=== PATIENT | female | born 1935 | race Caucasian/White ===

== ENCOUNTER → 2017-08-24 10:16 | Outpatient (CLI) | payer MEDICARE, SELFPAY ==
[2017-08-24 11:11] LABS: Add Manual Diff / Slide Review NO; Basophils Percent Auto 0.6 % (0-2); Eosinophils Percent Auto 1.6 % (2-4); Hematocrit 41.4 % (36-46); Hemoglobin 13.9 g/dL (12.0-16.0); Lymphocytes Percent Auto 24.3 % (25-40); Mean Corpuscular HGB Conc 33.7 % (30-36); Mean Corpuscular Hemoglobin 29.8 PG (26-34); Mean Corpuscular Volume 88.5 fL (80-100); Monocytes Percent Auto 7.4 % (3-14); Neutrophils Absolute Auto 5400 /uL (3000-5900); Neutrophils Percent Auto 66.1 % (50-75); Platelet Count 230 X10^3/uL (150-400); Red Blood Cell Count 4.68 X10^6/uL (4.0-5.2); Red Cell Distribution Width 13.9 % (11.6-14.8); White Blood Cell Count 8.2 X10^3/uL (4.5-11.0)
[2017-08-24 11:28] LABS: Alanine Aminotransferase 22 IU/L (9-52); Albumin Globulin Ratio 1.3 (1.0-2.8); Alkaline Phosphatase 71 U/L (38-126); Aspartate Aminotransferase 15 IU/L (14-36); Bilirubin Total 0.6 mg/dL (0.2-1.3); Blood Urea Nitrogen 20 mg/dL (7-17); Calcium 10.6 mg/dL (8.4-10.2); Carbon Dioxide 29 mmol/L (22-32); Chloride 99 mmol/L (98-107); Estimated Glomerular Filt Rate > 60.0 mL/min (>60); Glucose 138 mg/dL (80-110); HEMOLYSIS < 15 (0-50); Potassium 4.3 mmol/L (3.4-5.1); Sodium 138 mmol/L (137-145)
[2017-08-24 11:29] LABS: C-Reactive Protein Quant < 0.5 mg/dL (<1.0)
[2017-08-24 11:36] LABS: Hemoglobin A1C% w Est Avg Glu 7.4 % (4.0-6.0)
[2017-08-24 11:38] LABS: Erythrocyte Sedimentation Rate 2 MM/HR (0-20)
[2017-08-24 12:40] LABS: Thyroid Stimulating Hormone 1.45 uIU/mL (0.47-4.68)
== END ==
PROVIDERS: PCP Family Medicine; Visit Provider Family Medicine
DX: R41.3 Other amnesia (principal); E11.9 Type 2 diabetes mellitus without complications
CPT/HCPCS: 36415; 80053; 83036; 84443; 85025; 85651; 86140

== ENCOUNTER → 2017-08-26 06:40 | Outpatient (CLI) | payer MEDICARE, SELFPAY ==
--- NOTE | 2017-08-26 06:42 | DI.MRI.S_ITS ---
PROCEDURE: MR STROKE Pre- and post-contrast brain MRI, non-contrast brain MR angiogram, pre- and postcontrast neck MR angiogram INDICATIONS: memoruy imp TECHNIQUE: Brain: Noncontrast axial T1 spin echo, axial T2 fast spin echo, sagittal and axial FLAIR, coronal T2 fast spin echo, axial gradient echo, axial diffusion and ADC through the brain. After the administration of contrast, axial 3D VIBE of the cranial vasculature and brain. Brain MRA: Non-contrast 3-D time of flight MR angiogram, with multiple pdpfdzc-gmfrxsjub-rrsnorzflw (MIP) reformats performed. Neck MRA: Axial and sagittal TruFISP through the neck. Coronal dynamic MR angiogram during administration of contrast in the arterial and venous phases, with 3-dimenstional uubqgyc-tszyhiwzq-othcelbhta (MIP) reformats constructed from subtraction images. COMPARISON: [facility], , CAROTID ARTERY DOPPLER BILAT, 04/30/2016, 10:45. FINDINGS: Image quality: Partially degraded by motion artifact. BRAIN: CSF spaces: Ventricles are normal in size and shape. Basal cisterns are patent. No extra-axial fluid collections. Brain: No intracranial bleeds or mass effects. Moderate diffuse cerebral volume loss is present. There is a mild degree of patchy low signal intensity within the periventricular and subcortical white matter. Marie-white matter interface is normal. Diffusion weighted images show no acute ischemic insults. Brainstem appears normal. Normal intravascular flow voids are present. No abnormal intracranial enhancement. Skull and face: Calvarial marrow signal is normal. Orbits appear normal. Sinuses: Sinuses and mastoids are clear. BRAIN MR ANGIOGRAM: Anterior circulation: Intracranial internal carotid arteries are grossly normal in size and enhancement. The flow within the paired anterior cerebral arteries is grossly normal and symmetric. The flow within the middle cerebral arteries is grossly normal and symmetric. The anterior communicating artery is seen. No stenoses, occlusions, or aneurysms. Posterior circulation: The visualized portions of the vertebral arteries demonstrate grossly normal caliber, and join to form a normal appearing basilar artery. The flow within the posterior cerebral arteries is normal and symmetric. No stenoses, occlusions, or aneurysms. NECK MR ANGIOGRAM: [employer] T2 imaging through the neck is grossly unremarkable. There is a 30 mm diameter well-circumscribed high T2 intensity focus within the posterior mediastinum. Thoracic aortic arch is widely patent. There is a branching anatomy. The innominate artery is patent. The right proximal subclavian artery is not well seen. The right vertebral artery is not well-seen proximally, but is otherwise patent. The right common carotid artery is not well seen within its proximal, nor mid aspects. The distal right common carotid artery is patent. The right internal and external carotid arteries are patent. The left common carotid artery is not well-seen proximally, but is patent distally. The left internal and external carotid arteries are patent. The left subclavian artery is patent. The left vertebral artery origin is not well-seen, but otherwise is patent. IMPRESSION: Limited examination secondary to motion artifact. BRAIN MRI: 1. No acute intracranial abnormality. No recent infarct. 2. Volume loss and small vessel ischemic disease. BRAIN MR ANGIOGRAM: Grossly negative cerebral MR angiography. NECK MR ANGIOGRAM: 1. No internal carotid artery stenosis bilaterally. 2. Suboptimally visualized proximal vertebral arteries, which are otherwise patent. 3. Indeterminate high T2 intensity focus within the posterior mediastinum. This could be further assessed with IV contrast enhanced chest CT, if clinically indicated. Dictated by: Karey Elias M.D. on 08/26/2017 at 10:36 Approved by: Karey Elias M.D. on 08/26/2017 at 10:49
== END ==
PROVIDERS: PCP Family Medicine; Visit Provider Family Medicine
DX: R41.3 Other amnesia (principal)
CPT/HCPCS: 70553

== ENCOUNTER 2017-10-03 12:39 | Emergency (ER) | payer MEDICARE, SELFPAY ==
[2017-10-03 12:57] VITALS: BP 142/65; PULSE 76; RESP 17; TEMP 36.6; O2SAT 98
[2017-10-03 13:02] VITALS: BP 142/65; PULSE 76; RESP 17; TEMP 36.6; O2SAT 98
--- NOTE | 2017-10-03 13:16 | DI.CT.S_ITS ---
PROCEDURE: CT HEAD/BRAIN WO CON INDICATIONS: Ground level fall hitting forehead TECHNIQUE: Noncontrast 4.5 mm thick angled axial sections acquired from the foramen magnum to the vertex, with coronal and sagittal reformats. For radiation dose reduction, the following was used: automated exposure control, adjustment of mA and/or kV according to patient size. COMPARISON: None. FINDINGS: Image quality: Excellent. CSF spaces: Basal cisterns are patent. No extra-axial fluid collections. The ventricles are symmetric in size and shape. Brain: No intracranial bleeds or masses. There is cerebral volume loss for age, with resultant ventricular and sulcal prominence. There are periventricular and deep white matter chronic small vessel ischemic changes. There is intracranial internal carotid artery atherosclerosis. Skull and face: Calvarium and visualized facial bones appear intact, without suspicious lesions. Right frontal scalp swelling. Sinuses: Visualized sinuses and mastoids are clear. IMPRESSION: No acute intracranial process. Right frontal scalp swelling. Dictated by: Perez Trinidad M.D. on 10/03/2017 at 13:52 Approved by: Perez Trinidad M.D. on 10/03/2017 at 13:54
--- NOTE | 2017-10-03 13:16 | DI.RAD.S_ITS ---
PROCEDURE: XR KNEE RT 3V INDICATIONS: Ground level fall causing impact to anterior right knee TECHNIQUE: 3 views of the knee were acquired. COMPARISON: None. FINDINGS: Bones: No fractures or dislocations. No suspicious bony lesions. Postsurgical changes related to medial unicompartmental arthroplasty. Soft tissues: No joint effusion. No suspicious soft tissue calcifications. Presumed dystrophic calcification projecting in the pretibial soft tissues. IMPRESSION: No fracture. Dictated by: Perez Trinidad M.D. on 10/03/2017 at 14:10 Approved by: Perez Trinidad M.D. on 10/03/2017 at 14:11
--- NOTE | 2017-10-03 13:28 | ED_ITS ---
HPI - Fall <PREET Rocha - Last Filed: 10/03/17 21:49> General Chief Complaint: Fall Stated Complaint: fell and hit head Time Seen by Provider: 10/03/17 13:01 History of Present Illness HPI Narrative: 82-year-old female here for complaint of a ground level fall prior to arrival where she stumbled and fell forward causing her to hit her forehead on the ground and also her right knee. Patient denies any loss of consciousness. No nausea or vomiting. She has had gait issues over the past few months and has been seen by her primary care provider for this. She did have an MRI that was negative for any acute findings. She denies any acute weakness or neurological symptoms. She denies any neck pain. Patient has a walker at home however she was not using it at the time that she fell. No other concerns or complaints. MD complaint: fall Related Data Previous Rx's Medication Instructions Recorded estradiol 1 mg PO QDAY #90 tab 05/17/17 furosemide 20 mg PO QDAY #90 tab 05/17/17 insulin glargine [Lantus U-100 20 unit SQ QDAY #2 vial 05/17/17 Insulin] levothyroxine 0.05 mg PO QAM #90 tab 05/17/17 losartan 100 mg PO QDAY #90 tab 05/17/17 lovastatin 20 mg PO HS #90 tab 05/17/17 metformin 1,000 mg PO BIDCC #180 tab 05/17/17 glyburide 5 mg PO BID #180 tab 05/31/17 paroxetine 20 mg tablet 20 mg PO DAILY #60 tab 08/02/17 blood sugar diagnostic strips #100 each 08/20/17 blood sugar diagnostic strips #100 each 09/22/17 Allergies Allergy/AdvReac Type Severity Reaction Status Date / Time penicillin G [PENICILLIN G] Allergy Mild Unverified 08/24/17 09:31 Review of Systems <PREET Rocha - Last Filed: 10/03/17 21:49> Constitutional Denies chills, Denies fever(s), Denies lethargy and Denies weakness Eyes Denies change in vision, Denies eye discharge, Denies irritation and Denies loss of vision ENT Ears, Nose, Mouth, and Throat: Denies change in voice, Denies neck pain and Denies sore throat Cardiovascular Denies chest pain, Denies irregular heart rhythm, Denies lightheadedness, Denies palpitations, Denies dyspnea, Denies dyspnea on exertion and Denies orthopnea Respiratory Denies cough, Denies dyspnea, Denies dyspnea on exertion and Denies wheezing Gastrointestinal Gastrointestinal: Denies abdominal pain, Denies change in bowel habits, Denies diarrhea, Denies nausea and Denies vomiting Genitourinary Denies hematuria, Denies flank pain, Denies urinary incontinence and Denies urinary urgency Musculoskeletal Denies neck pain Comments: Right knee pain Integumentary/Breasts Denies pruritus, Denies erythema, Denies rash and Denies wounds Neurologic Denies confusion, Denies loss of vision and Denies weakness Comments: Minor head injury Psychiatric Denies anxiety, Denies confusion, Denies depression, Denies homicidal ideation and Denies suicidal ideation Endocrine Denies palpitations Allergic/Immunologic Denies wheezing Exam <PREET Rocha - Last Filed: 10/03/17 21:49> Initial Vital Signs Initial Vital Signs: Vital Signs Temperature 97.8 F 10/03/17 12:57 Pulse Rate 76 10/03/17 12:57 Respiratory Rate 17 10/03/17 12:57 Blood Pressure 142/65 H 10/03/17 12:57 Pulse Oximetry 98 10/03/17 12:57 Const General: cooperative and well developed Nutritional Appearance: well nourished Orientation: alert, awake, oriented x3 and not confused [facility] Head: No Arauz's sign, hematoma, No raccoon eyes and other (4 cm hematoma to the right forehead. No step-offs. Slight abrasion to the area no other open lesions. No Arauz signs. No raccoon eyes.) Mouth: oral mucosae normal and moist mucous membranes Eyes Eyelids: eyelids normal Conjunctivae: conjunctivae normal Sclera: sclerae normal Pupils: PERRL EOM: EOM intact bilaterally Neck Neck: full ROM and No tender Resp Effort & Inspection: normal respiratory effort, able to speak in complete sentences, no respiratory distress and no use of accessory muscles Auscultation: clear to auscultation bilaterally, no rales, no rhonchi and no wheezes Cardio Rate: regular rate Rhythm: regular rhythm Heart Sounds: no click, no gallops, no murmurs and no rubs Pulses: normal peripheral pulses Skin General: no rashes or lesions noted, No jaundice and No petechiae Neuro General: alert, awake, oriented x3, moves all extremities and not confused Cranial Nerves: CN's II-XI intact bilaterally and tongue midline Cognition: normal cognition Speech: speech normal Sensory Exam: no sensory deficits noted <Aminata Kebede DO - Last Filed: 10/06/17 08:21> Initial Vital Signs Initial Vital Signs: Vital Signs Temperature 97.8 F 10/03/17 12:57 Pulse Rate 76 10/03/17 12:57 Respiratory Rate 17 10/03/17 12:57 Blood Pressure 142/65 H 10/03/17 12:57 Pulse Oximetry 98 10/03/17 12:57 Course <PREET Rocha - Last Filed: 10/03/17 21:49> Orders Ordered: ED Orders 10/03/17 13:16 CT head/brain wo con Stat XR knee RT 3V Stat Vital Signs - 8 hr 10/03/17 12:57 10/03/17 13:02 Temperature 97.8 F 97.8 F Pulse Rate 76 76 Respiratory Rate 17 17 Blood Pressure 142/65 H Blood Pressure [Left Arm] 142/65 H Pulse Oximetry 98 98 <Aminata Kebede DO - Last Filed: 10/06/17 08:21> Orders Ordered: ED Orders 10/03/17 13:16 CT head/brain wo con Stat XR knee RT 3V Stat Vital Signs - 8 hr 10/03/17 12:57 10/03/17 13:02 Temperature 97.8 F 97.8 F Pulse Rate 76 76 Respiratory Rate 17 17 Blood Pressure 142/65 H Blood Pressure [Left Arm] 142/65 H Pulse Oximetry 98 98 MDM - Fall <PREET Rocha - Last Filed: 10/03/17 21:49> Imaging Data CT scan - head: Radiologist's impression: PROCEDURE: CT HEAD/BRAIN WO CON INDICATIONS: Ground level fall hitting forehead TECHNIQUE: Noncontrast 4.5 mm thick angled axial sections acquired from the foramen magnum to the vertex, with coronal and sagittal reformats. For radiation dose reduction, the following was used: automated exposure control, adjustment of mA and/or kV according to patient size. COMPARISON: None. FINDINGS: Image quality: Excellent. CSF spaces: Basal cisterns are patent. No extra-axial fluid collections. The ventricles are symmetric in size and shape. Brain: No intracranial bleeds or masses. There is cerebral volume loss for age , with resultant ventricular and sulcal prominence. There are periventricular and deep white matter chronic small vessel ischemic changes. There is intracranial internal carotid artery atherosclerosis. Skull and face: Calvarium and visualized facial bones appear intact, without suspicious lesions. Right frontal scalp swelling. Sinuses: Visualized sinuses and mastoids are clear. IMPRESSION: No acute intracranial process. Right frontal scalp swelling. Dictated by: Perez Trinidad M.D. on 10/03/2017 at 13:52 Approved by: Perez Trinidad M.D. on 10/03/2017 at 13:54 knee: Radiologist's impression: Patient: Isabella Lucero MR#: [id number] : 1935 Acct:[id number] Age/Sex: 82 / F Date of Service: 10/03/17 Loc: ED Accession Number: [id number] Procedure: XR knee RT 3V Ordering Provider: Charanjit Quinones PROCEDURE: XR KNEE RT 3V INDICATIONS: Ground level fall causing impact to anterior right knee TECHNIQUE: 3 views of the knee were acquired. COMPARISON: None. FINDINGS: Bones: No fractures or dislocations. No suspicious bony lesions. Postsurgical changes related to medial unicompartmental arthroplasty. Soft tissues: No joint effusion. No suspicious soft tissue calcifications. Presumed dystrophic calcification projecting in the pretibial soft tissues. IMPRESSION: No fracture. Dictated by: Perez Trinidad M.D. on 10/03/2017 at 14:10 Approved by: Perez Trinidad M.D. on 10/03/2017 at 14:11 [facility] Narrative Medical decision making narrative: Head CT was obtained was negative for any acute findings. X-ray of the right knee was also obtained and was negative for any acute findings. Signs and symptoms presents as contusion to the right knee in a minor head injury. [id number] Tylenol as needed for any discomfort. Follow up with primary care provider later this week for re-evaluation. Head injury instructions as provided with warning signs return to the emergency room. If any warning signs or worsening symptoms return emergency room. Discharge Plan Departure Patient Disposition: Home, Self-Care Clinical Impression: Contusion of knee, right, Minor closed head injury Discharge Date/Time: 10/03/17 14:48 Interventions: ED Discharge Assessment Last Done: 10/03/17 14:48 Instructions: DI for Closed Head Injury Activity Restrictions/Additional Instructions: Head CT was obtained was negative for any acute findings. X-ray of the right knee was also obtained and was negative for any acute findings. Signs and symptoms presents as contusion to the right knee in a minor head injury. Over- the-counter Tylenol as needed for any discomfort. Follow up with primary care provider later this week for re-evaluation. Head injury instructions as provided with warning signs return to the emergency room. If any warning signs or worsening symptoms return emergency room. Prescriptions: No Action insulin glargine [Lantus U-100 Insulin] 100 UNIT/1 ML solution 20 unit SQ QDAY Qty: 2 RF: 3 estradiol 1 MG tablet 1 mg PO QDAY Qty: 90 RF: 3 levothyroxine 50 MCG tablet 0.05 mg PO QAM Qty: 90 RF: 3 metformin 1,000 MG tablet 1,000 mg PO BIDCC Qty: 180 RF: 3 furosemide 20 MG tablet 20 mg PO QDAY Qty: 90 RF: 3 lovastatin 20 MG tablet 20 mg PO HS Qty: 90 RF: 3 losartan 100 MG tablet 100 mg PO QDAY Qty: 90 RF: 3 glyburide 5 MG tablet 5 mg PO BID Qty: 180 RF: 3 blood sugar diagnostic [Blood Glucose Test] strip .ROUTE .MEDSUPPLY Qty: 100 RF: 3 blood sugar diagnostic [Contour Next Test Strips] strip .ROUTE .MEDSUPPLY Qty: 100 RF: 3 paroxetine HCl [Paxil] 20 mg tablet 20 mg PO DAILY Qty: 60 RF: 3 Referrals: Pierre Chung MD [Primary Care Provider] - <Aminata Kebede DO - Last Filed: 10/06/17 08:21> Cosign ED Attending Stephanie Attestation: I was immediately available in the department for consultation. Documentation has been reviewed. I agree with assessment and plan.
== END 2017-10-03 14:48 | disposition home or self-care (01) ==
PROVIDERS: Emergency Provider Nurse Practitioner Family; PCP Family Medicine
DX: S80.01XA Contusion of right knee, initial encounter (principal); S09.90XA Unspecified injury of head, initial encounter; W01.0XXA Fall on same level from slipping, tripping and stumbling without subsequent striking against object, initial encounter
CPT/HCPCS: 70450; 73562; 99282; 99284

== ENCOUNTER → 2017-11-18 12:16 | Outpatient (CLI) | payer MEDICARE, SELFPAY ==
[2017-11-18 12:23] LABS: RBC Urine None Seen (0-5/HPF); WBC Urine None Seen (0-5/HPF)
[2017-11-18 13:02] LABS: Hemoglobin A1C% w Est Avg Glu 8.4 % (4.0-6.0)
[2017-11-18 13:03] LABS: BUN Creatinine Ratio 26.3 (6-22); Blood Urea Nitrogen 21 mg/dL (7-17); Calcium 10.9 mg/dL (8.4-10.2); Carbon Dioxide 29 mmol/L (22-32); Chloride 97 mmol/L (98-107); Estimated Glomerular Filt Rate > 60.0 mL/min (>60); Glucose 224 mg/dL (80-110); HEMOLYSIS < 15 (0-50); Potassium 4.6 mmol/L (3.4-5.1); Sodium 135 mmol/L (137-145)
[2017-11-18 14:44] LABS: Appearance Urine UA CLEAR; Bilirubin Urine UA NEGATIVE (NEGATIVE); Color Urine UA YELLOW; Glucose Urine UA 1+ g/dL (Normal); Ketones Urine UA NEGATIVE (NEGATIVE); Leukocyte Esterase Urine UA NEGATIVE (NEGATIVE); Nitrite Urine UA Negative (Negative); Occult Blood Urine UA NEGATIVE (Negative); Protein Urine UA NEGATIVE (Negative); Specific Gravity Urine UA 1.015 (1.000-1.035); Urobilinogen Urine UA 0.2 E.U./dL (0.2)
[2017-11-18 14:57] LABS: Bacteria Urine Many (>30); Culture Indicated Urine Cult Not Indicated; Squamous Epithelial Cell Urine 1-5 /HPF
== END ==
PROVIDERS: Family Provider Family Medicine; PCP Family Medicine; Visit Provider Family Medicine
DX: E11.9 Type 2 diabetes mellitus without complications (principal); R30.0 Dysuria
CPT/HCPCS: 36415; 80048; 81001; 83036

== ENCOUNTER 2017-12-23 14:36 | Emergency (ER) | payer MEDICARE, SELFPAY ==
[2017-12-23 14:38] VITALS: BP 185/86; PULSE 87; RESP 14; TEMP 36.9; O2SAT 96
--- NOTE | 2017-12-23 15:10 | ED.FALL ---
HPI - Fall General Chief Complaint: Fall Stated Complaint: Fall Time Seen by Provider: 12/23/17 15:10 Source: patient Mode of arrival: wheelchair Limitations: no limitations History of Present Illness HPI Narrative: Patient is an 82 year looking female who presents with a head injury. She has a history of balance problems. Today she fell and hit the top of her head. She was going out onto her porch without her walker she was trying to use the railings when she fell forward hitting the top of her head. No loss of consciousness she has no nausea vomiting no weakness she is not on any blood thinners. MD complaint: fall Related Data Home Medications Medication Instructions Recorded Confirmed glyburide 10 mg PO DAILY 12/23/17 12/23/17 Previous Rx's Medication Instructions Recorded estradiol 1 mg PO QDAY #90 tab 05/17/17 furosemide 20 mg PO QDAY #90 tab 05/17/17 levothyroxine 0.05 mg PO QAM #90 tab 05/17/17 losartan 100 mg PO QDAY #90 tab 05/17/17 lovastatin 20 mg PO HS #90 tab 05/17/17 metformin 1,000 mg PO BIDCC #180 tab 05/17/17 paroxetine 20 mg tablet 20 mg PO DAILY #60 tab 08/02/17 blood sugar diagnostic strips #100 each 08/20/17 donepezil 5 mg tablet 5 mg PO BEDTIME #60 tab 10/13/17 miscellaneous medical supply misc #1 each 12/13/17 insulin glargine (U-100) 100 30 unit SUBCUT QDAY #4 vial 12/15/17 unit/mL subcutaneous solution Allergies Allergy/AdvReac Type Severity Reaction Status Date / Time penicillin G [PENICILLIN G] Allergy Mild Verified 12/23/17 14:40 Review of Systems Review of Systems GENERAL: Denies chills, fatigue, malaise, fever, sweats, travel HEENT: Denies sinus pain, ear pain, sore throat, difficulty swallowing, neck pain RESPIRATORY: Denies dyspnea, cough, wheezing, hemoptysis, sputum. CARDIOVASCULAR: Denies chest pain, palpitations, orthopnea, edema GASTROINTESTINAL: Denies nausea, vomiting, abdominal pain, diarrhea, constipation, melena. : Denies dysuria, frequency, incontinence, hematuria, urinary retention, flank pain. MUSCULOSKELETAL: Denies weakness, joint pain, or bony pain SKIN: No rash, no erythema, no pruritus NEUROLOGIC:No LOC see HPI PSYCHIATRIC: No concerning psychosocial issues. 12 point review of systems is negative except for those stated above and HPI Exam Initial Vital Signs Initial Vital Signs: Vital Signs Temperature 98.4 F 12/23/17 14:38 Pulse Rate 87 12/23/17 14:38 Respiratory Rate 14 12/23/17 14:38 Blood Pressure 185/86 H 12/23/17 14:38 Pulse Oximetry 96 12/23/17 14:38 GENERAL: Alert well-appearing elderly female sitting in wheelchair HEENT: Contusion top of the head no depressions no crepitation,EOMI, pupils reactive, face symmetric, CARDIOVASCULAR: Regular rate and rhythm without murmurs, rubs or gallops. RESPIRATORY: Breath sounds equal bilaterally, no wheezes rales or rhonchi. ABDOMEN: Soft, nontender. Normoactive bowel sounds all 4 quadrants. No guarding or rebound. EXTREMITIES: Normal range of motion, no clubbing or edema. Neurovascularly intact NEUROLOGICAL: Alert and oriented x4.Normal gait and speech. Cranial nerves II through XII grossly intact. Gore Inserter strength equal bilaterally SKIN: Warm, dry, no laceration, no petechiae, no rashes or lesions. [facility] Medical History Cataract (Chronic ~2014) Diabetes mellitus (Chronic ~1996) Eczema (Chronic ~2013) Foot pain (Chronic ~1962) Fractures (Chronic ~1962) Hepatitis C (Chronic ~1948) Family History Brother No problems noted. Father No problems noted. Mother No problems noted. Social History Smoking Status: Never smoker Course Orders Ordered: ED Orders 12/23/17 15:17 CT head/brain wo con Stat Vital Signs - 8 hr 12/23/17 14:38 12/23/17 16:24 Temperature 98.4 F Pulse Rate 87 73 Respiratory Rate 14 18 Blood Pressure 185/86 H 160/73 H Pulse Oximetry 96 97 MDM - Fall Imaging Data CT scan - head: Radiologist's impression: PROCEDURE: CT HEAD/BRAIN WO CON INDICATIONS: 82-year-old woman fell and left parietal Hit head. TECHNIQUE: Noncontrast 4.5 mm thick angled axial sections acquired from the foramen magnum to the vertex, with coronal and sagittal reformats. For radiation dose reduction, the following was used: automated exposure control, adjustment of mA and/or kV according to patient size. COMPARISON: [facility], MR, MR STROKE, 08/26/2017, 7:23. [facility], CT, CT HEAD/BRAIN WO CON, 10/03/2017, 13:23. FINDINGS: Image quality: Excellent. CSF spaces: Basal cisterns are patent. No extra-axial fluid collections. The ventricles are symmetric in size and shape. Brain: No intracranial bleeds or masses. There is moderate cerebral volume loss for age, with resultant ventricular and sulcal prominence. There are moderate periventricular and deep white matter chronic small vessel ischemic changes. There is intracranial internal carotid artery atherosclerosis. Skull and face: Calvarium and visualized facial bones appear intact, without suspicious lesions. Left parietal scalp soft tissue contusion and subscalp hematoma. Sinuses: Visualized sinuses and mastoids are clear. IMPRESSION: 1. No acute intracranial abnormalities. 2. Cerebral volume loss and chronic microvascular ischemic changes. 3. Left parietal scalp contusion and subscalp hematoma. Dictated by: Pankaj Flower M.D. on 12/23/2017 at 15:46 Discharge Plan Departure Patient Disposition: Home Clinical Impression: Contusion of head Discharge Date/Time: 12/23/17 16:24 Interventions: ED Discharge Assessment Last Done: 12/23/17 16:24 Instructions: Contusion, Closed Head Injury Activity Restrictions/Additional Instructions: *You have been diagnosed with head contusion closed head injury *What to do: Ice, rest, fall precautions *Continue to take medications as directed Tylenol 650 mg every 6 hr if needed for pain *Follow up with your primary care provider in 2-3 days *Return to ER if you should have persistent vomiting increasing headache or any new, worsening or concerning symptoms Prescriptions: No Action estradiol 1 MG tablet 1 mg PO QDAY Qty: 90 RF: 3 levothyroxine 50 MCG tablet 0.05 mg PO QAM Qty: 90 RF: 3 metformin 1,000 MG tablet 1,000 mg PO BIDCC Qty: 180 RF: 3 furosemide 20 MG tablet 20 mg PO QDAY Qty: 90 RF: 3 lovastatin 20 MG tablet 20 mg PO HS Qty: 90 RF: 3 losartan 100 MG tablet 100 mg PO QDAY Qty: 90 RF: 3 blood sugar diagnostic [Blood Glucose Test] strip .ROUTE .MEDSUPPLY Qty: 100 RF: 3 miscellaneous medical supply misc .Route .MEDSUPPLY Qty: 1 RF: 0 insulin glargine [Lantus U-100 Insulin] 100 unit/mL solution 30 unit SUBCUT QDAY Qty: 4 RF: 3 donepezil [Aricept] 5 mg tablet 5 mg PO BEDTIME Qty: 60 RF: 5 paroxetine HCl [Paxil] 20 mg tablet 20 mg PO DAILY Qty: 60 RF: 3 glyburide 5 MG tablet 10 mg PO DAILY RF: 0 Referrals: Pierre Chung MD [Primary Care Provider] -
--- NOTE | 2017-12-23 15:17 | DI.CT.S_ITS ---
PROCEDURE: CT HEAD/BRAIN WO CON INDICATIONS: 82-year-old woman fell and left parietal Hit head. TECHNIQUE: Noncontrast 4.5 mm thick angled axial sections acquired from the foramen magnum to the vertex, with coronal and sagittal reformats. For radiation dose reduction, the following was used: automated exposure control, adjustment of mA and/or kV according to patient size. COMPARISON: [facility], MR, MR STROKE, 08/26/2017, 7:23. [facility], CT, CT HEAD/BRAIN WO CON, 10/03/2017, 13:23. FINDINGS: Image quality: Excellent. CSF spaces: Basal cisterns are patent. No extra-axial fluid collections. The ventricles are symmetric in size and shape. Brain: No intracranial bleeds or masses. There is moderate cerebral volume loss for age, with resultant ventricular and sulcal prominence. There are moderate periventricular and deep white matter chronic small vessel ischemic changes. There is intracranial internal carotid artery atherosclerosis. Skull and face: Calvarium and visualized facial bones appear intact, without suspicious lesions. Left parietal scalp soft tissue contusion and subscalp hematoma. Sinuses: Visualized sinuses and mastoids are clear. IMPRESSION: 1. No acute intracranial abnormalities. 2. Cerebral volume loss and chronic microvascular ischemic changes. 3. Left parietal scalp contusion and subscalp hematoma. Dictated by: Pankaj Flower M.D. on 12/23/2017 at 15:46 Approved by: Pankaj Flower M.D. on 12/23/2017 at 16:08
[2017-12-23 16:24] VITALS: BP 160/73; PULSE 73; RESP 18; O2SAT 97
== END 2017-12-23 16:24 | disposition home or self-care (01) ==
PROVIDERS: Emergency Provider Emergency Medicine; PCP Family Medicine
DX: S00.93XA Contusion of unspecified part of head, initial encounter (principal); W18.30XA Fall on same level, unspecified, initial encounter
CPT/HCPCS: 70450; 99282; 99284

== ENCOUNTER → 2018-02-01 11:06 | Outpatient (CLI) | payer MEDICARE, SELFPAY ==
[2018-02-01 12:18] LABS: Hemoglobin A1C% w Est Avg Glu 8.5 % (4.0-6.0)
[2018-02-01 12:43] LABS: BUN Creatinine Ratio 18.8 (6-22); Blood Urea Nitrogen 15 mg/dL (7-17); Calcium 10.6 mg/dL (8.4-10.2); Carbon Dioxide 24 mmol/L (22-32); Chloride 102 mmol/L (98-107); Estimated Glomerular Filt Rate > 60.0 mL/min (>60); Glucose 144 mg/dL (80-110); HEMOLYSIS < 15 (0-50); Potassium 4.5 mmol/L (3.4-5.1); Sodium 139 mmol/L (137-145)
== END ==
PROVIDERS: Family Provider Family Medicine; PCP Family Medicine; Visit Provider Family Medicine
DX: E11.9 Type 2 diabetes mellitus without complications (principal)
CPT/HCPCS: 36415; 80048; 83036

== ENCOUNTER → 2018-02-04 17:23 | Outpatient (CLI) | payer MEDICARE, SELFPAY ==
[2018-02-08 14:05] LABS: Parathyroid Hormone Int 78 pg/mL (14-64)
== END ==
PROVIDERS: PCP Family Medicine; Visit Provider Family Medicine
DX: E11.9 Type 2 diabetes mellitus without complications (principal)
CPT/HCPCS: 36415; 83970

== ENCOUNTER 2018-03-08 09:45 | Outpatient (RCR) | payer MEDICARE, SELFPAY ==
[2017-12-07 10:39] VITALS: BP 160/80; PULSE 68
--- NOTE | 2017-12-07 15:39 | PT.OIE ---
Current Diagnoses Other abnormalities of gait and mobility (12/07/17) Repeated falls (12/07/17) Weakness (12/07/17) Other reduced mobility (12/07/17) Past Medical History (Last Reviewed 10/03/17 @ 13:25 by PREET Rocha) Cataract (Chronic ~2014) Diabetes mellitus (Chronic ~1996) Eczema (Chronic ~2013) Foot pain (Chronic ~1962) Fractures (Chronic ~1962) Hepatitis C (Chronic ~194) Past Surgical History (Last Reviewed 10/03/17 @ 13:25 by PREET Rocha) Anesthesia (Resolved) Personal history of spine surgery (Resolved ~2003) Personal history of spine surgery (Resolved ~2005) Provider Visit Care Team Role Provider Type Sarah De Dios DO Family Provider Physician Specialty: [facility] Address: [address] [place] [address] Email: [email or web address] Pierre Chung MD Attending Provider Physician Primary Care Provider Specialty: [facility] Address: [address] [place] [address] Email: [email or web address] Physical Therapy Initial Evaluation PT-OP-A Visit Information Start: 12/07/17 09:46 Freq: Status: Active Protocol: Document 12/07/17 10:39 LRN (Rec: 12/07/17 11:55 LRN [id number]) Out-Patient Physical Therapy Visit Information Visit Information Visit Type Initial Evaluation Visit Start Time 10:39 Visit Stop Time 11:25 Total Visit Minutes 46 Visit Number 1 Number of SHEET METAL WELDER Visits 0 Evaluation Information Evaluation Date 12/07/17 PT-OP-B Current Condition Start: 12/07/17 09:46 Freq: Status: Active Protocol: Document 12/07/17 10:39 LRN (Rec: 12/07/17 11:55 LRN [id number]) Current Condition History of Current Condition Onset Date Started Falling 6 months ago, feeling weak after first fall 6 months ago. Current Complaints Weakness, falling daily. Dizzy with turning resulting in falls. History of Current Condition Pt states that after her first fall she began to feel weak and has suffered repeated falls. She reports falling 1- 2 times per day and has had 2 very big falls in the past 6 months. Last fall occured 2 months ago. First fall was due to turning to stop her dog from running out of the house . Second fall from reaching to support self when feeling a loss of balance and missed, causing a fall. She thinks she might have had a stroke because she can't remember phone numbers anymore. PT lives with daughter, adopted son and his sister. PMH: R Partial knee arthroplasty 2 yrs ago. Prior Treatments and Tests MRI, said she didn't have a concussion. Treatment Goals Patient/Caregiver Goals Pt goal is to be stronger ( ankle, toes, feet) to keep her from falling. 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 Current Functional Impairments (Reported) Functional Limitations- ADL's Difficulty with laundry and removing clothes from dryer, and is not able to fix meals as often. Can was single dishes if she has things to hang onto. Functional Limitations- Mobility/Gait Safer using a cane for gait but doesn't like to. 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 Therapy/Recovery Has a 15 yr old adopted son, daughter is taking care of him currently. Lives with daughter in one story home. Has 4 generations living together. Pt does not want to use a cane for gait. PT-OP-D Balance Start: 12/07/17 09:46 Freq: Status: Active Protocol: Document 12/07/17 10:39 LRN (Rec: 12/07/17 11:55 LRN [id number]) OP-PT Balance Assessment Sitting Balance Static Sitting Balance Ability Normal Dynamic Sitting Balance Ability Good Sitting Balance Comments Core weakness noted. Pt is slow to return to starting position and tends to lean backwards in static sitting. Standing Balance Static Standing Balance Ability Fair Dynamic Standing Balance Ability Poor Balance Tests Sheridan Balance Test Sheridan Balance Test Score 1 Single Limb Standing Single Limb- Right 0 sec's Single Limb- Left 0 sec's Sheridan Balance Assessment Evaluation Sitting to Standing Ability Independent w/out Hands Unsupported Stance Supervision- 2 minutes Sitting Unsupported, Feet on Floor Safely- 2 minutes Standing to Sitting Ability Independent, Uncontrolled Transfer Ability Supervision, Verbal Cues Unsupported Stance- Eyes Closed Supervision, 10 seconds Unsupported Stance- Eyes Open Assist to attain,<15 secs Reaching Forward Standing Safely, 5 inches Pick- Up Object From Floor Requires Assistance Look Behind Shoulder - Standing Supervision w/Turning Turning 360 Degrees Requires Assistance Unsupported Stance, Alternating Feet on Assist to Prevent Fall Stair Unsupported Tandem Stance Balance Lost- Step/Stand Unilateral Leg Stance Unable,assist to not fall Total Score Sheridan Total Score (out of 56 points) 21 Sheridan Impairment Rating 60 to 79% Impaired (Score 12- 22) Phillips Fall Scale Copyright Permission Jacqueline JM, Jacqueline RM, Yosef SJ. Development of a scale to identify the fall- prone patient. Can J Aging 1989;8;366-7. Angel Phillips (2009). Preventing patient falls. (2nd ed). [place]: Fowler. PT-OP-E Functional Tests Start: 12/07/17 09:46 Freq: Status: Active Protocol: Document 12/07/17 10:39 LRN (Rec: 12/07/17 11:55 LRN [id number]) Functional Tests Five Times Sit to Stand Test Score 27 sec's Comments Norm for 80-89 yo's is 14.8 sec's Timed Up and Go (TUG) Score 31 PT-OP-G Mobility & Gait Start: 12/07/17 09:46 Freq: Status: Active Protocol: Document 12/07/17 10:39 LRN (Rec: 12/07/17 11:55 LRN [id number]) OP Mobility Evaluation Transfers Sit to Stand INdependent OP Gait Assessment Gait Gait Assistance Required: Independent Comments Gait Comments Decreased step length on the right. Increased trunk sway with gait and excessive lean to the right. Pt takes frequent standing rest stops due to fatigue. PT-OP-M Strength Start: 12/07/17 09:46 Freq: Status: Active Protocol: Document 12/07/17 10:39 LRN (Rec: 12/07/17 14:34 LRN [id number]) Trunk Strength Trunk Manual Muscle Testing Core Stabilization Pt not able to maintain a stable core with MMT of lower extremities. Comments Formal MMT deferred due to time constraints. Hip Strength Hip Manual Muscle Testing Right Flexion (L2) 5 Normal Left Flexion (L2) 5 Normal Knee Strength Knee Manual Muscle Testing Right Flexion (S2) 5 Normal Extension (L3) 3+ Fair+ Comments Pt had difficulty maintaining core stability. Left Flexion (S2) 5 Normal Extension (L3) 5 Normal Comments Pt had difficulty maintaining core stability. Ankle/Foot Strength Ankle and Foot Manual Muscle Testing Right Dorsiflexion (L4) 5 Normal Plantarflexion (S1) 5 Normal Left Dorsiflexion (L4) 5 Normal Plantarflexion (S1) 5 Normal PT-OP-Q Treatments Start: 12/07/17 09:46 Freq: Status: Active Protocol: Document 12/07/17 10:39 LRN (Rec: 12/07/17 14:34 LRN [id number]) Therapeutic Exercises Other Exercises Sit to Stand Reps/Minutes 5x Comments Cuing to not assist with hands and to control descent. Self-Care/Home Management Treatment Education Patient Education Fall Risk Home Exercise Program Safety Other Education Discussed and educated pt to use walker when out in community and to/from therapy for safety with gait. Discussed concerns of pt increased fall risk and concerns of frequency of falls . Activities Self-Care/Home Management Activities Pt instructed in HEP of sit to stand ex's. Starting with 5 reps and progressing to 10 reps as tolerated. PT-OP-T Assessment and Plan Start: 12/07/17 09:46 Freq: Status: Active Protocol: Document 12/07/17 10:39 LRN (Rec: 12/07/17 11:55 LRN [id number]) Physical Therapy Assessment Rehab Potential Rehabilitation Potential Good Evaluation Complexity Number of Personal Factors/Comorbidities 3 or More Number of Body Systems Impaired 3 Clinical Presentation at Evaluation Evolving Impairments Impairments Activity Tolerance Balance Functional Activities Gait Strength Transfers Other Impairments Endurance Other Concerns Fall Risk Increased risk of falling. Patient reports falling 1-2 times daily. Age Related Concerns Diabetic, type II; Partial L knee replacement. 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 Barriers to Rehabilitation Age, Diabetes, pt not wanting to use assistive device for gait. Goals Three Impairment Pt lacks appropriate HEP. Short Term Goal (STG) Pt will be educated in an initial HEP of core, hip and balance ex's. STG Duration 02/14/18 It Instructor Goal (LTG) Pt will be independent in a HEP. LTG Duration 03/08/18 Two Impairment Decreased core strength. Jail Goal (LTG) Pt able to maintain core stability with use of LE's and report a decrease in frequency of falls. LTG Duration 03/08/18 1 Impairment Decreased balance per SHERIDAN score of 21/56 (>35 safe ambulation with AD). Jail Goal (LTG) Pt will improve SHERIDAN score to 35 and will demonstrate improved safety with gait ( able to turn with minimal loss of balance). LTG Duration 03/08/18 Assessment Summary Assessment Pt presents at an increased risk of falling per SHERIDAN Assessment, TUG assessment, and 5 Time Sit to Stand Test and SLS. The pt appeared to have poor endurance with noted SOB with gait ~30'. She comes to therapy without an assistive device, stating she has a cane and forgot it, but prefers not to use one. The pt did not appear to have LE weakness and did not appear to have notable neurological deficits (to present as a stroke as the pt feels she has had), but she definitely has decreased balance and is falling an excessive amount at home as reported 1-2 times per day. The pt is a little impulsive and will benefit from skilled physical therapy to improve her strength, endurance, balance, safety with gait and ability to turn without falling. Physical Therapy Plan Frequency and Duration Frequency of Treatment 2x/Week Plan of Care Start Date 12/07/17 Plan of Care End Date 03/08/18 Therapeutic Interventions Therapeutic Interventions Aquatic Therapy Balance Training Coordination Training Gait Training Home Exercise Program Neuromuscular Re-education Patient/Caregiver Education Self-Care/Home Management Therapeutic Activities Therapeutic Exercises Other Referrals/Consults Referrals/Consults Recommended If the pt continues to feel dizzy when turning a vestibular evaluation would be appropriate. Next Visit Focus/Plan Next Note Type Treatment Note Next Visit Plan Review sit to stand, start stair stepping and Shuttle Balance. Strengthening ex's & HEP for hip/core /ankles. Aerobic conditioning to improve endurance. Gait training with cane and walker.
--- NOTE | 2017-12-07 15:40 | PT.OPPOC ---
Current Diagnoses Other abnormalities of gait and mobility (12/07/17) Repeated falls (12/07/17) Weakness (12/07/17) Other reduced mobility (12/07/17) Provider Visit Care Team Role Provider Type Sarah De Dios DO Family Provider Physician Specialty: [facility] Practice Address: [address] [place] [address] Email: [email or web address] Pierre Chung MD Attending Provider Physician Primary Care Provider Specialty: [facility] Address: [address] [place] [address], [id number] Email: [email or web address] Plan Of Care PT-OP-T Assessment and Plan Start: 12/07/17 09:46 Freq: Status: Active Protocol: Document 12/07/17 10:39 LRN (Rec: 12/07/17 11:55 LRN [id number]) Physical Therapy Assessment Rehab Potential Rehabilitation Potential Good Evaluation Complexity Number of Personal Factors/Comorbidities 3 or More Number of Body Systems Impaired 3 Clinical Presentation at Evaluation Evolving Impairments Impairments Activity Tolerance Balance Functional Activities Gait Strength Transfers Other Impairments Endurance Other Concerns Fall Risk Increased risk of falling. Patient reports falling 1-2 times daily. Age Related Concerns Diabetic, type II; Partial L knee replacement. 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 Barriers to Rehabilitation Age, Diabetes, pt not wanting to use assistive device for gait. Goals Three Impairment Pt lacks appropriate HEP. Short Term Goal (STG) Pt will be educated in an initial HEP of core, hip and balance ex's. STG Duration 02/14/18 Intermediate Goal (LTG) Pt will be independent in a HEP. LTG Duration 03/08/18 Two Impairment Decreased core strength. Master Printer Goal (LTG) Pt able to maintain core stability with use of LE's and report a decrease in frequency of falls. LTG Duration 03/08/18 1 Impairment Decreased balance per SHERIDAN score of 21/56 (>35 safe ambulation with AD). Intermediate Goal (LTG) Pt will improve SHERIDAN score to 35 and will demonstrate improved safety with gait ( able to turn with minimal loss of balance). LTG Duration 03/08/18 Assessment Summary Assessment Pt presents at an increased risk of falling per SHERIDAN Assessment, TUG assessment, and 5 Time Sit to Stand Test and SLS. The pt appeared to have poor endurance with noted SOB with gait ~30'. She comes to therapy without an assistive device, stating she has a cane and forgot it, but prefers not to use one. The pt did not appear to have LE weakness and did not appear to have notable neurological deficits (to present as a stroke as the pt feels she has had), but she definitely has decreased balance and is falling an excessive amount at home as reported 1-2 times per day. The pt is a little impulsive and will benefit from skilled physical therapy to improve her strength, endurance, balance, safety with gait and ability to turn without falling. Physical Therapy Plan Frequency and Duration Frequency of Treatment 2x/Week Plan of Care Start Date 12/07/17 Plan of Care End Date 03/08/18 Therapeutic Interventions Therapeutic Interventions Aquatic Therapy Balance Training Coordination Training Gait Training Home Exercise Program Neuromuscular Re-education Patient/Caregiver Education Self-Care/Home Management Therapeutic Activities Therapeutic Exercises Other Referrals/Consults Referrals/Consults Recommended If the pt continues to feel dizzy when turning a vestibular evaluation would be appropriate. Next Visit Focus/Plan Next Note Type Treatment Note Next Visit Plan Review sit to stand, start stair stepping and Shuttle Balance. Strengthening ex's & HEP for hip/core /ankles. Aerobic conditioning to improve endurance. Gait training with cane and walker. Plan of Care Dates Plan of Care Start Date 12/07/17 Plan of Care End Date 03/08/18 Please Sign and Return: I have reviewed this Plan of Care and certify that the skilled therapy services above are required to meet the patient?s needs. Physician Signature Date Printed Name and Credentials Clinical Instructor Signature Printed Name and Credentials
--- NOTE | 2017-12-16 09:55 | PT.OTN ---
Current Diagnoses Repeated falls (12/16/17) Weakness (12/16/17) Physical Therapy Treatment Note PT-OP-A Visit Information Start: 12/07/17 09:46 Freq: Status: Active Protocol: Document 12/16/17 09:55 DLM (Rec: 12/16/17 13:45 DLM [id number]) Out-Patient Physical Therapy Visit Information Visit Information Visit Type Treatment Note Visit Start Time 09:50 Visit Stop Time 10:30 Total Visit Minutes 40 Visit Number 2 Number of FIGHT MANAGER Visits 0 Evaluation Information Evaluation Date 12/07/17 PT-OP-B Current Condition Start: 12/07/17 09:46 Freq: Status: Active Protocol: Document 12/07/17 10:39 LRN (Rec: 12/07/17 11:55 LRN [id number]) Current Condition History of Current Condition Onset Date Started Falling 6 months ago, feeling weak after first fall 6 months ago. Current Complaints Weakness, falling daily. Dizzy with turning resulting in falls. History of Current Condition Pt states that after her first fall she began to feel weak and has suffered repeated falls. She reports falling 1- 2 times per day and has had 2 very big falls in the past 6 months. Last fall occured 2 months ago. First fall was due to turning to stop her dog from running out of the house . Second fall from reaching to support self when feeling a loss of balance and missed, causing a fall. She thinks she might have had a stroke because she can't remember phone numbers anymore. PT lives with daughter, adopted son and his sister. PMH: R Partial knee arthroplasty 2 yrs ago. Prior Treatments and Tests MRI, said she didn't have a concussion. Treatment Goals Patient/Caregiver Goals Pt goal is to be stronger ( ankle, toes, feet) to keep her from falling. 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 Current Functional Impairments (Reported) Functional Limitations- ADL's Difficulty with laundry and removing clothes from dryer, and is not able to fix meals as often. Can was single dishes if she has things to hang onto. Functional Limitations- Mobility/Gait Safer using a cane for gait but doesn't like to. 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 Therapy/Recovery Has a 15 yr old adopted son, daughter is taking care of him currently. Lives with daughter in one story home. Has 4 generations living together. Pt does not want to use a cane for gait. PT-OP-C Subjective Start: 12/07/17 09:46 Freq: Status: Active Protocol: Document 12/16/17 09:55 DLM (Rec: 12/16/17 13:45 DLM [id number]) OP-PT Subjective Patient Comments Patient Comments She has not done any exercises at home. She was busy with taking her youngest Son to [place]. She is having no pain. She has been using her walker and has had no falls. PT-OP-D Balance Start: 12/07/17 09:46 Freq: Status: Active Protocol: Document 12/07/17 10:39 LRN (Rec: 12/07/17 11:55 LRN [id number]) OP-PT Balance Assessment Sitting Balance Static Sitting Balance Ability Normal Dynamic Sitting Balance Ability Good Sitting Balance Comments Core weakness noted. Pt is slow to return to starting position and tends to lean backwards in static sitting. Standing Balance Static Standing Balance Ability Fair Dynamic Standing Balance Ability Poor Balance Tests Pruett Balance Test Pruett Balance Test Score 1 Single Limb Standing Single Limb- Right 0 sec's Single Limb- Left 0 sec's Pruett Balance Assessment Evaluation Sitting to Standing Ability Independent w/out Hands Unsupported Stance Supervision- 2 minutes Sitting Unsupported, Feet on Floor Safely- 2 minutes Standing to Sitting Ability Independent, Uncontrolled Transfer Ability Supervision, Verbal Cues Unsupported Stance- Eyes Closed Supervision, 10 seconds Unsupported Stance- Eyes Open Assist to attain,<15 secs Reaching Forward Standing Safely, 5 inches Pick- Up Object From Floor Requires Assistance Look Behind Shoulder - Standing Supervision w/Turning Turning 360 Degrees Requires Assistance Unsupported Stance, Alternating Feet on Assist to Prevent Fall Stair Unsupported Tandem Stance Balance Lost- Step/Stand Unilateral Leg Stance Unable,assist to not fall Total Score Pruett Total Score (out of 56 points) 21 Pruett Impairment Rating 60 to 79% Impaired (Score 12- 22) Phillips Fall Scale Copyright Permission Jacqueline COLBY, Jacqueline RM, Yosef SJ. Development of a scale to identify the fall- prone patient. Can J Aging 1989;8;366-7. Angel Phillips (2009). Preventing patient falls. (2nd ed). [place]: Fowler. PT-OP-E Functional Tests Start: 12/07/17 09:46 Freq: Status: Active Protocol: Document 12/07/17 10:39 LRN (Rec: 12/07/17 11:55 LRN [id number]) Functional Tests Five Times Sit to Stand Test Score 27 sec's Comments Norm for 80-89 yo's is 14.8 sec's Timed Up and Go (TUG) Score 31 PT-OP-G Mobility & Gait Start: 12/07/17 09:46 Freq: Status: Active Protocol: Document 12/07/17 10:39 LRN (Rec: 12/07/17 11:55 LRN [id number]) OP Mobility Evaluation Transfers Sit to Stand INdependent OP Gait Assessment Gait Gait Assistance Required: Independent Comments Gait Comments Decreased step length on the right. Increased trunk sway with gait and excessive lean to the right. Pt takes frequent standing rest stops due to fatigue. PT-OP-M Strength Start: 12/07/17 09:46 Freq: Status: Active Protocol: Document 12/07/17 10:39 LRN (Rec: 12/07/17 14:34 LRN [id number]) Trunk Strength Trunk Manual Muscle Testing Core Stabilization Pt not able to maintain a stable core with MMT of lower extremities. Comments Formal MMT deferred due to time constraints. Hip Strength Hip Manual Muscle Testing Right Flexion (L2) 5 Normal Left Flexion (L2) 5 Normal Knee Strength Knee Manual Muscle Testing Right Flexion (S2) 5 Normal Extension (L3) 3+ Fair+ Comments Pt had difficulty maintaining core stability. Left Flexion (S2) 5 Normal Extension (L3) 5 Normal Comments Pt had difficulty maintaining core stability. Ankle/Foot Strength Ankle and Foot Manual Muscle Testing Right Dorsiflexion (L4) 5 Normal Plantarflexion (S1) 5 Normal Left Dorsiflexion (L4) 5 Normal Plantarflexion (S1) 5 Normal PT-OP-Q Treatments Start: 12/07/17 09:46 Freq: Status: Active Protocol: Document 12/16/17 09:55 DLM (Rec: 12/16/17 13:45 DLM [email or web address]) Cardio Equipment Recumbent Bicycle Duration (Minutes) 5 Resistance 6 Other assist on and off Therapeutic Exercises Sitting Exercises 4 Sitting Exercise Name ankle pumps Side bilateral Reps/Minutes x 10 reps 3 Sitting Exercise Name knee ext Side bilateral Reps/Minutes x 10 reps 2 Sitting Exercise Name marching Side bilateral Reps/Minutes x 10 reps 1 Sitting Exercise Name core isometric Reps/Minutes x 10 reps Standing Exercises 1 Standing Exercise Name marching Equipment Used in parallel bars Reps/Minutes 2 laps Other Exercises Sit to Stand Reps/Minutes 5 reps, 3 trials Comments she needs UE assist, decreased balance with attempt to fully straighten Neuro Re-Education Treatment Balance Activities 4 Details step out and back with single limb Surface firm Equipment in parallel bars Reps/Duration 4 x 5 reps each LE Comments balance improved with training , more difficulty stepping with right than left 3 Details side-stepping Surface firm Equipment in parallel bars Reps/Duration 4 laps Comments needs UE support for balance 2 Details standing balance in narrow base of support Surface firm Equipment in parallel bars Reps/Duration 3 reps of 10 sec each 1 Details standing balance without UE support- EO, EC, head motions Surface firm Equipment in parallel bars Self-Care/Home Management Treatment Education Patient Education Fall Risk Home Exercise Program Safety PT-OP-T Assessment and Plan Start: 12/07/17 09:46 Freq: Status: Active Protocol: Document 12/16/17 09:55 DLM (Rec: 12/16/17 13:45 DLM [id number]) Physical Therapy Assessment Impairments Impairments Activity Tolerance Balance Functional Activities Gait Strength Transfers Progress Towards Goals Progress Towards Goals Slow Progress due to Activity Tolerance Progress Comments she has been out of town and not doing HEP Assessment Summary Assessment Pt to therapy in wheelchair today. When ambulating in the clinic she held the back of the wheelchair like a fWW. She reports she is using her walker at home to prevent falls. She fatigues quickly with activities in standing and needs seated activities between standing activities. Over-all she tolerated treatment session well. Encouraged pt to start exercises at home (HEP). Anticipatory balance reactions are delayed and inaffective. Physical Therapy Plan Frequency and Duration Frequency of Treatment 2x/Week Plan of Care Start Date 12/07/17 Plan of Care End Date 03/08/18 Therapeutic Interventions Therapeutic Interventions Aquatic Therapy Balance Training Coordination Training Gait Training Home Exercise Program Neuromuscular Re-education Patient/Caregiver Education Self-Care/Home Management Therapeutic Activities Therapeutic Exercises Other Referrals/Consults Referrals/Consults Recommended no dizziness reported this visit, continue to monitor Next Visit Focus/Plan Next Note Type Treatment Note Next Visit Plan Focus on static standing balance with anticipatory balance reactions with progression to dynamic activities as she progresses.
--- NOTE | 2017-12-20 16:01 | PT.OTN ---
Current Diagnoses Repeated falls (12/20/17) Weakness (12/20/17) Physical Therapy Treatment Note PT-OP-A Visit Information Start: 12/07/17 09:46 Freq: Status: Active Protocol: Document 12/20/17 16:00 EA (Rec: 12/20/17 16:01 EA [id number]) Out-Patient Physical Therapy Visit Information Visit Information Visit Type Treatment Note Visit Start Time 15:15 Visit Stop Time 16:00 Total Visit Minutes 40 Visit Number 3 Number of HEALTHCARE ADMINISTRATION INTERN Visits 0 PT-OP-B Current Condition Start: 12/07/17 09:46 Freq: Status: Active Protocol: Document 12/07/17 10:39 LRN (Rec: 12/07/17 11:55 LRN [id number]) Current Condition History of Current Condition Onset Date Started Falling 6 months ago, feeling weak after first fall 6 months ago. Current Complaints Weakness, falling daily. Dizzy with turning resulting in falls. History of Current Condition Pt states that after her first fall she began to feel weak and has suffered repeated falls. She reports falling 1- 2 times per day and has had 2 very big falls in the past 6 months. Last fall occured 2 months ago. First fall was due to turning to stop her dog from running out of the house . Second fall from reaching to support self when feeling a loss of balance and missed, causing a fall. She thinks she might have had a stroke because she can't remember phone numbers anymore. PT lives with daughter, adopted son and his sister. PMH: R Partial knee arthroplasty 2 yrs ago. Prior Treatments and Tests MRI, said she didn't have a concussion. Treatment Goals Patient/Caregiver Goals Pt goal is to be stronger ( ankle, toes, feet) to keep her from falling. Prior Functional Status Baseline Function- ADL's Independent Baseline Function- Mobility Independent Baseline Function- Other Able to fill testing shaking shipping, do laundry, and remove clothes from dryer, fix meals, walk without an assistive device, and drive. Current Functional Impairments (Reported) Functional Limitations- ADL's Difficulty with laundry and removing clothes from dryer, and is not able to fix meals as often. Can was single dishes if she has things to hang onto. Functional Limitations- Mobility/Gait Safer using a cane for gait but doesn't like to. 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 Therapy/Recovery Has a 15 yr old adopted son, daughter is taking care of him currently. Lives with daughter in one story home. Has 4 generations living together. Pt does not want to use a cane for gait. PT-OP-C Subjective Start: 12/07/17 09:46 Freq: Status: Active Protocol: Document 12/20/17 13:00 EA (Rec: 12/20/17 16:00 EA [id number]) OP-PT Subjective Patient Comments Patient Comments Pt reports that she has been walking at home sometimes with no walker. PT-OP-D Balance Start: 12/07/17 09:46 Freq: Status: Active Protocol: Document 12/07/17 10:39 LRN (Rec: 12/07/17 11:55 LRN [id number]) OP-PT Balance Assessment Sitting Balance Static Sitting Balance Ability Normal Dynamic Sitting Balance Ability Good Sitting Balance Comments Core weakness noted. Pt is slow to return to starting position and tends to lean backwards in static sitting. Standing Balance Static Standing Balance Ability Fair Dynamic Standing Balance Ability Poor Balance Tests Pruett Balance Test Pruett Balance Test Score 1 Single Limb Standing Single Limb- Right 0 sec's Single Limb- Left 0 sec's Pruett Balance Assessment Evaluation Sitting to Standing Ability Independent w/out Hands Unsupported Stance Supervision- 2 minutes Sitting Unsupported, Feet on Floor Safely- 2 minutes Standing to Sitting Ability Independent, Uncontrolled Transfer Ability Supervision, Verbal Cues Unsupported Stance- Eyes Closed Supervision, 10 seconds Unsupported Stance- Eyes Open Assist to attain,<15 secs Reaching Forward Standing Safely, 5 inches Pick- Up Object From Floor Requires Assistance Look Behind Shoulder - Standing Supervision w/Turning Turning 360 Degrees Requires Assistance Unsupported Stance, Alternating Feet on Assist to Prevent Fall Stair Unsupported Tandem Stance Balance Lost- Step/Stand Unilateral Leg Stance Unable,assist to not fall Total Score Pruett Total Score (out of 56 points) 21 Pruett Impairment Rating 60 to 79% Impaired (Score 12- 22) Jacqueline Fall Scale Copyright Permission Jacqueline COLBY, Jacqueline RM, Yosef SJ. Development of a scale to identify the fall- prone patient. Can J Aging 1989;8;366-7. Angel Phillips (2009). Preventing patient falls. (2nd ed). [place]: Fowler. PT-OP-E Functional Tests Start: 12/07/17 09:46 Freq: Status: Active Protocol: Document 12/07/17 10:39 LRN (Rec: 12/07/17 11:55 LRN [id number]) Functional Tests Five Times Sit to Stand Test Score 27 sec's Comments Norm for 80-89 yo's is 14.8 sec's Timed Up and Go (TUG) Score 31 PT-OP-G Mobility & Gait Start: 12/07/17 09:46 Freq: Status: Active Protocol: Document 12/07/17 10:39 LRN (Rec: 12/07/17 11:55 LRN [id number]) OP Mobility Evaluation Transfers Sit to Stand INdependent OP Gait Assessment Gait Gait Assistance Required: Independent Comments Gait Comments Decreased step length on the right. Increased trunk sway with gait and excessive lean to the right. Pt takes frequent standing rest stops due to fatigue. PT-OP-M Strength Start: 12/07/17 09:46 Freq: Status: Active Protocol: Document 12/07/17 10:39 LRN (Rec: 12/07/17 14:34 LRN [id number]) Trunk Strength Trunk Manual Muscle Testing Core Stabilization Pt not able to maintain a stable core with MMT of lower extremities. Comments Formal MMT deferred due to time constraints. Hip Strength Hip Manual Muscle Testing Right Flexion (L2) 5 Normal Left Flexion (L2) 5 Normal Knee Strength Knee Manual Muscle Testing Right Flexion (S2) 5 Normal Extension (L3) 3+ Fair+ Comments Pt had difficulty maintaining core stability. Left Flexion (S2) 5 Normal Extension (L3) 5 Normal Comments Pt had difficulty maintaining core stability. Ankle/Foot Strength Ankle and Foot Manual Muscle Testing Right Dorsiflexion (L4) 5 Normal Plantarflexion (S1) 5 Normal Left Dorsiflexion (L4) 5 Normal Plantarflexion (S1) 5 Normal PT-OP-Q Treatments Start: 12/07/17 09:46 Freq: Status: Active Protocol: Document 12/20/17 13:00 EA (Rec: 12/20/17 16:00 EA [id number]) Cardio Equipment Recumbent Bicycle Duration (Minutes) 5 Resistance 6 Other assist on and off Therapeutic Exercises Sitting Exercises 2 Sitting Exercise Name marching Side bilateral Reps/Minutes x 10 reps 1 Sitting Exercise Name core isometric Reps/Minutes x 10 reps Standing Exercises 3 Standing Exercise Name heel/toe raises Reps/Minutes x 10 reps 2 Standing Exercise Name wobble board with no HS: FWD/ SWD Reps/Minutes x 5 SH x 5 reps 1 Standing Exercise Name marching on foam with single hand support Equipment Used in parallel bars Reps/Minutes 2 laps Neuro Re-Education Treatment Balance Activities 4 Details step out and back with single limb Surface firm Equipment in parallel bars Reps/Duration 4 x 5 reps each LE Comments balance improved with training , more difficulty stepping with right than left 3 Details side-stepping Surface firm Equipment in parallel bars Reps/Duration 4 laps Comments needs UE support for balance 2 Details standing balance in narrow base of support Surface firm Equipment in parallel bars Reps/Duration 3 reps of 10 sec each 1 Details standing balance without UE support- EO, EC, head motions Surface firm Equipment in parallel bars PT-OP-T Assessment and Plan Start: 12/07/17 09:46 Freq: Status: Active Protocol: Document 12/20/17 13:00 RUSSEL (Rec: 12/20/17 16:00 RUSSEL [id number]) Physical Therapy Assessment Assessment Summary Assessment Tolerated treatment well. Physical Therapy Plan Next Visit Focus/Plan Next Note Type Treatment Note
--- NOTE | 2017-12-23 12:29 | PT.OTN ---
Current Diagnoses Repeated falls (12/23/17) Weakness (12/23/17) Physical Therapy Treatment Note PT-OP-A Visit Information Start: 12/07/17 09:46 Freq: Status: Active Protocol: Document 12/23/17 09:49 LRN (Rec: 12/23/17 10:06 LRN [id number]) Out-Patient Physical Therapy Visit Information Visit Information Visit Type Treatment Note Visit Start Time 09:49 Visit Stop Time 10:35 Total Visit Minutes 46 Visit Number 4 Number of STATEMENT CLERKS SUPERVISOR Visits 0 Evaluation Information Evaluation Date 12/07/17 PT-OP-B Current Condition Start: 12/07/17 09:46 Freq: Status: Active Protocol: Document 12/07/17 10:39 LRN (Rec: 12/07/17 11:55 LRN [id number]) Current Condition History of Current Condition Onset Date Started Falling 6 months ago, feeling weak after first fall 6 months ago. Current Complaints Weakness, falling daily. Dizzy with turning resulting in falls. History of Current Condition Pt states that after her first fall she began to feel weak and has suffered repeated falls. She reports falling 1- 2 times per day and has had 2 very big falls in the past 6 months. Last fall occured 2 months ago. First fall was due to turning to stop her dog from running out of the house . Second fall from reaching to support self when feeling a loss of balance and missed, causing a fall. She thinks she might have had a stroke because she can't remember phone numbers anymore. PT lives with daughter, adopted son and his sister. PMH: R Partial knee arthroplasty 2 yrs ago. Prior Treatments and Tests MRI, said she didn't have a concussion. Treatment Goals Patient/Caregiver Goals Pt goal is to be stronger ( ankle, toes, feet) to keep her from falling. Prior Functional Status Baseline Function- ADL's Independent Baseline Function- Mobility Independent Baseline Function- Other Able to fill services coordinator, do laundry, and remove clothes from dryer, fix meals, walk without an assistive device, and drive. Current Functional Impairments (Reported) Functional Limitations- ADL's Difficulty with laundry and removing clothes from dryer, and is not able to fix meals as often. Can was single dishes if she has things to hang onto. Functional Limitations- Mobility/Gait Safer using a cane for gait but doesn't like to. 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 Therapy/Recovery Has a 15 yr old adopted son, daughter is taking care of him currently. Lives with daughter in one story home. Has 4 generations living together. Pt does not want to use a cane for gait. PT-OP-C Subjective Start: 12/07/17 09:46 Freq: Status: Active Protocol: Document 12/23/17 09:49 LRN (Rec: 12/23/17 10:06 LRN [id number]) OP-PT Subjective Patient Comments Patient Comments Feeling forgetful. Forgot assistive device but has caregiver with her. PT-OP-D Balance Start: 12/07/17 09:46 Freq: Status: Active Protocol: Document 12/07/17 10:39 LRN (Rec: 12/07/17 11:55 LRN [id number]) OP-PT Balance Assessment Sitting Balance Static Sitting Balance Ability Normal Dynamic Sitting Balance Ability Good Sitting Balance Comments Core weakness noted. Pt is slow to return to starting position and tends to lean backwards in static sitting. Standing Balance Static Standing Balance Ability Fair Dynamic Standing Balance Ability Poor Balance Tests Sheridan Balance Test Sheridan Balance Test Score 1 Single Limb Standing Single Limb- Right 0 sec's Single Limb- Left 0 sec's Sheridan Balance Assessment Evaluation Sitting to Standing Ability Independent w/out Hands Unsupported Stance Supervision- 2 minutes Sitting Unsupported, Feet on Floor Safely- 2 minutes Standing to Sitting Ability Independent, Uncontrolled Transfer Ability Supervision, Verbal Cues Unsupported Stance- Eyes Closed Supervision, 10 seconds Unsupported Stance- Eyes Open Assist to attain,<15 secs Reaching Forward Standing Safely, 5 inches Pick- Up Object From Floor Requires Assistance Look Behind Shoulder - Standing Supervision w/Turning Turning 360 Degrees Requires Assistance Unsupported Stance, Alternating Feet on Assist to Prevent Fall Stair Unsupported Tandem Stance Balance Lost- Step/Stand Unilateral Leg Stance Unable,assist to not fall Total Score Sheridan Total Score (out of 56 points) 21 Sheridan Impairment Rating 60 to 79% Impaired (Score 12- 22) Jacqueline Fall Scale Copyright Permission Jacqueline COLBY, Jacqueline RM, Yosef SJ. Development of a scale to identify the fall- prone patient. Can J Aging 1989;8;366-7. Angel Phillips (2009). Preventing patient falls. (2nd ed). [place]: Fowler. PT-OP-E Functional Tests Start: 12/07/17 09:46 Freq: Status: Active Protocol: Document 12/07/17 10:39 LRN (Rec: 12/07/17 11:55 LRN [id number]) Functional Tests Five Times Sit to Stand Test Score 27 sec's Comments Norm for 80-89 yo's is 14.8 sec's Timed Up and Go (TUG) Score 31 PT-OP-G Mobility & Gait Start: 12/07/17 09:46 Freq: Status: Active Protocol: Document 12/07/17 10:39 LRN (Rec: 12/07/17 11:55 LRN [id number]) OP Mobility Evaluation Transfers Sit to Stand INdependent OP Gait Assessment Gait Gait Assistance Required: Independent Comments Gait Comments Decreased step length on the right. Increased trunk sway with gait and excessive lean to the right. Pt takes frequent standing rest stops due to fatigue. PT-OP-M Strength Start: 12/07/17 09:46 Freq: Status: Active Protocol: Document 12/07/17 10:39 LRN (Rec: 12/07/17 14:34 LRN [id number]) Trunk Strength Trunk Manual Muscle Testing Core Stabilization Pt not able to maintain a stable core with MMT of lower extremities. Comments Formal MMT deferred due to time constraints. Hip Strength Hip Manual Muscle Testing Right Flexion (L2) 5 Normal Left Flexion (L2) 5 Normal Knee Strength Knee Manual Muscle Testing Right Flexion (S2) 5 Normal Extension (L3) 3+ Fair+ Comments Pt had difficulty maintaining core stability. Left Flexion (S2) 5 Normal Extension (L3) 5 Normal Comments Pt had difficulty maintaining core stability. Ankle/Foot Strength Ankle and Foot Manual Muscle Testing Right Dorsiflexion (L4) 5 Normal Plantarflexion (S1) 5 Normal Left Dorsiflexion (L4) 5 Normal Plantarflexion (S1) 5 Normal PT-OP-Q Treatments Start: 12/07/17 09:46 Freq: Status: Active Protocol: Document 12/23/17 09:49 LRN (Rec: 12/23/17 10:06 LRN [id number]) Cardio Equipment Recumbent Elliptical (Biodex) Duration (Minutes) 5 Resistance 1 Seat Position 9 Recumbent Bicycle Duration (Minutes) 6 Resistance 3 Other assist on and off Gym Equipment Shuttle Recovery Bilateral Squats Details Pillow for head rest, rest periods Resistance 62 Reps/Time 10x3 Therapeutic Exercises Sitting Exercises 2 Sitting Exercise Name Marching Side bilateral Reps/Minutes 10x3 reps 1 Sitting Exercise Name Lean backs Resistance gravity Equipment Used Chair near wall, toes on wall Reps/Minutes 10x Comments lean back and hold 5 sec's Standing Exercises 3 Standing Exercise Name Toe/Heel raises Side bilateral Reps/Minutes 10x3 2 Standing Exercise Name wobble board with no HS: FWD/ SWD Reps/Minutes x 5 SH x 5 reps 1 Standing Exercise Name marching on foam with single hand support Equipment Used in parallel bars Reps/Minutes 2 laps Other Exercises Sit to Stand Equipment Used chair Reps/Minutes 10x Comments Used hands Neuro Re-Education Treatment Balance Activities 4 Details step out and back with single limb Surface firm Equipment in parallel bars Reps/Duration 4 x 5 reps each LE Comments balance improved with training , more difficulty stepping with right than left 3 Details side-stepping Surface firm Equipment in parallel bars Reps/Duration 4 laps Comments needs UE support for balance PT-OP-T Assessment and Plan Start: 12/07/17 09:46 Freq: Status: Active Protocol: Document 12/23/17 09:49 LRN (Rec: 12/23/17 10:06 LRN [id number]) Physical Therapy Assessment Impairments Impairments Activity Tolerance Balance Functional Activities Gait Strength Transfers Other Concerns Fall Risk Increased risk of falling. Patient reports falling 1-2 times daily. Age Related Concerns Diabetic, type II; Partial L knee replacement. 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 Barriers to Rehabilitation Age, Diabetes, pt not wanting to use assistive device for gait. Goals Three Impairment Pt lacks appropriate HEP. Short Term Goal (STG) Pt will be educated in an initial HEP of core, hip and balance ex's. STG Duration 02/14/18 Languages And Literature Instructor Goal (LTG) Pt will be independent in a HEP. LTG Duration 03/08/18 Two Impairment Decreased core strength. Senior Living Goal (LTG) Pt able to maintain core stability with use of LE's and report a decrease in frequency of falls. LTG Duration 03/08/18 1 Impairment Decreased balance per SHERIDAN score of 21/56 (>35 safe ambulation with AD). Languages And Literature Instructor Goal (LTG) Pt will improve SHERIDAN score to 35 and will demonstrate improved safety with gait ( able to turn with minimal loss of balance). LTG Duration 03/08/18 Assessment Summary Assessment Pt is unstable with gait and general weakness of the core. Pt not wanting to use assistive device for gait. Physical Therapy Plan Frequency and Duration Frequency of Treatment 2x/Week Plan of Care Start Date 12/07/17 Plan of Care End Date 03/08/18 Therapeutic Interventions Therapeutic Interventions Aquatic Therapy Balance Training Coordination Training Gait Training Home Exercise Program Neuromuscular Re-education Patient/Caregiver Education Self-Care/Home Management Therapeutic Activities Therapeutic Exercises Next Visit Focus/Plan Next Note Type Treatment Note Next Visit Plan Progress safety with static standing balance, anticipatory balance reactions, and progress to dynamic standing balance ex's.
--- NOTE | 2017-12-28 14:35 | PT.OTN ---
Current Diagnoses Unspecified abnormalities of gait and mobility (12/28/17) Repeated falls (12/28/17) Weakness (12/28/17) Physical Therapy Treatment Note PT-OP-A Visit Information Start: 12/07/17 09:46 Freq: Status: Active Protocol: Document 12/28/17 14:30 GGD (Rec: 12/28/17 17:07 GGD [id number]) Out-Patient Physical Therapy Visit Information Visit Information Visit Type Treatment Note Visit Start Time 14:30 Visit Stop Time 13:10 Total Visit Minutes 40 Visit Number 5 Number of STORE STOCK ASSOCIATE Visits 1 Evaluation Information Evaluation Date 12/07/17 PT-OP-B Current Condition Start: 12/07/17 09:46 Freq: Status: Active Protocol: Document 12/07/17 10:39 LRN (Rec: 12/07/17 11:55 LRN [id number]) Current Condition History of Current Condition Onset Date Started Falling 6 months ago, feeling weak after first fall 6 months ago. Current Complaints Weakness, falling daily. Dizzy with turning resulting in falls. History of Current Condition Pt states that after her first fall she began to feel weak and has suffered repeated falls. She reports falling 1- 2 times per day and has had 2 very big falls in the past 6 months. Last fall occured 2 months ago. First fall was due to turning to stop her dog from running out of the house . Second fall from reaching to support self when feeling a loss of balance and missed, causing a fall. She thinks she might have had a stroke because she can't remember phone numbers anymore. PT lives with daughter, adopted son and his sister. PMH: R Partial knee arthroplasty 2 yrs ago. Prior Treatments and Tests MRI, said she didn't have a concussion. Treatment Goals Patient/Caregiver Goals Pt goal is to be stronger ( ankle, toes, feet) to keep her from falling. 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 Current Functional Impairments (Reported) Functional Limitations- ADL's Difficulty with laundry and removing clothes from dryer, and is not able to fix meals as often. Can was single dishes if she has things to hang onto. Functional Limitations- Mobility/Gait Safer using a cane for gait but doesn't like to. 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 Therapy/Recovery Has a 15 yr old adopted son, daughter is taking care of him currently. Lives with daughter in one story home. Has 4 generations living together. Pt does not want to use a cane for gait. PT-OP-C Subjective Start: 12/07/17 09:46 Freq: Status: Active Protocol: Document 12/28/17 14:30 GGD (Rec: 12/28/17 17:07 GGD [email or web address]) OP-PT Subjective Patient Comments Patient Comments Pt states she gets dizzy when she falls or near falls. PT-OP-D Balance Start: 12/07/17 09:46 Freq: Status: Active Protocol: Document 12/07/17 10:39 LRN (Rec: 12/07/17 11:55 LRN [id number]) OP-PT Balance Assessment Sitting Balance Static Sitting Balance Ability Normal Dynamic Sitting Balance Ability Good Sitting Balance Comments Core weakness noted. Pt is slow to return to starting position and tends to lean backwards in static sitting. Standing Balance Static Standing Balance Ability Fair Dynamic Standing Balance Ability Poor Balance Tests Pruett Balance Test Pruett Balance Test Score 1 Single Limb Standing Single Limb- Right 0 sec's Single Limb- Left 0 sec's Pruett Balance Assessment Evaluation Sitting to Standing Ability Independent w/out Hands Unsupported Stance Supervision- 2 minutes Sitting Unsupported, Feet on Floor Safely- 2 minutes Standing to Sitting Ability Independent, Uncontrolled Transfer Ability Supervision, Verbal Cues Unsupported Stance- Eyes Closed Supervision, 10 seconds Unsupported Stance- Eyes Open Assist to attain,<15 secs Reaching Forward Standing Safely, 5 inches Pick- Up Object From Floor Requires Assistance Look Behind Shoulder - Standing Supervision w/Turning Turning 360 Degrees Requires Assistance Unsupported Stance, Alternating Feet on Assist to Prevent Fall Stair Unsupported Tandem Stance Balance Lost- Step/Stand Unilateral Leg Stance Unable,assist to not fall Total Score Pruett Total Score (out of 56 points) 21 Pruett Impairment Rating 60 to 79% Impaired (Score 12- 22) Jacqueline Fall Scale Copyright Permission Jacqueline CLOBY, Jacqueline RM, Yosef SJ. Development of a scale to identify the fall- prone patient. Can J Aging 1989;8;366-7. Angel Phillips (2009). Preventing patient falls. (2nd ed). [place]: Fowler. PT-OP-E Functional Tests Start: 12/07/17 09:46 Freq: Status: Active Protocol: Document 12/07/17 10:39 LRN (Rec: 12/07/17 11:55 LRN [id number]) Functional Tests Five Times Sit to Stand Test Score 27 sec's Comments Norm for 80-89 yo's is 14.8 sec's Timed Up and Go (TUG) Score 31 PT-OP-G Mobility & Gait Start: 12/07/17 09:46 Freq: Status: Active Protocol: Document 12/07/17 10:39 LRN (Rec: 12/07/17 11:55 LRN [id number]) OP Mobility Evaluation Transfers Sit to Stand INdependent OP Gait Assessment Gait Gait Assistance Required: Independent Comments Gait Comments Decreased step length on the right. Increased trunk sway with gait and excessive lean to the right. Pt takes frequent standing rest stops due to fatigue. PT-OP-M Strength Start: 12/07/17 09:46 Freq: Status: Active Protocol: Document 12/07/17 10:39 LRN (Rec: 12/07/17 14:34 LRN [id number]) Trunk Strength Trunk Manual Muscle Testing Core Stabilization Pt not able to maintain a stable core with MMT of lower extremities. Comments Formal MMT deferred due to time constraints. Hip Strength Hip Manual Muscle Testing Right Flexion (L2) 5 Normal Left Flexion (L2) 5 Normal Knee Strength Knee Manual Muscle Testing Right Flexion (S2) 5 Normal Extension (L3) 3+ Fair+ Comments Pt had difficulty maintaining core stability. Left Flexion (S2) 5 Normal Extension (L3) 5 Normal Comments Pt had difficulty maintaining core stability. Ankle/Foot Strength Ankle and Foot Manual Muscle Testing Right Dorsiflexion (L4) 5 Normal Plantarflexion (S1) 5 Normal Left Dorsiflexion (L4) 5 Normal Plantarflexion (S1) 5 Normal PT-OP-Q Treatments Start: 12/07/17 09:46 Freq: Status: Active Protocol: Document 12/28/17 14:30 GGD (Rec: 12/28/17 17:07 GGD [email or web address]) Cardio Equipment Recumbent Elliptical (Biodex) Duration (Minutes) 6 Resistance 1 Seat Position 9 Gym Equipment Shuttle Recovery Bilateral Squats Details Pillow for head rest, rest periods Resistance 62 Reps/Time 15x2 Therapeutic Exercises Standing Exercises 3 Standing Exercise Name Toe/Heel raises Side bilateral Reps/Minutes 10x3 2 Standing Exercise Name wobble board with no HS: FWD/ SWD Reps/Minutes x 5 SH x 5 reps 1 Standing Exercise Name marching on foam with single hand support Equipment Used in parallel bars Other Exercises Sit to Stand Equipment Used chair Reps/Minutes 10x Comments Used hands Neuro Re-Education Treatment Balance Activities 5 Details Tandem stance 4 Details step out and back with single limb Surface firm Equipment in parallel bars Reps/Duration 4 x 5 reps each LE Comments balance improved with training , more difficulty stepping with right than left 3 Details side-stepping Surface firm Equipment in parallel bars Reps/Duration 4 laps Comments needs UE support for balance 1 Details standing balance without UE support- EO, EC, head motions Surface firm Equipment in parallel bars Comments feet together PT-OP-T Assessment and Plan Start: 12/07/17 09:46 Freq: Status: Active Protocol: Document 12/28/17 14:30 GGD (Rec: 12/28/17 17:07 GGD [email or web address]) Physical Therapy Assessment Assessment Summary Assessment Pt progressing with strengthening. She still uses UE for support with balance. She is able to balance with cuing and short time without UE. She does LOB with gait during turns. Physical Therapy Plan Next Visit Focus/Plan Next Note Type Treatment Note Next Visit Plan Progress balance, gait and dizziness.
--- NOTE | 2018-01-11 15:41 | PT.OTN ---
Current Diagnoses Unspecified abnormalities of gait and mobility (01/11/18) Repeated falls (01/11/18) Weakness (01/11/18) Physical Therapy Treatment Note PT-OP-A Visit Information Start: 12/07/17 09:46 Freq: Status: Active Protocol: Document 01/11/18 13:45 DCW (Rec: 01/11/18 15:41 DCW [id number]) Out-Patient Physical Therapy Visit Information Visit Information Visit Type Progress Note Visit Start Time 13:45 Visit Stop Time 14:25 Total Visit Minutes 40 Visit Number 6 Number of FEATHER WASHER Visits 0 Evaluation Information Evaluation Date 12/07/17 PT-OP-B Current Condition Start: 12/07/17 09:46 Freq: Status: Active Protocol: Document 12/07/17 10:39 LRN (Rec: 12/07/17 11:55 LRN [id number]) Current Condition History of Current Condition Onset Date Started Falling 6 months ago, feeling weak after first fall 6 months ago. Current Complaints Weakness, falling daily. Dizzy with turning resulting in falls. History of Current Condition Pt states that after her first fall she began to feel weak and has suffered repeated falls. She reports falling 1- 2 times per day and has had 2 very big falls in the past 6 months. Last fall occured 2 months ago. First fall was due to turning to stop her dog from running out of the house . Second fall from reaching to support self when feeling a loss of balance and missed, causing a fall. She thinks she might have had a stroke because she can't remember phone numbers anymore. PT lives with daughter, adopted son and his sister. PMH: R Partial knee arthroplasty 2 yrs ago. Prior Treatments and Tests MRI, said she didn't have a concussion. Treatment Goals Patient/Caregiver Goals Pt goal is to be stronger ( ankle, toes, feet) to keep her from falling. Prior Functional Status Baseline Function- ADL's Independent Baseline Function- Mobility Independent Baseline Function- Other Able to fill family mediator, do laundry, and remove clothes from dryer, fix meals, walk without an assistive device, and drive. Current Functional Impairments (Reported) Functional Limitations- ADL's Difficulty with laundry and removing clothes from dryer, and is not able to fix meals as often. Can was single dishes if she has things to hang onto. Functional Limitations- Mobility/Gait Safer using a cane for gait but doesn't like to. 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 Lives with daughter in one story home. Has 4 generations living together. Pt does not want to use a cane for gait. PT-OP-C Subjective Start: 12/07/17 09:46 Freq: Status: Active Protocol: Document 01/11/18 13:45 DCW (Rec: 01/11/18 15:41 DCW [id number]) OP-PT Subjective Patient Comments Patient Comments PT notes she has been getting dizzy since her fall in April, where she fell and hit her head on a box full of wood. Pt describes her dizziness as an imbalance when turning her head, which has led to a few falls. Pt notes symptoms last until I hit the ground. PT-OP-D Balance Start: 12/07/17 09:46 Freq: Status: Active Protocol: Document 12/07/17 10:39 LRN (Rec: 12/07/17 11:55 LRN [id number]) OP-PT Balance Assessment Sitting Balance Static Sitting Balance Ability Normal Dynamic Sitting Balance Ability Good Sitting Balance Comments Core weakness noted. Pt is slow to return to starting position and tends to lean backwards in static sitting. Standing Balance Static Standing Balance Ability Fair Dynamic Standing Balance Ability Poor Balance Tests Sheridan Balance Test Sheridan Balance Test Score 1 Single Limb Standing Single Limb- Right 0 sec's Single Limb- Left 0 sec's Sheridan Balance Assessment Evaluation Sitting to Standing Ability Independent w/out Hands Unsupported Stance Supervision- 2 minutes Sitting Unsupported, Feet on Floor Safely- 2 minutes Standing to Sitting Ability Independent, Uncontrolled Transfer Ability Supervision, Verbal Cues Unsupported Stance- Eyes Closed Supervision, 10 seconds Unsupported Stance- Eyes Open Assist to attain,<15 secs Reaching Forward Standing Safely, 5 inches Pick- Up Object From Floor Requires Assistance Look Behind Shoulder - Standing Supervision w/Turning Turning 360 Degrees Requires Assistance Unsupported Stance, Alternating Feet on Assist to Prevent Fall Stair Unsupported Tandem Stance Balance Lost- Step/Stand Unilateral Leg Stance Unable,assist to not fall Total Score [place]idan Total Score (out of 56 points) 21 [place]idan Impairment Rating 60 to 79% Impaired (Score 12- 22) Phillips Fall Scale Copyright Permission Jacqueline COLBY, Jacqueline RM, Yosef SJ. Development of a scale to identify the fall- prone patient. Can J Aging 1989;8;366-7. Angel Phillips (2009). Preventing patient falls. (2nd ed). [place]: Fowler. PT-OP-E Functional Tests Start: 12/07/17 09:46 Freq: Status: Active Protocol: Document 12/07/17 10:39 LRN (Rec: 12/07/17 11:55 LRN [id number]) Functional Tests Five Times Sit to Stand Test Score 27 sec's Comments Norm for 80-89 yo's is 14.8 sec's Timed Up and Go (TUG) Score 31 PT-OP-G Mobility & Gait Start: 12/07/17 09:46 Freq: Status: Active Protocol: Document 12/07/17 10:39 LRN (Rec: 12/07/17 11:55 LRN [id number]) OP Mobility Evaluation Transfers Sit to Stand INdependent OP Gait Assessment Gait Gait Assistance Required: Independent Comments Gait Comments Decreased step length on the right. Increased trunk sway with gait and excessive lean to the right. Pt takes frequent standing rest stops due to fatigue. PT-OP-M Strength Start: 12/07/17 09:46 Freq: Status: Active Protocol: Document 12/07/17 10:39 LRN (Rec: 12/07/17 14:34 LRN [id number]) Trunk Strength Trunk Manual Muscle Testing Core Stabilization Pt not able to maintain a stable core with MMT of lower extremities. Comments Formal MMT deferred due to time constraints. Hip Strength Hip Manual Muscle Testing Right Flexion (L2) 5 Normal Left Flexion (L2) 5 Normal Knee Strength Knee Manual Muscle Testing Right Flexion (S2) 5 Normal Extension (L3) 3+ Fair+ Comments Pt had difficulty maintaining core stability. Left Flexion (S2) 5 Normal Extension (L3) 5 Normal Comments Pt had difficulty maintaining core stability. Ankle/Foot Strength Ankle and Foot Manual Muscle Testing Right Dorsiflexion (L4) 5 Normal Plantarflexion (S1) 5 Normal Left Dorsiflexion (L4) 5 Normal Plantarflexion (S1) 5 Normal PT-OP-O Vestibular Start: 12/07/17 09:46 Freq: Status: Active Protocol: Document 01/11/18 13:45 DCW (Rec: 01/11/18 15:41 DCW [id number]) Vestibular Assessment Screening Tests Vestibular Artery Screen Negative Auditory Tests Kc Test Negative Rinne Test Negative Air Conduction Results Equal Visual Testing Smooth Pursuits Horizontal Negative Smooth Pursuits Vertical Negative Saccades Horizontal Negative Gaze Evoked Nystagmus With Fixation Negative Gaze Evoked Nystagmus Without Fixation Negative Heave Test Negative Thrust Head Negative DVA (Line Degradation) 4 Head Shake Negative Positional Testing [place]-Hallpike Negative Left Negative Right Rolling Test Negative Left Negative Right PT-OP-Q Treatments Start: 12/07/17 09:46 Freq: Status: Active Protocol: Document 01/11/18 13:45 DCW (Rec: 01/11/18 15:41 DCW [id number]) Manual Therapy Treatment Other Other Manual Treatments Vestibular assessment PT-OP-T Assessment and Plan Start: 12/07/17 09:46 Freq: Status: Active Protocol: Document 01/11/18 13:45 DCW (Rec: 01/11/18 15:41 DCW [id number]) Physical Therapy Assessment Impairments Impairments Activity Tolerance Balance Functional Activities Gait Strength Transfers Goals Three Impairment Pt lacks appropriate HEP. Short Term Goal (STG) Pt will be educated in an initial HEP of core, hip and balance ex's. STG Duration 02/14/18 Expressive Music Therapist Goal (LTG) Pt will be independent in a HEP. LTG Duration 03/08/18 Two Impairment Decreased core strength. Expressive Music Therapist Goal (LTG) Pt able to maintain core stability with use of LE's and report a decrease in frequency of falls. LTG Duration 03/08/18 1 Impairment Decreased balance per SHERIDAN score of 21/56 (>35 safe ambulation with AD). Half-Way Goal (LTG) Pt will improve SHERIDAN score to 35 and will demonstrate improved safety with gait ( able to turn with minimal loss of balance). LTG Duration 03/08/18 Assessment Summary Assessment Pt is currently being seen for balance issues, and her primary therapist requested a vestibular assessment. Pt vestibular evaluation was entirely negative, with the exception on a positive DVA, which does not say much by itself. 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 Pt was instructed to track her dizziness, and report back at a later time. Pt should continue her current physical therapy POC, and undergo another vestibular assessment as needed. Physical Therapy Plan Frequency and Duration Frequency of Treatment 2x/Week Plan of Care Start Date 12/07/17 Plan of Care End Date 03/08/18 Therapeutic Interventions Therapeutic Interventions Aquatic Therapy Balance Training Coordination Training Gait Training Home Exercise Program Neuromuscular Re-education Patient/Caregiver Education Self-Care/Home Management Therapeutic Activities Therapeutic Exercises Next Visit Focus/Plan Next Note Type Treatment Note Next Visit Plan Progress safety with static standing balance, anticipatory balance reactions, and progress to dynamic standing balance ex's.
--- NOTE | 2018-01-11 15:43 | PT.OTN ---
Current Diagnoses Unspecified abnormalities of gait and mobility (01/11/18) Repeated falls (01/11/18) Weakness (01/11/18) Physical Therapy Treatment Note PT-OP-A Visit Information Start: 12/07/17 09:46 Freq: Status: Active Protocol: Document 01/11/18 13:45 DCW (Rec: 01/11/18 15:41 DCW [id number]) Out-Patient Physical Therapy Visit Information Visit Information Visit Type Progress Note Visit Start Time 13:45 Visit Stop Time 14:25 Total Visit Minutes 40 Visit Number 6 Number of WOODEN BARREL MECHANIC Visits 0 Evaluation Information Evaluation Date 12/07/17 PT-OP-B Current Condition Start: 12/07/17 09:46 Freq: Status: Active Protocol: Document 12/07/17 10:39 LRN (Rec: 12/07/17 11:55 LRN [id number]) Current Condition History of Current Condition Onset Date Started Falling 6 months ago, feeling weak after first fall 6 months ago. Current Complaints Weakness, falling daily. Dizzy with turning resulting in falls. History of Current Condition Pt states that after her first fall she began to feel weak and has suffered repeated falls. She reports falling 1- 2 times per day and has had 2 very big falls in the past 6 months. Last fall occured 2 months ago. First fall was due to turning to stop her dog from running out of the house . Second fall from reaching to support self when feeling a loss of balance and missed, causing a fall. She thinks she might have had a stroke because she can't remember phone numbers anymore. PT lives with daughter, adopted son and his sister. PMH: R Partial knee arthroplasty 2 yrs ago. Prior Treatments and Tests MRI, said she didn't have a concussion. Treatment Goals Patient/Caregiver Goals Pt goal is to be stronger ( ankle, toes, feet) to keep her from falling. Prior Functional Status Baseline Function- ADL's Independent Baseline Function- Mobility Independent Baseline Function- Other Able to fill manager emergency, do laundry, and remove clothes from dryer, fix meals, walk without an assistive device, and drive. Current Functional Impairments (Reported) Functional Limitations- ADL's Difficulty with laundry and removing clothes from dryer, and is not able to fix meals as often. Can was single dishes if she has things to hang onto. Functional Limitations- Mobility/Gait Safer using a cane for gait but doesn't like to. 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 Lives with daughter in one story home. Has 4 generations living together. Pt does not want to use a cane for gait. PT-OP-C Subjective Start: 12/07/17 09:46 Freq: Status: Active Protocol: Document 01/11/18 13:45 DCW (Rec: 01/11/18 15:41 DCW [id number]) OP-PT Subjective Patient Comments Patient Comments PT notes she has been getting dizzy since her fall in April, where she fell and hit her head on a box full of wood. Pt describes her dizziness as an imbalance when turning her head, which has led to a few falls. Pt notes symptoms last until I hit the ground. PT-OP-D Balance Start: 12/07/17 09:46 Freq: Status: Active Protocol: Document 12/07/17 10:39 LRN (Rec: 12/07/17 11:55 LRN [id number]) OP-PT Balance Assessment Sitting Balance Static Sitting Balance Ability Normal Dynamic Sitting Balance Ability Good Sitting Balance Comments Core weakness noted. Pt is slow to return to starting position and tends to lean backwards in static sitting. Standing Balance Static Standing Balance Ability Fair Dynamic Standing Balance Ability Poor Balance Tests Sheridan Balance Test Sheridan Balance Test Score 1 Single Limb Standing Single Limb- Right 0 sec's Single Limb- Left 0 sec's Sheridan Balance Assessment Evaluation Sitting to Standing Ability Independent w/out Hands Unsupported Stance Supervision- 2 minutes Sitting Unsupported, Feet on Floor Safely- 2 minutes Standing to Sitting Ability Independent, Uncontrolled Transfer Ability Supervision, Verbal Cues Unsupported Stance- Eyes Closed Supervision, 10 seconds Unsupported Stance- Eyes Open Assist to attain,<15 secs Reaching Forward Standing Safely, 5 inches Pick- Up Object From Floor Requires Assistance Look Behind Shoulder - Standing Supervision w/Turning Turning 360 Degrees Requires Assistance Unsupported Stance, Alternating Feet on Assist to Prevent Fall Stair Unsupported Tandem Stance Balance Lost- Step/Stand Unilateral Leg Stance Unable,assist to not fall Total Score Sheridan Total Score (out of 56 points) 21 Sheridan Impairment Rating 60 to 79% Impaired (Score 12- 22) Phillips Fall Scale Copyright Permission Jacqueline COLBY, Jacqueline RM, Yosef SJ. Development of a scale to identify the fall- prone patient. Can J Aging 1989;8;366-7. Angel Phillips (2009). Preventing patient falls. (2nd ed). [place]: Fowler. PT-OP-E Functional Tests Start: 12/07/17 09:46 Freq: Status: Active Protocol: Document 12/07/17 10:39 LRN (Rec: 12/07/17 11:55 LRN [id number]) Functional Tests Five Times Sit to Stand Test Score 27 sec's Comments Norm for 80-89 yo's is 14.8 sec's Timed Up and Go (TUG) Score 31 PT-OP-G Mobility & Gait Start: 12/07/17 09:46 Freq: Status: Active Protocol: Document 12/07/17 10:39 LRN (Rec: 12/07/17 11:55 LRN [id number]) OP Mobility Evaluation Transfers Sit to Stand INdependent OP Gait Assessment Gait Gait Assistance Required: Independent Comments Gait Comments Decreased step length on the right. Increased trunk sway with gait and excessive lean to the right. Pt takes frequent standing rest stops due to fatigue. PT-OP-M Strength Start: 12/07/17 09:46 Freq: Status: Active Protocol: Document 12/07/17 10:39 LRN (Rec: 12/07/17 14:34 LRN [id number]) Trunk Strength Trunk Manual Muscle Testing Core Stabilization Pt not able to maintain a stable core with MMT of lower extremities. Comments Formal MMT deferred due to time constraints. Hip Strength Hip Manual Muscle Testing Right Flexion (L2) 5 Normal Left Flexion (L2) 5 Normal Knee Strength Knee Manual Muscle Testing Right Flexion (S2) 5 Normal Extension (L3) 3+ Fair+ Comments Pt had difficulty maintaining core stability. Left Flexion (S2) 5 Normal Extension (L3) 5 Normal Comments Pt had difficulty maintaining core stability. Ankle/Foot Strength Ankle and Foot Manual Muscle Testing Right Dorsiflexion (L4) 5 Normal Plantarflexion (S1) 5 Normal Left Dorsiflexion (L4) 5 Normal Plantarflexion (S1) 5 Normal PT-OP-O Vestibular Start: 12/07/17 09:46 Freq: Status: Active Protocol: Document 01/11/18 13:45 DCW (Rec: 01/11/18 15:41 DCW [id number]) Vestibular Assessment Screening Tests Vestibular Artery Screen Negative Auditory Tests Kc Test Negative Rinne Test Negative Air Conduction Results Equal Visual Testing Smooth Pursuits Horizontal Negative Smooth Pursuits Vertical Negative Saccades Horizontal Negative Gaze Evoked Nystagmus With Fixation Negative Gaze Evoked Nystagmus Without Fixation Negative Heave Test Negative Thrust Head Negative DVA (Line Degradation) 4 Head Shake Negative Positional Testing [place]-Hallpike Negative Left Negative Right Rolling Test Negative Left Negative Right PT-OP-Q Treatments Start: 12/07/17 09:46 Freq: Status: Active Protocol: Document 01/11/18 13:45 DCW (Rec: 01/11/18 15:41 DCW [id number]) Manual Therapy Treatment Other Other Manual Treatments Vestibular assessment PT-OP-T Assessment and Plan Start: 12/07/17 09:46 Freq: Status: Active Protocol: Document 01/11/18 13:45 DCW (Rec: 01/11/18 15:41 DCW [id number]) Physical Therapy Assessment Impairments Impairments Activity Tolerance Balance Functional Activities Gait Strength Transfers Goals Three Impairment Pt lacks appropriate HEP. Short Term Goal (STG) Pt will be educated in an initial HEP of core, hip and balance ex's. STG Duration 02/14/18 Health Care Facility Administrator Goal (LTG) Pt will be independent in a HEP. LTG Duration 03/08/18 Two Impairment Decreased core strength. Health Care Facility Administrator Goal (LTG) Pt able to maintain core stability with use of LE's and report a decrease in frequency of falls. LTG Duration 03/08/18 1 Impairment Decreased balance per SHERIDAN score of 21/56 (>35 safe ambulation with AD). Mcfp Goal (LTG) Pt will improve SHERIDAN score to 35 and will demonstrate improved safety with gait ( able to turn with minimal loss of balance). LTG Duration 03/08/18 Assessment Summary Assessment Pt is currently being seen for balance issues, and her primary therapist requested a vestibular assessment. Pt vestibular evaluation was entirely negative, with the exception on a positive DVA, which does not say much by itself. 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 Pt was instructed to track her dizziness, and report back at a later time. Pt should continue her current physical therapy POC, and undergo another vestibular assessment as needed. Physical Therapy Plan Frequency and Duration Frequency of Treatment 2x/Week Duration of Treatment two months Plan of Care Start Date 01/11/18 Plan of Care End Date 03/13/18 Therapeutic Interventions Therapeutic Interventions Aquatic Therapy Balance Training Coordination Training Gait Training Home Exercise Program Neuromuscular Re-education Patient/Caregiver Education Self-Care/Home Management Therapeutic Activities Therapeutic Exercises Next Visit Focus/Plan Next Note Type Treatment Note Next Visit Plan Progress safety with static standing balance, anticipatory balance reactions, and progress to dynamic standing balance ex's.
--- NOTE | 2018-01-11 15:43 | PT.OPPOC ---
Current Diagnoses Unspecified abnormalities of gait and mobility (01/11/18) Repeated falls (01/11/18) Weakness (01/11/18) Provider Visit Care Team Role Provider Type Sarah De Dios DO Family Provider Physician Specialty: [facility] Address: [address] [place] [address] Email: [email or web address] Pierre Chung MD Attending Provider Physician Primary Care Provider Specialty: [facility] Address: [address] [place] [address], [id number] Email: [email or web address] Plan Of Care PT-OP-T Assessment and Plan Start: 12/07/17 09:46 Freq: Status: Active Protocol: Document 01/11/18 13:45 DCW (Rec: 01/11/18 15:41 DCW [id number]) Physical Therapy Assessment Impairments Impairments Activity Tolerance Balance Functional Activities Gait Strength Transfers Goals Three Impairment Pt lacks appropriate HEP. Short Term Goal (STG) Pt will be educated in an initial HEP of core, hip and balance ex's. STG Duration 02/14/18 Alf Goal (LTG) Pt will be independent in a HEP. LTG Duration 03/08/18 Two Impairment Decreased core strength. Alf Goal (LTG) Pt able to maintain core stability with use of LE's and report a decrease in frequency of falls. LTG Duration 03/08/18 1 Impairment Decreased balance per SHERIDAN score of 21/56 (>35 safe ambulation with AD). Team Physician Goal (LTG) Pt will improve SHERIDAN score to 35 and will demonstrate improved safety with gait ( able to turn with minimal loss of balance). LTG Duration 03/08/18 Assessment Summary Assessment Pt is currently being seen for balance issues, and her primary therapist requested a vestibular assessment. Pt vestibular evaluation was entirely negative, with the exception on a positive DVA, which does not say much by itself. 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 Pt was instructed to track her dizziness, and report back at a later time. Pt should continue her current physical therapy POC, and undergo another vestibular assessment as needed. Physical Therapy Plan Frequency and Duration Frequency of Treatment 2x/Week Duration of Treatment two months Plan of Care Start Date 01/11/18 Plan of Care End Date 03/13/18 Therapeutic Interventions Therapeutic Interventions Aquatic Therapy Balance Training Coordination Training Gait Training Home Exercise Program Neuromuscular Re-education Patient/Caregiver Education Self-Care/Home Management Therapeutic Activities Therapeutic Exercises Next Visit Focus/Plan Next Note Type Treatment Note Next Visit Plan Progress safety with static standing balance, anticipatory balance reactions, and progress to dynamic standing balance ex's. Plan of Care Dates Plan of Care Start Date 01/11/18 Plan of Care End Date 03/13/18 Please Sign and Return: I have reviewed this Plan of Care and certify that the skilled therapy services above are required to meet the patient?s needs. Physician Signature Date Printed Name and Credentials Clinical Instructor Signature Printed Name and Credentials
--- NOTE | 2018-01-13 12:55 | PT.OTN ---
Current Diagnoses Unspecified abnormalities of gait and mobility (01/13/18) Repeated falls (01/13/18) Weakness (01/13/18) Physical Therapy Treatment Note PT-OP-A Visit Information Start: 12/07/17 09:46 Freq: Status: Active Protocol: Document 01/13/18 11:19 LRN (Rec: 01/13/18 12:04 LRN [id number]) Out-Patient Physical Therapy Visit Information Visit Information Visit Type Treatment Note Visit Start Time 11:19 Visit Stop Time 12:00 Total Visit Minutes 41 Visit Number 7 Number of OFFICE MACHINE SERVICER APPRENTICE Visits 0 Evaluation Information Evaluation Date 12/07/17 PT-OP-B Current Condition Start: 12/07/17 09:46 Freq: Status: Active Protocol: Document 12/07/17 10:39 LRN (Rec: 12/07/17 11:55 LRN [id number]) Current Condition History of Current Condition Onset Date Started Falling 6 months ago, feeling weak after first fall 6 months ago. Current Complaints Weakness, falling daily. Dizzy with turning resulting in falls. History of Current Condition Pt states that after her first fall she began to feel weak and has suffered repeated falls. She reports falling 1- 2 times per day and has had 2 very big falls in the past 6 months. Last fall occured 2 months ago. First fall was due to turning to stop her dog from running out of the house . Second fall from reaching to support self when feeling a loss of balance and missed, causing a fall. She thinks she might have had a stroke because she can't remember phone numbers anymore. PT lives with daughter, adopted son and his sister. PMH: R Partial knee arthroplasty 2 yrs ago. Prior Treatments and Tests MRI, said she didn't have a concussion. Treatment Goals Patient/Caregiver Goals Pt goal is to be stronger ( ankle, toes, feet) to keep her from falling. Prior Functional Status Baseline Function- ADL's Independent Baseline Function- Mobility Independent Baseline Function- Other Able to fill food porter, do laundry, and remove clothes from dryer, fix meals, walk without an assistive device, and drive. Current Functional Impairments (Reported) Functional Limitations- ADL's Difficulty with laundry and removing clothes from dryer, and is not able to fix meals as often. Can was single dishes if she has things to hang onto. Functional Limitations- Mobility/Gait Safer using a cane for gait but doesn't like to. 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 Lives with daughter in one story home. Has 4 generations living together. Pt does not want to use a cane for gait. PT-OP-C Subjective Start: 12/07/17 09:46 Freq: Status: Active Protocol: Document 01/13/18 11:19 LRN (Rec: 01/13/18 12:40 LRN [id number]) OP-PT Subjective Patient Comments Patient Comments Doesn't think she needs a cane because her balance has been better. Patient Reported Progress Improving PT-OP-D Balance Start: 12/07/17 09:46 Freq: Status: Active Protocol: Document 12/07/17 10:39 LRN (Rec: 12/07/17 11:55 LRN [id number]) OP-PT Balance Assessment Sitting Balance Static Sitting Balance Ability Normal Dynamic Sitting Balance Ability Good Sitting Balance Comments Core weakness noted. Pt is slow to return to starting position and tends to lean backwards in static sitting. Standing Balance Static Standing Balance Ability Fair Dynamic Standing Balance Ability Poor Balance Tests Pruett Balance Test P[place]ett Balance Test Score 1 Single Limb Standing Single Limb- Right 0 sec's Single Limb- Left 0 sec's [place] Balance Assessment Evaluation Sitting to Standing Ability Independent w/out Hands Unsupported Stance Supervision- 2 minutes Sitting Unsupported, Feet on Floor Safely- 2 minutes Standing to Sitting Ability Independent, Uncontrolled Transfer Ability Supervision, Verbal Cues Unsupported Stance- Eyes Closed Supervision, 10 seconds Unsupported Stance- Eyes Open Assist to attain,<15 secs Reaching Forward Standing Safely, 5 inches Pick- Up Object From Floor Requires Assistance Look Behind Shoulder - Standing Supervision w/Turning Turning 360 Degrees Requires Assistance Unsupported Stance, Alternating Feet on Assist to Prevent Fall Stair Unsupported Tandem Stance Balance Lost- Step/Stand Unilateral Leg Stance Unable,assist to not fall Total Score [place] Total Score (out of 56 points) 21 [place] Impairment Rating 60 to 79% Impaired (Score 12- 22) Jacqueline Fall Scale Copyright Permission Jacqueline COLBY, Jacqueline RM, Yosef SJ. Development of a scale to identify the fall- prone patient. Can J Aging 1989;8;366-7. Angel Phillips (2009). Preventing patient falls. (2nd ed). [place]: Fowler. PT-OP-E Functional Tests Start: 12/07/17 09:46 Freq: Status: Active Protocol: Document 12/07/17 10:39 LRN (Rec: 12/07/17 11:55 LRN [id number]) Functional Tests Five Times Sit to Stand Test Score 27 sec's Comments Norm for 80-89 yo's is 14.8 sec's Timed Up and Go (TUG) Score 31 PT-OP-G Mobility & Gait Start: 12/07/17 09:46 Freq: Status: Active Protocol: Document 12/07/17 10:39 LRN (Rec: 12/07/17 11:55 LRN [id number]) OP Mobility Evaluation Transfers Sit to Stand INdependent OP Gait Assessment Gait Gait Assistance Required: Independent Comments Gait Comments Decreased step length on the right. Increased trunk sway with gait and excessive lean to the right. Pt takes frequent standing rest stops due to fatigue. PT-OP-M Strength Start: 12/07/17 09:46 Freq: Status: Active Protocol: Document 12/07/17 10:39 LRN (Rec: 12/07/17 14:34 LRN [id number]) Trunk Strength Trunk Manual Muscle Testing Core Stabilization Pt not able to maintain a stable core with MMT of lower extremities. Comments Formal MMT deferred due to time constraints. Hip Strength Hip Manual Muscle Testing Right Flexion (L2) 5 Normal Left Flexion (L2) 5 Normal Knee Strength Knee Manual Muscle Testing Right Flexion (S2) 5 Normal Extension (L3) 3+ Fair+ Comments Pt had difficulty maintaining core stability. Left Flexion (S2) 5 Normal Extension (L3) 5 Normal Comments Pt had difficulty maintaining core stability. Ankle/Foot Strength Ankle and Foot Manual Muscle Testing Right Dorsiflexion (L4) 5 Normal Plantarflexion (S1) 5 Normal Left Dorsiflexion (L4) 5 Normal Plantarflexion (S1) 5 Normal PT-OP-O Vestibular Start: 12/07/17 09:46 Freq: Status: Active Protocol: Document 01/11/18 13:45 DCW (Rec: 01/11/18 15:41 DCW [id number]) Vestibular Assessment Screening Tests Vestibular Artery Screen Negative Auditory Tests Kc Test Negative Rinne Test Negative Air Conduction Results Equal Visual Testing Smooth Pursuits Horizontal Negative Smooth Pursuits Vertical Negative Saccades Horizontal Negative Gaze Evoked Nystagmus With Fixation Negative Gaze Evoked Nystagmus Without Fixation Negative Heave Test Negative Thrust Head Negative DVA (Line Degradation) 4 Head Shake Negative Positional Testing [place]-Hallpike Negative Left Negative Right Rolling Test Negative Left Negative Right PT-OP-Q Treatments Start: 12/07/17 09:46 Freq: Status: Active Protocol: Document 01/13/18 11:19 LRN (Rec: 01/13/18 12:04 LRN [id number]) Cardio Equipment Recumbent Stepper (Sci-Fit) Duration (Minutes) 7 Resistance 1 Seat Position 12 Gym Equipment Shuttle Recovery Bilateral Squats Details Pillow for head rest, rest periods Resistance 62 Reps/Time 15x3 Therapeutic Exercises Sitting Exercises 2 Sitting Exercise Name Marching Side bilateral Reps/Minutes 10x3 reps 1 Sitting Exercise Name Lean backs Resistance gravity Equipment Used Chair near wall, toes on wall Reps/Minutes 10x Comments lean back and hold 5 sec's Standing Exercises Trunk rotation Standing Exercise Name Trunk rotation Side bilateral Resistance L 2 T-Band Reps/Minutes 10x 3 Standing Exercise Name Toe/Heel raises Side bilateral Reps/Minutes 10x3 2 Standing Exercise Name wobble board with no HS: FWD Reps/Minutes 10' 1 Standing Exercise Name marching on foam with single hand support Equipment Used Bar Comments Holding and hovering with one hand Neuro Re-Education Treatment Balance Activities 4 Details Balance training Surface Wobble board Equipment in parallel bars Comments Teaching hip and knee strategy . PT-OP-T Assessment and Plan Start: 12/07/17 09:46 Freq: Status: Active Protocol: Document 01/13/18 11:19 LRN (Rec: 01/13/18 12:04 LRN [id number]) Physical Therapy Assessment Assessment Summary Assessment Pt showed poor balance with TUG test and and pt is at a risk of falling (vestibular assessment previously does not point to vestibular involvement); therefore she needs an assistive device for gait safety. Weak core. Physical Therapy Plan Frequency and Duration Frequency of Treatment 2x/Week Duration of Treatment two months Plan of Care Start Date 01/11/18 Plan of Care End Date 03/13/18 Next Visit Focus/Plan Next Note Type Treatment Note Next Visit Plan Progress safety with static standing balance, anticipatory balance reactions, and progress to dynamic standing balance ex's. Strengthen core .
--- NOTE | 2018-01-13 12:59 | PT.OTN ---
Current Diagnoses Unspecified abnormalities of gait and mobility (01/13/18) Repeated falls (01/13/18) Weakness (01/13/18) Physical Therapy Treatment Note PT-OP-A Visit Information Start: 12/07/17 09:46 Freq: Status: Active Protocol: Document 01/13/18 11:19 LRN (Rec: 01/13/18 12:04 LRN [id number]) Out-Patient Physical Therapy Visit Information Visit Information Visit Type Treatment Note Visit Start Time 11:19 Visit Stop Time 12:00 Total Visit Minutes 41 Visit Number 7 Number of LACE TEARING SUPERVISOR Visits 0 Evaluation Information Evaluation Date 12/07/17 PT-OP-B Current Condition Start: 12/07/17 09:46 Freq: Status: Active Protocol: Document 12/07/17 10:39 LRN (Rec: 12/07/17 11:55 LRN [id number]) Current Condition History of Current Condition Onset Date Started Falling 6 months ago, feeling weak after first fall 6 months ago. Current Complaints Weakness, falling daily. Dizzy with turning resulting in falls. History of Current Condition Pt states that after her first fall she began to feel weak and has suffered repeated falls. She reports falling 1- 2 times per day and has had 2 very big falls in the past 6 months. Last fall occured 2 months ago. First fall was due to turning to stop her dog from running out of the house . Second fall from reaching to support self when feeling a loss of balance and missed, causing a fall. She thinks she might have had a stroke because she can't remember phone numbers anymore. PT lives with daughter, adopted son and his sister. PMH: R Partial knee arthroplasty 2 yrs ago. Prior Treatments and Tests MRI, said she didn't have a concussion. Treatment Goals Patient/Caregiver Goals Pt goal is to be stronger ( ankle, toes, feet) to keep her from falling. Prior Functional Status Baseline Function- ADL's Independent Baseline Function- Mobility Independent Baseline Function- Other Able to fill radio equipment installer, do laundry, and remove clothes from dryer, fix meals, walk without an assistive device, and drive. Current Functional Impairments (Reported) Functional Limitations- ADL's Difficulty with laundry and removing clothes from dryer, and is not able to fix meals as often. Can was single dishes if she has things to hang onto. Functional Limitations- Mobility/Gait Safer using a cane for gait but doesn't like to. 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 Therapy/Recovery Has a 15 yr old adopted son, daughter is taking care of him currently. Lives with daughter in one story home. Has 4 generations living together. Pt does not want to use a cane for gait. PT-OP-C Subjective Start: 12/07/17 09:46 Freq: Status: Active Protocol: Document 01/13/18 11:19 LRN (Rec: 01/13/18 12:40 LRN [id number]) OP-PT Subjective Patient Comments Patient Comments Doesn't think she needs a cane because her balance has been better. Patient Reported Progress Improving PT-OP-D Balance Start: 12/07/17 09:46 Freq: Status: Active Protocol: Document 12/07/17 10:39 LRN (Rec: 12/07/17 11:55 LRN [id number]) OP-PT Balance Assessment Sitting Balance Static Sitting Balance Ability Normal Dynamic Sitting Balance Ability Good Sitting Balance Comments Core weakness noted. Pt is slow to return to starting position and tends to lean backwards in static sitting. Standing Balance Static Standing Balance Ability Fair Dynamic Standing Balance Ability Poor Balance Tests Pruett Balance Test Pruett Balance Test Score 1 Single Limb Standing Single Limb- Right 0 sec's Single Limb- Left 0 sec's Pruett Balance Assessment Evaluation Sitting to Standing Ability Independent w/out Hands Unsupported Stance Supervision- 2 minutes Sitting Unsupported, Feet on Floor Safely- 2 minutes Standing to Sitting Ability Independent, Uncontrolled Transfer Ability Supervision, Verbal Cues Unsupported Stance- Eyes Closed Supervision, 10 seconds Unsupported Stance- Eyes Open Assist to attain,<15 secs Reaching Forward Standing Safely, 5 inches Pick- Up Object From Floor Requires Assistance Look Behind Shoulder - Standing Supervision w/Turning Turning 360 Degrees Requires Assistance Unsupported Stance, Alternating Feet on Assist to Prevent Fall Stair Unsupported Tandem Stance Balance Lost- Step/Stand Unilateral Leg Stance Unable,assist to not fall Total Score Pruett Total Score (out of 56 points) 21 Pruett Impairment Rating 60 to 79% Impaired (Score 12- 22) Jacqueline Fall Scale Copyright Permission Jacqueline COLBY, Jacqueline RM, Yosef SJ. Development of a scale to identify the fall- prone patient. Can J Aging 1989;8;366-7. Angel Phillips (2009). Preventing patient falls. (2nd ed). [place]: Fowler. PT-OP-E Functional Tests Start: 12/07/17 09:46 Freq: Status: Active Protocol: Document 01/13/18 11:19 LRN (Rec: 01/13/18 12:59 LRN [id number]) Functional Tests Timed Up and Go (TUG) Score 21 Comments 2 attempts to stand, almost crossed legs walking a few times. TUG Impairment Rating 100% Impaired (Score 20) PT-OP-G Mobility & Gait Start: 12/07/17 09:46 Freq: Status: Active Protocol: Document 12/07/17 10:39 LRN (Rec: 12/07/17 11:55 LRN [id number]) OP Mobility Evaluation Transfers Sit to Stand INdependent OP Gait Assessment Gait Gait Assistance Required: Independent Comments Gait Comments Decreased step length on the right. Increased trunk sway with gait and excessive lean to the right. Pt takes frequent standing rest stops due to fatigue. PT-OP-M Strength Start: 12/07/17 09:46 Freq: Status: Active Protocol: Document 12/07/17 10:39 LRN (Rec: 12/07/17 14:34 LRN [id number]) Trunk Strength Trunk Manual Muscle Testing Core Stabilization Pt not able to maintain a stable core with MMT of lower extremities. Comments Formal MMT deferred due to time constraints. Hip Strength Hip Manual Muscle Testing Right Flexion (L2) 5 Normal Left Flexion (L2) 5 Normal Knee Strength Knee Manual Muscle Testing Right Flexion (S2) 5 Normal Extension (L3) 3+ Fair+ Comments Pt had difficulty maintaining core stability. Left Flexion (S2) 5 Normal Extension (L3) 5 Normal Comments Pt had difficulty maintaining core stability. Ankle/Foot Strength Ankle and Foot Manual Muscle Testing Right Dorsiflexion (L4) 5 Normal Plantarflexion (S1) 5 Normal Left Dorsiflexion (L4) 5 Normal Plantarflexion (S1) 5 Normal PT-OP-O Vestibular Start: 12/07/17 09:46 Freq: Status: Active Protocol: Document 01/11/18 13:45 DCW (Rec: 01/11/18 15:41 DCW [id number]) Vestibular Assessment Screening Tests Vestibular Artery Screen Negative Auditory Tests Kc Test Negative Rinne Test Negative Air Conduction Results Equal Visual Testing Smooth Pursuits Horizontal Negative Smooth Pursuits Vertical Negative Saccades Horizontal Negative Gaze Evoked Nystagmus With Fixation Negative Gaze Evoked Nystagmus Without Fixation Negative Heave Test Negative Thrust Head Negative DVA (Line Degradation) 4 Head Shake Negative Positional Testing Dany-Hallpike Negative Left Negative Right Rolling Test Negative Left Negative Right PT-OP-Q Treatments Start: 12/07/17 09:46 Freq: Status: Active Protocol: Document 01/13/18 11:19 LRN (Rec: 01/13/18 12:04 LRN [id number]) Cardio Equipment Recumbent Stepper (Sci-Fit) Duration (Minutes) 7 Resistance 1 Seat Position 12 Gym Equipment Shuttle Recovery Bilateral Squats Details Pillow for head rest, rest periods Resistance 62 Reps/Time 15x3 Therapeutic Exercises Sitting Exercises 2 Sitting Exercise Name Marching Side bilateral Reps/Minutes 10x3 reps 1 Sitting Exercise Name Lean backs Resistance gravity Equipment Used Chair near wall, toes on wall Reps/Minutes 10x Comments lean back and hold 5 sec's Standing Exercises Trunk rotation Standing Exercise Name Trunk rotation Side bilateral Resistance L 2 T-Band Reps/Minutes 10x 3 Standing Exercise Name Toe/Heel raises Side bilateral Reps/Minutes 10x3 2 Standing Exercise Name wobble board with no HS: FWD Reps/Minutes 10' 1 Standing Exercise Name marching on foam with single hand support Equipment Used Bar Comments Holding and hovering with one hand Neuro Re-Education Treatment Balance Activities 4 Details Balance training Surface Wobble board Equipment in parallel bars Comments Teaching hip and knee strategy . PT-OP-T Assessment and Plan Start: 12/07/17 09:46 Freq: Status: Active Protocol: Document 01/13/18 11:19 LRN (Rec: 01/13/18 12:04 LRN [id number]) Physical Therapy Assessment Assessment Summary Assessment Pt showed poor balance with TUG test and and pt is at a risk of falling (vestibular assessment previously does not point to vestibular involvement); therefore she needs an assistive device for gait safety. Weak core. Physical Therapy Plan Frequency and Duration Frequency of Treatment 2x/Week Duration of Treatment two months Plan of Care Start Date 01/11/18 Plan of Care End Date 03/13/18 Next Visit Focus/Plan Next Note Type Treatment Note Next Visit Plan Progress safety with static standing balance, anticipatory balance reactions, and progress to dynamic standing balance ex's. Strengthen core .
--- NOTE | 2018-01-18 13:00 | PT.OTN ---
Current Diagnoses Unspecified abnormalities of gait and mobility (01/18/18) Repeated falls (01/18/18) Weakness (01/18/18) Physical Therapy Treatment Note PT-OP-A Visit Information Start: 12/07/17 09:46 Freq: Status: Active Protocol: Document 01/18/18 12:15 EA (Rec: 01/18/18 12:59 EA [id number]) Out-Patient Physical Therapy Visit Information Visit Information Visit Type Treatment Note Visit Start Time 11:19 Visit Stop Time 12:00 Total Visit Minutes 40 Visit Number 8 Number of NUCLEAR CONTROL ROOM OPERATOR Visits 0 PT-OP-B Current Condition Start: 12/07/17 09:46 Freq: Status: Active Protocol: Document 12/07/17 10:39 LRN (Rec: 12/07/17 11:55 LRN [id number]) Current Condition History of Current Condition Onset Date Started Falling 6 months ago, feeling weak after first fall 6 months ago. Current Complaints Weakness, falling daily. Dizzy with turning resulting in falls. History of Current Condition Pt states that after her first fall she began to feel weak and has suffered repeated falls. She reports falling 1- 2 times per day and has had 2 very big falls in the past 6 months. Last fall occured 2 months ago. First fall was due to turning to stop her dog from running out of the house . Second fall from reaching to support self when feeling a loss of balance and missed, causing a fall. She thinks she might have had a stroke because she can't remember phone numbers anymore. PT lives with daughter, adopted son and his sister. PMH: R Partial knee arthroplasty 2 yrs ago. Prior Treatments and Tests MRI, said she didn't have a concussion. Treatment Goals Patient/Caregiver Goals Pt goal is to be stronger ( ankle, toes, feet) to keep her from falling. Prior Functional Status Baseline Function- ADL's Independent Baseline Function- Mobility Independent Baseline Function- Other Able to fill corner former, do laundry, and remove clothes from dryer, fix meals, walk without an assistive device, and drive. Current Functional Impairments (Reported) Functional Limitations- ADL's Difficulty with laundry and removing clothes from dryer, and is not able to fix meals as often. Can was single dishes if she has things to hang onto. Functional Limitations- Mobility/Gait Safer using a cane for gait but doesn't like to. 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 Therapy/Recovery Has a 15 yr old adopted son, daughter is taking care of him currently. Lives with daughter in one story home. Has 4 generations living together. Pt does not want to use a cane for gait. PT-OP-C Subjective Start: 12/07/17 09:46 Freq: Status: Active Protocol: Document 01/18/18 12:15 EA (Rec: 01/18/18 12:59 EA [id number]) OP-PT Subjective Patient Comments Patient Comments Pt reports skilled PT is helping her balance; however states that when she standing she feels that she would fall backwards; states managed to control it often. PT-OP-D Balance Start: 12/07/17 09:46 Freq: Status: Active Protocol: Document 12/07/17 10:39 LRN (Rec: 12/07/17 11:55 LRN [id number]) OP-PT Balance Assessment Sitting Balance Static Sitting Balance Ability Normal Dynamic Sitting Balance Ability Good Sitting Balance Comments Core weakness noted. Pt is slow to return to starting position and tends to lean backwards in static sitting. Standing Balance Static Standing Balance Ability Fair Dynamic Standing Balance Ability Poor Balance Tests Pruett Balance Test Pruett Balance Test Score 1 Single Limb Standing Single Limb- Right 0 sec's Single Limb- Left 0 sec's Pruett Balance Assessment Evaluation Sitting to Standing Ability Independent w/out Hands Unsupported Stance Supervision- 2 minutes Sitting Unsupported, Feet on Floor Safely- 2 minutes Standing to Sitting Ability Independent, Uncontrolled Transfer Ability Supervision, Verbal Cues Unsupported Stance- Eyes Closed Supervision, 10 seconds Unsupported Stance- Eyes Open Assist to attain,<15 secs Reaching Forward Standing Safely, 5 inches Pick- Up Object From Floor Requires Assistance Look Behind Shoulder - Standing Supervision w/Turning Turning 360 Degrees Requires Assistance Unsupported Stance, Alternating Feet on Assist to Prevent Fall Stair Unsupported Tandem Stance Balance Lost- Step/Stand Unilateral Leg Stance Unable,assist to not fall Total Score Pruett Total Score (out of 56 points) 21 Pruett Impairment Rating 60 to 79% Impaired (Score 12- 22) Jacqueline Fall Scale Copyright Permission Jacqueline COLBY, Jacqueline RM, Yosef SJ. Development of a scale to identify the fall- prone patient. Can J Aging 1989;8;366-7. Angel Phillips (2009). Preventing patient falls. (2nd ed). [place]: Fowler. PT-OP-E Functional Tests Start: 12/07/17 09:46 Freq: Status: Active Protocol: Document 01/13/18 11:19 LRN (Rec: 01/13/18 12:59 LRN [id number]) Functional Tests Timed Up and Go (TUG) Score 21 Comments 2 attempts to stand, almost crossed legs walking a few times. TUG Impairment Rating 100% Impaired (Score 20) PT-OP-G Mobility & Gait Start: 12/07/17 09:46 Freq: Status: Active Protocol: Document 12/07/17 10:39 LRN (Rec: 12/07/17 11:55 LRN [id number]) OP Mobility Evaluation Transfers Sit to Stand INdependent OP Gait Assessment Gait Gait Assistance Required: Independent Comments Gait Comments Decreased step length on the right. Increased trunk sway with gait and excessive lean to the right. Pt takes frequent standing rest stops due to fatigue. PT-OP-M Strength Start: 12/07/17 09:46 Freq: Status: Active Protocol: Document 12/07/17 10:39 LRN (Rec: 12/07/17 14:34 LRN [id number]) Trunk Strength Trunk Manual Muscle Testing Core Stabilization Pt not able to maintain a stable core with MMT of lower extremities. Comments Formal MMT deferred due to time constraints. Hip Strength Hip Manual Muscle Testing Right Flexion (L2) 5 Normal Left Flexion (L2) 5 Normal Knee Strength Knee Manual Muscle Testing Right Flexion (S2) 5 Normal Extension (L3) 3+ Fair+ Comments Pt had difficulty maintaining core stability. Left Flexion (S2) 5 Normal Extension (L3) 5 Normal Comments Pt had difficulty maintaining core stability. Ankle/Foot Strength Ankle and Foot Manual Muscle Testing Right Dorsiflexion (L4) 5 Normal Plantarflexion (S1) 5 Normal Left Dorsiflexion (L4) 5 Normal Plantarflexion (S1) 5 Normal PT-OP-O Vestibular Start: 12/07/17 09:46 Freq: Status: Active Protocol: Document 01/11/18 13:45 DCW (Rec: 01/11/18 15:41 DCW [id number]) Vestibular Assessment Screening Tests Vestibular Artery Screen Negative Auditory Tests Kc Test Negative Rinne Test Negative Air Conduction Results Equal Visual Testing Smooth Pursuits Horizontal Negative Smooth Pursuits Vertical Negative Saccades Horizontal Negative Gaze Evoked Nystagmus With Fixation Negative Gaze Evoked Nystagmus Without Fixation Negative Heave Test Negative Thrust Head Negative DVA (Line Degradation) 4 Head Shake Negative Positional Testing Dany-Hallpike Negative Left Negative Right Rolling Test Negative Left Negative Right PT-OP-Q Treatments Start: 12/07/17 09:46 Freq: Status: Active Protocol: Document 01/18/18 12:15 EA (Rec: 01/18/18 12:59 EA [id number]) Cardio Equipment Recumbent Stepper (Sci-Fit) Duration (Minutes) 7 Resistance 2 Seat Position 12 Therapeutic Exercises Standing Exercises Trunk rotation Standing Exercise Name Wobble board // bars slight trunk rot w/ slight knee bending Reps/Minutes x 5 each side Comments CGA 3 Standing Exercise Name Toe/Heel raises Side bilateral Reps/Minutes 10x3 2 Standing Exercise Name wobble board with no HS: FWD Reps/Minutes 10' 1 Standing Exercise Name marching on foam with single hand support Resistance 2# AW Equipment Used Bar Comments Holding and hovering with one hand Other Exercises Sit to Stand Equipment Used chair Reps/Minutes 10x Comments Used hands Neuro Re-Education Treatment Balance Activities 5 Details Tandem stance Comments // bars, arm raises as able 3 Details side-stepping Surface firm Equipment in parallel bars Reps/Duration 4 laps Comments needs UE support for balance PT-OP-T Assessment and Plan Start: 12/07/17 09:46 Freq: Status: Active Protocol: Document 01/18/18 12:15 EA (Rec: 01/18/18 12:59 EA [id number]) Physical Therapy Assessment Assessment Summary Assessment Pt had difficulty with head turning staggered stance. Requires frequent rest due to SOB, however tolerated treatment. Physical Therapy Plan Next Visit Focus/Plan Next Note Type Treatment Note Next Visit Plan Progress safety with static standing balance, anticipatory balance reactions, and progress to dynamic standing balance ex's. Strengthen core .
--- NOTE | 2018-01-21 10:19 | PT.OTN ---
Current Diagnoses Unspecified abnormalities of gait and mobility (01/21/18) Repeated falls (01/21/18) Weakness (01/21/18) Physical Therapy Treatment Note PT-OP-A Visit Information Start: 12/07/17 09:46 Freq: Status: Active Protocol: Document 01/18/18 12:15 EA (Rec: 01/18/18 12:59 EA [id number]) Out-Patient Physical Therapy Visit Information Visit Information Visit Type Treatment Note Visit Start Time 11:19 Visit Stop Time 12:00 Total Visit Minutes 40 Visit Number 8 Number of EDUCATION TRAINER Visits 0 PT-OP-B Current Condition Start: 12/07/17 09:46 Freq: Status: Active Protocol: Document 12/07/17 10:39 LRN (Rec: 12/07/17 11:55 LRN [id number]) Current Condition History of Current Condition Onset Date Started Falling 6 months ago, feeling weak after first fall 6 months ago. Current Complaints Weakness, falling daily. Dizzy with turning resulting in falls. History of Current Condition Pt states that after her first fall she began to feel weak and has suffered repeated falls. She reports falling 1- 2 times per day and has had 2 very big falls in the past 6 months. Last fall occured 2 months ago. First fall was due to turning to stop her dog from running out of the house . Second fall from reaching to support self when feeling a loss of balance and missed, causing a fall. She thinks she might have had a stroke because she can't remember phone numbers anymore. PT lives with daughter, adopted son and his sister. PMH: R Partial knee arthroplasty 2 yrs ago. Prior Treatments and Tests MRI, said she didn't have a concussion. Treatment Goals Patient/Caregiver Goals Pt goal is to be stronger ( ankle, toes, feet) to keep her from falling. Prior Functional Status Baseline Function- ADL's Independent Baseline Function- Mobility Independent Baseline Function- Other Able to fill flexographic press plate setter, do laundry, and remove clothes from dryer, fix meals, walk without an assistive device, and drive. Current Functional Impairments (Reported) Functional Limitations- ADL's Difficulty with laundry and removing clothes from dryer, and is not able to fix meals as often. Can was single dishes if she has things to hang onto. Functional Limitations- Mobility/Gait Safer using a cane for gait but doesn't like to. 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 Therapy/Recovery Has a 15 yr old adopted son, daughter is taking care of him currently. Lives with daughter in one story home. Has 4 generations living together. Pt does not want to use a cane for gait. PT-OP-C Subjective Start: 12/07/17 09:46 Freq: Status: Active Protocol: Document 01/21/18 10:01 SA (Rec: 01/21/18 10:19 SA [id number]) OP-PT Subjective Patient Comments Patient Comments Pt states she is doing seated marching, LAQs at home as part of HEP, using SPC at home and in community. States she is managing her blood sugar levels better and that is helping her feel more stable when she is up on her feet. Patient Reported Progress Improving PT-OP-D Balance Start: 12/07/17 09:46 Freq: Status: Active Protocol: Document 01/21/18 10:01 SA (Rec: 01/21/18 10:19 [email or web address]) [place] Balance Assessment Evaluation Sitting to Standing Ability Independent w/out Hands Unsupported Stance Supervision- 2 minutes Sitting Unsupported, Feet on Floor Safely- 2 minutes Standing to Sitting Ability Independent, Uncontrolled Transfer Ability Supervision, Verbal Cues Unsupported Stance- Eyes Closed Supervision, 10 seconds Unsupported Stance- Eyes Open Assist to attain,<15 secs Reaching Forward Standing Safely, 5 inches Pick- Up Object From Floor Requires Assistance Look Behind Shoulder - Standing Supervision w/Turning Turning 360 Degrees Requires Assistance Unsupported Stance, Alternating Feet on Assist to Prevent Fall Stair Unsupported Tandem Stance Balance Lost- Step/Stand Unilateral Leg Stance Unable,assist to not fall Total Score [place] Total Score (out of 56 points) 21 [place] Impairment Rating 60 to 79% Impaired (Score 12- 22) PT-OP-E Functional Tests Start: 12/07/17 09:46 Freq: Status: Active Protocol: Document 01/13/18 11:19 LRN (Rec: 01/13/18 12:59 LRN [id number]) Functional Tests Timed Up and Go (TUG) Score 21 Comments 2 attempts to stand, almost crossed legs walking a few times. TUG Impairment Rating 100% Impaired (Score 20) PT-OP-G Mobility & Gait Start: 12/07/17 09:46 Freq: Status: Active Protocol: Document 12/07/17 10:39 LRN (Rec: 12/07/17 11:55 LRN [id number]) OP Mobility Evaluation Transfers Sit to Stand INdependent OP Gait Assessment Gait Gait Assistance Required: Independent Comments Gait Comments Decreased step length on the right. Increased trunk sway with gait and excessive lean to the right. Pt takes frequent standing rest stops due to fatigue. PT-OP-M Strength Start: 12/07/17 09:46 Freq: Status: Active Protocol: Document 12/07/17 10:39 LRN (Rec: 12/07/17 14:34 LRN [id number]) Trunk Strength Trunk Manual Muscle Testing Core Stabilization Pt not able to maintain a stable core with MMT of lower extremities. Comments Formal MMT deferred due to time constraints. Hip Strength Hip Manual Muscle Testing Right Flexion (L2) 5 Normal Left Flexion (L2) 5 Normal Knee Strength Knee Manual Muscle Testing Right Flexion (S2) 5 Normal Extension (L3) 3+ Fair+ Comments Pt had difficulty maintaining core stability. Left Flexion (S2) 5 Normal Extension (L3) 5 Normal Comments Pt had difficulty maintaining core stability. Ankle/Foot Strength Ankle and Foot Manual Muscle Testing Right Dorsiflexion (L4) 5 Normal Plantarflexion (S1) 5 Normal Left Dorsiflexion (L4) 5 Normal Plantarflexion (S1) 5 Normal PT-OP-O Vestibular Start: 12/07/17 09:46 Freq: Status: Active Protocol: Document 01/11/18 13:45 DCW (Rec: 01/11/18 15:41 DCW [id number]) Vestibular Assessment Screening Tests Vestibular Artery Screen Negative Auditory Tests Kc Test Negative Rinne Test Negative Air Conduction Results Equal Visual Testing Smooth Pursuits Horizontal Negative Smooth Pursuits Vertical Negative Saccades Horizontal Negative Gaze Evoked Nystagmus With Fixation Negative Gaze Evoked Nystagmus Without Fixation Negative Heave Test Negative Thrust Head Negative DVA (Line Degradation) 4 Head Shake Negative Positional Testing [place]-Hallpike Negative Left Negative Right Rolling Test Negative Left Negative Right PT-OP-Q Treatments Start: 12/07/17 09:46 Freq: Status: Active Protocol: Document 01/21/18 10:01 SA (Rec: 01/21/18 10:19 SA [email or web address]) Cardio Equipment Recumbent Stepper (Sci-Fit) Duration (Minutes) 7 Resistance 2 Seat Position 12 Therapeutic Exercises Sitting Exercises 4 Sitting Exercise Name ankle pumps Side bilateral Reps/Minutes x 10 reps 3 Sitting Exercise Name knee ext Side bilateral Reps/Minutes x 10 reps 2 Sitting Exercise Name Marching Side bilateral Reps/Minutes 10x3 reps 1 Sitting Exercise Name Lean backs Resistance gravity Equipment Used Chair near wall, toes on wall Reps/Minutes 10x Comments lean back and hold 5 sec's Standing Exercises Sit to stands Standing Exercise Name with focus on controlled descent Reps/Minutes 10x Comments limiting UE use Trunk rotation Standing Exercise Name Wobble board // bars slight trunk rot w/ slight knee bending Reps/Minutes x 5 each side Comments CGA 3 Standing Exercise Name Toe/Heel raises Side bilateral Reps/Minutes 10x3 2 Standing Exercise Name wobble board with no HS: FWD Reps/Minutes 10' 1 Standing Exercise Name marching on foam with single hand support Resistance 2# AW Equipment Used Bar Comments Holding and hovering with one hand Neuro Re-Education Treatment Balance Activities Ambulation with lateral head turns Details with SPC and gait belt Surface even Comments Ambualtion with verbal cues for R and L head turns to challange dynamic gait/balance . 5 Details Tandem stance Comments // bars, arm raises as able 3 Details side-stepping Surface firm Equipment in parallel bars Reps/Duration 4 laps Comments needs UE support for balance 2 Details standing balance in narrow base of support Surface firm Equipment in parallel bars Reps/Duration 3 reps of 10 sec each 1 Details standing balance without UE support- EO, EC, head motions Surface firm Equipment in parallel bars Comments feet together PT-OP-T Assessment and Plan Start: 12/07/17 09:46 Freq: Status: Active Protocol: Document 01/21/18 10:01 (Rec: 01/21/18 10:19 [id number]) Physical Therapy Assessment Rehab Potential Rehabilitation Potential Good Evaluation Complexity Number of Personal Factors/Comorbidities 3 or More Number of Body Systems Impaired 3 Clinical Presentation at Evaluation Evolving Impairments Impairments Activity Tolerance Balance Functional Activities Gait Strength Transfers Other Concerns Fall Risk Increased risk of falling. Patient reports falling 1-2 times daily. Age Related Concerns Diabetic, type II; Partial L knee replacement. 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 Barriers to Rehabilitation Age, Diabetes, pt not wanting to use assistive device for gait. Goals Three Impairment Pt lacks appropriate HEP. Short Term Goal (STG) Pt will be educated in an initial HEP of core, hip and balance ex's. STG Duration 02/14/18 Guide Plant Goal (LTG) Pt will be independent in a HEP. LTG Duration 03/08/18 Two Impairment Decreased core strength. Guide Plant Goal (LTG) Pt able to maintain core stability with use of LE's and report a decrease in frequency of falls. LTG Duration 03/08/18 1 Impairment Decreased balance per SHERIDAN score of 21/56 (>35 safe ambulation with AD). Mcc Goal (LTG) Pt will improve SHERIDAN score to 35 and will demonstrate improved safety with gait ( able to turn with minimal loss of balance). LTG Duration 03/08/18 Progress Towards Goals Progress Towards Goals Slow Progress due to Activity Tolerance Progress Comments Frequent seated rest breaks d/ t SOB, Assessment Summary Assessment Pt tolerated session well, feeling fatigued at end of session. Pt challenged with head turns during gait and had one minor LOB with Petr for correction. Tandem stance and eyes closed also very challenging for pt. Physical Therapy Plan Frequency and Duration Frequency of Treatment 2x/Week Next Visit Focus/Plan Next Note Type Treatment Note Next Visit Plan Progress safety and balance training, righting reactions and core strength.
--- NOTE | 2018-01-25 13:41 | PT.OTN ---
Current Diagnoses Unspecified abnormalities of gait and mobility (01/25/18) Repeated falls (01/25/18) Weakness (01/25/18) Physical Therapy Treatment Note PT-OP-A Visit Information Start: 12/07/17 09:46 Freq: Status: Active Protocol: Document 01/25/18 13:04 EA (Rec: 01/25/18 13:04 EA [id number]) Out-Patient Physical Therapy Visit Information Visit Information Visit Type Treatment Note Visit Start Time 12:30 Visit Stop Time 13:00 Total Visit Minutes 30 Visit Number 9 PT-OP-B Current Condition Start: 12/07/17 09:46 Freq: Status: Active Protocol: Document 12/07/17 10:39 LRN (Rec: 12/07/17 11:55 LRN [id number]) Current Condition History of Current Condition Onset Date Started Falling 6 months ago, feeling weak after first fall 6 months ago. Current Complaints Weakness, falling daily. Dizzy with turning resulting in falls. History of Current Condition Pt states that after her first fall she began to feel weak and has suffered repeated falls. She reports falling 1- 2 times per day and has had 2 very big falls in the past 6 months. Last fall occured 2 months ago. First fall was due to turning to stop her dog from running out of the house . Second fall from reaching to support self when feeling a loss of balance and missed, causing a fall. She thinks she might have had a stroke because she can't remember phone numbers anymore. PT lives with daughter, adopted son and his sister. PMH: R Partial knee arthroplasty 2 yrs ago. Prior Treatments and Tests MRI, said she didn't have a concussion. Treatment Goals Patient/Caregiver Goals Pt goal is to be stronger ( ankle, toes, feet) to keep her from falling. Prior Functional Status Baseline Function- ADL's Independent Baseline Function- Mobility Independent Baseline Function- Other Able to fill wheat cleaner, do laundry, and remove clothes from dryer, fix meals, walk without an assistive device, and drive. Current Functional Impairments (Reported) Functional Limitations- ADL's Difficulty with laundry and removing clothes from dryer, and is not able to fix meals as often. Can was single dishes if she has things to hang onto. Functional Limitations- Mobility/Gait Safer using a cane for gait but doesn't like to. 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 Therapy/Recovery Has a 15 yr old adopted son, daughter is taking care of him currently. Lives with daughter in one story home. Has 4 generations living together. Pt does not want to use a cane for gait. PT-OP-C Subjective Start: 12/07/17 09:46 Freq: Status: Active Protocol: Document 01/25/18 12:59 EA (Rec: 01/25/18 13:03 EA [id number]) OP-PT Subjective Patient Comments Patient Comments Pt reports unable to set alarm for scheduled appaointment that is why she is late today. Reports na fall recently. PT-OP-D Balance Start: 12/07/17 09:46 Freq: Status: Active Protocol: Document 01/21/18 10:01 SA (Rec: 01/21/18 10:19 SA [email or web address]) [place] Balance Assessment Evaluation Sitting to Standing Ability Independent w/out Hands Unsupported Stance Supervision- 2 minutes Sitting Unsupported, Feet on Floor Safely- 2 minutes Standing to Sitting Ability Independent, Uncontrolled Transfer Ability Supervision, Verbal Cues Unsupported Stance- Eyes Closed Supervision, 10 seconds Unsupported Stance- Eyes Open Assist to attain,<15 secs Reaching Forward Standing Safely, 5 inches Pick- Up Object From Floor Requires Assistance Look Behind Shoulder - Standing Supervision w/Turning Turning 360 Degrees Requires Assistance Unsupported Stance, Alternating Feet on Assist to Prevent Fall Stair Unsupported Tandem Stance Balance Lost- Step/Stand Unilateral Leg Stance Unable,assist to not fall Total Score [place] Total Score (out of 56 points) 21 [place] Impairment Rating 60 to 79% Impaired (Score 12- 22) PT-OP-E Functional Tests Start: 12/07/17 09:46 Freq: Status: Active Protocol: Document 01/13/18 11:19 LRN (Rec: 01/13/18 12:59 LRN [id number]) Functional Tests Timed Up and Go (TUG) Score 21 Comments 2 attempts to stand, almost crossed legs walking a few times. TUG Impairment Rating 100% Impaired (Score 20) PT-OP-G Mobility & Gait Start: 12/07/17 09:46 Freq: Status: Active Protocol: Document 12/07/17 10:39 LRN (Rec: 12/07/17 11:55 LRN [id number]) OP Mobility Evaluation Transfers Sit to Stand INdependent OP Gait Assessment Gait Gait Assistance Required: Independent Comments Gait Comments Decreased step length on the right. Increased trunk sway with gait and excessive lean to the right. Pt takes frequent standing rest stops due to fatigue. PT-OP-M Strength Start: 12/07/17 09:46 Freq: Status: Active Protocol: Document 12/07/17 10:39 LRN (Rec: 12/07/17 14:34 LRN [id number]) Trunk Strength Trunk Manual Muscle Testing Core Stabilization Pt not able to maintain a stable core with MMT of lower extremities. Comments Formal MMT deferred due to time constraints. Hip Strength Hip Manual Muscle Testing Right Flexion (L2) 5 Normal Left Flexion (L2) 5 Normal Knee Strength Knee Manual Muscle Testing Right Flexion (S2) 5 Normal Extension (L3) 3+ Fair+ Comments Pt had difficulty maintaining core stability. Left Flexion (S2) 5 Normal Extension (L3) 5 Normal Comments Pt had difficulty maintaining core stability. Ankle/Foot Strength Ankle and Foot Manual Muscle Testing Right Dorsiflexion (L4) 5 Normal Plantarflexion (S1) 5 Normal Left Dorsiflexion (L4) 5 Normal Plantarflexion (S1) 5 Normal PT-OP-O Vestibular Start: 12/07/17 09:46 Freq: Status: Active Protocol: Document 01/11/18 13:45 DCW (Rec: 01/11/18 15:41 DCW [id number]) Vestibular Assessment Screening Tests Vestibular Artery Screen Negative Auditory Tests Kc Test Negative Rinne Test Negative Air Conduction Results Equal Visual Testing Smooth Pursuits Horizontal Negative Smooth Pursuits Vertical Negative Saccades Horizontal Negative Gaze Evoked Nystagmus With Fixation Negative Gaze Evoked Nystagmus Without Fixation Negative Heave Test Negative Thrust Head Negative DVA (Line Degradation) 4 Head Shake Negative Positional Testing [place]-Hallpike Negative Left Negative Right Rolling Test Negative Left Negative Right PT-OP-Q Treatments Start: 12/07/17 09:46 Freq: Status: Active Protocol: Document 01/25/18 12:59 EA (Rec: 01/25/18 13:03 EA [id number]) Therapeutic Exercises Standing Exercises Sit to stands Standing Exercise Name with focus on controlled descent Reps/Minutes 10x Comments limiting UE use Trunk rotation Standing Exercise Name Wobble board // bars slight trunk rot w/ slight knee bending Reps/Minutes x 5 each side Comments CGA 3 Standing Exercise Name Toe/Heel raises Side bilateral Reps/Minutes 10x3 2 Standing Exercise Name wobble board with no HS: FWD Reps/Minutes 10' 1 Standing Exercise Name marching on foam with single hand support Resistance 2# AW Equipment Used Bar Comments Holding and hovering with one hand Other Exercises Sit to Stand Equipment Used chair Reps/Minutes 10x Comments Used hands Neuro Re-Education Treatment Balance Activities 6 Details // bars obstacle: stp FWD/SDW Reps/Duration x 2 lines each Comments 2# AW: sinle hand support 5 Details Tandem stance Comments // bars, arm raises as able 3 Details side-stepping Surface firm Equipment in parallel bars Reps/Duration 4 laps Comments needs UE support for balance 2 Details standing balance in narrow base of support Surface firm Equipment in parallel bars Reps/Duration 3 reps of 10 sec each 1 Details standing balance without UE support- EO, EC, head motions Surface firm Equipment in parallel bars Comments feet together PT-OP-T Assessment and Plan Start: 12/07/17 09:46 Freq: Status: Active Protocol: Document 01/25/18 12:59 EA (Rec: 01/25/18 13:03 EA [id number]) Physical Therapy Assessment Assessment Summary Assessment Tolerated treatment but requires frequent rests due to SOB/fatigue. Physical Therapy Plan Next Visit Focus/Plan Next Note Type Treatment Note Next Visit Plan Progress safety and balance training, righting reactions and core strength.
--- NOTE | 2018-01-27 15:30 | PT.OTN ---
Current Diagnoses Unspecified abnormalities of gait and mobility (01/27/18) Repeated falls (01/27/18) Weakness (01/27/18) Physical Therapy Treatment Note PT-OP-A Visit Information Start: 12/07/17 09:46 Freq: Status: Active Protocol: Document 01/27/18 15:19 EA (Rec: 01/27/18 15:27 EA [id number]) Out-Patient Physical Therapy Visit Information Visit Information Visit Type Treatment Note Visit Start Time 14:30 Visit Stop Time 15:15 Total Visit Minutes 45 Visit Number 10 PT-OP-B Current Condition Start: 12/07/17 09:46 Freq: Status: Active Protocol: Document 12/07/17 10:39 LRN (Rec: 12/07/17 11:55 LRN [id number]) Current Condition History of Current Condition Onset Date Started Falling 6 months ago, feeling weak after first fall 6 months ago. Current Complaints Weakness, falling daily. Dizzy with turning resulting in falls. History of Current Condition Pt states that after her first fall she began to feel weak and has suffered repeated falls. She reports falling 1- 2 times per day and has had 2 very big falls in the past 6 months. Last fall occured 2 months ago. First fall was due to turning to stop her dog from running out of the house . Second fall from reaching to support self when feeling a loss of balance and missed, causing a fall. She thinks she might have had a stroke because she can't remember phone numbers anymore. PT lives with daughter, adopted son and his sister. PMH: R Partial knee arthroplasty 2 yrs ago. Prior Treatments and Tests MRI, said she didn't have a concussion. Treatment Goals Patient/Caregiver Goals Pt goal is to be stronger ( ankle, toes, feet) to keep her from falling. 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 Current Functional Impairments (Reported) Functional Limitations- ADL's Difficulty with laundry and removing clothes from dryer, and is not able to fix meals as often. Can was single dishes if she has things to hang onto. Functional Limitations- Mobility/Gait Safer using a cane for gait but doesn't like to. 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 Lives with daughter in one story home. Has 4 generations living together. Pt does not want to use a cane for gait. PT-OP-C Subjective Start: 12/07/17 09:46 Freq: Status: Active Protocol: Document 01/27/18 15:19 EA (Rec: 01/27/18 15:27 EA [id number]) OP-PT Subjective Patient Comments Patient Comments Pt reports compliant with HEP and denies any fall recently. Patient Reported Progress Improving PT-OP-D Balance Start: 12/07/17 09:46 Freq: Status: Active Protocol: Document 01/21/18 10:01 SA (Rec: 01/21/18 10:19 SA [id number]) Pruett Balance Assessment Evaluation Sitting to Standing Ability Independent w/out Hands Unsupported Stance Supervision- 2 minutes Sitting Unsupported, Feet on Floor Safely- 2 minutes Standing to Sitting Ability Independent, Uncontrolled Transfer Ability Supervision, Verbal Cues Unsupported Stance- Eyes Closed Supervision, 10 seconds Unsupported Stance- Eyes Open Assist to attain,<15 secs Reaching Forward Standing Safely, 5 inches Pick- Up Object From Floor Requires Assistance Look Behind Shoulder - Standing Supervision w/Turning Turning 360 Degrees Requires Assistance Unsupported Stance, Alternating Feet on Assist to Prevent Fall Stair Unsupported Tandem Stance Balance Lost- Step/Stand Unilateral Leg Stance Unable,assist to not fall Total Score Pruett Total Score (out of 56 points) 21 Pruett Impairment Rating 60 to 79% Impaired (Score 12- 22) PT-OP-E Functional Tests Start: 12/07/17 09:46 Freq: Status: Active Protocol: Document 01/13/18 11:19 LRN (Rec: 01/13/18 12:59 LRN [id number]) Functional Tests Timed Up and Go (TUG) Score 21 Comments 2 attempts to stand, almost crossed legs walking a few times. TUG Impairment Rating 100% Impaired (Score 20) PT-OP-G Mobility & Gait Start: 12/07/17 09:46 Freq: Status: Active Protocol: Document 12/07/17 10:39 LRN (Rec: 12/07/17 11:55 LRN [id number]) OP Mobility Evaluation Transfers Sit to Stand INdependent OP Gait Assessment Gait Gait Assistance Required: Independent Comments Gait Comments Decreased step length on the right. Increased trunk sway with gait and excessive lean to the right. Pt takes frequent standing rest stops due to fatigue. PT-OP-M Strength Start: 12/07/17 09:46 Freq: Status: Active Protocol: Document 12/07/17 10:39 LRN (Rec: 12/07/17 14:34 LRN [id number]) Trunk Strength Trunk Manual Muscle Testing Core Stabilization Pt not able to maintain a stable core with MMT of lower extremities. Comments Formal MMT deferred due to time constraints. Hip Strength Hip Manual Muscle Testing Right Flexion (L2) 5 Normal Left Flexion (L2) 5 Normal Knee Strength Knee Manual Muscle Testing Right Flexion (S2) 5 Normal Extension (L3) 3+ Fair+ Comments Pt had difficulty maintaining core stability. Left Flexion (S2) 5 Normal Extension (L3) 5 Normal Comments Pt had difficulty maintaining core stability. Ankle/Foot Strength Ankle and Foot Manual Muscle Testing Right Dorsiflexion (L4) 5 Normal Plantarflexion (S1) 5 Normal Left Dorsiflexion (L4) 5 Normal Plantarflexion (S1) 5 Normal PT-OP-O Vestibular Start: 12/07/17 09:46 Freq: Status: Active Protocol: Document 01/11/18 13:45 DCW (Rec: 01/11/18 15:41 DCW [id number]) Vestibular Assessment Screening Tests Vestibular Artery Screen Negative Auditory Tests Kc Test Negative Rinne Test Negative Air Conduction Results Equal Visual Testing Smooth Pursuits Horizontal Negative Smooth Pursuits Vertical Negative Saccades Horizontal Negative Gaze Evoked Nystagmus With Fixation Negative Gaze Evoked Nystagmus Without Fixation Negative Heave Test Negative Thrust Head Negative DVA (Line Degradation) 4 Head Shake Negative Positional Testing Dany-Hallpike Negative Left Negative Right Rolling Test Negative Left Negative Right PT-OP-Q Treatments Start: 12/07/17 09:46 Freq: Status: Active Protocol: Document 01/27/18 15:28 EA (Rec: 01/27/18 15:30 EA [id number]) Cardio Equipment Recumbent Stepper (Sci-Fit) Duration (Minutes) 7 Resistance 2 Seat Position 12 Therapeutic Exercises Standing Exercises Sit to stands Standing Exercise Name with focus on controlled descent Reps/Minutes 10x Comments limiting UE use Trunk rotation Standing Exercise Name Wobble board // bars slight trunk rot w/ slight knee bending Reps/Minutes x 5 each side Comments CGA 3 Standing Exercise Name Toe/Heel raises Side bilateral Reps/Minutes 10x3 2 Standing Exercise Name wobble board with no HS: FWD Reps/Minutes 10' 1 Standing Exercise Name marching on foam with single hand support Resistance 2# AW Equipment Used Bar Comments Holding and hovering with one hand Neuro Re-Education Treatment Balance Activities 5 Details Tandem stance Comments // bars, arm raises as able 3 Details side-stepping Surface firm Equipment in parallel bars Reps/Duration 4 laps Comments needs UE support for balance 1 Details standing balance without UE support- EO, EC, head motions Surface firm Equipment in parallel bars Comments feet together: on foam PT-OP-T Assessment and Plan Start: 12/07/17 09:46 Freq: Status: Active Protocol: Document 01/27/18 15:19 EA (Rec: 01/27/18 15:27 EA [id number]) Physical Therapy Assessment Progress Towards Goals Progress Towards Goals Slow Progress due to Activity Tolerance Progress Comments Frequent seated rest breaks d/ t SOB, Assessment Summary Assessment Pt tolerated treatment well; a little improvement with standing balance noted but still difficulty with head turning. Physical Therapy Plan Next Visit Focus/Plan Next Note Type Treatment Note Next Visit Plan Progress safety and balance training, righting reactions and core strength.
--- NOTE | 2018-02-01 14:56 | PT.OTN ---
Current Diagnoses Unspecified abnormalities of gait and mobility (02/01/18) Repeated falls (02/01/18) Weakness (02/01/18) Physical Therapy Treatment Note PT-OP-A Visit Information Start: 12/07/17 09:46 Freq: Status: Active Protocol: Document 02/01/18 09:46 LRN (Rec: 02/01/18 13:30 LRN [id number]) Out-Patient Physical Therapy Visit Information Visit Information Visit Type Treatment Note Visit Start Time 09:46 Visit Stop Time 10:29 Total Visit Minutes 43 Visit Number 11 Number of BOTTOM STOP ATTACHER Visits 0 PT-OP-B Current Condition Start: 12/07/17 09:46 Freq: Status: Active Protocol: Document 12/07/17 10:39 LRN (Rec: 12/07/17 11:55 LRN [id number]) Current Condition History of Current Condition Onset Date Started Falling 6 months ago, feeling weak after first fall 6 months ago. Current Complaints Weakness, falling daily. Dizzy with turning resulting in falls. History of Current Condition Pt states that after her first fall she began to feel weak and has suffered repeated falls. She reports falling 1- 2 times per day and has had 2 very big falls in the past 6 months. Last fall occured 2 months ago. First fall was due to turning to stop her dog from running out of the house . Second fall from reaching to support self when feeling a loss of balance and missed, causing a fall. She thinks she might have had a stroke because she can't remember phone numbers anymore. PT lives with daughter, adopted son and his sister. PMH: R Partial knee arthroplasty 2 yrs ago. Prior Treatments and Tests MRI, said she didn't have a concussion. Treatment Goals Patient/Caregiver Goals Pt goal is to be stronger ( ankle, toes, feet) to keep her from falling. 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 Current Functional Impairments (Reported) Functional Limitations- ADL's Difficulty with laundry and removing clothes from dryer, and is not able to fix meals as often. Can was single dishes if she has things to hang onto. Functional Limitations- Mobility/Gait Safer using a cane for gait but doesn't like to. 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 Lives with daughter in one story home. Has 4 generations living together. Pt does not want to use a cane for gait. PT-OP-C Subjective Start: 12/07/17 09:46 Freq: Status: Active Protocol: Document 02/01/18 09:46 LRN (Rec: 02/01/18 13:30 LRN [id number]) OP-PT Subjective Patient Comments Patient Comments Doing HEP. Feeling safer with walking. Patient Reported Progress Improving PT-OP-D Balance Start: 12/07/17 09:46 Freq: Status: Active Protocol: Document 01/21/18 10:01 SA (Rec: 01/21/18 10:19 SA [id number]) Pruett Balance Assessment Evaluation Sitting to Standing Ability Independent w/out Hands Unsupported Stance Supervision- 2 minutes Sitting Unsupported, Feet on Floor Safely- 2 minutes Standing to Sitting Ability Independent, Uncontrolled Transfer Ability Supervision, Verbal Cues Unsupported Stance- Eyes Closed Supervision, 10 seconds Unsupported Stance- Eyes Open Assist to attain,<15 secs Reaching Forward Standing Safely, 5 inches Pick- Up Object From Floor Requires Assistance Look Behind Shoulder - Standing Supervision w/Turning Turning 360 Degrees Requires Assistance Unsupported Stance, Alternating Feet on Assist to Prevent Fall Stair Unsupported Tandem Stance Balance Lost- Step/Stand Unilateral Leg Stance Unable,assist to not fall Total Score Pruett Total Score (out of 56 points) 21 Pruett Impairment Rating 60 to 79% Impaired (Score 12- 22) PT-OP-E Functional Tests Start: 12/07/17 09:46 Freq: Status: Active Protocol: Document 01/13/18 11:19 LRN (Rec: 01/13/18 12:59 LRN [id number]) Functional Tests Timed Up and Go (TUG) Score 21 Comments 2 attempts to stand, almost crossed legs walking a few times. TUG Impairment Rating 100% Impaired (Score 20) PT-OP-G Mobility & Gait Start: 12/07/17 09:46 Freq: Status: Active Protocol: Document 12/07/17 10:39 LRN (Rec: 12/07/17 11:55 LRN [id number]) OP Mobility Evaluation Transfers Sit to Stand INdependent OP Gait Assessment Gait Gait Assistance Required: Independent Comments Gait Comments Decreased step length on the right. Increased trunk sway with gait and excessive lean to the right. Pt takes frequent standing rest stops due to fatigue. PT-OP-M Strength Start: 12/07/17 09:46 Freq: Status: Active Protocol: Document 12/07/17 10:39 LRN (Rec: 12/07/17 14:34 LRN [id number]) Trunk Strength Trunk Manual Muscle Testing Core Stabilization Pt not able to maintain a stable core with MMT of lower extremities. Comments Formal MMT deferred due to time constraints. Hip Strength Hip Manual Muscle Testing Right Flexion (L2) 5 Normal Left Flexion (L2) 5 Normal Knee Strength Knee Manual Muscle Testing Right Flexion (S2) 5 Normal Extension (L3) 3+ Fair+ Comments Pt had difficulty maintaining core stability. Left Flexion (S2) 5 Normal Extension (L3) 5 Normal Comments Pt had difficulty maintaining core stability. Ankle/Foot Strength Ankle and Foot Manual Muscle Testing Right Dorsiflexion (L4) 5 Normal Plantarflexion (S1) 5 Normal Left Dorsiflexion (L4) 5 Normal Plantarflexion (S1) 5 Normal PT-OP-O Vestibular Start: 12/07/17 09:46 Freq: Status: Active Protocol: Document 01/11/18 13:45 DCW (Rec: 01/11/18 15:41 DCW [id number]) Vestibular Assessment Screening Tests Vestibular Artery Screen Negative Auditory Tests Kc Test Negative Rinne Test Negative Air Conduction Results Equal Visual Testing Smooth Pursuits Horizontal Negative Smooth Pursuits Vertical Negative Saccades Horizontal Negative Gaze Evoked Nystagmus With Fixation Negative Gaze Evoked Nystagmus Without Fixation Negative Heave Test Negative Thrust Head Negative DVA (Line Degradation) 4 Head Shake Negative Positional Testing Dany-Hallpike Negative Left Negative Right Rolling Test Negative Left Negative Right PT-OP-Q Treatments Start: 12/07/17 09:46 Freq: Status: Active Protocol: Document 02/01/18 09:46 LRN (Rec: 02/01/18 13:30 LRN [id number]) Cardio Equipment Recumbent Elliptical ([employer]) Duration (Minutes) 9 Resistance 3 Seat Position 8 Therapeutic Exercises Standing Exercises Sit to stands Standing Exercise Name with focus on controlled descent Reps/Minutes 10x, 5x Comments Hands on lap 3 Standing Exercise Name Toe/Heel raises Side bilateral Reps/Minutes 10x3 1 Standing Exercise Name marching fwd/bkwd with hand hovering over bar Resistance Lev 1 T-Band above knees Equipment Used Bar Comments Holding and hovering with one hand Neuro Re-Education Treatment Balance Activities 4-6 Square lunging Details Lunges fwd, side, deep fwd Surface Level Equipment Blk/red squares on floor Comments Petr>CGA 3 Details side-stepping Surface firm Equipment in parallel bars Reps/Duration 4 laps Comments needs UE support for balance 2 Details Walking Surface Foam pad: Blue & Green Comments Petr > CGA for training of standing balance & for Quick reaction step outs for fall prevention. PT-OP-T Assessment and Plan Start: 12/07/17 09:46 Freq: Status: Active Protocol: Document 02/01/18 09:46 LRN (Rec: 02/01/18 13:30 LRN [id number]) Physical Therapy Assessment Progress Towards Goals Progress Towards Goals Slow Progress due to Activity Tolerance Progress Comments Less seated rest breaks d/t SOB, Assessment Summary Assessment Pt able to perform more sit to stands prior to fatigue. Good tolerance to ex with less sit rest breaks. Pt slow to step out reaction with potential LOB. Physical Therapy Plan Frequency and Duration Frequency of Treatment 2x/Week Duration of Treatment two months Plan of Care Start Date 01/11/18 Plan of Care End Date 03/13/18 Next Visit Focus/Plan Next Note Type Treatment Note Next Visit Plan Progress safety with gait w/o assist device, balance training, righting reactions, and core strengthening.
--- NOTE | 2018-02-07 12:13 | PT.OTN ---
Current Diagnoses Unspecified abnormalities of gait and mobility (02/07/18) Repeated falls (02/07/18) Weakness (02/07/18) Physical Therapy Treatment Note PT-OP-A Visit Information Start: 12/07/17 09:46 Freq: Status: Active Protocol: Document 02/07/18 12:09 EA (Rec: 02/07/18 12:12 EA [id number]) Out-Patient Physical Therapy Visit Information Visit Information Visit Type Treatment Note Visit Start Time 09:45 Visit Stop Time 10:25 Total Visit Minutes 45 Visit Number 12 Number of TOOLING MANAGER Visits 0 PT-OP-B Current Condition Start: 12/07/17 09:46 Freq: Status: Active Protocol: Document 12/07/17 10:39 LRN (Rec: 12/07/17 11:55 LRN [id number]) Current Condition History of Current Condition Onset Date Started Falling 6 months ago, feeling weak after first fall 6 months ago. Current Complaints Weakness, falling daily. Dizzy with turning resulting in falls. History of Current Condition Pt states that after her first fall she began to feel weak and has suffered repeated falls. She reports falling 1- 2 times per day and has had 2 very big falls in the past 6 months. Last fall occured 2 months ago. First fall was due to turning to stop her dog from running out of the house . Second fall from reaching to support self when feeling a loss of balance and missed, causing a fall. She thinks she might have had a stroke because she can't remember phone numbers anymore. PT lives with daughter, adopted son and his sister. PMH: R Partial knee arthroplasty 2 yrs ago. Prior Treatments and Tests MRI, said she didn't have a concussion. Treatment Goals Patient/Caregiver Goals Pt goal is to be stronger ( ankle, toes, feet) to keep her from falling. 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 Current Functional Impairments (Reported) Functional Limitations- ADL's Difficulty with laundry and removing clothes from dryer, and is not able to fix meals as often. Can was single dishes if she has things to hang onto. Functional Limitations- Mobility/Gait Safer using a cane for gait but doesn't like to. 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 Lives with daughter in one story home. Has 4 generations living together. Pt does not want to use a cane for gait. PT-OP-C Subjective Start: 12/07/17 09:46 Freq: Status: Active Protocol: Document 02/07/18 12:09 EA (Rec: 02/07/18 12:12 EA [id number]) OP-PT Subjective Patient Comments Patient Comments Pt reports no fall in the past few days; states able to walk safe with device. PT-OP-D Balance Start: 12/07/17 09:46 Freq: Status: Active Protocol: Document 01/21/18 10:01 SA (Rec: 01/21/18 10:19 SA [id number]) Pruett Balance Assessment Evaluation Sitting to Standing Ability Independent w/out Hands Unsupported Stance Supervision- 2 minutes Sitting Unsupported, Feet on Floor Safely- 2 minutes Standing to Sitting Ability Independent, Uncontrolled Transfer Ability Supervision, Verbal Cues Unsupported Stance- Eyes Closed Supervision, 10 seconds Unsupported Stance- Eyes Open Assist to attain,<15 secs Reaching Forward Standing Safely, 5 inches Pick- Up Object From Floor Requires Assistance Look Behind Shoulder - Standing Supervision w/Turning Turning 360 Degrees Requires Assistance Unsupported Stance, Alternating Feet on Assist to Prevent Fall Stair Unsupported Tandem Stance Balance Lost- Step/Stand Unilateral Leg Stance Unable,assist to not fall Total Score Pruett Total Score (out of 56 points) 21 Pruett Impairment Rating 60 to 79% Impaired (Score 12- 22) PT-OP-E Functional Tests Start: 12/07/17 09:46 Freq: Status: Active Protocol: Document 01/13/18 11:19 LRN (Rec: 01/13/18 12:59 LRN [id number]) Functional Tests Timed Up and Go (TUG) Score 21 Comments 2 attempts to stand, almost crossed legs walking a few times. TUG Impairment Rating 100% Impaired (Score 20) PT-OP-G Mobility & Gait Start: 12/07/17 09:46 Freq: Status: Active Protocol: Document 12/07/17 10:39 LRN (Rec: 12/07/17 11:55 LRN [id number]) OP Mobility Evaluation Transfers Sit to Stand INdependent OP Gait Assessment Gait Gait Assistance Required: Independent Comments Gait Comments Decreased step length on the right. Increased trunk sway with gait and excessive lean to the right. Pt takes frequent standing rest stops due to fatigue. PT-OP-M Strength Start: 12/07/17 09:46 Freq: Status: Active Protocol: Document 12/07/17 10:39 LRN (Rec: 12/07/17 14:34 LRN [id number]) Trunk Strength Trunk Manual Muscle Testing Core Stabilization Pt not able to maintain a stable core with MMT of lower extremities. Comments Formal MMT deferred due to time constraints. Hip Strength Hip Manual Muscle Testing Right Flexion (L2) 5 Normal Left Flexion (L2) 5 Normal Knee Strength Knee Manual Muscle Testing Right Flexion (S2) 5 Normal Extension (L3) 3+ Fair+ Comments Pt had difficulty maintaining core stability. Left Flexion (S2) 5 Normal Extension (L3) 5 Normal Comments Pt had difficulty maintaining core stability. Ankle/Foot Strength Ankle and Foot Manual Muscle Testing Right Dorsiflexion (L4) 5 Normal Plantarflexion (S1) 5 Normal Left Dorsiflexion (L4) 5 Normal Plantarflexion (S1) 5 Normal PT-OP-O Vestibular Start: 12/07/17 09:46 Freq: Status: Active Protocol: Document 01/11/18 13:45 DCW (Rec: 01/11/18 15:41 DCW [id number]) Vestibular Assessment Screening Tests Vestibular Artery Screen Negative Auditory Tests Kc Test Negative Rinne Test Negative Air Conduction Results Equal Visual Testing Smooth Pursuits Horizontal Negative Smooth Pursuits Vertical Negative Saccades Horizontal Negative Gaze Evoked Nystagmus With Fixation Negative Gaze Evoked Nystagmus Without Fixation Negative Heave Test Negative Thrust Head Negative DVA (Line Degradation) 4 Head Shake Negative Positional Testing Dany-Hallpike Negative Left Negative Right Rolling Test Negative Left Negative Right PT-OP-Q Treatments Start: 12/07/17 09:46 Freq: Status: Active Protocol: Document 02/07/18 12:09 EA (Rec: 02/07/18 12:12 EA [id number]) Cardio Equipment Recumbent Stepper (Sci-Fit) Duration (Minutes) 7 Resistance 2.5 Seat Position 12 Therapeutic Exercises Standing Exercises Sit to stands Standing Exercise Name with focus on controlled descent Reps/Minutes 10x, 5x Comments Hands on lap Trunk rotation Standing Exercise Name Wobble board // bars slight trunk rot w/ slight knee bending Reps/Minutes x 5 each side Comments CGA 3 Standing Exercise Name Toe/Heel raises Side bilateral Reps/Minutes 10x3 2 Standing Exercise Name wobble board with no HS: FWD Reps/Minutes 10' 1 Standing Exercise Name marching on foam with single hand support Resistance 2# AW Equipment Used Bar Comments Holding and hovering with one hand Neuro Re-Education Treatment Balance Activities 5 Details Tandem stance Comments // bars, arm raises as able: on blue foam 3 Details side-stepping Surface firm Equipment in parallel bars Reps/Duration 4 laps Comments needs UE support for balance 2 Details Walking Surface Foam pad: Blue & Green Comments Petr > CGA for training of standing balance & for Quick reaction step outs for fall prevention. 1 Details standing balance without UE support- EO, EC, head motions Surface firm Equipment in parallel bars Comments feet together: on foam PT-OP-T Assessment and Plan Start: 12/07/17 09:46 Freq: Status: Active Protocol: Document 02/07/18 12:09 RUSSEL (Rec: 02/07/18 12:12 EA [id number]) Physical Therapy Assessment Assessment Summary Assessment Noted improve static/dynamic balance today and with min SOB . Patient is progressing well. Physical Therapy Plan Next Visit Focus/Plan Next Note Type Treatment Note Next Visit Plan Progress safety with gait w/o assist device, balance training, righting reactions, and core strengthening.
--- NOTE | 2018-02-15 14:30 | PT.OTN ---
Current Diagnoses Unspecified abnormalities of gait and mobility (02/15/18) Repeated falls (02/15/18) Weakness (02/15/18) Physical Therapy Treatment Note PT-OP-A Visit Information Start: 12/07/17 09:46 Freq: Status: Active Protocol: Document 02/15/18 14:30 GGD (Rec: 02/16/18 16:15 GGD [email or web address]) Out-Patient Physical Therapy Visit Information Visit Information Visit Type Treatment Note Visit Start Time 14:30 Visit Stop Time 15:10 Total Visit Minutes 40 Visit Number 13 Number of SOFTWARE ASSET MANAGER Visits 1 Evaluation Information Evaluation Date 12/07/17 PT-OP-B Current Condition Start: 12/07/17 09:46 Freq: Status: Active Protocol: Document 12/07/17 10:39 LRN (Rec: 12/07/17 11:55 LRN [id number]) Current Condition History of Current Condition Onset Date Started Falling 6 months ago, feeling weak after first fall 6 months ago. Current Complaints Weakness, falling daily. Dizzy with turning resulting in falls. History of Current Condition Pt states that after her first fall she began to feel weak and has suffered repeated falls. She reports falling 1- 2 times per day and has had 2 very big falls in the past 6 months. Last fall occured 2 months ago. First fall was due to turning to stop her dog from running out of the house . Second fall from reaching to support self when feeling a loss of balance and missed, causing a fall. She thinks she might have had a stroke because she can't remember phone numbers anymore. PT lives with daughter, adopted son and his sister. PMH: R Partial knee arthroplasty 2 yrs ago. Prior Treatments and Tests MRI, said she didn't have a concussion. Treatment Goals Patient/Caregiver Goals Pt goal is to be stronger ( ankle, toes, feet) to keep her from falling. 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 Current Functional Impairments (Reported) Functional Limitations- ADL's Difficulty with laundry and removing clothes from dryer, and is not able to fix meals as often. Can was single dishes if she has things to hang onto. Functional Limitations- Mobility/Gait Safer using a cane for gait but doesn't like to. 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 Therapy/Recovery Has a 15 yr old adopted son, daughter is taking care of him currently. Lives with daughter in one story home. Has 4 generations living together. Pt does not want to use a cane for gait. PT-OP-C Subjective Start: 12/07/17 09:46 Freq: Status: Active Protocol: Document 02/15/18 14:30 GGD (Rec: 02/16/18 16:15 GGD [email or web address]) OP-PT Subjective Patient Comments Patient Comments Pt states she feeling stronger . PT-OP-D Balance Start: 12/07/17 09:46 Freq: Status: Active Protocol: Document 01/21/18 10:01 SA (Rec: 01/21/18 10:19 SA [email or web address]) [place] Balance Assessment Evaluation Sitting to Standing Ability Independent w/out Hands Unsupported Stance Supervision- 2 minutes Sitting Unsupported, Feet on Floor Safely- 2 minutes Standing to Sitting Ability Independent, Uncontrolled Transfer Ability Supervision, Verbal Cues Unsupported Stance- Eyes Closed Supervision, 10 seconds Unsupported Stance- Eyes Open Assist to attain,<15 secs Reaching Forward Standing Safely, 5 inches Pick- Up Object From Floor Requires Assistance Look Behind Shoulder - Standing Supervision w/Turning Turning 360 Degrees Requires Assistance Unsupported Stance, Alternating Feet on Assist to Prevent Fall Stair Unsupported Tandem Stance Balance Lost- Step/Stand Unilateral Leg Stance Unable,assist to not fall Total Score Sheridan Total Score (out of 56 points) 21 [place] Impairment Rating 60 to 79% Impaired (Score 12- 22) PT-OP-E Functional Tests Start: 12/07/17 09:46 Freq: Status: Active Protocol: Document 01/13/18 11:19 LRN (Rec: 01/13/18 12:59 LRN [id number]) Functional Tests Timed Up and Go (TUG) Score 21 Comments 2 attempts to stand, almost crossed legs walking a few times. TUG Impairment Rating 100% Impaired (Score 20) PT-OP-G Mobility & Gait Start: 12/07/17 09:46 Freq: Status: Active Protocol: Document 12/07/17 10:39 LRN (Rec: 12/07/17 11:55 LRN [id number]) OP Mobility Evaluation Transfers Sit to Stand INdependent OP Gait Assessment Gait Gait Assistance Required: Independent Comments Gait Comments Decreased step length on the right. Increased trunk sway with gait and excessive lean to the right. Pt takes frequent standing rest stops due to fatigue. PT-OP-M Strength Start: 12/07/17 09:46 Freq: Status: Active Protocol: Document 12/07/17 10:39 LRN (Rec: 12/07/17 14:34 LRN [id number]) Trunk Strength Trunk Manual Muscle Testing Core Stabilization Pt not able to maintain a stable core with MMT of lower extremities. Comments Formal MMT deferred due to time constraints. Hip Strength Hip Manual Muscle Testing Right Flexion (L2) 5 Normal Left Flexion (L2) 5 Normal Knee Strength Knee Manual Muscle Testing Right Flexion (S2) 5 Normal Extension (L3) 3+ Fair+ Comments Pt had difficulty maintaining core stability. Left Flexion (S2) 5 Normal Extension (L3) 5 Normal Comments Pt had difficulty maintaining core stability. Ankle/Foot Strength Ankle and Foot Manual Muscle Testing Right Dorsiflexion (L4) 5 Normal Plantarflexion (S1) 5 Normal Left Dorsiflexion (L4) 5 Normal Plantarflexion (S1) 5 Normal PT-OP-O Vestibular Start: 12/07/17 09:46 Freq: Status: Active Protocol: Document 01/11/18 13:45 DCW (Rec: 01/11/18 15:41 DCW [id number]) Vestibular Assessment Screening Tests Vestibular Artery Screen Negative Auditory Tests Kc Test Negative Rinne Test Negative Air Conduction Results Equal Visual Testing Smooth Pursuits Horizontal Negative Smooth Pursuits Vertical Negative Saccades Horizontal Negative Gaze Evoked Nystagmus With Fixation Negative Gaze Evoked Nystagmus Without Fixation Negative Heave Test Negative Thrust Head Negative DVA (Line Degradation) 4 Head Shake Negative Positional Testing Dany-Hallpike Negative Left Negative Right Rolling Test Negative Left Negative Right PT-OP-Q Treatments Start: 12/07/17 09:46 Freq: Status: Active Protocol: Document 02/15/18 14:30 GGD (Rec: 02/16/18 16:15 GGD [email or web address]) Cardio Equipment Recumbent Stepper (Sci-Fit) Duration (Minutes) 7 Resistance 2.5 Seat Position 12 Gym Equipment Shuttle Balance 1 Details blue Comments WBOS, NBOS E/O and head turns. Therapeutic Exercises Standing Exercises 4 Standing Exercise Name hip extension Side bilateral Resistance 2 Reps/Minutes 10 Sit to stands Standing Exercise Name with focus on controlled descent Reps/Minutes 10x, 5x Comments Hands on lap, table 3 Standing Exercise Name Toe/Heel raises Side bilateral Reps/Minutes 10x3 1 Standing Exercise Name marching on foam with single hand support Resistance 2# AW Equipment Used Bar Comments Holding and hovering with one hand Neuro Re-Education Treatment Balance Activities 5 Details Tandem stance Comments // bars, arm raises as able: on blue foam 3 Details side-stepping Surface firm Equipment in parallel bars Reps/Duration 4 laps Comments needs UE support for balance 2# ankle weights 2 Details Walking Surface Foam pad: Blue & Green 1 Details standing balance without UE support- EO, EC, head motions Surface firm and blue Equipment in parallel bars Comments feet together: on foam PT-OP-T Assessment and Plan Start: 12/07/17 09:46 Freq: Status: Active Protocol: Document 02/15/18 14:30 GGD (Rec: 02/16/18 16:15 GGD [email or web address]) Physical Therapy Assessment Goals Three Impairment Pt lacks appropriate HEP. Short Term Goal (STG) Pt will be educated in an initial HEP of core, hip and balance ex's. STG Duration 02/14/18 Oral Surgery Technician Goal (LTG) Pt will be independent in a HEP. LTG Duration 03/08/18 Two Impairment Decreased core strength. Jail Goal (LTG) Pt able to maintain core stability with use of LE's and report a decrease in frequency of falls. LTG Duration 03/08/18 1 Impairment Decreased balance per SHEIRDAN score of 21/56 (>35 safe ambulation with AD). Oral Surgery Technician Goal (LTG) Pt will improve SHERIDAN score to 35 and will demonstrate improved safety with gait ( able to turn with minimal loss of balance). LTG Duration 03/08/18 Assessment Summary Assessment Pt improving with balance and able to progress activity. She need cues for sit to stand technique. she had good tolerance to exercise. Physical Therapy Plan Frequency and Duration Frequency of Treatment 2x/Week Duration of Treatment two months Plan of Care Start Date 01/11/18 Plan of Care End Date 03/13/18 Next Visit Focus/Plan Next Note Type Treatment Note Next Visit Plan Progress safety with gait, balance training, and strengthening.
--- NOTE | 2018-03-01 16:56 | PT.OTN ---
Current Diagnoses Unspecified abnormalities of gait and mobility (02/15/18) Repeated falls (02/15/18) Weakness (02/15/18) Physical Therapy Treatment Note PT-OP-A Visit Information Start: 12/07/17 09:46 Freq: Status: Active Protocol: Document 02/15/18 14:30 GGD (Rec: 02/16/18 16:15 GGD [email or web address]) Out-Patient Physical Therapy Visit Information Visit Information Visit Type Treatment Note Visit Start Time 14:30 Visit Stop Time 15:10 Total Visit Minutes 40 Visit Number 13 Number of ARCHITECTURE CONSULTANT Visits 1 Evaluation Information Evaluation Date 12/07/17 PT-OP-B Current Condition Start: 12/07/17 09:46 Freq: Status: Active Protocol: Document 12/07/17 10:39 LRN (Rec: 12/07/17 11:55 LRN [id number]) Current Condition History of Current Condition Onset Date Started Falling 6 months ago, feeling weak after first fall 6 months ago. Current Complaints Weakness, falling daily. Dizzy with turning resulting in falls. History of Current Condition Pt states that after her first fall she began to feel weak and has suffered repeated falls. She reports falling 1- 2 times per day and has had 2 very big falls in the past 6 months. Last fall occured 2 months ago. First fall was due to turning to stop her dog from running out of the house . Second fall from reaching to support self when feeling a loss of balance and missed, causing a fall. She thinks she might have had a stroke because she can't remember phone numbers anymore. PT lives with daughter, adopted son and his sister. PMH: R Partial knee arthroplasty 2 yrs ago. Prior Treatments and Tests MRI, said she didn't have a concussion. Treatment Goals Patient/Caregiver Goals Pt goal is to be stronger ( ankle, toes, feet) to keep her from falling. 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 Current Functional Impairments (Reported) Functional Limitations- ADL's Difficulty with laundry and removing clothes from dryer, and is not able to fix meals as often. Can was single dishes if she has things to hang onto. Functional Limitations- Mobility/Gait Safer using a cane for gait but doesn't like to. 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 Therapy/Recovery Has a 15 yr old adopted son, daughter is taking care of him currently. Lives with daughter in one story home. Has 4 generations living together. Pt does not want to use a cane for gait. PT-OP-C Subjective Start: 12/07/17 09:46 Freq: Status: Active Protocol: Document 03/01/18 16:55 EA (Rec: 03/01/18 16:56 EA [id number]) OP-PT Subjective Patient Comments Patient Comments Pt reports unable to call and come due to family emergency; states her in the hospital. Pt also wants to continue her PT treatment; states she will call for scheduling. Patient Reported Progress Improving PT-OP-D Balance Start: 12/07/17 09:46 Freq: Status: Active Protocol: Document 01/21/18 10:01 SA (Rec: 01/21/18 10:19 SA [email or web address]) [place] Balance Assessment Evaluation Sitting to Standing Ability Independent w/out Hands Unsupported Stance Supervision- 2 minutes Sitting Unsupported, Feet on Floor Safely- 2 minutes Standing to Sitting Ability Independent, Uncontrolled Transfer Ability Supervision, Verbal Cues Unsupported Stance- Eyes Closed Supervision, 10 seconds Unsupported Stance- Eyes Open Assist to attain,<15 secs Reaching Forward Standing Safely, 5 inches Pick- Up Object From Floor Requires Assistance Look Behind Shoulder - Standing Supervision w/Turning Turning 360 Degrees Requires Assistance Unsupported Stance, Alternating Feet on Assist to Prevent Fall Stair Unsupported Tandem Stance Balance Lost- Step/Stand Unilateral Leg Stance Unable,assist to not fall Total Score [place] Total Score (out of 56 points) 21 [place] Impairment Rating 60 to 79% Impaired (Score 12- 22) PT-OP-E Functional Tests Start: 12/07/17 09:46 Freq: Status: Active Protocol: Document 01/13/18 11:19 LRN (Rec: 01/13/18 12:59 LRN [id number]) Functional Tests Timed Up and Go (TUG) Score 21 Comments 2 attempts to stand, almost crossed legs walking a few times. TUG Impairment Rating 100% Impaired (Score 20) PT-OP-G Mobility & Gait Start: 12/07/17 09:46 Freq: Status: Active Protocol: Document 12/07/17 10:39 LRN (Rec: 12/07/17 11:55 LRN [id number]) OP Mobility Evaluation Transfers Sit to Stand INdependent OP Gait Assessment Gait Gait Assistance Required: Independent Comments Gait Comments Decreased step length on the right. Increased trunk sway with gait and excessive lean to the right. Pt takes frequent standing rest stops due to fatigue. PT-OP-M Strength Start: 12/07/17 09:46 Freq: Status: Active Protocol: Document 12/07/17 10:39 LRN (Rec: 12/07/17 14:34 LRN [id number]) Trunk Strength Trunk Manual Muscle Testing Core Stabilization Pt not able to maintain a stable core with MMT of lower extremities. Comments Formal MMT deferred due to time constraints. Hip Strength Hip Manual Muscle Testing Right Flexion (L2) 5 Normal Left Flexion (L2) 5 Normal Knee Strength Knee Manual Muscle Testing Right Flexion (S2) 5 Normal Extension (L3) 3+ Fair+ Comments Pt had difficulty maintaining core stability. Left Flexion (S2) 5 Normal Extension (L3) 5 Normal Comments Pt had difficulty maintaining core stability. Ankle/Foot Strength Ankle and Foot Manual Muscle Testing Right Dorsiflexion (L4) 5 Normal Plantarflexion (S1) 5 Normal Left Dorsiflexion (L4) 5 Normal Plantarflexion (S1) 5 Normal PT-OP-O Vestibular Start: 12/07/17 09:46 Freq: Status: Active Protocol: Document 01/11/18 13:45 DCW (Rec: 01/11/18 15:41 DCW [id number]) Vestibular Assessment Screening Tests Vestibular Artery Screen Negative Auditory Tests Kc Test Negative Rinne Test Negative Air Conduction Results Equal Visual Testing Smooth Pursuits Horizontal Negative Smooth Pursuits Vertical Negative Saccades Horizontal Negative Gaze Evoked Nystagmus With Fixation Negative Gaze Evoked Nystagmus Without Fixation Negative Heave Test Negative Thrust Head Negative DVA (Line Degradation) 4 Head Shake Negative Positional Testing Orwell-Hallpike Negative Left Negative Right Rolling Test Negative Left Negative Right PT-OP-Q Treatments Start: 12/07/17 09:46 Freq: Status: Active Protocol: Document 02/15/18 14:30 GGD (Rec: 02/16/18 16:15 GGD [email or web address]) Cardio Equipment Recumbent Stepper (Sci-Fit) Duration (Minutes) 7 Resistance 2.5 Seat Position 12 Gym Equipment Shuttle Balance 1 Details blue Comments WBOS, NBOS E/O and head turns. Therapeutic Exercises Standing Exercises 4 Standing Exercise Name hip extension Side bilateral Resistance 2 Reps/Minutes 10 Sit to stands Standing Exercise Name with focus on controlled descent Reps/Minutes 10x, 5x Comments Hands on lap 3 Standing Exercise Name Toe/Heel raises Side bilateral Reps/Minutes 10x3 1 Standing Exercise Name marching on foam with single hand support Resistance 2# AW Equipment Used Bar Comments Holding and hovering with one hand Neuro Re-Education Treatment Balance Activities 5 Details Tandem stance Comments // bars, arm raises as able: on blue foam 3 Details side-stepping Surface firm Equipment in parallel bars Reps/Duration 4 laps Comments needs UE support for balance 2# ankle weights 2 Details Walking Surface Foam pad: Blue & Green 1 Details standing balance without UE support- EO, EC, head motions Surface firm Equipment in parallel bars Comments feet together: on foam PT-OP-T Assessment and Plan Start: 12/07/17 09:46 Freq: Status: Active Protocol: Document 02/15/18 14:30 GGD (Rec: 02/16/18 16:15 GGD [email or web address]) Physical Therapy Assessment Goals Three Impairment Pt lacks appropriate HEP. Short Term Goal (STG) Pt will be educated in an initial HEP of core, hip and balance ex's. STG Duration 02/14/18 Rotary Driller Prospecting Goal (LTG) Pt will be independent in a HEP. LTG Duration 03/08/18 Two Impairment Decreased core strength. Senior Care Goal (LTG) Pt able to maintain core stability with use of LE's and report a decrease in frequency of falls. LTG Duration 03/08/18 1 Impairment Decreased balance per SHERIDAN score of 21/56 (>35 safe ambulation with AD). Senior Care Goal (LTG) Pt will improve SHERIDAN score to 35 and will demonstrate improved safety with gait ( able to turn with minimal loss of balance). LTG Duration 03/08/18 Assessment Summary Assessment Pt improving with balance and able to progress activity. She need cues for sit to stand technique. she had good tolerance to exercise. Physical Therapy Plan Frequency and Duration Frequency of Treatment 2x/Week Duration of Treatment two months Plan of Care Start Date 01/11/18 Plan of Care End Date 03/13/18 Next Visit Focus/Plan Next Note Type Treatment Note Next Visit Plan Progress safety with gait, balance training, and strengthening.
--- NOTE | 2018-03-08 10:35 | PT.OTN ---
Current Diagnoses Unspecified abnormalities of gait and mobility (03/08/18) Repeated falls (03/08/18) Weakness (03/08/18) Physical Therapy Treatment Note PT-OP-A Visit Information Start: 12/07/17 09:46 Freq: Status: Active Protocol: Document 03/08/18 09:53 EA (Rec: 03/08/18 10:29 EA [id number]) Out-Patient Physical Therapy Visit Information Visit Information Visit Type Treatment Note Visit Start Time 09:45 Visit Stop Time 10:25 Total Visit Minutes 45 Visit Number 13 Number of MASTER PRINTER Visits 0 PT-OP-B Current Condition Start: 12/07/17 09:46 Freq: Status: Active Protocol: Document 12/07/17 10:39 LRN (Rec: 12/07/17 11:55 LRN [id number]) Current Condition History of Current Condition Onset Date Started Falling 6 months ago, feeling weak after first fall 6 months ago. Current Complaints Weakness, falling daily. Dizzy with turning resulting in falls. History of Current Condition Pt states that after her first fall she began to feel weak and has suffered repeated falls. She reports falling 1- 2 times per day and has had 2 very big falls in the past 6 months. Last fall occured 2 months ago. First fall was due to turning to stop her dog from running out of the house . Second fall from reaching to support self when feeling a loss of balance and missed, causing a fall. She thinks she might have had a stroke because she can't remember phone numbers anymore. PT lives with daughter, adopted son and his sister. PMH: R Partial knee arthroplasty 2 yrs ago. Prior Treatments and Tests MRI, said she didn't have a concussion. Treatment Goals Patient/Caregiver Goals Pt goal is to be stronger ( ankle, toes, feet) to keep her from falling. 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 Current Functional Impairments (Reported) Functional Limitations- ADL's Difficulty with laundry and removing clothes from dryer, and is not able to fix meals as often. Can was single dishes if she has things to hang onto. Functional Limitations- Mobility/Gait Safer using a cane for gait but doesn't like to. 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 Therapy/Recovery Has a 15 yr old adopted son, daughter is taking care of him currently. Lives with daughter in one story home. Has 4 generations living together. Pt does not want to use a cane for gait. PT-OP-C Subjective Start: 12/07/17 09:46 Freq: Status: Active Protocol: Document 03/08/18 09:53 EA (Rec: 03/08/18 10:29 EA [id number]) OP-PT Subjective Patient Comments Patient Comments Pt reports able to perform some HEP; states no fall in the past weeks; states did a lot of walking. Patient Reported Progress Improving PT-OP-D Balance Start: 12/07/17 09:46 Freq: Status: Active Protocol: Document 01/21/18 10:01 SA (Rec: 01/21/18 10:19 SA [id number]) Pruett Balance Assessment Evaluation Sitting to Standing Ability Independent w/out Hands Unsupported Stance Supervision- 2 minutes Sitting Unsupported, Feet on Floor Safely- 2 minutes Standing to Sitting Ability Independent, Uncontrolled Transfer Ability Supervision, Verbal Cues Unsupported Stance- Eyes Closed Supervision, 10 seconds Unsupported Stance- Eyes Open Assist to attain,<15 secs Reaching Forward Standing Safely, 5 inches Pick- Up Object From Floor Requires Assistance Look Behind Shoulder - Standing Supervision w/Turning Turning 360 Degrees Requires Assistance Unsupported Stance, Alternating Feet on Assist to Prevent Fall Stair Unsupported Tandem Stance Balance Lost- Step/Stand Unilateral Leg Stance Unable,assist to not fall Total Score Pruett Total Score (out of 56 points) 21 P[place]ett Impairment Rating 60 to 79% Impaired (Score 12- 22) PT-OP-E Functional Tests Start: 12/07/17 09:46 Freq: Status: Active Protocol: Document 01/13/18 11:19 LRN (Rec: 01/13/18 12:59 LRN [id number]) Functional Tests Timed Up and Go (TUG) Score 21 Comments 2 attempts to stand, almost crossed legs walking a few times. TUG Impairment Rating 100% Impaired (Score 20) PT-OP-G Mobility & Gait Start: 12/07/17 09:46 Freq: Status: Active Protocol: Document 12/07/17 10:39 LRN (Rec: 12/07/17 11:55 LRN [id number]) OP Mobility Evaluation Transfers Sit to Stand INdependent OP Gait Assessment Gait Gait Assistance Required: Independent Comments Gait Comments Decreased step length on the right. Increased trunk sway with gait and excessive lean to the right. Pt takes frequent standing rest stops due to fatigue. PT-OP-M Strength Start: 12/07/17 09:46 Freq: Status: Active Protocol: Document 12/07/17 10:39 LRN (Rec: 12/07/17 14:34 LRN [id number]) Trunk Strength Trunk Manual Muscle Testing Core Stabilization Pt not able to maintain a stable core with MMT of lower extremities. Comments Formal MMT deferred due to time constraints. Hip Strength Hip Manual Muscle Testing Right Flexion (L2) 5 Normal Left Flexion (L2) 5 Normal Knee Strength Knee Manual Muscle Testing Right Flexion (S2) 5 Normal Extension (L3) 3+ Fair+ Comments Pt had difficulty maintaining core stability. Left Flexion (S2) 5 Normal Extension (L3) 5 Normal Comments Pt had difficulty maintaining core stability. Ankle/Foot Strength Ankle and Foot Manual Muscle Testing Right Dorsiflexion (L4) 5 Normal Plantarflexion (S1) 5 Normal Left Dorsiflexion (L4) 5 Normal Plantarflexion (S1) 5 Normal PT-OP-O Vestibular Start: 12/07/17 09:46 Freq: Status: Active Protocol: Document 01/11/18 13:45 DCW (Rec: 01/11/18 15:41 DCW [id number]) Vestibular Assessment Screening Tests Vestibular Artery Screen Negative Auditory Tests Kc Test Negative Rinne Test Negative Air Conduction Results Equal Visual Testing Smooth Pursuits Horizontal Negative Smooth Pursuits Vertical Negative Saccades Horizontal Negative Gaze Evoked Nystagmus With Fixation Negative Gaze Evoked Nystagmus Without Fixation Negative Heave Test Negative Thrust Head Negative DVA (Line Degradation) 4 Head Shake Negative Positional Testing [place]-Hallpike Negative Left Negative Right Rolling Test Negative Left Negative Right PT-OP-Q Treatments Start: 12/07/17 09:46 Freq: Status: Active Protocol: Document 03/08/18 09:53 EA (Rec: 03/08/18 10:29 EA [id number]) Cardio Equipment Recumbent Elliptical ([employer]) Duration (Minutes) 9 Resistance 3 Seat Position 8 Therapeutic Exercises Standing Exercises Sit to stands Standing Exercise Name with focus on controlled descent Reps/Minutes 10x, 3 sets Comments Hands on lap 3 Standing Exercise Name Toe/Heel raises Side bilateral Reps/Minutes 10x3 1 Standing Exercise Name marching on foam with single hand support Resistance 2# AW Equipment Used Bar Comments Holding and hovering with one hand Neuro Re-Education Treatment Balance Activities 4-6 Square lunging Details wobble board A/P Comments CGA 5 Details Tandem stance Comments // bars, arm raises as able: on blue foam 3 Details side-stepping Surface firm Equipment in parallel bars Reps/Duration 4 laps Comments needs UE support for balance 2# ankle weights 2 Details Obstacle/hudle Reps/Duration x 4 lines Comments CGA: step to 1 Details standing balance without UE support- EO, EC, head motions Surface firm Equipment in parallel bars Comments feet together: on foam PT-OP-T Assessment and Plan Start: 12/07/17 09:46 Freq: Status: Active Protocol: Document 03/08/18 09:53 EA (Rec: 03/08/18 10:29 EA [id number]) Physical Therapy Assessment Assessment Summary Assessment Tolerated treatment but requires frequent rest due to SOB. Noted static balance improvement. Patient cont. to progress. Physical Therapy Plan Next Visit Focus/Plan Next Note Type Re-Evaluation Next Visit Plan Progress safety with gait, balance training, and strengthening.
--- NOTE | 2018-03-18 14:39 | PT.OPDS ---
Current Diagnoses Unspecified abnormalities of gait and mobility (03/08/18) Repeated falls (03/08/18) Weakness (03/08/18) Provider Visit Care Team Role Provider Type Sarah De Dios DO Family Provider Physician Specialty: [facility] Address: [address] [place], [place] [id number] Email: [email or web address] Pierre Chung MD Attending Provider Physician Primary Care Provider Specialty: [facility] Address: [address] [place], [place] [id number] Email: [email or web address] Visit Number Visit Number 13 Discharge Summary PT-OP-B Current Condition Start: 12/07/17 09:46 Freq: Status: Active Protocol: Document 12/07/17 10:39 LRN (Rec: 12/07/17 11:55 LRN [id number]) Current Condition History of Current Condition Onset Date Started Falling 6 months ago, feeling weak after first fall 6 months ago. Current Complaints Weakness, falling daily. Dizzy with turning resulting in falls. History of Current Condition Pt states that after her first fall she began to feel weak and has suffered repeated falls. She reports falling 1- 2 times per day and has had 2 very big falls in the past 6 months. Last fall occured 2 months ago. First fall was due to turning to stop her dog from running out of the house . Second fall from reaching to support self when feeling a loss of balance and missed, causing a fall. She thinks she might have had a stroke because she can't remember phone numbers anymore. PT lives with daughter, adopted son and his sister. PMH: R Partial knee arthroplasty 2 yrs ago. Prior Treatments and Tests MRI, said she didn't have a concussion. Treatment Goals Patient/Caregiver Goals Pt goal is to be stronger ( ankle, toes, feet) to keep her from falling. 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 Current Functional Impairments (Reported) Functional Limitations- ADL's Difficulty with laundry and removing clothes from dryer, and is not able to fix meals as often. Can was single dishes if she has things to hang onto. Functional Limitations- Mobility/Gait Safer using a cane for gait but doesn't like to. 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 Lives with daughter in one story home. Has 4 generations living together. Pt does not want to use a cane for gait. PT-OP-C Subjective Start: 12/07/17 09:46 Freq: Status: Active Protocol: Document 03/08/18 09:53 EA (Rec: 03/08/18 10:29 EA [id number]) OP-PT Subjective Patient Comments Patient Comments Pt reports able to perform some HEP; states no fall in the past weeks; states did a lot of walking. Patient Reported Progress Improving PT-OP-D Balance Start: 12/07/17 09:46 Freq: Status: Active Protocol: Document 01/21/18 10:01 SA (Rec: 01/21/18 10:19 SA [id number]) Pruett Balance Assessment Evaluation Sitting to Standing Ability Independent w/out Hands Unsupported Stance Supervision- 2 minutes Sitting Unsupported, Feet on Floor Safely- 2 minutes Standing to Sitting Ability Independent, Uncontrolled Transfer Ability Supervision, Verbal Cues Unsupported Stance- Eyes Closed Supervision, 10 seconds Unsupported Stance- Eyes Open Assist to attain,<15 secs Reaching Forward Standing Safely, 5 inches Pick- Up Object From Floor Requires Assistance Look Behind Shoulder - Standing Supervision w/Turning Turning 360 Degrees Requires Assistance Unsupported Stance, Alternating Feet on Assist to Prevent Fall Stair Unsupported Tandem Stance Balance Lost- Step/Stand Unilateral Leg Stance Unable,assist to not fall Total Score Pruett Total Score (out of 56 points) 21 P[place]ett Impairment Rating 60 to 79% Impaired (Score 12- 22) PT-OP-E Functional Tests Start: 12/07/17 09:46 Freq: Status: Active Protocol: Document 01/13/18 11:19 LRN (Rec: 01/13/18 12:59 LRN [id number]) Functional Tests Timed Up and Go (TUG) Score 21 Comments 2 attempts to stand, almost crossed legs walking a few times. TUG Impairment Rating 100% Impaired (Score 20) PT-OP-G Mobility & Gait Start: 12/07/17 09:46 Freq: Status: Active Protocol: Document 12/07/17 10:39 LRN (Rec: 12/07/17 11:55 LRN [id number]) OP Mobility Evaluation Transfers Sit to Stand INdependent OP Gait Assessment Gait Gait Assistance Required: Independent Comments Gait Comments Decreased step length on the right. Increased trunk sway with gait and excessive lean to the right. Pt takes frequent standing rest stops due to fatigue. PT-OP-M Strength Start: 12/07/17 09:46 Freq: Status: Active Protocol: Document 12/07/17 10:39 LRN (Rec: 12/07/17 14:34 LRN [id number]) Trunk Strength Trunk Manual Muscle Testing Core Stabilization Pt not able to maintain a stable core with MMT of lower extremities. Comments Formal MMT deferred due to time constraints. Hip Strength Hip Manual Muscle Testing Right Flexion (L2) 5 Normal Left Flexion (L2) 5 Normal Knee Strength Knee Manual Muscle Testing Right Flexion (S2) 5 Normal Extension (L3) 3+ Fair+ Comments Pt had difficulty maintaining core stability. Left Flexion (S2) 5 Normal Extension (L3) 5 Normal Comments Pt had difficulty maintaining core stability. Ankle/Foot Strength Ankle and Foot Manual Muscle Testing Right Dorsiflexion (L4) 5 Normal Plantarflexion (S1) 5 Normal Left Dorsiflexion (L4) 5 Normal Plantarflexion (S1) 5 Normal PT-OP-O Vestibular Start: 12/07/17 09:46 Freq: Status: Active Protocol: Document 01/11/18 13:45 DCW (Rec: 01/11/18 15:41 DCW [id number]) Vestibular Assessment Screening Tests Vestibular Artery Screen Negative Auditory Tests Kc Test Negative Rinne Test Negative Air Conduction Results Equal Visual Testing Smooth Pursuits Horizontal Negative Smooth Pursuits Vertical Negative Saccades Horizontal Negative Gaze Evoked Nystagmus With Fixation Negative Gaze Evoked Nystagmus Without Fixation Negative Heave Test Negative Thrust Head Negative DVA (Line Degradation) 4 Head Shake Negative Positional Testing [place]-Hallpike Negative Left Negative Right Rolling Test Negative Left Negative Right PT-OP-T Assessment and Plan Start: 12/07/17 09:46 Freq: Status: Active Protocol: Document 03/18/18 14:38 SAK (Rec: 03/18/18 14:39 SAK [id number]) Physical Therapy Plan Discharge Physical Therapy Discharge Reasons Patient Request Discharge Comments Due to medical issues. May benefit from further PT in the future when medical issues stabilized and able to attend PT regularly again.
== END 2018-05-03 16:27 ==
LOC: PHYS 09:45
PROVIDERS: Family Provider Family Medicine; PCP Family Medicine; Visit Provider Family Medicine
DX: R53.1 Weakness (principal); R29.6 Repeated falls; R26.9 Unspecified abnormalities of gait and mobility
CPT/HCPCS: 97010; 97110; 97112; 97140; 97162

== ENCOUNTER → 2018-04-07 15:14 | Outpatient (CLI) | payer MEDICARE, SELFPAY ==
[2018-04-07 16:23] LABS: BUN Creatinine Ratio 21.1 (6-22); Blood Urea Nitrogen 19 mg/dL (7-17); Calcium 11.1 mg/dL (8.4-10.2); Carbon Dioxide 27 mmol/L (22-32); Chloride 103 mmol/L (98-107); Estimated Glomerular Filt Rate > 60.0 mL/min (>60); Glucose 143 mg/dL (80-110); HEMOLYSIS 18 (0-50); Potassium 4.4 mmol/L (3.4-5.1); Sodium 141 mmol/L (137-145)
[2018-04-07 16:41] LABS: Hemoglobin A1C% w Est Avg Glu 7.8 % (4.0-6.0)
== END ==
PROVIDERS: PCP Family Medicine; Visit Provider Family Medicine
DX: E11.9 Type 2 diabetes mellitus without complications (principal)
CPT/HCPCS: 36415; 80048; 83036

== ENCOUNTER 2018-05-13 16:14 | Emergency (ER) | payer MEDICARE, SELFPAY ==
[2018-05-13 16:32] VITALS: BP 153/86; PULSE 86; RESP 20; TEMP 36.4; O2SAT 95; BMI 36.7
--- NOTE | 2018-05-13 17:07 | ED.EXTPRO ---
HPI - Extremity Problem <Paz Martins PA-C - Last Filed: 05/13/18 21:50> General Chief complaint: Extremity Problem,Nontraumatic Stated complaint: Back pain Time Seen by Provider: 05/13/18 17:07 Source: patient Mode of arrival: ambulatory Limitations: no limitations History of Present Illness HPI Narrative: This 82-year-old female comes in due to right hip pain for the last couple of weeks. She thinks gradually somewhat worse. She denies any trauma or recent falls. She describes the pain as an ache in the side and posterior hip. She states pain does not radiate into the leg or foot. She denies any acute weakness or paresthesia in her lower extremities. No groin numbness. No change in bladder function. She states that she had a bowel movement 3 days ago and then today when she normally goes every day, and had to strain warm. She has not had any recent illness or fever. She has not noted any rashes. Noted by her PCP to have a gait abnormality and she states that she walks with a wide-based gait to help her balance. She does have a history of arthritis in her knees and is status post right TKR 2 years ago. Does not know about any arthritis or other problem with her hip. She states she took a total of 6 ibuprofen at home today. Who has been taking not intermittently and does think that it helps the pain somewhat. Related Data Home Medications Medication Instructions Recorded Confirmed donepezil 5 mg PO BEDTIME 05/13/18 05/13/18 levothyroxine 50 mcg PO DAILY 05/13/18 05/13/18 losartan 100 mg PO QPM 05/13/18 05/13/18 lovastatin 20 mg PO QPM 05/13/18 05/13/18 Previous Rx's Medication Instructions Recorded miscellaneous medical supply misc #1 each 12/13/17 blood sugar diagnostic strips #100 each 02/01/18 estradiol 1 mg tablet 1 mg PO QAM #90 tab 02/09/18 furosemide 20 mg tablet 20 mg PO QAM #90 tab 02/09/18 glyburide 5 mg tablet 5 mg PO BID #180 tab 04/13/18 insulin syringe with safety needle #500 each 04/13/18 0.5 mL 29 gauge x 1/2 metformin 1,000 mg tablet 1,000 mg PO BIDCC #180 tab 04/21/18 insulin glargine (U-100) 100 30 unit SUBCUT DAILY #15 ml 05/04/18 unit/mL (3 mL) subcutaneous pen Allergies Allergy/AdvReac Type Severity Reaction Status Date / Time penicillin G [PENICILLIN G] Allergy Mild Verified 05/13/18 16:32 Review of Systems <Paz Martins PA-C - Last Filed: 05/13/18 21:50> Review of Systems ROS Unobtainable: All systems reviewed & are unremarkable except as noted in HPI and below PFSH <Paz Martins PA-C - Last Filed: 05/13/18 21:50> Medical History Cataract (Chronic ~2014) Diabetes mellitus (Chronic ~1996) Eczema (Chronic ~2013) Foot pain (Chronic ~1962) Fractures (Chronic ~1962) Hepatitis C (Chronic ~1948) Surgical History Anesthesia (Resolved) Personal history of spine surgery (Resolved ~2003) Personal history of spine surgery (Resolved ~2005) Family History Brother No problems noted. Father No problems noted. Mother No problems noted. Social History Smoking Status: Never smoker Family History Brother No problems noted. Father No problems noted. Mother No problems noted. Social History Smoking Status: Never smoker Exam <Paz Martins PA-C - Last Filed: 05/13/18 21:50> Narrative Exam Narrative: GENERAL APPEARANCE: Patient sitting comfortably, in no distress. PULMONARY: Lungs clear to auscultation bilaterally CV: Regular rhythm regular without murmur, normal S1 and S2, no S3 or S4 MUSCULOSKELETAL: No point tenderness over the lumbar spine. Some tenderness over the left SI joint, none elsewhere over the hip. No tenderness with seated trunk range of motion. She has full hip flexion with some intermittent tenderness on active flexion. Some tenderness with full forced inversion. No other tenderness on passive range of motion. Negative Vidal's test EXTREMITIES: No edema or cyanosis, no calf tenderness Initial Vital Signs Initial Vital Signs: Vital Signs Temperature 97.5 F L 05/13/18 16:32 Pulse Rate 86 05/13/18 16:32 Respiratory Rate 20 05/13/18 16:32 Blood Pressure 153/86 H 05/13/18 16:32 Pulse Oximetry 95 05/13/18 16:32 <DO Robbie Braga Last Filed: 05/14/18 07:37> Initial Vital Signs Initial Vital Signs: Vital Signs Temperature 97.5 F L 05/13/18 16:32 Pulse Rate 86 05/13/18 16:32 Respiratory Rate 20 05/13/18 16:32 Blood Pressure 153/86 H 05/13/18 16:32 Pulse Oximetry 95 05/13/18 16:32 Course <GREYSON Albert Last Filed: 05/13/18 21:50> Orders Ordered: Discontinued Medications Acetaminophen (Tylenol) 650 mg PO NOW ONE Stop: 05/13/18 17:28 Last Admin: 05/13/18 17:50 Dose: 650 mg Vital Signs - 8 hr 05/13/18 16:32 05/13/18 19:07 05/13/18 19:30 Temperature 97.5 F L Pulse Rate 86 73 73 Respiratory Rate 20 20 20 Blood Pressure 153/86 H 167/76 H Blood Pressure [Right Arm] 167/76 H Pulse Oximetry 95 96 96 <DO Robbie Braga Last Filed: 05/14/18 07:37> Orders Ordered: Discontinued Medications Acetaminophen (Tylenol) 650 mg PO NOW ONE Stop: 05/13/18 17:28 Last Admin: 05/13/18 17:50 Dose: 650 mg Vital Signs - 8 hr 05/13/18 16:32 05/13/18 19:07 05/13/18 19:30 Temperature 97.5 F L Pulse Rate 86 73 73 Respiratory Rate 20 20 20 Blood Pressure 153/86 H 167/76 H Blood Pressure [Right Arm] 167/76 H Pulse Oximetry 95 96 96 MDM - Extremity (Nontraumatic) <GREYSON Albert Last Filed: 05/13/18 21:50> Imaging Data hip: Radiologist's impression: 20 Paz Martins PA-C Find Patient Imaging Isabella Lucero 82 F 1935 ACTIVITY DATE EXAM STATUS AUTHOR 05/13/18 17:27 Signed Raul Bejarano 05/13/18 17:[address] [address] XRay Report Signed Patient: Isabella Lucero MMR#: [id number] : 8Acct:[id number] Age/Sex: 82 / FDate of Service: 05/13/18 Loc: ED Accession Number: [id number] Procedure: XR hip w pel if done LT 2V Ordering Provider: Paz Martins P.A-C PROCEDURE: XR HIP W PEL IF DONE LT 2V INDICATIONS: hip pain TECHNIQUE: AP pelvis with lateral view of the left hip. COMPARISON: None. FINDINGS: Bones: No fractures or dislocations. Pelvic ring appears intact. No suspicious bony lesions. Soft tissues: The visualized bowel gas pattern is normal. No suspicious soft tissue calcifications. IMPRESSION: 1. No displaced fracture identified. Dictated by: Raul Bejarano M.D. on 05/13/2018 at 18:14 Approved by: Raul Bejarano M.D. on 05/13/2018 at 18:14 lumbar: Radiologist's impression: 21 Paz Martins PA-C Find Patient Imaging Isabella Lucero 82 F 1935 ACTIVITY DATE EXAM STATUS AUTHOR 05/13/18 17:27 Signed Raul Bejarano 05/13/18 17:27 Signed Raul Bejarano [address] [address] XRay Report Signed Patient: Isbaella Lucero MMR#: [id number] : 8Acct:[id number] Age/Sex: 82 / FDate of Service: 05/13/18 Loc: ED Accession Number: [id number] Procedure: XR lumbar spine 2-3V Ordering Provider: Paz Martins P.A-C PROCEDURE: XR LUMBAR SPINE 2-3V INDICATIONS: Sacro-iliac pain, gait disturbance TECHNIQUE: 3 views of the lumbar spine were acquired. COMPARISON: Located Within [facility], MR, L-SPINE W&WO CONTRAST, 07/06/2012, 10:03. FINDINGS: Bones: 5 [id number] vertebrae are present rudimentary ribs at the presumed T12 level. There is mild retrolisthesis at T12-L1 and L1-L2. Minimal anterolisthesis demonstrated at L3-L4. There is grade 1 anterolisthesis at L4-L5 measuring approximately 4-5 mm. Multilevel disc space narrowing is demonstrated including moderate narrowing at T12-L1 with endplate sclerosis and osteophytosis. There is also mild facet arthropathy in the lower lumbar spine. No vertebral body compression fractures. No suspicious bony lesions. Soft tissues: Overlying bowel gas pattern is normal. No suspicious soft tissue calcifications. IMPRESSION: 1. Mild multilevel spondylosis bases as described. 2. Multilevel degenerative disc disease most prominent at T12-L1. Mild facet arthropathy also demonstrated in the lower lumbar spine. Dictated by: Raul Bejarano M.D. on 05/13/2018 at 18:21 Approved by: Raul Bejarano M.D. on 05/13/2018 at 18:27 Discharge Plan Departure Patient Disposition: Home Clinical Impression: Sacroiliac joint dysfunction Discharge Date/Time: 05/13/18 19:32 Interventions: ED Discharge Assessment Last Done: 05/13/18 19:30 Instructions: Sacroiliac Joint Pain, DI Sacroiliac Joint Dysfunction Activity Restrictions/Additional Instructions: Most of the pain that you have seems to be coming from the sacroiliac joint, which is where your back and your hip connect. You do have some arthritis in your low back, which may contribute to this, but I also suspect that the gait and balance issues you have been having for quite a long time also are part of the cause. Please cloth picker some Tylenol arthritis strength (8 hr Tylenol or extended release Tylenol, 650 mg per pill), and take this routinely every 8 hr to help with your pain. Also apply a lidocaine patch to the area. You can continue a little bit of ibuprofen but it sounds like you took quite a bit earlier. Please limit that to 1 or 2 pills every 8 hr if you need additional pain medicine. Please follow-up with your PCP next week as you may need further testing or a referral to physical therapy. Please return if you have any acutely worsening symptoms over the weekend. Prescriptions: No Action miscellaneous medical supply misc .Route .MEDSUPPLY Qty: 1 RF: 0 blood sugar diagnostic [Blood Glucose Test] strip .ROUTE .MEDSUPPLY Qty: 100 RF: 3 metformin 1,000 mg tablet 1,000 mg PO BIDCC Qty: 180 RF: 3 insulin glargine 100 unit/mL (3 mL) insulin pen 30 unit SUBCUT DAILY Qty: 15 RF: 5 glyburide 5 mg tablet 5 mg PO BID Qty: 180 RF: 3 insulin syringe,safetyneedle [Assure ID Insulin Safety] 0.5 mL 29 gauge x 1/2 syringe .ROUTE .MEDSUPPLY Qty: 500 RF: 0 estradiol 1 mg tablet 1 mg PO QAM Qty: 90 RF: 3 furosemide 20 mg tablet 20 mg PO QAM Qty: 90 RF: 3 donepezil 5 mg tablet 5 mg PO BEDTIME RF: 0 levothyroxine 50 mcg tablet 50 mcg PO DAILY RF: 0 lovastatin 20 mg tablet 20 mg PO QPM RF: 0 losartan 100 mg tablet 100 mg PO QPM RF: 0 Referrals: Pierre Chung MD [Primary Care Provider] - <Susana Carver DO - Last Filed: 05/14/18 07:37> Cosign ED Attending Cosignature Attestation: I was immediately available in the department for consultation. This documentation has been reviewed and I agree with assessment and plan. Supervised by Susana Carver DO
--- NOTE | 2018-05-13 17:10 | ED_ITS ---
HPI - Extremity Problem <Paz Martins PA-C - Last Filed: 05/13/18 21:50> General Chief complaint: Extremity Problem,Nontraumatic Stated complaint: Back pain Time Seen by Provider: 05/13/18 17:07 Source: patient Mode of arrival: ambulatory Limitations: no limitations History of Present Illness HPI Narrative: This 82-year-old female comes in due to right hip pain for the last couple of weeks. She thinks gradually somewhat worse. She denies any trauma or recent falls. She describes the pain as an ache in the side and posterior hip. She states pain does not radiate into the leg or foot. She denies any acute weakness or paresthesia in her lower extremities. No groin numbness. No change in bladder function. She states that she had a bowel movement 3 days ago and then today when she normally goes every day, and had to strain warm. She has not had any recent illness or fever. She has not noted any rashes. Noted by her PCP to have a gait abnormality and she states that she walks with a wide-based gait to help her balance. She does have a history of arthritis in her knees and is status post right TKR 2 years ago. Does not know about any arthritis or other problem with her hip. She states she took a total of 6 ibuprofen at home today. Who has been taking not intermittently and does think that it helps the pain somewhat. Related Data Home Medications Medication Instructions Recorded Confirmed donepezil 5 mg PO BEDTIME 05/13/18 05/13/18 levothyroxine 50 mcg PO DAILY 05/13/18 05/13/18 losartan 100 mg PO QPM 05/13/18 05/13/18 lovastatin 20 mg PO QPM 05/13/18 05/13/18 Previous Rx's Medication Instructions Recorded miscellaneous medical supply misc #1 each 12/13/17 blood sugar diagnostic strips #100 each 02/01/18 estradiol 1 mg tablet 1 mg PO QAM #90 tab 02/09/18 furosemide 20 mg tablet 20 mg PO QAM #90 tab 02/09/18 glyburide 5 mg tablet 5 mg PO BID #180 tab 04/13/18 insulin syringe with safety needle #500 each 04/13/18 0.5 mL 29 gauge x 1/2 metformin 1,000 mg tablet 1,000 mg PO BIDCC #180 tab 04/21/18 insulin glargine (U-100) 100 30 unit SUBCUT DAILY #15 ml 05/04/18 unit/mL (3 mL) subcutaneous pen Allergies Allergy/AdvReac Type Severity Reaction Status Date / Time penicillin G [PENICILLIN G] Allergy Mild Verified 05/13/18 16:32 Review of Systems <Paz Martins PA-C - Last Filed: 05/13/18 21:50> Review of Systems ROS Unobtainable: All systems reviewed & are unremarkable except as noted in HPI and below PFSH <Paz Martins PA-C - Last Filed: 05/13/18 21:50> Medical History Cataract (Chronic ~2014) Diabetes mellitus (Chronic ~1996) Eczema (Chronic ~2013) Foot pain (Chronic ~1962) Fractures (Chronic ~1962) Hepatitis C (Chronic ~1948) Surgical History Anesthesia (Resolved) Personal history of spine surgery (Resolved ~2003) Personal history of spine surgery (Resolved ~2005) Family History Brother No problems noted. Father No problems noted. Mother No problems noted. Social History Smoking Status: Never smoker Family History Brother No problems noted. Father No problems noted. Mother No problems noted. Social History Smoking Status: Never smoker Exam <Paz Martins PA-C - Last Filed: 05/13/18 21:50> Narrative Exam Narrative: GENERAL APPEARANCE: Patient sitting comfortably, in no distress. PULMONARY: Lungs clear to auscultation bilaterally CV: Regular rhythm regular without murmur, normal S1 and S2, no S3 or S4 MUSCULOSKELETAL: No point tenderness over the lumbar spine. Some tenderness over the left SI joint, none elsewhere over the hip. No tenderness with seated trunk range of motion. She has full hip flexion with some intermittent tenderness on active flexion. Some tenderness with full forced inversion. No other tenderness on passive range of motion. Negative Vidal's test EXTREMITIES: No edema or cyanosis, no calf tenderness Initial Vital Signs Initial Vital Signs: Vital Signs Temperature 97.5 F L 05/13/18 16:32 Pulse Rate 86 05/13/18 16:32 Respiratory Rate 20 05/13/18 16:32 Blood Pressure 153/86 H 05/13/18 16:32 Pulse Oximetry 95 05/13/18 16:32 <DO Robbie Braga Last Filed: 05/14/18 07:37> Initial Vital Signs Initial Vital Signs: Vital Signs Temperature 97.5 F L 05/13/18 16:32 Pulse Rate 86 05/13/18 16:32 Respiratory Rate 20 05/13/18 16:32 Blood Pressure 153/86 H 05/13/18 16:32 Pulse Oximetry 95 05/13/18 16:32 Course <GREYSON Albert Last Filed: 05/13/18 21:50> Orders Ordered: Discontinued Medications Acetaminophen (Tylenol) 650 mg PO NOW ONE Stop: 05/13/18 17:28 Last Admin: 05/13/18 17:50 Dose: 650 mg Vital Signs - 8 hr 05/13/18 16:32 05/13/18 19:07 05/13/18 19:30 Temperature 97.5 F L Pulse Rate 86 73 73 Respiratory Rate 20 20 20 Blood Pressure 153/86 H 167/76 H Blood Pressure [Right Arm] 167/76 H Pulse Oximetry 95 96 96 <DO Robbie Braga Last Filed: 05/14/18 07:37> Orders Ordered: Discontinued Medications Acetaminophen (Tylenol) 650 mg PO NOW ONE Stop: 05/13/18 17:28 Last Admin: 05/13/18 17:50 Dose: 650 mg Vital Signs - 8 hr 05/13/18 16:32 05/13/18 19:07 05/13/18 19:30 Temperature 97.5 F L Pulse Rate 86 73 73 Respiratory Rate 20 20 20 Blood Pressure 153/86 H 167/76 H Blood Pressure [Right Arm] 167/76 H Pulse Oximetry 95 96 96 MDM - Extremity (Nontraumatic) <GREYSON Albert Last Filed: 05/13/18 21:50> Imaging Data hip: Radiologist's impression: 20 Paz Martins PA-C Find Patient Imaging Isabella Lucero 82 F 1935 ACTIVITY DATE EXAM STATUS AUTHOR 05/13/18 17:27 Signed Raul Bejarano 05/13/18 17:[address] [address] XRay Report Signed Patient: Isabella Lucero MMR#: [id number] : 8Acct:[id number] Age/Sex: 82 / FDate of Service: 05/13/18 Loc: ED Accession Number: [id number] Procedure: XR hip w pel if done LT 2V Ordering Provider: Paz Martins P.A-C PROCEDURE: XR HIP W PEL IF DONE LT 2V INDICATIONS: hip pain TECHNIQUE: AP pelvis with lateral view of the left hip. COMPARISON: None. FINDINGS: Bones: No fractures or dislocations. Pelvic ring appears intact. No suspicious bony lesions. Soft tissues: The visualized bowel gas pattern is normal. No suspicious soft tissue calcifications. IMPRESSION: 1. No displaced fracture identified. Dictated by: Raul Bejarano M.D. on 05/13/2018 at 18:14 Approved by: aRul Bejarano M.D. on 05/13/2018 at 18:14 lumbar: Radiologist's impression: 21 Paz Martins PA-C Find Patient Imaging Isabella Lucero 82 F 1935 ACTIVITY DATE EXAM STATUS AUTHOR 05/13/18 17:27 Signed Raul Bejarano 05/13/18 17:27 Signed Raul Bejarano [address] [address] XRay Report Signed Patient: Isabella Lucero MMR#: [id number] : 8Acct:[id number] Age/Sex: 82 / FDate of Service: 05/13/18 Loc: ED Accession Number: [id number] Procedure: XR lumbar spine 2-3V Ordering Provider: Paz Martins P.A-C PROCEDURE: XR LUMBAR SPINE 2-3V INDICATIONS: Sacro-iliac pain, gait disturbance TECHNIQUE: 3 views of the lumbar spine were acquired. COMPARISON: [facility], MR, L-SPINE W&WO CONTRAST, 07/06/2012, 10:03. FINDINGS: Bones: 5 [id number]-[id number] vertebrae are present rudimentary ribs at the presumed T12 level. There is mild retrolisthesis at T12-L1 and L1-L2. Minimal anterolisthesis demonstrated at L3-L4. There is grade 1 anterolisthesis at L4-L5 measuring approximately 4-5 mm. Multilevel disc space narrowing is demonstrated including moderate narrowing at T12-L1 with endplate sclerosis and osteophytosis. There is also mild facet arthropathy in the lower lumbar spine. No vertebral body compression fractures. No suspicious bony lesions. Soft tissues: Overlying bowel gas pattern is normal. No suspicious soft tissue calcifications. IMPRESSION: 1. Mild multilevel spondylosis bases as described. 2. Multilevel degenerative disc disease most prominent at T12-L1. Mild facet arthropathy also demonstrated in the lower lumbar spine. Dictated by: Raul Bejarano M.D. on 05/13/2018 at 18:21 Approved by: Raul Bejarano M.D. on 05/13/2018 at 18:27 Discharge Plan Departure Patient Disposition: Home Clinical Impression: Sacroiliac joint dysfunction Discharge Date/Time: 05/13/18 19:32 Interventions: ED Discharge Assessment Last Done: 05/13/18 19:30 Instructions: Sacroiliac Joint Pain, DI Sacroiliac Joint Dysfunction Activity Restrictions/Additional Instructions: Most of the pain that you have seems to be coming from the sacroiliac joint, which is where your back and your hip connect. You do have some arthritis in your low back, which may contribute to this, but I also suspect that the gait and balance issues you have been having for quite a long time also are part of the cause. Please grape picker some Tylenol arthritis strength (8 hr Tylenol or extended release Tylenol, 650 mg per pill), and take this routinely every 8 hr to help with your pain. Also apply a lidocaine patch to the area. You can continue a little bit of ibuprofen but it sounds like you took quite a bit earlier. Please limit that to 1 or 2 pills every 8 hr if you need additional pain medicine. Please follow-up with your PCP next week as you may need further testing or a referral to physical therapy. Please return if you have any acutely worsening symptoms over the weekend. Prescriptions: No Action miscellaneous medical supply misc .Route .MEDSUPPLY Qty: 1 RF: 0 blood sugar diagnostic [Blood Glucose Test] strip .ROUTE .MEDSUPPLY Qty: 100 RF: 3 metformin 1,000 mg tablet 1,000 mg PO BIDCC Qty: 180 RF: 3 insulin glargine 100 unit/mL (3 mL) insulin pen 30 unit SUBCUT DAILY Qty: 15 RF: 5 glyburide 5 mg tablet 5 mg PO BID Qty: 180 RF: 3 insulin syringe,safetyneedle [Assure ID Insulin Safety] 0.5 mL 29 gauge x 1/2 syringe .ROUTE .MEDSUPPLY Qty: 500 RF: 0 estradiol 1 mg tablet 1 mg PO QAM Qty: 90 RF: 3 furosemide 20 mg tablet 20 mg PO QAM Qty: 90 RF: 3 donepezil 5 mg tablet 5 mg PO BEDTIME RF: 0 levothyroxine 50 mcg tablet 50 mcg PO DAILY RF: 0 lovastatin 20 mg tablet 20 mg PO QPM RF: 0 losartan 100 mg tablet 100 mg PO QPM RF: 0 Referrals: Pierre Chung MD [Primary Care Provider] - <Susana Carver DO - Last Filed: 05/14/18 07:37> Cosign ED Attending Cosignature Attestation: I was immediately available in the department for consultation. This docu mentation has been reviewed and I agree with assessment and plan. Supervised by Susana Carver DO
--- NOTE | 2018-05-13 17:27 | DI.RAD.S_ITS ---
PROCEDURE: XR LUMBAR SPINE 2-3V INDICATIONS: Sacro-iliac pain, gait disturbance TECHNIQUE: 3 views of the lumbar spine were acquired. COMPARISON: [facility], MR, L-SPINE W&WO CONTRAST, 07/06/2012, 10:03. FINDINGS: Bones: 5 itv-nox-jvbtjfn vertebrae are present rudimentary ribs at the presumed T12 level. There is mild retrolisthesis at T12-L1 and L1-L2. Minimal anterolisthesis demonstrated at L3-L4. There is grade 1 anterolisthesis at L4-L5 measuring approximately 4-5 mm. Multilevel disc space narrowing is demonstrated including moderate narrowing at T12-L1 with endplate sclerosis and osteophytosis. There is also mild facet arthropathy in the lower lumbar spine. No vertebral body compression fractures. No suspicious bony lesions. Soft tissues: Overlying bowel gas pattern is normal. No suspicious soft tissue calcifications. IMPRESSION: 1. Mild multilevel spondylosis bases as described. 2. Multilevel degenerative disc disease most prominent at T12-L1. Mild facet arthropathy also demonstrated in the lower lumbar spine. Dictated by: Raul Bejarano M.D. on 05/13/2018 at 18:21 Approved by: Raul Bejarano M.D. on 05/13/2018 at 18:27
--- NOTE | 2018-05-13 17:27 | DI.RAD.S_ITS ---
PROCEDURE: XR HIP W PEL IF DONE LT 2V INDICATIONS: hip pain TECHNIQUE: AP pelvis with lateral view of the left hip. COMPARISON: None. FINDINGS: Bones: No fractures or dislocations. Pelvic ring appears intact. No suspicious bony lesions. Soft tissues: The visualized bowel gas pattern is normal. No suspicious soft tissue calcifications. IMPRESSION: 1. No displaced fracture identified. Dictated by: Raul Bejarano M.D. on 05/13/2018 at 18:14 Approved by: Raul Bejarano M.D. on 05/13/2018 at 18:14
[2018-05-13] MEDS: ACETAMINOPHEN 325 MG TABLET 650 MG PO (17:50)
[2018-05-13 19:07] VITALS: BP 167/76; PULSE 73; RESP 20; O2SAT 96
--- NOTE | 2018-05-13 19:25 | PC.NURSE ---
I agree with all assessments and treatments completed by the student nurse. I was available as needed.
[2018-05-13 19:30] VITALS: BP 167/76; PULSE 73; RESP 20; O2SAT 96
== END 2018-05-13 19:32 | disposition home or self-care (01) ==
PROVIDERS: Emergency Provider Internal Medicine; Family Provider Family Medicine; PCP Family Medicine
DX: M53.3 Sacrococcygeal disorders, not elsewhere classified (principal)
CPT/HCPCS: 72100; 73502; 99283

== ENCOUNTER → 2018-05-23 14:19 | Outpatient (CLI) | payer MEDICARE, SELFPAY ==
--- NOTE | 2018-05-23 | DI.MRI.S_ITS ---
PROCEDURE: MR CERVICAL SPINE WO/W CON INDICATIONS: Bilateral lower extremity ataxia TECHNIQUE: Noncontrast sagittal T1 spin echo and T2 fast spin echo, sagittal STIR, foraminal oblique sagittal T2 fast spin echo, axial gradient echo or T2 fast spin echo through the cervical spine. After the administration of contrast, axial and sagittal T1 spin echo with fat saturation through the cervical spine. COMPARISON: None. FINDINGS: Image quality: Excellent. Alignment and curvature: Remote C2-C7 posterior laminectomy. Reversal of normal lordotic curve centered at C5-C6. Marrow: Marrow is normal in overall signal, without suspicious enhancement. Spinal cord: Visualized spinal cord has normal size and signal. No cerebellar tonsillar herniation. No abnormal intramedullary enhancement. Paraspinous soft tissues: No paravertebral masses or suspicious enhancement. C2-3: No canal stenosis. Bilateral facet hypertrophy. Moderate to severe left foraminal narrowing. C3-4: No canal stenosis. Flowing posterior osteophyte. Bilateral facet hypertrophy. Marked right foraminal narrowing. Mild left foraminal narrowing. C4-5: Moderate disc height loss. No canal stenosis. Moderate left foraminal narrowing. Severe right foraminal narrowing. Bilateral facet hypertrophy. C5-6: Moderate to severe disc height loss. Flowing posterior osteophyte. No canal stenosis. Severe left foraminal narrowing and moderate right foraminal narrowing. C6-7: Severe disc height loss. Flowing posterior osteophyte. No canal stenosis. Severe left foraminal narrowing and moderate right foraminal narrowing. C7-T1: No canal stenosis. Moderate left foraminal narrowing. No right foraminal narrowing. IMPRESSION: 1. Remote C2-C7 laminectomy. 2. Severe cervical spondylitic change. 3. Normal appearance of cord. 4. No central canal stenosis. 5. Multilevel foraminal narrowing as described above. Dictated by: Olu Garcia M.D. on 05/23/2018 at 15:29 Approved by: Olu Garcia M.D. on 05/23/2018 at 15:40
== END ==
PROVIDERS: Family Provider Family Medicine; PCP Family Medicine; Visit Provider Psychiatry & Neurology Neurology
DX: M47.812 Spondylosis without myelopathy or radiculopathy, cervical region (principal); R27.0 Ataxia, unspecified; R20.2 Paresthesia of skin; M48.02 Spinal stenosis, cervical region
CPT/HCPCS: 72156

== ENCOUNTER 2018-06-11 04:50 | Observation (INO) | payer MEDICARE, SELFPAY ==
[2018-06-11] VITALS (11 sets, daily range): BP systolic 111–160; BP diastolic 46–80; PULSE 64–97; RESP 16–22; TEMP 36.1–36.8; O2SAT 90–100; BMI 39.4
--- NOTE | 2018-06-11 04:53 | DI.CT.S_ITS ---
PROCEDURE: CT HEAD/BRAIN W CON INDICATIONS: stroke TECHNIQUE: 4.5 mm thick angled axial sections acquired from the foramen magnum to the vertex after the administration of intravenous contrast, with coronal and sagittal reformats. For radiation dose reduction, the following was used: automated exposure control, adjustment of mA and/or kV according to patient size. COMPARISON: [facility], CT, CT HEAD/BRAIN WO CON, 12/23/2017, 15:18. FINDINGS: Image quality: Limited by patient motion. CSF Spaces: Basal cisterns are patent. No extra-axial fluid collections. Ventricles are normal in size and shape. Brain: No midline shift. No intracranial bleeds or masses. No abnormal intracranial enhancement. Marie-white interface appears normal. Skull and face: Calvarium and visualized facial bones appear intact, without suspicious lesions. Soft tissue density masses noted in the right parietal scalp which is stable compared to prior examination. Sinuses: Visualized sinuses and mastoids are clear. IMPRESSION: 1. No acute intracranial disease process. 2. Soft tissue density right parietal scalp mass which is stable compared to 12/23/2017. Recommend correlation with clinical findings to exclude malignancy. Dictated by: Radha Desai MD, PhD on 06/11/2018 at 8:44 Approved by: Radha Desai MD, PhD on 06/11/2018 at 8:47
--- NOTE | 2018-06-11 04:58 | DI.RAD.S_ITS ---
PROCEDURE: XR CHEST 1V INDICATIONS: cough TECHNIQUE: One view of the chest was acquired. COMPARISON: None. FINDINGS: Surgical changes and devices: None. Lungs and pleura: Lungs are clear. No pleural effusions or pneumothorax. Mediastinum: Mediastinal contours appear normal. Heart size is enlarged. Bones and chest wall: No suspicious bony lesions. Overlying soft tissues appear unremarkable. IMPRESSION: No acute cardiopulmonary disease process. Dictated by: Radha Desai MD, PhD on 06/11/2018 at 9:49 Approved by: Radha Desai MD, PhD on 06/11/2018 at 9:50
[2018-06-11] MEDS: SODIUM CHLORIDE 0.9% 1,000 ML 150 ML IV (05:00)
[2018-06-11] MEDS: ASPIRIN 300 MG SUPP PR (05:15)
--- NOTE | 2018-06-11 05:20 | ED_ITS ---
HPI - Neuro Symptoms/Deficit General Chief Complaint: Neuro Symptoms/Deficit Stated Complaint: possible stroke Time Seen by Provider: 06/11/18 04:56 Source: family and EMS Mode of arrival: EMS History of Present Illness HPI Narrative: Patient is an 82-year-old female who presents with difficulty speaking and right-sided deficits. She lives with family her daughter states that she was normal when she went to bed. She woke up this morning the tried ambulating the heard she was having difficulty and went to help her. She usually walks with a walker. She was unable to help with her right side. He also noticed that she was not able to follow commands and had difficulty with words. She now is moving her right side. But continues to have difficulty with word finding and following commands. She complained of a headache and vomited one at home. She a productive cough of is coughing so much she has dry heaving. She was well yesterday no fever. Location: speech Severity: moderate Related Data Home Medications Medication Instructions Recorded Confirmed donepezil 5 mg PO BEDTIME 05/13/18 05/13/18 levothyroxine 50 mcg PO DAILY 05/13/18 05/13/18 losartan 100 mg PO QPM 05/13/18 05/13/18 Previous Rx's Medication Instructions Recorded miscellaneous medical supply misc #1 each 12/13/17 blood sugar diagnostic strips #100 each 02/01/18 glyburide 5 mg tablet 5 mg PO BID #180 tab 04/13/18 insulin syringe with safety needle #500 each 04/13/18 0.5 mL 29 gauge x 1/2 metformin 1,000 mg tablet 1,000 mg PO BIDCC #180 tab 04/21/18 insulin glargine (U-100) 100 30 unit SUBCUT DAILY #15 ml 05/04/18 unit/mL (3 mL) subcutaneous pen furosemide 20 mg tablet 20 mg PO QAM #90 tab 05/19/18 lovastatin 20 mg tablet 20 mg PO QPM #90 tab 05/19/18 alprazolam 0.25 mg tablet 0.25 mg PO BID PRN #2 tab 05/23/18 alprazolam 0.25 mg tablet See Rx Instructions PO ONCE #2 tab 05/23/18 estradiol 1 mg tablet 1 mg PO QAM #90 tab 05/23/18 Allergies Allergy/AdvReac Type Severity Reaction Status Date / Time penicillin G [PENICILLIN G] Allergy Mild Verified 05/13/18 16:32 Review of Systems Review of Systems ROS Unobtainable: All systems reviewed & are unremarkable except as noted in HPI and below Constitutional Denies chills, Denies fever(s), Denies lethargy and Denies weakness Cardiovascular Denies chest pain, Denies irregular heart rhythm, Denies lightheadedness, Denies palpitations and Denies orthopnea Respiratory Reports cough Neurologic Denies weakness Endocrine Denies palpitations PFS Social History Smoking Status: Never smoker Exam Initial Vital Signs Initial Vital Signs: Vital Signs Temperature 96.9 F L 06/11/18 05:00 Pulse Rate 94 H 06/11/18 05:00 Respiratory Rate 17 06/11/18 05:00 Blood Pressure 146/76 H 06/11/18 05:00 Pulse Oximetry 90 L 06/11/18 05:00 Const General: well developed and disheveled Nutritional Appearance: overweight Orientation: alert, awake and confused HENPA Head: normal to inspection, normocephalic and atraumatic Eyes General: appearance normal, both eyes and all related structures Pupils: PERRL EOM: EOM intact bilaterally Neck Neck: normal visual inspection, full ROM and supple Chest Chest: normal inspection of the chest and normal palpation of entire chest wall Resp Effort & Inspection: normal respiratory effort Auscultation: wheezes (mild) expiratory wheezes Cardio Rate: regular rate Rhythm: regular rhythm Heart Sounds: S1 normal and S2 normal Pulses: normal peripheral pulses GI Inspection: normal to inspection Palpation: No firm Auscultation: normal bowel sounds Skin General: no rashes or lesions noted, No jaundice and No petechiae Neuro General: alert and awake Extrem General: normal to inspection, full ROM and capillary refill normal Scores NIH Stroke Scale Level of Conciousness: Alert, keenly responsive Ask month/age: Answers neither question correctly, aphasic, stuporous, coma Open/close eyes, close hand: Performs both tasks correctly Best gaze horizontal: Normal Visual negro: No visual loss Facial palsy: Normal symetrical movement Left arm drift: No drift for full 10 sec Right arm drift: No drift for full 10 sec Left leg drift: No drift for full 10 sec Right leg drift: Drifts down, not to bed Limb ataxia: Present in one limb Sensory on face/arms/legs: Normal, no sensory loss Best language: Mild to moderate, slurs some words Dysarthria: Mild to mod,some slurring Extinction or inattention: No abnormality Total NIH Stroke scale score: 6 Course Orders Ordered: ED Orders 06/11/18 04:53 CT head/brain w con Stat 06/11/18 04:58 XR chest 1V Stat Urine Drug Screen, Rapid Stat EKG-12 Lead Stat 06/11/18 05:00 Influenza A and B by PCR Rapid Stat 06/11/18 05:10 Blood Culture Stat 06/11/18 05:25 Complete Blood Count AUTO DIFF Stat Comprehensive Metabolic Panel Stat Lactate (Lactic Acid) Stat Partial Thromboplastin Time Stat Prothrombin Time INR Stat Sodium Chloride (Normal Saline 0.9%) 1,000 mls @ 150 mls/hr IV CONT JUSTIN Last Admin: 06/11/18 05:00 Dose: 150 mls/hr Discontinued Medications Acetaminophen (Tylenol) 325 mg MO NOW ONE Stop: 06/11/18 06:29 Last Admin: 06/11/18 07:16 Dose: Not Given Albuterol/Ipratropium (Duoneb) 3 ml INH NOW ONE Stop: 06/11/18 05:29 Last Admin: 06/11/18 05:39 Dose: 3 ml Aspirin (Aspirin) 300 mg MO NOW ONE Stop: 06/11/18 05:09 Last Admin: 06/11/18 05:15 Dose: 300 mg Ondansetron HCl (Zofran) 4 mg IV NOW ONE Stop: 06/11/18 05:29 Last Admin: 06/11/18 05:37 Dose: 4 mg Vital Signs - 8 hr 06/11/18 05:00 06/11/18 05:12 06/11/18 05:39 Temperature 96.9 F L 96.9 F L Pulse Rate 94 H 84 93 H Respiratory Rate 17 16 16 Blood Pressure 146/76 H Blood Pressure [Right Arm] 146/79 H 160/80 H Pulse Oximetry 90 L 97 100 06/11/18 05:40 06/11/18 06:36 Temperature Pulse Rate 93 H 94 H Respiratory Rate 22 17 Blood Pressure Blood Pressure [Right Arm] 150/66 H Pulse Oximetry 92 90 L MDM - Neuro Symptoms/Deficit Lab Data Attestation: I reviewed the patient's lab results. Result diagrams: 06/11/18 05:25 06/11/18 05:25 Lab Results 06/11/18 06/11/18 06/11/18 Range/Units 05:00 05:25 05:25 WBC 10.7 (4.5-11.0) X10^3/uL RBC 4.75 (4.0-5.2) X10^6/uL Hgb 14.1 (12.0-16.0) g/dL Hct 43.1 (36-46) % MCV 90.8 (80-100) fL MCH 29.7 (26-34) PG MCHC 32.7 (30-36) % RDW 14.8 (11.6-14.8) % Plt Count 248 (150-400) X10^3/uL Neut % (Auto) 74.9 (50-75) % Lymph % (Auto) 16.5 L (25-40) % [place] % (Auto) 6.7 (3-14) % Eos % (Auto) 1.2 L (2-4) % Baso % (Auto) 0.7 (0-2) % Neut # (Auto) 8000 H (2032-4429) /uL Lymph # (Auto) 1800 (5781-8540) /uL [place] # (Auto) 700 (0-900) /uL Eos # (Auto) 100 (0-450) /uL Baso # (Auto) 100 (0-100) /uL PT 10.1 (10.1-12.7) SECONDS INR 0.9 (0.9-1.3) APTT 30 (26.4-36.2) SECONDS Sodium (137-145) mmol/L Potassium (3.4-5.1) mmol/L Chloride (98-107) mmol/L Carbon Dioxide (22-32) mmol/L BUN (7-17) mg/dL Creatinine (0.52-1.04) mg/dL Estimated GFR (>60) mL/min BUN/Creatinine Ratio (6-22) Glucose (80-110) mg/dL Lactate (0.7-2.1) mmol/L Calcium (8.4-10.2) mg/dL Total Bilirubin (0.2-1.3) mg/dL AST (14-36) IU/L ALT (9-52) IU/L Alkaline Phosphatase (38-126) U/L Total Protein (6.3-8.2) g/dL Albumin (3.5-5.0) g/dL Globulin (1.7-4.1) g/dL Albumin/Globulin Ratio (1.0-2.8) Influenza A & B (PCR) Negative (Negative) 06/11/18 06/11/18 Range/Units 05:25 05:25 WBC (4.5-11.0) X10^3/uL RBC (4.0-5.2) X10^6/uL Hgb (12.0-16.0) g/dL Hct (36-46) % MCV (80-100) fL MCH (26-34) PG MCHC (30-36) % RDW (11.6-14.8) % Plt Count (150-400) X10^3/uL Neut % (Auto) (50-75) % Lymph % (Auto) (25-40) % [place] % (Auto) (3-14) % Eos % (Auto) (2-4) % Baso % (Auto) (0-2) % Neut # (Auto) (8206-9670) /uL Lymph # (Auto) (8185-2774) /uL [place] # (Auto) (0-900) /uL Eos # (Auto) (0-450) /uL Baso # (Auto) (0-100) /uL PT (10.1-12.7) SECONDS INR (0.9-1.3) APTT (26.4-36.2) SECONDS Sodium 139 (137-145) mmol/L Potassium 5.0 (3.4-5.1) mmol/L Chloride 104 (98-107) mmol/L Carbon Dioxide 28 (22-32) mmol/L BUN 32 H (7-17) mg/dL Creatinine 1.00 (0.52-1.04) mg/dL Estimated GFR 53.3 L (>60) mL/min BUN/Creatinine Ratio 32.0 H (6-22) Glucose 174 H (80-110) mg/dL Lactate 2.0 (0.7-2.1) mmol/L Calcium 10.8 H (8.4-10.2) mg/dL Total Bilirubin 0.4 (0.2-1.3) mg/dL AST 15 (14-36) IU/L ALT 23 (9-52) IU/L Alkaline Phosphatase 49 (38-126) U/L Total Protein 6.8 (6.3-8.2) g/dL Albumin 4.0 (3.5-5.0) g/dL Globulin 2.8 (1.7-4.1) g/dL Albumin/Globulin Ratio 1.4 (1.0-2.8) Influenza A & B (PCR) (Negative) Imaging Data CT scan - head: Radiologist's impression: production editor report no acute intracranial process Chest x-ray: Attestation: I personally reviewed and interpreted this imaging study as follows: My impression: no acute cardiopulmonary process ECG Data Attestation: I personally reviewed and interpreted this ECG as follows: Interpretation: Normal sinus rhythm rate [address] changes artifact noted MDM Narrative Medical decision making narrative: The patient is unable to follow commands she has some obvious word finding problems. Her right side does seem to be moving and equal. She does not follow commands very well but is able to follow some. Discussed with family that she is not a tPA candidate based on inability to pinpoint what time symptoms actually started. Dr. Chung accepts patient for admission Discharge Plan Departure Patient Disposition: Admitted As Inpatient Clinical Impression: CVA (cerebral vascular accident) Qualifiers: CVA mechanism: unspecified Qualified Code(s): I63.9 - Cerebral infarction, unspecified
[2018-06-11 05:33] LABS: Add Manual Diff / Slide Review NO; Basophils Absolute Auto 100 /uL (0-100); Basophils Percent Auto 0.7 % (0-2); Eosinophils Absolute Auto 100 /uL (0-450); Eosinophils Percent Auto 1.2 % (2-4); Hematocrit 43.1 % (36-46); Hemoglobin 14.1 g/dL (12.0-16.0); Lymphocytes Absolute Auto 1800 /uL (1100-4500); Lymphocytes Percent Auto 16.5 % (25-40); Mean Corpuscular HGB Conc 32.7 % (30-36); Mean Corpuscular Hemoglobin 29.7 PG (26-34); Mean Corpuscular Volume 90.8 fL (80-100); Monocytes Absolute Auto 700 /uL (0-900); Monocytes Percent Auto 6.7 % (3-14); Neutrophils Absolute Auto 8000 /uL (1500-7000); Neutrophils Percent Auto 74.9 % (50-75); Platelet Count 248 X10^3/uL (150-400); Red Blood Cell Count 4.75 X10^6/uL (4.0-5.2); Red Cell Distribution Width 14.8 % (11.6-14.8); White Blood Cell Count 10.7 X10^3/uL (4.5-11.0)
[2018-06-11 05:34] LABS: Influenza A and B by PCR Rapid Negative (Negative)
[2018-06-11] MEDS: ONDANSETRON 4 MG/2 ML INJ IV (05:37)
[2018-06-11] MEDS: ALBUTEROL/IPRATROPIUM 3 ML AMPUL INH (05:39)
[2018-06-11 05:42] LABS: INR 0.9 (0.9-1.3); Prothrombin Time 10.1 SECONDS (10.1-12.7)
[2018-06-11 05:43] LABS: Alanine Aminotransferase 23 IU/L (9-52); Albumin Globulin Ratio 1.4 (1.0-2.8); Alkaline Phosphatase 49 U/L (38-126); Aspartate Aminotransferase 15 IU/L (14-36); Bilirubin Total 0.4 mg/dL (0.2-1.3); Blood Urea Nitrogen 32 mg/dL (7-17); Calcium 10.8 mg/dL (8.4-10.2); Carbon Dioxide 28 mmol/L (22-32); Chloride 104 mmol/L (98-107); Estimated Glomerular Filt Rate 53.3 mL/min (>60); Globulin 2.8 g/dL (1.7-4.1); Glucose 174 mg/dL (80-110); HEMOLYSIS < 15 (0-50); Sodium 139 mmol/L (137-145); Total Protein 6.8 g/dL (6.3-8.2)
[2018-06-11 06:01] LABS: PTT Partial Thromboplastin Tim 30 SECONDS (26.4-36.2)
--- NOTE | 2018-06-11 06:30 | PC.NURSE ---
Pt pulled IV out, catheter tip intact. Dr. harris. Second Line placed by SAWPNA Bernal.
--- NOTE | 2018-06-11 08:24 | DI.ECHO.S_ITS ---
[facility]---------+ [facility] +---------+ : : [address] : [address] : : : : [id number] : : : : Phone: [phone]---------+ Echocardiogram Report + + :Name: GATITO ZARAGOZA Study Date: 06/11/2018 Height: 64 in : :[facility] Weight: 230 lb : : Gender: Female BSA: 2.1 m2 : :: 1935 Age: 82 yrs BP: 144/91 mmHg: :Reason For Study: cva : :Ordering Physician: Ladarius : :Hospitalist Performed By: Zeynep Nixon : :Referring: GISELLE BARKER : + + Interpretation Summary The study quality was technically difficult. The ejection fraction is estimated to be 70-75%. There is no obvious LV thrombus. The right ventricle is grossly normal size. The right ventricular systolic function is normal. All the valves were not well seen however no significant valvular pathology seen. Procedure: A two-dimensional transthoracic echocardiogram with color flow and Doppler was performed. The study quality was technically difficult. There is no prior echocardiogram noted for this patient. Unable to perform bubble study due to poor accoustic images. 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 Ekg unreliable due to movement. The patient had a bundle branch block rhythm during the exam. Artifacts seen. Rhythm is not clear. Left Ventricle: There is normal left ventricular wall thickness. The left ventricular cavity is small. There is no echo evidence for significant left ventricular outflow tract obstruction. There is no thrombus. The ejection fraction is estimated to be 70-75%. There are no obvious focal wall motion abnormalities noted but poor endocardial definition reduces the sensitivity for the detection of such. Diastolic parameters suggest a relaxation abnormality of the left ventricle, consistent with probable normal filling pressures. Right Ventricle: The right ventricle is grossly normal size. The right ventricular systolic function is normal. Atria: The left atrial size is normal. The right atrium is mildly dilated. There is no Doppler evidence for an interatrial shunt. The atrial septum is aneurysmal. Mitral Valve: The mitral valve leaflets appear mildly thickened, but open well. There is mild mitral annular calcification. The mitral valve is not well visualized. No significant mitral valve stenosis. At least trace MR. Aortic Valve: The aortic valve is not well visualized. The aortic valve opens well. There is no aortic valve stenosis. No aortic regurgitation is present. Tricuspid Valve: The tricuspid valve is not well visualized, but is grossly normal. Pulmonary artery pressures cannot be estimated because of the lack of a measurable TR jet velocity. There is trace tricuspid regurgitation. Pulmonic Valve: The pulmonic valve is not well visualized. Great Vessels: The aortic root is normal size. The ascending aorta is normal in size. The aortic arch is normal in size. The pulmonary is not well visualized. The IVC is of normal diameter and collapses greater than 50% with a sniff. This suggests a low right atrial pressure of 3 mm Hg. Pericardium/ Pleura There is no pericardial effusion. There is no pleural effusion. Liver cyst seen. MMode/2D Measurements & Calculations LVIDd: 3.5 cm LVOT diam: 2.1 cm LVIDs: 1.9 cm Ao root diam: 3.3 cm FS: 47.3 % asc Aorta Diam: 3.5 cm IVSd: 0.80 cm Ao Arch Diam (Prox Trans): 2.5 cm LVPWd: 0.98 cm LV diamond. diameter/BSA (cm/m^2): 1.7 LV sys. diameter/BSA (cm/m^2): 0.90 LA A2 area: 23.6 cm2 RA long axis: 5.5 cm LA A4 area: 19.6 cm2 RA area: 20.6 cm2 LA length (vol): 6.0 cm RA vol: 65.4 ml LA vol: 65.1 ml RA : 31.5 ml/m2 LA vol index: 31.4 ml/m2 IVC diam: 1.3 cm RVD1 (basal): 4.1 cm RVD2 (mid): 2.8 cm Doppler Measurements & Calculations Ao V2 max: 175.9 cm/sec LVOT Max Messi: 150.3 cm/sec Ao V2 mean: 120.5 cm/sec LV V1 max P.0 mmHg Ao max P.4 mmHg LV V1 VTI: 30.2 cm Ao mean P.4 mmHg DINORA(I,D): 3.3 cm2 Ao V2 VTI: 31.4 cm DINORA(V,D): 2.9 cm2 sev ratio: 0.96 DINORA indexed to BSA (cm^2/m^2): 1.6 MV E max messi: 42.9 cm/sec PA V2 max: 94.7 cm/sec MV A max messi: 122.2 cm/sec PA V2 mean: 58.3 cm/sec MV E/A: 0.35 PA mean P.6 mmHg Lat Peak E' Messi: 5.9 cm/sec PA Accel Time: 0.10 sec E/E' lat: 7.3 MV P1/2t: 88.4 msec MVA(VTI): 3.9 cm2 MV V2 mean: 83.8 cm/sec MV P1/2t max messi: 81.1 cm/sec MV mean P.0 mmHg MVA(P1/2t): 2.5 cm2 MV V2 VTI: 26.9 cm SV(LVOT): 103.8 ml Reading Physician:PM
--- NOTE | 2018-06-11 08:24 | DI.MRI.S_ITS ---
PROCEDURE: MR HEAD/BRAIN WO CON INDICATIONS: cva TECHNIQUE: Noncontrast axial T1 spin echo, axial T2 fast spin echo, sagittal and axial FLAIR, coronal T2 fast spin echo, axial gradient echo, axial diffusion and ADC through the brain. COMPARISON: [facility], CT, CT HEAD/BRAIN W CON, 06/11/2018, 4:54. FINDINGS: Image quality: Image quality severely limited by patient motion artifact. CSF Spaces: Basal cisterns are patent. No extra-axial fluid collections. Ventricles are normal in size and shape. Brain: No intracranial masses or hemorrhage. Marie/white matter interface is normal. Brainstem appears normal. There is moderate, diffuse cerebral volume loss. There are mild periventricular and subcortical white matter chronic microvascular ischemic changes. Diffusion-weighted images demonstrate no acute ischemic insult. No chronic ischemic insults. Normal intravascular flow voids are present. Skull and face: Calvarium has normal marrow signal. Orbits appear normal. Sinuses: Sinuses and mastoids are clear. IMPRESSION: 1. Image quality severely limited by patient motion artifact. 2. No acute intracranial disease process within limitations related to motion artifact. 3. No areas of acute or chronic infarction. The 4. No intracranial hemorrhage. Dictated by: Radha Desai MD, PhD on 06/11/2018 at 11:01 Approved by: Radha Desai MD, PhD on 06/11/2018 at 11:04
[2018-06-11] MEDS: SODIUM CHLORIDE 0.9% 1,000 ML 125 ML IV (08:40)
--- NOTE | 2018-06-11 10:02 | PC.NURSE ---
Patient admitted to room 209 by fire extinguisher charger Sherry. Dr. Chung in to see patient and family right away. VSS. daughters at bedside. Patient had been incontinent of bowel and bladder, brief changed and kt care provided. 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 Patient off unit at this time. Will continue with plan of care upon her return.
--- NOTE | 2018-06-11 10:43 | PM.HP.1 ---
History of Present Illness Date Patient Seen: 06/11/18 Time Patient Seen: 10:44 Chief complaint: possible stroke Narrative: Right-sided weakness Patient admitted through the ER earlier this morning. Patient went to bed her usual time and apparently was normal. The patient awakened approximately 2:00 a.m. per her usual to go to the bathroom. Daughter was awake at the time. Daughter heard the patient yell and found patient on the side on the floor with her walker on the the side. Patient not use a walker at home to be for ambulation. The daughter got the patient back on bed and noted that the patient had weakness of the right arm and with drooping of the right side her face and called the paramedics. Paramedics brought patient to the emergency room where she was evaluated and felt to have experienced an acute CVA resulting in right-sided weakness and mental confusion. Patient currently is being evaluated by neurologist Dr. rossi in [place] for memory impairment and apparently if she is having some neck and patient's symptoms and ordered MRI of her neck. The patient has had problems with memory impairment over the last several weeks and is being treated for same with donepezil. Other medical problems include insulin-dependent diabetes, hypertension, hyperlipidemia, and memory impairment as stated Patient History Medical History Cataract (Chronic ~2014) Diabetes mellitus (Chronic ~1996) Eczema (Chronic ~2013) Foot pain (Chronic ~1962) Fractures (Chronic ~1962) Hepatitis C (Chronic ~1948) Surgical History Anesthesia (Resolved) Personal history of spine surgery (Resolved ~2003) Personal history of spine surgery (Resolved ~2005) Family History Brother No problems noted. Father No problems noted. Mother No problems noted. Social History household members: family Smoking Status: Never smoker alcohol intake: never Family & Social History Family History Brother No problems noted. Father No problems noted. Mother No problems noted. Social History: household members family Prior Living Arrangements House Safety & Behavioral: Feels Safe in Current Yes Environment Been Physically Hurt or No Threatened By a Person Suicidal Ideation Description None Suicide Plan Description No Plan Tobacco & Substance use: Smoking Status Never smoker alcohol intake never alcohol intake frequency 0-2 drinks per day Substance Use Type does not use Meds Home Medications Medication Instructions Recorded Confirmed Type miscellaneous medical supply misc #1 each 12/13/17 05/13/18 Rx blood sugar diagnostic strips #100 each 02/01/18 05/13/18 Rx glyburide 5 mg tablet 5 mg PO BID #180 tab 04/13/18 06/11/18 Rx insulin syringe with safety needle #500 each 04/13/18 05/13/18 Rx 0.5 mL 29 gauge x 1/2 metformin 1,000 mg tablet 1,000 mg PO BIDCC #180 tab 04/21/18 06/11/18 Rx insulin glargine (U-100) 100 30 unit SUBCUT DAILY #15 ml 05/04/18 05/13/18 Rx unit/mL (3 mL) subcutaneous pen donepezil 5 mg PO BEDTIME 05/13/18 06/11/18 History levothyroxine 50 mcg PO DAILY 05/13/18 06/11/18 History losartan 100 mg PO QPM 05/13/18 06/11/18 History furosemide 20 mg tablet 20 mg PO QAM #90 tab 05/19/18 06/11/18 Rx lovastatin 20 mg tablet 20 mg PO QPM #90 tab 05/19/18 06/11/18 Rx alprazolam 0.25 mg tablet 0.25 mg PO BID PRN #2 tab 05/23/18 Rx alprazolam 0.25 mg tablet See Rx Instructions PO ONCE #2 tab 05/23/18 Rx estradiol 1 mg tablet 1 mg PO QAM #90 tab 05/23/18 06/11/18 Rx insulin glargine [Lantus Solostar 40 unit SUBCUT DAILY 06/11/18 06/11/18 History U-100 Insulin] Allergies Allergy/AdvReac Type Severity Reaction Status Date / Time penicillin G [PENICILLIN G] Allergy Mild Verified 05/13/18 16:32 Review of Systems Review of Systems All systems reviewed & are unremarkable except as noted in HPI and below Exam Vital Signs (past 8 hours): - 06/11/18 05:00 06/11/18 05:12 06/11/18 05:39 Temperature 96.9 F L 96.9 F L Pulse Rate 94 H 84 93 H Respiratory Rate 17 16 16 Blood Pressure 146/76 H Blood Pressure [Right Arm] 146/79 H 160/80 H Pulse Oximetry 90 L 97 100 06/11/18 05:40 06/11/18 06:36 06/11/18 07:38 Temperature Pulse Rate 93 H 94 H 97 H Respiratory Rate 22 17 20 Blood Pressure 145/72 H Blood Pressure [Right Arm] 150/66 H Pulse Oximetry 92 90 L 97 Oxygen Delivery Method Nasal Cannula Oxygen Flow Rate 2 Narrative Exam Narrative: Gen.: Skin: Warm well perfused. No prominent lesions. Nonicteric. HEENT: PERRL., normal EOM, external ears canals TMs normal, nasal mucosa normal and midline septum, oropharynx without lesions. Neck: Trachea midline. Thyroid nontender and not enlarged. Carotids without bruits. No lymphadenopathy Back: No obvious deformity or tenderness. Chest: Clear to P&A. Symmetric. CV: RRR no murmur or gallop. No JVD. Abdomen: No masses bruits tenderness or visceromegaly. Neuro: Cranial nerves II through XII grossly intact. Sensory and motor exams intact. Gait not tested Mental status: Intact for screening Extremities: No cyanosis clubbing or edema Musculoskeletal: No gross deformities Lymphatics: Negative for lymphadenopathy, supraclavicular axillary or inguinal . The patient's neurologic exam she had no facial asymmetry. Cranial nerves 2-12 were intact. Part of the neurologic exam was difficult to perform because the patient is not understanding the questions or not comprehending. Strength of the upper extremities CC seemed intact but there is questionable weakness of the right hand. Strength of the lower extremities appeared intact and symmetric he did take a while for the patient understand instructions or testing strength. She has some difficulties understanding the finger-nose exam but was able to do it with some difficulty. Mental status exam she new issues in the hospital but she did not know the name. She did not know the name of it is City. Did not know the name of the state. Did not know the date. And did not know the president. Family relates that she would answer all these questions correctly yesterday Objective Labs Result Diagrams: 06/11/18 05:25 06/11/18 05:25 Labs: Laboratory Results - last 24 hr 06/11/18 06/11/18 06/11/18 05:00 05:25 05:25 WBC 10.7 RBC 4.75 Hgb 14.1 Hct 43.1 MCV 90.8 MCH 29.7 MCHC 32.7 RDW 14.8 Plt Count 248 Neut % (Auto) 74.9 Lymph % (Auto) 16.5 L [place] % (Auto) 6.7 Eos % (Auto) 1.2 L Baso % (Auto) 0.7 Neut # (Auto) 8000 H Lymph # (Auto) 1800 [place] # (Auto) 700 Eos # (Auto) 100 Baso # (Auto) 100 PT 10.1 INR 0.9 APTT 30 Sodium Potassium Chloride Carbon Dioxide BUN Creatinine Estimated GFR BUN/Creatinine Ratio Glucose Lactate Calcium Total Bilirubin AST ALT Alkaline Phosphatase Total Protein Albumin Globulin Albumin/Globulin Ratio Influenza A & B (PCR) Negative 06/11/18 06/11/18 05:25 05:25 WBC RBC Hgb Hct MCV MCH MCHC RDW Plt Count Neut % (Auto) Lymph % (Auto) [place] % (Auto) Eos % (Auto) Baso % (Auto) Neut # (Auto) Lymph # (Auto) [place] # (Auto) Eos # (Auto) Baso # (Auto) PT INR APTT Sodium 139 Potassium 5.0 Chloride 104 Carbon Dioxide 28 BUN 32 H Creatinine 1.00 Estimated GFR 53.3 L BUN/Creatinine Ratio 32.0 H Glucose 174 H Lactate 2.0 Calcium 10.8 H Total Bilirubin 0.4 AST 15 ALT 23 Alkaline Phosphatase 49 Total Protein 6.8 Albumin 4.0 Globulin 2.8 Albumin/Globulin Ratio 1.4 Influenza A & B (PCR) labs reviewed as above. Head CT done in the emergency room showed no acute changes typical changes of cerebral atrophy and microscopic ischemic changes stable and typical for her age. MRI is pending Assessment & Plan Assessment & Plan narrative: 1. Patient apparently had an acute neurologic event. She has very minimal if any residual motor loss. Mental competence in is significantly different than her normal. Patient normally is oriented and would answer all the questions appropriately per both daughters report. 2. Patient presumably had an acute stroke resulting in her memory impairment yet to be determined MRI forthcoming. 3. Pre-existing memory impairment that is part of the picture here patient is on Aricept for same unclear how much she so that it has been. 4. Insulin-dependent diabetes is being managed reasonably well last A1c was in March it was in the 7.5 range. 5. Chronic back pain for which she is currently using the walker she is using some marijuana product to help the same med is helping chronic back pain is not a new problem but is seemingly progressing and now requiring a walker. 6. Hypertension stable. 7. Hypothyroidism stable on medications. 8. Consult including occupational therapy speech therapy and physical therapy forthcoming. A family is adamant about the patient returning home or may need home health if his anion neurologic deficit. He 9. Discussed with the family and patient about pulse form that she had she signed a pulse form for DNR she will be labeled as such Anticipate probably 2-3 days of being hospitalized here for evaluation of her neurologic status Quality VTE Deep Vein Thrombosis/Pulmonary Embolism Present on Admission: No
[2018-06-11] MEDS: glyBURIDE 5 MG TABLET PO ×2 (12:26→21:05)
[2018-06-11] MEDS: INSULIN GLARGINE 100 UNIT/ML 3ML PEN 40 UNIT SUBCUT (12:26)
[2018-06-11] MEDS: SODIUM CHLORIDE 0.9% 1,000 ML 100 ML IV ×2 (12:26→22:26)
--- NOTE | 2018-06-11 15:16 | PT.IIE ---
Current Diagnoses Cerebral infarction, unspecified (06/11/18) Surgical History (Last Reviewed 06/11/18 @ 10:46 by Pierre Chung MD) Anesthesia (Resolved) Personal history of spine surgery (Resolved ~2003) Personal history of spine surgery (Resolved ~2005) Medical History (Last Reviewed 06/11/18 @ 10:46 by Pierre Chung MD) Cataract (Chronic ~2014) Diabetes mellitus (Chronic ~1996) Eczema (Chronic ~2013) Foot pain (Chronic ~1962) Fractures (Chronic ~1962) Hepatitis C (Chronic ~1948) Physical Therapy Inpatient Evaluation/Re-Eval M1 PT/OT-IP Prior Functional Status Start: 06/11/18 08:56 Freq: NEEDED Status: Active Protocol: Document 06/11/18 15:16 DLM (Rec: 06/11/18 15:41 DL [id number]) Medical Review Prior Functional Status Medical History Reviewed Yes Diet/Fluid Consistency Regular Communication WNL Mobility and Gait Independent gait with FWW Activities of Daily Living and IADL's Independent with ADL's Social History Household Members family Living Arrangements House Number of Floors (Floors) One Floor Number of Stairs To Enter/Railing? 3 with rail Home Environment High Toilet Home Equipment Front Wheel Walker Straight Cane Additional Social History Comment has been seeing a chiropractor to help with her back pain the last couple of months M2 PT-IP Current Condition Start: 06/11/18 08:56 Freq: NEEDED Status: Active Protocol: Document 06/11/18 15:16 DLM (Rec: 06/11/18 15:41 DL [id number]) Physical Therapy Current Condition Current Condition Evaluation Date 06/11/18 Treatment Diagnosis Right hemiplegia, impaired gait and mobility Onset Date 06/11/18 Precautions Other Precautions fall risk, impulsive, right inattention on O2 today which is not baseline M3 PT-IP Subjective Start: 06/11/18 08:56 Freq: NEEDED Status: Active Protocol: Document 06/11/18 15:16 DLM (Rec: 06/11/18 15:41 DL [id number]) Subjective Physical Therapy Visit Type Type Initial Evaluation Visit Start Time 14:40 Visit Stop Time 15:16 Total Visit Minutes 36 Number of SENIOR ENGINEERING TECH Visits 0 Physical Therapy Visit Comments Patient Comments Her daughter reports her right sided symptoms are new, she has noticed her Mother looks left first but can look right when cued Patient Goals Her daughter wants to take her home Therapy Pain Assessment Pain Present Pain Present Denied Pain M4 PT-IP Mobility and Gait Start: 06/11/18 08:56 Freq: NEEDED Status: Active Protocol: Document 06/11/18 15:16 DLM (Rec: 06/11/18 15:41 [facility] [id number]) PT-Bed Mobility Assessment Rolling Type of Rolling Roll to Left Level of Assist Standby Assistance Supine to Sit Supine to Sit Minimal Assistance Sit to Supine Sit to Supine Contact Guard Assistance Minimal Assistance Scooting Scooting to Edge of Bed Standby Assistance Scooting Up and Down in Bed Standby Assistance PT-Transfer Assessment Sit to and From Stand Sit to and from Stand Contact Guard Assistance Minimal Assistance Use of Upper Extremities Equipment Transfer Assistive Device Gait Belt Front Wheeled Walker Transfers Transfer Destination Bedside Commode Transfer Technique Stand Step Pivot Transfer Ability Level of Assist Minimal Assistance Gait Assessment Comments Gait Comments pt declined gait, too tired today PT-Balance Assessment Sitting Balance and Reactions Static Sitting Balance Ability Good Dynamic Sitting Balance Ability Fair Standing Balance and Reactions Static Standing Balance Ability Fair Dynamic Standing Balance Ability Fair Device Used FWW M5 PT-IP Objective Assessments Start: 06/11/18 08:56 Freq: NEEDED Status: Active Protocol: Document 06/11/18 15:16 DLM (Rec: 06/11/18 15:41 [facility] [id number]) Orientation Orientation/Cognition Level of Alertness Alert Orientation Name Year Language Function Ability Word Finding Difficulties Safety Awareness Decreased Safety Awareness Comments Impulsive, speech impairments make it hard to fully assess her cognitive status Gross Range of Motion Upper Extremity ROM Assessment Within Functional Limits Lower Extremity ROM Assessment Within Functional Limits Strength Upper Extremity Strength Assessment Within Functional Limits Lower Extremity Strength Assessment Within Functional Limits Coordination Assessment Gross Coordination Gross Coordination Impaired Assessment Finger to Nose Test Moderate Impairment Coordination Comments right UE impaired Sensation Assessment Sensation Gross Sensation Right UE Impaired Proprioception (Position) Impaired Comments Sensation Comments no numbness/tingling reported, unable to fully assess proprioception in right LE due to difficulty following instructions and speech deficits Muscle Tone Muscle Tone WNL Yes M7 PT-IP Assessment and Plan Start: 06/11/18 08:56 Freq: NEEDED Status: Active Protocol: Document 06/11/18 15:16 DL (Rec: 06/11/18 15:41 [facility] [id number]) PT Summary Assessment and Plan Potential Rehabilitation Potential Good Status of Condition at Evaluation Evolving Summary Impairments Strength Balance Bed Mobility Transfers Gait Activity Tolerance Assessment Summary Isabella presents with neurological deficits on her right side and affecting her speech/language. She is inattentive to her right side. She is impulsive during mobility. She shows limited awareness of her deficits. She tolerated a transfer up to the bedside commode to urinate but declined to attempt gait this visit. She has a supportive daughter at bedside . Her daughter wants to take her home and assist her. The patient could benefit from SNF rehab. If she goes home with her daughter I recommend she have home health therapy. Goals Bed Mobility Goal Independent Transfer Goal Contact Guard Assistance Front Wheeled Walker Gait Goal Minimal Assistance Front Wheel Walker Gait Distance 100 feet Other Goals Up and down 3 steps with rail and min assist. Days to Meet Goals 4 Frequency of Treatment Frequency Of Treatment Twice a Day Treatment Plan Physical Therapy Treatment Plan Bed Mobility Training Transfer Training Gait Training Therapeutic Exercise Balance Retraining Discharge Planning Neuromuscular Re-ed Coordination Retraining Recommendations To Nursing Amount of Assist Needed 1 Person Assist Discharge Recommendations PT Discharge Recommendations Home with 19/10 Assist Home Health Other Discharge Recommendations she could benefit from SNF but her daughter wants to take her home
--- NOTE | 2018-06-11 15:30 | ST.IPCSEOM ---
Care Team Visit Care Team Role Provider Type Sarah De Dios DO Family Provider Physician Specialty: Family Practice Address: [address] [place] [address], [id number] Email: [email or web address] Aminata Kebede DO Emergency Provider Physician Specialty: Emergency Medicine Address: [address] [place] [address], [id number] Email: Pierre Chung MD Admit Provider Physician Attending Provider Primary Care Provider Specialty: [facility] Practice Address: [address] [place] [address], [id number] Email: [email or web address] Current Diagnoses Cerebral infarction, unspecified (06/11/18) Past Medical History (Last Reviewed 06/11/18 @ 10:46 by Pierre Chung MD) Cataract (Chronic Medical ~2014) Diabetes mellitus (Chronic Medical ~1996) Eczema (Chronic Medical ~2013) Foot pain (Chronic Medical ~1962) Fractures (Chronic Medical ~1962) Hepatitis C (Chronic Medical ~1948) Speech-Language Pathology Swallow Evaluation 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 Curry Reason for Referral Dysphagia Setting Assessment Location Acute Care Visit Type Note Type Initial Evaluation Next Note Type Next Note Type Re-Evaluation Patient Information Identification Type Name ID Wristband History Patient admitted through the ER earlier this morning. Patient went to bed her usual time and apparently was normal . The patient awakened approximately 2:00 a.m. per her usual to go to the bathroom. Daughter was awake at the time. Daughter heard the patient yell and found patient on the side on the floor with her walker on the the side. The daughter got the patient back on bed and noted that the patient had weakness of the right arm and with drooping of the right side her face and called the paramedics. Paramedics brought patient to the emergency room where she was evaluated and felt to have experienced an acute CVA resulting in right-sided weakness and mental confusion. Once in her room, nursing reported that the pt had passed a swallow screen; however about 5 minutes after screen, Pt started wretching and turned red following some applesauce fed to her by another daughter. Pt eventually was able to breath and did not have emises, but excessive saliva production with drooling on right side. Pt was put on NPO pending swallow evaluation. Subjective Observations Pt in her room sitting up in bed. Pt's daughter, Malu, was in the room with her. Evaluation Liquids Trialed Ice Chips Thin Solids Trialed Puree Dysphagia Mechanical Dysphagia Advanced Mechanical Soft Administration Type Tea Spoon Cup Single Sip Cup Consecutive Sips Straw Oral Impairment Mildly Impaired Oral Strategies Upright at 90 degrees Controlled Bite/Sip Size Oral Phase Comments Pt OM exam indicated that the pt demonstrated mild loss of lingual ROM and coordination. Dentition adequate for mastication. Diadochokinesis mildly slow and mildly uncoordinated. Mastication of a soft sandwich was adequate with some residual in mouth post swallow, not thought to be pathologic. Good bolus formation and adequate A-P transition with trials provided. Pharyngeal Impairment WFL Pharyngeal Strategies Sitting Upright (90 deg) Small Bites and Sips Pharyngeal Phase Comments During the swallowing evaluation, trials were presented slowly to prevent emisis. According to the daughter, pt eats rapidly with large amounts per bite, which may explain the emisis reported by nursing. The pt's pharyngeal phase appeared to be WFL: good hyolaryngeal elevation and forward excursion of hyoid bone, clear voicing post swallow. Time for bolus to pass was allowed to avoid emisis or difficulty with transition into the esophagus. No overt s/sx aspiration. No choking observed . delayed cough x2 during evaluation, not thought to be swallow related. All trials swallowed without emisis. Findings Dysphagia Type Mild-moderate pharyngeal phase dysphagia Rehabilitation Potential Poor Impressions Pt presents with mild- moderate pharyngeal phase dysphagia secondary to stroke- like symptoms. Pt did not have emisis nor was observed to have difficultly with swallowing. Earlier episod of emisis with turning red was not observed; however, precautionary steps to reduce aspiration risk are indicated. Pt is reported to be impulsive and will self-feed with large bites very quickly, necessitating 1:1 supervision. Altered diet is recommended to avoid choking/aspiration as well. Pt remains confused. Diet Recommendations Liquids Order Thin Diet Order Dysphagia Advanced Medication Recommendations Whole in Carrier Crushed in Carrier One at a Time Additional Dietary Needs 1:1 Supervision 1:1 Assistance Aspiration Precautions Recommended Precautions Upright at 90 Degrees Small Bites/Sips Additional Precautions Eat and drink slowly Treatment Plan Appropriate for Therapy Yes Therapy Recommendations Swallowing therapy Dysphagia Goals Pt will safely tolerate the least restrictive diet without s/sx aspiration to meet nutrition and hydration needs. Pt's diet and self-feeding will be advanced as tolerated to increase independence. Pt will implement safe swallow strategies to reduce risk of aspiration. Referrals/Other Recommended Referrals Dietary Consult
--- NOTE | 2018-06-11 15:56 | ST.IPIE ---
Care Team Visit Care Team Role Provider Type Sarah De Dios DO Family Provider Physician Specialty: Family Practice Address: [address] [place] [address], [id number] Email: [email or web address] Aminata Kebede DO Emergency Provider Physician Specialty: Emergency Medicine Address: [address] [place] [address], [id number] Email: Pierre Chung MD Admit Provider Physician Attending Provider Primary Care Provider Specialty: Family Practice Address: [address] [place] [address], [id number] Email: [email or web address] Current Diagnoses Cerebral infarction, unspecified (06/11/18) Past Medical History (Last Reviewed 06/11/18 @ 10:46 by Pierre Chung MD) Cataract (Chronic Medical ~2014) Diabetes mellitus (Chronic Medical ~1996) Eczema (Chronic Medical ~2013) Foot pain (Chronic Medical ~1962) Fractures (Chronic Medical ~1962) Hepatitis C (Chronic Medical ~1948) ST IP Initial Evaulation Report MICROWAVE REMOTE SENSING SCIENTIST Clinical Swallow Evaluation Start: 06/11/18 14:54 Freq: Status: Active Protocol: Document 06/11/18 14:54 LNK (Rec: 06/11/18 15:30 LNK [id number]) Clinical Swallow Evaluation Session Time Visit Start Time 13:00 Visit Stop Time 13:45 Total Visit Minutes [address] Chung Reason for Referral Dysphagia Setting Assessment Location Acute Care Visit Type Note Type Initial Evaluation Next Note Type Next Note Type Re-Evaluation Patient Information Identification Type Name ID Wristband History Patient admitted through the ER earlier this morning. Patient went to bed her usual time and apparently was normal . The patient awakened approximately 2:00 a.m. per her usual to go to the bathroom. Daughter was awake at the time. Daughter heard the patient yell and found patient on the side on the floor with her walker on the the side. The daughter got the patient back on bed and noted that the patient had weakness of the right arm and with drooping of the right side her face and called the paramedics. Paramedics brought patient to the emergency room where she was evaluated and felt to have experienced an acute CVA resulting in right-sided weakness and mental confusion. Once in her room, nursing reported that the pt had passed a swallow screen; however about 5 minutes after screen, Pt started wretching and turned red following some applesauce fed to her by another daughter. Pt eventually was able to breath and did not have emises, but excessive saliva production with drooling on right side. Pt was put on NPO pending swallow evaluation. Subjective Observations Pt in her room sitting up in bed. Pt's daughter, Malu, was in the room with her. Evaluation Liquids Trialed Ice Chips Thin Solids Trialed Puree Dysphagia Mechanical Dysphagia Advanced Mechanical Soft Administration Type Tea Spoon Cup Single Sip Cup Consecutive Sips Straw Oral Impairment Mildly Impaired Oral Strategies Upright at 90 degrees Controlled Bite/Sip Size Oral Phase Comments Pt OM exam indicated that the pt demonstrated mild loss of lingual ROM and coordination. Dentition adequate for mastication. Diadochokinesis mildly slow and mildly uncoordinated. Mastication of a soft sandwich was adequate with some residual in mouth post swallow, not thought to be pathologic. Good bolus formation and adequate A-P transition with trials provided. Pharyngeal Impairment WFL Pharyngeal Strategies Sitting Upright (90 deg) Small Bites and Sips Pharyngeal Phase Comments During the swallowing evaluation, trials were presented slowly to prevent emisis. According to the daughter, pt eats rapidly with large amounts per bite, which may explaing the emisis reported by nursing. The pt's pharyngeal phase appeared to be WFL: good hyolaryngeal elevation and forward excursion of hyoid bone, clear voicing post swallow. Time for bolus to pass was allowed to avoid emisis or difficulty with transition into the esophagus. No overt s/sx aspiration. No choking observed . delayed cough x2 during evaluation, not thought to be swallow related. All trials swallowed without emisis. Findings Dysphagia Type Mild-moderate pharyngeal phase dysphagia Rehabilitation Potential Poor Impressions Pt presents with mild- moderate pharyngeal phase dysphagia secondary to stroke- like symptoms. Pt did not have emisis nor was observedto have difficutly with swallowing. Earlier episod of emisis with turning red was not observed; however, precautionary steps to reduce aspiration risk are indicated. Pt is reported to be impulsive and will self-feed with large bites very quickly, necessitating 1:1 supervision. Altered diet is recommended to avoid choking/aspiration as well. Pt remains confused. Diet Recommendations Liquids Order Thin Diet Order Dysphagia Advanced Medication Recommendations Whole in Carrier Crushed in Carrier One at a Time Additional Dietary Needs 1:1 Supervision 1:1 Assistance Aspiration Precautions Recommended Precautions Upright at 90 Degrees Small Bites/Sips Additional Precautions Eat and drink slowly Treatment Plan Appropriate for Therapy Yes Therapy Recommendations Swallowing therapy Dysphagia Goals Pt will safely tolerate the least restrictive diet without s/sx aspiration to meet nutrition and hydration needs. Pt's diet and self-feeding will be advanced as tolerated to increase independence. Pt will implement safe swallow strategies to reduce risk of aspiration. Referrals/Other Recommended Referrals Dietary Consult [employer] REMOTE SENSING SCIENTIST Language Evaluation Start: 06/11/18 14:54 Freq: Status: Active Protocol: Document 06/11/18 15:33 LNK (Rec: 06/11/18 15:35 LNK [id number]) Language Evaluation Session Time Visit Start Time 13:45 Visit Stop Time 14:30 Total Visit Minutes 45 Next Note Type Next Note Type Treatment Note Referral Referring Physician Dr. Chung Past Medical History Patient History Patient admitted through the ER earlier this morning. Patient went to bed her usual time and apparently was normal . The patient awakened approximately 2:00 a.m. per her usual to go to the bathroom. Daughter was awake at the time. Daughter heard the patient yell and found patient on the side on the floor with her walker on the the side. Patient not use a walker at home to be for ambulation. The daughter got the patient back on bed and noted that the patient had weakness of the right arm and with drooping of the right side her face and called the paramedics. Paramedics brought patient to the emergency room where she was evaluated and felt to have experienced an acute CVA resulting in right-sided weakness and mental confusion. Patient currently is being evaluated by neurologist Dr. rossi in [place] for memory impairment and apparently if she is having some neck and patient's symptoms and ordered MRI of her neck. The patient has had problems with memory impairment over the last several weeks and is being treated for same with donepezil. [place] Language Language(s) Spoken in the Home [place] Previous Therapy Previous Speech-Language Therapy No Oral Motor Examination Oral Motor Exam Completed No Results slow and uncoordination of tongue and diadochokinesis Subjective Subjective Pt sitting upright in bed with daughter in room. According to the daughter, Malu, the pt began showing difficulty with language comprehension and expression within a few minutes of falling. She was unresponsive to the daughter' s prompts to answer questions. Additionally, she was not speaking in a manner that made sense. Nursing reported that the pt was having difficulty with comprehension/expression as well. - Informal Assessment Receptive Language Normal No Expressive Language Normal No Articulation Normal No Cognition Normal No Assessment Findings Informal observation of the pt 's language indicated improvement over the daughter' s report from immediately after falling. Pt was observed to follow single step directions with a slight response delay. She was also able to understand and answer simple questions. The pt was oriented to person, place, time. She knew she was in [facility], but was not able to tell me why she was in the hospital. She could name her children 4/5 accurately, look at the clock and tell the time and point to objects in the room. Her speech was mildly dysarthric, but intelligible. Cognitively she was impulsive, mildly confused when asked more complicated questions. For example, she could accurately answer a question, but when asked to provide more information or explain, she just stared, not responding. Recommendations A complete formal aphasia/ cognitive assessment is recommended either while inpatient, or as outpatient following discharge. Speech/cognitive therapy while inpatient as well as at outpatient following discharge . - Receptive Language Yes/No Questions Skill Level Mildly Impaired Following Directions - Verbal Skill Level Moderately Impaired Defining Words Skill Level Moderately Impaired - Expressive Language Automatic Speech Skill Level Mildly Impaired Object Naming Skill Level Moderately Impaired Oral Expression Skill Level Moderately Impaired - Findings Language Findings Pt presents with receptive/ expressive language deficits as well as cognition deficits following possible CVA. Recommendations Recommendations Speech therapy/Cognitive therapy Treatment Goals Short Term Goals pt will be able to answer questions to nursing and staff regarding her needs with more that 3 word phrases. Pt will follow directions in order to participate in therapies successfully to gain independence in her ADLS.
[2018-06-11] MEDS: METFORMIN HCL 500 MG TABLET 1000 MG PO (16:54)
[2018-06-11] MEDS: LOVASTATIN 20 MG TABLET PO (16:54)
[2018-06-11] MEDS: DONEPEZIL 5 MG TABLET PO (21:05)
--- NOTE | 2018-06-11 22:52 | PC.NURSE ---
Pt has on tele normal sinus/w block first degree AV, Normal Sinus rhythm at 1938. Losartan held today due to low diastolic BP 120/56. securement for IV was done at 1548. Pt is on 2 liters o2 NC. NIH scale of 7. Pt has expressive and receptive aphasia.
[2018-06-12 00:10] VITALS: BP 120/60; PULSE 79; RESP 16; TEMP 36.4; O2SAT 96
[2018-06-12 00:30] VITALS: O2SAT 97
--- NOTE | 2018-06-12 00:44 | PC.NURSE ---
0030 Pt. was sound asleep when I checked her @ 0030. Noted skin was clammy, pillow cases & bed sheet wet. Checked her CBG only 42. Pt. was awake & able to swallow her saliva. Given apple juice, regular chocolate pudding & 240 cc of milk. Will recheck her CBG., cont. POC & monitor.
[2018-06-12 04:00] VITALS: BP 117/51; PULSE 73; RESP 22; TEMP 36.2; O2SAT 96
[2018-06-12] MEDS: LEVOTHYROXINE 50 MCG TABLET PO (05:30)
[2018-06-12 06:32] LABS: BUN Creatinine Ratio 23.8 (6-22); Blood Urea Nitrogen 19 mg/dL (7-17); Calcium 9.7 mg/dL (8.4-10.2); Carbon Dioxide 25 mmol/L (22-32); Chloride 106 mmol/L (98-107); Estimated Glomerular Filt Rate > 60.0 mL/min (>60); Glucose 136 mg/dL (80-110); HEMOLYSIS < 15 (0-50); Magnesium 1.3 mg/dL (1.6-2.3); Potassium 4.3 mmol/L (3.4-5.1); Sodium 137 mmol/L (137-145)
[2018-06-12] MEDS: SODIUM CHLORIDE 0.9% 1,000 ML 100 ML IV (06:45)
[2018-06-12 09:04] VITALS: O2SAT 96
--- NOTE | 2018-06-12 09:07 | CM.DANOTE ---
DCP: Case received, EMR reviewed and met with patient. Introduced self and role. DCP template completed with information currently available. Patient is an 82 year old female who admitted yesterday morning to the care of the hospitalist team. PCP: Dr. Chung. Payer: confirmed: Medicare/[employer]. Patient came to hospital via ambulance due to symptoms of CVA. Patient had collapsed at home, and was having some right sided deficit. Met with patient, her daughter, Malu, who she resides with, was in the room, as well as her 16 year old grandson. Malu stated that she is the POA. Her phone number is: [phone]. She also has another daughter named Gunjan. Patient is a . Met with her and family. Alert and oriented, no noted slurring or facial droop. Was eating her breakfast with no noted deficits. P: DCP to continue to follow closely. May need to work with physical therapy before discharge. Will see what her primary provider states today. Ines Ash RN/[employer]
[2018-06-12 09:17] VITALS: BP 119/59; PULSE 77; RESP 16; TEMP 36.7; O2SAT 94
[2018-06-12] MEDS: METFORMIN HCL 500 MG TABLET 1000 MG PO (09:39)
[2018-06-12] MEDS: ESTRADIOL 1 MG TABLET PO (09:40)
[2018-06-12] MEDS: FUROSEMIDE 20 MG TABLET PO (09:40)
[2018-06-12] MEDS: glyBURIDE 5 MG TABLET PO (09:40)
[2018-06-12] MEDS: INSULIN GLARGINE 100 UNIT/ML 3ML PEN 40 UNIT SUBCUT (09:41)
--- NOTE | 2018-06-12 10:42 | PM.DS.1 ---
History of Present Illness Chief complaint: possible stroke Narrative: Right-sided weakness Patient admitted through the ER earlier this morning. Patient went to bed her usual time and apparently was normal. The patient awakened approximately 2:00 a.m. per her usual to go to the bathroom. Daughter was awake at the time. Daughter heard the patient yell and found patient on the side on the floor with her walker on the the side. Patient not use a walker at home to be for ambulation. The daughter got the patient back on bed and noted that the patient had weakness of the right arm and with drooping of the right side her face and called the paramedics. Paramedics brought patient to the emergency room where she was evaluated and felt to have experienced an acute CVA resulting in right-sided weakness and mental confusion. Patient currently is being evaluated by neurologist Dr. rossi in [place] for memory impairment and apparently if she is having some neck and patient's symptoms and ordered MRI of her neck. The patient has had problems with memory impairment over the last several weeks and is being treated for same with donepezil. Other medical problems include insulin-dependent diabetes, hypertension, hyperlipidemia, and memory impairment as stated Discharge Providers Date of admission: 06/11/18 08:22 Discharge Date: 06/12/18 Primary care physician: Pierre Chung MD Consults: 06/11/18 08:24 Consult to Occupational Therapy Evaluate & Treat Comment: Physician Instructions: Evaluate and treat Consult to Physical Therapy Evaluate & Treat Comment: Physician Instructions: Evaluate and Treat 06/11/18 08:33 Consult to Speech Therapy Evaluate & Treat Comment: Physician Instructions: Evaluate and treat 06/11/18 10:35 Consult to Occupational Therapy Evaluate & Treat Comment: Physician Instructions: Evaluate and treat Consult to Physical Therapy Evaluate & Treat Comment: Physician Instructions: Evaluate and Treat Consult to Quality Assurance Qa Lab Technician Routine Comment: home health Discharge provider: Pierre Chung MD Summary Discharge Diagnosis: 1. Transient ischemic attack. 2. Pre-existing memory impairment. 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 4. Pre-existing back pain resulting in ambulation with walker. 5. Diabetes stable. 6. Hypertension stable 7. Hypothyroidism stable. Hospital Course: The patient was admitted yesterday morning for evaluation of a neurologic event. The event included weakness of the right side and has some facial asymmetry. Evaluation emergency room was unremarkable when she was admitted for observation and more in further evaluation. Evaluation included MRI of the head that showed no acute stroke in also showed no chronic stroke. MRI did show significant cerebral atrophy as well as some microvascular ischemic changes that is typical for her agent for her memory impairment. Additionally she had a CT of her neck that was ordered by Dr. rossi showed some degenerative changes but nothing acute. Remainder of her stay was normal. Her neurologic deficit totally resolved today on discharge she is oriented x3 she is ambulatory 2 with 3 baseline she had no evidence for any asymmetry of her muscle strength. She has good support with her 2 daughters 1 lives with her. Patient discharged on but may maintenance meds. Of note her magnesium on the low side as she will be recommended strip picker some magnesium [id number] take it twice a day for awhile and will follow up as an outpatient. Status at Discharge Cognitive/behavioral status at discharge: at baseline, oriented Functional status at discharge: uses cane/walker Overall status at discharge: patient is back to baseline Time Spent with Patient Greater than 30 minutes Exam Vital Signs (past 8 hours): - 06/12/18 04:00 06/12/18 09:04 06/12/18 09:17 Temperature 97.2 F L 98.0 F Pulse Rate 73 77 Respiratory Rate 22 16 Blood Pressure 117/51 L 119/59 L Pulse Oximetry 96 96 94 Oxygen Delivery Method Room Air Oxygen Flow Rate 0 Narrative Exam Narrative: Gen.: Skin: Warm well perfused. No prominent lesions. Nonicteric. HEENT: PERRL., normal EOM, external ears canals TMs normal, nasal mucosa normal and midline septum, oropharynx without lesions. Neck: Trachea midline. Thyroid nontender and not enlarged. Carotids without bruits. No lymphadenopathy Back: No obvious deformity or tenderness. Chest: Clear to P&A. Symmetric. CV: RRR no murmur or gallop. No JVD. Abdomen: No masses bruits tenderness or visceromegaly. Neuro: Cranial nerves II through XII grossly intact. Sensory and motor exams intact. Gait normal. Mental status: Intact for screening Extremities: No cyanosis clubbing or edema Musculoskeletal: No gross deformities Lymphatics: Negative for lymphadenopathy, supraclavicular axillary or inguinal . Neurologic exam cranial nerves 2-12 intact. Finger-nose normal. Oriented to place. She thought today however was some June 03. Aware of date and with her current president is. Mental status essentially back to her baseline Objective Labs Result Diagrams: 06/11/18 05:25 06/12/18 05:48 Labs: Laboratory Results - last 24 hr 06/12/18 05:48 Sodium 137 Potassium 4.3 Chloride 106 Carbon Dioxide 25 BUN 19 H Creatinine 0.80 Estimated GFR > 60.0 BUN/Creatinine Ratio 23.8 H Glucose 136 H Calcium 9.7 Magnesium 1.3 L Discharge Plan Discharge Plan Patient Disposition: Home Discharge comment: appt w Dr. Proctor to discuss aspirin has appt w Brett end of month Discharge Med Rec/Prescriptions Prescriptions: Continued miscellaneous medical supply misc .Route .MEDSUPPLY Qty: 1 RF: 0 blood sugar diagnostic [Blood Glucose Test] strip .ROUTE .MEDSUPPLY Qty: 100 RF: 3 metformin 1,000 mg tablet 1,000 mg PO BIDCC Qty: 180 RF: 3 lovastatin 20 mg tablet 20 mg PO QPM Qty: 90 RF: 3 furosemide 20 mg tablet 20 mg PO QAM Qty: 90 RF: 3 estradiol 1 mg tablet 1 mg PO QAM Qty: 90 RF: 3 glyburide 5 mg tablet 5 mg PO BID Qty: 180 RF: 3 insulin syringe,safetyneedle [Assure ID Insulin Safety] 0.5 mL 29 gauge x 1/2 syringe .ROUTE .MEDSUPPLY Qty: 500 RF: 0 donepezil 5 mg tablet 5 mg PO BEDTIME RF: 0 levothyroxine 50 mcg tablet 50 mcg PO DAILY RF: 0 losartan 100 mg tablet 100 mg PO QPM RF: 0 Lantus Solostar U-100 Insulin 100 unit/mL (3 mL) Insulin Pen 40 unit SUBCUT DAILY RF: 0 Follow up/Referrals: Pierre Chung MD [Primary Care Provider] - Provider Discharge Instructions Diet: Diet as Tolerated Visit Report/Discharge Packet Instructions: DI for Transient Ischemic Attack Discharge Data Primary Care Provider: Pierre Chung Attending Provider: Pierre Chung Admit Date/Time: 06/11/18 08:22 Quality VTE Deep Vein Thrombosis/Pulmonary Embolism Present on Admission: No
--- NOTE | 2018-06-12 10:54 | PT.IPTN ---
Current Diagnoses Cerebral infarction, unspecified (06/11/18) Physical Therapy Treatment Note M2 PT-IP Current Condition Start: 06/11/18 08:56 Freq: NEEDED Status: Active Protocol: Document 06/11/18 15:16 DLM (Rec: 06/11/18 15:41 DLM [id number]) Physical Therapy Current Condition Current Condition Evaluation Date 06/11/18 Treatment Diagnosis Right hemiplegia, impaired gait and mobility Onset Date 06/11/18 Precautions Other Precautions fall risk, impulsive, right inattention on O2 today which is not baseline M3 PT-IP Subjective Start: 06/11/18 08:56 Freq: NEEDED Status: Active Protocol: Document 06/12/18 09:37 CLB (Rec: 06/12/18 10:54 CLB [id number]) Subjective Physical Therapy Visit Type Type Treatment Note Visit Start Time 09:37 Visit Stop Time 09:53 Total Visit Minutes 16 Notes daughter present for CG training this morning. Number of MECHANICAL TECHNICAL SERVICE SPECIALIST Visits 1 Physical Therapy Visit Comments Patient Comments Pt feeling much better. Patient Goals Her daughter wants to take her home Therapy Pain Assessment Pain Present Pain Present Denied Pain M4 PT-IP Mobility and Gait Start: 06/11/18 08:56 Freq: NEEDED Status: Active Protocol: Document 06/12/18 09:37 CLB (Rec: 06/12/18 10:54 CLB [id number]) PT-Bed Mobility Assessment Supine to Sit Supine to Sit Standby Assistance Scooting Scooting to Edge of Bed Standby Assistance PT-Transfer Assessment Sit to and From Stand Sit to and from Stand Contact Guard Assistance Use of Upper Extremities Equipment Transfer Assistive Device Gait Belt Front Wheeled Walker Transfers Transfer Destination Bed Chair Wheelchair Transfer Technique Stand Step Pivot Transfer Ability Level of Assist Contact Guard Assistance Comments Mobility Comments Pt improved with bed mobility and transfers needing cues for hand placement for safety. Gait Assessment Gait Gait Assistance Required: Contact Guard Assist 1 Person Assist Distance (Feet) 100 Assistive Devices Assistive Device Gait Belt Front Wheeled Walker Orthotic/Prosthetic Devices or Brace: No Gait Deviations General Gait Pattern Decreased Stride Length Decreased Feet Clearance Flexed Trunk Factors Limiting Gait Function Factors Limiting Gait Function Decreased Activity Tolerance Decreased Sensation Decreased Strength Poor Balance Poor Safety Awareness Comments Gait Comments Pt able to ambulate in laws to stairs for stair trainging ~ 100ft. Pt requires CGA for safety. Stair Climbing Assessment Evaluation Level of Assist On Stairs Contact Guard Assistance 1 Person Assistance Devices Stair Climbing Assistive Devices Left Railing Right Railing Technique/Endurance Stair Climbing Direction Ascend and Descend Stair Climbing Technique Step to Step Number of Steps Climbed 3 Query Text: Stair Climbing Set # Repetitions (reps) 1 Comments Stair Climbing Comments Pt able to climb stairs with CGA and use of GB for safety. Daughter present for training. PT-Balance Assessment Sitting Balance and Reactions Static Sitting Balance Ability Good Dynamic Sitting Balance Ability Fair Standing Balance and Reactions Static Standing Balance Ability Fair Dynamic Standing Balance Ability Fair Device Used FWW M5 PT-IP Objective Assessments Start: 06/11/18 08:56 Freq: NEEDED Status: Active Protocol: Document 06/11/18 15:16 DLM (Rec: 06/11/18 15:41 DLM [id number]) Orientation Orientation/Cognition Level of Alertness Alert Orientation Name Year Language Function Ability Word Finding Difficulties Safety Awareness Decreased Safety Awareness Comments Impulsive, speech impairments make it hard to fully assess her cognitive status Gross Range of Motion Upper Extremity ROM Assessment Within Functional Limits Lower Extremity ROM Assessment Within Functional Limits Strength Upper Extremity Strength Assessment Within Functional Limits Lower Extremity Strength Assessment Within Functional Limits Coordination Assessment Gross Coordination Gross Coordination Impaired Assessment Finger to Nose Test Moderate Impairment Coordination Comments right UE impaired Sensation Assessment Sensation Gross Sensation Right UE Impaired Proprioception (Position) Impaired Comments Sensation Comments no numbness/tingling reported, unable to fully assess proprioception in right LE due to difficulty following instructions and speech deficits Muscle Tone Muscle Tone WNL Yes M7 PT-IP Assessment and Plan Start: 06/11/18 08:56 Freq: NEEDED Status: Active Protocol: Document 06/12/18 09:37 CLB (Rec: 06/12/18 10:54 CLB [id number]) PT Summary Assessment and Plan Potential Rehabilitation Potential Good Summary Impairments Strength Balance Bed Mobility Transfers Gait Activity Tolerance Assessment Summary Pt greatly improved today with all mobility. Pt able to communicate and understand all directions for bed mobility, gait and stair training. Pt was SBA to EOB, CGA for sit<> stand with cues for hand placement and CGA for stair climbing and ambulation. Pt was able to use both hands on FWW and manage the walker on her own. Goals Bed Mobility Goal Independent Transfer Goal Contact Guard Assistance Front Wheeled Walker Gait Goal Minimal Assistance Front Wheel Walker Other Goals Up and down 3 steps with rail and min assist. Days to Meet Goals 4 Frequency of Treatment Frequency Of Treatment Twice a Day Treatment Plan Physical Therapy Treatment Plan Bed Mobility Training Transfer Training Gait Training Therapeutic Exercise Balance Retraining Discharge Planning Neuromuscular Re-ed Coordination Retraining Recommendations To Nursing Amount of Assist Needed 1 Person Assist Discharge Recommendations PT Discharge Recommendations Home with 19/10 Assist Home Health Other Discharge Recommendations .
== END 2018-06-12 10:55 | disposition home or self-care (01) ==
LOC: ED 07:44 → AC 13:23
PROVIDERS: Admitting Provider Family Medicine; Emergency Provider Emergency Medicine; Family Provider Family Medicine; PCP Family Medicine; Visit Provider Family Medicine
DX: G45.9 Transient cerebral ischemic attack, unspecified (principal); R29.818 Other symptoms and signs involving the nervous system; R29.706 NIHSS score 6; R47.01 Aphasia; R41.3 Other amnesia; E11.9 Type 2 diabetes mellitus without complications; Z79.4 Long term (current) use of insulin; G89.29 Other chronic pain; I10 Essential (primary) hypertension; E03.9 Hypothyroidism, unspecified; M54.9 Dorsalgia, unspecified
CPT/HCPCS: 36415; 70460; 70551; 71045; 80048; 80053; 82962; 83605; 83735; 85025; 85610; 85730; 87040; 87400; 92610; 93005; 93041; 93306; 94640; 94760; 96105; 96374; 97116; 97162; 99217; 99220; 99284; 99285; 99291; G0378; J2405

== ENCOUNTER → 2018-07-18 08:07 | Outpatient (CLI) | payer MEDICARE, SELFPAY ==
[2018-06-11 08:24] VITALS: BMI 39.4
[2018-07-18 08:38] LABS: Add Manual Diff / Slide Review NO; Basophils Absolute Auto 100 /uL (0-100); Basophils Percent Auto 0.6 % (0-2); Eosinophils Absolute Auto 100 /uL (0-450); Eosinophils Percent Auto 1.5 % (2-4); Hemoglobin 13.9 g/dL (12.0-16.0); Hemoglobin A1C% w Est Avg Glu 6.5 % (4.0-6.0); Lymphocytes Absolute Auto 1600 /uL (1100-4500); Lymphocytes Percent Auto 19.7 % (25-40); Mean Corpuscular HGB Conc 32.4 % (30-36); Mean Corpuscular Hemoglobin 29.7 PG (26-34); Mean Corpuscular Volume 91.6 fL (80-100); Monocytes Absolute Auto 500 /uL (0-900); Monocytes Percent Auto 6.5 % (3-14); Neutrophils Absolute Auto 5900 /uL (1500-7000); Neutrophils Percent Auto 71.7 % (50-75); Platelet Count 242 X10^3/uL (150-400); Red Blood Cell Count 4.69 X10^6/uL (4.0-5.2); Red Cell Distribution Width 14.4 % (11.6-14.8); White Blood Cell Count 8.2 X10^3/uL (4.5-11.0)
[2018-07-18 09:42] LABS: Alanine Aminotransferase 19 IU/L (9-52); Albumin Globulin Ratio 1.7 (1.0-2.8); Alkaline Phosphatase 52 U/L (38-126); Aspartate Aminotransferase 16 IU/L (14-36); BUN Creatinine Ratio 18.8 (6-22); Bilirubin Total 0.5 mg/dL (0.2-1.3); Blood Urea Nitrogen 15 mg/dL (7-17); Calcium 10.9 mg/dL (8.4-10.2); Carbon Dioxide 28 mmol/L (22-32); Chloride 102 mmol/L (98-107); Cholesterol 136 mg/dL (140-199); Estimated Glomerular Filt Rate > 60.0 mL/min (>60); Globulin 2.4 g/dL (1.7-4.1); Glucose 81 mg/dL (80-110); HDL Cholesterol 63 mg/dL (40-60); HEMOLYSIS 16 (0-50); LDL Cholesterol Calculated 46 mg/dL (<100); Sodium 139 mmol/L (137-145); Total Protein 6.4 g/dL (6.3-8.2); Triglycerides 137 mg/dL (35-150)
[2018-07-18 09:43] LABS: Potassium 5.5 mmol/L (3.4-5.1)
[2018-07-18 10:06] LABS: Thyroid Stimulating Hormone 2.22 uIU/mL (0.47-4.68)
[2018-07-18 15:19] LABS: Creatinine Urine Random 44.8 mg/dL
[2018-07-18 15:25] LABS: Microalbumi Creatinin Ratio Ur 13.3 ug/mg CR (<30); Microalbumin Urine Random 0.6 mg/dL (0-1.6)
== END ==
PROVIDERS: PCP Family Medicine; Visit Provider Family Medicine
DX: E11.9 Type 2 diabetes mellitus without complications (principal); E78.2 Mixed hyperlipidemia; I10 Essential (primary) hypertension
CPT/HCPCS: 36415; 80053; 80061; 82043; 82570; 83036; 84443; 85025

== ENCOUNTER → 2018-08-17 14:54 | Outpatient (CLI) | payer MEDICARE, SELFPAY ==
[2018-06-11 08:24] VITALS: BMI 39.4
[2018-08-17 16:31] LABS: Hemoglobin A1C% w Est Avg Glu 6.7 % (4.0-6.0)
[2018-08-17 17:55] LABS: Creatinine Urine Random 84.3 mg/dL
[2018-08-17 17:56] LABS: Microalbumi Creatinin Ratio Ur 11.8 ug/mg CR (<30)
[2018-08-17 18:55] LABS: BUN Creatinine Ratio 17.5 (6-22); Blood Urea Nitrogen 14 mg/dL (7-17); Calcium 10.8 mg/dL (8.4-10.2); Carbon Dioxide 25 mmol/L (22-32); Chloride 98 mmol/L (98-107); Estimated Glomerular Filt Rate > 60.0 mL/min (>60); Glucose 157 mg/dL (80-110); HEMOLYSIS 21 (0-50); Sodium 137 mmol/L (137-145)
== END ==
PROVIDERS: PCP Family Medicine; Visit Provider Family Medicine
DX: E11.9 Type 2 diabetes mellitus without complications (principal)
CPT/HCPCS: 36415; 80048; 82043; 82570; 83036

== ENCOUNTER → 2018-10-17 08:14 | Outpatient (CLI) | payer MEDICARE, SELFPAY ==
[2018-06-11 08:24] VITALS: BMI 39.4
[2018-10-17 10:04] LABS: Hemoglobin A1C% w Est Avg Glu 6.5 % (4.0-6.0)
[2018-10-17 10:34] LABS: BUN Creatinine Ratio 18.9 (6-22); Blood Urea Nitrogen 17 mg/dL (7-17); Calcium 10.8 mg/dL (8.4-10.2); Carbon Dioxide 30 mmol/L (22-32); Chloride 102 mmol/L (98-107); Estimated Glomerular Filt Rate > 60.0 mL/min (>60); Glucose 107 mg/dL (80-110); HEMOLYSIS < 15 (0-50); Potassium 5.2 mmol/L (3.4-5.1); Sodium 139 mmol/L (137-145)
[2018-10-18 08:33] LABS: Creatinine Urine Random 85.5 mg/dL
[2018-10-18 08:38] LABS: Microalbumin Urine Random < 0.6 mg/dL (0-1.6)
== END ==
PROVIDERS: PCP Family Medicine; Visit Provider Family Medicine
DX: E11.9 Type 2 diabetes mellitus without complications (principal)
CPT/HCPCS: 36415; 80048; 82043; 82570; 83036

== ENCOUNTER → 2019-01-16 09:44 | Outpatient (CLI) | payer MEDICARE, SELFPAY ==
[2018-06-11 08:24] VITALS: BMI 39.4
[2019-01-16 12:21] LABS: Hemoglobin A1C% w Est Avg Glu 6.8 % (4.0-6.0)
[2019-01-16 12:50] LABS: BUN Creatinine Ratio 16.7 (6-22); Blood Urea Nitrogen 15 mg/dL (7-17); Calcium 10.5 mg/dL (8.4-10.2); Carbon Dioxide 28 mmol/L (22-32); Chloride 101 mmol/L (98-107); Estimated Glomerular Filt Rate > 60.0 mL/min (>60); Glucose 81 mg/dL (80-110); HEMOLYSIS < 15 (0-50); Potassium 4.7 mmol/L (3.4-5.1); Sodium 138 mmol/L (137-145)
== END ==
PROVIDERS: PCP Family Medicine; Visit Provider Family Medicine
DX: E11.9 Type 2 diabetes mellitus without complications (principal)
CPT/HCPCS: 36415; 80048; 83036

== ENCOUNTER 2019-03-28 14:35 | Inpatient (IN) | payer MEDICARE, SELFPAY ==
[2018-06-11 08:24] VITALS: BMI 39.4
[2019-03-28] VITALS (9 sets, daily range): BP systolic 132–170; BP diastolic 54–84; PULSE 84–97; RESP 17–20; TEMP 36.8–38.2; O2SAT 88–93; BMI 37.0
--- NOTE | 2019-03-28 14:47 | DI.RAD.S_ITS ---
PROCEDURE: XR CHEST 2V INDICATIONS: Cough TECHNIQUE: 2 views of the chest were acquired. COMPARISON: [facility], MR, MR HEAD/BRAIN WO CON, 06/11/2018, 9:57. [facility], CR, XR CHEST 1V, 06/11/2018, 5:12. FINDINGS: Surgical changes and devices: None. Lungs and pleura: Lungs are clear. No pleural effusions or pneumothorax. Mediastinum: Mediastinal contours are normal. Heart size is normal. Bones and chest wall: No suspicious bony abnormalities. Soft tissues appear unremarkable. IMPRESSION: No acute cardiopulmonary disease. Dictated by: Pankaj Flower M.D. on 03/28/2019 at 15:10 Approved by: Pankaj Flower M.D. on 03/28/2019 at 15:11
--- NOTE | 2019-03-28 19:04 | ED_ITS ---
HPI - URI/Sore Throat <PREET Deleon - Last Filed: 03/28/19 23:04> General Chief Complaint: Upper Respiratory Symptoms Stated Complaint: COUGH,SOILING SELF,WEAKNESS Time Seen by Provider: 03/28/19 16:03 Source: patient Mode of arrival: Wheelchair Limitations: no limitations History of Present Illness HPI Narrative: This is a 83-year-old female, nonsmoker, who presents to ED with daughter with chief complain of moist cough for 5 days with color change her face with dusky pinedo and confusion this morning. Daughter reports patient usually plays computer games daily and she was not sure how to get to the game this this morning. Patient has decreased appetite. Denies fever, diarrhea, chills. Patient was seen by Dr. Chung but was told patient that there are limited therapeutic treatment for the patient due to due to patient's history of diabetes. Patient has history of CVA, diabetes, hypothyroidism. Related Data Home Medications Medication Instructions Recorded Confirmed Resmed Airsense 10 CPAP #1 ea 11/15/18 03/28/19 donepezil 5 mg PO BEDTIME 03/28/19 03/28/19 glyburide 5 mg PO BID 03/28/19 03/28/19 insulin glargine [Basaglar KwikPen 40 unit SUBCUT DAILY 03/28/19 03/28/19 U-100 Insulin] Previous Rx's Medication Instructions Recorded insulin syringe,safetyneedle 0.5 #500 each 04/13/18 mL 29 gauge x 1/2 blood sugar diagnostic #100 each 08/01/18 estradiol 1 mg tablet 1 mg PO QAM #90 tab 02/28/19 furosemide 20 mg tablet 20 mg PO QAM #90 tab 02/28/19 levothyroxine 50 mcg tablet 50 mcg PO DAILY #90 tab 02/28/19 losartan 100 mg tablet 100 mg PO QPM #90 tab 02/28/19 lovastatin 20 mg tablet 20 mg PO QPM #90 tab 02/28/19 metformin 1,000 mg tablet 1,000 mg PO BIDCC #180 tab 02/28/19 miscellaneous medical supply #1 each 03/02/19 Allergies Allergy/AdvReac Type Severity Reaction Status Date / Time penicillin G [PENICILLIN G] Allergy Mild Verified 03/28/19 14:46 Review of Systems <PREET Deleon - Last Filed: 03/28/19 23:04> Review of Systems Narrative: General: Reports decreased energy and feeling weak. Denies fever, chills, sweats. HEENT: Denies sinus pain, ear pain, sore throat, difficulty swallowing, dizziness. Respiratory: Reports moist cough, wheezing, exertional dyspnea for 5 days. Denies hemoptysis, sputum. Cardiovascular: Denies chest pain, palpitations, orthopnea, edema. Gastrointestinal: Denies nausea, vomiting, abdominal pain, diarrhea, constipation, melena. : Reports increased urinary incontinence. Denies dysuria, frequency, colleen turia, urinary retention. Musculoskeletal: Denies weakness, joint pain or bony pain. Skin: Denies rash, skin lesions, or other. Neurologic: Denies weakness, headache, numbness, change in speech, confusion, seizures, incoordination. Psychiatric: No concerning psychosocial issues. 12-point review of systems is negative except for those stated above. Patient History <PREET eDleon - Last Filed: 03/28/19 23:04> Medical History Cataract (Chronic ~2014) CVA, old, alterations of sensations (Chronic) Diabetes mellitus (Chronic ~1996) Eczema (Chronic ~2013) Excessive daytime sleepiness (Chronic) Foot pain (Chronic ~1962) Fractures (Resolved ~1962) Hepatitis C (Chronic ~1948) Nocturnal hypoxemia (Chronic) Obstructive sleep apnea of adult (Chronic ~08/2018) Snoring (Chronic) Surgical History Anesthesia (Resolved) Personal history of spine surgery (Resolved ~2003) Personal history of spine surgery (Resolved ~2005) Family History Brother No problems noted. Father No problems noted. Mother No problems noted. Social History household members: family Smoking Status: Never smoker alcohol intake: never Smoking Status: Never smoker alcohol intake frequency: 0-2 drinks per day Substance Use Type: does not use Exam <PREET Deleon - Last Filed: 03/28/19 23:04> Narrative Exam Narrative: GEN: Alert, oriented x 3, well appearing and nourished, and in no acute distress. Head: Normal cephalic, atraumatic. No scalp or temporal tenderness, palpable mass or rash. EYES: Pupils are equal, round, and reactive to light and accommodation. Extraocular muscles are intact bilaterally. There is no subconjunctival hemorrhage, exudate and sclera non-icteric. ENT: Bilateral auditory canals and tympanic membranes clear. Hearing grossly intact. Nose without bleeding, purulent discharge or deviation. Facial sinuses nontender to palpate. Mucous membrane moist, no mucosal lesion. Throat without erythema, tonsillar hypertrophy or exudate. Uvula in midline, airway patent. Neck: Trachea in midline. No JVD, non-tender without lymphadenopathy. No masses or thyroid megaly. Supple, non-tender and no meningeal signs. CARDIAC: Normal regular rate and rhythm without murmurs, gallops, or rubs. No chest wall tenderness. No peripheral edema, cyanosis or pallor. Capillary refill is less than 2 seconds. RESPIRATORY: Intermittent moist cough witnessed. Lung sounds with wheezes and rhonchi. No stridor, respiratory distress, increase work of breathing, or accessary muscle used. ABD: Abdomen soft, nontender and non-distended. No guarding or rebound tenderness to palpate. Bowel sounds are normal in all 4 quadrants. There is no palpable masses or organomegaly. EXT: Full painless ROM of all extremities with no loss of sensation, strength, effusion or edema. SKIN: Warm, dry, normal color for patient. No erythema, lesions or rash over visible areas. BACK: Nontender without deformity or crepitance. No flank tenderness. NEUROLOGICAL: Alert and oriented to place, time and person. Sensation and motor function intact bilaterally. No facial droops, dysphasia. PSYCHIATRIC: Good judgement and reason, without hallucinations, abnormal affect or abnormal behaviors during the examination. Initial Vital Signs Initial Vital Signs: Vital Signs Temperature 98.2 F 03/28/19 14:43 Pulse Rate 90 03/28/19 14:43 Respiratory Rate 18 03/28/19 14:43 Blood Pressure 158/84 H 03/28/19 14:43 Pulse Oximetry 92 03/28/19 14:43 <Aminata Kebede DO - Last Filed: 03/28/19 23:32> Initial Vital Signs Initial Vital Signs: Vital Signs Temperature 98.2 F 03/28/19 14:43 Pulse Rate 90 03/28/19 14:43 Respiratory Rate 18 03/28/19 14:43 Blood Pressure 158/84 H 03/28/19 14:43 Pulse Oximetry 92 03/28/19 14:43 Scores <Edgar CoronadosuzetteDiegoRICHARD austinP - Last Filed: 03/28/19 23:04> CURB-65 Confusion: Yes BUN >19mg/dL (>7mmol/L): No Respiratory rate greater or equal to 30: No SBP <90mmHg or DBP less or equal to 60mmHg: No Age 65 or Older: Yes CURB-65 Total: 2 Score 0-1 Outpatient care, Score 2 Inpt vs. Obs, Score 3 or over Inpt admit with ICU for score of 4-5 GCS Jalil coma scale eye opening: Spontaneous Jalil coma scale verbal response: Orientated Jalil coma scale motor response: Obey commands Jalil coma scale total score: 15 Course <Edgar CoronadoPREET Jiménez - Last Filed: 03/28/19 23:04> Orders Ordered: ED Orders 03/28/19 14:47 Chest [XR chest 2V] Stat 03/28/19 18:00 EKG-12 Lead Stat 03/28/19 19:00 B Type Natriuretic Peptide Stat Complete Blood Count AUTO DIFF Stat Comprehensive Metabolic Panel Stat Lactate (Lactic Acid) Stat Partial Thromboplastin Time Stat Procalcitonin Stat Prothrombin Time INR Stat Respiratory Panel (Film Array) Stat Troponin & CK Cardiac Panel Stat 03/28/19 19:20 Blood Culture Stat 03/28/19 19:25 Urinalysis and Microscopic Stat Urine Culture Stat Donepezil HCl (Aricept) 5 mg PO BEDTIME JUSTIN Enoxaparin Sodium (Lovenox) 40 mg SUBCUT DAILY [facility] Estradiol (Estrace) 1 mg PO DAILY [facility] Furosemide (Lasix) 20 mg PO DAILY JUSTIN Glyburide (Glyburide) 5 mg PO BID [facility] Sodium Chloride (Normal Saline 0.9%) 1,000 mls @ 150 mls/hr IV CONT JUSTIN Last Admin: 03/28/19 19:13 Dose: 150 mls/hr Documented by: MARLINE Ceftriaxone Sodium/Dextrose (Rocephin) 1 gm in 50 mls @ 100 mls/hr IV Q12H [facility] Insulin Glargine (Lantus Solostar (Pen)) 40 unit SUBCUT DAILY [facility] Levothyroxine Sodium (Synthroid) 50 mcg PO DAILY [facility] Losartan Potassium (Cozaar) 100 mg PO QPM JUSTIN Lovastatin (Mevacor) 20 mg PO QPM JUSTIN Metformin HCl (Glucophage) 1,000 mg PO BIDAC [facility] Naloxone HCl (Narcan) 0.2 mg IV Q2MIN PRN PRN Reason: Opiate Reversal Discontinued Medications Acetaminophen (Tylenol) 650 mg PO NOW ONE Stop: 03/28/19 18:59 Last Admin: 03/28/19 19:12 Dose: 650 mg Documented by: MARLINE Albuterol (Ventolin) 5 mg INH NOW ONE Stop: 03/28/19 20:42 Last Admin: 03/28/19 21:00 Dose: 5 mg Documented by: MARLINE Ceftriaxone Sodium/Dextrose (Rocephin) 1 gm in 50 mls @ 100 mls/hr IV NOW ONE Stop: 03/28/19 21:10 Last Infusion: 03/28/19 21:28 Dose: 0 mls/hr Documented by: Admin: 03/28/19 21:00 Dose: 100 mls/hr Documented by: MARLINE Vital Signs Vital signs: Vital Signs - 8 hr 03/28/19 18:30 03/28/19 19:00 03/28/19 19:12 Temperature 100.8 F H 100.8 F H Pulse Rate 85 88 Respiratory Rate 20 Blood Pressure [Left Arm] 163/65 H 170/66 H Pulse Oximetry 93 92 03/28/19 20:05 03/28/19 21:00 Temperature Pulse Rate 84 97 H Respiratory Rate 18 17 Blood Pressure [Left Arm] 154/54 H 154/66 H Pulse Oximetry 92 92 <Aminata Kebede, - Last Filed: 03/28/19 23:32> Orders Ordered: ED Orders 03/28/19 14:47 Chest [XR chest 2V] Stat 03/28/19 18:00 EKG-12 Lead Stat 03/28/19 19:00 B Type Natriuretic Peptide Stat Complete Blood Count AUTO DIFF Stat Comprehensive Metabolic Panel Stat Lactate (Lactic Acid) Stat Partial Thromboplastin Time Stat Procalcitonin Stat Prothrombin Time INR Stat Respiratory Panel (Film Array) Stat Troponin & CK Cardiac Panel Stat 03/28/19 19:20 Blood Culture Stat 03/28/19 19:25 Urinalysis and Microscopic Stat Urine Culture Stat Donepezil HCl (Aricept) 5 mg PO BEDTIME JUSTIN Enoxaparin Sodium (Lovenox) 40 mg SUBCUT DAILY [facility] Estradiol (Estrace) 1 mg PO DAILY JUSTIN Furosemide (Lasix) 20 mg PO DAILY JUSTIN Glyburide (Glyburide) 5 mg PO BID [facility]IN Sodium Chloride (Normal Saline 0.9%) 1,000 mls @ 150 mls/hr IV CONT JUSTIN Last Admin: 03/28/19 19:13 Dose: 150 mls/hr Documented by: MARLINE Ceftriaxone Sodium/Dextrose (Rocephin) 1 gm in 50 mls @ 100 mls/hr IV Q12H [facility] Insulin Glargine (Lantus Solostar (Pen)) 40 unit SUBCUT DAILY [facility] Levothyroxine Sodium (Synthroid) 50 mcg PO DAILY JUSTIN Losartan Potassium (Cozaar) 100 mg PO QPM JUSTIN Lovastatin (Mevacor) 20 mg PO QPM JUSTIN Metformin HCl (Glucophage) 1,000 mg PO BIDAC JUSTIN Naloxone HCl (Narcan) 0.2 mg IV Q2MIN PRN PRN Reason: Opiate Reversal Discontinued Medications Acetaminophen (Tylenol) 650 mg PO NOW ONE Stop: 03/28/19 18:59 Last Admin: 03/28/19 19:12 Dose: 650 mg Documented by: MARLINE Albuterol (Ventolin) 5 mg INH NOW ONE Stop: 03/28/19 20:42 Last Admin: 03/28/19 21:00 Dose: 5 mg Documented by: MARLINE Ceftriaxone Sodium/Dextrose (Rocephin) 1 gm in 50 mls @ 100 mls/hr IV NOW ONE Stop: 03/28/19 21:10 Last Infusion: 03/28/19 21:28 Dose: 0 mls/hr Documented by: Admin: 03/28/19 21:00 Dose: 100 mls/hr Documented by: MARLINE Vital Signs Vital signs: Vital Signs - 8 hr 03/28/19 18:30 03/28/19 19:00 03/28/19 19:12 Temperature 100.8 F H 100.8 F H Pulse Rate 85 88 Respiratory Rate 20 Blood Pressure [Left Arm] 163/65 H 170/66 H Pulse Oximetry 93 92 03/28/19 20:05 03/28/19 21:00 Temperature Pulse Rate 84 97 H Respiratory Rate 18 17 Blood Pressure [Left Arm] 154/54 H 154/66 H Pulse Oximetry 92 92 MDM - URI/Sore Throat <RICHARD DeleonP - Last Filed: 03/28/19 23:04> Differential Diagnosis Differential diagnosis: Likely upper respiratory infection, bronchitis, influenza and other (Pneumonia, UTI, TIA) Medical Records Attestation: I reviewed the patient's medical records. Lab Data Attestation: I reviewed the patient's lab results. Result diagrams: 03/28/19 19:00 03/28/19 19:00 Labs: Lab Results 03/28/19 03/28/19 03/28/19 Range/Units 19:00 19:00 19:00 WBC 11.7 H (4.5-11.0) X10^3/uL RBC 4.40 (4.0-5.2) X10^6/uL Hgb 12.7 (12.0-16.0) g/dL Hct 39.1 (36-46) % MCV 89.0 (80-100) fL MCH 28.9 (26-34) PG MCHC 32.5 (30-36) % RDW 14.5 (11.6-14.8) % Plt Count 314 (150-400) X10^3/uL Neut % (Auto) 79.2 H (50-75) % Lymph % (Auto) 10.7 L (25-40) % [place] % (Auto) 9.0 (3-14) % Eos % (Auto) 0.5 L (2-4) % Baso % (Auto) 0.6 (0-2) % Neut # (Auto) 9300 H (5306-1230) /uL Lymph # (Auto) 1300 (7968-8138) /uL [place] # (Auto) 1100 H (0-900) /uL Eos # (Auto) 100 (0-450) /uL Baso # (Auto) 100 (0-100) /uL PT (10.1-12.7) SECONDS INR (0.9-1.3) APTT (26.4-36.2) SECONDS Sodium 136 L (137-145) mmol/L Potassium 4.4 (3.4-5.1) mmol/L Chloride 98 (98-107) mmol/L Carbon Dioxide 26 (22-32) mmol/L BUN 18 H (7-17) mg/dL Creatinine 0.80 (0.52-1.04) mg/dL Estimated GFR > 60.0 (>60) mL/min BUN/Creatinine Ratio 22.5 H (6-22) Glucose 219 H (80-110) mg/dL Lactate (0.7-2.1) mmol/L Calcium 10.8 H (8.4-10.2) mg/dL Total Bilirubin 0.5 (0.2-1.3) mg/dL AST 17 (14-36) IU/L ALT 13 (<35) IU/L Alkaline Phosphatase 88 (38-126) U/L Total Creatine Kinase (30-135) U/L CK-MB (CK-2) CK-MB (CK-2) Rel Index Troponin I (0.01-0.034) ng/mL B-Natriuretic Peptide < 100 (<100) Total Protein 6.3 (6.3-8.2) g/dL Albumin 3.6 (3.5-5.0) g/dL Globulin 2.7 (1.7-4.1) g/dL Albumin/Globulin Ratio 1.3 (1.0-2.8) Procalcitonin 0.11 (<0.5) ng/mL Urine Color Urine Appearance Urine pH (4.5-8.0) Ur Specific Ruby (1.000-1.035) Urine Protein (Negative) Urine Glucose (UA) (Negative) g/dL Urine Ketones (NEGATIVE) Urine Occult Blood (Negative) Urine Nitrate (Negative) Urine Bilirubin (NEGATIVE) Urine Urobilinogen (0.2) E.U./dL Ur Leukocyte Esterase (NEGATIVE) Urine RBC (0-5/HPF) Urine WBC (0-5/HPF) Ur Squamous Epith Cells (0-5/HPF) Urine Bacteria (None) Ur Culture Indicated? Chlamy pneumoniae PCR (Not Detect) Adenovirus (PCR) (Not Detect) B.parapertussis DNA PCR (Not Detect) Coronavirus OC43 (PCR) (Not Detect) Coronavirus HKU1 (PCR) (Not Detect) Coronavirus 229E (PCR) (Not Detect) Coronavirus NL63 (PCR) (Not Detect) Human Metapneumovir PCR (Not Detect) Influenza Type A (PCR) (Not Detect) Influenza Type B (PCR) (Not Detect) M. pneumoniae (PCR) (Not Detect) Parainfluenza 1 (PCR) (Not Detect) Parainfluenza 2 (PCR) (Not Detect) Parainfluenza 3 (PCR) (Not Detect) Parainfluenza 4 (PCR) (Not Detect) RSV (PCR) (Not Detect) Entero/Rhino (PCR) (Not Detect) 03/28/19 03/28/19 03/28/19 Range/Units 19:00 19:00 19:00 WBC (4.5-11.0) X10^3/uL RBC (4.0-5.2) X10^6/uL Hgb (12.0-16.0) g/dL Hct (36-46) % MCV (80-100) fL MCH (26-34) PG MCHC (30-36) % RDW (11.6-14.8) % Plt Count (150-400) X10^3/uL Neut % (Auto) (50-75) % Lymph % (Auto) (25-40) % [place] % (Auto) (3-14) % Eos % (Auto) (2-4) % Baso % (Auto) (0-2) % Neut # (Auto) (4569-9361) /uL Lymph # (Auto) (4256-8570) /uL [place] # (Auto) (0-900) /uL Eos # (Auto) (0-450) /uL Baso # (Auto) (0-100) /uL PT 12.2 (10.1-12.7) SECONDS INR 1.1 (0.9-1.3) APTT 29 (26.4-36.2) SECONDS Sodium (137-145) mmol/L Potassium (3.4-5.1) mmol/L Chloride (98-107) mmol/L Carbon Dioxide (22-32) mmol/L BUN (7-17) mg/dL Creatinine (0.52-1.04) mg/dL Estimated GFR (>60) mL/min BUN/Creatinine Ratio (6-22) Glucose (80-110) mg/dL Lactate (0.7-2.1) mmol/L Calcium (8.4-10.2) mg/dL Total Bilirubin (0.2-1.3) mg/dL AST (14-36) IU/L ALT (<35) IU/L Alkaline Phosphatase (38-126) U/L Total Creatine Kinase 52 (30-135) U/L CK-MB (CK-2) TNP CK-MB (CK-2) Rel Index TNP Troponin I < 0.012 (0.01-0.034) ng/mL B-Natriuretic Peptide (<100) Total Protein (6.3-8.2) g/dL Albumin (3.5-5.0) g/dL Globulin (1.7-4.1) g/dL Albumin/Globulin Ratio (1.0-2.8) Procalcitonin (<0.5) ng/mL Urine Color Urine Appearance Urine pH (4.5-8.0) Ur Specific Ruby (1.000-1.035) Urine Protein (Negative) Urine Glucose (UA) (Negative) g/dL Urine Ketones (NEGATIVE) Urine Occult Blood (Negative) Urine Nitrate (Negative) Urine Bilirubin (NEGATIVE) Urine Urobilinogen (0.2) E.U./dL Ur Leukocyte Esterase (NEGATIVE) Urine RBC (0-5/HPF) Urine WBC (0-5/HPF) Ur Squamous Epith Cells (0-5/HPF) Urine Bacteria (None) Ur Culture Indicated? Chlamy pneumoniae PCR Not detected (Not Detect) Adenovirus (PCR) Not detected (Not Detect) B.parapertussis DNA PCR Not detected (Not Detect) Coronavirus OC43 (PCR) Not detected (Not Detect) Coronavirus HKU1 (PCR) Not detected (Not Detect) Coronavirus 229E (PCR) Not detected (Not Detect) Coronavirus NL63 (PCR) Not detected (Not Detect) Human Metapneumovir PCR Not detected (Not Detect) Influenza Type A (PCR) Not detected (Not Detect) Influenza Type B (PCR) Not detected (Not Detect) M. pneumoniae (PCR) Not detected (Not Detect) Parainfluenza 1 (PCR) Not detected (Not Detect) Parainfluenza 2 (PCR) Not detected (Not Detect) Parainfluenza 3 (PCR) Not detected (Not Detect) Parainfluenza 4 (PCR) Not detected (Not Detect) RSV (PCR) Not detected (Not Detect) Entero/Rhino (PCR) Not detected (Not Detect) 03/28/19 03/28/19 Range/Units 19:00 19:25 WBC (4.5-11.0) X10^3/uL RBC (4.0-5.2) X10^6/uL Hgb (12.0-16.0) g/dL Hct (36-46) % MCV (80-100) fL MCH (26-34) PG MCHC (30-36) % RDW (11.6-14.8) % Plt Count (150-400) X10^3/uL Neut % (Auto) (50-75) % Lymph % (Auto) (25-40) % [place] % (Auto) (3-14) % Eos % (Auto) (2-4) % Baso % (Auto) (0-2) % Neut # (Auto) (0698-4625) /uL Lymph # (Auto) (0737-7596) /uL [place] # (Auto) (0-900) /uL Eos # (Auto) (0-450) /uL Baso # (Auto) (0-100) /uL PT (10.1-12.7) SECONDS INR (0.9-1.3) APTT (26.4-36.2) SECONDS Sodium (137-145) mmol/L Potassium (3.4-5.1) mmol/L Chloride (98-107) mmol/L Carbon Dioxide (22-32) mmol/L BUN (7-17) mg/dL Creatinine (0.52-1.04) mg/dL Estimated GFR (>60) mL/min BUN/Creatinine Ratio (6-22) Glucose (80-110) mg/dL Lactate 1.4 (0.7-2.1) mmol/L Calcium (8.4-10.2) mg/dL Total Bilirubin (0.2-1.3) mg/dL AST (14-36) IU/L ALT (<35) IU/L Alkaline Phosphatase (38-126) U/L Total Creatine Kinase (30-135) U/L CK-MB (CK-2) CK-MB (CK-2) Rel Index Troponin I (0.01-0.034) ng/mL B-Natriuretic Peptide (<100) Total Protein (6.3-8.2) g/dL Albumin (3.5-5.0) g/dL Globulin (1.7-4.1) g/dL Albumin/Globulin Ratio (1.0-2.8) Procalcitonin (<0.5) ng/mL Urine Color Yellow Urine Appearance Cloudy Urine pH 5.5 (4.5-8.0) Ur Specific Ruby 1.025 (1.000-1.035) Urine Protein 1+ H (Negative) Urine Glucose (UA) Negative (Negative) g/dL Urine Ketones 1+ H (NEGATIVE) Urine Occult Blood Negative (Negative) Urine Nitrate Negative (Negative) Urine Bilirubin Negative (NEGATIVE) Urine Urobilinogen 0.2 (0.2) E.U./dL Ur Leukocyte Esterase Negative (NEGATIVE) Urine RBC None seen (0-5/HPF) Urine WBC 1-5/hpf (0-5/HPF) Ur Squamous Epith Cells 0-1 /hpf (0-5/HPF) Urine Bacteria Many (>30) H (None) Ur Culture Indicated? Specimen cultured Chlamy pneumoniae PCR (Not Detect) Adenovirus (PCR) (Not Detect) B.parapertussis DNA PCR (Not Detect) Coronavirus OC43 (PCR) (Not Detect) Coronavirus HKU1 (PCR) (Not Detect) Coronavirus 229E (PCR) (Not Detect) Coronavirus NL63 (PCR) (Not Detect) Human Metapneumovir PCR (Not Detect) Influenza Type A (PCR) (Not Detect) Influenza Type B (PCR) (Not Detect) M. pneumoniae (PCR) (Not Detect) Parainfluenza 1 (PCR) (Not Detect) Parainfluenza 2 (PCR) (Not Detect) Parainfluenza 3 (PCR) (Not Detect) Parainfluenza 4 (PCR) (Not Detect) RSV (PCR) (Not Detect) Entero/Rhino (PCR) (Not Detect) Imaging Data Chest x-ray: Radiologist's Impression: [address] [address] XRay Report Signed Patient: Isabella Lucero [facility]#: [id number] : 1935cct:[id number] Age/Sex: 83 / FDate of Service: 03/28/19 Loc: ED Accession Number: [id number] Procedure: XR chest 2V Ordering Provider: Harriet Carcamo MD PROCEDURE: XR CHEST 2V INDICATIONS: Cough TECHNIQUE: 2 views of the chest were acquired. COMPARISON: [facility], MR, MR HEAD/BRAIN WO CON, 06/11/2018, 9:57. [facility], CR, XR CHEST 1V, 06/11/2018, 5:12. FINDINGS: Surgical changes and devices: None. Lungs and pleura: Lungs are clear. No pleural effusions or pneumothorax. Mediastinum: Mediastinal contours are normal. Heart size is normal. Bones and chest wall: No suspicious bony abnormalities. Soft tissues appear unremarkable. IMPRESSION: No acute cardiopulmonary disease. Dictated by: Pankaj Flower M.D. on 03/28/2019 at 15:10 Approved by: Pankaj Flower M.D. on 03/28/2019 at 15:11 ECG Data Attestation: I personally reviewed and interpreted this ECG as follows: Prior ECG tracings: available for review Interpretation: Sinus rhythm rate at 85. Low QRS voltage in precordial leads. Incomplete RBBB Q wave in V3/V4 Previous EKG similar with 1st degree AVB MDM Narrative Medical decision making narrative: This is a 83-year-old female who presents to ED with her daughter with moist cough for last 5 days with increased urinary incontinence and feeling fatigued and 1 episode of confusion witnessed by her daughter. Patient is alert and oriented x3 and negative FAST exam. Patient denies fever, nausea or vomiting. Lung sounds are coarse and wheezy throughout all lobes. The room air o2 sat at rest was from 89-92%. EKG was sinus rhythm rate at 85 with similar to previous EKG except resolved first-degree AV block. Patient had developed fever to 100.8 while in ED. chest x-ray was obtained after the triage and did not show acute findings. Mildly increased WBC with neutrophils and normal lactate and procalcitonin. Negative cardiac enzymes and BNP. Respiratory panel was negative. Leuks and nitrites were negative but many urine bacteria showed with cloudy appearance and it is pending for culture. Blood cultures were obtained and patient was medicated with 1 g of Rocephin IV to treat UTI and presumptively for bacterial bronchitis. The findings were discussed with Dr. Chung and he kindly accepted patient's care for an admission. <Aminata Kebede, DO - Last Filed: 03/28/19 23:32> Lab Data Labs: Lab Results 03/28/19 03/28/19 03/28/19 Range/Units 19:00 19:00 19:00 WBC 11.7 H (4.5-11.0) X10^3/uL RBC 4.40 (4.0-5.2) X10^6/uL Hgb 12.7 (12.0-16.0) g/dL Hct 39.1 (36-46) % MCV 89.0 (80-100) fL MCH 28.9 (26-34) PG MCHC 32.5 (30-36) % RDW 14.5 (11.6-14.8) % Plt Count 314 (150-400) X10^3/uL Neut % (Auto) 79.2 H (50-75) % Lymph % (Auto) 10.7 L (25-40) % [place] % (Auto) 9.0 (3-14) % Eos % (Auto) 0.5 L (2-4) % Baso % (Auto) 0.6 (0-2) % Neut # (Auto) 9300 H (2415-9089) /uL Lymph # (Auto) 1300 (7832-6128) /uL [place] # (Auto) 1100 H (0-900) /uL Eos # (Auto) 100 (0-450) /uL Baso # (Auto) 100 (0-100) /uL PT (10.1-12.7) SECONDS INR (0.9-1.3) APTT (26.4-36.2) SECONDS Sodium 136 L (137-145) mmol/L Potassium 4.4 (3.4-5.1) mmol/L Chloride 98 (98-107) mmol/L Carbon Dioxide 26 (22-32) mmol/L BUN 18 H (7-17) mg/dL Creatinine 0.80 (0.52-1.04) mg/dL Estimated GFR > 60.0 (>60) mL/min BUN/Creatinine Ratio 22.5 H (6-22) Glucose 219 H (80-110) mg/dL Lactate (0.7-2.1) mmol/L Calcium 10.8 H (8.4-10.2) mg/dL Total Bilirubin 0.5 (0.2-1.3) mg/dL AST 17 (14-36) IU/L ALT 13 (<35) IU/L Alkaline Phosphatase 88 (38-126) U/L Total Creatine Kinase (30-135) U/L CK-MB (CK-2) CK-MB (CK-2) Rel Index Troponin I (0.01-0.034) ng/mL B-Natriuretic Peptide < 100 (<100) Total Protein 6.3 (6.3-8.2) g/dL Albumin 3.6 (3.5-5.0) g/dL Globulin 2.7 (1.7-4.1) g/dL Albumin/Globulin Ratio 1.3 (1.0-2.8) Procalcitonin 0.11 (<0.5) ng/mL Urine Color Urine Appearance Urine pH (4.5-8.0) Ur Specific Ruby (1.000-1.035) Urine Protein (Negative) Urine Glucose (UA) (Negative) g/dL Urine Ketones (NEGATIVE) Urine Occult Blood (Negative) Urine Nitrate (Negative) Urine Bilirubin (NEGATIVE) Urine Urobilinogen (0.2) E.U./dL Ur Leukocyte Esterase (NEGATIVE) Urine RBC (0-5/HPF) Urine WBC (0-5/HPF) Ur Squamous Epith Cells (0-5/HPF) Urine Bacteria (None) Ur Culture Indicated? Chlamy pneumoniae PCR (Not Detect) Adenovirus (PCR) (Not Detect) B.parapertussis DNA PCR (Not Detect) Coronavirus OC43 (PCR) (Not Detect) Coronavirus HKU1 (PCR) (Not Detect) Coronavirus 229E (PCR) (Not Detect) Coronavirus NL63 (PCR) (Not Detect) Human Metapneumovir PCR (Not Detect) Influenza Type A (PCR) (Not Detect) Influenza Type B (PCR) (Not Detect) M. pneumoniae (PCR) (Not Detect) Parainfluenza 1 (PCR) (Not Detect) Parainfluenza 2 (PCR) (Not Detect) Parainfluenza 3 (PCR) (Not Detect) Parainfluenza 4 (PCR) (Not Detect) RSV (PCR) (Not Detect) Entero/Rhino (PCR) (Not Detect) 03/28/19 03/28/19 03/28/19 Range/Units 19:00 19:00 19:00 WBC (4.5-11.0) X10^3/uL RBC (4.0-5.2) X10^6/uL Hgb (12.0-16.0) g/dL Hct (36-46) % MCV (80-100) fL MCH (26-34) PG MCHC (30-36) % RDW (11.6-14.8) % Plt Count (150-400) X10^3/uL Neut % (Auto) (50-75) % Lymph % (Auto) (25-40) % [place] % (Auto) (3-14) % Eos % (Auto) (2-4) % Baso % (Auto) (0-2) % Neut # (Auto) (5715-1177) /uL Lymph # (Auto) (1632-1758) /uL [place] # (Auto) (0-900) /uL Eos # (Auto) (0-450) /uL Baso # (Auto) (0-100) /uL PT 12.2 (10.1-12.7) SECONDS INR 1.1 (0.9-1.3) APTT 29 (26.4-36.2) SECONDS Sodium (137-145) mmol/L Potassium (3.4-5.1) mmol/L Chloride (98-107) mmol/L Carbon Dioxide (22-32) mmol/L BUN (7-17) mg/dL Creatinine (0.52-1.04) mg/dL Estimated GFR (>60) mL/min BUN/Creatinine Ratio (6-22) Glucose (80-110) mg/dL Lactate (0.7-2.1) mmol/L Calcium (8.4-10.2) mg/dL Total Bilirubin (0.2-1.3) mg/dL AST (14-36) IU/L ALT (<35) IU/L Alkaline Phosphatase (38-126) U/L Total Creatine Kinase 52 (30-135) U/L CK-MB (CK-2) TNP CK-MB (CK-2) Rel Index TNP Troponin I < 0.012 (0.01-0.034) ng/mL B-Natriuretic Peptide (<100) Total Protein (6.3-8.2) g/dL Albumin (3.5-5.0) g/dL Globulin (1.7-4.1) g/dL Albumin/Globulin Ratio (1.0-2.8) Procalcitonin (<0.5) ng/mL Urine Color Urine Appearance Urine pH (4.5-8.0) Ur Specific Ruby (1.000-1.035) Urine Protein (Negative) Urine Glucose (UA) (Negative) g/dL Urine Ketones (NEGATIVE) Urine Occult Blood (Negative) Urine Nitrate (Negative) Urine Bilirubin (NEGATIVE) Urine Urobilinogen (0.2) E.U./dL Ur Leukocyte Esterase (NEGATIVE) Urine RBC (0-5/HPF) Urine WBC (0-5/HPF) Ur Squamous Epith Cells (0-5/HPF) Urine Bacteria (None) Ur Culture Indicated? Chlamy pneumoniae PCR Not detected (Not Detect) Adenovirus (PCR) Not detected (Not Detect) B.parapertussis DNA PCR Not detected (Not Detect) Coronavirus OC43 (PCR) Not detected (Not Detect) Coronavirus HKU1 (PCR) Not detected (Not Detect) Coronavirus 229E (PCR) Not detected (Not Detect) Coronavirus NL63 (PCR) Not detected (Not Detect) Human Metapneumovir PCR Not detected (Not Detect) Influenza Type A (PCR) Not detected (Not Detect) Influenza Type B (PCR) Not detected (Not Detect) M. pneumoniae (PCR) Not detected (Not Detect) Parainfluenza 1 (PCR) Not detected (Not Detect) Parainfluenza 2 (PCR) Not detected (Not Detect) Parainfluenza 3 (PCR) Not detected (Not Detect) Parainfluenza 4 (PCR) Not detected (Not Detect) RSV (PCR) Not detected (Not Detect) Entero/Rhino (PCR) Not detected (Not Detect) 03/28/19 03/28/19 Range/Units 19:00 19:25 WBC (4.5-11.0) X10^3/uL RBC (4.0-5.2) X10^6/uL Hgb (12.0-16.0) g/dL Hct (36-46) % MCV (80-100) fL MCH (26-34) PG MCHC (30-36) % RDW (11.6-14.8) % Plt Count (150-400) X10^3/uL Neut % (Auto) (50-75) % Lymph % (Auto) (25-40) % [place] % (Auto) (3-14) % Eos % (Auto) (2-4) % Baso % (Auto) (0-2) % Neut # (Auto) (3422-5545) /uL Lymph # (Auto) (5261-5747) /uL [place] # (Auto) (0-900) /uL Eos # (Auto) (0-450) /uL Baso # (Auto) (0-100) /uL PT (10.1-12.7) SECONDS INR (0.9-1.3) APTT (26.4-36.2) SECONDS Sodium (137-145) mmol/L Potassium (3.4-5.1) mmol/L Chloride (98-107) mmol/L Carbon Dioxide (22-32) mmol/L BUN (7-17) mg/dL Creatinine (0.52-1.04) mg/dL Estimated GFR (>60) mL/min BUN/Creatinine Ratio (6-22) Glucose (80-110) mg/dL Lactate 1.4 (0.7-2.1) mmol/L Calcium (8.4-10.2) mg/dL Total Bilirubin (0.2-1.3) mg/dL AST (14-36) IU/L ALT (<35) IU/L Alkaline Phosphatase (38-126) U/L Total Creatine Kinase (30-135) U/L CK-MB (CK-2) CK-MB (CK-2) Rel Index Troponin I (0.01-0.034) ng/mL B-Natriuretic Peptide (<100) Total Protein (6.3-8.2) g/dL Albumin (3.5-5.0) g/dL Globulin (1.7-4.1) g/dL Albumin/Globulin Ratio (1.0-2.8) Procalcitonin (<0.5) ng/mL Urine Color Yellow Urine Appearance Cloudy Urine pH 5.5 (4.5-8.0) Ur Specific Ruby 1.025 (1.000-1.035) Urine Protein 1+ H (Negative) Urine Glucose (UA) Negative (Negative) g/dL Urine Ketones 1+ H (NEGATIVE) Urine Occult Blood Negative (Negative) Urine Nitrate Negative (Negative) Urine Bilirubin Negative (NEGATIVE) Urine Urobilinogen 0.2 (0.2) E.U./dL Ur Leukocyte Esterase Negative (NEGATIVE) Urine RBC None seen (0-5/HPF) Urine WBC 1-5/hpf (0-5/HPF) Ur Squamous Epith Cells 0-1 /hpf (0-5/HPF) Urine Bacteria Many (>30) H (None) Ur Culture Indicated? Specimen cultured Chlamy pneumoniae PCR (Not Detect) Adenovirus (PCR) (Not Detect) B.parapertussis DNA PCR (Not Detect) Coronavirus OC43 (PCR) (Not Detect) Coronavirus HKU1 (PCR) (Not Detect) Coronavirus 229E (PCR) (Not Detect) Coronavirus NL63 (PCR) (Not Detect) Human Metapneumovir PCR (Not Detect) Influenza Type A (PCR) (Not Detect) Influenza Type B (PCR) (Not Detect) M. pneumoniae (PCR) (Not Detect) Parainfluenza 1 (PCR) (Not Detect) Parainfluenza 2 (PCR) (Not Detect) Parainfluenza 3 (PCR) (Not Detect) Parainfluenza 4 (PCR) (Not Detect) RSV (PCR) (Not Detect) Entero/Rhino (PCR) (Not Detect) Discharge Plan Departure Patient Disposition: Admitted As Inpatient Clinical Impression: Bronchitis, Hypoxemia UTI (urinary tract infection) Qualifiers: Urinary tract infection type: site unspecified Hematuria presence: without hematuria Qualified Code(s): N39.0 - Urinary tract infection, site not specified Referrals: Pierre Chung MD [Primary Care Provider] - Admit Date/Time: 03/28/19 21:54 Admit Provider: Pierre Chung
[2019-03-28] MEDS: ALBUTEROL/IPRATROPIUM 3 ML AMPUL INH (19:12)
[2019-03-28] MEDS: ACETAMINOPHEN 325 MG TABLET 650 MG PO (19:12)
[2019-03-28] MEDS: SODIUM CHLORIDE 0.9% 1,000 ML 150 ML IV (19:13)
[2019-03-28 19:17] LABS: Add Manual Diff / Slide Review NO; Basophils Absolute Auto 100 /uL (0-100); Basophils Percent Auto 0.6 % (0-2); Eosinophils Absolute Auto 100 /uL (0-450); Eosinophils Percent Auto 0.5 % (2-4); Hematocrit 39.1 % (36-46); Hemoglobin 12.7 g/dL (12.0-16.0); Lymphocytes Absolute Auto 1300 /uL (1100-4500); Lymphocytes Percent Auto 10.7 % (25-40); Mean Corpuscular HGB Conc 32.5 % (30-36); Mean Corpuscular Hemoglobin 28.9 PG (26-34); Monocytes Absolute Auto 1100 /uL (0-900); Neutrophils Absolute Auto 9300 /uL (1500-7000); Neutrophils Percent Auto 79.2 % (50-75); Platelet Count 314 X10^3/uL (150-400); Red Cell Distribution Width 14.5 % (11.6-14.8); White Blood Cell Count 11.7 X10^3/uL (4.5-11.0)
[2019-03-28 19:24] LABS: INR 1.1 (0.9-1.3); Prothrombin Time 12.2 SECONDS (10.1-12.7)
[2019-03-28 19:26] LABS: PTT Partial Thromboplastin Tim 29 SECONDS (26.4-36.2)
[2019-03-28 19:38] LABS: Creatine Kinase 52 U/L (30-135)
[2019-03-28 19:40] LABS: Alanine Aminotransferase 13 IU/L (<35); Albumin 3.6 g/dL (3.5-5.0); Albumin Globulin Ratio 1.3 (1.0-2.8); Alkaline Phosphatase 88 U/L (38-126); Aspartate Aminotransferase 17 IU/L (14-36); BUN Creatinine Ratio 22.5 (6-22); Bilirubin Total 0.5 mg/dL (0.2-1.3); Blood Urea Nitrogen 18 mg/dL (7-17); Calcium 10.8 mg/dL (8.4-10.2); Carbon Dioxide 26 mmol/L (22-32); Chloride 98 mmol/L (98-107); Estimated Glomerular Filt Rate > 60.0 mL/min (>60); Globulin 2.7 g/dL (1.7-4.1); Glucose 219 mg/dL (80-110); HEMOLYSIS < 15 (0-50); Lactate (Lactic Acid) 1.4 mmol/L (0.7-2.1); Potassium 4.4 mmol/L (3.4-5.1); Sodium 136 mmol/L (137-145); Total Protein 6.3 g/dL (6.3-8.2)
[2019-03-28 19:47] LABS: B Type Natriuretic Peptide < 100 (<100)
[2019-03-28 19:51] LABS: Troponin I < 0.012 ng/mL (0.01-0.034)
[2019-03-28 20:00] LABS: RBC Urine None Seen (0-5/HPF)
[2019-03-28 20:03] LABS: Appearance Urine UA CLOUDY; Bilirubin Urine UA NEGATIVE (NEGATIVE); Color Urine UA YELLOW; Glucose Urine UA NEGATIVE (Negative); Ketones Urine UA 1+ (NEGATIVE); Leukocyte Esterase Urine UA NEGATIVE (NEGATIVE); Nitrite Urine UA NEGATIVE (Negative); Occult Blood Urine UA NEGATIVE (Negative); Protein Urine UA 1+ (Negative); Specific Gravity Urine UA 1.025 (1.000-1.035); Urobilinogen Urine UA 0.2 E.U./dL (0.2)
--- NOTE | 2019-03-28 20:03 | PC.NURSE ---
1900 Upon entering room for initial assessment of patient she was found to be wheezing and appears short of breath. Her Room air O2 saturation is anywhere from 89-93%. I took her temperature as she was warm to the touch and it read 100.8F. Patient has a tight and wet sounding cough which daughter reports has been ongoing for 5 days. Daughter also reports intermittent confusion and chills. Daughter states just a second ago she didn't know where she was and I had to tell her. Patient is A&Ox3 at this time. She was incontinent to urine and stool and soaked through her depends to the bed. I cleaned her with wipes and towels and changed her depends and bedding. [facility]. No history of UTI that family is aware of however she is incontinent to stool which is loose per daughter and urine in depends and has dried stool to her perineum that I cleaned off.
[2019-03-28 20:05] LABS: pH Urine UA 5.5 (4.5-8.0)
[2019-03-28 20:07] LABS: Procalcitonin 0.11 ng/mL (<0.5)
[2019-03-28 20:16] LABS: Bacteria Urine Many (>30); Culture Indicated Urine Specimen Cultured; Squamous Epithelial Cell Urine 0-1 /HPF (0-5/HPF); WBC Urine 1-5/HPF (0-5/HPF)
[2019-03-28 20:51] LABS: Adenovirus Not Detected (Not Detect); Bordetella pertussis Not Detected (Not Detect); Chlamydophila pneumoniae Not Detected (Not Detect); Coronavirus 229E Not Detected (Not Detect); Coronavirus HKU1 Not Detected (Not Detect); Coronavirus NL 63 Not Detected (Not Detect); Coronavirus OC43 Not Detected (Not Detect); Human Metapneumovirus Not Detected (Not Detect); Human Rhinovirus/Enterovirus Not Detected (Not Detect); Influenza A Not Detected (Not Detect); Influenza B Not Detected (Not Detect); Mycoplasma pneumoniae Not Detected (Not Detect); Parainfluenza Virus 1 Not Detected (Not Detect); Parainfluenza Virus 2 Not Detected (Not Detect); Parainfluenza Virus 3 Not Detected (Not Detect); Parainfluenza Virus 4 Not Detected (Not Detect); Respiratory Syncytial Virus Not Detected (Not Detect)
[2019-03-28] MEDS: ALBUTEROL 2.5 MG/3 ML NEB (ADULT) 5 MG INH (21:00)
[2019-03-28] MEDS: CEFTRIAXONE 1 GM/50 ML FROZ.PIGGY IV (21:00)
--- NOTE | 2019-03-28 21:46 | PC.NURSE ---
Patient continues with Room Air SPO2 of 89-93%. No change after nebulizer treatments.
[2019-03-29] VITALS (11 sets, daily range): BP systolic 128–156; BP diastolic 57–75; PULSE 74–93; RESP 18–24; TEMP 35.8–37.1; O2SAT 88–97; BMI 35.5
--- NOTE | 2019-03-29 01:26 | PC.ADMIT ---
Addendum entered by Monisha Ross R.N. 03/29/19 04:54: O2 sat remaining in mid 90's so oxygen decreased to 1L/min. SENIOR LIBRARIAN reports patient set off bed alarm and was attempting to get out of bed without calling for assistance. Assisted to bathroom with 1 assist and back to bed with walker and 1 assist. Addendum entered by Monisha Ross R.N. 03/29/19 02:01: Overheard patient talking and when RN entered room sounded as though she was having a conversation with someone. When name called she opened her eyes and admitted talking to herself but could not recall conversation. Original Note: Patient admitted at 0000 to room 220 from ER per stretcher. Is alert and oriented. Reports she was brought to hospital for weakness and poor balance but ER report indicates she came in with cough and confusion. Breath sounds coarse with scattered expiratory rhonchi. Has frequent moist sounding cough which she states has been productive of thick white sputum (respiratory panel was negative). Oxygen at 3L/min per NC with sat of 96% so decreased to 2L/min and will titrate down as able. Denies feeling SOB. HRR. Denies nausea. BT present and abdomen is soft. Noted to have eczema like lesion under left breast. Plantar surface of feet are reddened but blanchable. Left groin is pink, moist with peeling skin. States she is frequently incontinent of urine and sometimes of bowel. Is able to turn self in bed. Reports at home she ambulated frequently and used either a walker or held on to furniture as she walked. Denies pain. Reports falling in past 3 months and fall risk score is high so bed alarm is activated. Calf SCD's applied as per MD order. Oriented to room, bed controls and call light. [address] Admission Note: The patient,Isabella Lucero,83 y/o, was given written information regarding hospital policies, unit procedures and contact persons. Patient's smoking status: Never smoker. Vital Signs - 8 hr 03/28/19 18:30 03/28/19 19:00 03/28/19 19:12 Temperature 100.8 F H 100.8 F H Pulse Rate 85 88 Respiratory Rate 20 Blood Pressure Blood Pressure [Left Arm] 163/65 H 170/66 H Pulse Oximetry 93 92 03/28/19 20:05 03/28/19 21:00 03/28/19 22:00 Temperature Pulse Rate 84 97 H 95 H Respiratory Rate 18 17 18 Blood Pressure Blood Pressure [Left Arm] 154/54 H 154/66 H 132/64 Pulse Oximetry 92 92 93 03/28/19 22:12 03/28/19 22:59 03/29/19 00:00 Temperature 98.6 F 98.3 F Pulse Rate 90 93 H Respiratory Rate 18 19 Blood Pressure 139/67 Blood Pressure [Left Arm] 146/61 H Pulse Oximetry 88 L 96
[2019-03-29] MEDS: CEFTRIAXONE 1 GM/50 ML FROZ.PIGGY IV ×2 (04:47→16:57)
[2019-03-29] MEDS: SODIUM CHLORIDE 0.9% FLUSH 10 ML IV ×3 (04:47→20:29)
[2019-03-29] MEDS: SODIUM CHLORIDE 0.9% 250 ML 21 ML IV ×2 (04:47→18:41)
[2019-03-29 05:54] LABS: BUN Creatinine Ratio 18.9 (6-22); Blood Urea Nitrogen 17 mg/dL (7-17); Calcium 10.3 mg/dL (8.4-10.2); Carbon Dioxide 28 mmol/L (22-32); Chloride 100 mmol/L (98-107); Estimated Glomerular Filt Rate > 60.0 mL/min (>60); Glucose 258 mg/dL (80-110); HEMOLYSIS < 15 (0-50); Hemoglobin A1C% w Est Avg Glu 6.9 % (4.0-6.0); Potassium 4.4 mmol/L (3.4-5.1); Sodium 136 mmol/L (137-145)
[2019-03-29] MEDS: FUROSEMIDE 20 MG TABLET PO (08:13)
[2019-03-29] MEDS: METFORMIN HCL 500 MG TABLET 1000 MG PO ×2 (08:13→16:38)
[2019-03-29] MEDS: ENOXAPARIN 40 MG/0.4 ML SYRINGE SUBCUT (08:13)
[2019-03-29] MEDS: LEVOTHYROXINE 50 MCG TABLET PO (08:13)
[2019-03-29] MEDS: INSULIN GLARGINE 100 UNIT/ML 3ML PEN 40 UNIT SUBCUT (08:35)
[2019-03-29] MEDS: ESTRADIOL 1 MG TABLET PO (08:36)
[2019-03-29] MEDS: glyBURIDE 5 MG TABLET PO ×2 (08:36→16:37)
[2019-03-29] MEDS: BENZONATATE 100 MG CAPSULE PO ×2 (12:08→16:56)
[2019-03-29] MEDS: guaiFENesin ER 600 MG TAB PO ×2 (12:08→20:29)
[2019-03-29] MEDS: predniSONE 20 MG TABLET 40 MG PO (12:10)
[2019-03-29] MEDS: INSULIN ASPART 100 UNIT/ML INSULN PEN SUBCUT ×3 (12:10→22:03)
--- NOTE | 2019-03-29 12:17 | PT.IIE ---
Surgical History (Last Reviewed 03/28/19 @ 19:08 by PREET Deleon) Anesthesia (Resolved) Personal history of spine surgery (Resolved ~2003) Personal history of spine surgery (Resolved ~2005) Medical History (Last Reviewed 03/28/19 @ 19:08 by PREET Deleon) Cataract (Chronic ~2014) CVA, old, alterations of sensations (Chronic) Diabetes mellitus (Chronic ~1996) Eczema (Chronic ~2013) Excessive daytime sleepiness (Chronic) Foot pain (Chronic ~1962) Fractures (Resolved ~1962) Hepatitis C (Chronic ~1948) Nocturnal hypoxemia (Chronic) Obstructive sleep apnea of adult (Chronic ~08/2018) Snoring (Chronic) Physical Therapy Inpatient Evaluation/Re-Eval M1 PT/OT-IP Prior Functional Status Start: 03/29/19 11:05 Freq: NEEDED Status: Active Protocol: Document 03/29/19 11:34 MB (Rec: 03/29/19 12:17 MB [id number]) Medical Review Prior Functional Status Medical History Reviewed Yes Communication Pt presents with confusion and daughter provides most of PLOF Mobility and Gait Use of RW in the house, has been incontinent when sleeping , has shower chair Activities of Daily Living and IADL's Mod I Social History Household Members family Living Arrangements House Number of Floors (Floors) One Floor Number of Stairs To Enter/Railing? 3-4 steps with rail Home Environment Built-In Shower Seat Home Equipment Front Wheel Walker Employment Status Retired M2 PT-IP Current Condition Start: 03/29/19 11:05 Freq: NEEDED Status: Active Protocol: Document 03/29/19 11:34 MB (Rec: 03/29/19 12:17 MB [id number]) Physical Therapy Current Condition Current Condition Evaluation Date 03/29/19 Treatment Diagnosis Cough, weakness, confusion in setting of bronchitis and hypoxemia Precautions Other Precautions Fall risk, SEAY and sats in the high 90s on 1L M3 PT-IP Subjective Start: 03/29/19 11:05 Freq: NEEDED Status: Active Protocol: Document 03/29/19 11:34 MB (Rec: 03/29/19 12:17 MB [id number]) Subjective Physical Therapy Visit Type Type Initial Evaluation Visit Start Time 11:34 Visit Stop Time 11:45 Total Visit Minutes 11 Physical Therapy Visit Comments Patient Goals Pt has a hard time communicating goals. She states she wants to get therapy (PT) Therapy Pain Assessment Pain When Pain Assessed At Rest Pain Present Pain Present Denied Pain M4 PT-IP Mobility and Gait Start: 03/29/19 11:05 Freq: NEEDED Status: Active Protocol: Document 03/29/19 11:34 MB (Rec: 03/29/19 12:17 MB [id number]) PT-Bed Mobility Assessment Rolling Level of Assist Standby Assistance Supine to Sit Supine to Sit Standby Assistance Sit to Supine Sit to Supine Standby Assistance PT-Transfer Assessment Sit to and From Stand Sit to and from Stand Moderate Assistance,1 Person Assistance Equipment Transfer Assistive Device Front Wheeled Walker Transfers Transfer Destination Bedside Commode Transfer Technique Stand Step Pivot Transfer Ability Level of Assist Moderate Assistance,1 Person Assistance Comments Mobility Comments Pt presents with decreased safety awareness, requires support under arms to stand Gait Assessment Gait Gait Assistance Required: Moderate Assistance,1 Person Assist Distance (Feet) 5 Assistive Devices Assistive Device Front Wheeled Walker Gait Deviations General Gait Pattern Decreased Stride Length, Decreased Feet Clearance, Flexed Trunk Comments Gait Comments Pt gait trains with PT mod A and RW from the chair to the bed to assess bed mobility. She requires VCs for walker use and to step back and reach for the bed. Similarly, cues to side step to the right with the rolling walker to step pivot transfer to the BSC. Assist for hygiene with toileting and left on BSC with PATIENT DAY COORDINATOR. PT-Balance Assessment Sitting Balance and Reactions Static Sitting Balance Ability Fair Dynamic Sitting Balance Ability Fair Standing Balance and Reactions Static Standing Balance Ability Fair Dynamic Standing Balance Ability Fair M5 PT-IP Objective Assessments Start: 03/29/19 11:05 Freq: NEEDED Status: Active Protocol: Document 03/29/19 11:34 MB (Rec: 03/29/19 12:17 MB [id number]) Orientation Orientation/Cognition Level of Alertness Confusional State Orientation Name,Birthday,Month,Date,Year Safety Awareness Decreased Safety Awareness Gross Range of Motion Upper Extremity ROM Assessment Within Functional Limits Lower Extremity ROM Assessment Within Functional Limits Strength Upper Extremity Strength Assessment Within Functional Limits Lower Extremity Strength Assessment Within Functional Limits Sensation Assessment Comments Sensation Comments Pt cannot follow commands M7 PT-IP Assessment and Plan Start: 03/29/19 11:05 Freq: NEEDED Status: Active Protocol: Document 03/29/19 11:34 MB (Rec: 03/29/19 12:17 MB [id number]) PT Summary Assessment and Plan Potential Rehabilitation Potential Fair Status of Condition at Evaluation Evolving Summary Impairments Balance,Coordination,Cognition ,Bed Mobility,Transfers,Gait, Activity Tolerance Assessment Summary Pt is am 83 y/o female presenting with SEAY that she cannot rate per Dyspnea Scale. Her oxygen remains in the 90s on 1L O2 with mobility. She presents with confusion and daughter provides most of history. Recommend respiratory consult for determination of O2 needs and use of incentive spirometer. Pt presents with decreased transfer and gait ability as well as impulsivity and decreased safety awareness. She will benefit from acute and post-acute PT to improve safety, transfers, balance and gait. Barriers include respiratory and cognitive status. Goals Bed Mobility Goal Independent Transfer Goal Independent,Front Wheeled Walker Gait Goal Independent,Front Wheel Walker Gait Distance 100 Other Goals Pt will perform HEP with cues to improve breathing. Pt will ascend and descend 3 steps with rail and superv to allow home entrance when she gets back home. Pt will perform 5 reps sit to stand without UE support in less than 13 sec to improve functional mobility. Frequency of Treatment Frequency Of Treatment Once a Day Treatment Plan Physical Therapy Treatment Plan Bed Mobility Training,Transfer Training,Gait Training, Therapeutic Exercise,Balance Retraining Recommendations To Nursing Amount of Assist Needed 1 Person Assist Discharge Recommendations PT Discharge Recommendations SNF Rehab Equipment Needed for Home Before 3-in-1 BSC needed when she Discharge discharges home
--- NOTE | 2019-03-29 13:08 | P.HP_ITS ---
History of Present Illness History of Present Illness Date Patient Seen: 03/29/19 Time Patient Seen: 10:00 Chief complaint: COUGH,SOILING SELF,WEAKNESS Narrative: Pt is a 83 year old woman with obstructive sleep apnea, depression, hypertension, type 2 diabetes on insulin, and history of CVA who presented with confusion. The majority of the history was provided by her daughters were present at the time of our encounter. They report that yesterday, the patient w as not acting like her usual self. She enjoys playing video games on her computer, but was unable to get this started. She is trying to play games on her phone, which was not even turned on. This is what prompted them to bring her into the emergency room. They also report the for the past week the patient has had a progressively worsening cough. she was seen by Dr. barrera on 03/23 and diagnosed with a viral URI with recommendations for supportive care at home. She states that her cough is persistent, and can be productive of a clear to white frothy sputum. She does endorse having frequent wheezing and feeling very short of breath. She reports having mild chest pain, but believes this is just from her coughing and more muscular in nature. Her daughter is also report that for the last 3 days she has been incontinent of stool and increasingly incontinent of urine. Her stool is very loose to liquid. She has not had any bowel movement in the toilet. The patient denies any abdominal pain or dysuria. She denies any recent antibiotic use. No recent fevers or chills. Patient History Medical History Cataract (Chronic ~2014) CVA, old, alterations of sensations (Chronic) Diabetes mellitus (Chronic ~1996) Eczema (Chronic ~2013) Excessive daytime sleepiness (Chronic) Foot pain (Chronic ~1962) Fractures (Resolved ~1962) Hepatitis C (Chronic ~1948) Nocturnal hypoxemia (Chronic) Obstructive sleep apnea of adult (Chronic ~08/2018) Snoring (Chronic) Surgical History Anesthesia (Resolved) Personal history of spine surgery (Resolved ~2003) Personal history of spine surgery (Resolved ~2005) Family & Social History Family History Brother No problems noted. Father No problems noted. Mother No problems noted. Social History: household members family Prior Living Arrangements House Safety & Behavioral: Feels Safe in Current Yes Environment Been Physically Hurt or No Threatened By a Person Suicidal Ideation Description None Tobacco & Substance use: Smoking Status Never smoker alcohol intake never alcohol intake frequency 0-2 drinks per day Substance Use Type does not use Meds Home Medications and Allergies Home Medications Medication Instructions Recorded Confirmed Type insulin syringe,safetyneedle 0.5 #500 each 04/13/18 03/28/19 Rx mL 29 gauge x 1/2 blood sugar diagnostic #100 each 08/01/18 03/28/19 Rx Resmed Airsense 10 CPAP #1 ea 11/15/18 03/28/19 History estradiol 1 mg tablet 1 mg PO QAM #90 tab 02/28/19 03/28/19 Rx furosemide 20 mg tablet 20 mg PO QAM #90 tab 02/28/19 03/28/19 Rx levothyroxine 50 mcg tablet 50 mcg PO DAILY #90 tab 02/28/19 03/28/19 Rx losartan 100 mg tablet 100 mg PO QPM #90 tab 02/28/19 03/28/19 Rx lovastatin 20 mg tablet 20 mg PO QPM #90 tab 02/28/19 03/28/19 Rx metformin 1,000 mg tablet 1,000 mg PO BIDCC #180 tab 02/28/19 03/28/19 Rx miscellaneous medical supply #1 each 03/02/19 03/28/19 Rx donepezil 5 mg PO BEDTIME 03/28/19 03/28/19 History glyburide 5 mg PO BID 03/28/19 03/28/19 History insulin glargine [Basaglar KwikPen 40 unit SUBCUT DAILY 03/28/19 03/28/19 History U-100 Insulin] Allergies Allergy/AdvReac Type Severity Reaction Status Date / Time penicillin G [PENICILLIN G] Allergy Mild Verified 03/28/19 14:46 Review of Systems Constitutional Constitutional: Denies body ache(s), Denies chills, Denies fever(s), Reports lack of energy and Reports snoring Cardiovascular Cardiovascular: Denies chest pain with activity, Denies generalize swelling, Denies rapid, pounding, or irregular heartbeat, Reports shortness of breath and Denies shortness of breath when lying down Respiratory Respiratory: Reports cough, Denies hemoptysis, Reports dyspnea, Reports snoring, Denies stridor and Reports wheezing Gastrointestinal Gastrointestinal: Denies abdominal pain, Denies melena, Denies hematochezia, Denies constipation, Reports fecal incontinence, Reports loose stools, Denies nausea and Denies vomiting Genitourinary Genitourinary: Reports urinary frequency and Reports urinary incontinence Musculoskeletal Musculoskeletal: Denies myalgias Endocrine Endocrine: Denies palpitations Allergic/Immunologic Allergic/Immunologic: Reports wheezing Exam Vital Signs (past 8 hours): - 03/29/19 08:00 03/29/19 10:27 03/29/19 10:28 Temperature 97.3 F L Pulse Rate 74 Respiratory Rate 22 Blood Pressure 156/70 H Pulse Oximetry 95 88 L 95 03/29/19 12:00 Temperature 98.7 F Pulse Rate 87 Respiratory Rate 24 Blood Pressure 154/72 H Pulse Oximetry 97 Oxygen Delivery Method Nasal Cannula Oxygen Flow Rate 1 Narrative Exam Narrative: GEN - alert, cooperative and no distress HEENT - normocephalic and atraumatic, sclera white, moist mucus membranes, throat non-erythematous NECK - FROM, no adenopathy, no JVD HEART - RRR, S1, S2 normal, no S3 or S4, no murmurs LUNGS - symmetric chest rise, no accessory muscles, significant expiratory wheezing in all lung negro, coarse breath sounds throughout, decreased air movement ABD - nondistended, normal bowel sounds, soft, nontender and no hepatomegaly, splenomegaly or masses EXT - no cyanosis, clubbing or edema SKIN - no rashes or suspicious lesions NEURO - alert and and oriented to person, place and situation, no gross deficits Objective Labs Result Diagrams: 03/28/19 19:00 03/29/19 05:19 Labs: Laboratory Results - last 24 hr 03/28/19 03/28/19 03/28/19 19:00 19:00 19:00 WBC 11.7 H RBC 4.40 Hgb 12.7 Hct 39.1 MCV 89.0 MCH 28.9 MCHC 32.5 RDW 14.5 Plt Count 314 Neut % (Auto) 79.2 H Lymph % (Auto) 10.7 L Antelope % (Auto) 9.0 Eos % (Auto) 0.5 L Baso % (Auto) 0.6 Neut # (Auto) 9300 H Lymph # (Auto) 1300 Antelope # (Auto) 1100 H Eos # (Auto) 100 Baso # (Auto) 100 PT INR APTT Sodium 136 L Potassium 4.4 Chloride 98 Carbon Dioxide 26 BUN 18 H Creatinine 0.80 Estimated GFR > 60.0 BUN/Creatinine Ratio 22.5 H Glucose 219 H Hemoglobin A1c Lactate Calcium 10.8 H Total Bilirubin 0.5 AST 17 ALT 13 Alkaline Phosphatase 88 Total Creatine Kinase CK-MB (CK-2) CK-MB (CK-2) Rel Index Troponin I B-Natriuretic Peptide < 100 Total Protein 6.3 Albumin 3.6 Globulin 2.7 Albumin/Globulin Ratio 1.3 Procalcitonin 0.11 Urine Color Urine Appearance Urine pH Ur Specific [place] Urine Protein Urine Glucose (UA) Urine Ketones Urine Occult Blood Urine Nitrate Urine Bilirubin Urine Urobilinogen Ur Leukocyte Esterase Urine RBC Urine WBC Ur Squamous Epith Cells Urine Bacteria Ur Culture Indicated? Chlamy pneumoniae PCR Adenovirus (PCR) B.parapertussis DNA PCR Coronavirus OC43 (PCR) Coronavirus HKU1 (PCR) Coronavirus 229E (PCR) Coronavirus NL63 (PCR) Human Metapneumovir PCR Influenza Type A (PCR) Influenza Type B (PCR) M. pneumoniae (PCR) Parainfluenza 1 (PCR) Parainfluenza 2 (PCR) Parainfluenza 3 (PCR) Parainfluenza 4 (PCR) RSV (PCR) Entero/Rhino (PCR) 03/28/19 03/28/19 03/28/19 19:00 19:00 19:00 WBC RBC Hgb Hct MCV MCH MCHC RDW Plt Count Neut % (Auto) Lymph % (Auto) Antelope % (Auto) Eos % (Auto) Baso % (Auto) Neut # (Auto) Lymph # (Auto) Antelope # (Auto) Eos # (Auto) Baso # (Auto) PT 12.2 INR 1.1 APTT 29 Sodium Potassium Chloride Carbon Dioxide BUN Creatinine Estimated GFR BUN/Creatinine Ratio Glucose Hemoglobin A1c Lactate Calcium Total Bilirubin AST ALT Alkaline Phosphatase Total Creatine Kinase 52 CK-MB (CK-2) TNP CK-MB (CK-2) Rel Index TNP Troponin I < 0.012 B-Natriuretic Peptide Total Protein Albumin Globulin Albumin/Globulin Ratio Procalcitonin Urine Color Urine Appearance Urine pH Ur Specific [place] Urine Protein Urine Glucose (UA) Urine Ketones Urine Occult Blood Urine Nitrate Urine Bilirubin Urine Urobilinogen Ur Leukocyte Esterase Urine RBC Urine WBC Ur Squamous Epith Cells Urine Bacteria Ur Culture Indicated? Chlamy pneumoniae PCR Not detected Adenovirus (PCR) Not detected B.parapertussis DNA PCR Not detected Coronavirus OC43 (PCR) Not detected Coronavirus HKU1 (PCR) Not detected Coronavirus 229E (PCR) Not detected Coronavirus NL63 (PCR) Not detected Human Metapneumovir PCR Not detected Influenza Type A (PCR) Not detected Influenza Type B (PCR) Not detected M. pneumoniae (PCR) Not detected Parainfluenza 1 (PCR) Not detected Parainfluenza 2 (PCR) Not detected Parainfluenza 3 (PCR) Not detected Parainfluenza 4 (PCR) Not detected RSV (PCR) Not detected Entero/Rhino (PCR) Not detected 03/28/19 03/28/19 03/29/19 19:00 19:25 05:19 WBC RBC Hgb Hct MCV MCH MCHC RDW Plt Count Neut % (Auto) Lymph % (Auto) Antelope % (Auto) Eos % (Auto) Baso % (Auto) Neut # (Auto) Lymph # (Auto) Antelope # (Auto) Eos # (Auto) Baso # (Auto) PT INR APTT Sodium 136 L Potassium 4.4 Chloride 100 Carbon Dioxide 28 BUN 17 Creatinine 0.90 Estimated GFR > 60.0 BUN/Creatinine Ratio 18.9 Glucose 258 H Hemoglobin A1c Lactate 1.4 Calcium 10.3 H Total Bilirubin AST ALT Alkaline Phosphatase Total Creatine Kinase CK-MB (CK-2) CK-MB (CK-2) Rel Index Troponin I B-Natriuretic Peptide Total Protein Albumin Globulin Albumin/Globulin Ratio Procalcitonin Urine Color Yellow Urine Appearance Cloudy Urine pH 5.5 Ur Specific [place] 1.025 Urine Protein 1+ H Urine Glucose (UA) Negative Urine Ketones 1+ H Urine Occult Blood Negative Urine Nitrate Negative Urine Bilirubin Negative Urine Urobilinogen 0.2 Ur Leukocyte Esterase Negative Urine RBC None seen Urine WBC 1-5/hpf Ur Squamous Epith Cells 0-1 /hpf Urine Bacteria Many (>30) H Ur Culture Indicated? Specimen cultured Chlamy pneumoniae PCR Adenovirus (PCR) B.parapertussis DNA PCR Coronavirus OC43 (PCR) Coronavirus HKU1 (PCR) Coronavirus 229E (PCR) Coronavirus NL63 (PCR) Human Metapneumovir PCR Influenza Type A (PCR) Influenza Type B (PCR) M. pneumoniae (PCR) Parainfluenza 1 (PCR) Parainfluenza 2 (PCR) Parainfluenza 3 (PCR) Parainfluenza 4 (PCR) RSV (PCR) Entero/Rhino (PCR) 03/29/19 05:19 WBC RBC Hgb Hct MCV MCH MCHC RDW Plt Count Neut % (Auto) Lymph % (Auto) Antelope % (Auto) Eos % (Auto) Baso % (Auto) Neut # (Auto) Lymph # (Auto) Antelope # (Auto) Eos # (Auto) Baso # (Auto) PT INR APTT Sodium Potassium Chloride Carbon Dioxide BUN Creatinine Estimated GFR BUN/Creatinine Ratio Glucose Hemoglobin A1c 6.9 H Lactate Calcium Total Bilirubin AST ALT Alkaline Phosphatase Total Creatine Kinase CK-MB (CK-2) CK-MB (CK-2) Rel Index Troponin I B-Natriuretic Peptide Total Protein Albumin Globulin Albumin/Globulin Ratio Procalcitonin Urine Color Urine Appearance Urine pH Ur Specific [place] Urine Protein Urine Glucose (UA) Urine Ketones Urine Occult Blood Urine Nitrate Urine Bilirubin Urine Urobilinogen Ur Leukocyte Esterase Urine RBC Urine WBC Ur Squamous Epith Cells Urine Bacteria Ur Culture Indicated? Chlamy pneumoniae PCR Adenovirus (PCR) B.parapertussis DNA PCR Coronavirus OC43 (PCR) Coronavirus HKU1 (PCR) Coronavirus 229E (PCR) Coronavirus NL63 (PCR) Human Metapneumovir PCR Influenza Type A (PCR) Influenza Type B (PCR) M. pneumoniae (PCR) Parainfluenza 1 (PCR) Parainfluenza 2 (PCR) Parainfluenza 3 (PCR) Parainfluenza 4 (PCR) RSV (PCR) Entero/Rhino (PCR) Assessment & Plan Assessment & Plan narrative: Pt is a 83 year old woman with obstructive sleep apnea, depression, hypertension, type 2 diabetes on insulin, hypothyroidism, and history of CVA who presented with confusion, cough, incontinence. CXR and viral respiratory panel without abnormalities, but exam consistent with upper respiratory infection and reactive airway. U/A suggestive of UTI, started on antibiotics in the ED. 1) UTI: - Continue Ceftriaxone - F/U urine cultures 2) URI with RAD: - Benzonatate and guaifenesin - Prednisone 40mg daily - Duo-nebs PRN - Repeat CXR if not improving 3) Stool incontinence: - C diff PCR - Immodium if C diff negative 4) DM Type 2: Last A1C 6.9 - Increase Glargine to 45 units daily - ACHS checks - Sliding scale for additional coverage - Continue Metformin, Glyburide 5) HTN: - Continue Losartan, Lovastatin 6) Hypothyroidism: - Continue Levothyroxine Code status: DNR FEN: Diabetic diet DVT prophylaxis: Lovenox Dispo: Pending urine culture, continued improvement in mental status, respiratory improvement. Anticipate at least 2 midnights. Quality VTE Deep Vein Thrombosis/Pulmonary Embolism Present on Admission: No
--- NOTE | 2019-03-29 13:50 | PC.NURSE ---
Resp/LOC: SI can't stop coughing. Pt has had a persistent cough all day, did get meds tessalon and quief for cough and they have only sl helped. Sits in the chair all day because she can breath easier and has less choking when up. Must be verb cued to slow down, not eat to fast, ect or will over do. Pt had some diarrhea this am and MD was made aware. None since to send bowel spec. Mentation better this afternoon, no further hallucinations since this am, SDo you see that handsome young man over there in the corner. No one there, same explained to pt, pt looked at corner harder. SI think your right, no one is there. has not done this since this am but remains disoriented to time, events, occ place. SHow did I get in a hospital? Factual information given. Cont w/poc.
--- NOTE | 2019-03-29 15:27 | CM.IDA ---
Initial DCP Assessment Note: Pt is an 83 yo female, resident of [place]. Pt presents w/confusion and found to have UTI and upper resp. infection, abx started in ER. PCP: Pierre Chung Payer: JACQUELINE/CLAUDIO. Reviewed chart and spoke w/ SWAPNA Ricketts. Pt remains confused but seems to be improving since last night. Supportive family has been at bedside off/on today, this CINDER MAN missed family for assessment. According to PT initial eval, pt is mod indp at home, has a walker for indoor ambulation, dtrs assist w/ ADLs. Therapy team recommending SNF d/t decreased safety awareness, pt requiring addtl. cueing today. Mobility impaired by resp. compromise and confusion. Pt may progress towards home w/family, r/o need for HH. Further assessment w/family tomorrow as medical POC unfolds. Pt may need SNF at DC and has the coverage to do so w/JACQUELINE and inpt status dated 03.28.19. ARIES Cormier Discharge Planning/Care Management CM Discharge Assessment Start: 03/29/19 15:23 Freq: Status: Active Protocol: Document 03/29/19 15:23 PAULINA (Rec: 03/29/19 15:27 [id number]) Discharge Planning Assessment Assigned Advisory Internship ARIES Pelayo DPOA/Assigned Designee Name Gunjan Ray dtr, Malu Lorenzana dtr Contact Information Gunjan: [phone] Malu: [phone], Advance Directives? Yes History Provided By Patient,Family Member,Medical Record Prior Living Arrangements House Household Members family Type of transportation used prior to Relies on Others admit Independent with ADL's No: Needs assist from family Is patient alert and oriented? No: UTI, hypoexemia Needs Assistance With Bathing,Grooming,Meal Prep, Toileting,Managing Medications ,Home Chores / Shopping Comment Does not always use her walker Comment Needs further assessment Transportation Arrangement Daughter
[2019-03-29] MEDS: LOSARTAN 50 MG TABLET 100 MG PO (16:37)
[2019-03-29] MEDS: LOVASTATIN 20 MG TABLET PO (16:38)
[2019-03-29] MEDS: ALBUTEROL/IPRATROPIUM 3 ML AMPUL INH (19:03)
[2019-03-29] MEDS: DONEPEZIL 5 MG TABLET PO (20:29)
[2019-03-30] VITALS (12 sets, daily range): BP systolic 134–170; BP diastolic 60–100; PULSE 70–97; RESP 16–22; TEMP 36.2–36.8; O2SAT 90–94
--- NOTE | 2019-03-30 00:20 | PC.NURSE ---
Addendum entered by Monisha Ross R.N. 03/30/19 02:57: On review of labs noted urine culture is growing gm + cocci so will place on contact isolation until final results received to rule out MRSA. Original Note: Patient is alert but did not know day of month/week or why she is in the hospital. Breath sounds diminished but CTA; did have audible expiratory wheezing when up to bathroom. Continues to have frequent cough. On oxygen currently at 1L/min per NC with sat of 94%. HRR. BP elevated at 172/87. Denies nausea. Incontinent of B&B. Able to turn self in bed and is up to bathroom with walker and 1 assist; weak on legs but steady. Wearing bilateral SCD's. Feet not as reddned tonight. Noted new bruise in left AC and posterior left hand. Denies pain. Fall risk score is high and bed alarm is activated.
[2019-03-30 01:56] LABS: Clostridium Difficile Tox PCR Negative for C. diff
[2019-03-30] MEDS: CEFTRIAXONE 1 GM/50 ML FROZ.PIGGY IV ×2 (04:57→16:54)
[2019-03-30] MEDS: SODIUM CHLORIDE 0.9% FLUSH 10 ML IV ×3 (04:57→21:33)
[2019-03-30 05:30] LABS: Add Manual Diff / Slide Review NO; Basophils Absolute Auto 0 /uL (0-100); Basophils Percent Auto 0.4 % (0-2); Eosinophils Absolute Auto 0 /uL (0-450); Hemoglobin 11.8 g/dL (12.0-16.0); Lymphocytes Absolute Auto 900 /uL (1100-4500); Lymphocytes Percent Auto 6.4 % (25-40); Mean Corpuscular HGB Conc 32.8 % (30-36); Mean Corpuscular Hemoglobin 29.2 PG (26-34); Monocytes Absolute Auto 1000 /uL (0-900); Monocytes Percent Auto 7.5 % (3-14); Neutrophils Absolute Auto 11500 /uL (1500-7000); Neutrophils Percent Auto 85.7 % (50-75); Platelet Count 320 X10^3/uL (150-400); Red Blood Cell Count 4.05 X10^6/uL (4.0-5.2); Red Cell Distribution Width 14.3 % (11.6-14.8); White Blood Cell Count 13.5 X10^3/uL (4.5-11.0)
[2019-03-30 05:49] LABS: Blood Urea Nitrogen 24 mg/dL (7-17); Calcium 11.1 mg/dL (8.4-10.2); Carbon Dioxide 29 mmol/L (22-32); Chloride 103 mmol/L (98-107); Estimated Glomerular Filt Rate 53.2 mL/min (>60); Glucose 296 mg/dL (80-110); HEMOLYSIS < 15 (0-50); Potassium 4.9 mmol/L (3.4-5.1); Sodium 137 mmol/L (137-145)
[2019-03-30] MEDS: guaiFENesin ER 600 MG TAB PO ×2 (08:40→21:33)
[2019-03-30] MEDS: FUROSEMIDE 20 MG TABLET PO (08:40)
[2019-03-30] MEDS: ESTRADIOL 1 MG TABLET PO (08:40)
[2019-03-30] MEDS: glyBURIDE 5 MG TABLET PO ×2 (08:40→16:49)
[2019-03-30] MEDS: ENOXAPARIN 40 MG/0.4 ML SYRINGE SUBCUT (08:40)
[2019-03-30] MEDS: METFORMIN HCL 500 MG TABLET 1000 MG PO ×2 (08:41→16:49)
[2019-03-30] MEDS: BENZONATATE 100 MG CAPSULE PO (08:41)
[2019-03-30] MEDS: LEVOTHYROXINE 50 MCG TABLET PO (08:41)
[2019-03-30] MEDS: INSULIN ASPART 100 UNIT/ML INSULN PEN SUBCUT ×4 (08:41→21:34)
[2019-03-30] MEDS: predniSONE 20 MG TABLET 40 MG PO (08:41)
[2019-03-30] MEDS: INSULIN GLARGINE 100 UNIT/ML 3ML PEN 45 UNIT SUBCUT (08:42)
[2019-03-30] MEDS: ALBUTEROL/IPRATROPIUM 3 ML AMPUL INH ×4 (09:02→21:05)
--- NOTE | 2019-03-30 09:21 | DI.RAD.S_ITS ---
PROCEDURE: XR CHEST 1V INDICATIONS: persistent oxygen demand, rising WBC count TECHNIQUE: One view of the chest was acquired. COMPARISON: [facility], [place], XR CHEST 2V, 03/28/2019, 14:47. FINDINGS: Surgical changes and devices: None. Lungs and pleura: Mild increased pulmonary vascularity, more prominent when compared to prior exam. Mediastinum: Mediastinal contours appear normal. Heart size is mildly enlarged. Bones and chest wall: No suspicious bony lesions. Overlying soft tissues appear unremarkable. IMPRESSION: Mild increased vascularity suggestive of edema. No focal consolidations. Dictated by: Ariana Cantor M.D. on 03/30/2019 at 10:23 Approved by: Ariana Cantor M.D. on 03/30/2019 at 10:24
--- NOTE | 2019-03-30 09:23 | PM.PN.1 ---
Subjective Subjective Date Patient Seen: 03/30/19 Time Patient Seen: 08:45 Interval history: The pt this morning reports persistent severe cough. It is intermittently productive of clear sputum. She feels she is wheezing constantly. She feels very SOB. She denies any chest pain, abdominal pain, flank pain. As per her daughters, present this morning, the pt is still confused but minimally improved from yesterday. Exam Vital Signs (past 8 hours): - 03/30/19 03:32 03/30/19 08:00 03/30/19 09:02 Temperature 98.1 F 97.5 F L Pulse Rate 83 70 82 Respiratory Rate 22 20 18 Blood Pressure 148/100 H 146/68 H Pulse Oximetry 93 92 92 Oxygen Delivery Method Room Air Oxygen Flow Rate 0 Narrative Exam Narrative: Gen: NAD, sitting comfortably in bed, appears well, speaking in complete sentences, frequent strong cough CV: RRR, no murmurs Resp: air movement minimally improved from yesterday, worsened expiratory wheezing in all lung negro, no crackles Abd: soft, nontender, nondistended Ext: no edema Neuro: oriented to place and name, not to time or situation, no other gross deficits Objective Labs Result Diagrams: 03/30/19 05:02 03/30/19 05:02 Labs: Laboratory Results - last 24 hr 03/30/19 03/30/19 03/30/19 00:50 05:02 05:02 WBC 13.5 H RBC 4.05 Hgb 11.8 L Hct 36.0 MCV 89.0 MCH 29.2 MCHC 32.8 RDW 14.3 Plt Count 320 Neut % (Auto) 85.7 H Lymph % (Auto) 6.4 L Kendall % (Auto) 7.5 Eos % (Auto) 0.0 L Baso % (Auto) 0.4 Neut # (Auto) 17409 H Lymph # (Auto) 900 L Kendall # (Auto) 1000 H Eos # (Auto) 0 Baso # (Auto) 0 Sodium 137 Potassium 4.9 Chloride 103 Carbon Dioxide 29 BUN 24 H Creatinine 1.00 Estimated GFR 53.2 L BUN/Creatinine Ratio 24.0 H Glucose 296 H Calcium 11.1 H C. difficile Tox (PCR) Negative for c. diff Assessment & Plan Assessment & Plan narrative: Pt is a 83 year old woman with obstructive sleep apnea, depression, hypertension, type 2 diabetes on insulin, hypothyroidism, and history of CVA who presented with confusion, cough, incontinence. CXR and viral respiratory panel without abnormalities, but exam consistent with upper respiratory infection and reactive airway. U/A suggestive of UTI, started on antibiotics in the ED - culture now confirms. 1) UTI: Urine growing E coli and Aerococcus urinae - Continue Ceftriaxone 2) URI with RAD: Wheezing intensified today, likely due to slightly improved air movement - Benzonatate and guaifenesin - Change to IV Methylprednisolone 60mg BID from Prednisone - Duo-nebs q4hr scheduled - Repeat CXR this AM due to severity of cough, persistent oxygen demand 3) Stool incontinence: - Immodium PRN 4) DM Type 2: Last A1C 6.9 - Glargine to 45 units daily. Will likely need to increase further with IV steroids. - ACHS checks - Sliding scale for additional coverage - Continue Metformin, Glyburide 5) HTN: BP labile - Continue Losartan, Lovastatin 6) Hypothyroidism: - Continue Levothyroxine Code status: DNR FEN: Diabetic diet DVT prophylaxis: SCDs Dispo: Pending continued improvement in mental status, respiratory improvement. Quality VTE Deep Vein Thrombosis/Pulmonary Embolism Present on Admission: No
[2019-03-30] MEDS: methylPREDNISolone 125 MG/2 ML VIAL 60 MG IV ×2 (10:07→21:33)
--- NOTE | 2019-03-30 11:08 | OT.IP.EVAL ---
Past Medical History (Last Reviewed 03/28/19 @ 19:08 by PREET Deleon) Cataract (Chronic ~2014) CVA, old, alterations of sensations (Chronic) Diabetes mellitus (Chronic ~1996) Eczema (Chronic ~2013) Excessive daytime sleepiness (Chronic) Foot pain (Chronic ~1962) Fractures (Resolved ~1962) Hepatitis C (Chronic ~1948) Nocturnal hypoxemia (Chronic) Obstructive sleep apnea of adult (Chronic ~08/2018) Snoring (Chronic) Surgical History (Last Reviewed 03/28/19 @ 19:08 by PREET Deleon) Anesthesia (Resolved) Personal history of spine surgery (Resolved ~2003) Personal history of spine surgery (Resolved ~2005) Occupational Therapy Inpatient Evaluation/Re-Eval M1 PT/OT-IP Prior Functional Status Start: 03/29/19 11:05 Freq: NEEDED Status: Active Protocol: Document 03/30/19 11:08 OMER (Rec: 03/30/19 11:50 OMER [id number]) Medical Review Prior Functional Status Medical History Reviewed Yes Diet/Fluid Consistency Regular Communication WNL Mobility and Gait Pt ambulates with 4WW in the house and community. Activities of Daily Living and IADL's Mod I with self care including seated shower. Daughter, Malu, lives with pt and does all cooking, IADLS including driving. Daughter does not work outside the home. Prior Functional Level (Other details) Second daughter lives next door and can assist PRN. Social History Household Members family Living Arrangements House Number of Floors (Floors) One Floor Number of Stairs To Enter/Railing? 4 with B rails Home Environment High Toilet,Tub/Shower Home Equipment Tub Transfer Bench,Hand Held Shower,Grab Bars Near Toilet, Grab Bars In Shower Employment Status Retired Additional Social History Comment Daughters provide 24 hr assist to pt M2 OT-IP Current Condition Start: 03/30/19 11:22 Freq: Status: Active Protocol: Document 03/30/19 11:08 OMER (Rec: 03/30/19 11:50 OMER [id number]) Occupational Therapy Current Condition Current Condition Evaluation Date 03/30/19 Treatment Diagnosis decr'd cognition, activity tolerance, self care, mobility DX: UTI, Respiratory Infection Diagnosis Onset Date 03/28/19 Post Operative Precautions Other Precautions STM deficits, fall risk M3 OT- IP Subjective and Pain Start: 03/30/19 11:22 Freq: Status: Active Protocol: Document 03/30/19 11:08 PJ (Rec: 03/30/19 11:50 [facility] [id number]) OT- Subjective Occupational Therapy Visit Type Type Initial Evaluation Visit Start Time 10:20 Visit Stop Time 11:08 Total Visit Minutes 48 Notes Both daughters observing this session. Occupational Therapy Visit Comments Patient Comments I am feeling better today, except for this cough. Patient/Caregiver Goals to get rid of cough and go home OT Pain Assessment Pain When Pain Assessed After Treatment Pain Present Pain Present Denied Pain M4 OT- IP ADL's Start: 03/30/19 11:22 Freq: Status: Active Protocol: Document 03/30/19 11:08 PJ (Rec: 03/30/19 11:50 [facility] [id number]) OT DMA-Ywwi-Viyysen General Evaluation Self-Feeding Ability Independent OT ADL-Grooming General Evaluation Grooming Ability Contact Guard Assistance Areas Needing Assistance Combing/Brushing Hair,Face Washing Comments OT Grooming Comments standing at sink with FWW OT ADL-Dressing General Eval Lower Body Dressing Ability Minimal Assistance Areas Needing Assistance Underpants/Brief Comments OT Dressing Comments min assist to get clean brief over feet while sitting on toilet; CGA for standing balance when pulling brief over hips OT ADL-Toileting General Evaluation Toileting Ability Minimal Assistance Areas Needing Assistance Perform Perineal Hygiene Comments OT Toileting Comments after loose stool OT ADL-Bathing Comments OT Bathing Comments to be assessed as activity tolerance improves M5 OT- IP IADL's Start: 03/30/19 11:22 Freq: Status: Active Protocol: Document 03/30/19 11:08 PJ (Rec: 03/30/19 11:50 [facility] [id number]) OT-Instrumental Activities of Daily Living Deficits IADL Deficits Identified Deficits Home Safety Awareness Awareness of Need for Assistance at Home Good Awareness Medication Management Medication Management Caregiver Provides Supervision Medication Management Comments pt has meds bubble packed and daughter supervises med management Money Management Money Management Caregiver Provides Assistance Money Management Comments pt was making errors in bill paying, so daughter now manages finances Meal Preparation Meal Preparation Caregiver Provides Assist Meal Preparation Comments daughter does all meal prep Operating Cost Clerk Operating Cost Clerk Caregiver Provides Assist Operating Cost Clerk Comments daughters do all paper sorter Driving Driving Caregiver Provides Assist Driving Comments pt no longer drives, family provides transport M6 OT- IP Functional Cognition Start: 03/30/19 11:22 Freq: Status: Active Protocol: Document 03/30/19 11:08 PJM (Rec: 03/30/19 11:50 [facility] [id number]) Cognitive Factors Limiting Selfcare Function Cognitive Ability Patient Orientation Name,Age,Birthday,Month,Date, Year,Day of Week,Place Attention Span Ability Capable of Focused Attention Ability to Follow Commands Able to Follow One Step Commands Memory Description Immediate Impaired,Short Term Impaired Executive Function Ability Unable to Remember Details Cognitive Tests SLUMS 01/25 (Norm 27) Cognitive Comments Cognitive Assessment Comments Pt had difficulty with immediate, short term and working memory tasks. She is unable to do mental math and is slow with word generation. She is unable to place numbers or hands on clock drawing. Pt recalls 1/5 words after 5 min delay and recalls 1/4 facts about short paragraph read to her. OT- Vision and Hearing OT- Hearing Assessment OT- Hearing Assessment WFL OT- Vision Assessment Visual Acuity WFL,Glasses All The Time M7 OT- IP Mobility and Balance Start: 03/30/19 11:22 Freq: Status: Active Protocol: Document 03/30/19 11:08 PJM (Rec: 03/30/19 11:50 [facility] [id number]) OT- Bed Mobility Assessment Supine to Sit Supine to Sit Assist Contact Guard Assistance,Head of Bed Elevated,Bedrails Scooting Scooting to Edge of Bed Standby Assistance OT-Transfer Assessment Sit to and From Stand Sit to and from Stand Contact Guard Assistance, Minimal Assistance,1 Person Assistance,Use of Upper Extremities Transfers Transfer Ability 1 Person Assistance,Use of Upper Extremities Technique Transfer Destination Chair,Toilet Transfer Technique Stand Step Pivot Devices Transfer Assistive Devices Front Wheeled Walker Comments Mobility Comments Pt CGA for sit to stand then min assist to correct retropulsion when first arising. OT- Gait Assessment Gait Gait Assistance Required: Contact Guard Assist Distance (Feet) 25 Assistive Devices Assistive Device Gait Belt,Front Wheeled Walker Comments Gait Ability Comments needs verbal cues to not picker / packer FWW OT- Balance Assessment Sitting Balance and Reactions Static Sitting Balance Ability Good Dynamic Sitting Balance Ability Fair Standing Balance and Reactions Static Standing Balance Ability Fair Dynamic Standing Balance Ability Fair Comments Other Balance Tests/Deviations/Treatment with FWW : M8 OT- IP Objective Assessments Start: 03/30/19 11:22 Freq: Status: Active Protocol: Document 03/30/19 11:08 PJM (Rec: 03/30/19 11:50 PJM [id number]) OT Gross Range of Motion Upper Extremity Range of Motion Assessment Within Functional Limits OT Strength Upper Extremity Strength Assessment Within Functional Limits Hand [employer] Strength Hand Dominance Right OT- Coordination Assessment Comments Coordination Comments BUE WFL for self care OT-Muscle Tone Assessment Muscle Tone WNL Yes OT Sensation Assessment Comments Summary Comments BUE WNL Edema Edema Present Edema Comments Min edema noted in BLE's. Pt wears BLE compression hose at home per daughter. M9 OT- IP Assessment and Plan Start: 03/30/19 11:22 Freq: Status: Active Protocol: Document 03/30/19 11:08 PJM (Rec: 03/30/19 11:50 PJM [id number]) OT Summary Assessment and Plan Potential Rehabilitation Potential Good Analytic Complexity at Evaluation Low Summary OT Impairments Balance,Functional Cognition, Functional Mobility,Grooming, Dressing,Toileting,Bathing, Toilet Transfers,Shower Transfers Assessment Summary Low complexity OT assessment completed on this 83 yr old female admitted with confusion with DX of UTI and upper respiratory infection. Pt normally lives with her daughter and pt is independent with all self care including seated shower. She ambulates with 4WW in the home and community. Her daughter does all IADLS including driving. Pt presents today with significantly impaired cognition with score of 10/30 (norm 27/30) on SLUMS. See details above. Pt's daughter reports pt is not at her baseline level of cognition; however, pt did have some problems with bill paying and remembering to take medications at home, so daughter now assists with those tasks. Pt also has performance deficits in functional mobility/transfers requiring CGA to min assist for some retropulsion when she first arises. Pt was able to walk 25 ft in room today with O2 sats 91 on room air after mobility. Pt is below her baseline level of function in standing grooming,lower body dressing, bathing and toileting. Pt will benefit from OT services here to address the goals below. Anticipate pt will continue to improve and be able to d/c home. Pt's daughters state they can provide 24 hr assist to pt at home and they decline SNF placement. Pt may benefit from HH services at discharge pending progress here. Goals Grooming Goal Standby Assistance Dressing Goal Standby Assistance Toileting Goal Standby Assistance Bathing Goal Standby Assistance,Grab Bars, Hand Held Shower Sprayer Toilet Transfer Goal Standby Assistance Shower Transfer Goal Standby Assistance,Tub/Shower Combination,Tub Transfer Bench Patient/Caregiver Education Goal Demonstrate Energy Conservation and Pacing, Caregiver Independent Assisting Patient Days to Meet Goals 3 Frequency of Treatment Frequency Of Treatment Once a Day Treatment Plan OT Treatment Plan ADL Training,Functional Cognition Training,Functional Mobility,Patient/Family Education,Discharge Planning Discharge Recommendations OT Discharge Recommendations Home with 19/10 Assist,Home Health
--- NOTE | 2019-03-30 12:10 | PT.IPTN ---
Addendum entered and electronically signed by Jennifer Santos PTA 03/30/19 13:12: Recommend further acute and post acute PT to progress in strength, endurance to allow for increased functional independence. Original Note: Physical Therapy Treatment Note M2 PT-IP Current Condition Start: 03/29/19 11:05 Freq: NEEDED Status: Active Protocol: Document 03/29/19 11:34 MB (Rec: 03/29/19 12:17 MB [id number]) Physical Therapy Current Condition Current Condition Evaluation Date 03/29/19 Treatment Diagnosis Cough, weakness, confusion in setting of bronchitis and hypoxemia Precautions Other Precautions Fall risk, SEAY and sats in the high 90s on 1L M3 PT-IP Subjective Start: 03/29/19 11:05 Freq: NEEDED Status: Active Protocol: Document 03/30/19 11:23 SP (Rec: 03/30/19 13:08 SP [id number]) Subjective Physical Therapy Visit Type Type Treatment Note Visit Start Time 11:23 Visit Stop Time 12:10 Total Visit Minutes 47 Number of NAIL TECH Visits 1 Physical Therapy Visit Comments Patient Comments Pt willing to work with PT. Both daughters and grandson present in room. Therapy Pain Assessment Pain Present Pain Present Denied Pain M4 PT-IP Mobility and Gait Start: 03/29/19 11:05 Freq: NEEDED Status: Active Protocol: Document 03/30/19 11:23 SP (Rec: 03/30/19 13:08 SP [id number]) PT-Bed Mobility Assessment Rolling Type of Rolling Roll to Right,Roll to Left Level of Assist Standby Assistance Supine to Sit Supine to Sit Contact Guard Assistance, Bedrails Sit to Supine Sit to Supine Standby Assistance Scooting Scooting to Edge of Bed Standby Assistance PT-Transfer Assessment Sit to and From Stand Sit to and from Stand Contact Guard Assistance,Use of Upper Extremities Equipment Transfer Assistive Device Front Wheeled Walker,4 Wheeled Walker Orthotic/Prosthetic Devices or Brace: No Transfers Transfer Destination Bed,Chair,Toilet,Wheelchair Transfer Technique Stand Step Pivot Transfer Ability Level of Assist Contact Guard Assistance,1 Person Assistance,Use of Upper Extremities Comments Mobility Comments Pt was seated in chair, both daughters and grandson present when arrived. Pt had stable vitals throughout all mobility : O2 sat on room air mid to high 90s, HR mid 80s at rest and elevated to 110 bpm during mobility with crackling breath sounds. NAIL TECH educated patient on slow pursed lip breathing during activity and importance of rest breaks for recovery. Pt was able to cough up flem (dime size) into a tissue during tx. Pt was able to complete multiple sit to stands throughout treatment from chair, bed, toilet, w/c with cuing for use of BUE pushing to stand and reaching back for safe slow controlled descent while using FWW initially then trial 4WW as uses at home. Daughters complete caregiver training including bed mobility, transfers, gait and stair mgt CGA. Pt required education on brake management pre standing and sitting with remembering 25% of the time. NAIL TECH provided occasional cuing to daughters to give patient for pacing pivot transfers and body little closer positioning within FWW and 4WW for safety, no LOB. Pt was able to complete self hygiene mgt during standing with use of 4WW for support (brakes applied by patient), fair standing balance and endurance while washing hands at sink, noted leaning on sink secondary to decreased activity tolerance. Pt was able to complete supine <> sitting with use of bed rail SBA and HOB flat. Pt does get SOB supine flat and recommended elevating bed for proper breath mgt. Pt was up in the chair when left with all needs within reach and chair alarmed applied, daughters and grandson in room when left. Gait Assessment Gait Gait Assistance Required: Contact Guard Assist,1 Person Assist Distance (Feet) 200 Able to Maintain Weight Bearing Status Yes During Gait Assistive Devices Assistive Device Front Wheeled Walker,4 Wheeled Walker Orthotic/Prosthetic Devices or Brace: No Gait Deviations General Gait Pattern Antalgic,Decreased Stride Length,Decreased Feet Clearance,Lateral Trunk Lean Factors Limiting Gait Function Factors Limiting Gait Function Decreased Activity Tolerance, Decreased Strength,Poor Balance,Poor Safety Awareness, Respiratory Distress Comments Gait Comments Pt was able to tolerate further distance CGA provided by daughter and w/c follow by other daughter during ambulation today using FWW intially then trialed 4WW requiring occasional cuing for slow controlled pacing, viered off to L when turned head to L but self recovery no LOB. Pt required 3 stopped standing rest breaks during gait room to stairs and way back, and seated rest before and after stair mgt to recover from slight SOB maintaining mid 90s on room air and HR 110bpm, recovery of HR high 80s to low 90s with in 30 sec breaks. Stair Climbing Assessment Evaluation Level of Assist On Stairs Contact Guard Assistance,1 Person Assistance Devices Stair Climbing Assistive Devices Left Railing,Right Railing Technique/Endurance Stair Climbing Direction Ascend and Descend Stair Climbing Technique Step Over Step Number of Steps Climbed 3 Stair Climbing Set # Repetitions (reps) 2 Comments Stair Climbing Comments Pt was able to complete step over step 3 stairs using B HR CGA provided by daughter during caregiver training with NAIL TECH cuing for slow pace, improved demonstration and safety. No LOB. PT-Balance Assessment Sitting Balance and Reactions Static Sitting Balance Ability Good Dynamic Sitting Balance Ability Good Standing Balance and Reactions Static Standing Balance Ability Fair Dynamic Standing Balance Ability Fair Device Used FWW/4WW M5 PT-IP Objective Assessments Start: 03/29/19 11:05 Freq: NEEDED Status: Active Protocol: Document 03/29/19 11:34 MB (Rec: 03/29/19 12:17 MB [id number]) Orientation Orientation/Cognition Level of Alertness Confusional State Orientation Name,Birthday,Month,Date,Year Safety Awareness Decreased Safety Awareness Gross Range of Motion Upper Extremity ROM Assessment Within Functional Limits Lower Extremity ROM Assessment Within Functional Limits Strength Upper Extremity Strength Assessment Within Functional Limits Lower Extremity Strength Assessment Within Functional Limits Sensation Assessment Comments Sensation Comments Pt cannot follow commands M7 PT-IP Assessment and Plan Start: 03/29/19 11:05 Freq: NEEDED Status: Active Protocol: Document 03/30/19 11:23 SP (Rec: 03/30/19 13:08 SP [id number]) PT Summary Assessment and Plan Potential Rehabilitation Potential Fair Status of Condition at Evaluation Evolving Summary Impairments Balance,Coordination,Cognition ,Bed Mobility,Transfers,Gait, Activity Tolerance Progress Towards Goals Progressing Toward Goals Assessment Summary Pt required CGA throughout tx including cargiver training provided by daughter including bedmobility, transfers, gait, stair mgt using FWW/4WW. Pt requires cuing for proper brake mgt with 4WW and slow pacing body positioning at times closer to walker. Pt presents with decreased transfer and gait ability as well as impulsivity and decreased safety awareness. She will benefit from HH PT to improve safety, transfers, balance and gait. Barriers include respiratory and cognitive status. Goals Bed Mobility Goal Independent Transfer Goal Independent,Front Wheeled Walker Gait Goal Independent,Front Wheel Walker Gait Distance 100 Other Goals Pt will perform HEP with cues to improve breathing. Pt will ascend and descend 3 steps with rail and superv to allow home entrance when she gets back home. Pt will perform 5 reps sit to stand without UE support in less than 13 sec to improve functional mobility. Frequency of Treatment Frequency Of Treatment Once a Day Treatment Plan Physical Therapy Treatment Plan Bed Mobility Training,Transfer Training,Gait Training, Therapeutic Exercise,Balance Retraining Other Recommendations and Next Treatment Gait, transfers, ther ex, Focus balance activities with FWW/ 4WW, slow pacing for energy conservation. Recommendations To Nursing Amount of Assist Needed 1 Person Assist Discharge Recommendations PT Discharge Recommendations Home with 19/10 Assist,Home Health Equipment Needed for Home Before 3-in-1 BSC needed when she Discharge discharges home
[2019-03-30] MEDS: LOVASTATIN 20 MG TABLET PO (16:49)
[2019-03-30] MEDS: LOSARTAN 50 MG TABLET 100 MG PO (16:50)
[2019-03-30] MEDS: DONEPEZIL 5 MG TABLET PO (21:33)
[2019-03-31] VITALS (11 sets, daily range): BP systolic 136–155; BP diastolic 67–74; PULSE 77–92; RESP 16–22; TEMP 36.3–37.1; O2SAT 92–96
[2019-03-31] MEDS: ALBUTEROL/IPRATROPIUM 3 ML AMPUL INH ×4 (02:57→22:33)
--- NOTE | 2019-03-31 03:31 | PC.NURSE ---
Addendum entered by Monisha Ross R.N. 03/31/19 06:53: 0500 Patient placed on oxygen at 1L/min as no longer wanted CPAP as was having increased coughing; medicated with Tessalon. Sat now at 92%. Original Note: Patient is mostly oriented; does not know day of month/week or remember why she is here. Breath sounds tighter tonight with expiratory wheezes throughout. Has been on home CPAP with sat of 93% although does desat to 90% with cough. HRR. BP remaining elevated at 158/74. Denies nausea. BT present and abdomen is soft. Incontinent of B&B. Denies pain. Fall risk score is high and bed alarm is activated. Wearing bilateral calf SCD's. Is able to turn self. Gait not assessed tonight as has not been out of bed but has been needing walker and 1 assist.
[2019-03-31] MEDS: CEFTRIAXONE 1 GM/50 ML FROZ.PIGGY IV ×2 (04:45→17:44)
[2019-03-31] MEDS: SODIUM CHLORIDE 0.9% FLUSH 10 ML IV ×5 (04:45→21:57)
[2019-03-31] MEDS: BENZONATATE 100 MG CAPSULE PO ×2 (04:52→21:57)
[2019-03-31 06:26] LABS: Add Manual Diff / Slide Review NO; Basophils Absolute Auto 0 /uL (0-100); Basophils Percent Auto 0.1 % (0-2); Eosinophils Absolute Auto 0 /uL (0-450); Hematocrit 36.6 % (36-46); Hemoglobin 11.9 g/dL (12.0-16.0); Lymphocytes Absolute Auto 700 /uL (1100-4500); Lymphocytes Percent Auto 4.3 % (25-40); Mean Corpuscular HGB Conc 32.5 % (30-36); Monocytes Absolute Auto 500 /uL (0-900); Monocytes Percent Auto 3.3 % (3-14); Neutrophils Absolute Auto 14500 /uL (1500-7000); Neutrophils Percent Auto 92.3 % (50-75); Platelet Count 373 X10^3/uL (150-400); Red Blood Cell Count 4.12 X10^6/uL (4.0-5.2); Red Cell Distribution Width 14.3 % (11.6-14.8); White Blood Cell Count 15.7 X10^3/uL (4.5-11.0)
[2019-03-31 06:32] LABS: Blood Urea Nitrogen 29 mg/dL (7-17); Calcium 10.9 mg/dL (8.4-10.2); Carbon Dioxide 26 mmol/L (22-32); Chloride 98 mmol/L (98-107); Estimated Glomerular Filt Rate 53.2 mL/min (>60); Glucose 341 mg/dL (80-110); HEMOLYSIS < 15 (0-50); Potassium 4.7 mmol/L (3.4-5.1); Sodium 133 mmol/L (137-145)
[2019-03-31] MEDS: INSULIN GLARGINE 100 UNIT/ML 3ML PEN 55 UNIT SUBCUT (08:43)
[2019-03-31] MEDS: glyBURIDE 5 MG TABLET PO ×2 (08:43→17:35)
[2019-03-31] MEDS: METFORMIN HCL 500 MG TABLET 1000 MG PO ×2 (08:45→17:36)
[2019-03-31] MEDS: ENOXAPARIN 40 MG/0.4 ML SYRINGE SUBCUT (08:45)
[2019-03-31] MEDS: guaiFENesin ER 600 MG TAB PO ×2 (08:45→21:57)
[2019-03-31] MEDS: LEVOTHYROXINE 50 MCG TABLET PO (08:46)
[2019-03-31] MEDS: FUROSEMIDE 20 MG TABLET PO (08:46)
[2019-03-31] MEDS: ESTRADIOL 1 MG TABLET PO (08:49)
[2019-03-31] MEDS: methylPREDNISolone 125 MG/2 ML VIAL 60 MG IV ×2 (08:51→21:57)
--- NOTE | 2019-03-31 10:07 | PM.PN.1 ---
Subjective Subjective Date Patient Seen: 03/31/19 Time Patient Seen: 08:00 Interval history: This morning the pt reports that her cough is minimally improved. She does feel less SOB than previously. She denies any abdominal pain or chest pain. She continues to be pleasantly confused, but as per her daughters this has cleared a little more as well. Exam Vital Signs (past 8 hours): - 03/31/19 02:28 03/31/19 03:31 03/31/19 06:53 Temperature 97.3 F L Pulse Rate 84 92 H Respiratory Rate 16 20 Blood Pressure 151/72 H Pulse Oximetry 93 93 92 03/31/19 08:00 Temperature 98.8 F Pulse Rate 88 Respiratory Rate 22 Blood Pressure 151/71 H Pulse Oximetry 95 Oxygen Delivery Method Nasal Cannula Oxygen Flow Rate 2 Narrative Exam Narrative: Gen: NAD, sitting comfortably in chair, appears well, speaking in complete sentences, frequent strong cough CV: RRR, no murmurs Resp: air movement decreased from yesterday, significantly improved expiratory wheezing in all lung negro, no crackles Abd: soft, nontender, nondistended Ext: no edema Neuro: oriented to place and name, not to time or situation, no other gross deficits Objective Labs Result Diagrams: 03/31/19 06:06 03/31/19 06:06 Labs: Laboratory Results - last 24 hr 03/31/19 03/31/19 06:06 06:06 WBC 15.7 H RBC 4.12 Hgb 11.9 L Hct 36.6 MCV 89.0 MCH 29.0 MCHC 32.5 RDW 14.3 Plt Count 373 Neut % (Auto) 92.3 H Lymph % (Auto) 4.3 L [place] % (Auto) 3.3 Eos % (Auto) 0.0 L Baso % (Auto) 0.1 Neut # (Auto) 85485 H Lymph # (Auto) 700 L [place] # (Auto) 500 Eos # (Auto) 0 Baso # (Auto) 0 Sodium 133 L Potassium 4.7 Chloride 98 Carbon Dioxide 26 BUN 29 H Creatinine 1.00 Estimated GFR 53.2 L BUN/Creatinine Ratio 29.0 H Glucose 341 H Calcium 10.9 H Assessment & Plan Assessment & Plan narrative: Pt is a 83 year old woman with obstructive sleep apnea, depression, hypertension, type 2 diabetes on insulin, hypothyroidism, and history of CVA who presented with confusion, cough, incontinence. CXR and viral respiratory panel without abnormalities, but exam consistent with upper respiratory infection and reactive airway. U/A suggestive of UTI, started on antibiotics in the ED - culture now confirms. 1) UTI: Urine growing E coli and Aerococcus urinae - Continue Ceftriaxone 2) URI with RAD: Slow improvement. Required oxygen again last night. - Benzonatate and guaifenesin - Continue to IV Methylprednisolone 60mg BID, likely transition back to PO tomorrow - Duo-nebs q4hr scheduled 3) Stool incontinence: - Immodium PRN 4) DM Type 2: Last A1C 6.9 - Increase Glargine to 55 units daily - ACHS checks - Sliding scale for additional coverage - Continue Metformin, Glyburide 5) HTN: BP labile - Continue Losartan, Lovastatin 6) Hypothyroidism: - Continue Levothyroxine Code status: DNR FEN: Diabetic diet DVT prophylaxis: SCDs Dispo: Pending continued improvement in mental status, respiratory improvement. Quality VTE Deep Vein Thrombosis/Pulmonary Embolism Present on Admission: No
--- NOTE | 2019-03-31 10:13 | OT.IP.TRT ---
Current Diagnoses Unspecified asthma, uncomplicated (03/28/19) Occupational Therapy Treatment Note M2 OT-IP Current Condition Start: 03/30/19 11:22 Freq: Status: Active Protocol: Document 03/30/19 11:08 PJM (Rec: 03/30/19 11:50 PJM [id number]) Occupational Therapy Current Condition Current Condition Evaluation Date 03/30/19 Treatment Diagnosis decr'd cognition, activity tolerance, self car, mobility DX: UTI, Resp Inf. Diagnosis Onset Date 03/28/19 Post Operative Precautions Other Precautions STM deficits, fall risk M3 OT- IP Subjective and Pain Start: 03/30/19 11:22 Freq: Status: Active Protocol: Document 03/31/19 10:58 CCC (Rec: 03/31/19 11:09 CCC [id number]) OT- Subjective Occupational Therapy Visit Type Type Treatment Note Visit Start Time 10:13 Visit Stop Time 10:51 Total Visit Minutes 38 Occupational Therapy Visit Comments Patient Comments Pt agreeable to shower, nursing states okay for pt to shower on RA. Patient/Caregiver Goals To go home. OT Pain Assessment Pain When Pain Assessed At Rest Pain Present Pain Present Denied Pain M4 OT- IP ADL's Start: 03/30/19 11:22 Freq: Status: Active Protocol: Document 03/31/19 10:58 CCC (Rec: 03/31/19 11:09 CCC [id number]) OT ADL-Grooming General Evaluation Grooming Ability Standby Assistance Comments OT Grooming Comments standing at sink with FWW, vc to find items on the sink. OT ADL-Oral Care General Eval Oral Care Ability Independent OT ADL-Dressing General Eval Lower Body Dressing Ability Standby Assistance Areas Needing Assistance Underpants/Brief,Socks Comments OT Dressing Comments SBA while standing to ashwin brief over hips ans needing use of FWW or grab bar for balance. Able to sit to ashwin socks. OT ADL-Toileting General Evaluation Toileting Ability Standby Assistance Comments OT Toileting Comments vc for completeness. OT ADL-Bathing Bathing Type Bathing Type Shower General Evaluation Bathing Ability Minimal Assistance Areas Needing Assistance Wash/Dry Back Devices Bathing Equipment Hand Held Shower Sprayer, Shower Chair with Arms,Grab Bars Comments OT Bathing Comments VC to take breaks, CGA while standing for pericare needs. O2 on RA from 86-96% on RA mainly running around 91% and pt not complaining of any shortness of breath. M5 OT- IP IADL's Start: 03/30/19 11:22 Freq: Status: Active Protocol: Document 03/30/19 11:08 PJM (Rec: 03/30/19 11:50 PJM [id number]) OT-Instrumental Activities of Daily Living Deficits IADL Deficits Identified Deficits Home Safety Awareness Awareness of Need for Assistance at Home Good Awareness Medication Management Medication Management Caregiver Provides Supervision Medication Management Comments pt has meds bubble packed and daughter supervises Money Management Money Management Caregiver Provides Assistance Money Management Comments pt was making errors in bill paying, so daughter now manages finances Meal Preparation Meal Preparation Caregiver Provides Assist Meal Preparation Comments daughter does all meal prep Prefitter Doors Prefitter Doors Caregiver Provides Assist Prefitter Doors Comments daughters do all loom overhauler Driving Driving Caregiver Provides Assist Driving Comments pt no longer drives, family provides transport M6 OT- IP Functional Cognition Start: 03/30/19 11:22 Freq: Status: Active Protocol: Document 03/31/19 10:58 [facility] (Rec: 03/31/19 11:09 [facility] [id number]) Cognitive Factors Limiting Selfcare Function Cognitive Ability Level of Alertness Alert Patient Orientation Name,Age,Birthday,Month,Date, Year,Day of Week,Place Attention Span Ability Capable of Focused Attention, Capable of Sustained Attention Ability to Follow Commands Able to Follow One Step Commands Memory Description Short Term Impaired Safety Awareness Underestimates Need for Assistance Problem Solving Ability Needs Assist to Identify Solutions Executive Function Ability Unable to Remember Details Cognitive Comments Cognitive Assessment Comments VC to keep FWW in front of her at all times. vc to find the toothbrush to the left of her on the counter. VC to sit while trying to take off her socks. Pt initially trying to stand and take her socks off. M7 OT- IP Mobility and Balance Start: 03/30/19 11:22 Freq: Status: Active Protocol: Document 03/31/19 10:58 [facility] (Rec: 03/31/19 11:09 [facility] [id number]) OT- Bed Mobility Assessment Supine to Sit Supine to Sit Assist Standby Assistance OT-Transfer Assessment Sit to and From Stand Sit to and from Stand Standby Assistance,Contact Guard Assistance Transfers Transfer Ability Standby Assistance,Contact Guard Assistance,Use of Upper Extremities Technique Transfer Destination Chair,Shower Stall,Toilet Devices Transfer Assistive Devices Front Wheeled Walker Comments Mobility Comments DARRELL for balanace while stepping over threshold of the shower. CGA to DARRELL to help stand from lower surfaces. SBA if just standing with FWW. OT- Balance Assessment Sitting Balance and Reactions Static Sitting Balance Ability Normal Dynamic Sitting Balance Ability Good Standing Balance and Reactions Static Standing Balance Ability Good Dynamic Standing Balance Ability Fair M8 OT- IP Objective Assessments Start: 03/30/19 11:22 Freq: Status: Active Protocol: Document 03/30/19 11:08 PJM (Rec: 03/30/19 11:50 PJM [id number]) OT Gross Range of Motion Upper Extremity Range of Motion Assessment Within Functional Limits OT Strength Upper Extremity Strength Assessment Within Functional Limits Hand Orthodontic Laboratory Technician Strength Hand Dominance Right OT- Coordination Assessment Comments Coordination Comments BUE WFL for self care OT-Muscle Tone Assessment Muscle Tone WNL Yes OT Sensation Assessment Comments Summary Comments BUE WNL Edema Edema Present Edema Comments Min edema noted in BLE's. Pt wears BLE compression hose at home per daughter. M9 OT- IP Assessment and Plan Start: 03/30/19 11:22 Freq: Status: Active Protocol: Document 03/31/19 10:58 CCC (Rec: 03/31/19 11:09 CCC [email or web address]) OT Summary Assessment and Plan Potential Rehabilitation Potential Good Analytic Complexity at Evaluation Low Summary OT Impairments Balance,Functional Cognition, Functional Mobility,Grooming, Dressing,Toileting,Bathing, Toilet Transfers,Shower Transfers Progress Towards Goals Progressing Toward Goals Assessment Summary Pt able to tolerate showering today with O2 on RA and mainly around 91%. Pt still needing occasional CGA for balance and will benefit from 24/7 assist at home due to decreased balance and safety awareness at this time. Goals Grooming Goal Independent Dressing Goal Independent Toileting Goal Standby Assistance Bathing Goal Standby Assistance,Grab Bars, Hand Held Shower Sprayer Toilet Transfer Goal Standby Assistance Shower Transfer Goal Standby Assistance,Tub/Shower Combination,Tub Transfer Bench Patient/Caregiver Education Goal Demonstrate Energy Conservation and Pacing, Caregiver Independent Assisting Patient Days to Meet Goals 2 Frequency of Treatment Frequency Of Treatment Once a Day Treatment Plan OT Treatment Plan ADL Training,Functional Cognition Training,Functional Mobility,Patient/Family Education,Discharge Planning Other Treatment Recommendations and Next GO over energy conservation Treatment Focus strategies Discharge Recommendations OT Discharge Recommendations Home with 24/7 Assist,Home Health Home Equipment Needs possible fww
--- NOTE | 2019-03-31 11:32 | PT.IPTN ---
Current Diagnoses Unspecified asthma, uncomplicated (03/28/19) Physical Therapy Treatment Note M2 PT-IP Current Condition Start: 03/29/19 11:05 Freq: NEEDED Status: Active Protocol: Document 03/29/19 11:34 MB (Rec: 03/29/19 12:17 MB [id number]) Physical Therapy Current Condition Current Condition Evaluation Date 03/29/19 Treatment Diagnosis Cough, weakness, confusion in setting of bronchitis and hypoxemia Precautions Other Precautions Fall risk, SEAY and sats in the high 90s on 1L M3 PT-IP Subjective Start: 03/29/19 11:05 Freq: NEEDED Status: Active Protocol: Document 03/31/19 11:32 AB (Rec: 03/31/19 13:31 AB [id number]) Subjective Physical Therapy Visit Type Type Treatment Note Visit Start Time 11:32 Visit Stop Time 11:52 Total Visit Minutes 20 Number of CHEMICAL RESEARCH ENGINEER Visits 0 Physical Therapy Visit Comments Patient Comments pt agreeable to do PT Therapy Pain Assessment Pain Present Pain Present Denied Pain M4 PT-IP Mobility and Gait Start: 03/29/19 11:05 Freq: NEEDED Status: Active Protocol: Document 03/31/19 11:32 AB (Rec: 03/31/19 13:31 AB [id number]) PT-Bed Mobility Assessment Supine to Sit Supine to Sit Standby Assistance PT-Transfer Assessment Sit to and From Stand Sit to and from Stand Contact Guard Assistance Equipment Transfer Assistive Device Gait Belt,Front Wheeled Walker Orthotic/Prosthetic Devices or Brace: No Transfers Transfer Destination Chair Transfer Technique ambulated using FWW Transfer Ability Level of Assist Contact Guard Assistance, Minimal Assistance Comments Mobility Comments [id number] supine to sit SBA and pt was able to sit on EOB SBA. completed sit to stand CGA. ambulated in room using FWW min A and cues. O2 sat at room air prior to mobility 93 %. Gait Assessment Gait Gait Assistance Required: Minimum Assistance,1 Person Assist Distance (Feet) 60 Able to Maintain Weight Bearing Status Yes During Gait Assistive Devices Assistive Device Gait Belt,Front Wheeled Walker ,4 Wheeled Walker Orthotic/Prosthetic Devices or Brace: No Gait Deviations General Gait Pattern Antalgic,Decreased Stride Length,Decreased Feet Clearance Factors Limiting Gait Function Factors Limiting Gait Function Decreased Activity Tolerance, Decreased Strength,Poor Balance,Poor Safety Awareness, Respiratory Distress Comments Gait Comments pt ambulated in room ~ 30 ft using FWW CGA to min A. Assessed mobility using 4WW and completed ~ 60 ft min to min A and cues. pt presents with unsteady gait and unable to ambulate a straight path. O2 sat initially decreased to ~ 85% but recovered to 91-93% and afterwards stayed stable throughout ambulation. M5 PT-IP Objective Assessments Start: 03/29/19 11:05 Freq: NEEDED Status: Active Protocol: Document 03/29/19 11:34 MB (Rec: 03/29/19 12:17 MB [id number]) Orientation Orientation/Cognition Level of Alertness Confusional State Orientation Name,Birthday,Month,Date,Year Safety Awareness Decreased Safety Awareness Gross Range of Motion Upper Extremity ROM Assessment Within Functional Limits Lower Extremity ROM Assessment Within Functional Limits Strength Upper Extremity Strength Assessment Within Functional Limits Lower Extremity Strength Assessment Within Functional Limits Sensation Assessment Comments Sensation Comments Pt cannot follow commands M6 PT-IP Treatment Start: 03/29/19 11:05 Freq: NEEDED Status: Active Protocol: Document 03/31/19 11:32 AB (Rec: 03/31/19 13:31 AB [id number]) Physical Therapy Treatment Education Education Provided Safety M7 PT-IP Assessment and Plan Start: 03/29/19 11:05 Freq: NEEDED Status: Active Protocol: Document 03/31/19 11:32 AB (Rec: 03/31/19 13:31 AB [id number]) PT Summary Assessment and Plan Potential Rehabilitation Potential Good Summary Impairments Pain,ROM,Strength,Balance, Coordination,Sensation,Tone, Cognition,Bed Mobility, Transfers,Gait,Activity Tolerance Progress Towards Goals Slow Progress due to Activity Tolerance Assessment Summary pt requires min A with ambulation using FWW/4WW. pt plans to go home and stated that family will be able to assist her. pt may benefit from outpt PT/cardiopulmo rehab to improve mobility and activity tolerance. Goals Bed Mobility Goal Independent Transfer Goal Independent,Four Wheeled Walker Gait Goal Independent,Four Wheel Walker Gait Distance 150 Other Goals up/down 3 steps with bilateral rails SBA Days to Meet Goals 5 Frequency of Treatment Frequency Of Treatment Once a Day Treatment Plan Physical Therapy Treatment Plan Bed Mobility Training,Transfer Training,Gait Training, Therapeutic Exercise,Balance Retraining Other Recommendations and Next Treatment ambulation using 4WW, stair Focus climbing Recommendations To Nursing Amount of Assist Needed 1 Person Assist Discharge Recommendations PT Discharge Recommendations Home with 19/10 Assist, Outpatient PT
[2019-03-31] MEDS: INSULIN ASPART 100 UNIT/ML INSULN PEN SUBCUT (11:39)
--- NOTE | 2019-03-31 12:36 | PM.CHAP ---
Visit on March 29. Family present and attitude of all quite pleasant. Still some confusion about what has been happening but family members seem to be quite aware of her changes and what her physical needs have been. Noted request for inspector and hand packager in notes and verified that they had a family batt machine operator who had not been contacted yet. They said they would be contacting him.
--- NOTE | 2019-03-31 14:17 | PC.NURSE ---
Day shift: Pt tucked into bed for a nap. Pt took a sip of water and began to cough. SpO2 was 77% and placed on 2L NC. Pt sat up in bed and did also cough up some sputum. Pt doing better now. Also HR went into the low 120's. Will remoind Pt to not drink or eat when lying down in bed. Will continue to monitor. Call light in reach. Bed alarm is on as well as SCD's. SpO2 is now 92% on 2L NC. Pt is talking with care mangament person and no longer has any s/s of distress.
--- NOTE | 2019-03-31 14:24 | PC.NURSE ---
Day shift: RT aware of respiratory distress.
--- NOTE | 2019-03-31 15:37 | CM.DPC ---
visited with patient. Plan to discharge home to care of family remains intact. Denies offer of HH.
--- NOTE | 2019-03-31 17:34 | DI.CT.S_ITS ---
PROCEDURE: CT HEAD/BRAIN WO CON INDICATIONS: right side neglect, concern CVA. TECHNIQUE: Noncontrast 4.5 mm thick angled axial sections acquired from the foramen magnum to the vertex, with coronal and sagittal reformats. For radiation dose reduction, the following was used: automated exposure control, adjustment of mA and/or kV according to patient size. COMPARISON: [facility], CT, CT HEAD/BRAIN WO CON, 12/23/2017, 15:18. FINDINGS: Image quality: Excellent. CSF spaces: Basal cisterns are patent. No extra-axial fluid collections. The ventricles are symmetric in size and shape. Brain: No intracranial bleeds or masses. There is cerebral volume loss for age, with resultant ventricular and sulcal prominence. There are periventricular and deep white matter chronic small vessel ischemic changes. There is intracranial internal carotid artery atherosclerosis. Skull and face: Calvarium and visualized facial bones appear intact, without suspicious lesions. Right parietal scalp swelling Sinuses: Visualized sinuses and mastoids are clear. IMPRESSION: Right parietal scalp swelling No acute intracranial process. Dictated by: Perez Trinidad M.D. on 03/31/2019 at 19:38 Approved by: Perez Trinidad M.D. on 03/31/2019 at 19:41
[2019-03-31] MEDS: LOSARTAN 50 MG TABLET 100 MG PO (17:35)
[2019-03-31] MEDS: LOVASTATIN 20 MG TABLET PO (17:36)
--- NOTE | 2019-03-31 17:39 | DI.MRI.S_ITS ---
PROCEDURE: MR HEAD/BRAIN WO CON INDICATIONS: right sided neglect and weakness, new atrial fibrillation TECHNIQUE: Non-contrast axial T1 spin echo, axial T2 fast spin echo, sagittal and axial FLAIR, coronal T2 fast spin echo, axial gradient echo, axial diffusion and ADC through the brain. COMPARISON: [facility], MR, MR HEAD/BRAIN WO CON, 06/11/2018, 9:57. FINDINGS: Image quality: Severely motion degraded examination. CSF spaces: Ventricles appear symmetric in size and shape. Basal cisterns are patent. No extra-axial fluid collections. Brain: No intracranial bleeds or mass effects. There is cerebral volume loss for age. There are periventricular and deep white matter chronic small vessel ischemic changes. Brainstem appears normal. Diffusion-weighted images show no acute ischemic insults. No chronic ischemic insults. Normal intravascular flow voids are present. There is long segment narrowing which is not well-seen due to motion artifact of the distal left M1 segment although appears patent on source images. Skull and face: Calvarial bone marrow is normal in signal. Orbits are normal. Sinuses: Sinuses and mastoids are clear. IMPRESSION: No evidence of acute ischemia. No focal stenosis or occlusion Diffuse small white matter changes, probably represent chronic microvascular ischemic disease, versus statistically less likely demyelination or other infectious, inflammatory, neurodegenerative etiology, technically nonspecific. Suboptimal evaluation due to severely motion degraded exam. Dictated by: Perez Trinidad M.D. on 03/31/2019 at 20:55 Approved by: Perez Trinidad M.D. on 03/31/2019 at 21:00
[2019-03-31] MEDS: LORazepam 2 MG/ML INJ 0.5 MG IV (18:28)
[2019-03-31] MEDS: DONEPEZIL 5 MG TABLET PO (21:57)
[2019-04-01] VITALS (13 sets, daily range): BP systolic 130–175; BP diastolic 66–78; PULSE 75–101; RESP 15–24; TEMP 36.2–36.8; O2SAT 92–97
[2019-04-01] MEDS: CEFTRIAXONE 1 GM/50 ML FROZ.PIGGY IV ×2 (05:46→16:52)
[2019-04-01 06:31] LABS: Add Manual Diff / Slide Review NO; Basophils Absolute Auto 0 /uL (0-100); Basophils Percent Auto 0.2 % (0-2); Eosinophils Absolute Auto 0 /uL (0-450); Hematocrit 37.9 % (36-46); Hemoglobin 12.4 g/dL (12.0-16.0); Lymphocytes Absolute Auto 800 /uL (1100-4500); Lymphocytes Percent Auto 4.1 % (25-40); Mean Corpuscular HGB Conc 32.7 % (30-36); Mean Corpuscular Volume 88.8 fL (80-100); Monocytes Absolute Auto 800 /uL (0-900); Monocytes Percent Auto 3.9 % (3-14); Neutrophils Absolute Auto 18900 /uL (1500-7000); Neutrophils Percent Auto 91.8 % (50-75); Platelet Count 212 X10^3/uL (150-400); Red Blood Cell Count 4.27 X10^6/uL (4.0-5.2); Red Cell Distribution Width 14.2 % (11.6-14.8); White Blood Cell Count 20.6 X10^3/uL (4.5-11.0)
[2019-04-01 06:35] LABS: Blood Urea Nitrogen 35 mg/dL (7-17); Calcium 11.1 mg/dL (8.4-10.2); Carbon Dioxide 29 mmol/L (22-32); Chloride 103 mmol/L (98-107); Estimated Glomerular Filt Rate 53.2 mL/min (>60); Glucose 205 mg/dL (80-110); HEMOLYSIS < 15 (0-50); Sodium 138 mmol/L (137-145)
[2019-04-01 06:38] LABS: Potassium 5.3 mmol/L (3.4-5.1)
[2019-04-01] MEDS: INSULIN ASPART 100 UNIT/ML INSULN PEN SUBCUT ×3 (08:46→16:54)
[2019-04-01] MEDS: INSULIN GLARGINE 100 UNIT/ML 3ML PEN 55 UNIT SUBCUT (08:46)
[2019-04-01] MEDS: glyBURIDE 5 MG TABLET PO ×2 (08:47→16:53)
[2019-04-01] MEDS: ESTRADIOL 1 MG TABLET PO (08:47)
[2019-04-01] MEDS: ENOXAPARIN 40 MG/0.4 ML SYRINGE SUBCUT (08:51)
[2019-04-01] MEDS: guaiFENesin ER 600 MG TAB PO ×2 (08:51→20:28)
[2019-04-01] MEDS: SODIUM CHLORIDE 0.9% FLUSH 10 ML IV ×3 (08:51→21:16)
[2019-04-01] MEDS: LEVOTHYROXINE 50 MCG TABLET PO (08:51)
[2019-04-01] MEDS: FUROSEMIDE 20 MG TABLET PO (08:51)
[2019-04-01] MEDS: BENZONATATE 100 MG CAPSULE PO (08:51)
[2019-04-01] MEDS: METFORMIN HCL 500 MG TABLET 1000 MG PO ×2 (08:51→16:52)
[2019-04-01] MEDS: methylPREDNISolone 125 MG/2 ML VIAL 60 MG IV ×2 (09:04→21:16)
[2019-04-01] MEDS: ALBUTEROL/IPRATROPIUM 3 ML AMPUL INH ×3 (10:37→19:58)
--- NOTE | 2019-04-01 11:17 | OT.IP.TRT ---
Current Diagnoses Unspecified asthma, uncomplicated (03/28/19) Occupational Therapy Treatment Note M2 OT-IP Current Condition Start: 03/30/19 11:22 Freq: Status: Active Protocol: Document 03/30/19 11:08 PJM (Rec: 03/30/19 11:50 PJM [id number]) Occupational Therapy Current Condition Current Condition Evaluation Date 03/30/19 Treatment Diagnosis decr'd cognition, activity tolerance, self car, mobility DX: UTI, Resp Inf. Diagnosis Onset Date 03/28/19 Post Operative Precautions Other Precautions STM deficits, fall risk M3 OT- IP Subjective and Pain Start: 03/30/19 11:22 Freq: Status: Active Protocol: Document 04/01/19 11:43 [facility] (Rec: 04/01/19 11:57 [facility] [id number]) OT- Subjective Occupational Therapy Visit Type Type Treatment Note Visit Start Time 11:17 Visit Stop Time 11:37 Total Visit Minutes 20 Occupational Therapy Visit Comments Patient Comments Pt wanting to use the toilet. Patient/Caregiver Goals Pt wanting to go home and realizes that she will need therapy but not sure if she wants home health versus outpt PT. Pt would like her family to decide for her. OT Pain Assessment Pain When Pain Assessed At Rest Pain Present Pain Present Denied Pain M4 OT- IP ADL's Start: 03/30/19 11:22 Freq: Status: Active Protocol: Document 04/01/19 11:43 [facility] (Rec: 04/01/19 11:57 [facility] [id number]) OT ADL-Grooming General Evaluation Grooming Ability Standby Assistance Comments OT Grooming Comments standing at sink with FWW, vc to find items on the sink. OT ADL-Oral Care General Eval Oral Care Ability Independent OT ADL-Dressing General Eval Lower Body Dressing Ability Standby Assistance Areas Needing Assistance Underpants/Brief,Socks Comments OT Dressing Comments Able to ashwin/doff brief while sitting on the toilet. OT ADL-Toileting General Evaluation Toileting Ability Standby Assistance Comments OT Toileting Comments vc for completeness. M6 OT- IP Functional Cognition Start: 03/30/19 11:22 Freq: Status: Active Protocol: Document 04/01/19 11:43 [facility] (Rec: 04/01/19 11:57 [facility] [id number]) Cognitive Factors Limiting Selfcare Function Cognitive Ability Level of Alertness Alert Patient Orientation Name,Age,Birthday,Month,Date, Year,Day of Week,Place Attention Span Ability Capable of Focused Attention, Capable of Sustained Attention Ability to Follow Commands Able to Follow One Step Commands Memory Description Short Term Impaired Safety Awareness Underestimates Need for Assistance Problem Solving Ability Unable to Identify Errors, Needs Assist to Identify Solutions Executive Function Ability Unable to Organize Plans, Unable to Remember Details Cognitive Comments Cognitive Assessment Comments Pt needing cues to think through task of hygiene and changing out brief. Pt easily distracted and needing cues to sequence through toileting task. M7 OT- IP Mobility and Balance Start: 03/30/19 11:22 Freq: Status: Active Protocol: Document 04/01/19 11:43 [facility] (Rec: 04/01/19 11:57 [facility] [id number]) OT- Bed Mobility Assessment Supine to Sit Supine to Sit Assist Standby Assistance OT-Transfer Assessment Sit to and From Stand Sit to and from Stand Standby Assistance,Contact Guard Assistance Transfers Transfer Ability Contact Guard Assistance Technique Transfer Destination Bed,Chair,Toilet Devices Transfer Assistive Devices Front Wheeled Walker Comments Mobility Comments Pt unsteady on her feet and having a tendency to keep FWW to far away and needing cues to keep it closer. Pt while walking got distracted and turned her head and had lose of balance and needed MAX A to prevent from falling over to the left. Nursing notified. Pt now on 6L of O2 and was at 89 -92% when up using the toilet . OT- Balance Assessment Sitting Balance and Reactions Static Sitting Balance Ability Good Dynamic Sitting Balance Ability Fair Standing Balance and Reactions Static Standing Balance Ability Fair Dynamic Standing Balance Ability Poor M8 OT- IP Objective Assessments Start: 03/30/19 11:22 Freq: Status: Active Protocol: Document 03/30/19 11:08 PJM (Rec: 03/30/19 11:50 PJM [id number]) OT Gross Range of Motion Upper Extremity Range of Motion Assessment Within Functional Limits OT Strength Upper Extremity Strength Assessment Within Functional Limits Hand Rooming House Keeper Strength Hand Dominance Right OT- Coordination Assessment Comments Coordination Comments BUE WFL for self care OT-Muscle Tone Assessment Muscle Tone WNL Yes OT Sensation Assessment Comments Summary Comments BUE WNL Edema Edema Present Edema Comments Min edema noted in BLE's. Pt wears BLE compression hose at home per daughter. M9 OT- IP Assessment and Plan Start: 03/30/19 11:22 Freq: Status: Active Protocol: Document 04/01/19 11:43 [facility] (Rec: 04/01/19 11:57 [facility] [id number]) OT Summary Assessment and Plan Potential Rehabilitation Potential Good Analytic Complexity at Evaluation Low Summary OT Impairments Balance,Functional Cognition, Functional Mobility,Grooming, Dressing,Toileting,Bathing, Toilet Transfers,Shower Transfers Progress Towards Goals Slow Progress due to Activity Tolerance,Slow Progress due to Cognition Assessment Summary Pt today noted decreased balance today and more confused. Pt would benefit from skilled rehab but refusing to go and therefore would be beneficial to have home health and 24/7 assist. Goals Grooming Goal Standby Assistance Dressing Goal Standby Assistance Toileting Goal Standby Assistance Bathing Goal Standby Assistance,Grab Bars, Hand Held Shower Sprayer Toilet Transfer Goal Standby Assistance Shower Transfer Goal Standby Assistance,Tub/Shower Combination,Tub Transfer Bench Patient/Caregiver Education Goal Demonstrate Energy Conservation and Pacing, Caregiver Independent Assisting Patient Days to Meet Goals 4 Frequency of Treatment Frequency Of Treatment Once a Day Treatment Plan OT Treatment Plan ADL Training,Functional Cognition Training,Functional Mobility,Patient/Family Education,Discharge Planning Other Treatment Recommendations and Next GO over energy conservation Treatment Focus strategies Discharge Recommendations OT Discharge Recommendations Home with 24/7 Assist,Home Health Home Equipment Needs possible fww
--- NOTE | 2019-04-01 13:07 | P.PN_ITS ---
Subjective Subjective Date Patient Seen: 04/01/19 Time Patient Seen: 09:30 Interval history: The pt reports that she is feeling somewhat improved. She continues to have a frequent cough. She feels a little SOB, but not as much as previously. As per her daughters, her confusion level is now nearly back to baseline. There were no concerns from nursing overnight. She did require oxygen last night. Exam Vital Signs (past 8 hours): - 04/01/19 07:40 04/01/19 08:13 04/01/19 11:55 Temperature 97.5 F L Pulse Rate 75 Respiratory Rate 20 Blood Pressure 144/77 H Pulse Oximetry 96 95 95 Oxygen Delivery Method Nasal Cannula Oxygen Flow Rate 1 Narrative Exam Narrative: Gen: NAD, sitting comfortably in bed, appears well, speaking in complete sentences, frequent wet sounding cough CV: RRR, no murmurs Resp: air movement improving slightly from yesterday, expiratory wheezing in all lung negro stable from yesterday, no crackles Abd: soft, nontender, nondistended Ext: no edema Neuro: oriented to place and name, not to time or situation, no other gross deficits Objective Labs Result Diagrams: 04/01/19 06:16 04/01/19 06:16 Labs: Laboratory Results - last 24 hr 04/01/19 04/01/19 06:16 06:16 WBC 20.6 H RBC 4.27 Hgb 12.4 Hct 37.9 MCV 88.8 MCH 29.0 MCHC 32.7 RDW 14.2 Plt Count 212 Neut % (Auto) 91.8 H Lymph % (Auto) 4.1 L Garland % (Auto) 3.9 Eos % (Auto) 0.0 L Baso % (Auto) 0.2 Neut # (Auto) 92004 H Lymph # (Auto) 800 L Garland # (Auto) 800 Eos # (Auto) 0 Baso # (Auto) 0 Sodium 138 Potassium 5.3 H Chloride 103 Carbon Dioxide 29 BUN 35 H Creatinine 1.00 Estimated GFR 53.2 L BUN/Creatinine Ratio 35.0 H Glucose 205 H D Calcium 11.1 H Assessment & Plan Assessment & Plan narrative: Pt is a 83 year old woman with obstructive sleep apnea, depression, hypertension, type 2 diabetes on insulin, hypothyroidism, and history of CVA who presented with confusion, cough, incontinence. CXR and viral respiratory panel without abnormalities, but exam consistent with upper respiratory infection and reactive airway. U/A suggestive of UTI, started on antibiotics in the ED - culture now confirms. 1) UTI: Urine growing E coli and Aerococcus urinae. WBC count likely rising due to steroids. No other indication of worsening infection. - Continue Ceftriaxone. Currently day 4. 2) URI with RAD: Slow improvement. Required oxygen again last night. - Benzonatate and guaifenesin - Continue to IV Methylprednisolone 60mg BID - Duo-nebs q4hr scheduled - Flovent BID 3) Stool incontinence: - Immodium PRN 4) DM Type 2: Last A1C 6.9. Sugars with improved control on higher dosing insulin - Glargine to 55 units daily - ACHS checks - Sliding scale for additional coverage - Continue Metformin, Glyburide 5) HTN: BP labile - Continue Losartan, Lovastatin 6) Hypothyroidism: - Continue Levothyroxine Code status: DNR FEN: Diabetic diet DVT prophylaxis: SCDs Dispo: Pending continued improvement in respiratory status. Hopeful for d/c tomorrow. Quality VTE Deep Vein Thrombosis/Pulmonary Embolism Present on Admission: No
--- NOTE | 2019-04-01 14:55 | PT.IPTN ---
Current Diagnoses Unspecified asthma, uncomplicated (03/28/19) Physical Therapy Treatment Note M2 PT-IP Current Condition Start: 03/29/19 11:05 Freq: NEEDED Status: Active Protocol: Document 03/29/19 11:34 MB (Rec: 03/29/19 12:17 MB [id number]) Physical Therapy Current Condition Current Condition Evaluation Date 03/29/19 Treatment Diagnosis Cough, weakness, confusion in setting of bronchitis and hypoxemia Precautions Other Precautions Fall risk, SEAY and sats in the high 90s on 1L M3 PT-IP Subjective Start: 03/29/19 11:05 Freq: NEEDED Status: Active Protocol: Document 04/01/19 12:50 LJ (Rec: 04/01/19 14:55 LJ [id number]) Subjective Physical Therapy Visit Type Type Treatment Note Visit Start Time 12:50 Visit Stop Time 13:19 Total Visit Minutes 29 Physical Therapy Visit Comments Patient Comments pt agreeable to do PT Therapy Pain Assessment Pain Present Pain Present Denied Pain M4 PT-IP Mobility and Gait Start: 03/29/19 11:05 Freq: NEEDED Status: Active Protocol: Document 04/01/19 12:50 LJ (Rec: 04/01/19 14:55 LJ [id number]) PT-Transfer Assessment Sit to and From Stand Sit to and from Stand Contact Guard Assistance Equipment Transfer Assistive Device Gait Belt,Front Wheeled Walker Orthotic/Prosthetic Devices or Brace: No Transfers Transfer Destination Chair Transfer Technique ambulated using FWW Transfer Ability Level of Assist Contact Guard Assistance,Use of Upper Extremities Comments Mobility Comments Pt in chair. Completed sit<> stand with CGA and cues to scoot to edge of chair. O2 remained in mid 90s on 2L during activity Gait Assessment Gait Gait Assistance Required: Contact Guard Assist Distance (Feet) 100 Able to Maintain Weight Bearing Status Yes During Gait Assistive Devices Assistive Device Gait Belt,Front Wheeled Walker Gait Deviations General Gait Pattern Antalgic,Decreased Stride Length,Decreased Feet Clearance Factors Limiting Gait Function Factors Limiting Gait Function Decreased Activity Tolerance, Decreased Strength,Poor Balance,Poor Safety Awareness, Respiratory Distress Comments Gait Comments Pt ambulated in room to toilet then out to hallway for ~100' . Sat in WC and was wheeled to stairs for trial. WC back to room then pt ambulated to chair from doorway CGA. During ambulation pt experienced i LOB when initially navigating around the bed to doorway. Pt was able to self correct. Stair Climbing Assessment Evaluation Level of Assist On Stairs Contact Guard Assistance Devices Stair Climbing Assistive Devices Left Railing,Right Railing Technique/Endurance Stair Climbing Direction Ascend and Descend Stair Climbing Technique Step Over Step Number of Steps Climbed 3 Stair Climbing Set # Repetitions (reps) 1 Comments Stair Climbing Comments Pt willing to trial stairs one more time. Pt demonstrated safety on stairs with CGA. Paused on top of stairs for breath recovery M5 PT-IP Objective Assessments Start: 03/29/19 11:05 Freq: NEEDED Status: Active Protocol: Document 03/29/19 11:34 MB (Rec: 03/29/19 12:17 MB [id number]) Orientation Orientation/Cognition Level of Alertness Confusional State Orientation Name,Birthday,Month,Date,Year Safety Awareness Decreased Safety Awareness Gross Range of Motion Upper Extremity ROM Assessment Within Functional Limits Lower Extremity ROM Assessment Within Functional Limits Strength Upper Extremity Strength Assessment Within Functional Limits Lower Extremity Strength Assessment Within Functional Limits Sensation Assessment Comments Sensation Comments Pt cannot follow commands M6 PT-IP Treatment Start: 03/29/19 11:05 Freq: NEEDED Status: Active Protocol: Document 03/31/19 11:32 AB (Rec: 03/31/19 13:31 AB [id number]) Physical Therapy Treatment Education Education Provided Safety M7 PT-IP Assessment and Plan Start: 03/29/19 11:05 Freq: NEEDED Status: Active Protocol: Document 04/01/19 12:50 LJ (Rec: 04/01/19 14:55 LJ [id number]) PT Summary Assessment and Plan Potential Rehabilitation Potential Good Status of Condition at Evaluation Evolving Summary Impairments Pain,ROM,Strength,Balance, Coordination,Sensation,Tone, Cognition,Bed Mobility, Transfers,Gait,Activity Tolerance Progress Towards Goals Slow Progress due to Activity Tolerance Assessment Summary pt requires min A with ambulation using FWW/4WW. pt plans to go home and stated that family will be able to assist her. pt may benefit from outpt PT/cardiopulmo rehab to improve mobility and activity tolerance. Goals Bed Mobility Goal Independent Transfer Goal Independent,Four Wheeled Walker Gait Goal Independent,Four Wheel Walker Gait Distance 150 Other Goals up/down 3 steps with bilateral rails SBA Days to Meet Goals 5 Frequency of Treatment Frequency Of Treatment Once a Day Treatment Plan Physical Therapy Treatment Plan Bed Mobility Training,Transfer Training,Gait Training, Therapeutic Exercise,Balance Retraining Other Recommendations and Next Treatment ambulation using 4WW, stair Focus climbing Recommendations To Nursing Amount of Assist Needed 1 Person Assist Discharge Recommendations PT Discharge Recommendations Home with 24/7 Assist, Outpatient PT Equipment Needed for Home Before 3-in-1 BSC needed when she Discharge discharges home
--- NOTE | 2019-04-01 15:11 | CM.DPC ---
DCP Cont: Per MD, pt continues to have oxygen needs and her lungs do not sound quite clear yet so pt likely will remain here tonjason and will place order for RT to assess for home oxygen to determine if she meets criteria for new home oxygen or if pt will improve and be on room air at d/c. SW requested MD place that order now in case pt ends up being stable for d/c this evening. confirmed that pt still declining HH and is agreeable to PT recommendation of home with 24/7 assist and outpt PT. Plan: SW to follow after RT assess for possible new home oxygen needs and d/c home with Dtr and outpt PT for this evening or Sun morning. ARIES Thakkar
[2019-04-01] MEDS: FLUTICASONE 220MCG HFA 120 PUFF INH ×2 (16:02→19:58)
[2019-04-01] MEDS: LOSARTAN 50 MG TABLET 100 MG PO (16:52)
[2019-04-01] MEDS: LOVASTATIN 20 MG TABLET PO (16:53)
[2019-04-01] MEDS: DONEPEZIL 5 MG TABLET PO (20:28)
[2019-04-02 00:25] VITALS: O2SAT 93
[2019-04-02 05:20] VITALS: BP 142/76; PULSE 89; RESP 18; TEMP 36.4; O2SAT 92
[2019-04-02] MEDS: LEVOTHYROXINE 50 MCG TABLET PO (05:36)
[2019-04-02] MEDS: CEFTRIAXONE 1 GM/50 ML FROZ.PIGGY IV ×2 (05:36→11:54)
[2019-04-02 07:53] VITALS: RESP 16
[2019-04-02] MEDS: ALBUTEROL/IPRATROPIUM 3 ML AMPUL INH ×2 (07:53→11:37)
[2019-04-02] MEDS: FLUTICASONE 220MCG HFA 120 PUFF INH (07:53)
[2019-04-02 08:00] VITALS: BP 169/71; PULSE 78; RESP 18; TEMP 36.5; O2SAT 93
[2019-04-02] MEDS: INSULIN ASPART 100 UNIT/ML INSULN PEN SUBCUT (08:21)
[2019-04-02] MEDS: ESTRADIOL 1 MG TABLET PO (08:22)
[2019-04-02] MEDS: guaiFENesin ER 600 MG TAB PO (08:22)
[2019-04-02] MEDS: glyBURIDE 5 MG TABLET PO (08:22)
[2019-04-02] MEDS: ENOXAPARIN 40 MG/0.4 ML SYRINGE SUBCUT (08:22)
[2019-04-02] MEDS: FUROSEMIDE 20 MG TABLET PO (08:22)
[2019-04-02] MEDS: METFORMIN HCL 500 MG TABLET 1000 MG PO (08:24)
[2019-04-02] MEDS: INSULIN GLARGINE 100 UNIT/ML 3ML PEN 55 UNIT SUBCUT (08:28)
[2019-04-02] MEDS: SODIUM CHLORIDE 0.9% FLUSH 10 ML IV (09:56)
[2019-04-02] MEDS: methylPREDNISolone 125 MG/2 ML VIAL 60 MG IV (09:56)
[2019-04-02] MEDS: SODIUM CHLORIDE 0.9% 250 ML 21 ML IV (11:57)
--- NOTE | 2019-04-02 11:59 | PM.DS.1 ---
History of Present Illness History of Present Illness Chief complaint: COUGH,SOILING SELF,WEAKNESS Narrative: Pt is a 83 year old woman with obstructive sleep apnea, depression, hypertension, type 2 diabetes on insulin, and history of CVA who presented with confusion. The majority of the history was provided by her daughters were present at the time of our encounter. They report that yesterday, the patient was not acting like her usual self. She enjoys playing video games on her computer, but was unable to get this started. She is trying to play games on her phone, which was not even turned on. This is what prompted them to bring her into the emergency room. They also report the for the past week the patient has had a progressively worsening cough. she was seen by Dr. barrera on 03/23 and diagnosed with a viral URI with recommendations for supportive care at home. She states that her cough is persistent, and can be productive of a clear to white frothy sputum. She does endorse having frequent wheezing and feeling very short of breath. She reports having mild chest pain, but believes this is just from her coughing and more muscular in nature. Her daughter is also report that for the last 3 days she has been incontinent of stool and increasingly incontinent of urine. Her stool is very loose to liquid. She has not had any bowel movement in the toilet. The patient denies any abdominal pain or dysuria. She denies any recent antibiotic use. No recent fevers or chills. Discharge Providers Provider Date of admission: 03/28/19 21:54 Discharge Date: 04/02/19 Primary care physician: Pierre Chung MD Consults: 03/29/19 00:29 Consult to Pastoral Services Routine Comment: requests sociology instructor visit 03/29/19 09:59 Consult to Physical Therapy Evaluate & Treat Comment: Physician Instructions: Evaluate and Treat 03/30/19 09:54 Consult to Occupational Therapy Evaluate & Treat Comment: Physician Instructions: Evaluate and treat Discharge provider: Terri Mckeon MD Summary Hospital Course Discharge Diagnosis: UTI Hypoxia due to URI with RAD DONOVAN DM Type 2 HTN Hospital Course: The pt was admitted due to confusion, found to have a urinary tract infection with urine growing E coli and Aerococcus. This was treated with Ceftriaxone for 5 days, with no plans for additional outpatient antibiotics. The pts mental status returned to baseline, as per her daughters. She also had a severe cough, requiring oxygen due to hypoxia. CXR was negative x2, and viral respiratory panel also returned negative. She was noted to have significant wheezing with decreased air movement, and was started on Duoneb breathing treatments in addition to Methylprednisolone. The pt very gradually improved, and was eventually weaned from oxygen prior to discharge. She was also started on Flovent the day prior to discharge, with significant improvement in her SOB with this medication. Due to the steroids, the pts blood sugars were elevated. Her insulin was increased to 55 units with good control. She was instructed to continue the higher dosing until she completes a steroid taper as an outpatient. The pt is to f/u with her PCP within 1 week of discharge to ensure her respiratory status remains stable, and ensure her steroid taper does not need to be prolonged. PFTs can be considered as an outpatient after recovery from her acute illness. Status at Discharge Cognitive/behavioral status at discharge: oriented Functional status at discharge: uses cane/walker Overall status at discharge: patient is progressing back to baseline Time Spent with Patient Time spent: Greater than 30 minutes Exam Vital Signs (past 8 hours): - 04/02/19 05:20 04/02/19 07:53 04/02/19 08:00 Temperature 97.5 F L 97.7 F Pulse Rate 89 78 Respiratory Rate 18 16 18 Blood Pressure 142/76 H 169/71 H Pulse Oximetry 92 93 Oxygen Delivery Method Room Air Oxygen Flow Rate 0 Narrative Exam Narrative: Gen: NAD, sitting comfortably in bed, appears well, speaking in complete sentences, coughing infrequently CV: RRR, no murmurs Resp: air movement improved from yesterday, significantly improved expiratory wheezing bilateral bases, upper negro clear, no crackles Abd: soft, nontender, nondistended Ext: no edema Neuro: oriented to place and name, not to time or situation, no other gross deficits Objective Labs Result Diagrams: 04/01/19 06:16 04/01/19 06:16 Discharge Plan Discharge Plan Patient Disposition: Home Discharge orders & Medications Prescriptions: New loperamide 2 mg Capsule 2 mg PO QID PRN (Reason: Diarrhea) Qty: 30 RF: 0 benzonatate 100 mg Capsule 100 mg PO TID PRN (Reason: Cough) Qty: 30 RF: 0 Flovent HFA 220 mcg/actuation Hfa Aerosol Inhaler 1 puff INH BID Qty: 1 RF: 0 Lantus Solostar U-100 Insulin 100 unit/mL (3 mL) Insulin Pen 55 unit subcut DAILY Qty: 3 RF: 0 guaifenesin [Mucus Relief ER] 600 mg Tablet Extended Release 12hr 600 mg PO BID Qty: 30 RF: 0 prednisone 10 mg tablet 40 mg PO DAILY Qty: 31 RF: 0 albuterol sulfate 90 mcg/actuation HFA aerosol inhaler 2 puff INHALATION QID PRN (Reason: shortness of breath or wheezing) Qty: 8.5 RF: 0 (DME) Space Chamber Plus Spacer See Rx Instructions .ROUTE .MEDSUPPLY Qty: 1 RF: 0 Continued (DME) Blood Glucose Test strip See Dose Instructions .ROUTE .MEDSUPPLY Qty: 100 RF: 3 lovastatin 20 mg tablet 20 mg PO QPM Qty: 90 RF: 3 estradiol 1 mg tablet 1 mg PO QAM Qty: 90 RF: 3 levothyroxine 50 mcg tablet 50 mcg PO DAILY Qty: 90 RF: 1 metformin 1,000 mg tablet 1,000 mg PO BIDCC Qty: 180 RF: 2 furosemide 20 mg tablet 20 mg PO QAM Qty: 90 RF: 3 losartan 100 mg tablet 100 mg PO QPM Qty: 90 RF: 2 (DME) miscellaneous medical supply Misc See Dose Instructions .Route .MEDSUPPLY Qty: 1 RF: 0 (DME) insulin syringe,safetyneedle [Assure ID Insulin Safety] 0.5 mL 29 gauge x 1/2 syringe See Dose Instructions .ROUTE .MEDSUPPLY Qty: 500 RF: 0 donepezil 5 mg tablet 5 mg PO BEDTIME RF: 0 glyburide 5 mg tablet 5 mg PO BID RF: 0 (DME) Resmed Airsense 10 CPAP Qty: 1 RF: 0 Discontinued Basaglar KwikPen U-100 Insulin 100 unit/mL (3 mL) insulin pen 40 unit SUBCUT DAILY RF: 0 Follow up/Referrals: Pierre Chung MD [Primary Care Provider] - Visit Report/Discharge Packet Instructions: DI for Heart Failure, DI for Urinary Tract Infection (UTI), DI for Viral Upper Respiratory Infection -- Adult Visit Report Forms: Patient Portal/API, Stroke Signs & Symptoms Discharge Data Primary Care Provider: Pierre Chung Discharges patient from system. Discharge Date/Time: 04/02/19 13:35 Quality VTE Deep Vein Thrombosis/Pulmonary Embolism Present on Admission: No
[2019-04-02 12:00] VITALS: BP 135/75; PULSE 105; RESP 18; TEMP 36.6; O2SAT 93
--- NOTE | 2019-04-02 13:34 | PC.NURSE ---
Discharge instructions and home care handouts reviewed with patient and her daughter, they state understanding and have no further questions or concerns. IV's dc;d intact. Prescriptions sent electronically. Patient's daughter states she will call tomorrow to Dr. Chung's office to schedule her follow up appointment for in one week. Patient escorted out with all belongings via wheelchair to be discharged to home with her family.
--- NOTE | 2019-04-02 13:52 | CM.DPNOTE ---
DCP continued: CM/RN met with patient by the bedside. Informed her that she was d/c today at 10am to [facility]. patient stated understanding. IMM signed and placed in green folder on Kangou's desk to be scanned tomorrow 04/03/19. Juliette Jones RN
== END 2019-04-02 13:35 | DRG 690 ==
LOC: ED 21:51 → AC 21:55
PROVIDERS: Admitting Provider Family Medicine; Emergency Provider Nurse Practitioner Family; PCP Family Medicine; Visit Provider Family Medicine
DX: N39.0 Urinary tract infection, site not specified (principal); J45.909 Unspecified asthma, uncomplicated; J06.9 Acute upper respiratory infection, unspecified; B96.20 Unspecified Escherichia coli [E. coli] as the cause of diseases classified elsewhere; R15.9 Full incontinence of feces; F32.9 Major depressive disorder, single episode, unspecified; G47.33 Obstructive sleep apnea (adult) (pediatric); I10 Essential (primary) hypertension; E11.9 Type 2 diabetes mellitus without complications; E03.9 Hypothyroidism, unspecified; I44.0 Atrioventricular block, first degree; R41.0 Disorientation, unspecified; Z66 Do not resuscitate; Z86.73 Personal history of transient ischemic attack (TIA), and cerebral infarction without residual deficits; Z79.4 Long term (current) use of insulin
CPT/HCPCS: 36415; 70450; 70551; 71045; 71046; 80048; 80053; 81001; 82550; 82962; 83036; 83605; 83880; 84145; 84484; 85025; 85610; 85730; 87040; 87077; 87086; 87186; 87493; 87633; 93005; 94640; 94760; 96361; 96365; 97116; 97161; 97165; 97530; 97535; 99232; 99233; 99238; 99284; J1650; J2060; J2930; J7613

== ENCOUNTER → 2019-04-10 14:19 | Outpatient (CLI) | payer MEDICARE, SELFPAY ==
[2019-03-29 00:19] VITALS: BMI 35.5
[2019-04-10 17:49] LABS: Hemoglobin A1C% w Est Avg Glu 8.1 % (4.0-6.0)
[2019-04-10 18:10] LABS: Blood Urea Nitrogen 26 mg/dL (7-17); Calcium 10.9 mg/dL (8.4-10.2); Carbon Dioxide 24 mmol/L (22-32); Chloride 92 mmol/L (98-107); Estimated Glomerular Filt Rate 53.2 mL/min (>60); Glucose 369 mg/dL (80-110); HEMOLYSIS < 15 (0-50); Sodium 131 mmol/L (137-145)
[2019-04-10 18:12] LABS: Potassium 5.8 mmol/L (3.4-5.1)
== END ==
PROVIDERS: PCP Family Medicine; Visit Provider Family Medicine
DX: E11.9 Type 2 diabetes mellitus without complications (principal)
CPT/HCPCS: 36415; 80048; 83036

== ENCOUNTER → 2019-04-21 13:40 | Outpatient (CLI) | payer MEDICARE, SELFPAY ==
[2019-03-29 00:19] VITALS: BMI 35.5
== END ==
PROVIDERS: PCP Family Medicine; Visit Provider Family Medicine
DX: R30.0 Dysuria (principal); N39.0 Urinary tract infection, site not specified

== ENCOUNTER → 2019-04-22 09:00 | Outpatient (CLI) | payer MEDICARE, SELFPAY ==
[2019-03-29 00:19] VITALS: BMI 35.5
[2019-04-22 09:37] LABS: Appearance Urine UA CLEAR; Bilirubin Urine UA NEGATIVE (NEGATIVE); Color Urine UA YELLOW; Glucose Urine UA 1+ g/dL (Negative); Ketones Urine UA NEGATIVE (NEGATIVE); Leukocyte Esterase Urine UA 1+ (NEGATIVE); Nitrite Urine UA NEGATIVE (Negative); Occult Blood Urine UA 2+ (Negative); Protein Urine UA NEGATIVE (Negative); Specific Gravity Urine UA 1.015 (1.000-1.035); Urobilinogen Urine UA 0.2 E.U./dL (0.2)
[2019-04-22 09:45] LABS: Bacteria Urine Few (2-10); RBC Urine 10-30/HPF (0-5/HPF); Squamous Epithelial Cell Urine 1-5 /HPF (0-5/HPF); WBC Urine 30-100/HPF (0-5/HPF)
[2019-04-22 09:46] LABS: Culture Indicated Urine Specimen Cultured
== END ==
PROVIDERS: PCP Family Medicine; Visit Provider Family Medicine
DX: N39.0 Urinary tract infection, site not specified (principal)
CPT/HCPCS: 81001; 87077; 87086; 87185; 87186

== ENCOUNTER → 2019-05-11 15:15 | Outpatient (CLI) | payer MEDICARE, SELFPAY ==
[2019-03-29 00:19] VITALS: BMI 35.5
[2019-05-11 15:41] LABS: Bacteria Urine None Seen
[2019-05-11 16:49] LABS: Add Manual Diff / Slide Review NO; Basophils Absolute Auto 100 /uL (0-100); Basophils Percent Auto 1.2 % (0-2); Eosinophils Absolute Auto 100 /uL (0-450); Eosinophils Percent Auto 1.4 % (2-4); Hematocrit 42.5 % (36-46); Hemoglobin 13.6 g/dL (12.0-16.0); Lymphocytes Absolute Auto 2300 /uL (1100-4500); Lymphocytes Percent Auto 26.6 % (25-40); Mean Corpuscular HGB Conc 32.1 % (30-36); Mean Corpuscular Hemoglobin 29.3 PG (26-34); Mean Corpuscular Volume 91.2 fL (80-100); Monocytes Absolute Auto 600 /uL (0-900); Monocytes Percent Auto 6.5 % (3-14); Neutrophils Absolute Auto 5500 /uL (1500-7000); Neutrophils Percent Auto 64.3 % (50-75); Platelet Count 305 X10^3/uL (150-400); Red Blood Cell Count 4.66 X10^6/uL (4.0-5.2); Red Cell Distribution Width 15.5 % (11.6-14.8); White Blood Cell Count 8.6 X10^3/uL (4.5-11.0)
[2019-05-11 16:53] LABS: Appearance Urine UA CLOUDY; Bilirubin Urine UA NEGATIVE (NEGATIVE); Color Urine UA YELLOW; Glucose Urine UA TRACE g/dL (Negative); Ketones Urine UA NEGATIVE (NEGATIVE); Leukocyte Esterase Urine UA NEGATIVE (NEGATIVE); Nitrite Urine UA NEGATIVE (Negative); Occult Blood Urine UA NEGATIVE (Negative); Protein Urine UA NEGATIVE (Negative); Specific Gravity Urine UA 1.015 (1.000-1.035); Urobilinogen Urine UA 0.2 E.U./dL (0.2)
[2019-05-11 16:56] LABS: Hemoglobin A1C% w Est Avg Glu 8.1 % (4.0-6.0)
[2019-05-11 17:19] LABS: Alanine Aminotransferase 14 IU/L (<35); Albumin 4.1 g/dL (3.5-5.0); Albumin Globulin Ratio 1.4 (1.0-2.8); Alkaline Phosphatase 78 U/L (38-126); Aspartate Aminotransferase 18 IU/L (14-36); BUN Creatinine Ratio 17.5 (6-22); Bilirubin Total 0.3 mg/dL (0.2-1.3); Blood Urea Nitrogen 14 mg/dL (7-17); Calcium 11.2 mg/dL (8.4-10.2); Carbon Dioxide 28 mmol/L (22-32); Chloride 101 mmol/L (98-107); Estimated Glomerular Filt Rate > 60.0 mL/min (>60); Globulin 2.9 g/dL (1.7-4.1); Glucose 107 mg/dL (80-110); HEMOLYSIS < 15 (0-50); Potassium 4.5 mmol/L (3.4-5.1); Sodium 138 mmol/L (137-145)
[2019-05-11 17:37] LABS: RBC Urine 0-1/HPF (0-5/HPF); Squamous Epithelial Cell Urine 0-1 /HPF (0-5/HPF); WBC Urine 0-1/HPF (0-5/HPF)
[2019-05-11 17:38] LABS: Culture Indicated Urine Specimen Cultured
== END ==
PROVIDERS: PCP Family Medicine; Referring Provider Family Medicine; Visit Provider Family Medicine
DX: E11.9 Type 2 diabetes mellitus without complications (principal); N39.0 Urinary tract infection, site not specified
CPT/HCPCS: 36415; 80053; 81001; 83036; 85025; 87086

== ENCOUNTER → 2019-07-12 09:48 | Outpatient (CLI) | payer MEDICARE, SELFPAY ==
[2019-03-29 00:19] VITALS: BMI 35.5
[2019-07-12 12:05] LABS: Add Manual Diff / Slide Review NO; Basophils Absolute Auto 100 /uL (0-100); Basophils Percent Auto 0.8 % (0-2); Eosinophils Absolute Auto 200 /uL (0-450); Eosinophils Percent Auto 2.2 % (2-4); Hematocrit 39.6 % (36-46); Hemoglobin 12.8 g/dL (12.0-16.0); Lymphocytes Absolute Auto 1700 /uL (1100-4500); Lymphocytes Percent Auto 20.5 % (25-40); Mean Corpuscular HGB Conc 32.2 % (30-36); Mean Corpuscular Hemoglobin 29.4 PG (26-34); Mean Corpuscular Volume 91.2 fL (80-100); Monocytes Absolute Auto 500 /uL (0-900); Monocytes Percent Auto 6.5 % (3-14); Neutrophils Absolute Auto 5900 /uL (1500-7000); Platelet Count 317 X10^3/uL (150-400); Red Blood Cell Count 4.35 X10^6/uL (4.0-5.2); Red Cell Distribution Width 14.8 % (11.6-14.8); White Blood Cell Count 8.4 X10^3/uL (4.5-11.0)
[2019-07-12 12:27] LABS: Alanine Aminotransferase 12 IU/L (<35); Albumin 3.9 g/dL (3.5-5.0); Albumin Globulin Ratio 1.4 (1.0-2.8); Alkaline Phosphatase 59 U/L (38-126); Aspartate Aminotransferase 20 IU/L (14-36); BUN Creatinine Ratio 16.5 (6-22); Bilirubin Total 0.4 mg/dL (0.2-1.3); Blood Urea Nitrogen 16 mg/dL (7-17); Calcium 10.9 mg/dL (8.4-10.2); Carbon Dioxide 26 mmol/L (22-32); Chloride 106 mmol/L (98-107); Cholesterol 140 mg/dL (140-199); Estimated Glomerular Filt Rate 55.1 mL/min (>60); Globulin 2.7 g/dL (1.7-4.1); Glucose 85 mg/dL (80-110); HDL Cholesterol 67 mg/dL (40-60); HEMOLYSIS < 15 (0-50); LDL Cholesterol Calculated 44 mg/dL (<100); Potassium 4.5 mmol/L (3.4-5.1); Sodium 139 mmol/L (137-145); Total Protein 6.6 g/dL (6.3-8.2); Triglycerides 147 mg/dL (35-150)
== END ==
PROVIDERS: PCP Family Medicine; Referring Provider Family Medicine; Visit Provider Family Medicine
DX: Z01.89 Encounter for other specified special examinations (principal); Z09 Encounter for follow-up examination after completed treatment for conditions other than malignant neoplasm; Z13.220 Encounter for screening for lipoid disorders; Z13.6 Encounter for screening for cardiovascular disorders; E11.9 Type 2 diabetes mellitus without complications
CPT/HCPCS: 36415; 80053; 80061; 83036; 85025

== ENCOUNTER → 2019-10-16 07:30 | Outpatient (CLI) | payer MEDICARE, SELFPAY ==
[2019-03-29 00:19] VITALS: BMI 35.5
[2019-10-16 08:11] LABS: Hemoglobin A1C% w Est Avg Glu 7.5 % (4.0-6.0)
[2019-10-16 08:30] LABS: BUN Creatinine Ratio 25.7 (6-22); Blood Urea Nitrogen 26 mg/dL (7-17); Calcium 11.3 mg/dL (8.4-10.2); Carbon Dioxide 28 mmol/L (22-32); Chloride 104 mmol/L (98-107); Estimated Glomerular Filt Rate 52.5 mL/min (>60); Glucose 120 mg/dL (80-110); HEMOLYSIS < 15 (0-50); Potassium 4.8 mmol/L (3.4-5.1); Sodium 137 mmol/L (137-145)
== END ==
PROVIDERS: PCP Family Medicine; Referring Provider Family Medicine; Visit Provider Family Medicine
DX: E11.9 Type 2 diabetes mellitus without complications (principal)
CPT/HCPCS: 36415; 80048; 83036

== ENCOUNTER → 2020-02-02 08:05 | Outpatient (CLI) | payer MEDICARE, SELFPAY ==
[2019-03-29 00:19] VITALS: BMI 35.5
[2020-02-02 10:24] LABS: BUN Creatinine Ratio 15.1 (6-22); Blood Urea Nitrogen 21 mg/dL (7-17); Calcium 10.4 mg/dL (8.4-10.2); Carbon Dioxide 31 mmol/L (22-32); Chloride 104 mmol/L (98-107); Estimated Glomerular Filt Rate 36.3 mL/min (>60); Glucose 58 mg/dL (80-110); HEMOLYSIS < 15 (0-50); Potassium 4.6 mmol/L (3.4-5.1); Sodium 137 mmol/L (137-145)
[2020-02-02 10:28] LABS: Hemoglobin A1C% w Est Avg Glu 7.3 % (4.0-6.0)
== END ==
PROVIDERS: PCP Family Medicine; Referring Provider Family Medicine; Visit Provider Family Medicine
DX: E11.9 Type 2 diabetes mellitus without complications (principal)
CPT/HCPCS: 36415; 80048; 83036

== ENCOUNTER → 2020-04-02 11:16 | Outpatient (CLI) | payer OTHER, SELFPAY ==
[2019-03-29 00:19] VITALS: BMI 35.5
[2020-04-02 12:13] LABS: Microalbumin Urine Random < 0.6 mg/dL (0-1.6)
[2020-04-02 12:39] LABS: Hemoglobin A1C% w Est Avg Glu 6.8 % (4.0-6.0)
[2020-04-02 12:44] LABS: BUN Creatinine Ratio 16.3 (6-22); Blood Urea Nitrogen 17 mg/dL (7-17); Calcium 10.6 mg/dL (8.4-10.2); Carbon Dioxide 27 mmol/L (22-32); Chloride 103 mmol/L (98-107); Estimated Glomerular Filt Rate 50.7 mL/min (>60); Glucose 148 mg/dL (80-110); HEMOLYSIS 22 (0-50); Potassium 4.7 mmol/L (3.4-5.1); Sodium 135 mmol/L (137-145)
== END ==
PROVIDERS: PCP Family Medicine; Referring Provider Family Medicine; Visit Provider Family Medicine
DX: E11.9 Type 2 diabetes mellitus without complications (principal); N17.9 Acute kidney failure, unspecified
CPT/HCPCS: 36415; 80048; 82043; 82570; 83036

== ENCOUNTER → 2020-07-02 07:57 | Outpatient (CLI) | payer MEDICARE, SELFPAY ==
[2020-04-19 10:34] VITALS: BMI 35.5
[2020-07-02 09:05] LABS: BUN Creatinine Ratio 19.8 (6-22); Blood Urea Nitrogen 22 mg/dL (7-17); Calcium 10.3 mg/dL (8.4-10.2); Carbon Dioxide 26 mmol/L (22-32); Chloride 105 mmol/L (98-107); Cholesterol 142 mg/dL (140-199); Estimated Glomerular Filt Rate 47.1 mL/min (>60); Glucose 79 mg/dL (80-110); HDL Cholesterol 71 mg/dL (40-60); LDL Cholesterol Calculated 31 mg/dL (<100); Sodium 136 mmol/L (137-145); Triglycerides 198 mg/dL (35-150)
[2020-07-02 09:08] LABS: Hemoglobin A1C% w Est Avg Glu 6.7 % (4.0-6.0)
[2020-07-02 09:13] LABS: HEMOLYSIS 192 (0-50); Potassium 5.7 mmol/L (3.4-5.1)
[2020-07-02 10:11] LABS: Microalbumin Urine Random < 0.6 mg/dL (0-1.6)
[2020-07-02 10:31] LABS: TSH w/ Reflex to FT4 3.14 uIU/mL (0.47-4.68)
== END ==
PROVIDERS: PCP Family Medicine; Referring Provider Family Medicine; Visit Provider Family Medicine
DX: E11.9 Type 2 diabetes mellitus without complications (principal); N17.9 Acute kidney failure, unspecified; E78.2 Mixed hyperlipidemia; I10 Essential (primary) hypertension; R41.3 Other amnesia
CPT/HCPCS: 36415; 80048; 80061; 82043; 82570; 83036; 84443

== ENCOUNTER → 2020-09-23 08:37 | Outpatient (CLI) | payer MEDICARE, SELFPAY ==
[2020-04-19 10:34] VITALS: BMI 35.5
[2020-09-23 09:40] LABS: Hemoglobin A1C% w Est Avg Glu 7.4 % (4.0-6.0)
[2020-09-23 10:05] LABS: Alanine Aminotransferase 20 IU/L (<35); Albumin Globulin Ratio 1.5 (1.0-2.8); Alkaline Phosphatase 66 U/L (38-126); Aspartate Aminotransferase 25 IU/L (14-36); BUN Creatinine Ratio 9.9 (6-22); Bilirubin Total 0.4 mg/dL (0.2-1.3); Blood Urea Nitrogen 13 mg/dL (7-17); Calcium 10.9 mg/dL (8.4-10.2); Carbon Dioxide 22 mmol/L (22-32); Chloride 104 mmol/L (98-107); Estimated Glomerular Filt Rate 38.8 mL/min (>60); Globulin 2.7 g/dL (1.7-4.1); Glucose 301 mg/dL (80-110); HEMOLYSIS < 15 (0-50); Potassium 4.7 mmol/L (3.4-5.1); Sodium 139 mmol/L (137-145); Total Protein 6.7 g/dL (6.3-8.2)
== END ==
PROVIDERS: PCP Family Medicine; Referring Provider Family Medicine; Visit Provider Family Medicine
DX: E11.9 Type 2 diabetes mellitus without complications (principal); I10 Essential (primary) hypertension
CPT/HCPCS: 36415; 80053; 83036

== ENCOUNTER → 2020-10-17 15:57 | Outpatient (CLI) | payer MEDICARE, SELFPAY ==
[2020-04-19 10:34] VITALS: BMI 35.5
[2020-10-17 17:23] LABS: BUN Creatinine Ratio 18.6 (6-22); Blood Urea Nitrogen 21 mg/dL (7-17); Calcium 10.7 mg/dL (8.4-10.2); Carbon Dioxide 25 mmol/L (22-32); Chloride 101 mmol/L (98-107); Glucose 142 mg/dL (80-110); Sodium 134 mmol/L (137-145)
[2020-10-17 17:24] LABS: HEMOLYSIS 54 (0-50)
[2020-10-18 15:45] LABS: Calcium 10.7 mg/dL (8.7-10.3); Parathyroid Hormone, Intact 125 pg/mL (15-65)
== END ==
PROVIDERS: PCP Family Medicine; Referring Provider Family Medicine; Visit Provider Family Medicine
DX: N17.9 Acute kidney failure, unspecified (principal); E11.9 Type 2 diabetes mellitus without complications; E83.52 Hypercalcemia
CPT/HCPCS: 36415; 80048; 82310; 83970

== ENCOUNTER → 2020-11-11 15:23 | Outpatient (CLI) | payer MEDICARE, SELFPAY ==
[2020-04-19 10:34] VITALS: BMI 35.5
[2020-11-11 17:02] LABS: Alanine Aminotransferase 21 IU/L (<35); Albumin 4.1 g/dL (3.5-5.0); Albumin Globulin Ratio 1.5 (1.0-2.8); Alkaline Phosphatase 59 U/L (38-126); Aspartate Aminotransferase 26 IU/L (14-36); BUN Creatinine Ratio 17.4 (6-22); Bilirubin Total 0.3 mg/dL (0.2-1.3); Blood Urea Nitrogen 20 mg/dL (7-17); Calcium 11.3 mg/dL (8.4-10.2); Carbon Dioxide 25 mmol/L (22-32); Chloride 103 mmol/L (98-107); Estimated Glomerular Filt Rate 45.1 mL/min (>60); Globulin 2.7 g/dL (1.7-4.1); Glucose 172 mg/dL (80-110); HEMOLYSIS 27 (0-50); Potassium 5.3 mmol/L (3.4-5.1); Sodium 136 mmol/L (137-145); Total Protein 6.8 g/dL (6.3-8.2)
== END ==
PROVIDERS: PCP Family Medicine; Referring Provider Family Medicine; Visit Provider Family Medicine
DX: N17.9 Acute kidney failure, unspecified (principal)
CPT/HCPCS: 36415; 80053

== ENCOUNTER → 2020-12-26 09:01 | Outpatient (CLI) | payer MEDICARE, SELFPAY ==
[2020-04-19 10:34] VITALS: BMI 35.5
[2020-12-26 11:01] LABS: Alanine Aminotransferase 16 IU/L (<35); Albumin 4.1 g/dL (3.5-5.0); Albumin Globulin Ratio 1.5 (1.0-2.8); Alkaline Phosphatase 65 U/L (38-126); Aspartate Aminotransferase 22 IU/L (14-36); BUN Creatinine Ratio 24.6 (6-22); Bilirubin Total 0.3 mg/dL (0.2-1.3); Blood Urea Nitrogen 34 mg/dL (7-17); Carbon Dioxide 28 mmol/L (22-32); Chloride 104 mmol/L (98-107); Estimated Glomerular Filt Rate 36.5 mL/min (>60); Globulin 2.7 g/dL (1.7-4.1); Glucose 104 mg/dL (80-110); HEMOLYSIS < 15 (0-50); Potassium 4.5 mmol/L (3.4-5.1); Sodium 138 mmol/L (137-145); Total Protein 6.8 g/dL (6.3-8.2)
[2020-12-26 11:03] LABS: Hemoglobin A1C% w Est Avg Glu 7.9 % (4.0-6.0)
== END ==
PROVIDERS: PCP Family Medicine; Referring Provider Family Medicine; Visit Provider Family Medicine
DX: E11.9 Type 2 diabetes mellitus without complications (principal); E87.5 Hyperkalemia
CPT/HCPCS: 36415; 80053; 83036

== ENCOUNTER → 2021-02-17 15:29 | Outpatient (CLI) | payer MEDICARE, SELFPAY ==
[2020-04-19 10:34] VITALS: BMI 35.5
--- NOTE | 2021-02-17 15:30 | DI.RAD.S_ITS ---
PROCEDURE: XR CHEST 2V INDICATIONS: some shortness of breath and LE edema TECHNIQUE: 2 views of the chest were acquired. COMPARISON: [facility], CR, XR CHEST 1V, 03/30/2019, 10:02. FINDINGS: Surgical changes and devices: None. Lungs and pleura: Lungs are clear. No pleural effusions or pneumothorax. Mediastinum: Mediastinal contours are normal. Heart size is normal. Bones and chest wall: No suspicious bony abnormalities. Soft tissues appear unremarkable. IMPRESSION: No acute cardiopulmonary abnormality. Dictated by: Ramón Lacy M.D. on 02/17/2021 at 16:11 Approved by: Ramón Lacy M.D. on 02/17/2021 at 16:12
== END ==
PROVIDERS: PCP Family Medicine; Referring Provider Family Medicine; Visit Provider Family Medicine
DX: E11.9 Type 2 diabetes mellitus without complications (principal); E78.2 Mixed hyperlipidemia; I10 Essential (primary) hypertension; R60.0 Localized edema; R06.02 Shortness of breath
CPT/HCPCS: 71046

== ENCOUNTER → 2021-04-01 07:48 | Outpatient (CLI) | payer MEDICARE, SELFPAY ==
[2020-04-19 10:34] VITALS: BMI 35.5
[2021-04-01 09:06] LABS: Alanine Aminotransferase 12 IU/L (<35); Albumin 3.8 g/dL (3.5-5.0); Albumin Globulin Ratio 1.5 (1.0-2.8); Alkaline Phosphatase 62 U/L (38-126); Aspartate Aminotransferase 17 IU/L (14-36); Bilirubin Total 0.3 mg/dL (0.2-1.3); Blood Urea Nitrogen 9 mg/dL (7-17); Calcium 11.1 mg/dL (8.4-10.2); Carbon Dioxide 27 mmol/L (22-32); Chloride 106 mmol/L (98-107); Estimated Glomerular Filt Rate 46.5 mL/min (>60); Globulin 2.6 g/dL (1.7-4.1); Glucose 100 mg/dL (80-110); HEMOLYSIS < 15 (0-50); Potassium 4.5 mmol/L (3.4-5.1); Sodium 137 mmol/L (137-145); Total Protein 6.4 g/dL (6.3-8.2)
[2021-04-01 09:11] LABS: NT-proBNP (BNP-Adult 18+) 115 pg/mL (<450)
== END ==
PROVIDERS: PCP Family Medicine; Referring Provider Family Medicine; Visit Provider Family Medicine
DX: R60.0 Localized edema (principal); E11.9 Type 2 diabetes mellitus without complications; E78.2 Mixed hyperlipidemia; I10 Essential (primary) hypertension
CPT/HCPCS: 36415; 80053; 83880

== ENCOUNTER → 2021-04-21 13:09 | Outpatient (CLI) | payer MEDICARE, SELFPAY ==
[2020-04-19 10:34] VITALS: BMI 35.5
[2021-04-21 15:31] LABS: Influenza A - CEPHEID Flu A NEGATIVE (NEGATIVE); Influenza B - CEPHEID Flu B NEGATIVE (NEGATIVE)
[2021-04-21 17:04] LABS: COVID-19 CEPHEID PCR (VTM/NP) POSITIVE (Negative)
== END ==
PROVIDERS: PCP Family Medicine; Visit Provider Family Medicine
DX: Z20.822 Contact with and (suspected) exposure to COVID-19 (principal); R06.02 Shortness of breath; J34.89 Other specified disorders of nose and nasal sinuses
CPT/HCPCS: 87502; U0003

== ENCOUNTER 2021-05-01 13:47 | Emergency (ER) | payer MEDICARE, SELFPAY ==
[2020-04-19 10:34] VITALS: BMI 35.5
[2021-05-01 13:51] VITALS: BP 145/70; PULSE 74; RESP 16; TEMP 35.9; O2SAT 98; BMI 35.5
== END 2021-05-01 15:13 | disposition left against medical advice (07) ==
PROVIDERS: Emergency Provider Emergency Medicine; PCP Family Medicine
DX: U07.1 COVID-19 (principal)
CPT/HCPCS: 99281

== ENCOUNTER → 2021-12-11 13:50 | Outpatient (CLI) | payer MEDICARE, SELFPAY ==
[2020-04-19 10:34] VITALS: BMI 35.5
[2021-12-11 15:21] LABS: Add Manual Diff / Slide Review NO; Basophils Absolute Auto 100 /uL (0-100); Basophils Percent Auto 0.7 % (0-2); Eosinophils Absolute Auto 200 /uL (0-450); Eosinophils Percent Auto 1.5 % (2-4); Hematocrit 46.1 % (36-46); Lymphocytes Absolute Auto 1300 /uL (1100-4500); Lymphocytes Percent Auto 11.9 % (25-40); Mean Corpuscular HGB Conc 32.5 % (30-36); Mean Corpuscular Hemoglobin 28.7 PG (26-34); Mean Corpuscular Volume 88.4 fL (80-100); Monocytes Absolute Auto 600 /uL (0-900); Monocytes Percent Auto 5.7 % (3-14); Neutrophils Absolute Auto 8900 /uL (1500-7000); Neutrophils Percent Auto 80.2 % (50-75); Platelet Count 309 X10^3/uL (150-400); Red Blood Cell Count 5.22 X10^6/uL (4.0-5.2); Red Cell Distribution Width 14.8 % (11.6-14.8); White Blood Cell Count 11.1 X10^3/uL (4.5-11.0)
[2021-12-11 15:54] LABS: Alanine Aminotransferase 12 IU/L (<35); Albumin 3.9 g/dL (3.5-5.0); Albumin Globulin Ratio 1.4 (1.0-2.8); Alkaline Phosphatase 68 U/L (38-126); Aspartate Aminotransferase 14 IU/L (14-36); BUN Creatinine Ratio 13.1 (6-22); Bilirubin Total 0.3 mg/dL (0.2-1.3); Blood Urea Nitrogen 16 mg/dL (7-17); Carbon Dioxide 26 mmol/L (22-32); Chloride 99 mmol/L (98-107); Estimated Glomerular Filt Rate 44 mL/min (>60); Globulin 2.7 g/dL (1.7-4.1); Glucose 227 mg/dL (80-110); HEMOLYSIS 16 (0-50); Potassium 5.2 mmol/L (3.4-5.1); Sodium 136 mmol/L (137-145); Total Protein 6.6 g/dL (6.3-8.2)
[2021-12-11 18:33] LABS: Creatinine Urine Random 82.4 mg/dL
[2021-12-11 18:38] LABS: Microalbumi Creatinin Ratio Ur 15.7 ug/mg CR (<30); Microalbumin Urine Random 1.3 mg/dL (0-1.6)
[2021-12-13 11:16] LABS: Calcium 10.7 mg/dL (8.7-10.3); Parathyroid Hormone, Intact 141 pg/mL (15-65)
== END ==
PROVIDERS: PCP Family Medicine; Referring Provider Family Medicine; Visit Provider Family Medicine
DX: E11.9 Type 2 diabetes mellitus without complications (principal); E21.3 Hyperparathyroidism, unspecified; E78.2 Mixed hyperlipidemia; I10 Essential (primary) hypertension; R79.89 Other specified abnormal findings of blood chemistry; R41.3 Other amnesia; R60.0 Localized edema
CPT/HCPCS: 36415; 80053; 82043; 82310; 82570; 83036; 83970; 85025

== ENCOUNTER → 2021-12-17 11:41 | Outpatient (CLI) | payer MEDICARE, SELFPAY ==
[2020-04-19 10:34] VITALS: BMI 35.5
== END ==
PROVIDERS: PCP Family Medicine; Referring Provider Family Medicine; Visit Provider Family Medicine
DX: M85.852 Other specified disorders of bone density and structure, left thigh (principal); Z78.0 Asymptomatic menopausal state; Z13.820 Encounter for screening for osteoporosis; M85.851 Other specified disorders of bone density and structure, right thigh; E21.3 Hyperparathyroidism, unspecified
CPT/HCPCS: 77080

== ENCOUNTER 2022-02-11 14:32 | Emergency (ER) | payer MEDICARE, SELFPAY ==
[2020-04-19 10:34] VITALS: BMI 35.5
[2022-02-11] VITALS (10 sets, daily range): BP systolic 143–170; BP diastolic 74–103; PULSE 76–99; RESP 15–18; TEMP 35.8–36.8; O2SAT 92–99; BMI 33.3
--- NOTE | 2022-02-11 15:40 | DI.RAD.S_ITS ---
PROCEDURE: XR ACUTE ABDOMEN SERIES INDICATIONS: Nausea, vomiting, diarrhea TECHNIQUE: One view chest and two views of the abdomen were acquired. COMPARISON: [facility], , ABDOMEN ACUTE SERIES, 04/07/2012, 7:38. FINDINGS: Surgical changes and devices: None. Chest: No consolidation. Minimal platelike left basilar opacity. Heart size is normal. No pleural effusions. No pneumoperitoneum. Abdomen: No pathologically dilated gas-filled loops of bowel. Bones: No suspicious bony lesions. IMPRESSION: 1. No pathologically dilated gas-filled loops of bowel are demonstrated, however there is a paucity of small bowel gas and fluid-filled dilated loops of bowel could be present and radiographically occult. CT of the abdomen and pelvis could be obtained for further evaluation if clinically indicated. 2. No consolidation demonstrated. Minimal left basilar opacity present probably representing scarring and/or atelectasis. Dictated by: Karlos Cerna M.D. on 02/11/2022 at 16:36 Approved by: Karlos Cerna M.D. on 02/11/2022 at 16:41
--- NOTE | 2022-02-11 16:02 | ED.NAVMDI ---
HPI - Nausea/Vomiting/Diarrhea General Chief complaint: Nausea/Vomiting/Diarrhea Stated complaint: V/D Time Seen by Provider: 02/11/22 15:28 Source: patient Mode of arrival: Wheelchair Related Data Previous Rx's Medication Instructions Recorded insulin syringe,safetyneedle 0.5 #500 ea 04/13/18 mL 29 gauge x 1/2 (Assure ID Insulin Safety) miscellaneous medical supply #1 ea 03/02/19 albuterol sulfate 90 mcg/actuation 2 puff inhalation Q6H PRN 02/09/20 aerosol inhaler shortness of breath or wheezing #6.[address] permit #1 ea 02/09/20 methocarbamol 750 mg tablet 750 mg PO Q8H PRN jaw pain #20 tabs 07/08/20 (Robaxin-750) blood sugar diagnostic (Glucocard See Rx Instructions .Route 12/23/20 Expression strips) .COMPLEX #100 ea doxycycline hyclate 100 mg capsule 100 mg PO BID #14 caps 01/08/21 metformin 1,000 mg tablet 1,000 mg PO BIDCC #180 tabs 06/30/21 ketoconazole 2 % topical cream 1 applic topical BID #30 grams 07/22/21 furosemide 20 mg tablet 20 mg PO DAILY #90 tabs 07/28/21 furosemide 20 mg tablet See Rx Instructions .Route 07/28/21 .COMPLEX #90 tabs losartan 25 mg tablet 25 mg PO DAILY #90 tabs 09/05/21 dulaglutide 1.5 mg/0.5 mL 1.5 mg (0.5 mL) SUBCUT QWEEK #2 mL 09/22/21 subcutaneous pen injector amlodipine 10 mg tablet 10 mg PO DAILY #90 tabs 11/17/21 donepezil 5 mg tablet 5 mg PO BEDTIME #90 tabs 11/17/21 estradiol 1 mg tablet 1 mg PO QAM #90 tabs 11/17/21 levothyroxine 50 mcg tablet See Rx Instructions .Route 11/17/21 .COMPLEX #90 tabs lovastatin 20 mg tablet 20 mg PO QPM #90 tabs 11/17/21 pen needle, diabetic 31 gauge x See Rx Instructions .Route 11/21/21/16 (TRUEplus Pen Needle) .COMPLEX #100 ea insulin glargine 100 unit/mL (3 See Rx Instructions .Route 12/25/21 mL) subcutaneous pen (Lantus .COMPLEX #15 mL Solostar U-100 Insulin) Allergies Allergy/AdvReac Type Severity Reaction Status Date / Time penicillin G [PENICILLIN G] Allergy Intermediate Hives Verified 02/11/22 14:36 Patient History Medical History (Updated 09/22/21 @ 13:50 by Keenan Stout MD) Cataract (~2014) Cellulitis Contusion of rib on right side Contusion of right shoulder CVA (cerebral vascular accident) CVA, old, alterations of sensations Diabetes mellitus (~1996) Eczema (~2013) Excessive daytime sleepiness Foot pain (~1962) Fractures (~1962) Hepatitis C (~1948) Hyperparathyroidism Hypoxemia Infection of fingernail of left hand Laceration of hand Lower extremity edema Nocturnal hypoxemia Obesity (BMI 30-39.9) Obstructive sleep apnea of adult (~08/2018) Shortness of breath Swelling of left hand UTI (urinary tract infection) Surgical History Anesthesia Personal history of spine surgery (~2003) Personal history of spine surgery (~2005) Family History Brother No problems noted. Father No problems noted. Mother No problems noted. Social History household members: family Smoking Status: Never smoker alcohol intake: never Smoking Status: Never smoker alcohol intake frequency: 0-2 drinks per day Substance Use Type: does not use Exam Initial Vital Signs Initial Vital Signs: Vital Signs Temperature 96.4 F L 02/11/22 14:34 Pulse Rate 99 H 02/11/22 14:34 Respiratory Rate 15 02/11/22 14:34 Blood Pressure 149/74 H 02/11/22 14:34 Pulse Oximetry 97 02/11/22 14:34 Oxygen Delivery Method 02/11/22 14:34 Course Orders Ordered: ED Orders 02/11/22 15:40 XR acute abdomen series Stat Complete Blood Count AUTO DIFF Stat Comprehensive Metabolic Panel Stat Lipase Stat MAG [Magnesium] Stat Sodium Chloride (Normal Saline 0.9%) 1,000 mls @ 1,000 mls/hr IV BOLUS ONE Stop: 02/11/22 16:39 Discontinued Medications Ondansetron HCl (Ondansetron 4 Mg/2 Ml Inj) 4 mg IV NOW ONE Stop: 02/11/22 15:41 Vital Signs Vital signs: Vital Signs - 8 hr 02/11/22 14:34 02/11/22 15:27 02/11/22 15:28 Temperature 96.4 F L Pulse Rate 99 H 90 90 Respiratory Rate 15 Blood Pressure 149/74 H Pulse Oximetry 97 95 95 Oxygen Delivery Method Room Air 02/11/22 15:28 02/11/22 15:30 Temperature Pulse Rate 84 Respiratory Rate Blood Pressure 143/103 H Pulse Oximetry 97 Oxygen Delivery Method MDM - Nausea/Vomiting/Diarrhea Lab Data Labs: Point of Care Testing Glucose POC 202 Discharge Plan Departure Prescriptions: No Action (DME) miscellaneous medical supply Misc See Dose Instructions .Route .MEDSUPPLY Qty: 1 0RF Dose Instruction: Disabled Parking Permit Rx Instructions: Disabled Parking Permit Glucocard Expression Strip See Rx Instructions .ROUTE .COMPLEX Qty: 100 2RF Dose Instruction: USE TO CHECK BLOOD SUGAR FROM FINGER TWICE DAILY Rx Instructions: USE TO CHECK BLOOD SUGAR FROM FINGER TWICE DAILY doxycycline hyclate 100 mg capsule 100 mg PO BID Qty: 14 0RF metformin 1,000 mg tablet 1,000 mg PO BIDCC Qty: 180 3RF furosemide 20 mg tablet 20 mg PO DAILY Qty: 90 4RF furosemide 20 mg tablet See Rx Instructions .ROUTE .COMPLEX Qty: 90 3RF Dose Instruction: TAKE 1 TABLET BY MOUTH DAILY NEEDED FOR EDEMA Rx Instructions: TAKE 1 TABLET BY MOUTH DAILY NEEDED FOR EDEMA losartan 25 mg tablet 25 mg PO DAILY Qty: 90 3RF amlodipine 10 mg tablet 10 mg PO DAILY Qty: 90 3RF donepezil 5 mg tablet 5 mg PO BEDTIME Qty: 90 3RF Rx Instructions: TAKE 1 TABLET BY MOUTH BEDTIME levothyroxine 50 mcg tablet See Rx Instructions .ROUTE .COMPLEX Qty: 90 3RF Dose Instruction: TAKE 1 TABLET (50 MCG) BY MOUTH DAILY SCHEDULE FOLLOW UP APPT. BEFORE NEXT REFILL. Rx Instructions: TAKE 1 TABLET (50 MCG) BY MOUTH DAILY SCHEDULE FOLLOW UP APPT. BEFORE NEXT REFILL. lovastatin 20 mg tablet 20 mg PO QPM Qty: 90 3RF estradiol 1 mg tablet 1 mg PO QAM Qty: 90 3RF pen needle, diabetic [TRUEplus Pen Needle] 31 gauge x 5/16 needle See Rx Instructions .ROUTE .COMPLEX Qty: 100 3RF Dose Instruction: USE FOR INSULIN INJECTIONS Rx Instructions: USE FOR INSULIN INJECTIONS Lantus Solostar U-100 Insulin 100 unit/mL (3 mL) insulin pen See Rx Instructions .ROUTE .COMPLEX Qty: 15 0RF Dose Instruction: ADMINISTER 40 UNITS UNDER THE SKIN EVERY EVENING Rx Instructions: ADMINISTER 40 UNITS UNDER THE SKIN EVERY EVENING (DME) insulin syringe,safetyneedle [Assure ID Insulin Safety] 0.5 mL 29 gauge x 1/2 syringe See Dose Instructions .ROUTE .MEDSUPPLY Qty: 500 0RF Dose Instruction: As directed Rx Instructions: As directed dulaglutide 1.5 mg/0.5 mL pen injector 1.5 mg SUBCUT QWEEK Qty: 2 3RF (DME) disabled parking permit See Rx Instructions .ROUTE .MEDSUPPLY Qty: 1 0RF Rx Instructions: As directed. patient qualifies for disabled parking as per attached form. albuterol sulfate 90 mcg/actuation HFA aerosol inhaler 2 puff INHALATION Q6H PRN (Reason: shortness of breath or wheezing) Qty: 6.7 0RF methocarbamol [Robaxin-750] 750 mg tablet 750 mg PO Q8H PRN (Reason: jaw pain) Qty: 20 0RF ketoconazole 2 % cream 1 applic topical BID Qty: 30 0RF Rx Instructions: until resolved Referrals: Keenan Stout MD [Primary Care Provider] -
[2022-02-11 16:18] LABS: Add Manual Diff / Slide Review NO; Basophils Absolute Auto 100 /uL (0-100); Basophils Percent Auto 0.5 % (0-2); Eosinophils Absolute Auto 0 /uL (0-450); Eosinophils Percent Auto 0.2 % (2-4); Hematocrit 46.6 % (36-46); Hemoglobin 14.9 g/dL (12.0-16.0); Lymphocytes Absolute Auto 1000 /uL (1100-4500); Lymphocytes Percent Auto 6.2 % (25-40); Mean Corpuscular Volume 87.3 fL (80-100); Monocytes Absolute Auto 500 /uL (0-900); Monocytes Percent Auto 3.4 % (3-14); Neutrophils Absolute Auto 14200 /uL (1500-7000); Neutrophils Percent Auto 89.7 % (50-75); Platelet Count 287 X10^3/uL (150-400); Red Blood Cell Count 5.33 X10^6/uL (4.0-5.2); Red Cell Distribution Width 14.8 % (11.6-14.8); White Blood Cell Count 15.8 X10^3/uL (4.5-11.0)
[2022-02-11] MEDS: SODIUM CHLORIDE 0.9% 1,000 ML 1000 ML IV (16:28)
[2022-02-11] MEDS: ONDANSETRON 4 MG/2 ML INJ IV (16:31)
[2022-02-11 16:50] LABS: Alanine Aminotransferase 16 IU/L (<35); Albumin 3.9 g/dL (3.5-5.0); Albumin Globulin Ratio 1.2 (1.0-2.8); Alkaline Phosphatase 84 U/L (38-126); Aspartate Aminotransferase 20 IU/L (14-36); BUN Creatinine Ratio 16.9 (6-22); Bilirubin Total 0.6 mg/dL (0.2-1.3); Blood Urea Nitrogen 20 mg/dL (7-17); Calcium 10.8 mg/dL (8.4-10.2); Carbon Dioxide 27 mmol/L (22-32); Chloride 97 mmol/L (98-107); Estimated Glomerular Filt Rate 46 mL/min (>60); Globulin 3.3 g/dL (1.7-4.1); Glucose 193 mg/dL (80-110); HEMOLYSIS 17 (0-50); Lipase 41 U/L (23-300); Magnesium 1.4 mg/dL (1.6-2.3); Sodium 133 mmol/L (137-145); Total Protein 7.2 g/dL (6.3-8.2)
--- NOTE | 2022-02-11 17:20 | ED_ITS ---
HPI - Nausea/Vomiting/Diarrhea General Chief complaint: Nausea/Vomiting/Diarrhea Stated complaint: V/D Time Seen by Provider: 02/11/22 15:28 Source: patient Mode of arrival: Wheelchair History of Present Illness HPI Narrative: 86-year-old female nonsmoker with history of hypertension, hyperparathyroidism, memory impairment and depression presents with family in the chief complaint of multiple episodes of vomiting and diarrhea over the past few days. She states that she feels fine denies any dizziness, weakness or lightheadedness. She has no chest pain or shortness of breath. She denies any abdominal pain. She denies any blood in her stool. She denies recent use of antibiotics, international travel, bad food or exposure to other ill persons. Related Data Previous Rx's Medication Instructions Recorded insulin syringe,safetyneedle 0.5 #500 ea 04/13/18 mL 29 gauge x 1/2 (Assure ID Insulin Safety) miscellaneous medical supply #1 ea 03/02/19 albuterol sulfate 90 mcg/actuation 2 puff inhalation Q6H PRN 02/09/20 aerosol inhaler shortness of breath or wheezing #6.7 grams disabled parking permit #1 ea 02/09/20 methocarbamol 750 mg tablet 750 mg PO Q8H PRN jaw pain #20 tabs 07/08/20 (Robaxin-750) blood sugar diagnostic (Glucocard See Rx Instructions .Route 12/23/20 Expression strips) .COMPLEX #100 ea doxycycline hyclate 100 mg capsule 100 mg PO BID #14 caps 01/08/21 metformin 1,000 mg tablet 1,000 mg PO BIDCC #180 tabs 06/30/21 ketoconazole 2 % topical cream 1 applic topical BID #30 grams 07/22/21 furosemide 20 mg tablet 20 mg PO DAILY #90 tabs 07/28/21 furosemide 20 mg tablet See Rx Instructions .Route 07/28/21 .COMPLEX #90 tabs losartan 25 mg tablet 25 mg PO DAILY #90 tabs 09/05/21 dulaglutide 1.5 mg/0.5 mL 1.5 mg (0.5 mL) SUBCUT QWEEK #2 mL 09/22/21 subcutaneous pen injector amlodipine 10 mg tablet 10 mg PO DAILY #90 tabs 11/17/21 donepezil 5 mg tablet 5 mg PO BEDTIME #90 tabs 11/17/21 estradiol 1 mg tablet 1 mg PO QAM #90 tabs 11/17/21 levothyroxine 50 mcg tablet See Rx Instructions .Route 11/17/21 .COMPLEX #90 tabs lovastatin 20 mg tablet 20 mg PO QPM #90 tabs 11/17/21 pen needle, diabetic 31 gauge x See Rx Instructions .Route 11/21/21 5/16 (TRUEplus Pen Needle) .COMPLEX #100 ea insulin glargine 100 unit/mL (3 See Rx Instructions .Route 12/25/21 mL) subcutaneous pen (Lantus .COMPLEX #15 mL Solostar U-100 Insulin) cephalexin 500 mg capsule 500 mg PO BID 7 days #14 caps 02/11/22 ondansetron 4 mg disintegrating 4 mg PO TID-QID PRN nausea and 02/11/22 tablet vomiting #10 tabs Allergies Allergy/AdvReac Type Severity Reaction Status Date / Time penicillin G [PENICILLIN G] Allergy Intermediate Hives Verified 02/11/22 14:36 Patient History Medical History (Updated 02/11/22 @ 18:20 by Rhett Radford DO) Cataract (~2014) Cellulitis Contusion of rib on right side Contusion of right shoulder CVA (cerebral vascular accident) CVA, old, alterations of sensations Diabetes mellitus (~1996) Eczema (~2013) Excessive daytime sleepiness Foot pain (~1962) Fractures (~1962) Hepatitis C (~1948) Hyperparathyroidism Hypoxemia Infection of fingernail of left hand Laceration of hand Lower extremity edema Nocturnal hypoxemia Obesity (BMI 30-39.9) Obstructive sleep apnea of adult (~08/2018) Shortness of breath Swelling of left hand UTI (urinary tract infection) Surgical History Anesthesia Personal history of spine surgery (~2003) Personal history of spine surgery (~2005) Family History Brother No problems noted. Father No problems noted. Mother No problems noted. Social History household members: family Smoking Status: Never smoker alcohol intake: never Smoking Status: Never smoker alcohol intake frequency: 0-2 drinks per day Substance Use Type: does not use Exam Narrative Exam Narrative: GENERAL: [86] year old patient appears stated age. Well-developed patient, in mild distress. GCS 14 HEAD: Atraumatic. Normocephalic. EYES: Pupils equal round and reactive. Extraocular motions intact. No scleral icterus. No injection or drainage. ENT: Nose without bleeding, purulent drainage. Throat without erythema, tonsillar hypertrophy or exudate. Airway patent. NECK: Trachea midline. Non tender CARDIOVASCULAR: Regular rate and rhythm without murmurs, gallops, or rubs. RESPIRATORY: Clear to auscultation. Breath sounds equal bilaterally. No wheezes, rales, or rhonchi. GASTROINTESTINAL: Abdomen soft, non-tender, nondistended. EXTREMITIES: No edema or joint tenderness. BACK: Nontender without deformity or crepitance. No flank tenderness. NEURO: AOx3. SKIN: No rash or erythema of visible areas Initial Vital Signs Initial Vital Signs: Vital Signs Temperature 96.4 F L 02/11/22 14:34 Pulse Rate 99 H 02/11/22 14:34 Respiratory Rate 15 02/11/22 14:34 Blood Pressure 149/74 H 02/11/22 14:34 Pulse Oximetry 97 02/11/22 14:34 Oxygen Delivery Method 02/11/22 14:34 Course Orders Ordered: ED Orders 02/11/22 15:40 XR acute abdomen series Stat 02/11/22 16:05 Complete Blood Count AUTO DIFF Stat Comprehensive Metabolic Panel Stat Lipase Stat MAG [Magnesium] Stat Discontinued Medications Sodium Chloride (Normal Saline 0.9%) 1,000 mls @ 1,000 mls/hr IV BOLUS ONE Stop: 02/11/22 16:39 Last Infusion: 02/11/22 17:41 Dose: 0 mls/hr Documented By: Admin: 02/11/22 16:28 Dose: 1,000 mls/hr Documented By: SUSAN Ondansetron HCl (Ondansetron 4 Mg/2 Ml Inj) 4 mg IV NOW ONE Stop: 02/11/22 15:41 Last Admin: 02/11/22 16:31 Dose: 4 mg Documented By: SUSAN Vital Signs Vital signs: Vital Signs - 8 hr 02/11/22 14:34 02/11/22 15:27 02/11/22 15:28 Temperature 96.4 F L Pulse Rate 99 H 90 90 Respiratory Rate 15 Blood Pressure 149/74 H Pulse Oximetry 97 95 95 Oxygen Delivery Method Room Air 02/11/22 15:28 02/11/22 15:30 02/11/22 16:00 Temperature Pulse Rate 84 80 Respiratory Rate Blood Pressure 143/103 H Pulse Oximetry 97 99 Oxygen Delivery Method 02/11/22 16:30 02/11/22 17:00 02/11/22 17:30 Temperature Pulse Rate 80 79 79 Respiratory Rate Blood Pressure Pulse Oximetry 97 95 92 Oxygen Delivery Method Room Air MDM - Nausea/Vomiting/Diarrhea Lab Data Result diagrams: 02/11/22 16:05 02/11/22 16:05 Labs: Lab Results 02/11/22 02/11/22 Range/Units 16:05 16:05 WBC 15.8 H (4.5-11.0) X10^3/uL RBC 5.33 H (4.0-5.2) X10^6/uL Hgb 14.9 (12.0-16.0) g/dL Hct 46.6 H (36-46) % MCV 87.3 (80-100) fL MCH 28.0 (26-34) PG MCHC 32.0 (30-36) % RDW 14.8 (11.6-14.8) % Plt Count 287 (150-400) X10^3/uL Neut % (Auto) 89.7 H (50-75) % Lymph % (Auto) 6.2 L (25-40) % [place] % (Auto) 3.4 (3-14) % Eos % (Auto) 0.2 L (2-4) % Baso % (Auto) 0.5 (0-2) % Neut # (Auto) 14772 H (1780-3445) /uL Lymph # (Auto) 1000 L (4406-9846) /uL [place] # (Auto) 500 (0-900) /uL Eos # (Auto) 0 (0-450) /uL Baso # (Auto) 100 (0-100) /uL Sodium 133 L (137-145) mmol/L Potassium 4.0 (3.4-5.1) mmol/L Chloride 97 L (98-107) mmol/L Carbon Dioxide 27 (22-32) mmol/L BUN 20 H (7-17) mg/dL Creatinine 1.18 H (0.52-1.04) mg/dL Estimated GFR 46 L (>60) mL/min BUN/Creatinine Ratio 16.9 (6-22) Glucose 193 H (80-110) mg/dL Calcium 10.8 H (8.4-10.2) mg/dL Magnesium 1.4 L (1.6-2.3) mg/dL Total Bilirubin 0.6 (0.2-1.3) mg/dL AST 20 (14-36) IU/L ALT 16 (<35) IU/L Alkaline Phosphatase 84 (38-126) U/L Total Protein 7.2 (6.3-8.2) g/dL Albumin 3.9 (3.5-5.0) g/dL Globulin 3.3 (1.7-4.1) g/dL Albumin/Globulin Ratio 1.2 (1.0-2.8) Lipase 41 (23-300) U/L Point of Care Testing Glucose POC 202 Imaging Data Chest x-ray: Radiologist's Impression: Isabella Lucero??86??F??1935 ? Allergy/Adv: penicillin G Close Chest/Abdomen X-ray (Signed) Karlos Cerna - 02/11/22 DEXA Result 12/17/21 Bone Densitometry 12/17/21 Chest X-Ray (Signed) Ramón Lacy - 02/17/21 Brain MRI (Signed) Perez Trinidad - 03/31/[address] (Signed) Perez Trinidad - 03/31/19 Chest X-Ray (Signed) Ariana Cantor - 03/30/19 Chest X-Ray (Signed) Ignacio Flower - 03/28/19 Echocardiogram Ultrasound (Signed) Ariel Avendano - 06/11/18 Brain MRI (Signed) Radha Desai - 06/11/18 Telemetry Strips 06/11/18 Chest X-Ray (Signed) Radha Desai - 06/11/[address] (Signed) Radha Desai - 06/11/18 Cervical Spine MRI (Signed) Olu Garcia - 05/23/18 Lumbar Spine X-Ray (Signed) Raul Bejarano - 05/13/18 Hip X-Ray (Signed) Raul Bejarano - 05/13/[address] (Signed) ChingDada duartemisty - 12/23/17 Knee X-Ray (Signed) Perez Trinidad - 10/03/[address] (Signed) Perez Trinidad - 10/03/17 Brain MRI (Signed) Gautam Eliasmaral - 08/26/17 Launch?Image [address] [address] XRay Report Signed Patient: Isabella Lucero MR#: [id number] : 1935 Acct:[id number] Age/Sex: 86 / F Date of Service: 02/11/22 Loc: ED Accession Number: [id number] ?? Procedure: XR acute abdomen series Ordering Provider: Rhett Radford D.O. PROCEDURE:? XR ACUTE ABDOMEN SERIES ? INDICATIONS:? Nausea, vomiting, diarrhea ? TECHNIQUE:? One view chest and two views of the abdomen were acquired.? ? COMPARISON:? [facility], CR, ABDOMEN ACUTE SERIES, 04/07/2012, 7:38. ? FINDINGS:? ? Surgical changes and devices:? None.? ? Chest:? No consolidation.? Minimal platelike left basilar opacity.? Heart size is normal. ?No pleural effusions.? No pneumoperitoneum.? ? Abdomen:? No pathologically dilated gas-filled loops of bowel. ? Bones:? No suspicious bony lesions.? ? IMPRESSION:? 1.? No pathologically dilated gas-filled loops of bowel are demonstrated, however there is a paucity of small bowel gas and fluid-filled dilated loops of bowel could be present and radiographically occult.? CT of the abdomen and pelvis could be obtained for further evaluation if clinically indicated. 2. No consolidation demonstrated.? Minimal left basilar opacity present probably representing scarring and/or atelectasis.? ? ? Dictated by: Karlos Cerna M.D. on 02/11/2022 at 16:36 ? ? Approved by: Karlos Cerna M.D. on 02/11/2022 at 16:41 ? MDM Narrative Medical decision making narrative: Patient with reassuring history and physical exam and actually very little complaint. Hemodynamically stable with labs largely at her baseline. She has no pain and imaging demonstrates no obstructive process. She is given antiemetics and able to tolerate oral hydration. Urine POC demonstrates leuks and nitrates, culture pending. Return precautions discussed and questions answered to her apparent satisfaction Discharge Plan Departure Patient Disposition: Home Clinical Impression: Vomiting, Diarrhea Instructions: Diarrhea, DI for Urinary Tract Infection (UTI), DI for Vomiting -- Adult Activity Restrictions/Additional Instructions: *You have been diagnosed with [nausea, vomiting and diarrhea along with urinary tract infection] * As we discussed your history and physical exam as well as labs and imaging are very reassuring. *What to do: *Please continue to take your regular medications as directed. [x ] New medication prescriptions sent to your pharmacy: [[facility] ] *Please follow up with your primary care provider in 2-3 days, call for an appointment. Let them know you were seen in the Emergency Department and that we ask that you be seen in follow up. We will electronically transmit a record of today's note if your PCP is in our system *Please consider a clear liquid diet for the next 24-48 hours and then slowly advance to regular as tolerated. Also, try to avoid alcohol, nicotine, caffeine, spicy, acidic or fatty foods as this may worsen your symptoms *If you do not have a primary care provider please contact the [facility] Resource line at [phone]. They will ask some questions about your medical history and help get you set up with a doctor in the community. *Return to Emergency Department if you should have any new, worsening or concerning symptoms, such as [fever greater than 101 F, shaking chills, worsening pain, persistent vomiting or other bothersome symptoms] Prescriptions: New ondansetron 4 mg tablet,disintegrating 4 mg PO TID-QID PRN (Reason: nausea and vomiting) Qty: 10 0RF cephalexin 500 mg capsule 500 mg PO BID 7 Days Qty: 14 0RF No Action (DME) miscellaneous medical supply Misc See Dose Instructions .Route .MEDSUPPLY Qty: 1 0RF Dose Instruction: Disabled Parking Permit Rx Instructions: Disabled Parking Permit Glucocard Expression Strip See Rx Instructions .ROUTE .COMPLEX Qty: 100 2RF Dose Instruction: USE TO CHECK BLOOD SUGAR FROM FINGER TWICE DAILY Rx Instructions: USE TO CHECK BLOOD SUGAR FROM FINGER TWICE DAILY doxycycline hyclate 100 mg capsule 100 mg PO BID Qty: 14 0RF metformin 1,000 mg tablet 1,000 mg PO BIDCC Qty: 180 3RF furosemide 20 mg tablet 20 mg PO DAILY Qty: 90 4RF furosemide 20 mg tablet See Rx Instructions .ROUTE .COMPLEX Qty: 90 3RF Dose Instruction: TAKE 1 TABLET BY MOUTH DAILY NEEDED FOR EDEMA Rx Instructions: TAKE 1 TABLET BY MOUTH DAILY NEEDED FOR EDEMA losartan 25 mg tablet 25 mg PO DAILY Qty: 90 3RF amlodipine 10 mg tablet 10 mg PO DAILY Qty: 90 3RF donepezil 5 mg tablet 5 mg PO BEDTIME Qty: 90 3RF Rx Instructions: TAKE 1 TABLET BY MOUTH BEDTIME levothyroxine 50 mcg tablet See Rx Instructions .ROUTE .COMPLEX Qty: 90 3RF Dose Instruction: TAKE 1 TABLET (50 MCG) BY MOUTH DAILY SCHEDULE FOLLOW UP APPT. BEFORE NEXT REFILL. Rx Instructions: TAKE 1 TABLET (50 MCG) BY MOUTH DAILY SCHEDULE FOLLOW UP APPT. BEFORE NEXT REFILL. lovastatin 20 mg tablet 20 mg PO QPM Qty: 90 3RF estradiol 1 mg tablet 1 mg PO QAM Qty: 90 3RF pen needle, diabetic [TRUEplus Pen Needle] 31 gauge x 5/16 needle See Rx Instructions .ROUTE .COMPLEX Qty: 100 3RF Dose Instruction: USE FOR INSULIN INJECTIONS Rx Instructions: USE FOR INSULIN INJECTIONS Lantus Solostar U-100 Insulin 100 unit/mL (3 mL) insulin pen See Rx Instructions .ROUTE .COMPLEX Qty: 15 0RF Dose Instruction: ADMINISTER 40 UNITS UNDER THE SKIN EVERY EVENING Rx Instructions: ADMINISTER 40 UNITS UNDER THE SKIN EVERY EVENING (DME) insulin syringe,safetyneedle [Assure ID Insulin Safety] 0.5 mL 29 gauge x 1/2 syringe See Dose Instructions .ROUTE .MEDSUPPLY Qty: 500 0RF Dose Instruction: As directed Rx Instructions: As directed dulaglutide 1.5 mg/0.5 mL pen injector 1.5 mg SUBCUT QWEEK Qty: 2 3RF (DME) disabled parking permit See Rx Instructions .ROUTE .MEDSUPPLY Qty: 1 0RF Rx Instructions: As directed. patient qualifies for disabled parking as per attached form. albuterol sulfate 90 mcg/actuation HFA aerosol inhaler 2 puff INHALATION Q6H PRN (Reason: shortness of breath or wheezing) Qty: 6.7 0RF methocarbamol [Robaxin-750] 750 mg tablet 750 mg PO Q8H PRN (Reason: jaw pain) Qty: 20 0RF ketoconazole 2 % cream 1 applic topical BID Qty: 30 0RF Rx Instructions: until resolved Referrals: Keenan Stout MD [Primary Care Provider] -
[2022-02-11 18:45] LABS: Bacteria Urine Many (>30); RBC Urine 0-1/HPF (0-5/HPF); Squamous Epithelial Cell Urine 5-10 /HPF (0-5/HPF); Transitional Epi Cells Urine 1-5/HPF (0-5/HPF); WBC Urine 5-10/HPF (0-5/HPF)
== END 2022-02-11 18:50 | disposition home or self-care (01) ==
PROVIDERS: Emergency Provider Emergency Medicine; PCP Family Medicine
DX: R11.2 Nausea with vomiting, unspecified (principal); R19.7 Diarrhea, unspecified
CPT/HCPCS: 36415; 74022; 80053; 81003; 81015; 82962; 83690; 83735; 85025; 87077; 87086; 87186; 96361; 96374; 99284; J2405

== ENCOUNTER → 2022-03-05 09:49 | Outpatient (CLI) | payer MEDICARE, SELFPAY ==
[2020-04-19 10:34] VITALS: BMI 35.5
[2022-03-05 12:06] LABS: Add Manual Diff / Slide Review NO; Basophils Absolute Auto 100 /uL (0-100); Basophils Percent Auto 0.6 % (0-2); Eosinophils Absolute Auto 100 /uL (0-450); Eosinophils Percent Auto 1.1 % (2-4); Hematocrit 44.6 % (36-46); Hemoglobin 14.4 g/dL (12.0-16.0); Lymphocytes Absolute Auto 1300 /uL (1100-4500); Lymphocytes Percent Auto 10.4 % (25-40); Mean Corpuscular HGB Conc 32.3 % (30-36); Mean Corpuscular Volume 86.9 fL (80-100); Monocytes Absolute Auto 800 /uL (0-900); Neutrophils Absolute Auto 10300 /uL (1500-7000); Neutrophils Percent Auto 81.9 % (50-75); Platelet Count 327 X10^3/uL (150-400); Red Blood Cell Count 5.13 X10^6/uL (4.0-5.2); Red Cell Distribution Width 14.8 % (11.6-14.8); White Blood Cell Count 12.5 X10^3/uL (4.5-11.0)
[2022-03-05 12:12] LABS: Hemoglobin A1C% w Est Avg Glu 7.5 % (4.0-6.0)
[2022-03-05 12:29] LABS: Alanine Aminotransferase 15 IU/L (<35); Albumin 3.8 g/dL (3.5-5.0); Albumin Globulin Ratio 1.2 (1.0-2.8); Alkaline Phosphatase 82 U/L (38-126); Aspartate Aminotransferase 16 IU/L (14-36); BUN Creatinine Ratio 18.4 (6-22); Bilirubin Total 0.4 mg/dL (0.2-1.3); Blood Urea Nitrogen 18 mg/dL (7-17); Calcium 10.5 mg/dL (8.4-10.2); Carbon Dioxide 26 mmol/L (22-32); Chloride 100 mmol/L (98-107); Estimated Glomerular Filt Rate 57 mL/min (>60); Globulin 3.2 g/dL (1.7-4.1); Glucose 207 mg/dL (80-110); HEMOLYSIS < 15 (0-50); Magnesium 1.4 mg/dL (1.6-2.3); Potassium 4.3 mmol/L (3.4-5.1); Sodium 138 mmol/L (137-145)
[2022-03-05 15:46] LABS: Appearance Urine UA SL CLOUDY; Bilirubin Urine UA NEGATIVE (NEGATIVE); Color Urine UA YELLOW; Glucose Urine UA NEGATIVE (Negative); Ketones Urine UA NEGATIVE (NEGATIVE); Leukocyte Esterase Urine UA 1+ (NEGATIVE); Nitrite Urine UA POSITIVE (Negative); Occult Blood Urine UA NEGATIVE (Negative); Protein Urine UA NEGATIVE (Negative); Specific Gravity Urine UA 1.015 (1.000-1.035); Urobilinogen Urine UA 0.2 E.U./dL (0.2)
[2022-03-05 15:48] LABS: Bacteria Urine Many (>30); Culture Indicated Urine Specimen Cultured; RBC Urine None Seen (0-5/HPF); Squamous Epithelial Cell Urine 0-1 /HPF (0-5/HPF); WBC Urine 1-5/HPF (0-5/HPF)
== END ==
PROVIDERS: PCP Family Medicine; Referring Provider Family Medicine; Visit Provider Family Medicine
DX: E11.9 Type 2 diabetes mellitus without complications (principal); E21.3 Hyperparathyroidism, unspecified; E78.2 Mixed hyperlipidemia; I10 Essential (primary) hypertension; R30.0 Dysuria
CPT/HCPCS: 36415; 80053; 81001; 83036; 83735; 85025; 87077; 87086

== ENCOUNTER → 2022-03-23 08:15 | Outpatient (CLI) | payer MEDICARE, SELFPAY ==
[2020-04-19 10:34] VITALS: BMI 35.5
[2022-03-23 09:10] LABS: Appearance Urine UA SL CLOUDY; Bilirubin Urine UA NEGATIVE (NEGATIVE); Color Urine UA YELLOW; Glucose Urine UA NEGATIVE (Negative); Ketones Urine UA NEGATIVE (NEGATIVE); Leukocyte Esterase Urine UA TRACE (NEGATIVE); Nitrite Urine UA POSITIVE (Negative); Occult Blood Urine UA NEGATIVE (Negative); Protein Urine UA NEGATIVE (Negative); Urobilinogen Urine UA 0.2 E.U./dL (0.2)
[2022-03-23 09:23] LABS: Bacteria Urine Many (>30); Culture Indicated Urine Specimen Cultured; RBC Urine 0-1/HPF (0-5/HPF); Squamous Epithelial Cell Urine 0-1 /HPF (0-5/HPF); WBC Urine 0-1/HPF (0-5/HPF)
== END ==
PROVIDERS: PCP Family Medicine; Referring Provider Family Medicine; Visit Provider Family Medicine
DX: R32 Unspecified urinary incontinence (principal); N39.0 Urinary tract infection, site not specified
CPT/HCPCS: 81001; 87077; 87086; 87186

== ENCOUNTER → 2022-04-24 12:14 | Outpatient (CLI) | payer MEDICARE, SELFPAY ==
[2022-04-15 09:19] VITALS: BMI 35.5
[2022-04-24 12:55] LABS: Appearance Urine UA CLEAR; Bilirubin Urine UA NEGATIVE (NEGATIVE); Color Urine UA YELLOW; Glucose Urine UA NEGATIVE (Negative); Ketones Urine UA NEGATIVE (NEGATIVE); Leukocyte Esterase Urine UA 2+ (NEGATIVE); Nitrite Urine UA POSITIVE (Negative); Occult Blood Urine UA NEGATIVE (Negative); Protein Urine UA NEGATIVE (Negative); Specific Gravity Urine UA 1.015 (1.000-1.035); Urobilinogen Urine UA 0.2 E.U./dL (0.2)
[2022-04-24 13:19] LABS: Bacteria Urine Many (>30); Culture Indicated Urine Specimen Cultured; RBC Urine 0-1/HPF (0-5/HPF); Squamous Epithelial Cell Urine 1-5 /HPF (0-5/HPF); WBC Urine >100/HPF (0-5/HPF)
== END ==
PROVIDERS: PCP Family Medicine; Referring Provider Family Medicine; Visit Provider Family Medicine
DX: R39.9 Unspecified symptoms and signs involving the genitourinary system (principal); R41.82 Altered mental status, unspecified
CPT/HCPCS: 81001; 87077; 87086; 87186

== ENCOUNTER → 2022-04-30 13:09 | Outpatient (CLI) | payer MEDICARE, SELFPAY ==
[2022-04-15 09:19] VITALS: BMI 35.5
== END ==
PROVIDERS: PCP Family Medicine; Visit Provider Urology
DX: N39.0 Urinary tract infection, site not specified (principal); R32 Unspecified urinary incontinence
CPT/HCPCS: 87086

== ENCOUNTER → 2022-04-30 13:51 | Outpatient (CLI) | payer MEDICARE, SELFPAY ==
[2022-04-30 13:39] VITALS: BMI 35.5
[2022-04-30 15:46] LABS: BUN Creatinine Ratio 17.8 (6-22); Blood Urea Nitrogen 18 mg/dL (7-17); Calcium 10.8 mg/dL (8.4-10.2); Carbon Dioxide 25 mmol/L (22-32); Chloride 104 mmol/L (98-107); Estimated Glomerular Filt Rate 55 mL/min (>60); Glucose 96 mg/dL (80-110); HEMOLYSIS 16 (0-50); Potassium 4.7 mmol/L (3.4-5.1); Sodium 138 mmol/L (137-145)
== END ==
PROVIDERS: PCP Family Medicine; Referring Provider Urology; Visit Provider Urology
DX: N39.0 Urinary tract infection, site not specified (principal); N39.41 Urge incontinence; R60.0 Localized edema; Z77.22 Contact with and (suspected) exposure to environmental tobacco smoke (acute) (chronic)
CPT/HCPCS: 36415; 51798; 80048; 81002; 87086; 99214

== ENCOUNTER → 2022-05-04 10:59 | Outpatient (CLI) | payer MEDICARE, SELFPAY ==
[2022-04-30 13:39] VITALS: BMI 35.5
== END ==
PROVIDERS: PCP Family Medicine; Visit Provider Urology
DX: N39.0 Urinary tract infection, site not specified (principal); N39.41 Urge incontinence
CPT/HCPCS: 87077; 87086; 87186

== ENCOUNTER → 2022-05-07 10:39 | Outpatient (CLI) | payer MEDICARE, SELFPAY ==
[2022-04-30 13:39] VITALS: BMI 35.5
--- NOTE | 2022-05-07 10:41 | DI.CT.S_ITS ---
PROCEDURE: CT ABDOMEN PELVIS WO/W CON INDICATIONS: Recurring urinary tract infections/secondhand smoke exposure TECHNIQUE: Optional 5 mm thick noncontrast images acquired from the diaphragm to the symphysis pubis. After the administration of intravenous contrast, 5 mm thick images acquired from the diaphragm to the symphysis pubis after a 10-minute delay. 2 mm thick coronal and sagittal reformats were then performed of the kidneys and ureters. For radiation dose reduction, the following was used: automated exposure control, adjustment of mA and/or kV according to patient size. COMPARISON: [facility], CT, ABDOMEN/PELVIS WITH CONTRAST, 04/20/2012, 9:51. FINDINGS: Image quality: Excellent. Lung bases: Lung bases are clear. Heart size is normal. Urinary system: Both kidneys are normal in size, without hydronephrosis or nephrolithiasis on pre-contrast images. No perinephric fat stranding. There is normal bilateral renal enhancement. Renal calyces appear normal in morphology when filled with contrast. Opacified portions of both ureters demonstrate normal caliber. There may be a 1.3 cm nodule in the left bladder base, suspicious for uroepithelial neoplasm Bladder wall is mildly thickened. No calcified bladder stones. Other solid organs: Liver is normal in size. Multiple low-density nodules in liver are compatible with hepatic cysts although some lesions are too small to further characterize, therefore, indeterminate. Gallbladder is normal . Biliary system is non dilated. Pancreas enhances normally. Spleen is normal in size and enhancement. No adrenal nodules. Peritoneum and bowel: Bowel loops demonstrate normal wall thickness and caliber. Extensive colonic diverticulosis. No CT findings to suggest acute diverticulitis. Normal appendix. No free fluid or air. Nodes and vessels: No retroperitoneal or mesenteric adenopathy by size criteria. Aorta and inferior vena cava are normal in size. Abdominal wall: Small fat containing umbilical hernia. Pelvis: No pathologic free pelvic fluid. No inguinal hernias or adenopathy. Bones: There is grade 1 anterolisthesis of L4 on L5 and trace retrolisthesis of T12 on L1 and L1 on L2. 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 No suspicious bony lesions. No vertebral body compression fractures. IMPRESSION: 1. There may be a 1.3 cm soft tissue nodule in the left posterior wall of the urinary bladder. A differential diagnosis is artifact. Recommend cystoscopy for further evaluation to rule out uroepithelial neoplasm. 2. Mild bladder wall thickening suggesting cystitis. 3. Diverticulosis. No CT findings to suggest acute diverticulitis. 4. Multiple hepatic cysts. Dictated by: Pankaj Flower M.D. on 05/08/2022 at 9:35 Approved by: Pankaj Flower M.D. on 05/08/2022 at 9:58
== END ==
PROVIDERS: PCP Family Medicine; Referring Provider Urology; Visit Provider Urology
DX: N39.0 Urinary tract infection, site not specified (principal); K57.90 Diverticulosis of intestine, part unspecified, without perforation or abscess without bleeding; K76.89 Other specified diseases of liver; Z77.22 Contact with and (suspected) exposure to environmental tobacco smoke (acute) (chronic)
CPT/HCPCS: 74178; Q9967

== ENCOUNTER 2022-05-09 13:02 | Emergency (ER) | payer MEDICARE, SELFPAY ==
[2022-04-30 13:39] VITALS: BMI 35.5
[2022-05-09] VITALS (12 sets, daily range): BP systolic 133–164; BP diastolic 65–85; PULSE 65–85; RESP 16–24; TEMP 36.6; O2SAT 95–97; BMI 32.3
[2022-05-09 14:11] LABS: Add Manual Diff / Slide Review NO; Basophils Absolute Auto 100 /uL (0-100); Basophils Percent Auto 0.8 % (0-2); Eosinophils Absolute Auto 200 /uL (0-450); Eosinophils Percent Auto 1.9 % (2-4); Hematocrit 42.9 % (36-46); Hemoglobin 13.9 g/dL (12.0-16.0); Lymphocytes Absolute Auto 1400 /uL (1100-4500); Mean Corpuscular HGB Conc 32.4 % (30-36); Mean Corpuscular Hemoglobin 28.1 PG (26-34); Mean Corpuscular Volume 86.6 fL (80-100); Monocytes Absolute Auto 700 /uL (0-900); Monocytes Percent Auto 7.7 % (3-14); Neutrophils Absolute Auto 7100 /uL (1500-7000); Neutrophils Percent Auto 74.6 % (50-75); Platelet Count 276 X10^3/uL (150-400); Red Blood Cell Count 4.96 X10^6/uL (4.0-5.2); Red Cell Distribution Width 15.4 % (11.6-14.8); White Blood Cell Count 9.6 X10^3/uL (4.5-11.0)
[2022-05-09 14:19] LABS: Alanine Aminotransferase 14 IU/L (<35); Albumin 3.9 g/dL (3.5-5.0); Albumin Globulin Ratio 1.3 (1.0-2.8); Alkaline Phosphatase 64 U/L (38-126); Aspartate Aminotransferase 20 IU/L (14-36); Bilirubin Total 0.4 mg/dL (0.2-1.3); Blood Urea Nitrogen 13 mg/dL (7-17); Calcium 10.5 mg/dL (8.4-10.2); Carbon Dioxide 25 mmol/L (22-32); Chloride 100 mmol/L (98-107); Estimated Glomerular Filt Rate > 60 mL/min (>60); Globulin 3.1 g/dL (1.7-4.1); Glucose 98 mg/dL (80-110); HEMOLYSIS 46 (0-50); Potassium 4.5 mmol/L (3.4-5.1); Sodium 134 mmol/L (137-145)
[2022-05-09 15:38] LABS: Appearance Urine UA CLEAR; Bilirubin Urine UA NEGATIVE (NEGATIVE); Color Urine UA YELLOW; Glucose Urine UA NEGATIVE (Negative); Ketones Urine UA NEGATIVE (NEGATIVE); Leukocyte Esterase Urine UA 1+ (NEGATIVE); Nitrite Urine UA POSITIVE (Negative); Occult Blood Urine UA NEGATIVE (Negative); Protein Urine UA NEGATIVE (Negative); Specific Gravity Urine UA <=1.005 (1.000-1.035); Urobilinogen Urine UA 0.2 E.U./dL (0.2)
[2022-05-09 15:47] LABS: Amorphous Sediment Urine 1+; Bacteria Urine Many (>30); RBC Urine None Seen (0-5/HPF); Squamous Epithelial Cell Urine 1-5 /HPF (0-5/HPF); WBC Urine 5-10/HPF (0-5/HPF)
--- NOTE | 2022-05-09 16:35 | ED.NEUROSD ---
HPI - Neuro Symptoms/Deficit General Chief Complaint: Neuro Symptoms/Deficit Stated Complaint: Woke up and didn't know where she was at Time Seen by Provider: 05/09/22 16:34 Source: patient Mode of arrival: Ambulatory Limitations: no limitations History of Present Illness HPI Narrative: This is a 86-year-old female history of type 2 diabetes dyslipidemia, hypertension, obstructive sleep apnea, chronic bronchitis, cognitive impairment and hypothyroidism who has had prior strokes and has recurrent UTIs that are typically E coli and have had varying resistance. Patient presents today she is had hallucinations according to her daughter intermittently since February she states that she seems to get better when her UTIs are treated it comes back when she gets a new 1. She has not had fevers or chills, no cold cough or congestion. No chest pain, no shortness of breath, no abdominal pain. She is had some mild nausea but no vomiting. No new dysuria, urgency or frequency. She is occasionally has diarrhea once or twice a day but not persistently and alternates with constipation. Patient states she is not thinking quite right her daughter states she was thinking that they were in places like [place] and also singing that someone tachycardic. Patient is able to participate in exam fairly appropriately and notes that things are off. She has seen Dr. Pereira for Urology she had a CT abdomen pelvis ordered on 05/07 they had not had the results but it shows a 1.3 cm nodule in the left bladder base suspicious for urothelial neoplasm versus artifact and cystoscopies been recommended. She has follow-up on the April with Dr. Pereira. Patient has a culture from 2 2 which was negative, to 6 had sensitivities to Macrobid but has had other cultures that were resistant to Macrobid. Majority have been E coli she is had 1 Enterococcus in 2019. On Anticoagulants: No Related Data Previous Rx's Medication Instructions Recorded insulin syringe,safetyneedle 0.5 #500 ea 04/13/18 mL 29 gauge x 1/2 (Assure ID Insulin Safety) miscellaneous medical supply #1 ea 03/02/19 disabled parking permit #1 ea 02/09/20 blood sugar diagnostic (Glucocard See Rx Instructions .Route 12/23/20 Expression strips) .COMPLEX #100 ea metformin 1,000 mg tablet 1,000 mg PO BIDCC #180 tabs 06/30/21 furosemide 20 mg tablet 20 mg PO DAILY #90 tabs 07/28/21 furosemide 20 mg tablet See Rx Instructions .Route 07/28/21 .COMPLEX #90 tabs losartan 25 mg tablet 25 mg PO DAILY #90 tabs 09/05/21 dulaglutide 1.5 mg/0.5 mL 1.5 mg (0.5 mL) SUBCUT QWEEK #2 mL 09/22/21 subcutaneous pen injector amlodipine 10 mg tablet 10 mg PO DAILY #90 tabs 11/17/21 donepezil 5 mg tablet 5 mg PO BEDTIME #90 tabs 11/17/21 estradiol 1 mg tablet 1 mg PO QAM #90 tabs 11/17/21 levothyroxine 50 mcg tablet See Rx Instructions .Route 11/17/21 .COMPLEX #90 tabs lovastatin 20 mg tablet 20 mg PO QPM #90 tabs 11/17/21 pen needle, diabetic 31 gauge x See Rx Instructions .Route 11/21/21 5/16 (TRUEplus Pen Needle) .COMPLEX #100 ea insulin glargine 100 unit/mL (3 See Rx Instructions .Route 02/12/22 mL) subcutaneous pen (Lantus .COMPLEX #15 mL Solostar U-100 Insulin) blood-glucose meter,continuous #1 ea 02/13/22 (Dexcom G6 Grain [employer] Yeast Plants Supervisor) blood-glucose sensor (Dexcom G6 #3 ea 02/13/22 Sensor device) blood-glucose transmitter (Dexcom #1 ea 02/13/22 G6 Transmitter device) cefpodoxime 100 mg tablet 200 mg PO BID #20 tabs 04/24/22 nitrofurantoin 100 mg PO BID #20 caps 05/06/22 monohydrate/macrocrystals 100 mg capsule cephalexin 500 mg capsule 500 mg PO BID 7 days #14 caps 05/09/22 Allergies Allergy/AdvReac Type Severity Reaction Status Date / Time penicillin G [PENICILLIN G] Allergy Intermediate Hives Verified 04/30/22 13:29 Review of Systems Review of Systems ROS Unobtainable: All systems reviewed & are unremarkable except as noted in HPI and below Hematologic/Lymphatic On Anticoagulants: No Patient History Medical History Cataract (~2014) Cellulitis Contusion of rib on right side Contusion of right shoulder CVA (cerebral vascular accident) CVA, old, alterations of sensations Diabetes mellitus (~1996) Eczema (~2013) Excessive daytime sleepiness Foot pain (~1962) Fractures (~1962) Hepatitis C (~1948) History of asthma Hyperparathyroidism Hypoxemia Infection of fingernail of left hand Laceration of hand Lower extremity edema Nocturnal hypoxemia Obesity (BMI 30-39.9) Obstructive sleep apnea of adult (~08/2018) Recurrent urinary tract infection Secondhand smoke exposure Shortness of breath Swelling of left hand Urge incontinence UTI (urinary tract infection) Surgical History Anesthesia History of knee replacement Personal history of spine surgery (~2003) Personal history of spine surgery (~2005) Family History Brother No problems noted. Father No problems noted. Mother No problems noted. Daughter Diabetes mellitus Hypertension Thyroid condition Son Diabetes mellitus Social History household members: family Smoking Status: Never smoker alcohol intake: never caffeine: Yes Smoking Status: Never smoker alcohol intake frequency: 0-2 drinks per day Substance Use Type: does not use Exam Narrative Exam Narrative: GENERAL: Alert and oriented x three, elderly female in mild distress patient is able to answer questions pretty appropriately not actively hallucinating at the moment. HEENT: Head normocephalic, atraumatic, EOMI, pupils reactive, face symmetric, moist mucous membranes NECK: Supple, full range of motion CARDIOVASCULAR: Regular rate and rhythm without murmurs, rubs or gallops. RESPIRATORY: Breath sounds equal bilaterally, no wheezes rales or rhonchi. ABDOMEN: Soft, nontender. Normoactive bowel sounds all 4 quadrants. No guarding or rebound, rigidity, no mass : No CVA tenderness EXTREMITIES: Normal range of motion, no clubbing or edema. Neurovascularly intact NEUROLOGICAL: Cranial nerves II through XII grossly intact. Moving all extremities SKIN: Warm, dry, no petechiae, no rashes or lesions. Initial Vital Signs Initial Vital Signs: Vital Signs Pulse Rate 85 05/09/22 13:19 Blood Pressure 142/85 H 05/09/22 13:19 Pulse Oximetry 95 05/09/22 13:19 Course Orders Ordered: ED Orders 05/09/22 14:00 CMP [Comprehensive Metabolic Panel] Stat Complete Blood Count AUTO DIFF Stat 05/09/22 15:23 Urinalysis and Microscopic Stat Urine Culture Stat Discontinued Medications Cephalexin HCl (Cephalexin 250 Mg Capsule) 500 mg PO NOW ONE Stop: 05/09/22 17:14 Last Admin: 05/09/22 17:28 Dose: 500 mg Documented By: AMBROSIO Vital Signs Vital signs: Vital Signs - 8 hr 05/09/22 13:55 05/09/22 13:19 05/09/22 13:19 Temperature 97.9 F Pulse Rate 82 85 Respiratory Rate 19 Blood Pressure 142/85 H 142/85 H Pulse Oximetry 96 95 Oxygen Delivery Method Room Air 05/09/22 13:30 05/09/22 13:30 05/09/22 13:49 Temperature Pulse Rate 82 73 Respiratory Rate 24 Blood Pressure 142/80 H Pulse Oximetry 96 97 Oxygen Delivery Method 05/09/22 13:49 05/09/22 14:00 05/09/22 14:00 Temperature Pulse Rate 70 Respiratory Rate 22 Blood Pressure 145/75 H 150/74 H Pulse Oximetry 96 Oxygen Delivery Method 05/09/22 14:30 05/09/22 14:30 05/09/22 15:00 Temperature Pulse Rate 67 Respiratory Rate 16 Blood Pressure 144/72 H 138/68 Pulse Oximetry 97 Oxygen Delivery Method 05/09/22 15:00 05/09/22 15:30 05/09/22 15:30 Temperature Pulse Rate 65 78 Respiratory Rate 17 20 Blood Pressure 163/78 H Pulse Oximetry 96 95 Oxygen Delivery Method 05/09/22 16:00 05/09/22 16:01 05/09/22 16:01 Temperature Pulse Rate 75 75 Respiratory Rate 22 20 Blood Pressure 164/78 H Pulse Oximetry 96 96 Oxygen Delivery Method 05/09/22 16:30 05/09/22 16:30 05/09/22 17:00 Temperature Pulse Rate 72 Respiratory Rate 24 Blood Pressure 146/72 H 133/65 Pulse Oximetry 95 Oxygen Delivery Method 05/09/22 17:00 Temperature Pulse Rate 69 Respiratory Rate 16 Blood Pressure Pulse Oximetry 95 Oxygen Delivery Method MDM - Neuro Symptoms/Deficit Lab Data 05/09/22 14:00 05/09/22 14:00 Labs: Lab Results 05/09/22 05/09/22 05/09/22 Range/Units 14:00 14:00 15:23 WBC 9.6 (4.5-11.0) X10^3/uL RBC 4.96 (4.0-5.2) X10^6/uL Hgb 13.9 (12.0-16.0) g/dL Hct 42.9 (36-46) % MCV 86.6 (80-100) fL MCH 28.1 (26-34) PG MCHC 32.4 (30-36) % RDW 15.4 H (11.6-14.8) % Plt Count 276 (150-400) X10^3/uL Neut % (Auto) 74.6 (50-75) % Lymph % (Auto) 15.0 L (25-40) % [place] % (Auto) 7.7 (3-14) % Eos % (Auto) 1.9 L (2-4) % Baso % (Auto) 0.8 (0-2) % Neut # (Auto) 7100 H (7090-0966) /uL Lymph # (Auto) 1400 (1561-1839) /uL [place] # (Auto) 700 (0-900) /uL Eos # (Auto) 200 (0-450) /uL Baso # (Auto) 100 (0-100) /uL Sodium 134 L (137-145) mmol/L Potassium 4.5 (3.4-5.1) mmol/L Chloride 100 (98-107) mmol/L Carbon Dioxide 25 (22-32) mmol/L BUN 13 (7-17) mg/dL Creatinine 0.81 (0.52-1.04) mg/dL Estimated GFR > 60 (>60) mL/min BUN/Creatinine Ratio 16.0 (6-22) Glucose 98 (80-110) mg/dL Calcium 10.5 H (8.4-10.2) mg/dL Total Bilirubin 0.4 (0.2-1.3) mg/dL AST 20 (14-36) IU/L ALT 14 (<35) IU/L Alkaline Phosphatase 64 (38-126) U/L Total Protein 7.0 (6.3-8.2) g/dL Albumin 3.9 (3.5-5.0) g/dL Globulin 3.1 (1.7-4.1) g/dL Albumin/Globulin Ratio 1.3 (1.0-2.8) Urine Color Yellow Urine Appearance Clear Urine pH 7.0 (4.5-8.0) Ur Specific [place] <=1.005 (1.000-1.035) Urine Protein Negative (Negative) Urine Glucose (UA) Negative (Negative) g/dL Urine Ketones Negative (NEGATIVE) Urine Occult Blood Negative (Negative) Urine Nitrate Positive H (Negative) Urine Bilirubin Negative (NEGATIVE) Urine Urobilinogen 0.2 (0.2) E.U./dL Ur Leukocyte Esterase 1+ H (NEGATIVE) Urine RBC None seen (0-5/HPF) Urine WBC 5-10/hpf H (0-5/HPF) Ur Squamous Epith Cells 1-5 /hpf (0-5/HPF) Amorphous Sediment 1+ Urine Bacteria Many (>30) H (None) Imaging Data CT scan - abdomen/pelvis: Radiologist's Impression: [address] [address] [address] Scan Report Signed Patient: Isabella Lucero MR#: [id number] : 1935 Acct:[id number] Age/Sex: 86 / F Date of Service: 05/07/22 Loc: CT Accession Number: [id number] ?? Procedure: CT abdomen pelvis wo/w con Ordering Provider: Donaldo Pereira MD PROCEDURE:? CT ABDOMEN PELVIS WO/W CON ? INDICATIONS:? Recurring urinary tract infections/secondhand smoke exposure ? TECHNIQUE:? Optional 5 mm thick noncontrast images acquired from the diaphragm to the symphysis pubis.? After the administration of intravenous contrast, 5 mm thick images acquired from the diaphragm to the symphysis pubis after a 10-minute delay.? 2 mm thick coronal and sagittal reformats were then performed of the kidneys and ureters.? For radiation dose reduction, the following was used:? automated exposure control, adjustment of mA and/or kV according to patient size.? ? COMPARISON:? [facility], CT, ABDOMEN/PELVIS WITH CONTRAST, 04/20/2012, 9:51. ? FINDINGS:? Image quality:? Excellent.? ? Lung bases:? Lung bases are clear.? Heart size is normal.? ? Urinary system:? Both kidneys are normal in size, without hydronephrosis or nephrolithiasis on pre-contrast images.? No perinephric fat stranding.? There is normal bilateral renal enhancement.? Renal calyces appear normal in morphology when filled with contrast.? Opacified portions of both ureters demonstrate normal caliber.? ? There may be a 1.3 cm nodule in the left bladder base, suspicious for uroepithelial neoplasm Bladder wall is mildly thickened.? No calcified bladder stones.? ? Other solid organs:? Liver is normal in size.? Multiple low-density nodules in liver are compatible with hepatic cysts although some lesions are too small to further characterize, therefore, indeterminate.? Gallbladder is normal .? Biliary system is non dilated.? Pancreas enhances normally.? Spleen is normal in size and enhancement.? No adrenal nodules.? ? Peritoneum and bowel:? Bowel loops demonstrate normal wall thickness and caliber.? Extensive colonic diverticulosis.? No CT findings to suggest acute diverticulitis.? Normal appendix.? No free fluid or air.? ? Nodes and vessels:? No retroperitoneal or mesenteric adenopathy by size criteria.? Aorta and inferior vena cava are normal in size.? ? Abdominal wall:? Small fat containing umbilical hernia.? ? Pelvis:? No pathologic free pelvic fluid.? No inguinal hernias or adenopathy.? ? Bones:? There is grade 1 anterolisthesis of L4 on L5 and trace retrolisthesis of T12 on L1 and L1 on L2.? Moderate to severe DJD changes are noted in lumbar spine.? No suspicious bony lesions.? No vertebral body compression fractures.? IMPRESSION:? ? 1. There may be a 1.3 cm soft tissue nodule in the left posterior wall of the urinary bladder.? A differential diagnosis is artifact.? Recommend cystoscopy for further evaluation to rule out uroepithelial neoplasm. ? 2. Mild bladder wall thickening suggesting cystitis. ? 3. Diverticulosis.? No CT findings to suggest acute diverticulitis. ? 4. Multiple hepatic cysts. ? Dictated by: Pankaj Flower M.D. on 05/08/2022 at 9:35 ? ? Approved by: Pankaj Flower M.D. on 05/08/2022 at 9:58?? ECG Data Attestation: I personally reviewed and interpreted this ECG as follows: Interpretation: Normal sinus rhythm rate of 70 6p are 184 QRS 88 QTC 420. No acute ST changes appreciated patient has prior from 03/28/2019. MDM Narrative Medical decision making narrative: This is an 86-year-old female who comes emergency department with recurrent episodes of hallucination family states she does not have any memory impairment but she is on donepezil. Patient has had recurrent UTIs typically E coli most recent was on 05/04 there is not a UA but today she is nitrate positive. She showed sensitivity on 24/05 Macrobid but she has had others that did not typically sensitive to cephalosporins patient has not allergy to penicillin but has had amoxicillin and cephalexin according to her daughter without issue. Patient is pretty alert, appropriate they feel safe to return home her labs do not show major or concerning abnormalities will change her antibiotic with return precautions. Patient is to follow up with Urology discussed she is going to need cystoscopy and reviewed her CT findings from the 07 of May and that this maybe contributing or causing colonization and recurrent UTIs. Discharge Plan Departure Patient Disposition: Home Clinical Impression: Recurrent UTI, Mass of bladder Activity Restrictions/Additional Instructions: Follow-up with Dr. Pereira, your CT from May 07 does show what appears to be a mass in the bladder likely follow-up performed cystoscopy to fully evaluate this. You can stop your Macrobid please start Keflex. Your urine culture today is pending and if this shows resistance we will call to change your medications. Prescription sent to [facility] in [place]. Please return for fevers, increasing confusion, hallucinations difficulty with breathing, difficulty with urination no abdominal back or flank pain or other new or concerning changes. Prescriptions: New cephalexin 500 mg capsule 500 mg PO BID 7 Days Qty: 14 0RF No Action (DME) miscellaneous medical supply Pending Sale To [facility] See Dose Instructions .Route .MEDSUPPLY Qty: 1 0RF Dose Instruction: Disabled Parking Permit Rx Instructions: Disabled Parking Permit Glucocard Expression Strip See Rx Instructions .ROUTE .COMPLEX Qty: 100 2RF Dose Instruction: USE TO CHECK BLOOD SUGAR FROM FINGER TWICE DAILY Rx Instructions: USE TO CHECK BLOOD SUGAR FROM FINGER TWICE DAILY metformin 1,000 mg tablet 1,000 mg PO BIDCC Qty: 180 3RF furosemide 20 mg tablet 20 mg PO DAILY Qty: 90 4RF furosemide 20 mg tablet See Rx Instructions .ROUTE .COMPLEX Qty: 90 3RF Dose Instruction: TAKE 1 TABLET BY MOUTH DAILY NEEDED FOR EDEMA Rx Instructions: TAKE 1 TABLET BY MOUTH DAILY NEEDED FOR EDEMA losartan 25 mg tablet 25 mg PO DAILY Qty: 90 3RF amlodipine 10 mg tablet 10 mg PO DAILY Qty: 90 3RF donepezil 5 mg tablet 5 mg PO BEDTIME Qty: 90 3RF Rx Instructions: TAKE 1 TABLET BY MOUTH BEDTIME levothyroxine 50 mcg tablet See Rx Instructions .ROUTE .COMPLEX Qty: 90 3RF Dose Instruction: TAKE 1 TABLET (50 MCG) BY MOUTH DAILY SCHEDULE FOLLOW UP APPT. BEFORE NEXT REFILL. Rx Instructions: TAKE 1 TABLET (50 MCG) BY MOUTH DAILY SCHEDULE FOLLOW UP APPT. BEFORE NEXT REFILL. lovastatin 20 mg tablet 20 mg PO QPM Qty: 90 3RF estradiol 1 mg tablet 1 mg PO QAM Qty: 90 3RF pen needle, diabetic [TRUEplus Pen Needle] 31 gauge x 5/16 needle See Rx Instructions .ROUTE .COMPLEX Qty: 100 3RF Dose Instruction: USE FOR INSULIN INJECTIONS Rx Instructions: USE FOR INSULIN INJECTIONS Lantus Solostar U-100 Insulin 100 unit/mL (3 mL) insulin pen See Rx Instructions .ROUTE .COMPLEX Qty: 15 3RF Dose Instruction: ADMINISTER 40 UNITS UNDER THE SKIN EVERY EVENING Rx Instructions: ADMINISTER 40 UNITS UNDER THE SKIN EVERY EVENING (DME) Dexcom G6 Grain And Yeast Plants Supervisor Misc See Rx Instructions .Route Qty: 1 0RF Rx Instructions: As directed (DME) Dexcom G6 Transmitter Device See Rx Instructions .Route Qty: 1 0RF Rx Instructions: As directed (DME) Dexcom G6 Sensor Device See Rx Instructions .Route Qty: 3 0RF Rx Instructions: As directed cefpodoxime 100 mg tablet 200 mg PO BID Qty: 20 0RF Rx Instructions: must administer with a meal/food nitrofurantoin monohyd/m-cryst 100 mg capsule 100 mg PO BID Qty: 20 0RF Rx Instructions: must administer with a meal/food (DME) insulin syringe,safetyneedle [Assure ID Insulin Safety] 0.5 mL 29 gauge x 1/2 syringe See Dose Instructions .ROUTE .MEDSUPPLY Qty: 500 0RF Dose Instruction: As directed Rx Instructions: As directed dulaglutide 1.5 mg/0.5 mL pen injector 1.5 mg SUBCUT QWEEK Qty: 2 3RF (DME) disabled parking permit See Rx Instructions .ROUTE .MEDSUPPLY Qty: 1 0RF Rx Instructions: As directed. patient qualifies for disabled parking as per attached form. Referrals: Keenan Stout MD [Primary Care Provider] - Stand Alone Forms: Patient Portal/API
[2022-05-09] MEDS: cephALEXin 250 MG CAPSULE 500 MG PO (17:28)
== END 2022-05-09 17:42 | disposition home or self-care (01) ==
PROVIDERS: Emergency Provider Emergency Medicine; PCP Family Medicine
DX: N39.0 Urinary tract infection, site not specified (principal); N32.89 Other specified disorders of bladder
CPT/HCPCS: 36415; 80053; 81001; 85025; 87077; 87086; 87186; 93005; 99283; 99284

== ENCOUNTER → 2022-05-20 12:49 | Outpatient (CLI) | payer MEDICARE, SELFPAY ==
[2022-04-30 13:39] VITALS: BMI 35.5
== END ==
PROVIDERS: PCP Family Medicine; Visit Provider Urology
DX: N39.0 Urinary tract infection, site not specified (principal); N32.89 Other specified disorders of bladder; N39.41 Urge incontinence; Z77.22 Contact with and (suspected) exposure to environmental tobacco smoke (acute) (chronic)
CPT/HCPCS: 81002; 87086; 99213

== ENCOUNTER → 2022-06-12 12:06 | Outpatient (CLI) | payer MEDICARE, SELFPAY ==
[2022-05-20 13:16] VITALS: BMI 35.5
[2022-06-12 13:22] LABS: Bilirubin Urine UA NEGATIVE (NEGATIVE); Color Urine UA YELLOW; Glucose Urine UA NEGATIVE (Negative); Ketones Urine UA NEGATIVE (NEGATIVE); Leukocyte Esterase Urine UA 2+ (NEGATIVE); Nitrite Urine UA NEGATIVE (Negative); Occult Blood Urine UA 2+ (Negative); Protein Urine UA TRACE (Negative); Specific Gravity Urine UA 1.015 (1.000-1.035); Urobilinogen Urine UA 0.2 E.U./dL (0.2)
[2022-06-12 13:25] LABS: Appearance Urine UA SL CLOUDY
[2022-06-12 13:35] LABS: Amorphous Sediment Urine 1+; Bacteria Urine Many (>30); Culture Indicated Urine Specimen Cultured; Mucus Urine 1+ (Negative); RBC Urine 5-10/HPF (0-5/HPF); Squamous Epithelial Cell Urine 0-1 /HPF (0-5/HPF); WBC Urine 30-100/HPF (0-5/HPF)
== END ==
PROVIDERS: PCP Family Medicine; Referring Provider Urology; Visit Provider Urology
DX: N32.89 Other specified disorders of bladder (principal); N39.0 Urinary tract infection, site not specified; N39.41 Urge incontinence
CPT/HCPCS: 81003; 81015; 87077; 87086; 87186

== ENCOUNTER → 2022-07-02 10:10 | Outpatient (CLI) | payer MEDICARE, SELFPAY ==
[2022-05-20 13:16] VITALS: BMI 35.5
[2022-07-02 11:38] LABS: Alanine Aminotransferase 18 IU/L (<35); Albumin 3.8 g/dL (3.5-5.0); Albumin Globulin Ratio 1.2 (1.0-2.8); Alkaline Phosphatase 62 U/L (38-126); Aspartate Aminotransferase 19 IU/L (14-36); Bilirubin Total 0.4 mg/dL (0.2-1.3); Blood Urea Nitrogen 15 mg/dL (7-17); Calcium 10.1 mg/dL (8.4-10.2); Carbon Dioxide 24 mmol/L (22-32); Chloride 100 mmol/L (98-107); Cholesterol 134 mg/dL (140-199); Globulin 3.1 g/dL (1.7-4.1); Glucose 176 mg/dL (80-110); HDL Cholesterol 62 mg/dL (40-60); LDL Cholesterol Calculated 49 mg/dL (<100); Potassium 4.3 mmol/L (3.4-5.1); Sodium 132 mmol/L (137-145); Total Protein 6.9 g/dL (6.3-8.2); Triglycerides 115 mg/dL (35-150)
[2022-07-02 11:39] LABS: BUN Creatinine Ratio 15.3 (6-22); Estimated Glomerular Filt Rate 57 mL/min (>60); HEMOLYSIS 25 (0-50)
[2022-07-02 11:50] LABS: Vitamin D 25 Hydroxy (D3) 39.5 ng/mL (30.0-100.0)
[2022-07-02 11:54] LABS: Free T4, Direct Thyroxine 1.56 ng/dL (0.78-2.19)
[2022-07-02 12:08] LABS: Thyroid Stimulating Hormone 3.47 uIU/mL (0.47-4.68)
[2022-07-02 12:19] LABS: Microalbumi Creatinin Ratio Ur 10.2 ug/mg CR (<30); Microalbumin Urine Random 0.8 mg/dL (0-1.6)
[2022-07-03 06:09] LABS: Labcorp Hemoglobin (Hb) A1c 6.6 % (4.8-5.6)
[2022-07-04 10:19] LABS: Calcium 10.5 mg/dL (8.7-10.3); Parathyroid Hormone, Intact 118 pg/mL (15-65)
== END ==
PROVIDERS: PCP Family Medicine; Referring Provider Student in an Organized Health Care Education/Training Program; Visit Provider Student in an Organized Health Care Education/Training Program
DX: E11.69 Type 2 diabetes mellitus with other specified complication (principal); E83.52 Hypercalcemia; E21.5 Disorder of parathyroid gland, unspecified
CPT/HCPCS: 36415; 80053; 80061; 82043; 82306; 82310; 82570; 83036; 83970; 84439; 84443

== ENCOUNTER → 2022-07-03 12:19 | Outpatient (CLI) | payer MEDICARE, SELFPAY ==
[2022-05-20 13:16] VITALS: BMI 35.5
== END ==
PROVIDERS: PCP Family Medicine; Visit Provider Urology
DX: N39.0 Urinary tract infection, site not specified (principal); N39.41 Urge incontinence; R41.3 Other amnesia; F09 Unspecified mental disorder due to known physiological condition; N95.2 Postmenopausal atrophic vaginitis; Z77.22 Contact with and (suspected) exposure to environmental tobacco smoke (acute) (chronic)
CPT/HCPCS: 51798; 81002; 87077; 87086; 87186; 99213

== ENCOUNTER → 2022-07-17 11:40 | Outpatient (CLI) | payer MEDICARE, SELFPAY ==
[2022-05-20 13:16] VITALS: BMI 35.5
[2022-07-17 14:24] LABS: Appearance Urine UA CLEAR; Bilirubin Urine UA NEGATIVE (NEGATIVE); Color Urine UA YELLOW; Glucose Urine UA NEGATIVE (Negative); Ketones Urine UA NEGATIVE (NEGATIVE); Leukocyte Esterase Urine UA 1+ (NEGATIVE); Nitrite Urine UA NEGATIVE (Negative); Occult Blood Urine UA NEGATIVE (Negative); Protein Urine UA NEGATIVE (Negative); Urobilinogen Urine UA 0.2 E.U./dL (0.2)
[2022-07-17 14:35] LABS: Amorphous Sediment Urine 1+; Bacteria Urine Occasional (0-1); RBC Urine None Seen (0-5/HPF); Squamous Epithelial Cell Urine 1-5 /HPF (0-5/HPF); WBC Urine 5-10/HPF (0-5/HPF); pH Urine UA 6.5 (4.5-8.0)
[2022-07-17 14:36] LABS: Culture Indicated Urine Specimen Cultured
== END ==
PROVIDERS: PCP Family Medicine; Referring Provider Urology; Visit Provider Urology
DX: N39.0 Urinary tract infection, site not specified (principal); N39.41 Urge incontinence
CPT/HCPCS: 81001; 87086

== ENCOUNTER → 2022-09-08 08:06 | Outpatient (CLI) | payer MEDICARE, SELFPAY ==
[2022-05-20 13:16] VITALS: BMI 35.5
[2022-09-08 10:07] LABS: Appearance Urine UA CLEAR; Bilirubin Urine UA NEGATIVE (NEGATIVE); Color Urine UA YELLOW; Glucose Urine UA NEGATIVE (Negative); Ketones Urine UA NEGATIVE (NEGATIVE); Leukocyte Esterase Urine UA 1+ (NEGATIVE); Nitrite Urine UA POSITIVE (Negative); Occult Blood Urine UA NEGATIVE (Negative); Protein Urine UA NEGATIVE (Negative); Urobilinogen Urine UA 0.2 E.U./dL (0.2)
[2022-09-08 10:31] LABS: Bacteria Urine Many (>30); RBC Urine None Seen (0-5/HPF); Squamous Epithelial Cell Urine 10-30 /HPF (0-5/HPF); WBC Urine 5-10/HPF (0-5/HPF)
[2022-09-08 10:32] LABS: Culture Indicated Urine Cult Not Indicated
== END ==
PROVIDERS: PCP Family Medicine; Referring Provider Family Medicine; Visit Provider Family Medicine
DX: N39.41 Urge incontinence (principal)
CPT/HCPCS: 81001

== ENCOUNTER → 2022-10-08 07:26 | Outpatient (CLI) | payer MEDICARE, SELFPAY ==
[2022-05-20 13:16] VITALS: BMI 35.5
[2022-10-08 08:02] LABS: Appearance Urine UA SL CLOUDY; Bilirubin Urine UA NEGATIVE (NEGATIVE); Color Urine UA YELLOW; Glucose Urine UA NEGATIVE (Negative); Ketones Urine UA NEGATIVE (NEGATIVE); Leukocyte Esterase Urine UA TRACE (NEGATIVE); Nitrite Urine UA POSITIVE (Negative); Occult Blood Urine UA NEGATIVE (Negative); Protein Urine UA NEGATIVE (Negative); Specific Gravity Urine UA <=1.005 (1.000-1.035); Urobilinogen Urine UA 0.2 E.U./dL (0.2)
[2022-10-08 08:12] LABS: Bacteria Urine Few (2-10); Culture Indicated Urine Specimen Cultured; RBC Urine None Seen (0-5/HPF); Squamous Epithelial Cell Urine 0-1 /HPF (0-5/HPF); WBC Urine 0-1/HPF (0-5/HPF)
== END ==
PROVIDERS: PCP Family Medicine; Referring Provider Family Medicine; Visit Provider Family Medicine
DX: R44.3 Hallucinations, unspecified (principal); N39.0 Urinary tract infection, site not specified; N95.2 Postmenopausal atrophic vaginitis; F09 Unspecified mental disorder due to known physiological condition; Z77.22 Contact with and (suspected) exposure to environmental tobacco smoke (acute) (chronic)
CPT/HCPCS: 81001; 87086; 99213

== ENCOUNTER → 2023-01-13 15:05 | Outpatient (CLI) | payer MEDICARE, SELFPAY ==
[2022-05-20 13:16] VITALS: BMI 35.5
[2023-01-13 18:19] LABS: Appearance Urine UA CLOUDY; Bilirubin Urine UA NEGATIVE (NEGATIVE); Color Urine UA YELLOW; Glucose Urine UA NEGATIVE (Negative); Ketones Urine UA NEGATIVE (NEGATIVE); Leukocyte Esterase Urine UA 1+ (NEGATIVE); Nitrite Urine UA POSITIVE (Negative); Occult Blood Urine UA NEGATIVE (Negative); Protein Urine UA NEGATIVE (Negative)
[2023-01-13 18:39] LABS: Bacteria Urine Many (>30); RBC Urine 0-1/HPF (0-5/HPF); WBC Urine 1-5/HPF (0-5/HPF); pH Urine UA 6.5 (4.5-8.0)
[2023-01-13 18:40] LABS: Culture Indicated Urine Specimen Cultured; Squamous Epithelial Cell Urine 5-10 /HPF (0-5/HPF)
== END ==
PROVIDERS: PCP Family Medicine; Referring Provider Family Medicine; Visit Provider Family Medicine
DX: N39.0 Urinary tract infection, site not specified (principal); N39.41 Urge incontinence; R41.3 Other amnesia
CPT/HCPCS: 81001; 87077; 87086; 87186

== ENCOUNTER 2023-01-18 17:30 | Emergency (ER) | payer MEDICARE, SELFPAY ==
[2022-05-20 13:16] VITALS: BMI 35.5
[2023-01-18] VITALS (18 sets, daily range): BP systolic 96–128; BP diastolic 52–64; PULSE 66–114; RESP 11–21; TEMP 36.5; O2SAT 95–99; BMI 29.0
--- NOTE | 2023-01-18 17:40 | DI.RAD.S_ITS ---
PROCEDURE: XR CHEST 1V INDICATIONS: suspected sepsis TECHNIQUE: One view of the chest was acquired. COMPARISON: [facility], CR, XR CHEST 2V, 02/17/2021, 15:35. [facility], CR, XR CHEST 1V, 03/30/2019, 10:02. FINDINGS: Surgical changes and devices: None. Lungs and pleura: Lungs are clear. Likely linear atelectasis at the left base. No pleural effusions or pneumothorax. Mediastinum: Mediastinal contours appear normal. Heart size is normal. Bones and chest wall: No suspicious bony lesions. Overlying soft tissues appear unremarkable. IMPRESSION: No acute cardiopulmonary process. Dictated by: Ike Storey M.D. on 01/18/2023 at 18:01 Approved by: Ike Storey M.D. on 01/18/2023 at 18:01
--- NOTE | 2023-01-18 18:08 | ED_ITS ---
HPI - Altered Mental Status General Chief Complaint: Altered Mental Status Stated Complaint: states has UTI Time Seen by Provider: 01/18/23 17:59 Source: patient Mode of arrival: EMS History of Present Illness HPI narrative: 87-year-old female with history of prior UTIs, urge continence presents with hallucinations over the past few days. She was seen and evaluated on Wednesday and diagnosed with a UTI. She has been taking cefdinir since Wednesday. She states that she was not having any classic symptoms such as burning, frequency or urgency prior to the visit but had been having hallucinations and her daughter (at the bedside) states that this is frequently how she acts in the setting of a UTI. Their concerns were confirmed at the visit and she is been on medications as stated. She denies any headache or blurred vision, no runny nose, sore throat or cough. No chest pain, shortness of breath, nausea, vomiting or abdominal pain. She does frequently have loose stools which are no worse than normal. Related Data Home Medications Medication Instructions Recorded Confirmed cranberry PO 10/08/22 10/08/22 Previous Rx's Medication Instructions Recorded insulin syringe,safetyneedle 0.5 #500 ea 04/13/18 mL 29 gauge x 1/2 (Assure ID Insulin Safety) miscellaneous medical supply #1 ea 03/02/19 disabled parking permit #1 ea 02/09/20 blood sugar diagnostic (Glucocard See Rx Instructions .Route 12/23/20 Expression strips) .COMPLEX #100 ea losartan 25 mg tablet 25 mg PO DAILY #90 tabs 09/05/21 dulaglutide 1.5 mg/0.5 mL 1.5 mg (0.5 mL) SUBCUT QWEEK #2 mL 09/22/21 subcutaneous pen injector pen needle, diabetic 31 gauge x See Rx Instructions .Route 11/21/2108/11 (TRUEplus Pen Needle) .COMPLEX #100 ea blood-glucose meter,continuous #1 ea 02/13/22 (Dexcom G6 Outpatient Admitting Clerk) blood-glucose sensor (Dexcom G6 #3 ea 02/13/22 Sensor device) blood-glucose transmitter (Dexcom #1 ea 02/13/22 G6 Transmitter device) memantine 10 mg tablet (Namenda) 10 mg PO BID #180 tabs 06/01/22 cefdinir 300 mg capsule 300 mg PO BID #20 caps 10/08/22 loperamide 2 mg capsule (Imodium 2 mg PO QID PRN loose stool #60 10/26/22 A-D) caps metformin 1,000 mg tablet 1,000 mg PO BIDCC #180 tabs 10/27/22 insulin glargine 100 unit/mL (3 40 unit (0.4 mL) SUBCUT QPM #15 mL 11/27/22 mL) subcutaneous pen (Lantus Solostar U-100 Insulin) estradiol 1 mg tablet 1 mg PO QAM #90 tabs 12/01/22 levothyroxine 50 mcg tablet See Rx Instructions .Route 12/01/22 .COMPLEX #90 tabs lovastatin 20 mg tablet 20 mg PO QPM #90 tabs 12/07/22 amlodipine 10 mg tablet 10 mg PO DAILY #90 tabs 01/05/23 donepezil 5 mg tablet 5 mg PO BEDTIME #90 tabs 01/05/23 furosemide 20 mg tablet See Rx Instructions .Route 01/05/23 .COMPLEX #90 tabs cefdinir 300 mg capsule 300 mg PO BID #20 caps 01/14/23 Allergies Allergy/AdvReac Type Severity Reaction Status Date / Time penicillin G [PENICILLIN G] Allergy Intermediate Hives Verified 07/03/22 11:44 Review of Systems Review of Systems Narrative: GENERAL: See HPI HEENT: Denies sinus pain, ear pain, sore throat, difficulty swallowing, dizziness. RESPIRATORY: Denies dyspnea, cough, wheezing, hemoptysis, sputum. CARDIOVASCULAR: Denies chest pain, palpitations, orthopnea, edema, GASTROINTESTINAL: See HPI : Denies dysuria, frequency, incontinence, hematuria, urinary retention. MUSCULOSKELETAL: denies weakness, joint pain, or bony pain SKIN: Denies rash, skin lesions, or other NEUROLOGIC: See HPI PSYCHIATRIC: No concerning psychosocial issues. 12 point review of systems is negative except for those stated above Patient History Medical History Atrophic vaginitis Cognitive dysfunction Urge incontinence Secondhand smoke exposure Recurrent urinary tract infection History of asthma Lower extremity edema Hyperparathyroidism Swelling of left hand Obesity (BMI 30-39.9) Infection of fingernail of left hand Laceration of hand Shortness of breath Hypoxemia UTI (urinary tract infection) CVA, old, alterations of sensations Nocturnal hypoxemia Obstructive sleep apnea of adult (~08/2018) Excessive daytime sleepiness CVA (cerebral vascular accident) Fractures (~1962) Foot pain (~1962) Eczema (~2013) Hepatitis C (~194) Cataract (~2014) Diabetes mellitus (~1996) Contusion of rib on right side Contusion of right shoulder Cellulitis Surgical History History of knee replacement Anesthesia Personal history of spine surgery (~2005) Personal history of spine surgery (~2003) Family History Brother No problems noted. Father No problems noted. Mother No problems noted. Daughter Diabetes mellitus Hypertension Thyroid condition Son Diabetes mellitus Social History household members: family Smoking Status: Never smoker alcohol intake: never caffeine: Yes Smoking Status: Never smoker alcohol intake frequency: 0-2 drinks per day Substance Use Type: does not use Exam Narrative Exam Narrative: GENERAL: [87] year old patient appears stated age. Well-developed patient, in mild distress. GCS 14 (pleasantly confused) HEAD: Atraumatic. Normocephalic. EYES: Pupils equal round and reactive. Extraocular motions intact. No scleral icterus. No injection or drainage. ENT: Nose without bleeding, purulent drainage. Throat without erythema, tonsillar hypertrophy or exudate. Airway patent. NECK: Trachea midline. Non tender CARDIOVASCULAR: Regular rate and rhythm without murmurs, gallops, or rubs. RESPIRATORY: Clear to auscultation. Breath sounds equal bilaterally. No wheezes, rales, or rhonchi. GASTROINTESTINAL: Abdomen soft, non-tender, nondistended. EXTREMITIES: No edema or joint tenderness. BACK: Nontender without deformity or crepitance. No flank tenderness. NEURO: Cranial nerves 2-12 grossly intact SKIN: No rash or erythema of visible areas Initial Vital Signs Initial Vital Signs: Vital Signs Temperature 97.7 F 01/18/23 17:35 Pulse Rate 114 H 01/18/23 17:35 Respiratory Rate 18 01/18/23 17:35 Blood Pressure 96/64 01/18/23 17:35 Pulse Oximetry 96 01/18/23 17:35 Oxygen Delivery Method Room Air 01/18/23 17:35 Course Orders Ordered: ED Orders 01/18/23 17:40 XR chest 1V Stat EKG-12 Lead Stat RT Consult Eval and Treat NOW 01/18/23 18:03 Complete Blood Count AUTO DIFF Stat Comprehensive Metabolic Panel Stat Lactate (Lactic Acid) Stat Lipase Stat PTT Partial Thromboplastin Jerod Stat Procalcitonin Stat Prothrombin Time INR Stat 01/18/23 18:24 Blood Culture Stat 01/18/23 21:20 Urinalysis and Microscopic Stat Urine Culture Stat Discontinued Medications Sodium Chloride (Normal Saline 0.9%) 1,000 mls @ 1,000 mls/hr IV BOLUS ONE Stop: 01/18/23 18:39 Last Infusion: 01/18/23 19:32 Dose: Infused Documented By: Admin: 01/18/23 18:32 Dose: 1,000 mls/hr Documented By: SALENA Ceftriaxone Sodium 2,000 mg/ (Sodium Chloride) 100 mls @ 200 mls/hr IV NOW ONE Stop: 01/18/23 18:05 Last Infusion: 01/18/23 19:01 Dose: Infused Documented By: Admin: 01/18/23 18:31 Dose: 200 mls/hr Documented By: SALENA Sodium Chloride (Normal Saline 0.9%) 2,449.41 mls @ 816.47 mls/hr 30 ml/kg infuse over 3 hr (2449.41 ml) IV NOW ONE Stop: 01/18/23 22:05 Last Infusion: 01/18/23 21:57 Dose: Infused Documented By: Admin: 01/18/23 19:58 Dose: 816.47 mls/hr Documented By: SALENA Ondansetron HCl (Ondansetron 4 Mg/2 Ml Inj) 4 mg IV NOW PRN PRN Reason: Nausea And Vomiting Ondansetron HCl (Ondansetron 4 Mg Odt) 4 mg SL NOW PRN PRN Reason: Nausea And Vomiting Vital Signs Vital signs: Vital Signs - 8 hr 01/18/23 18:30 01/18/23 18:30 01/18/23 18:45 Pulse Rate 104 H Respiratory Rate 18 Blood Pressure 121/61 116/56 L Pulse Oximetry 95 01/18/23 18:45 01/18/23 19:00 01/18/23 19:00 Pulse Rate 86 82 Respiratory Rate 14 14 Blood Pressure 117/60 Pulse Oximetry 95 95 01/18/23 19:15 01/18/23 19:15 01/18/23 19:30 Pulse Rate 73 77 Respiratory Rate 16 15 Blood Pressure 118/60 Pulse Oximetry 97 98 01/18/23 19:30 01/18/23 19:45 01/18/23 19:45 Pulse Rate 71 Respiratory Rate 13 Blood Pressure 116/58 L 105/52 L Pulse Oximetry 96 01/18/23 20:00 01/18/23 20:00 01/18/23 20:15 Pulse Rate 71 Respiratory Rate 15 Blood Pressure 114/57 L 112/56 L Pulse Oximetry 97 01/18/23 20:15 01/18/23 20:30 01/18/23 20:30 Pulse Rate 72 68 Respiratory Rate 15 13 Blood Pressure 124/58 L Pulse Oximetry 97 97 01/18/23 20:45 01/18/23 20:45 01/18/23 21:15 Pulse Rate 67 69 Respiratory Rate 11 L 15 Blood Pressure 114/55 L Pulse Oximetry 97 99 01/18/23 21:15 01/18/23 21:30 01/18/23 21:30 Pulse Rate 70 Respiratory Rate 15 Blood Pressure 128/62 110/54 L Pulse Oximetry 97 01/18/23 21:45 01/18/23 21:45 01/18/23 22:00 Pulse Rate 66 66 Respiratory Rate 18 13 Blood Pressure 112/58 L Pulse Oximetry 97 97 01/18/23 22:00 Pulse Rate Respiratory Rate Blood Pressure 110/54 L Pulse Oximetry MDM - Altered Mental Status Lab Data 01/18/23 18:03 01/18/23 18:03 Labs: Lab Results 01/18/23 01/18/23 01/18/23 Range/Units 18:03 21:20 21:20 WBC 11.2 H (4.5-11.0) X10^3/uL RBC 4.61 (4.0-5.2) X10^6/uL Hgb 13.6 (12.0-16.0) g/dL Hct 41.1 (36-46) % MCV 89.2 (80-100) fL MCH 29.4 (26-34) PG MCHC 33.0 (30-36) % RDW 15.2 H (11.6-14.8) % Plt Count 248 (150-400) X10^3/uL Neut % (Auto) 79.8 H (50-75) % Lymph % (Auto) 11.2 L (25-40) % [place] % (Auto) 6.6 (3-14) % Eos % (Auto) 1.6 L (2-4) % Baso % (Auto) 0.8 (0-2) % Neut # (Auto) 9000 H (5177-3390) /uL Lymph # (Auto) 1300 (7886-9801) /uL [place] # (Auto) 700 (0-900) /uL Eos # (Auto) 200 (0-450) /uL Baso # (Auto) 100 (0-100) /uL PT 10.5 (10.1-12.7) SECONDS INR 0.9 (0.9-1.3) APTT 32 (26-36) SECONDS Sodium 134 L (137-145) mmol/L Potassium 5.0 (3.4-5.1) mmol/L Chloride 102 (98-107) mmol/L Carbon Dioxide 24 (22-32) mmol/L BUN 27 H (7-17) mg/dL Creatinine 1.39 H (0.52-1.04) mg/dL Estimated GFR 37 L (>60) mL/min BUN/Creatinine Ratio 19.4 (6-22) Glucose 247 H (80-110) mg/dL Lactate 3.0 H (0.7-2.1) mmol/L Calcium 11.0 H (8.4-10.2) mg/dL Total Bilirubin 0.2 (0.2-1.3) mg/dL AST 17 (14-36) IU/L ALT 15 (<35) IU/L Alkaline Phosphatase 78 (38-126) U/L Total Protein 6.8 (6.3-8.2) g/dL Albumin 3.8 (3.5-5.0) g/dL Globulin 3.0 (1.7-4.1) g/dL Albumin/Globulin Ratio 1.3 (1.0-2.8) Lipase 78 (23-300) U/L Procalcitonin 0.05 (<0.5) ng/mL Urine Color Yellow Urine Appearance Clear Urine pH 6.0 (4.5-8.0) Ur Specific [place] 1.010 (1.000-1.035) Urine Protein Negative (Negative) Urine Glucose (UA) Negative (Negative) g/dL Urine Ketones Negative (NEGATIVE) Urine Occult Blood Negative (Negative) Urine Nitrate Negative (Negative) Urine Bilirubin Negative (NEGATIVE) Urine Urobilinogen 0.2 (0.2) E.U./dL Ur Leukocyte Esterase 2+ H (NEGATIVE) Urine RBC 0-1/hpf Cancelled (0-5/HPF) Urine WBC 1-5/hpf (0-5/HPF) Ur Squamous Epith Cells (0-5/HPF) Ur Transition Epith Cell Ur Renal Epithelial Cell Calcium Oxalate Crystal Uric Acid Crystals Triple Phos Crystals Other Crystals Amorphous Sediment Urine Bacteria (None) Hyaline Casts Granular Casts RBC Casts WBC Casts Other Casts Urine Mucus Urine Trichomonas Urine Yeast Urine Sperm Ur Culture Indicated? Micro UA Comment 01/18/23 01/18/23 01/18/23 Range/Units 21:20 21:20 21:20 WBC (4.5-11.0) X10^3/uL RBC (4.0-5.2) X10^6/uL Hgb (12.0-16.0) g/dL Hct (36-46) % MCV (80-100) fL MCH (26-34) PG MCHC (30-36) % RDW (11.6-14.8) % Plt Count (150-400) X10^3/uL Neut % (Auto) (50-75) % Lymph % (Auto) (25-40) % [place] % (Auto) (3-14) % Eos % (Auto) (2-4) % Baso % (Auto) (0-2) % Neut # (Auto) (0311-0403) /uL Lymph # (Auto) (7678-5757) /uL [place] # (Auto) (0-900) /uL Eos # (Auto) (0-450) /uL Baso # (Auto) (0-100) /uL PT (10.1-12.7) SECONDS INR (0.9-1.3) APTT (26-36) SECONDS Sodium (137-145) mmol/L Potassium (3.4-5.1) mmol/L Chloride (98-107) mmol/L Carbon Dioxide (22-32) mmol/L BUN (7-17) mg/dL Creatinine (0.52-1.04) mg/dL Estimated GFR (>60) mL/min BUN/Creatinine Ratio (6-22) Glucose (80-110) mg/dL Lactate (0.7-2.1) mmol/L Calcium (8.4-10.2) mg/dL Total Bilirubin (0.2-1.3) mg/dL AST (14-36) IU/L ALT (<35) IU/L Alkaline Phosphatase (38-126) U/L Total Protein (6.3-8.2) g/dL Albumin (3.5-5.0) g/dL Globulin (1.7-4.1) g/dL Albumin/Globulin Ratio (1.0-2.8) Lipase (23-300) U/L Procalcitonin (<0.5) ng/mL Urine Color Urine Appearance Urine pH (4.5-8.0) Ur Specific [place] (1.000-1.035) Urine Protein (Negative) Urine Glucose (UA) (Negative) g/dL Urine Ketones (NEGATIVE) Urine Occult Blood (Negative) Urine Nitrate (Negative) Urine Bilirubin (NEGATIVE) Urine Urobilinogen (0.2) E.U./dL Ur Leukocyte Esterase (NEGATIVE) Urine RBC (0-5/HPF) Urine WBC Cancelled (0-5/HPF) Ur Squamous Epith Cells 1-5 /hpf Cancelled (0-5/HPF) Ur Transition Epith Cell Cancelled Ur Renal Epithelial Cell Cancelled Calcium Oxalate Crystal Cancelled Uric Acid Crystals Cancelled Triple Phos Crystals Cancelled Other Crystals Cancelled Amorphous Sediment Cancelled Urine Bacteria Few (2-10) H Cancelled (None) Hyaline Casts Cancelled Granular Casts Cancelled RBC Casts Cancelled WBC Casts Cancelled Other Casts Cancelled Urine Mucus Cancelled Urine Trichomonas Cancelled Urine Yeast Cancelled Urine Sperm Cancelled Ur Culture Indicated? Specimen cultured Micro UA Comment 01/18/23 01/18/23 Range/Units 21:20 21:22 WBC (4.5-11.0) X10^3/uL RBC (4.0-5.2) X10^6/uL Hgb (12.0-16.0) g/dL Hct (36-46) % MCV (80-100) fL MCH (26-34) PG MCHC (30-36) % RDW (11.6-14.8) % Plt Count (150-400) X10^3/uL Neut % (Auto) (50-75) % Lymph % (Auto) (25-40) % [place] % (Auto) (3-14) % Eos % (Auto) (2-4) % Baso % (Auto) (0-2) % Neut # (Auto) (5796-1324) /uL Lymph # (Auto) (8161-0726) /uL [place] # (Auto) (0-900) /uL Eos # (Auto) (0-450) /uL Baso # (Auto) (0-100) /uL PT (10.1-12.7) SECONDS INR (0.9-1.3) APTT (26-36) SECONDS Sodium (137-145) mmol/L Potassium (3.4-5.1) mmol/L Chloride (98-107) mmol/L Carbon Dioxide (22-32) mmol/L BUN (7-17) mg/dL Creatinine (0.52-1.04) mg/dL Estimated GFR (>60) mL/min BUN/Creatinine Ratio (6-22) Glucose (80-110) mg/dL Lactate 2.3 H (0.7-2.1) mmol/L Calcium (8.4-10.2) mg/dL Total Bilirubin (0.2-1.3) mg/dL AST (14-36) IU/L ALT (<35) IU/L Alkaline Phosphatase (38-126) U/L Total Protein (6.3-8.2) g/dL Albumin (3.5-5.0) g/dL Globulin (1.7-4.1) g/dL Albumin/Globulin Ratio (1.0-2.8) Lipase (23-300) U/L Procalcitonin (<0.5) ng/mL Urine Color Urine Appearance Urine pH (4.5-8.0) Ur Specific [place] (1.000-1.035) Urine Protein (Negative) Urine Glucose (UA) (Negative) g/dL Urine Ketones (NEGATIVE) Urine Occult Blood (Negative) Urine Nitrate (Negative) Urine Bilirubin (NEGATIVE) Urine Urobilinogen (0.2) E.U./dL Ur Leukocyte Esterase (NEGATIVE) Urine RBC (0-5/HPF) Urine WBC (0-5/HPF) Ur Squamous Epith Cells (0-5/HPF) Ur Transition Epith Cell Ur Renal Epithelial Cell Calcium Oxalate Crystal Uric Acid Crystals Triple Phos Crystals Other Crystals Amorphous Sediment Urine Bacteria (None) Hyaline Casts Granular Casts RBC Casts WBC Casts Other Casts Urine Mucus Urine Trichomonas Urine Yeast Urine Sperm Ur Culture Indicated? Cancelled Micro UA Comment Cancelled MDM Narrative Medical decision making narrative: [87] year old patient presents with hallucinations and concern that she may have sepsis Multiple etiologies for patient's symptoms considered including, but not limited to: [Failed treatment versus other] Prior Charts reviewed in our EMR Primary Historian: patient Labs reviewed and interpreted by myself: Greatly improved urine with only subtle suggestion of ongoing infectious process, no leukocytosis or left shift, initial lactate elevated and improved to near normal by repeat, significance is unclear, electrolytes and renal function within normal limits. Imaging reviewed: Chest x-ray without evidence of acute process Patient given fluids and antibiotics with significant if not complete resolution of symptoms, she is certainly at baseline, ambulatory through the department without difficulty Patient's history and physical exam raised the question of multiple diagnoses as noted above. Patient urine is greatly improved, serum labs largely unremarkable, significance of lactate unclear, after fluids she feels significant improvement, urine culture consulted and cefdinir appears to be appropriate choice, no signs of ongoing sepsis as vital signs of completely normalized. Etiology of symptoms likely at least in some level due to dehydration, no indication for admission at this point. Return precautions discussed Patient's symptoms improved over duration of stay with above-stated therapies. Findings and discharge diagnosis discussed with patient/family followed by verbalization of understanding Return precautions discussed with patient/family whom verbalize understanding of diagnosis and plan Discharge Plan Departure Patient Disposition: Home Clinical Impression: Acute dehydration Instructions: DI for Dehydration -- Adult, DI for Urinary Tract Infection (UTI) Activity Restrictions/Additional Instructions: *You have been diagnosed with [mild ongoing UTI and dehydration] *What to do: *Please continue to take your regular medications as directed. [ ] New medication prescriptions sent to your pharmacy: [ ] [ ] New medication written as a paper prescription [ ] No new medications given *Please follow up with your primary care provider in 2-3 days, call for an appointment. Let them know you were seen in the Emergency Department and that we ask that you be seen in follow up. We will electronically transmit a record of today's note if your PCP is in our system *If you do not have a primary care provider please contact the [facility] Resource line at [phone]. They will ask some questions about your medical history and help get you set up with a doctor in the community. *Return to Emergency Department if you should have any new, worsening or concerning symptoms, such as [fever greater than 101 F, shaking chills, worsening pain, persistent vomiting or other bothersome symptoms] Prescriptions: No Action (DME) miscellaneous medical supply Misc See Dose Instructions .Route .MEDSUPPLY Qty: 1 0RF Dose Instruction: Disabled Parking Permit Rx Instructions: Disabled Parking Permit Glucocard Expression Strip See Rx Instructions .ROUTE .COMPLEX Qty: 100 2RF Dose Instruction: USE TO CHECK BLOOD SUGAR FROM FINGER TWICE DAILY Rx Instructions: USE TO CHECK BLOOD SUGAR FROM FINGER TWICE DAILY losartan 25 mg tablet 25 mg PO DAILY Qty: 90 3RF pen needle, diabetic [TRUEplus Pen Needle] 31 gauge x 5/16 needle See Rx Instructions .ROUTE .COMPLEX Qty: 100 3RF Dose Instruction: USE FOR INSULIN INJECTIONS Rx Instructions: USE FOR INSULIN INJECTIONS (DME) Dexcom G6 Outpatient Admitting Clerk Misc See Rx Instructions .Route Qty: 1 0RF Rx Instructions: As directed (DME) Dexcom G6 Transmitter Device See Rx Instructions .Route Qty: 1 0RF Rx Instructions: As directed (DME) Dexcom G6 Sensor Device See Rx Instructions .Route Qty: 3 0RF Rx Instructions: As directed cefdinir 300 mg capsule 300 mg PO BID Qty: 20 0RF loperamide [Imodium A-D] 2 mg capsule 2 mg PO QID PRN (Reason: loose stool) Qty: 60 0RF metformin 1,000 mg tablet 1,000 mg PO BIDCC Qty: 180 0RF Lantus Solostar U-100 Insulin 100 unit/mL (3 mL) insulin pen 40 unit SUBCUT QPM Qty: 15 0RF levothyroxine 50 mcg tablet See Rx Instructions .ROUTE .COMPLEX Qty: 90 3RF Dose Instruction: TAKE 1 TABLET (50 MCG) BY MOUTH DAILY SCHEDULE FOLLOW UP APPT. BEFORE NEXT REFILL. Rx Instructions: TAKE 1 TABLET (50 MCG) BY MOUTH DAILY SCHEDULE FOLLOW UP APPT. BEFORE NEXT REFILL. estradiol 1 mg tablet 1 mg PO QAM Qty: 90 3RF lovastatin 20 mg tablet 20 mg PO QPM Qty: 90 1RF amlodipine 10 mg tablet 10 mg PO DAILY Qty: 90 1RF donepezil 5 mg tablet 5 mg PO BEDTIME Qty: 90 1RF Rx Instructions: TAKE 1 TABLET BY MOUTH BEDTIME furosemide 20 mg tablet See Rx Instructions .ROUTE .COMPLEX Qty: 90 0RF Dose Instruction: TAKE 1 TABLET BY MOUTH DAILY NEEDED FOR EDEMA Rx Instructions: TAKE 1 TABLET BY MOUTH DAILY NEEDED FOR EDEMA cefdinir 300 mg capsule 300 mg PO BID Qty: 20 0RF (DME) insulin syringe,safetyneedle [Assure ID Insulin Safety] 0.5 mL 29 gauge x 1/2 syringe See Dose Instructions .ROUTE .MEDSUPPLY Qty: 500 0RF Dose Instruction: As directed Rx Instructions: As directed dulaglutide 1.5 mg/0.5 mL pen injector 1.5 mg SUBCUT QWEEK Qty: 2 3RF (DME) disabled parking permit See Rx Instructions .ROUTE .MEDSUPPLY Qty: 1 0RF Rx Instructions: As directed. patient qualifies for disabled parking as per attached form. memantine [Namenda] 10 mg tablet 10 mg PO BID Qty: 180 0RF Rx Instructions: take after completing 5mg daily dose, then 10mg daily dose cranberry PO Referrals: Keenan Stout MD [Primary Care Provider] - Stand Alone Forms: Patient Portal/API
[2023-01-18] MEDS: cefTRIAXone 2,000 MG in SODIUM CHLORIDE 0.9% 100 ML 200 MG IV (18:31)
[2023-01-18] MEDS: SODIUM CHLORIDE 0.9% 1,000 ML 1000 ML IV (18:32)
[2023-01-18 18:38] LABS: Add Manual Diff / Slide Review NO; Basophils Absolute Auto 100 /uL (0-100); Basophils Percent Auto 0.8 % (0-2); Eosinophils Absolute Auto 200 /uL (0-450); Eosinophils Percent Auto 1.6 % (2-4); Hematocrit 41.1 % (36-46); Hemoglobin 13.6 g/dL (12.0-16.0); Lymphocytes Absolute Auto 1300 /uL (1100-4500); Lymphocytes Percent Auto 11.2 % (25-40); Mean Corpuscular Hemoglobin 29.4 PG (26-34); Mean Corpuscular Volume 89.2 fL (80-100); Monocytes Absolute Auto 700 /uL (0-900); Monocytes Percent Auto 6.6 % (3-14); Neutrophils Absolute Auto 9000 /uL (1500-7000); Neutrophils Percent Auto 79.8 % (50-75); Platelet Count 248 X10^3/uL (150-400); Red Blood Cell Count 4.61 X10^6/uL (4.0-5.2); Red Cell Distribution Width 15.2 % (11.6-14.8); White Blood Cell Count 11.2 X10^3/uL (4.5-11.0)
[2023-01-18 18:46] LABS: INR 0.9 (0.9-1.3); Prothrombin Time 10.5 SECONDS (10.1-12.7)
[2023-01-18 18:49] LABS: PTT Partial Thromboplastin Tim 32 SECONDS (26-36)
--- NOTE | 2023-01-18 18:51 | PC.NURSE ---
Patient with hx of visual hallucinations with UTI. Patient started with hallucinations last Wednesday, started abx on Wednesday and continues to have hallucinations. In the past hallucinations were resolved within 24-48hrs of initiation of abx but have not as of today. Patient reported seeing bugs near her arm during IV insertion. Patient remains pleasant and cooperative with care, reports she knows she knows shes having hallucinations and that they are not real. Denies all other symptoms of UTI or infection.
[2023-01-18 18:56] LABS: Alanine Aminotransferase 15 IU/L (<35); Albumin 3.8 g/dL (3.5-5.0); Albumin Globulin Ratio 1.3 (1.0-2.8); Alkaline Phosphatase 78 U/L (38-126); Aspartate Aminotransferase 17 IU/L (14-36); BUN Creatinine Ratio 19.4 (6-22); Bilirubin Total 0.2 mg/dL (0.2-1.3); Blood Urea Nitrogen 27 mg/dL (7-17); Carbon Dioxide 24 mmol/L (22-32); Chloride 102 mmol/L (98-107); Estimated Glomerular Filt Rate 37 mL/min (>60); Glucose 247 mg/dL (80-110); HEMOLYSIS < 15 (0-50); Lipase 78 U/L (23-300); Sodium 134 mmol/L (137-145); Total Protein 6.8 g/dL (6.3-8.2)
[2023-01-18 19:12] LABS: Procalcitonin 0.05 ng/mL (<0.5)
[2023-01-18] MEDS: SODIUM CHLORIDE 0.9% 2,449.41 ML 816.47 ML IV (19:58)
[2023-01-18 20:11] LABS: Reflexed Lactate in 2 Hours Y
[2023-01-18 21:23] LABS: Appearance Urine UA CLEAR; Bilirubin Urine UA NEGATIVE (NEGATIVE); Color Urine UA YELLOW; Glucose Urine UA NEGATIVE (Negative); Ketones Urine UA NEGATIVE (NEGATIVE); Leukocyte Esterase Urine UA 2+ (NEGATIVE); Nitrite Urine UA NEGATIVE (Negative); Occult Blood Urine UA NEGATIVE (Negative); Protein Urine UA NEGATIVE (Negative); Urobilinogen Urine UA 0.2 E.U./dL (0.2)
[2023-01-18 21:34] LABS: Bacteria Urine Few (2-10); Culture Indicated Urine Specimen Cultured; RBC Urine 0-1/HPF (0-5/HPF); Squamous Epithelial Cell Urine 1-5 /HPF (0-5/HPF); WBC Urine 1-5/HPF (0-5/HPF)
[2023-01-18 21:37] LABS: Lactate 2HR (Lactic Acid Rflx) 2.3 mmol/L (0.7-2.1)
--- NOTE | 2023-01-18 22:26 | PC.NURSE ---
Patient reports improvement of hallucination symptoms since being in the ED.
== END 2023-01-18 22:27 | disposition home or self-care (01) ==
PROVIDERS: Emergency Medicine; Emergency Provider Emergency Medicine; PCP Family Medicine
DX: E86.0 Dehydration (principal); N39.0 Urinary tract infection, site not specified; Z79.899 Other long term (current) drug therapy
CPT/HCPCS: 36415; 71045; 80053; 81001; 81015; 83605; 83690; 84145; 85025; 85610; 85730; 87040; 87077; 87086; 87186; 96361; 96365; 99284; J0696

== ENCOUNTER → 2023-04-29 10:29 | Outpatient (CLI) | payer MEDICARE, SELFPAY ==
[2022-05-20 13:16] VITALS: BMI 35.5
== END ==
PROVIDERS: PCP Family Medicine; Visit Provider Urology
DX: N39.0 Urinary tract infection, site not specified (principal); N39.41 Urge incontinence; N95.2 Postmenopausal atrophic vaginitis; F09 Unspecified mental disorder due to known physiological condition; R60.0 Localized edema; Z77.22 Contact with and (suspected) exposure to environmental tobacco smoke (acute) (chronic)
CPT/HCPCS: 81002; 87077; 87086; 87186; 99214

== ENCOUNTER → 2023-05-13 16:33 | Outpatient (CLI) | payer MEDICARE, SELFPAY ==
[2022-05-20 13:16] VITALS: BMI 35.5
--- NOTE | 2023-05-13 16:34 | DI.US.S_ITS ---
PROCEDURE: US PERIPH VENOUS LOW EXTREM LT INDICATIONS: new unilateral swelling of left lower leg TECHNIQUE: Real-time imaging, as well as color and pulse Doppler interrogation, were performed of the lower extremity deep veins from the inguinal ligament to the popliteal fossa, with documentation of the visualized calf veins. COMPARISON: None. FINDINGS: The common femoral, femoral, popliteal, and the visualized calf veins are normally compressible, and free of intraluminal thrombus. Color and pulse Doppler demonstrate normal phasic intraluminal flow. There is normal augmentation response to distal compression maneuver. IMPRESSION: No findings of lower extremity deep venous thrombosis. Approved by: Karlos Guerin M.D. on 05/13/2023 at 17:09
[2023-05-14 14:01] LABS: Add Manual Diff / Slide Review NO; Basophils Absolute Auto 100 /uL (0-100); Basophils Percent Auto 0.8 % (0-2); Eosinophils Absolute Auto 300 /uL (0-450); Eosinophils Percent Auto 2.9 % (2-4); Hematocrit 41.1 % (36-46); Hemoglobin 13.2 g/dL (12.0-16.0); Lymphocytes Absolute Auto 2200 /uL (1100-4500); Lymphocytes Percent Auto 18.7 % (25-40); Mean Corpuscular HGB Conc 32.2 % (30-36); Mean Corpuscular Hemoglobin 29.1 PG (26-34); Mean Corpuscular Volume 90.3 fL (80-100); Monocytes Absolute Auto 700 /uL (0-900); Monocytes Percent Auto 6.2 % (3-14); Neutrophils Absolute Auto 8300 /uL (1500-7000); Neutrophils Percent Auto 71.4 % (50-75); Platelet Count 250 X10^3/uL (150-400); Red Blood Cell Count 4.55 X10^6/uL (4.0-5.2); Red Cell Distribution Width 14.9 % (11.6-14.8); White Blood Cell Count 11.6 X10^3/uL (4.5-11.0)
[2023-05-14 14:24] LABS: Hemoglobin A1C% w Est Avg Glu 6.1 % (4.0-6.0)
[2023-05-14 14:25] LABS: Alanine Aminotransferase 13 IU/L (<35); Albumin 3.7 g/dL (3.5-5.0); Albumin Globulin Ratio 1.3 (1.0-2.8); Alkaline Phosphatase 69 U/L (38-126); Aspartate Aminotransferase 17 IU/L (14-36); BUN Creatinine Ratio 22.1 (6-22); Bilirubin Total 0.5 mg/dL (0.2-1.3); Blood Urea Nitrogen 21 mg/dL (7-17); Calcium 10.6 mg/dL (8.4-10.2); Carbon Dioxide 27 mmol/L (22-32); Chloride 102 mmol/L (98-107); Cholesterol 139 mg/dL (140-199); Estimated Glomerular Filt Rate 59 mL/min (>60); Globulin 2.8 g/dL (1.7-4.1); Glucose 87 mg/dL (80-110); HDL Cholesterol 69 mg/dL (40-60); HEMOLYSIS < 15 (0-50); LDL Cholesterol Calculated 42 mg/dL (<100); Potassium 4.8 mmol/L (3.4-5.1); Sodium 136 mmol/L (137-145); Total Protein 6.5 g/dL (6.3-8.2); Triglycerides 139 mg/dL (35-150)
[2023-05-14 14:52] LABS: TSH w/ Reflex to FT4 2.47 uIU/mL (0.47-4.68)
[2023-05-18 06:36] LABS: Calcium 10.7 mg/dL (8.7-10.3); Parathyroid Hormone, Intact 80 pg/mL (15-65)
== END ==
PROVIDERS: PCP Family Medicine; Referring Provider Family Medicine; Visit Provider Family Medicine
DX: I10 Essential (primary) hypertension (principal); E11.9 Type 2 diabetes mellitus without complications; R60.0 Localized edema; E21.3 Hyperparathyroidism, unspecified; E78.2 Mixed hyperlipidemia
CPT/HCPCS: 36415; 80053; 80061; 82310; 83036; 83970; 84443; 85025; 93971

== ENCOUNTER → 2023-09-23 16:58 | Outpatient (CLI) | payer MEDICARE, SELFPAY ==
[2022-05-20 13:16] VITALS: BMI 35.5
== END ==
PROVIDERS: PCP Family Medicine; Referring Provider Family Medicine; Visit Provider Family Medicine
DX: E78.2 Mixed hyperlipidemia (principal); E11.9 Type 2 diabetes mellitus without complications; I10 Essential (primary) hypertension; R41.3 Other amnesia; G30.9 Alzheimer's disease, unspecified; F02.80 Dementia in other diseases classified elsewhere, unspecified severity, without behavioral disturbance, psychotic disturbance, mood disturbance, and anxiety
CPT/HCPCS: 36415; 83036

== ENCOUNTER 2023-10-17 13:40 | Inpatient (IN) | payer MEDICARE, SELFPAY ==
[2022-05-20 13:16] VITALS: BMI 35.5
[2023-10-17] VITALS (16 sets, daily range): BP systolic 127–168; BP diastolic 51–98; PULSE 64–75; RESP 12–23; TEMP 35.9–36.6; O2SAT 94–97; BMI 32.6
--- NOTE | 2023-10-17 13:54 | EKG_ITS ---
[address] [address] [address] [address] Test Date: 2023-10-17 Pat Name: Isabella Lucero Department: Room: Gender: Female Sheet Tailer: RJ : 1935 Requested By: Order Number: [id number] Reading MD: Camden Carroll Measurements Intervals [place] Rate: 74 P: 53 [place]: 194 QRS: -1 QRSD: 86 T: 56 QT: 398 QTc: 441 Interpretive Statements Normal sinus rhythm Low voltage QRS Electronically Signed On 10-20-2023 9:15:48 PDT by Camden Carroll
--- NOTE | 2023-10-17 14:00 | DI.CT.S_ITS ---
PROCEDURE: CT HEAD/BRAIN WO CON INDICATIONS: ams TECHNIQUE: Noncontrast 4.5 mm thick angled axial sections acquired from the foramen magnum to the vertex, with coronal and sagittal reformats. For radiation dose reduction, the following was used: automated exposure control, adjustment of mA and/or kV according to patient size. COMPARISON: [facility], CT, CT HEAD/BRAIN WO CON, 03/31/2019, 19:00. FINDINGS: Image quality: Diagnostic. CSF spaces: Basal cisterns are patent. No extra-axial fluid collections. The ventricles are symmetric in size and shape. Brain: No intracranial bleeds or masses. There is cerebral volume loss for age, with resultant ventricular and sulcal prominence. There are periventricular and deep white matter chronic small vessel ischemic changes. There is intracranial internal carotid artery atherosclerosis. Skull and face: Left height frontal parietal scalp hematoma and swelling is seen. Calvarium and visualized facial bones appear intact, without suspicious lesions. Sinuses: Visualized sinuses and mastoids are clear. IMPRESSION: 1. No CT evidence of acute intracranial pathology. 2. High left frontal parietal scalp hematoma and swelling. No gross acute skull fracture. Dictated by: Brent Fay M.D. on 10/17/2023 at 14:44 Approved by: Brent Fay M.D. on 10/17/2023 at 14:45
--- NOTE | 2023-10-17 14:00 | DI.RAD.S_ITS ---
PROCEDURE: XR CHEST 1V INDICATIONS: confusion TECHNIQUE: One view of the chest was acquired. COMPARISON: [facility], CR, XR CHEST 1V, 01/18/2023, 17:47. FINDINGS: Surgical changes and devices: None. Lungs and pleura: Lungs are clear. No pleural effusions or pneumothorax. Mediastinum: Mediastinal contours appear normal. Heart size is normal. Bones and chest wall: No suspicious bony lesions. Overlying soft tissues appear unremarkable. IMPRESSION: No acute cardiopulmonary pathology. Dictated by: Brent Fay M.D. on 10/17/2023 at 14:46 Approved by: Brent aFy M.D. on 10/17/2023 at 14:47
[2023-10-17 14:09] LABS: Add Manual Diff / Slide Review NO; Basophils Absolute Auto 0 /uL (0-100); Basophils Percent Auto 0.3 % (0-2); Eosinophils Absolute Auto 0 /uL (0-450); Eosinophils Percent Auto 0.1 % (2-4); Hematocrit 44.5 % (36-46); Hemoglobin 14.4 g/dL (12.0-16.0); Lymphocytes Absolute Auto 1100 /uL (1100-4500); Lymphocytes Percent Auto 6.4 % (25-40); Mean Corpuscular HGB Conc 32.5 % (30-36); Mean Corpuscular Hemoglobin 29.2 PG (26-34); Mean Corpuscular Volume 89.9 fL (80-100); Monocytes Absolute Auto 700 /uL (0-900); Monocytes Percent Auto 4.1 % (3-14); Neutrophils Absolute Auto 15600 /uL (1500-7000); Neutrophils Percent Auto 89.1 % (50-75); Platelet Count 274 X10^3/uL (150-400); Red Blood Cell Count 4.95 X10^6/uL (4.0-5.2); White Blood Cell Count 17.5 X10^3/uL (4.5-11.0)
[2023-10-17 14:19] LABS: INR 0.9 (0.9-1.3); Prothrombin Time 10.1 SECONDS (9.4-12.5)
[2023-10-17 14:21] LABS: Acetaminophen < 10 ug/mL (10-30); Alanine Aminotransferase 15 IU/L (<35); Albumin 4.3 g/dL (3.5-5.0); Albumin Globulin Ratio 1.4 (1.0-2.8); Alkaline Phosphatase 74 U/L (38-126); Aspartate Aminotransferase 19 IU/L (14-36); BUN Creatinine Ratio 22.2 (6-22); Bilirubin Total 0.5 mg/dL (0.2-1.3); Blood Urea Nitrogen 26 mg/dL (7-17); Calcium 10.6 mg/dL (8.4-10.2); Carbon Dioxide 25 mmol/L (22-32); Chloride 106 mmol/L (98-107); Creatine Kinase 28 U/L (30-135); Estimated Glomerular Filt Rate 45 mL/min (>60); Ethanol (ETOH) < 10 mg/dL; Globulin 3.1 g/dL (1.7-4.1); Glucose 162 mg/dL (80-110); HEMOLYSIS < 15 (0-50); Salicylate < 1.0 mg/dL (<20); Sodium 137 mmol/L (137-145); Total Protein 7.4 g/dL (6.3-8.2)
[2023-10-17 14:22] LABS: Lactate (Lactic Acid) 1.1 mmol/L (0.7-2.1)
[2023-10-17] MEDS: SODIUM CHLORIDE 0.9% 867.72 ML IV (14:22)
[2023-10-17] MEDS: cefTRIAXone 2,000 MG in SODIUM CHLORIDE 0.9% 100 ML 200 MG IV (14:23)
[2023-10-17 14:27] LABS: PTT Partial Thromboplastin Tim 33 SECONDS (25.1-36.5)
[2023-10-17 14:28] LABS: UR Morphine/Opiate cutoff 300 Negative (Negative); Ur Creatinine Normal (Normal); Ur Specific Gravity Normal (Normal); Urine Amphetamines Negative (Negative); Urine Cocaine Negative (Negative); Urine MDMA Negative (Negative); Urine Methamphetamines Negative (Negative); Urine Phencyclidine Negative (Negative); Urine Tetrahydrocannabinol Negative (Negative); Urine pH Normal (Normal)
[2023-10-17 14:29] LABS: Bilirubin Urine UA NEGATIVE (NEGATIVE); Color Urine UA YELLOW; Glucose Urine UA NEGATIVE (Negative); Ketones Urine UA NEGATIVE (NEGATIVE); Leukocyte Esterase Urine UA NEGATIVE (NEGATIVE); Nitrite Urine UA NEGATIVE (Negative); Occult Blood Urine UA NEGATIVE (Negative); Protein Urine UA TRACE (Negative); Urine Barbiturates Negative (Negative); Urine Benzodiazepines Negative (Negative); Urine Methadone Negative (Negative); Urine Oxycodone Negative (Negative); Urine Tricyclic Antidepressant Negative (Negative)
[2023-10-17 14:30] LABS: Appearance Urine UA CLOUDY; pH Urine UA 8.5 (4.5-8.0)
[2023-10-17 14:33] LABS: Troponin I 0.081 ng/mL (0.01-0.034)
[2023-10-17 14:40] LABS: Amorphous Sediment Urine 3+; Bacteria Urine Many (>30); RBC Urine None Seen (0-5/HPF); Squamous Epithelial Cell Urine None Seen (0-5/HPF); Triple Phosphate Crystal Urine Moderate; Urine Volume Low Vol <10mL (spun); WBC Urine 0-1/HPF (0-5/HPF)
[2023-10-17 14:41] LABS: Culture Indicated Urine Cult Not Indicated
[2023-10-17 14:52] LABS: Ammonia (NH3) < 9 umol/L (9-30)
--- NOTE | 2023-10-17 15:28 | ED.AMS ---
HPI - Altered Mental Status General Chief Complaint: Unresponsive Stated Complaint: Unresponsive Time Seen by Provider: 10/17/23 13:53 Source: EMS Mode of arrival: EMS History of Present Illness HPI narrative: Patient is a 88-year-old female history of Alzheimer's disease, hypothyroidism diabetes CVA presenting today at daughter request for decreasing mental status. She lives with daughters they report that she was at her baseline mental status yesterday. She can normally feed herself and do some daily living activities but does need some assistance. She is able to have conversations however today she is very confused and minimally responsive. She is also incontinent of urine which daughter's report is normal for. They are adamant that she is DNR DNI I but agreeable to ED workup IV fluids and antibiotics. Patient is responsive to pain and voice able to follow some commands but overall not able to provide any sort of history Related Data Home Medications Medication Instructions Recorded Confirmed cranberry extract PO 06/22/23 09/23/23 amlodipine 10 mg tablet 10 mg PO DAILY 10/17/23 10/17/23 citalopram 10 mg tablet 10 mg PO DAILY 10/17/23 10/17/23 donepezil 5 mg tablet 5 mg PO DAILY 10/17/23 10/17/23 estradiol 1 mg tablet 1 mg PO DAILY 10/17/23 10/17/23 furosemide 20 mg tablet 20 mg PO DAILY 10/17/23 10/17/23 insulin glargine 100 unit/mL (3 40 unit SUBCUT QPM 10/17/23 10/17/23 mL) subcutaneous pen (Lantus Solostar U-100 Insulin) levothyroxine 50 mcg tablet 50 mcg PO DAILY 10/17/23 10/17/23 losartan 25 mg tablet 25 mg PO DAILY 10/17/23 10/17/23 lovastatin 20 mg tablet 20 mg PO DAILY 10/17/23 10/17/23 memantine 5 mg tablet 5 mg PO DAILY 10/17/23 10/17/23 metformin 1,000 mg tablet 1,000 mg PO BID 10/17/23 10/17/23 tirzepatide 5 mg/0.5 mL 5 mg SUBCUT 10/17/23 subcutaneous pen injector (Chica) Previous Rx's Medication Instructions Recorded insulin syringe,safetyneedle 0.5 #500 ea 01/16/19 mL 29 gauge x 1/2 (Assure ID Insulin Safety) miscellaneous medical supply #1 ea 03/02/19 disabled [address] permit #1 ea 02/09/20 blood sugar diagnostic (Glucocard See Rx Instructions .Route 12/23/20 Expression strips) .COMPLEX #100 ea pen needle, diabetic 31 gauge x See Rx Instructions .Route 11/21/21 5/16 (TRUEplus Pen Needle) .COMPLEX #100 ea blood-glucose meter,continuous #1 ea 02/13/22 (Dexcom G6 Special Officer) blood-glucose sensor (Dexcom G6 #3 ea 02/13/22 Sensor device) blood-glucose transmitter (Dexcom #1 ea 02/13/22 G6 Transmitter device) Allergies Allergy/AdvReac Type Severity Reaction Status Date / Time penicillin G [PENICILLIN G] Allergy Intermediate Hives Verified 09/23/23 16:16 Patient History Medical History Alzheimer disease Atrophic vaginitis Cognitive dysfunction Urge incontinence Secondhand smoke exposure Recurrent urinary tract infection History of asthma Lower extremity edema Hyperparathyroidism Swelling of left hand Obesity (BMI 30-39.9) Infection of fingernail of left hand Laceration of hand Shortness of breath Hypoxemia UTI (urinary tract infection) CVA, old, alterations of sensations Nocturnal hypoxemia Obstructive sleep apnea of adult (~08/2018) Excessive daytime sleepiness CVA (cerebral vascular accident) Fractures (~1962) Foot pain (~1962) Eczema (~2013) Hepatitis C (~1948) Cataract (~2014) Diabetes mellitus (~1996) Contusion of rib on right side Contusion of right shoulder Cellulitis Surgical History History of knee replacement Anesthesia Personal history of spine surgery (~2005) Personal history of spine surgery (~2003) Family History Brother No problems noted. Father No problems noted. Mother No problems noted. Daughter Diabetes mellitus Hypertension Thyroid condition Son Diabetes mellitus Social History household members: family Smoking Status: Never smoker alcohol intake: never caffeine: Yes Smoking Status: Never smoker alcohol intake frequency: 0-2 drinks per day Substance Use Type: does not use Exam Initial Vital Signs Initial Vital Signs: Vital Signs Temperature 97.8 F 10/17/23 13:44 Pulse Rate 74 10/17/23 13:44 Respiratory Rate 18 10/17/23 13:44 Blood Pressure 162/72 H 10/17/23 13:44 Pulse Oximetry 96 10/17/23 13:44 Oxygen Delivery Method Room Air 10/17/23 13:44 GENERAL: 88-year-old female responds to voice and pain, incontinent of urine HEENT: Head atraumatic,EOMI, pupils reactive, face symmetric, dry mucous membranes CARDIOVASCULAR: Regular rate and rhythm without murmurs, rubs or gallops. RESPIRATORY: Breath sounds equal bilaterally, no wheezes rales or rhonchi. ABDOMEN: Soft, nontender. Normoactive bowel sounds all 4 quadrants. No guarding or rebound. EXTREMITIES: Normal range of motion, no clubbing or edema. 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 Course Orders Ordered: ED Orders 10/17/23 14:00 CT head/brain wo con Stat XR chest 1V Stat Acetaminophen Stat Complete Blood Count AUTO DIFF Stat Comprehensive Metabolic Panel Stat ETOH [Ethanol (ETOH)] Stat Lactate (Lactic Acid) Stat PTT Partial Thromboplastin Jerod Stat Procalcitonin Stat Prothrombin Time INR Stat Salicylate Stat TSH [Thyroid Stimulating Hormone] Stat Troponin & CK Cardiac Panel Stat EKG-12 Lead Stat 10/17/23 14:14 Urinalysis and Microscopic Stat Urine Drug Screen, Rapid Stat 10/17/23 14:23 Ammonia (NH3) Stat Blood Culture Stat 10/17/23 16:02 Trop I [Troponin I] Stat Acetaminophen (Acetaminophen 325 Mg Tablet) 650 mg PO Q6H PRN PRN Reason: Fever/Mild Pain (1-3) Enoxaparin Sodium (Enoxaparin 40 Mg/0.4 Ml Syringe) 40 mg SUBCUT DAILY JUSTIN Sodium Chloride (Normal Saline 0.9%) 1,000 mls @ 75 mls/hr IV CONT JUSTIN Last Admin: 10/17/23 17:34 Dose: 75 mls/hr Documented By: SHAI Dextrose ([id number]) 100 mls @ 999 mls/hr IV PRN PRN PRN Reason: Hypoglycemia Insulin Glargine (Insulin Glargine 100 Unit/Ml 3ml Pen) 15 unit SUBCUT 2100 JUSTIN Insulin Human Lispro (Insulin Lispro 100 Unit/Ml 3ml Vial) 0 unit SUBCUT ACHS JUSTIN; Protocol Naloxone HCl (Naloxone 0.4 Mg/Ml Vial) 0.2 mg IV Q2MIN PRN PRN Reason: Opiate Reversal Ondansetron HCl (Ondansetron 4 Mg/2 Ml Inj) 4 mg IV Q8HR PRN PRN Reason: Nausea And Vomiting Discontinued Medications Ceftriaxone Sodium 2,000 mg/ (Sodium Chloride) 100 mls @ 200 mls/hr IV NOW ONE Stop: 10/17/23 14:01 Last Infusion: 10/17/23 14:57 Dose: Infused Documented By: Admin: 10/17/23 14:23 Dose: 200 mls/hr Documented By: Sodium Chloride (Normal Saline 0.9%) 2,603.16 mls @ 867.72 mls/hr 30 ml/kg infuse over 3 hr (2603.16 ml) IV NOW ONE Stop: 10/17/23 16:59 Last Infusion: 10/17/23 16:40 Dose: 0 mls/hr Documented By: Admin: 10/17/23 14:22 Dose: 867.72 mls/hr Documented By: Vital Signs Vital signs: Vital Signs - 8 hr 10/17/23 13:44 10/17/23 13:46 10/17/23 13:47 Temperature 97.8 F Pulse Rate 74 75 Respiratory Rate 18 Blood Pressure 162/72 H 162/72 H Pulse Oximetry 96 94 Oxygen Delivery Method Room Air 10/17/23 13:47 10/17/23 14:00 10/17/23 14:15 Temperature Pulse Rate 74 75 73 Respiratory Rate 17 Blood Pressure Pulse Oximetry 96 96 95 Oxygen Delivery Method 10/17/23 14:15 10/17/23 14:35 10/17/23 14:37 Temperature Pulse Rate 71 Respiratory Rate Blood Pressure 152/67 H 162/70 H Pulse Oximetry Oxygen Delivery Method 10/17/23 14:37 10/17/23 15:00 10/17/23 15:01 Temperature Pulse Rate 71 70 Respiratory Rate 21 19 Blood Pressure 168/84 H Pulse Oximetry 96 Oxygen Delivery Method Room Air 10/17/23 15:01 10/17/23 15:30 10/17/23 15:31 Temperature Pulse Rate 73 69 Respiratory Rate 23 17 Blood Pressure 168/98 H Pulse Oximetry 97 Oxygen Delivery Method 10/17/23 15:31 Temperature Pulse Rate 70 Respiratory Rate 13 Blood Pressure Pulse Oximetry 97 Oxygen Delivery Method MDM - Altered Mental Status Lab Data 10/17/23 14:00 10/17/23 14:00 Labs: Lab Results 10/17/23 10/17/23 10/17/23 Range/Units 14:00 14:14 14:14 WBC 17.5 H (4.5-11.0) X10^3/uL RBC 4.95 (4.0-5.2) X10^6/uL Hgb 14.4 (12.0-16.0) g/dL Hct 44.5 (36-46) % MCV 89.9 (80-100) fL MCH 29.2 (26-34) PG MCHC 32.5 (30-36) % RDW 15.0 H (11.6-14.8) % Plt Count 274 (150-400) X10^3/uL Neut % (Auto) 89.1 H (50-75) % Lymph % (Auto) 6.4 L (25-40) % [place] % (Auto) 4.1 (3-14) % Eos % (Auto) 0.1 L (2-4) % Baso % (Auto) 0.3 (0-2) % Neut # (Auto) 10408 H (0690-6428) /uL Lymph # (Auto) 1100 (9924-0757) /uL [place] # (Auto) 700 (0-900) /uL Eos # (Auto) 0 (0-450) /uL Baso # (Auto) 0 (0-100) /uL PT 10.1 (9.4-12.5) SECONDS INR 0.9 (0.9-1.3) APTT 33 (25.1-36.5) SECONDS Sodium 137 (137-145) mmol/L Potassium 5.0 (3.4-5.1) mmol/L Chloride 106 (98-107) mmol/L Carbon Dioxide 25 (22-32) mmol/L BUN 26 H (7-17) mg/dL Creatinine 1.17 H (0.52-1.04) mg/dL Estimated GFR 45 L (>60) mL/min BUN/Creatinine Ratio 22.2 H (6-22) Glucose 162 H (80-110) mg/dL Lactate 1.1 (0.7-2.1) mmol/L Calcium 10.6 H (8.4-10.2) mg/dL Total Bilirubin 0.5 (0.2-1.3) mg/dL AST 19 (14-36) IU/L ALT 15 (<35) IU/L Alkaline Phosphatase 74 (38-126) U/L Ammonia (9-30) umol/L Total Creatine Kinase 28 L (30-135) U/L Troponin I 0.081 H (0.01-0.034) ng/mL Total Protein 7.4 (6.3-8.2) g/dL Albumin 4.3 (3.5-5.0) g/dL Globulin 3.1 (1.7-4.1) g/dL Albumin/Globulin Ratio 1.4 (1.0-2.8) Procalcitonin 0.050 (<0.5) ng/mL TSH 1.90 (0.47-4.68) uIU/mL Urine Color Yellow Urine Appearance Cloudy Urine pH 8.5 H Normal (4.5-8.0) Ur Specific [employer] 1.010 (1.000-1.035) Urine Protein Trace H (Negative) Urine Glucose (UA) Negative (Negative) g/dL Urine Ketones Negative (NEGATIVE) Urine Occult Blood Negative (Negative) Urine Nitrate Negative (Negative) Urine Bilirubin Negative (NEGATIVE) Urine Urobilinogen 1.0 (0.2) E.U./dL Ur Leukocyte Esterase Negative (NEGATIVE) Urine RBC None seen (0-5/HPF) Urine WBC 0-1/hpf (0-5/HPF) Ur Squamous Epith Cells None seen (0-5/HPF) Triple Phos Crystals Moderate Amorphous Sediment 3+ Urine Bacteria Many (>30) H (None) Ur Culture Indicated? Cult not indicated Vol Urine Centrifuged Low vol <10ml (spun) A Salicylates < 1.0 (<20) mg/dL U Opiates 300ng/mL cut Negative (Negative) Ur Oxycodone Screen Negative (Negative) Urine Methadone Screen Negative (Negative) Acetaminophen < 10 (10-30) ug/mL Ur Barbiturates Screen Negative (Negative) U Tricyclic Antidepress Negative (Negative) Ur Phencyclidine Scrn Negative (Negative) Ur Amphetamines Screen Negative (Negative) U Methamphetamines Scrn Negative (Negative) Ur MDMA Scrn (Ecstasy) Negative (Negative) U Benzodiazepines Scrn Negative (Negative) Urine Cocaine Screen Negative (Negative) U Marijuana (THC) Screen Negative (Negative) Urine Specific [employer] Normal (Normal) Ethyl Alcohol < 10 ( - 10) mg/dL Ur Creatinine Normal (Normal) 10/17/23 Range/Units 14:23 WBC (4.5-11.0) X10^3/uL RBC (4.0-5.2) X10^6/uL Hgb (12.0-16.0) g/dL Hct (36-46) % MCV (80-100) fL MCH (26-34) PG MCHC (30-36) % RDW (11.6-14.8) % Plt Count (150-400) X10^3/uL Neut % (Auto) (50-75) % Lymph % (Auto) (25-40) % [place] % (Auto) (3-14) % Eos % (Auto) (2-4) % Baso % (Auto) (0-2) % Neut # (Auto) (4849-2695) /uL Lymph # (Auto) (6513-2309) /uL [place] # (Auto) (0-900) /uL Eos # (Auto) (0-450) /uL Baso # (Auto) (0-100) /uL PT (9.4-12.5) SECONDS INR (0.9-1.3) APTT (25.1-36.5) SECONDS Sodium (137-145) mmol/L Potassium (3.4-5.1) mmol/L Chloride (98-107) mmol/L Carbon Dioxide (22-32) mmol/L BUN (7-17) mg/dL Creatinine (0.52-1.04) mg/dL Estimated GFR (>60) mL/min BUN/Creatinine Ratio (6-22) Glucose (80-110) mg/dL Lactate (0.7-2.1) mmol/L Calcium (8.4-10.2) mg/dL Total Bilirubin (0.2-1.3) mg/dL AST (14-36) IU/L ALT (<35) IU/L Alkaline Phosphatase (38-126) U/L Ammonia < 9 L (9-30) umol/L Total Creatine Kinase (30-135) U/L Troponin I (0.01-0.034) ng/mL Total Protein (6.3-8.2) g/dL Albumin (3.5-5.0) g/dL Globulin (1.7-4.1) g/dL Albumin/Globulin Ratio (1.0-2.8) Procalcitonin (<0.5) ng/mL TSH (0.47-4.68) uIU/mL Urine Color Urine Appearance Urine pH (4.5-8.0) Ur Specific [employer] (1.000-1.035) Urine Protein (Negative) Urine Glucose (UA) (Negative) g/dL Urine Ketones (NEGATIVE) Urine Occult Blood (Negative) Urine Nitrate (Negative) Urine Bilirubin (NEGATIVE) Urine Urobilinogen (0.2) E.U./dL Ur Leukocyte Esterase (NEGATIVE) Urine RBC (0-5/HPF) Urine WBC (0-5/HPF) Ur Squamous Epith Cells (0-5/HPF) Triple Phos Crystals Amorphous Sediment Urine Bacteria (None) Ur Culture Indicated? Vol Urine Centrifuged Salicylates (<20) mg/dL U Opiates 300ng/mL cut (Negative) Ur Oxycodone Screen (Negative) Urine Methadone Screen (Negative) Acetaminophen (10-30) ug/mL Ur Barbiturates Screen (Negative) U Tricyclic Antidepress (Negative) Ur Phencyclidine Scrn (Negative) Ur Amphetamines Screen (Negative) U Methamphetamines Scrn (Negative) Ur MDMA Scrn (Ecstasy) (Negative) U Benzodiazepines Scrn (Negative) Urine Cocaine Screen (Negative) U Marijuana (THC) Screen (Negative) Urine Specific [employer] (Normal) Ethyl Alcohol ( - 10) mg/dL Ur Creatinine (Normal) Point of Care Testing Glucose POC [address] scan - head: Radiologist's Impression: PROCEDURE: CT HEAD/BRAIN WO CON INDICATIONS: ams TECHNIQUE: Noncontrast 4.5 mm thick angled axial sections acquired from the foramen magnum to the vertex, with coronal and sagittal reformats. For radiation dose reduction, the following was used: automated exposure control, adjustment of mA and/or kV according to patient size. COMPARISON: [facility], CT, CT HEAD/BRAIN WO CON, 03/31/2019, 19:00. FINDINGS: Image quality: Diagnostic. CSF spaces: Basal cisterns are patent. No extra-axial fluid collections. The ventricles are symmetric in size and shape. Brain: No intracranial bleeds or masses. There is cerebral volume loss for age, with resultant ventricular and sulcal prominence. There are periventricular and deep white matter chronic small vessel ischemic changes. There is intracranial internal carotid artery atherosclerosis. Skull and face: Left height frontal parietal scalp hematoma and swelling is seen. Calvarium and visualized facial bones appear intact, without suspicious lesions. Sinuses: Visualized sinuses and mastoids are clear. IMPRESSION: 1. No CT evidence of acute intracranial pathology. 2. High left frontal parietal scalp hematoma and swelling. No gross acute skull fracture. Dictated by: Brent Fay M.D. on 10/17/2023 at 14:44 Chest x-ray: Radiologist's Impression: PROCEDURE: XR CHEST 1V INDICATIONS: confusion TECHNIQUE: One view of the chest was acquired. COMPARISON: [facility], , XR CHEST 1V, 01/18/2023, 17:47. FINDINGS: Surgical changes and devices: None. Lungs and pleura: Lungs are clear. No pleural effusions or pneumothorax. Mediastinum: Mediastinal contours appear normal. Heart size is normal. Bones and chest wall: No suspicious bony lesions. Overlying soft tissues appear unremarkable. IMPRESSION: No acute cardiopulmonary pathology. Dictated by: Brent Fay M.D. on 10/17/2023 at 14:46 Approved by: Brent Fay M.D. on 10/17/2023 at 14:47 ECG Data Attestation: I personally reviewed and interpreted this ECG as follows: Prior ECG tracings: available for review Interpretation: Normal sinus rhythm rate 74 IN interval 194 QRS [address] changes no T-wave inversion EKG 2. 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 Pertinent findings: WBC 17.5 creatinine mildly elevated at 1.1, calcium 10.6 around her baseline troponin 0.081 with repeat 0.074 ammonia negative, tox screen negative, alcohol Tylenol and salicylates negative, lactate 1.1, procalcitonin 0.05, TSH 1.9 Independently reviewed EKG as above no ischemia Imaging studies independently reviewed: Head CT no acute intracranial process, although it does show high left frontal parietal scalp hematoma and swelling without fracture, chest x-ray no acute cardiopulmonary process Consultations: Dr. Pompa accepts patient Treatments: Sepsis fluids, Rocephin Re-evaluations: Patient is sleepy but responsive per family still not at baseline Discussion: Patient 88-year-old female history of advanced Alzheimer's disease presents today with altered mental status. She is incontinent of urine strongly suspect UTI. She is found to have leukocytosis of 17 normal lactate slightly elevated troponins. Urine has many bacteria. She initially was hypotensive however blood pressure quickly improved with IV fluids. 2 daughters at bedside both report that she is DNR DNI but agreeable to IV fluids and antibiotics but no aggressive measures. In regards to her indeterminate troponin medical management only. She has not have any sort of ischemic changes on her EKGs. Discharge Plan Departure Patient Disposition: Admitted As Inpatient Clinical Impression: Acute UTI, Acute metabolic encephalopathy Admit Date/Time: 10/17/23 15:45 Admit Provider: Evan Pompa
--- NOTE | 2023-10-17 16:07 | EKG_ITS ---
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
[2023-10-17 16:33] LABS: Troponin I 0.074 ng/mL (0.01-0.034)
--- NOTE | 2023-10-17 17:17 | P.HP_ITS ---
History of Present Illness History of Present Illness Date Patient Seen: 10/17/23 Time Patient Seen: 17:21 Chief complaint: Unresponsive Narrative: This is an 88 year old feamle with PMH of Alzheimer dementia, Obesity, DONOVAN, hyperparathyroidism, prior CVA, DM, HTN who presented with profound lethargy today. Daughters had a hard time waking the patient up this morning. They did not notice any focal deficits, but she kept falling back asleep and moaning, became unable to respond at times. They deny recent symptoms of cough, chest pain, palpitations, urinary frequency or dysuria, nausea, vomiting, or diarrhea. In the ER vitals were okay, WBC was 17.5, Cr mildly elevated at 1.17, calcium 10.6 (around her baseline), troponin 0.081 improved on repeat. UA had many bacteria, minimal WBC. Patient has had multiple previous UTIs and was low in volume. She was given ceftriaxone, urine culture did not reflex but was separately ordered, and admitted to medicine for further management of presumed sepsis due to acute cystitis. [facility] Medical History Alzheimer disease Atrophic vaginitis Cognitive dysfunction Urge incontinence Secondhand smoke exposure Recurrent urinary tract infection History of asthma Lower extremity edema Hyperparathyroidism Swelling of left hand Obesity (BMI 30-39.9) Infection of fingernail of left hand Laceration of hand Shortness of breath Hypoxemia UTI (urinary tract infection) CVA, old, alterations of sensations Nocturnal hypoxemia Obstructive sleep apnea of adult (~08/2018) Excessive daytime sleepiness CVA (cerebral vascular accident) Fractures (~1962) Foot pain (~1962) Eczema (~2013) Hepatitis C (~1948) Cataract (~2014) Diabetes mellitus (~1996) Contusion of rib on right side Contusion of right shoulder Cellulitis Surgical History History of knee replacement Anesthesia Personal history of spine surgery (~2005) Personal history of spine surgery (~2003) Family History Brother No problems noted. Father No problems noted. Mother No problems noted. Daughter Diabetes mellitus Hypertension Thyroid condition Son Diabetes mellitus Social History household members: family Smoking Status: Never smoker alcohol intake: never caffeine: Yes Meds Home Medications and Allergies Home Medications Medication Instructions Recorded Confirmed Type insulin syringe,safetyneedle 0.5 #500 ea 04/13/18 09/23/23 Rx mL 29 gauge x 1/2 (Assure ID Insulin Safety) miscellaneous medical supply #1 ea 03/02/19 09/23/[address] permit #1 ea 02/09/20 09/23/23 Rx blood sugar diagnostic (Glucocard See Rx Instructions .Route 12/23/20 09/23/23 Rx Expression strips) .COMPLEX #100 ea dulaglutide 1.5 mg/0.5 mL 1.5 mg (0.5 mL) SUBCUT QWEEK #2 mL 09/22/21 09/23/23 Rx subcutaneous pen injector pen needle, diabetic 31 gauge x See Rx Instructions .Route 11/21/21 09/23/23 Rx 5/16 (TRUEplus Pen Needle) .COMPLEX #100 ea blood-glucose meter,continuous #1 ea 02/13/22 09/23/23 Rx (Dexcom G6 Acute Dialysis Registered Nurse) blood-glucose sensor (Dexcom G6 #3 ea 02/13/22 09/23/23 Rx Sensor device) blood-glucose transmitter (Dexcom #1 ea 02/13/22 09/23/23 Rx G6 Transmitter device) cranberry PO 10/08/22 09/23/23 History estradiol 1 mg tablet 1 mg PO QAM #90 tabs 12/01/22 09/23/23 Rx levothyroxine 50 mcg tablet See Rx Instructions .Route 12/01/22 09/23/23 Rx .COMPLEX #90 tabs cranberry extract PO 06/22/23 09/23/23 History memantine 5 mg tablet 5 mg PO QAM #90 tabs 06/22/23 09/23/23 Rx losartan 25 mg tablet 25 mg PO DAILY #90 tabs 06/24/23 09/23/23 Rx lovastatin 20 mg tablet 20 mg PO QPM #90 tabs 06/24/23 09/23/23 Rx metformin 1,000 mg tablet 1,000 mg PO BIDCC #180 tabs 06/24/23 09/23/23 Rx loperamide 2 mg capsule (Imodium 2 mg PO QID PRN loose stool #60 08/30/23 09/23/23 Rx A-D) caps insulin glargine 100 unit/mL (3 40 unit (0.4 mL) SUBCUT QPM #15 mL 09/17/23 09/23/23 Rx mL) subcutaneous pen (Lantus Solostar U-100 Insulin) citalopram 10 mg tablet (Celexa) 10 mg PO DAILY #90 tabs 09/23/23 09/23/23 Rx amlodipine 10 mg tablet 10 mg PO DAILY #90 tabs 10/06/23 Rx furosemide 20 mg tablet See Rx Instructions .Route 10/06/23 Rx .COMPLEX #90 tabs Allergies Allergy/AdvReac Type Severity Reaction Status Date / Time penicillin G [PENICILLIN G] Allergy Intermediate Hives Verified 09/23/23 16:16 Review of Systems Review of Systems Narrative: All other systems reviewed with the patient's daughter and are negative unless otherwise stated. Exam Vital Signs (past 8 hours): - 10/17/23 13:44 10/17/23 13:46 10/17/23 13:47 Temperature 97.8 F Pulse Rate 74 75 Respiratory Rate 18 Blood Pressure 162/72 H 162/72 H Pulse Oximetry 96 94 Oxygen Delivery Method Room Air 10/17/23 13:47 10/17/23 14:00 10/17/23 14:15 Temperature Pulse Rate 74 75 73 Respiratory Rate 17 Blood Pressure Pulse Oximetry 96 96 95 Oxygen Delivery Method 10/17/23 14:15 10/17/23 14:35 10/17/23 14:37 Temperature Pulse Rate 71 Respiratory Rate Blood Pressure 152/67 H 162/70 H Pulse Oximetry Oxygen Delivery Method 10/17/23 14:37 10/17/23 15:00 10/17/23 15:01 Temperature Pulse Rate 71 70 Respiratory Rate 21 19 Blood Pressure 168/84 H Pulse Oximetry 96 Oxygen Delivery Method Room Air 10/17/23 15:01 10/17/23 15:30 10/17/23 15:31 Temperature Pulse Rate 73 69 Respiratory Rate 23 17 Blood Pressure 168/98 H Pulse Oximetry 97 Oxygen Delivery Method 10/17/23 15:31 10/17/23 16:00 10/17/23 16:30 Temperature Pulse Rate 70 68 69 Respiratory Rate 13 21 21 Blood Pressure Pulse Oximetry 97 96 97 Oxygen Delivery Method Oxygen Delivery Method Room Air Narrative Exam Narrative: General:? Obese female, sonorous but arousable HEENT:? Normocephalic, atraumatic, extraocular muscles intact, oral pharynx is clear and mucous membranes are moist. Neck: supple and symmetric, trachea is midline, no cervical adenopathy. Chest:? Normal AP diameter and contour without kyphoscoliosis, no tachypnea, equal chest rise bilaterally. Lungs:? CTA b/l no wheezing rhonchi or rales. Cardio:?RRR no m/r/g. Abdomen: S NT ND. Musculoskeletal:? Muscle strength and tone are equal within normal limits, no deformity. Extremities: trace bilateral edema, non-pitting, LLE > RLE Skin:? Pale,? Warm to touch,dry and intact without rashes, ulcerations or petechiae.? Neuro:? Alert and orientated to name and city,?? left facial asymmetry with smile but daughters dont see any difference to baseline. No deficits in sensation to light touch. Psych:? Patient has a well-kept appearance, appropriate affect, mental status attitude thought context and judgment are appropriate for age. Objective ECG Impression: NSR Labs 10/17/23 14:00 10/17/23 14:00 Labs: Laboratory Results - last 24 hr 10/17/23 10/17/23 10/17/23 14:00 14:14 14:14 WBC 17.5 H RBC 4.95 Hgb 14.4 Hct 44.5 MCV 89.9 MCH 29.2 MCHC 32.5 RDW 15.0 H Plt Count 274 Neut % (Auto) 89.1 H Lymph % (Auto) 6.4 L [place] % (Auto) 4.1 Eos % (Auto) 0.1 L Baso % (Auto) 0.3 Neut # (Auto) 72656 H Lymph # (Auto) 1100 [place] # (Auto) 700 Eos # (Auto) 0 Baso # (Auto) 0 PT 10.1 INR 0.9 APTT 33 Sodium 137 Potassium 5.0 Chloride 106 Carbon Dioxide 25 BUN 26 H Creatinine 1.17 H Estimated GFR 45 L BUN/Creatinine Ratio 22.2 H Glucose 162 H Lactate 1.1 Calcium 10.6 H Total Bilirubin 0.5 AST 19 ALT 15 Alkaline Phosphatase 74 Ammonia Total Creatine Kinase 28 L Troponin I 0.081 H Total Protein 7.4 Albumin 4.3 Globulin 3.1 Albumin/Globulin Ratio 1.4 Procalcitonin 0.050 TSH 1.90 Urine Color Yellow Urine Appearance Cloudy Urine pH 8.5 H Normal Ur Specific [place] 1.010 Urine Protein Trace H Urine Glucose (UA) Negative Urine Ketones Negative Urine Occult Blood Negative Urine Nitrate Negative Urine Bilirubin Negative Urine Urobilinogen 1.0 Ur Leukocyte Esterase Negative Urine RBC None seen Urine WBC 0-1/hpf Ur Squamous Epith Cells None seen Triple Phos Crystals Moderate Amorphous Sediment 3+ Urine Bacteria Many (>30) H Ur Culture Indicated? Cult not indicated Vol Urine Centrifuged Low vol <10ml (spun) A Salicylates < 1.0 U Opiates 300ng/mL cut Negative Ur Oxycodone Screen Negative Urine Methadone Screen Negative Acetaminophen < 10 Ur Barbiturates Screen Negative U Tricyclic Antidepress Negative Ur Phencyclidine Scrn Negative Ur Amphetamines Screen Negative U Methamphetamines Scrn Negative Ur MDMA Scrn (Ecstasy) Negative U Benzodiazepines Scrn Negative Urine Cocaine Screen Negative U Marijuana (THC) Screen Negative Urine Specific [place] Normal Ethyl Alcohol < 10 Ur Creatinine Normal 10/17/23 10/17/23 14:23 16:02 WBC RBC Hgb Hct MCV MCH MCHC RDW Plt Count Neut % (Auto) Lymph % (Auto) [place] % (Auto) Eos % (Auto) Baso % (Auto) Neut # (Auto) Lymph # (Auto) [place] # (Auto) Eos # (Auto) Baso # (Auto) PT INR APTT Sodium Potassium Chloride Carbon Dioxide BUN Creatinine Estimated GFR BUN/Creatinine Ratio Glucose Lactate Calcium Total Bilirubin AST ALT Alkaline Phosphatase Ammonia < 9 L Total Creatine Kinase Troponin I 0.074 H Total Protein Albumin Globulin Albumin/Globulin Ratio Procalcitonin TSH Urine Color Urine Appearance Urine pH Ur Specific [place] Urine Protein Urine Glucose (UA) Urine Ketones Urine Occult Blood Urine Nitrate Urine Bilirubin Urine Urobilinogen Ur Leukocyte Esterase Urine RBC Urine WBC Ur Squamous Epith Cells Triple Phos Crystals Amorphous Sediment Urine Bacteria Ur Culture Indicated? Vol Urine Centrifuged Salicylates U Opiates 300ng/mL cut Ur Oxycodone Screen Urine Methadone Screen Acetaminophen Ur Barbiturates Screen U Tricyclic Antidepress Ur Phencyclidine Scrn Ur Amphetamines Screen U Methamphetamines Scrn Ur MDMA Scrn (Ecstasy) U Benzodiazepines Scrn Urine Cocaine Screen U Marijuana (THC) Screen Urine Specific [place] Ethyl Alcohol Ur Creatinine Assessment & Plan Assessment & Plan narrative: 1. Sepsis secondary to acute cystitis with acute metabolic encephalopathy, elevated creatinine - patient was GCS 13 on my evaluation, but is more responsive now after initial therapies and initially 10-12 on presentation. - differential does include hypercapnea will check ABG (PCO2 41 just now with respiratory therapy) - continue IV fluids, until mentation improved NPO. Nursing can perform bedside swallow if more alert prior to diet initiation - continue ceftriaxone 1g q24 hours for presumed acute cystitis - follow up urine and blood cultures - consider MRI for further evaluation if no improvement in mentation, though no definite signs of stroke on exam and patient improving. - ammonia <9. - palomares placed in ER, okay to continue for strict Is and O2 in setting of sepsis. 2. HTN - hold home antihypertensive in setting of above sepsis for now 3. Alzheimer's dementia - PT / OT once more alert, continue home memantine when able. - daughter's are able to care for patient at home, normally patient is able to do most of her ADLs but requires some assistance. 4. Hyperparathyroidism - Calcium stable at 10.6, continue to follow with BMP. 5. DONOVAN - patient non-compliant with CPAP, will hold on Cpap therapy. Code: DNR/ DNI, okay with pressors and ICU care, surrogate is patient's daughter Malu (MARKO, other daughter is Talia) DVT: Lovenox daily I have utilized all available immediate resources to obtain, update, or review the patient's current medications. Dispo: patient admitted under inpatient status. Unclear if will be able to discharge home or possible SNF, will have PT/OT evaluations once more alert. Additional history obtained via discussions with the ER provider, Respiratory therapy, and patient's daughters. These discussions contributed to the creation of the above assessment and plan. I have reviewed patient's presenting documentation, labs, and imaging personally. Time-Based Coding :: [TOTAL MINUTES] spent with patient and on the chart (including review of chart, obtaining history, exam, reviewing outside data, placing orders, documenting exam and treatment plan, and counseling patient) on [DATE]. Scores GCS Jalil coma scale eye opening: To sound Jalil coma scale verbal response: Confused Jalil coma scale motor response: Obey commands [place] coma scale total score: 13 SOFA PaO2/FIO2: >=400 mmHg Platelets: >= 150 Bilirubin: < 1.2 mg/dL Hypotension: MAP >= 70 mmHg [place] Coma Scale: 10-12 Renal: < 1.2 mg/dL SOFA Score: 2
[2023-10-17] MEDS: SODIUM CHLORIDE 0.9% 1,000 ML 75 ML IV (17:34)
[2023-10-17 17:56] LABS: pH ABG 7.38 (7.35-7.45)
[2023-10-17 17:57] LABS: Base Excess ABG -0.7 mmol/L (-2-3); Delivery System RA; Fractionated Inspired Oxygen 20; HCO3 ABG 24 mmol/L (23-27); Oxygen Saturation ABG 97 % (95-100); PO2 ABG 88 mmHg (80-100); TCO2 ABG 24 mmol/L (23-27)
[2023-10-17 17:58] LABS: Allen Test for ABG Passed? Yes, Passed
--- NOTE | 2023-10-17 19:46 | PC.NURSE ---
Admit note Pt arrived on floor, vital signs WNL, oriented only to person, very drowsy and somnolent but would rouse to voice and touch. Pt able to respond to basic commands when roused, did not appear to be in distress, and would fall back asleep quickly. Full bed bath performed, pt bridged, heels floated, Q2 turns. Photo of pressure sore on buttocks taken by hospital phone. Pt has scalp hematoma and is normally ambulatory with walker per daughters. Daughters did not remember patient falling but said pt could have fallen at home in past and they might not have noticed/been informed by pt. Per ED RN, Nicole placed for comfort care. Provider said to keep Nicole in place for now for accurate I/O.
[2023-10-17] MEDS: INSULIN GLARGINE 100 UNIT/ML 3ML PEN 15 UNIT SUBCUT (20:35)
[2023-10-18] VITALS (8 sets, daily range): BP systolic 117–137; BP diastolic 50–59; PULSE 63–74; RESP 15–18; TEMP 36.1–36.8; O2SAT 94–98
[2023-10-18] MEDS: SODIUM CHLORIDE 0.9% 1,000 ML 75 ML IV (06:18)
[2023-10-18 06:41] LABS: Add Manual Diff / Slide Review NO; Basophils Absolute Auto 100 /uL (0-100); Basophils Percent Auto 0.6 % (0-2); Eosinophils Absolute Auto 300 /uL (0-450); Eosinophils Percent Auto 2.7 % (2-4); Hematocrit 38.4 % (36-46); Hemoglobin 12.5 g/dL (12.0-16.0); Lymphocytes Absolute Auto 2300 /uL (1100-4500); Lymphocytes Percent Auto 21.8 % (25-40); Mean Corpuscular HGB Conc 32.5 % (30-36); Mean Corpuscular Hemoglobin 29.5 PG (26-34); Mean Corpuscular Volume 90.9 fL (80-100); Monocytes Absolute Auto 700 /uL (0-900); Monocytes Percent Auto 6.9 % (3-14); Neutrophils Absolute Auto 7300 /uL (1500-7000); Platelet Count 225 X10^3/uL (150-400); Red Blood Cell Count 4.23 X10^6/uL (4.0-5.2); Red Cell Distribution Width 14.6 % (11.6-14.8); White Blood Cell Count 10.7 X10^3/uL (4.5-11.0)
[2023-10-18 06:59] LABS: Alanine Aminotransferase 9 IU/L (<35); Albumin Globulin Ratio 1.3 (1.0-2.8); Alkaline Phosphatase 50 U/L (38-126); Aspartate Aminotransferase 15 IU/L (14-36); BUN Creatinine Ratio 17.4 (6-22); Bilirubin Total 0.4 mg/dL (0.2-1.3); Blood Urea Nitrogen 16 mg/dL (7-17); Calcium 9.3 mg/dL (8.4-10.2); Carbon Dioxide 22 mmol/L (22-32); Chloride 115 mmol/L (98-107); Estimated Glomerular Filt Rate > 60 mL/min (>60); Globulin 2.4 g/dL (1.7-4.1); Glucose 65 mg/dL (80-110); HEMOLYSIS < 15 (0-50); Magnesium 1.8 mg/dL (1.6-2.3); Potassium 4.1 mmol/L (3.4-5.1); Sodium 139 mmol/L (137-145); Total Protein 5.4 g/dL (6.3-8.2)
--- NOTE | 2023-10-18 07:54 | PC.NURSE ---
Low BG noted on morning labs, patient sleeping in bed upon this RN's arrival. Aroused easily to voice and smiling this morning. Alert to self and knows here daughter, talkative and would like a vanilla ensure. She states her blood sugar is always low in the morning. Dr. Carroll notified and ok to advance diet now that patient is alert. Patient swallowing water without difficulty and then drank ensure. Continue to monitor.
--- NOTE | 2023-10-18 08:14 | PM.PN.1 ---
Subjective Subjective Interval history: From H&P: This is an 88 year old feamle with PMH of Alzheimer dementia, Obesity, DONOVAN, hyperparathyroidism, prior CVA, DM, HTN who presented with profound lethargy today. Daughters had a hard time waking the patient up this morning. They did not notice any focal deficits, but she kept falling back asleep and moaning, became unable to respond at times. They deny recent symptoms of cough, chest pain, palpitations, urinary frequency or dysuria, nausea, vomiting, or diarrhea. In the ER vitals were okay, WBC was 17.5, Cr mildly elevated at 1.17, calcium 10.6 (around her baseline), troponin 0.081 improved on repeat. UA had many bacteria, minimal WBC. Patient has had multiple previous UTIs and was low in volume. She was given ceftriaxone, urine culture did not reflex but was separately ordered, and admitted to medicine for further management of presumed sepsis due to acute cystitis. S: She was much better today. No chest pain, or abdominal pain. Her mental status is much better. Exam Vital Signs (past 8 hours): - 10/18/23 04:00 10/18/23 05:00 Temperature 97.1 F L Pulse Rate 67 Respiratory Rate 18 Blood Pressure 117/50 L Pulse Oximetry 95 95 Oxygen Delivery Method Room Air Oxygen Flow Rate 0 Oxygen Delivery Method Room Air Oxygen Flow Rate 0 Narrative Exam Narrative: NAD, alert and oriented. Fluent speech. Lungs are clear, normal rate and effort. Heart is regular, no murmur gallop or rub. Abdomen is soft, non distended. Extremities are free of edema. Objective Labs 10/18/23 06:03 10/18/23 06:03 Labs: Laboratory Results - last 24 hr 10/17/23 10/17/23 10/17/23 14:00 14:14 14:14 WBC 17.5 H RBC 4.95 Hgb 14.4 Hct 44.5 MCV 89.9 MCH 29.2 MCHC 32.5 RDW 15.0 H Plt Count 274 Neut % (Auto) 89.1 H Lymph % (Auto) 6.4 L [place] % (Auto) 4.1 Eos % (Auto) 0.1 L Baso % (Auto) 0.3 Neut # (Auto) 74727 H Lymph # (Auto) 1100 [place] # (Auto) 700 Eos # (Auto) 0 Baso # (Auto) 0 PT 10.1 INR 0.9 APTT 33 ABG Sample Site ABG pH ABG pCO2 ABG pO2 ABG HCO3 ABG Total CO2 ABG O2 Saturation ABG Base Excess O2 Delivery Device FiO2 Sodium 137 Potassium 5.0 Chloride 106 Carbon Dioxide 25 BUN 26 H Creatinine 1.17 H Estimated GFR 45 L BUN/Creatinine Ratio 22.2 H Glucose 162 H Lactate 1.1 Calcium 10.6 H Magnesium Total Bilirubin 0.5 AST 19 ALT 15 Alkaline Phosphatase 74 Ammonia Total Creatine Kinase 28 L Troponin I 0.081 H Total Protein 7.4 Albumin 4.3 Globulin 3.1 Albumin/Globulin Ratio 1.4 Procalcitonin 0.050 TSH 1.90 Urine Color Yellow Urine Appearance Cloudy Urine pH 8.5 H Normal Ur Specific [place] 1.010 Urine Protein Trace H Urine Glucose (UA) Negative Urine Ketones Negative Urine Occult Blood Negative Urine Nitrate Negative Urine Bilirubin Negative Urine Urobilinogen 1.0 Ur Leukocyte Esterase Negative Urine RBC None seen Urine WBC 0-1/hpf Ur Squamous Epith Cells None seen Triple Phos Crystals Moderate Amorphous Sediment 3+ Urine Bacteria Many (>30) H Ur Culture Indicated? Cult not indicated Vol Urine Centrifuged Low vol <10ml (spun) A Salicylates < 1.0 U Opiates 300ng/mL cut Negative Ur Oxycodone Screen Negative Urine Methadone Screen Negative Acetaminophen < 10 Ur Barbiturates Screen Negative U Tricyclic Antidepress Negative Ur Phencyclidine Scrn Negative Ur Amphetamines Screen Negative U Methamphetamines Scrn Negative Ur MDMA Scrn (Ecstasy) Negative U Benzodiazepines Scrn Negative Urine Cocaine Screen Negative U Marijuana (THC) Screen Negative Urine Specific [place] Normal Ethyl Alcohol < 10 Ur Creatinine Normal 10/17/23 10/17/23 10/17/23 14:23 16:02 17:46 WBC RBC Hgb Hct MCV MCH MCHC RDW Plt Count Neut % (Auto) Lymph % (Auto) [place] % (Auto) Eos % (Auto) Baso % (Auto) Neut # (Auto) Lymph # (Auto) [place] # (Auto) Eos # (Auto) Baso # (Auto) PT INR APTT ABG Sample Site ABG pH 7.38 ABG pCO2 41.0 ABG pO2 88 ABG HCO3 24 ABG Total CO2 24 ABG O2 Saturation 97 ABG Base Excess -0.7 O2 Delivery Device Ra FiO2 20 Sodium Potassium Chloride Carbon Dioxide BUN Creatinine Estimated GFR BUN/Creatinine Ratio Glucose Lactate Calcium Magnesium Total Bilirubin AST ALT Alkaline Phosphatase Ammonia < 9 L Total Creatine Kinase Troponin I 0.074 H Total Protein Albumin Globulin Albumin/Globulin Ratio Procalcitonin TSH Urine Color Urine Appearance Urine pH Ur Specific [place] Urine Protein Urine Glucose (UA) Urine Ketones Urine Occult Blood Urine Nitrate Urine Bilirubin Urine Urobilinogen Ur Leukocyte Esterase Urine RBC Urine WBC Ur Squamous Epith Cells Triple Phos Crystals Amorphous Sediment Urine Bacteria Ur Culture Indicated? Vol Urine Centrifuged Salicylates U Opiates 300ng/mL cut Ur Oxycodone Screen Urine Methadone Screen Acetaminophen Ur Barbiturates Screen U Tricyclic Antidepress Ur Phencyclidine Scrn Ur Amphetamines Screen U Methamphetamines Scrn Ur MDMA Scrn (Ecstasy) U Benzodiazepines Scrn Urine Cocaine Screen U Marijuana (THC) Screen Urine Specific [place] Ethyl Alcohol Ur Creatinine 10/18/23 06:03 WBC 10.7 RBC 4.23 Hgb 12.5 Hct 38.4 MCV 90.9 MCH 29.5 MCHC 32.5 RDW 14.6 Plt Count 225 Neut % (Auto) 68.0 D Lymph % (Auto) 21.8 L [place] % (Auto) 6.9 Eos % (Auto) 2.7 Baso % (Auto) 0.6 Neut # (Auto) 7300 H Lymph # (Auto) 2300 [place] # (Auto) 700 Eos # (Auto) 300 Baso # (Auto) 100 PT INR APTT ABG Sample Site ABG pH ABG pCO2 ABG pO2 ABG HCO3 ABG Total CO2 ABG O2 Saturation ABG Base Excess O2 Delivery Device FiO2 Sodium 139 Potassium 4.1 Chloride 115 H Carbon Dioxide 22 BUN 16 Creatinine 0.92 Estimated GFR > 60 BUN/Creatinine Ratio 17.4 Glucose 65 L Lactate Calcium 9.3 Magnesium 1.8 Total Bilirubin 0.4 AST 15 ALT 9 Alkaline Phosphatase 50 Ammonia Total Creatine Kinase Troponin I Total Protein 5.4 L Albumin 3.0 L Globulin 2.4 Albumin/Globulin Ratio 1.3 Procalcitonin TSH Urine Color Urine Appearance Urine pH Ur Specific [place] Urine Protein Urine Glucose (UA) Urine Ketones Urine Occult Blood Urine Nitrate Urine Bilirubin Urine Urobilinogen Ur Leukocyte Esterase Urine RBC Urine WBC Ur Squamous Epith Cells Triple Phos Crystals Amorphous Sediment Urine Bacteria Ur Culture Indicated? Vol Urine Centrifuged Salicylates U Opiates 300ng/mL cut Ur Oxycodone Screen Urine Methadone Screen Acetaminophen Ur Barbiturates Screen U Tricyclic Antidepress Ur Phencyclidine Scrn Ur Amphetamines Screen U Methamphetamines Scrn Ur MDMA Scrn (Ecstasy) U Benzodiazepines Scrn Urine Cocaine Screen U Marijuana (THC) Screen Urine Specific [place] Ethyl Alcohol Ur Creatinine [facility] Medical History Alzheimer disease Atrophic vaginitis Cognitive dysfunction Urge incontinence Secondhand smoke exposure Recurrent urinary tract infection History of asthma Lower extremity edema Hyperparathyroidism Swelling of left hand Obesity (BMI 30-39.9) Infection of fingernail of left hand Laceration of hand Shortness of breath Hypoxemia UTI (urinary tract infection) CVA, old, alterations of sensations Nocturnal hypoxemia Obstructive sleep apnea of adult (~08/2018) Excessive daytime sleepiness CVA (cerebral vascular accident) Fractures (~1962) Foot pain (~1962) Eczema (~2013) Hepatitis C (~1948) Cataract (~2014) Diabetes mellitus (~1996) Contusion of rib on right side Contusion of right shoulder Cellulitis Surgical History History of knee replacement Anesthesia Personal history of spine surgery (~2005) Personal history of spine surgery (~2003) Family History Brother No problems noted. Father No problems noted. Mother No problems noted. Daughter Diabetes mellitus Hypertension Thyroid condition Son Diabetes mellitus Social History household members: family Smoking Status: Never smoker alcohol intake: never caffeine: Yes Assessment & Plan Assessment & Plan narrative: 1. Sepsis secondary to acute cystitis with acute metabolic encephalopathy and elevated creatinine, present on admission and improved. - patient was GCS 13 on my evaluation, but is more responsive now after initial therapies and initially 10-12 on presentation. - palomares placed in ER, okay to continue for strict Is and O2 in setting of sepsis. 2. Cystitis, present on admission and improving. 3. Acute metabolic encephalopathy, present on admission and resolved. 4. DOUGLAS, present on admission and improving. 5. HTN, present on admission and active. - hold home antihypertensive in setting of above sepsis for now 6. Alzheimer's dementia, present on admission and active. - PT / OT once more alert, continue home memantine when able. - daughter's are able to care for patient at home, normally patient is able to do most of her ADLs but requires some assistance. 7. Hyperparathyroidism, present on admission and active. - Calcium stable at 10.6, continue to follow with BMP. 8. DONOVAN, present on admission and active. - patient non-compliant with CPAP, will hold on Cpap therapy. Code: DNR/ DNI, okay with pressors and ICU care, surrogate is patient's daughter Malu (POA, other daughter is Talia) DVT: Lovenox daily I have utilized all available immediate resources to obtain, update, or review the patient's current medications. Dispo: patient admitted under inpatient status. Unclear if will be able to discharge home or possible SNF, will have PT/OT evaluations once more alert. Time-Based Coding :: 20 min spent with patient and on the chart (including review of chart, obtaining history, exam, reviewing outside data, placing orders, documenting exam and treatment plan, and counseling patient) on 10/17. Quality VTE Deep Vein Thrombosis/Pulmonary Embolism Present on Admission: No
[2023-10-18] MEDS: cefTRIAXone 1,000 MG in SODIUM CHLORIDE 0.9% 100 ML 200 MG IV (10:44)
--- NOTE | 2023-10-18 12:00 | CM.DANOTE ---
Initial DCP Assessment Note Pt is an 88 yo female, resident [facility], arrives with acute encephalopathy, admitted for management of acute UTI PCP: Keenan Stout Payer: JACQUELINE/BOBOP Reviewed chart, met w/patient and her two daughters, Malu and Talia. Patient does not participate in conversation this visit. Patient lives with daughter Malu who provides all care, Talia visits often and can assist patient when Malu needs to leave the house. Patient is never left alone, sleeps most of the day according to family. Daughters anticipate patient will return home with them upon discharge and ask for a referral to [facility] for RN/PT. MONO Mason, kindly agreed to send this referral. F2F and HH order have been completed. No barriers identified at this time to patient's safe discharge home w/family to assist; [facility]. CM team will plan to follow clinical course closely. ARIES Pelayo Discharge Planning/Care Management CM Discharge Assessment Start: 10/18/23 11:57 Freq: Status: Active Protocol: Document 10/18/23 11:57 PAULINA (Rec: 10/18/23 12:00 [id number]) Discharge Planning Assessment Assigned Ota ARIES Quinn DPOA/Assigned Designee Name pritesh Sanchez Contact Information [phone] Advance Directives? Yes Advance Directives on File No History Provided By Family Member,Medical Record Prior Living Arrangements House Household Members family Type of transporation used prior to Relies on Others admit Independent with ADL's No Is patient alert and oriented? No: Alz Dementia Needs Assistance With Bathing,Grooming,Meal Prep, Toileting,Managing Medications ,Home Chores / Shopping Patient/Family Preference Home with Home Health Barriers to Discharge No Comment Home w/family to assist, [facility] Discharge Plan Home with Home Health Transportation Arrangement Daughter Referrals Initiated Home Health Additional Comment Family requests [facility] Medicare Choice List Provided Yes SNF/HH Preference [facility] Has Agency SNF been contacted Yes
[2023-10-18] MEDS: INSULIN LISPRO 100 UNIT/ML 3ML VIAL SUBCUT (12:37)
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
[2023-10-18] MEDS: INSULIN GLARGINE 100 UNIT/ML 3ML PEN 15 UNIT SUBCUT (20:59)
[2023-10-18] MEDS: SODIUM CHLORIDE 0.9% FLUSH 10 ML IV (21:03)
[2023-10-19] VITALS: BP 130/57; PULSE 74; RESP 17; TEMP 36.5; O2SAT 95
[2023-10-19 05:45] VITALS: BP 133/54; PULSE 63; RESP 16; TEMP 36.4; O2SAT 97
[2023-10-19 06:15] LABS: Add Manual Diff / Slide Review NO; Basophils Absolute Auto 0 /uL (0-100); Basophils Percent Auto 0.6 % (0-2); Eosinophils Absolute Auto 300 /uL (0-450); Hematocrit 39.3 % (36-46); Hemoglobin 12.7 g/dL (12.0-16.0); Lymphocytes Absolute Auto 1700 /uL (1100-4500); Mean Corpuscular HGB Conc 32.4 % (30-36); Mean Corpuscular Hemoglobin 29.1 PG (26-34); Mean Corpuscular Volume 89.9 fL (80-100); Monocytes Absolute Auto 600 /uL (0-900); Monocytes Percent Auto 7.5 % (3-14); Neutrophils Absolute Auto 5900 /uL (1500-7000); Neutrophils Percent Auto 67.9 % (50-75); Platelet Count 233 X10^3/uL (150-400); Red Blood Cell Count 4.37 X10^6/uL (4.0-5.2); Red Cell Distribution Width 14.8 % (11.6-14.8); White Blood Cell Count 8.7 X10^3/uL (4.5-11.0)
[2023-10-19 06:29] LABS: Alanine Aminotransferase 10 IU/L (<35); Albumin 2.9 g/dL (3.5-5.0); Albumin Globulin Ratio 1.1 (1.0-2.8); Alkaline Phosphatase 51 U/L (38-126); Aspartate Aminotransferase 16 IU/L (14-36); BUN Creatinine Ratio 13.7 (6-22); Bilirubin Total 0.3 mg/dL (0.2-1.3); Blood Urea Nitrogen 13 mg/dL (7-17); Calcium 9.7 mg/dL (8.4-10.2); Carbon Dioxide 24 mmol/L (22-32); Chloride 111 mmol/L (98-107); Estimated Glomerular Filt Rate 58 mL/min (>60); Globulin 2.7 g/dL (1.7-4.1); Glucose 139 mg/dL (80-110); HEMOLYSIS < 15 (0-50); Magnesium 1.7 mg/dL (1.6-2.3); Potassium 4.3 mmol/L (3.4-5.1); Sodium 135 mmol/L (137-145); Total Protein 5.6 g/dL (6.3-8.2)
[2023-10-19] MEDS: INSULIN LISPRO 100 UNIT/ML 3ML VIAL SUBCUT (08:52)
[2023-10-19 09:00] VITALS: BP 126/60; PULSE 68; RESP 17; TEMP 36.7; O2SAT 97
--- NOTE | 2023-10-19 09:21 | PM.DS.1 ---
History of Present Illness History of Present Illness Chief complaint: Unresponsive Narrative: This is an 88 year old feamle with PMH of Alzheimer dementia, Obesity, DONOVAN, hyperparathyroidism, prior CVA, DM, HTN who presented with profound lethargy today. Daughters had a hard time waking the patient up this morning. They did not notice any focal deficits, but she kept falling back asleep and moaning, became unable to respond at times. They deny recent symptoms of cough, chest pain, palpitations, urinary frequency or dysuria, nausea, vomiting, or diarrhea. In the ER vitals were okay, WBC was 17.5, Cr mildly elevated at 1.17, calcium 10.6 (around her baseline), troponin 0.081 improved on repeat. UA had many bacteria, minimal WBC. Patient has had multiple previous UTIs and was low in volume. She was given ceftriaxone, urine culture did not reflex but was separately ordered, and admitted to medicine for further management of presumed sepsis due to acute cystitis. Discharge Providers Provider Date of admission: 10/17/23 15:45 Discharge Date: 10/19/23 Primary care physician: Keenan Stout MD Consults: 10/18/23 10:22 Consult to Home Health Routine Comment: Reason For Exam: Home health RN/PT upon discharge 10/18/23 17:30 Consult to Occupational Therapy Evaluate & Treat Comment: Physician Instructions: Evaluate and treat Consult to Physical Therapy Evaluate & Treat Comment: Physician Instructions: Evaluate and Treat Discharge provider: Camden Carroll MD Summary Hospital Course Discharge Diagnosis: 1. Sepsis secondary to acute cystitis with acute metabolic encephalopathy and elevated creatinine, present on admission and resolved. 2. Cystitis, present on admission and improving. 3. Acute septic encephalopathy, present on admission and resolved. 4. DOUGLAS, present on admission and improving. 5. HTN, present on admission and active. - hold home antihypertensive in setting of above sepsis for now 6. Alzheimer's dementia, present on admission and active. - PT / OT once more alert, continue home memantine when able. - daughter's are able to care for patient at home, normally patient is able to do most of her ADLs but requires some assistance. 7. Hyperparathyroidism, present on admission and active. - Calcium stable at 10.6, continue to follow with BMP. 8. DONOVAN, present on admission and active. - patient non-compliant with CPAP, will hold on Cpap therapy. 9. Obesity class 1, BMI 32. Present on admission and stable. Hospital Course: She was admitted with altered mental status and UTI and treated with IV antibiotics. She had complete improvement of her altered mental status and was at baseline on days 2 and 3 of her admission. Urine culture growing E coli which was sensitive to ceftriaxone and cephalexin. She will be discharged on 5 additional days of antibiotics with close follow up. A Nicole catheter was placed in the ED, this is removed prior to discharge. Her daughters in the room at the time of discharge and were agreeable with the plan and our standard bring her back for recurrent symptoms including confusion. Status at Discharge Cognitive/behavioral status at discharge: at baseline, oriented Functional status at discharge: uses cane/walker Overall status at discharge: patient is back to baseline Time Spent with Patient Time spent: Greater than 30 minutes Exam Vital Signs (past 8 hours): - 10/19/23 05:45 Temperature 97.6 F Pulse Rate 63 Respiratory Rate 16 Blood Pressure 133/54 L Pulse Oximetry 97 Oxygen Flow Rate 0 Oxygen Delivery Method Room Air Oxygen Flow Rate 0 Narrative Exam Narrative: NAD, alert and oriented. Fluent speech. Lungs are clear, normal rate and effort. Heart is regular, no murmur gallop or rub. Abdomen is soft, non distended. Extremities are free of edema. Objective ECG Impression: NSR Imaging Chest x-ray: Radiologist's impression: No acute cardiopulmonary pathology. CT scan - head: Radiologist's impression: 1. No CT evidence of acute intracranial pathology. 2. High left frontal parietal scalp hematoma and swelling. No gross acute skull fracture. Labs 10/19/23 06:04 10/19/23 06:04 Labs: Laboratory Results - last 24 hr 10/19/23 06:04 WBC 8.7 RBC 4.37 Hgb 12.7 Hct 39.3 MCV 89.9 MCH 29.1 MCHC 32.4 RDW 14.8 Plt Count 233 Neut % (Auto) 67.9 Lymph % (Auto) 20.0 L Granite % (Auto) 7.5 Eos % (Auto) 4.0 Baso % (Auto) 0.6 Neut # (Auto) 5900 Lymph # (Auto) 1700 Granite # (Auto) 600 Eos # (Auto) 300 Baso # (Auto) 0 Sodium 135 L Potassium 4.3 Chloride 111 H Carbon Dioxide 24 BUN 13 Creatinine 0.95 Estimated GFR 58 L BUN/Creatinine Ratio 13.7 Glucose 139 H Calcium 9.7 Magnesium 1.7 Total Bilirubin 0.3 AST 16 ALT 10 Alkaline Phosphatase 51 Total Protein 5.6 L Albumin 2.9 L Globulin 2.7 Albumin/Globulin Ratio 1.1 [facility] Medical History Alzheimer disease Atrophic vaginitis Cognitive dysfunction Urge incontinence Secondhand smoke exposure Recurrent urinary tract infection History of asthma Lower extremity edema Hyperparathyroidism Swelling of left hand Obesity (BMI 30-39.9) Infection of fingernail of left hand Laceration of hand Shortness of breath Hypoxemia UTI (urinary tract infection) CVA, old, alterations of sensations Nocturnal hypoxemia Obstructive sleep apnea of adult (~08/2018) Excessive daytime sleepiness CVA (cerebral vascular accident) Fractures (~1962) Foot pain (~1962) Eczema (~2013) Hepatitis C (~1948) Cataract (~2014) Diabetes mellitus (~1996) Contusion of rib on right side Contusion of right shoulder Cellulitis Surgical History History of knee replacement Anesthesia Personal history of spine surgery (~2005) Personal history of spine surgery (~2003) Family History Brother No problems noted. Father No problems noted. Mother No problems noted. Daughter Diabetes mellitus Hypertension Thyroid condition Son Diabetes mellitus Social History household members: family Smoking Status: Never smoker alcohol intake: never caffeine: Yes Discharge Assessment & Plan Assessment and Plan Assessment: 1. Sepsis secondary to acute cystitis with acute metabolic encephalopathy and elevated creatinine, present on admission and resolved. 2. Cystitis, present on admission and improving. 3. Acute septic encephalopathy, present on admission and resolved. 4. DOUGLAS, present on admission and improving. 5. HTN, present on admission and active. - hold home antihypertensive in setting of above sepsis for now 6. Alzheimer's dementia, present on admission and active. - PT / OT once more alert, continue home memantine when able. - daughter's are able to care for patient at home, normally patient is able to do most of her ADLs but requires some assistance. 7. Hyperparathyroidism, present on admission and active. - Calcium stable at 10.6, continue to follow with BMP. 8. DONOVAN, present on admission and active. - patient non-compliant with CPAP, will hold on Cpap therapy. 9. Obesity class 1, BMI 32. Present on admission and stable. Plan of Treatment: Discharge home to the care of her daughters, antibiotics will be given orally for 5 additional days. This will be cephalexin q.i.d., 500 mg. Follow up for recurrent symptoms of confusion, or fevers. Discharge Plan Discharge Plan Patient Disposition: Home Provider Discharge Comment: Stable for discharge home on oral antibiotics for urine tract infection, primary care within 1 week. Discharge orders & Medications Prescriptions: New cephalexin 500 mg capsule 500 mg PO QID Qty: 20 0RF Continued (DME) [facility] See Dose Instructions .Route .MEDSUPPLY Qty: 1 0RF Dose Instruction: Disabled Parking Permit Rx Instructions: Disabled Parking Permit Glucocard Expression Strip See Rx Instructions .ROUTE .COMPLEX Qty: 100 2RF Dose Instruction: USE TO CHECK BLOOD SUGAR FROM FINGER TWICE DAILY Rx Instructions: USE TO CHECK BLOOD SUGAR FROM FINGER TWICE DAILY pen needle, diabetic [TRUEplus Pen Needle] 31 gauge x 5/16 needle See Rx Instructions .ROUTE .COMPLEX Qty: 100 3RF Dose Instruction: USE FOR INSULIN INJECTIONS Rx Instructions: USE FOR INSULIN INJECTIONS (DME) Dexcom G6 [employer] Secretary [facility] See Rx Instructions .Route Qty: 1 0RF Rx Instructions: As directed (DME) Dexcom G6 Transmitter Device See Rx Instructions .Route Qty: 1 0RF Rx Instructions: As directed ([facility]) Dexcom G6 Sensor Device See Rx Instructions .Route Qty: 3 0RF Rx Instructions: As directed (DME) insulin syringe,safetyneedle [Assure ID Insulin Safety] 0.5 mL 29 gauge x 1/2 syringe See Dose Instructions .ROUTE .MEDSUPPLY Qty: 500 0RF Dose Instruction: As directed Rx Instructions: As directed ([facility]) disabled parking permit See Rx Instructions .ROUTE .MEDSUPPLY Qty: 1 0RF Rx Instructions: As directed. patient qualifies for disabled parking as per attached form. cranberry extract 9 cap PO DAILY citalopram 10 mg tablet 10 mg PO BEDTIME estradiol 1 mg tablet 1 mg PO DAILY amlodipine 10 mg tablet 10 mg PO DAILY levothyroxine 50 mcg tablet 50 mcg PO DAILY@0600 losartan 25 mg tablet 25 mg PO QPM furosemide 20 mg tablet 20 mg PO DAILY lovastatin 20 mg tablet 5 mg PO DAILY memantine 5 mg tablet 5 mg PO BEDTIME insulin glargine [Lantus Solostar U-100 Insulin] 100 unit/mL (3 mL) insulin pen 40 unit SUBCUT QPM metformin 1,000 mg tablet 1,000 mg PO BID guaifenesin [Mucinex] 600 mg Tablet Extended Release 12hr 600 mg PO DAILY Medication counseling provided by Pharmacist: No Follow up/Referrals: Keenan Stout MD [Primary Care Provider] - Activity Restrictions/Additional Instructions: As tolerated. Discharge Health Status Multidrug resistant organism: No MDRO Diet/Activity/Treatments Diet: Carb-consistent/Diabetic Skin/Wound/Dressing Care Report to your healthcare provider any signs of infection, such as:: chills, fever and increased pain Visit Report/Discharge Packet Instructions: DI for Urinary Tract Infection (UTI) Stand Alone Forms: Patient Portal/API, Naloxone Standing Order [facility]ADOH Discharge Data Primary Care Provider: Keenan Stout Quality VTE Deep Vein Thrombosis/Pulmonary Embolism Present on Admission: No
--- NOTE | 2023-10-19 09:34 | CM.DPC ---
DCP Cont. Reviewed EMR and team rounds for status updates. Pt has been medically cleared for d/c, family will be transporting her home. No further DCP needs indicated at this time.
[2023-10-19] MEDS: cefTRIAXone 1,000 MG in SODIUM CHLORIDE 0.9% 100 ML 200 MG IV (10:01)
[2023-10-19] MEDS: SODIUM CHLORIDE 0.9% FLUSH 10 ML IV (10:02)
--- NOTE | 2023-10-19 10:30 | PT.IIE ---
Current Diagnoses Sepsis, unspecified organism (10/17/23) Surgical History (Last Reviewed 10/18/23 @ 08:15 by Camden Carroll MD) Anesthesia History of knee replacement Personal history of spine surgery (~2003) Personal history of spine surgery (~2005) Medical History (Last Reviewed 10/18/23 @ 08:15 by Camden Carroll MD) Alzheimer disease Atrophic vaginitis Cataract (~2014) Cellulitis Cognitive dysfunction Contusion of rib on right side Contusion of right shoulder CVA (cerebral vascular accident) CVA, old, alterations of sensations Diabetes mellitus (~1996) Eczema (~2013) Excessive daytime sleepiness Foot pain (~1962) Fractures (~1962) Hepatitis C (~1948) History of asthma Hyperparathyroidism Hypoxemia Infection of fingernail of left hand Laceration of hand Lower extremity edema Nocturnal hypoxemia Obesity (BMI 30-39.9) Obstructive sleep apnea of adult (~08/2018) Recurrent urinary tract infection Secondhand smoke exposure Shortness of breath Swelling of left hand Urge incontinence UTI (urinary tract infection) Physical Therapy Inpatient Evaluation/Re-Eval M1 PT/OT-IP Prior Functional Status Start: 10/19/23 13:05 Freq: NEEDED Status: Active Protocol: Document 10/19/23 10:30 AB (Rec: 10/19/23 13:18 AB [id number]) Medical Review Prior Functional Status Medical History Reviewed Yes Communication able to make needs known; with memory issues Mobility and Gait per pt's daughter: pt has 24/7 assist at home and able to ambulate using 4WW. pt has h/ o falls. daughter stated that pt does not walk much and at home only walks ~ 15 ft due to pt not wanting to walk Social History Household Members family Living Arrangements House Number of Floors (Floors) One Floor Number of Stairs To Enter/Railing? 3 steps B rails to enter the house Home Environment High Toilet,Built-In Shower Seat Home Equipment Four Wheel Walker,Grab Bars Near Toilet,Grab Bars In Shower Additional Social History Comment pt has a walk in tub shower with built in seat pt has L sided bed rail M2 PT-IP Current Condition Start: 10/19/23 13:05 Freq: NEEDED Status: Active Protocol: Document 10/19/23 10:30 AB (Rec: 10/19/23 13:18 AB [id number]) Physical Therapy Current Condition Current Condition Evaluation Date 10/19/23 Treatment Diagnosis UTI; acute metabolic encephalopathy; difficulty in walking Onset Date 10/17/23 M3 PT-IP Subjective Start: 10/19/23 13:05 Freq: NEEDED Status: Active Protocol: Document 10/19/23 10:30 AB (Rec: 10/19/23 13:18 AB [id number]) Subjective Physical Therapy Visit Type Type Initial Evaluation Visit Start Time 10:30 Visit Stop Time 11:25 Number of WOOD HEEL CEMENTER Visits 0 Physical Therapy Visit Comments Patient Comments agreeable to do PT M4 PT-IP Mobility and Gait Start: 10/19/23 13:05 Freq: NEEDED Status: Active Protocol: Document 10/19/23 10:30 AB (Rec: 10/19/23 13:18 AB [id number]) PT-Bed Mobility Assessment Supine to Sit Supine to Sit Standby Assistance,Head of Bed Elevated PT-Transfer Assessment Sit to and From Stand Sit to and from Stand Contact Guard Assistance,1 Person Assistance,Use of Upper Extremities Equipment Transfer Assistive Device Gait Belt,Front Wheeled Walker ,4 Wheeled Walker Orthotic/Prosthetic Devices or Brace: No Transfers Transfer Destination Chair Transfer Technique ambulated Transfer Ability Level of Assist Contact Guard Assistance,1 Person Assistance,Use of Upper Extremities Comments Mobility Comments pt supine in bed and agreeable to do PT. daughter in room with pt. obtained PLOF and home set up from pt. daughter confirmed/clarified pt's responses to questions. BP in supine: 135/61. pt completed supine to sit SBA with use of side of FWW as bed rail. pt able to sit on EOB SBA. completed sit to stand CGA and ambulated to the chair using FWW CGA. pt uses a 4WW at home but per daughter does not usually use the brakes. educated pt regarding use of 4WW and use of brakes for safety. pt completed sit to stand from the chair cGA and ambulated with 4WW CGA and cues for safety ~ 40 ft. stair climbing training: pt completed up/down steps using B rails CGA. assisted pt back to her room. pt ambulated from w/c to chair using 4WW cGA. positioned pt on the chair. call light and table placed within reach. informed daughter to cue or remind pt on using brakes for safety and daughter understood . Gait Assessment Gait Gait Assistance Required: Contact Guard Assist,1 Person Assist Distance (Feet) 40 Able to Maintain Weight Bearing Status Yes During Gait Assistive Devices Assistive Device Gait Belt,Front Wheeled Walker ,4 Wheeled Walker Orthotic/Prosthetic Devices or Brace: No Gait Deviations General Gait Pattern Antalgic,Decreased Stride Length,Decreased Feet Clearance Factors Limiting Gait Function Factors Limiting Gait Function Decreased Activity Tolerance, Decreased Strength,Limited Range of Motion,Pain,Poor Balance,Poor Safety Awareness Stair Climbing Assessment Evaluation Level of Assist On Stairs Contact Guard Assistance Devices Stair Climbing Assistive Devices Left Railing,Right Railing Technique/Endurance Stair Climbing Direction Ascend and Descend Stair Climbing Technique Step to Step Number of Steps Climbed 3 Query Text: Stair Climbing Set # Repetitions (reps) 1 PT-Balance Assessment Sitting Balance and Reactions Static Sitting Balance Ability Good Dynamic Sitting Balance Ability Good Standing Balance and Reactions Static Standing Balance Ability Fair Dynamic Standing Balance Ability Fair Device Used 4WW M5 PT-IP Objective Assessments Start: 10/19/23 13:05 Freq: NEEDED Status: Active Protocol: Document 10/19/23 10:30 AB (Rec: 10/19/23 13:18 AB [id number]) Orientation Orientation/Cognition Level of Alertness Confusional State Orientation Name,Place,Situation Safety Awareness Decreased Safety Awareness Memory Description Short Term Impaired,Mcc Impaired Gross Range of Motion Lower Extremity ROM Assessment Within Functional Limits Strength Lower Extremity Strength Assessment Within Functional Limits Muscle Tone Muscle Tone WNL Yes M6 PT-IP Treatment Start: 10/19/23 13:05 Freq: NEEDED Status: Active Protocol: Document 10/19/23 10:30 AB (Rec: 10/19/23 13:18 AB [id number]) Physical Therapy Treatment Education Education Provided Safety M7 PT-IP Assessment and Plan Start: 10/19/23 13:05 Freq: NEEDED Status: Active Protocol: Document 10/19/23 10:30 AB (Rec: 10/19/23 13:18 AB [id number]) PT Summary Assessment and Plan Potential Rehabilitation Potential Fair Status of Condition at Evaluation Stable Summary Impairments Pain,ROM,Strength,Balance, Coordination,Sensation,Tone, Cognition,Bed Mobility, Transfers,Gait,Activity Tolerance Assessment Summary pt is an 88 y/o F who is admitted for UTI, acute metabolic encephalopathy. pt has dx of Alzheimer's dementia . pt requiring CGA with mobility using 4WW. pt lives with her daughter and has 24/7 assist at home. pt plans to go home today. Goals Bed Mobility Goal Independent Transfer Goal Independent,Four Wheeled Walker Gait Goal Independent,Four Wheel Walker Gait Distance 100 Other Goals up/down 3 steps B rails SBA Days to Meet Goals 5 Frequency of Treatment Frequency Of Treatment Once a Day Treatment Plan Physical Therapy Treatment Plan Bed Mobility Training,Transfer Training,Gait Training, Therapeutic Exercise,Balance Retraining,Post Op Education, Discharge Planning,Hot or Cold Pack,Neuromuscular Re-ed, Coordination Retraining,Manual Therapy Precautions Other Precautions falls Recommendations To Nursing Amount of Assist Needed 1 Person Assist Discharge Recommendations PT Discharge Recommendations Home with 24/7 Assist Available Transportation Needs at Discharge Private Vehicle
--- NOTE | 2023-10-19 11:32 | OT.IPNOTE ---
Pt being discharged and her caregiver present and states has no OT needs for pt. Pt going home and to have home health .
--- NOTE | 2023-10-20 08:21 | PC.WOUNDPHOT ---
Late Entry: photo taken 10/16 at 1647
== END 2023-10-19 11:45 | disposition home or self-care (01) | DRG 871 ==
LOC: ED 15:40 → AC 15:46
PROVIDERS: Admitting Provider Internal Medicine; Emergency Provider Emergency Medicine; PCP Family Medicine; Referring Provider Emergency Medicine; Visit Provider Internal Medicine
DX: A41.9 Sepsis, unspecified organism (principal); G93.41 Metabolic encephalopathy; N30.00 Acute cystitis without hematuria; I10 Essential (primary) hypertension; G30.9 Alzheimer's disease, unspecified; F02.80 Dementia in other diseases classified elsewhere, unspecified severity, without behavioral disturbance, psychotic disturbance, mood disturbance, and anxiety; E21.3 Hyperparathyroidism, unspecified; G47.33 Obstructive sleep apnea (adult) (pediatric); E66.8 Other obesity; B96.20 Unspecified Escherichia coli [E. coli] as the cause of diseases classified elsewhere; E11.9 Type 2 diabetes mellitus without complications; E78.5 Hyperlipidemia, unspecified; Z79.84 Long term (current) use of oral hypoglycemic drugs; Z79.4 Long term (current) use of insulin; Z86.73 Personal history of transient ischemic attack (TIA), and cerebral infarction without residual deficits; Z66 Do not resuscitate; Z68.32 Body mass index [BMI] 32.0-32.9, adult
CPT/HCPCS: 36415; 36600; 70450; 71045; 80053; 80305; 80320; 80329; 81001; 82140; 82550; 82962; 83605; 83735; 84145; 84443; 84484; 85025; 85610; 85730; 87040; 87077; 87086; 87186; 93005; 96365; 97161; 97530; 99284; G0480; J0696; J1815

== ENCOUNTER 2023-11-05 01:27 | Emergency (ER) | payer MEDICARE, SELFPAY ==
[2023-10-17 17:03] VITALS: BMI 32.6
[2023-11-05] VITALS (14 sets, daily range): BP systolic 96–152; BP diastolic 55–75; PULSE 62–80; RESP 12–18; TEMP 36.6; O2SAT 94–98; BMI 34.4
--- NOTE | 2023-11-05 01:43 | DI.CT.S_ITS ---
PROCEDURE: CT HEAD/BRAIN WO CON INDICATIONS: alt MSE TECHNIQUE: Noncontrast 4.5 mm thick angled axial sections acquired from the foramen magnum to the vertex, with coronal and sagittal reformats. For radiation dose reduction, the following was used: automated exposure control, adjustment of mA and/or kV according to patient size. COMPARISON: [facility], CT, CT HEAD/BRAIN WO CON, 10/17/2023, 14:22. FINDINGS: Image quality: Diagnostic CSF spaces: Basal cisterns are patent. Lateral ventricles are symmetric. Volume: Vascular calcifications. Periventricular white matter disease is commonly seen with chronic microangiopathy. Volume loss is present. These findings are moderate Brain: No gross loss of pinedo-white differentiation. No acute intracranial hemorrhage. Craniofacial structures: No significant paranasal sinus opacity. Possible left parietal contusion, similar to prior exam. IMPRESSION: No acute intracranial hemorrhage. Possible scalp contusion in the left parietal region, correlate clinical exam. No significant discrepancy from prelim report. Dictated by: Cameron Omalley M.D. on 11/05/2023 at 8:07 Approved by: Cameron Omalley M.D. on 11/05/2023 at 8:09
[2023-11-05 01:52] LABS: Add Manual Diff / Slide Review NO; Basophils Absolute Auto 100 /uL (0-100); Basophils Percent Auto 1.6 % (0-2); Eosinophils Absolute Auto 500 /uL (0-450); Eosinophils Percent Auto 5.3 % (2-4); Hematocrit 41.3 % (36-46); Hemoglobin 13.4 g/dL (12.0-16.0); INR 0.9 (0.9-1.3); Lymphocytes Absolute Auto 2400 /uL (1100-4500); Lymphocytes Percent Auto 26.4 % (25-40); Mean Corpuscular HGB Conc 32.3 % (30-36); Mean Corpuscular Hemoglobin 28.9 PG (26-34); Mean Corpuscular Volume 89.4 fL (80-100); Monocytes Absolute Auto 700 /uL (0-900); Monocytes Percent Auto 7.8 % (3-14); Neutrophils Absolute Auto 5500 /uL (1500-7000); Neutrophils Percent Auto 58.9 % (50-75); Platelet Count 276 X10^3/uL (150-400); Prothrombin Time 9.9 SECONDS (9.4-12.5); Red Blood Cell Count 4.62 X10^6/uL (4.0-5.2); Red Cell Distribution Width 14.6 % (11.6-14.8); White Blood Cell Count 9.3 X10^3/uL (4.5-11.0)
[2023-11-05 01:54] LABS: PTT Partial Thromboplastin Tim 34 SECONDS (25.1-36.5)
[2023-11-05 01:57] LABS: Alanine Aminotransferase 14 IU/L (<35); Albumin 3.7 g/dL (3.5-5.0); Albumin Globulin Ratio 1.3 (1.0-2.8); Alkaline Phosphatase 58 U/L (38-126); Aspartate Aminotransferase 19 IU/L (14-36); BUN Creatinine Ratio 28.1 (6-22); Bilirubin Total 0.3 mg/dL (0.2-1.3); Blood Urea Nitrogen 39 mg/dL (7-17); Calcium 10.5 mg/dL (8.4-10.2); Carbon Dioxide 28 mmol/L (22-32); Chloride 103 mmol/L (98-107); Estimated Glomerular Filt Rate 37 mL/min (>60); Globulin 2.9 g/dL (1.7-4.1); Glucose 140 mg/dL (80-110); Lactate (Lactic Acid) 2.4 mmol/L (0.7-2.1); Potassium 4.8 mmol/L (3.4-5.1); Sodium 134 mmol/L (137-145); Total Protein 6.6 g/dL (6.3-8.2)
[2023-11-05] MEDS: SODIUM CHLORIDE 0.9% 1,000 ML 150 ML IV (01:58)
[2023-11-05 02:13] LABS: Ammonia (NH3) < 9 umol/L (9-30)
[2023-11-05 02:16] LABS: Ethanol (ETOH) < 10 mg/dL
--- NOTE | 2023-11-05 02:27 | ED_ITS ---
HPI - General Adult General Chief complaint: Altered Mental Status Stated complaint: lethargic Time Seen by Provider: 11/05/23 01:40 Source: family and EMS Mode of arrival: EMS History of Present Illness HPI narrative: 88yo female with history of diabetes, lives with daughter who received smartphone alert for patient low blood sugar level, daughter tried to arouse patient with difficulty, called 911, EMS found low blood sugar level, IV dextrose given but mental status still decreased, transported. Daughter at bedside with patient does not recall any recent illness, fever, cough, vomiting, diarrhea, falls, trauma, new medications, or medication dose changes. No shaking or seizure activity known, no incontinence or urine or stool. Related Data Home Medications Medication Instructions Recorded Confirmed cranberry extract 9 cap PO DAILY 06/22/23 10/29/23 amlodipine 10 mg tablet 10 mg PO DAILY 10/17/23 10/29/23 citalopram 10 mg tablet 10 mg PO BEDTIME 10/17/23 10/29/23 estradiol 1 mg tablet 1 mg PO DAILY 10/17/23 10/29/23 furosemide 20 mg tablet 20 mg PO DAILY 10/17/23 10/29/23 insulin glargine 100 unit/mL (3 40 unit SUBCUT QPM 10/17/23 10/29/23 mL) subcutaneous pen (Lantus Solostar U-100 Insulin) levothyroxine 50 mcg tablet 50 mcg PO DAILY@0600 10/17/23 10/29/23 losartan 25 mg tablet 25 mg PO QPM 10/17/23 10/29/23 lovastatin 20 mg tablet 5 mg PO DAILY 10/17/23 10/29/23 memantine 5 mg tablet 5 mg PO BEDTIME 10/17/23 10/29/23 metformin 1,000 mg tablet 1,000 mg PO BID 10/17/23 10/29/23 guaifenesin 600 mg tablet, 600 mg PO DAILY 10/18/23 10/29/23 extended release 12 hr (Mucinex) Previous Rx's Medication Instructions Recorded insulin syringe,safetyneedle 0.5 #500 ea 04/13/18 mL 29 gauge x 1/2 (Assure ID Insulin Safety) miscellaneous medical supply #1 ea 03/02/19 disabled parking permit #1 ea 02/09/20 blood sugar diagnostic (Glucocard See Rx Instructions .Route 12/23/20 Expression strips) .COMPLEX #100 ea pen needle, diabetic 31 gauge x See Rx Instructions .Route 11/21/21 5/16 (TRUEplus Pen Needle) .COMPLEX #100 ea blood-glucose meter,continuous #1 ea 02/13/22 (Dexcom G6 Patient Scheduling Manager) blood-glucose sensor (Dexcom G6 #3 ea 02/13/22 Sensor device) blood-glucose transmitter (Dexcom #1 ea 02/13/22 G6 Transmitter device) loperamide 2 mg capsule (Imodium 2 mg PO QID PRN loose stool #60 10/29/23 A-D) caps quetiapine 25 mg tablet (Seroquel) 25 mg PO BEDTIME #90 tabs 10/29/23 Allergies Allergy/AdvReac Type Severity Reaction Status Date / Time penicillin G [PENICILLIN G] Allergy Intermediate Hives Verified 10/29/23 10:18 Review of Systems Review of Systems Narrative: see HPI Patient History Medical History Alzheimer disease Atrophic vaginitis Cognitive dysfunction Urge incontinence Secondhand smoke exposure Recurrent urinary tract infection History of asthma Lower extremity edema Hyperparathyroidism Swelling of left hand Obesity (BMI 30-39.9) Infection of fingernail of left hand Laceration of hand Shortness of breath Hypoxemia UTI (urinary tract infection) CVA, old, alterations of sensations Nocturnal hypoxemia Obstructive sleep apnea of adult (~08/2018) Excessive daytime sleepiness CVA (cerebral vascular accident) Fractures (~1962) Foot pain (~1962) Eczema (~2013) Hepatitis C (~1948) Cataract (~2014) Diabetes mellitus (~1996) Contusion of rib on right side Contusion of right shoulder Cellulitis Surgical History History of knee replacement Anesthesia Personal history of spine surgery (~2005) Personal history of spine surgery (~2003) Family History Brother No problems noted. Father No problems noted. Mother No problems noted. Daughter Diabetes mellitus Hypertension Thyroid condition Son Diabetes mellitus Social History household members: family Smoking Status: Never smoker alcohol intake: never caffeine: Yes Smoking Status: Never smoker alcohol intake frequency: 0-2 drinks per day Substance Use Type: does not use Exam Narrative Exam Narrative: GENERAL: Well-developed patient, in mild distress. Looking around, speaks slowly HEAD: Atraumatic. Normocephalic. EYES: Pupils equal round and reactive. Extraocular motions intact. No scleral icterus. No injection or drainage. ENT: Nose without bleeding, purulent drainage. Throat without erythema, tonsillar hypertrophy or exudate. Airway patent. NECK: Trachea midline. Non tender CARDIOVASCULAR: Regular rate and rhythm without murmurs, gallops, or rubs. RESPIRATORY: Clear to auscultation. Breath sounds equal bilaterally. No wheezes, rales, or rhonchi. GASTROINTESTINAL: Abdomen soft, non-tender, nondistended. EXTREMITIES: No edema or joint tenderness. BACK: Nontender without deformity or crepitance. No flank tenderness. NEURO: AOx3. Nonfocal motor exam SKIN: No rash or erythema of visible areas Initial Vital Signs Initial Vital Signs: Vital Signs Blood Pressure 130/63 11/05/23 01:33 Course Orders Ordered: Discontinued Medications Sodium Chloride (Normal Saline 0.9%) 1,000 mls @ 150 mls/hr IV CONT JUSTIN Last Infusion: 11/05/23 02:47 Dose: Infused Documented By: Admin: 11/05/23 01:58 Dose: 150 mls/hr Documented By: AUGUSTA Sodium Chloride (Normal Saline 0.9%) 1,000 mls @ 500 mls/hr IV BOLUS ONE Stop: 11/05/23 07:31 Vital Signs Vital signs: Vital Signs - 8 hr 11/05/23 01:33 11/05/23 01:38 11/05/23 02:00 Temperature 97.8 F Pulse Rate 80 67 Respiratory Rate 12 Blood Pressure 130/63 130/63 Pulse Oximetry 98 97 Oxygen Delivery Method Room Air Oxygen Flow Rate 11/05/23 02:01 11/05/23 02:01 11/05/23 02:30 Temperature Pulse Rate 68 62 Respiratory Rate Blood Pressure 108/70 Pulse Oximetry 97 98 Oxygen Delivery Method Oxygen Flow Rate 11/05/23 02:51 11/05/23 02:51 11/05/23 03:00 Temperature Pulse Rate 69 Respiratory Rate Blood Pressure 111/63 124/65 Pulse Oximetry 94 Oxygen Delivery Method Nasal Cannula Oxygen Flow Rate 2 11/05/23 03:00 11/05/23 03:30 11/05/23 03:30 Temperature Pulse Rate 68 74 Respiratory Rate 18 Blood Pressure 127/60 Pulse Oximetry 98 98 Oxygen Delivery Method Nasal Cannula Nasal Cannula Oxygen Flow Rate 2 2 11/05/23 04:00 11/05/23 04:01 11/05/23 04:01 Temperature Pulse Rate 73 76 Respiratory Rate Blood Pressure 152/75 H Pulse Oximetry 98 98 Oxygen Delivery Method Nasal Cannula Nasal Cannula Oxygen Flow Rate 2 2 11/05/23 04:30 11/05/23 04:31 11/05/23 04:31 Temperature Pulse Rate 65 66 Respiratory Rate 18 Blood Pressure 96/55 L Pulse Oximetry 98 98 Oxygen Delivery Method Nasal Cannula Nasal Cannula Oxygen Flow Rate 2 2 11/05/23 05:00 11/05/23 05:00 Temperature Pulse Rate 63 Respiratory Rate Blood Pressure 105/58 L Pulse Oximetry 97 Oxygen Delivery Method Nasal Cannula Oxygen Flow Rate 2 Medical Decision Making Lab Data Lab results reviewed: Yes I reviewed the patient's lab results. 11/05/23 01:30 11/05/23 01:30 Labs: Lab Results 11/05/23 11/05/23 11/05/23 Range/Units 01:30 01:53 03:05 WBC 9.3 (4.5-11.0) X10^3/uL RBC 4.62 (4.0-5.2) X10^6/uL Hgb 13.4 (12.0-16.0) g/dL Hct 41.3 (36-46) % MCV 89.4 (80-100) fL MCH 28.9 (26-34) PG MCHC 32.3 (30-36) % RDW 14.6 (11.6-14.8) % Plt Count 276 (150-400) X10^3/uL Neut % (Auto) 58.9 (50-75) % Lymph % (Auto) 26.4 (25-40) % [place] % (Auto) 7.8 (3-14) % Eos % (Auto) 5.3 H (2-4) % Baso % (Auto) 1.6 (0-2) % Neut # (Auto) 5500 (9739-7239) /uL Lymph # (Auto) 2400 (6297-1384) /uL [place] # (Auto) 700 (0-900) /uL Eos # (Auto) 500 H (0-450) /uL Baso # (Auto) 100 (0-100) /uL PT 9.9 (9.4-12.5) SECONDS INR 0.9 (0.9-1.3) APTT 34 (25.1-36.5) SECONDS Sodium 134 L (137-145) mmol/L Potassium 4.8 (3.4-5.1) mmol/L Chloride 103 (98-107) mmol/L Carbon Dioxide 28 (22-32) mmol/L BUN 39 H (7-17) mg/dL Creatinine 1.39 H (0.52-1.04) mg/dL Estimated GFR 37 L (>60) mL/min BUN/Creatinine Ratio 28.1 H (6-22) Glucose 140 H (80-110) mg/dL Lactate 2.4 H (0.7-2.1) mmol/L Calcium 10.5 H (8.4-10.2) mg/dL Total Bilirubin 0.3 (0.2-1.3) mg/dL AST 19 (14-36) IU/L ALT 14 (<35) IU/L Alkaline Phosphatase 58 (38-126) U/L Ammonia < 9 L (9-30) umol/L Total Creatine Kinase 29 L (30-135) U/L Troponin I < 0.012 (0.01-0.034) ng/mL Total Protein 6.6 (6.3-8.2) g/dL Albumin 3.7 (3.5-5.0) g/dL Globulin 2.9 (1.7-4.1) g/dL Albumin/Globulin Ratio 1.3 (1.0-2.8) TSH 3.79 D (0.47-4.68) uIU/mL Prolactin 27.4 H (3.0-18.6) ng/mL Urine Color Yellow Urine Appearance Clear Urine pH 6.0 (4.5-8.0) Ur Specific [place] <=1.005 (1.000-1.035) Urine Protein Negative (Negative) Urine Glucose (UA) Negative (Negative) g/dL Urine Ketones Negative (NEGATIVE) Urine Occult Blood Negative (Negative) Urine Nitrate Negative (Negative) Urine Bilirubin Negative (NEGATIVE) Urine Urobilinogen 0.2 (0.2) E.U./dL Ur Leukocyte Esterase Negative (NEGATIVE) Urine RBC None seen (0-5/HPF) Urine WBC 0-1/hpf (0-5/HPF) Ur Squamous Epith Cells 0-1 /hpf (0-5/HPF) Urine Bacteria None seen (None) Ur Culture Indicated? Cult not indicated Vol Urine Centrifuged 10ml (spun) U Opiates 300ng/mL cut Negative (Negative) Ur Oxycodone Screen Negative (Negative) Urine Methadone Screen Negative (Negative) Ur Barbiturates Screen Negative (Negative) U Tricyclic Antidepress Negative (Negative) Ur Phencyclidine Scrn Negative (Negative) Ur Amphetamines Screen Negative (Negative) U Methamphetamines Scrn Negative (Negative) Ur MDMA Scrn (Ecstasy) Negative (Negative) U Benzodiazepines Scrn Negative (Negative) Urine Cocaine Screen Negative (Negative) U Marijuana (THC) Screen Negative (Negative) Urine Specific [place] (Normal) Ethyl Alcohol < 10 ( - 10) mg/dL Ur Creatinine (Normal) 11/05/23 11/05/23 11/05/23 Range/Units 03:05 03:28 04:13 WBC (4.5-11.0) X10^3/uL RBC (4.0-5.2) X10^6/uL Hgb (12.0-16.0) g/dL Hct (36-46) % MCV (80-100) fL MCH (26-34) PG MCHC (30-36) % RDW (11.6-14.8) % Plt Count (150-400) X10^3/uL Neut % (Auto) (50-75) % Lymph % (Auto) (25-40) % [place] % (Auto) (3-14) % Eos % (Auto) (2-4) % Baso % (Auto) (0-2) % Neut # (Auto) (0796-7926) /uL Lymph # (Auto) (5002-1407) /uL [place] # (Auto) (0-900) /uL Eos # (Auto) (0-450) /uL Baso # (Auto) (0-100) /uL PT (9.4-12.5) SECONDS INR (0.9-1.3) APTT (25.1-36.5) SECONDS Sodium (137-145) mmol/L Potassium (3.4-5.1) mmol/L Chloride (98-107) mmol/L Carbon Dioxide (22-32) mmol/L BUN (7-17) mg/dL Creatinine (0.52-1.04) mg/dL Estimated GFR (>60) mL/min BUN/Creatinine Ratio (6-22) Glucose (80-110) mg/dL Lactate 2.2 H (0.7-2.1) mmol/L Calcium (8.4-10.2) mg/dL Total Bilirubin (0.2-1.3) mg/dL AST (14-36) IU/L ALT (<35) IU/L Alkaline Phosphatase (38-126) U/L Ammonia (9-30) umol/L Total Creatine Kinase (30-135) U/L Troponin I < 0.012 (0.01-0.034) ng/mL Total Protein (6.3-8.2) g/dL Albumin (3.5-5.0) g/dL Globulin (1.7-4.1) g/dL Albumin/Globulin Ratio (1.0-2.8) TSH (0.47-4.68) uIU/mL Prolactin (3.0-18.6) ng/mL Urine Color Urine Appearance Urine pH Normal (4.5-8.0) Ur Specific [place] (1.000-1.035) Urine Protein (Negative) Urine Glucose (UA) (Negative) g/dL Urine Ketones (NEGATIVE) Urine Occult Blood (Negative) Urine Nitrate (Negative) Urine Bilirubin (NEGATIVE) Urine Urobilinogen (0.2) E.U./dL Ur Leukocyte Esterase (NEGATIVE) Urine RBC (0-5/HPF) Urine WBC (0-5/HPF) Ur Squamous Epith Cells (0-5/HPF) Urine Bacteria (None) Ur Culture Indicated? Vol Urine Centrifuged U Opiates 300ng/mL cut (Negative) Ur Oxycodone Screen (Negative) Urine Methadone Screen (Negative) Ur Barbiturates Screen (Negative) U Tricyclic Antidepress (Negative) Ur Phencyclidine Scrn (Negative) Ur Amphetamines Screen (Negative) U Methamphetamines Scrn (Negative) Ur MDMA Scrn (Ecstasy) (Negative) U Benzodiazepines Scrn (Negative) Urine Cocaine Screen (Negative) U Marijuana (THC) Screen (Negative) Urine Specific [place] Normal (Normal) Ethyl Alcohol ( - 10) mg/dL Ur Creatinine Normal (Normal) Point of Care Testing Glucose POC 139 Point of care testing: Point of Care Testing Glucose POC 139 ECG Data Attestation: I personally reviewed and interpreted this ECG as follows: Interpretation: Normal sinus rhythm with rate of 70, no obvious ST segment elevation or depression changes. QRS 88, QTC 410. MDM Narrative Medical decision making narrative: 88-year-old female with altered mental status, history of diabetes, low sugar noted by daughter, who called 911, glucose low, IV glucose given en route, sugar was improved but mental status still not back to baseline after glucose raised. DDx consider postictal state from unwitnessed hypoglycemic seizure, underlying sepsis, stroke, intracranial hemorrhage, electrolyte disorder, encephalopathy, other. CT Head pending, labs pending including UA. EKG without obvious ischemia, troponin negative, will check inerval troponin. Lytes okay, repeat glucose improved. Mental status improving. UA negative. CT head without contrast. Impressions: ?Mild motion artifact limits assessment. Allowing for this, no acute intracranial findings.? See teleradiology report Repeat troponin negative Mental status further improved, took PO fluids, ambulated, daughter feels she is at baseline. Advised decreased insuling dose by half toady, follow glucose levels, contact PCP for further insulin regimen recommendations later today during open clinic hours. Home with daughter, return precautions discussed. Critical Care Time Critical Care Time Critical Care Time: Yes Total Critical Care Time: 31 Attestation: The high probability of a clinically significant, sudden or life threatening deterioration of the [cerebrovascular, endocrine, neurologic, metabolic, cardiopulmonary] systems required my full and direct attention, intervention and personal management. The aggregate critical care time was [31] minutes. This time is in addition to time spent performing reported procedures but includes the following: [x] Data Review and interpretation [x] Patient assessment and monitoring of vital signs [x] Documentation [x] Medication orders and management Discharge Plan Departure Patient Disposition: Home Clinical Impression: Altered mental status, Hypoglycemia Activity Restrictions/Additional Instructions: Confusion altered mental status, low glucose noted, IV dextrose glucose given, improved mental status. CT head showed no acute changes. Lab works that he has showed no significant abnormalities. EKG and serial troponins without obvious ischemic changes, no evidence for heart attack. Electrolytes unremarkable. Improved mental status, able to ambulate and take oral fluids. Consider holding diabetes medications, restart at half-strength until oral fluids and feeds taken regularly, to try titrating backup to current/recent regimen. Contact your local provider regarding further diabetic medication instructions. Return earlier to this/nearest emergency department for any change worsening symptoms or any concerns prior Prescriptions: No Action (DME) miscellaneous medical supply Misc See Dose Instructions .Route .MEDSUPPLY Qty: 1 0RF Dose Instruction: Disabled Parking Permit Rx Instructions: Disabled Parking Permit Glucocard Expression Strip See Rx Instructions .ROUTE .COMPLEX Qty: 100 2RF Dose Instruction: USE TO CHECK BLOOD SUGAR FROM FINGER TWICE DAILY Rx Instructions: USE TO CHECK BLOOD SUGAR FROM FINGER TWICE DAILY pen needle, diabetic [TRUEplus Pen Needle] 31 gauge x 5/16 needle See Rx Instructions .ROUTE .COMPLEX Qty: 100 3RF Dose Instruction: USE FOR INSULIN INJECTIONS Rx Instructions: USE FOR INSULIN INJECTIONS (DME) Dexcom G6 Patient Scheduling Manager Misc See Rx Instructions .Route Qty: 1 0RF Rx Instructions: As directed (DME) Dexcom G6 Transmitter Device See Rx Instructions .Route Qty: 1 0RF Rx Instructions: As directed (DME) Dexcom G6 Sensor Device See Rx Instructions .Route Qty: 3 0RF Rx Instructions: As directed loperamide [Imodium A-D] 2 mg capsule 2 mg PO QID PRN (Reason: loose stool) Qty: 60 1RF (DME) insulin syringe,safetyneedle [Assure ID Insulin Safety] 0.5 mL 29 gauge x 1/2 syringe See Dose Instructions .ROUTE .MEDSUPPLY Qty: 500 0RF Dose Instruction: As directed Rx Instructions: As directed (DME) disabled parking permit See Rx Instructions .ROUTE .MEDSUPPLY Qty: 1 0RF Rx Instructions: As directed. patient qualifies for disabled parking as per attached form. cranberry extract 9 cap PO DAILY quetiapine [Seroquel] 25 mg tablet 25 mg PO BEDTIME Qty: 90 3RF citalopram 10 mg tablet 10 mg PO BEDTIME estradiol 1 mg tablet 1 mg PO DAILY amlodipine 10 mg tablet 10 mg PO DAILY levothyroxine 50 mcg tablet 50 mcg PO DAILY@0600 losartan 25 mg tablet 25 mg PO QPM furosemide 20 mg tablet 20 mg PO DAILY lovastatin 20 mg tablet 5 mg PO DAILY memantine 5 mg tablet 5 mg PO BEDTIME insulin glargine [Lantus Solostar U-100 Insulin] 100 unit/mL (3 mL) insulin pen 40 unit SUBCUT QPM metformin 1,000 mg tablet 1,000 mg PO BID guaifenesin [Mucinex] 600 mg Tablet Extended Release 12hr 600 mg PO DAILY Referrals: Keenan Stout MD [Primary Care Provider] - Stand Alone Forms: Patient Portal/API
[2023-11-05 02:38] LABS: Thyroid Stimulating Hormone 3.79 uIU/mL (0.47-4.68)
[2023-11-05 02:52] LABS: HEMOLYSIS 29 (0-50); Prolactin 27.4 ng/mL (3.0-18.6)
[2023-11-05 03:22] LABS: Reflexed Lactate in 2 Hours Y
[2023-11-05 03:23] LABS: Appearance Urine UA CLEAR; Bilirubin Urine UA NEGATIVE (NEGATIVE); Color Urine UA YELLOW; Glucose Urine UA NEGATIVE (Negative); Ketones Urine UA NEGATIVE (NEGATIVE); Leukocyte Esterase Urine UA NEGATIVE (NEGATIVE); Nitrite Urine UA NEGATIVE (Negative); Occult Blood Urine UA NEGATIVE (Negative); Protein Urine UA NEGATIVE (Negative); Specific Gravity Urine UA <=1.005 (1.000-1.035); Urobilinogen Urine UA 0.2 E.U./dL (0.2)
[2023-11-05 03:26] LABS: Ur Creatinine Normal (Normal); Ur Specific Gravity Normal (Normal); Urine Amphetamines Negative (Negative); Urine Barbiturates Negative (Negative); Urine Benzodiazepines Negative (Negative); Urine Cocaine Negative (Negative); Urine MDMA Negative (Negative); Urine Methadone Negative (Negative); Urine Methamphetamines Negative (Negative); Urine Opiates Negative (Negative); Urine Oxycodone Negative (Negative); Urine Phencyclidine Negative (Negative); Urine THC Negative (Negative); Urine Tricyclic Antidepressant Negative (Negative); Urine pH Normal (Normal)
[2023-11-05 03:44] LABS: Bacteria Urine None Seen; Culture Indicated Urine Cult Not Indicated; RBC Urine None Seen (0-5/HPF); Squamous Epithelial Cell Urine 0-1 /HPF (0-5/HPF); Urine Volume 10mL (spun); WBC Urine 0-1/HPF (0-5/HPF)
[2023-11-05 03:54] LABS: Creatine Kinase 29 U/L (30-135)
[2023-11-05 04:07] LABS: Troponin I < 0.012 ng/mL (0.01-0.034)
[2023-11-05 04:31] LABS: Lactate 2HR (Lactic Acid Rflx) 2.2 mmol/L (0.7-2.1)
[2023-11-05 04:44] LABS: Troponin I < 0.012 ng/mL (0.01-0.034)
--- NOTE | 2023-11-05 05:09 | PC.NURSE ---
While obtaining repeat blood work pt was able to respond to questions verbally and with gestures.
--- NOTE | 2023-11-05 05:38 | EKG_ITS ---
[address] [id number] [address] [address] Test Date: 2023-11-05 Pat Name: Isabella Lucero Department: Room: Gender: Female Batch Dumper: : [id number] Requested By: Order Number: [id number] Reading MD: Alber Laughlin MD Measurements Intervals [place] Rate: 70 P: OR: QRS: 12 QRSD: 88 T: 56 QT: 380 QTc: 410 Interpretive Statements Accelerated Junctional rhythm vs sinus with 1st degree AV block Low voltage QRS Electronically Signed On 11-05-2023 7:35:33 PDT by Alber Laughlin MD
== END 2023-11-05 05:59 | disposition home or self-care (01) ==
PROVIDERS: Emergency Provider Emergency Medicine; PCP Family Medicine
DX: R41.82 Altered mental status, unspecified (principal); E11.649 Type 2 diabetes mellitus with hypoglycemia without coma; Z79.899 Other long term (current) drug therapy
CPT/HCPCS: 36415; 70450; 80053; 80305; 80320; 81001; 82140; 82550; 82962; 83605; 84146; 84443; 84484; 85025; 85610; 85730; 87086; 93005; 93010; 96360; 99284

== ENCOUNTER → 2023-11-25 16:14 | Outpatient (CLI) | payer MEDICARE, SELFPAY ==
[2023-10-17 17:03] VITALS: BMI 32.6
[2023-11-25 16:26] LABS: Appearance Urine UA CLOUDY; Bilirubin Urine UA NEGATIVE (NEGATIVE); Color Urine UA YELLOW; Glucose Urine UA NEGATIVE (Negative); Ketones Urine UA NEGATIVE (NEGATIVE); Leukocyte Esterase Urine UA 3+ (NEGATIVE); Nitrite Urine UA NEGATIVE (Negative); Occult Blood Urine UA NEGATIVE (Negative); Protein Urine UA NEGATIVE (Negative)
[2023-11-25 16:29] LABS: pH Urine UA 7.5 (4.5-8.0)
[2023-11-25 16:36] LABS: Bacteria Urine Many (>30); RBC Urine None Seen (0-5/HPF); Urine Volume 10mL (spun); WBC Urine 5-10/HPF (0-5/HPF)
[2023-11-25 16:37] LABS: Amorphous Sediment Urine 1+; Culture Indicated Urine Specimen Cultured; Squamous Epithelial Cell Urine 10-30 /HPF (0-5/HPF)
== END ==
PROVIDERS: PCP Family Medicine; Referring Provider Nurse Practitioner Family; Visit Provider Nurse Practitioner Family
DX: N39.0 Urinary tract infection, site not specified (principal)
CPT/HCPCS: 81001; 87086

== ENCOUNTER 2023-11-26 11:14 | Inpatient (IN) | payer MEDICARE, SELFPAY ==
[2023-10-17 17:03] VITALS: BMI 32.6
[2023-11-26] VITALS (15 sets, daily range): BP systolic 102–140; BP diastolic 54–78; PULSE 58–75; RESP 16–20; TEMP 36.7–37; O2SAT 85–98; BMI 34.7
--- NOTE | 2023-11-26 11:29 | DI.RAD.S_ITS ---
PROCEDURE: XR CHEST 1V INDICATIONS: altered mental status TECHNIQUE: One view of the chest was acquired. COMPARISON: [facility], CR, XR CHEST 1V, 10/17/2023, 14:28. FINDINGS: Surgical changes and devices: None. Lungs and pleura: Lungs are clear. No pleural effusions or pneumothorax. Mediastinum: Mediastinal contours appear normal. Heart size is top-normal. Bones and chest wall: No suspicious bony lesions. Overlying soft tissues appear unremarkable. IMPRESSION: No evidence acute pulmonary process. Dictated by: Olu Garcia M.D. on 11/26/2023 at 12:44 Approved by: Olu Garcia M.D. on 11/26/2023 at 12:44
--- NOTE | 2023-11-26 11:29 | EKG_ITS ---
[address] [address] Test Date: 2023-11-26 Pat Name: Isabella Lucero Department: [facility] Room: Gender: Female Linter Operator: GWEN : [id number] Requested By: Order Number: [id number] Reading MD: Evan Pompa Measurements Intervals [place] Rate: 70 P: 60 CT: 424 QRS: 31 QRSD: 88 T: 60 QT: 402 QTc: 434 Interpretive Statements Sinus rhythm with 1st degree AV block Low voltage QRS Electronically Signed On 11-26-2023 20:14:55 PDT by Evan Pompa
[2023-11-26 11:41] LABS: Add Manual Diff / Slide Review NO; Basophils Absolute Auto 100 /uL (0-100); Basophils Percent Auto 0.8 % (0-2); Eosinophils Absolute Auto 400 /uL (0-450); Eosinophils Percent Auto 4.2 % (2-4); Hematocrit 38.6 % (36-46); Hemoglobin 12.6 g/dL (12.0-16.0); Lymphocytes Absolute Auto 2100 /uL (1100-4500); Lymphocytes Percent Auto 24.4 % (25-40); Mean Corpuscular HGB Conc 32.5 % (30-36); Mean Corpuscular Volume 89.4 fL (80-100); Monocytes Absolute Auto 800 /uL (0-900); Monocytes Percent Auto 9.6 % (3-14); Neutrophils Absolute Auto 5200 /uL (1500-7000); Platelet Count 260 X10^3/uL (150-400); Red Blood Cell Count 4.32 X10^6/uL (4.0-5.2); White Blood Cell Count 8.6 X10^3/uL (4.5-11.0)
[2023-11-26 11:57] LABS: Alanine Aminotransferase 12 IU/L (<35); Albumin 3.5 g/dL (3.5-5.0); Albumin Globulin Ratio 1.2 (1.0-2.8); Alkaline Phosphatase 62 U/L (38-126); Aspartate Aminotransferase 20 IU/L (14-36); BUN Creatinine Ratio 22.2 (6-22); Bilirubin Total 0.4 mg/dL (0.2-1.3); Blood Urea Nitrogen 28 mg/dL (7-17); Calcium 10.4 mg/dL (8.4-10.2); Carbon Dioxide 26 mmol/L (22-32); Chloride 105 mmol/L (98-107); Estimated Glomerular Filt Rate 42 mL/min (>60); Globulin 2.9 g/dL (1.7-4.1); Glucose 108 mg/dL (80-110); HEMOLYSIS < 15 (0-50); Potassium 4.1 mmol/L (3.4-5.1); Sodium 136 mmol/L (137-145); Total Protein 6.4 g/dL (6.3-8.2)
[2023-11-26 12:01] LABS: Ammonia (NH3) < 9 umol/L (9-30)
[2023-11-26 12:23] LABS: Ur Creatinine Normal (Normal); Ur Specific Gravity Normal (Normal); Urine pH Normal (Normal)
[2023-11-26 12:24] LABS: Appearance Urine UA CLEAR; Bilirubin Urine UA NEGATIVE (NEGATIVE); Color Urine UA YELLOW; Glucose Urine UA NEGATIVE (Negative); Ketones Urine UA NEGATIVE (NEGATIVE); Leukocyte Esterase Urine UA 3+ (NEGATIVE); Nitrite Urine UA NEGATIVE (Negative); Occult Blood Urine UA NEGATIVE (Negative); Protein Urine UA NEGATIVE (Negative); Specific Gravity Urine UA <=1.005 (1.000-1.035); Urine Amphetamines Negative (Negative); Urine Barbiturates Negative (Negative); Urine Benzodiazepines Negative (Negative); Urine Cocaine Negative (Negative); Urine MDMA Negative (Negative); Urine Methadone Negative (Negative); Urine Methamphetamines Negative (Negative); Urine Opiates Negative (Negative); Urine Oxycodone Negative (Negative); Urine Phencyclidine Negative (Negative); Urine THC Negative (Negative); Urine Tricyclic Antidepressant Negative (Negative); Urobilinogen Urine UA 0.2 E.U./dL (0.2)
[2023-11-26 12:38] LABS: Bacteria Urine Many (>30); RBC Urine None Seen (0-5/HPF); Squamous Epithelial Cell Urine 10-30 /HPF (0-5/HPF); Urine Volume 10mL (spun); WBC Urine 5-10/HPF (0-5/HPF)
[2023-11-26 12:48] LABS: Culture Indicated Urine Cult Not Indicated
--- NOTE | 2023-11-26 12:48 | ED.AMS ---
HPI - Altered Mental Status General Chief Complaint: Altered Mental Status Stated Complaint: Altered mental status Time Seen by Provider: 11/26/23 12:05 History of Present Illness HPI narrative: Patient is DNR with selective treatments. Daughters are at bedside. Do not want any CAT scan imaging. Patient has had visual hallucinations in the past couple of days and saw primary care and family was concerned for UTI but no workup was done. Last night went to bed around 1:00 a.m... Patient has been eating and drinking. However this morning patient was not interacting talking like she usually does. This is typical of UTI according to family. She does have strong odor of urine. No injury from any falls. Family would only like blood work fluids and antibiotics. Related Data Home Medications Medication Instructions Recorded Confirmed cranberry extract 9 cap PO DAILY 06/22/23 11/28/23 amlodipine 10 mg tablet 10 mg PO DAILY 10/17/23 11/28/23 citalopram 10 mg tablet 10 mg PO BEDTIME 10/17/23 11/28/23 furosemide 20 mg tablet 20 mg PO DAILY 10/17/23 11/28/23 losartan 25 mg tablet 25 mg PO QPM 10/17/23 11/28/23 memantine 5 mg tablet 5 mg PO BEDTIME 10/17/23 11/28/23 insulin glargine 100 unit/mL (3 8 unit SUBCUT QAM 11/12/23 11/28/23 mL) subcutaneous pen (Lantus Solostar U-100 Insulin) tirzepatide 5 mg/0.5 mL 5 mg SUBCUT QWEEK 11/28/23 11/28/23 subcutaneous pen injector ([place]ica) guaifenesin 600 mg tablet, 600 mg PO BID 12/02/23 extended release 12 hr (Mucinex) lovastatin 20 mg tablet 5 mg PO BEDTIME 12/02/23 Previous Rx's Medication Instructions Recorded insulin syringe,safety needle 0.5 #500 ea 04/13/18 mL 29 gauge x 1/2 (Assure ID Insulin Safety) miscellaneous medical supply #1 ea 03/02/19 disabled parking permit #1 ea 02/09/20 blood sugar diagnostic (Glucocard See Rx Instructions .Route 12/23/20 Expression strips) .COMPLEX #100 ea pen needle, diabetic 31 gauge x See Rx Instructions .Route 11/21/2108/11 (TRUEplus Pen Needle) .COMPLEX #100 ea blood-glucose meter,continuous #1 ea 02/13/22 (Dexcom G6 Packaging Manager) blood-glucose sensor (Dexcom G6 #3 ea 02/13/22 Sensor device) blood-glucose transmitter (Dexcom #1 ea 02/13/22 G6 Transmitter device) quetiapine 25 mg tablet (Seroquel) 25 mg PO BEDTIME #90 tabs 10/29/23 ciprofloxacin HCl 500 mg tablet 500 mg PO BID 5 days #10 tabs 12/01/23 estradiol 1 mg tablet 1 mg PO QAM #90 tabs 12/02/23 levothyroxine 50 mcg tablet 50 mcg PO DAILY #90 tabs 12/02/23 loperamide 2 mg capsule (Imodium 2 mg PO QID PRN loose stool #60 12/02/23 A-D) caps metformin 1,000 mg tablet 1,000 mg PO BID #180 tabs 12/02/23 Allergies Allergy/AdvReac Type Severity Reaction Status Date / Time penicillin G [PENICILLIN G] Allergy Intermediate Hives Verified 11/25/23 11:09 Review of Systems Review of Systems Narrative: GENERAL: negative chills, fatigue, malaise, fever, sweats. HEENT: negative sinus pain, ear pain, sore throat RESPIRATORY: negative dyspnea, cough CARDIOVASCULAR: negative chest pain, palpitations GASTROINTESTINAL: negative nausea, vomiting, abdominal pain : negative dysuria, frequency, hematuria, positive incontinence MUSCULOSKELETAL: negative muscle or bony pain SKIN: negative rash, skin lesions NEUROLOGIC: negative weakness, numbness Psychiatry: Positive hallucinations ROS Unobtainable: All systems reviewed & are unremarkable except as noted in HPI and below Patient History Medical History Incomplete emptying of bladder Alzheimer disease Atrophic vaginitis Cognitive dysfunction Urge incontinence Secondhand smoke exposure Recurrent urinary tract infection History of asthma Lower extremity edema Hyperparathyroidism Swelling of left hand Obesity (BMI 30-39.9) Infection of fingernail of left hand Laceration of hand Shortness of breath Hypoxemia UTI (urinary tract infection) CVA, old, alterations of sensations Nocturnal hypoxemia Obstructive sleep apnea of adult (~08/2018) Excessive daytime sleepiness CVA (cerebral vascular accident) Fractures (~1962) Foot pain (~1962) Eczema (~2013) Hepatitis C (~1948) Cataract (~2014) Diabetes mellitus (~1996) Contusion of rib on right side Contusion of right shoulder Cellulitis Surgical History History of knee replacement Anesthesia Personal history of spine surgery (~2005) Personal history of spine surgery (~2003) Family History Brother No problems noted. Father No problems noted. Mother No problems noted. Daughter Diabetes mellitus Hypertension Thyroid condition Son Diabetes mellitus Social History household members: family Smoking Status: Never smoker alcohol intake: never caffeine: Yes Smoking Status: Never smoker alcohol intake frequency: 0-2 drinks per day Substance Use Type: does not use Exam Narrative Exam Narrative: GENERAL: in no distress, not toxic not dyspneic HEAD: Normocephalic. EYES: Pupils equal round ENT: Mucous membranes moist. NECK: Trachea midline. CARDIOVASCULAR: Regular rate and rhythm RESPIRATORY: Clear to auscultation. Breath sounds equal bilaterally. No wheezes, rales, or rhonchi. GASTROINTESTINAL: Abdomen soft, non-tender EXTREMITIES: No gross deformities. BACK: No flank tenderness. NEURO: Patient only awakes to voice. Does not say did or family at bedside name. Soft voice but able to say her name. Does spontaneously move all 4 extremities. SKIN: Warm and dry PSYCH: Not anxious, is cooperative Initial Vital Signs Initial Vital Signs: Vital Signs Pulse Rate 73 11/26/23 11:21 Pulse Oximetry 94 11/26/23 11:21 Course Orders Ordered: Discontinued Medications Acetaminophen (Acetaminophen 325 Mg Tablet) 650 mg PO Q6H PRN PRN Reason: Fever/Mild Pain (1-3) Amlodipine Besylate (Amlodipine 5 Mg Tablet) 10 mg PO DAILY [facility] Last Admin: 12/01/23 08:31 Dose: 10 mg Documented By: Admin: 11/30/23 08:31 Dose: 10 mg Documented By: Admin: 11/29/23 09:29 Dose: 10 mg Documented By: Admin: 11/28/23 11:26 Dose: 10 mg Documented By: DALLAS Atorvastatin Calcium (Atorvastatin 20 Mg Tablet) 5 mg PO DAILY [facility] Last Admin: 12/01/23 08:31 Dose: 5 mg Documented By: Admin: 11/30/23 08:31 Dose: 5 mg Documented By: Admin: 11/29/23 09:29 Dose: 5 mg Documented By: DALLAS Ciprofloxacin (Ciprofloxacin 250 Mg Tablet) 500 mg PO 0700,2100 [facility] Last Admin: 12/01/23 06:28 Dose: 500 mg Documented By: Admin: 11/30/23 21:01 Dose: 500 mg Documented By: JEF Citalopram Hydrobromide (Citalopram 10 Mg Tablet) 10 mg PO BEDTIME [facility] Last Admin: 11/30/23 20:47 Dose: 10 mg Documented By: Admin: 11/29/23 21:01 Dose: 10 mg Documented By: Admin: 11/28/23 21:04 Dose: 10 mg Documented By: JEF Enoxaparin Sodium (Enoxaparin 40 Mg/0.4 Ml Syringe) 40 mg SUBCUT DAILY [facility] Last Admin: 12/01/23 08:32 Dose: 40 mg Documented By: Admin: 11/30/23 08:31 Dose: 40 mg Documented By: Admin: 11/29/23 09:29 Dose: 40 mg Documented By: Admin: 11/28/23 09:58 Dose: 40 mg Documented By: Admin: 11/27/23 09:03 Dose: 40 mg Documented By: PILAR Estradiol (Estradiol 1 Mg Tablet) 1 mg PO DAILY [facility] Last Admin: 12/01/23 08:31 Dose: 1 mg Documented By: Admin: 11/30/23 08:31 Dose: 1 mg Documented By: Admin: 11/29/23 09:29 Dose: 1 mg Documented By: Admin: 11/28/23 11:26 Dose: 1 mg Documented By: DALLAS Furosemide (Furosemide 20 Mg Tablet) 20 mg PO DAILY [facility] Last Admin: 12/01/23 08:32 Dose: 20 mg Documented By: Admin: 11/30/23 08:31 Dose: 20 mg Documented By: Admin: 11/29/23 09:29 Dose: 20 mg Documented By: DALLAS Guaifenesin (Guaifenesin Er 600 Mg Tab) 600 mg PO DAILY [facility] Last Admin: 12/01/23 08:31 Dose: 600 mg Documented By: Admin: 11/30/23 08:31 Dose: 600 mg Documented By: Admin: 11/29/23 09:30 Dose: 600 mg Documented By: DALLAS Ceftriaxone Sodium 2,000 mg/ (Sodium Chloride) 100 mls @ 200 mls/hr IV NOW ONE Stop: 11/26/23 12:53 Last Infusion: 11/26/23 15:15 Dose: Infused Documented By: Admin: 11/26/23 13:28 Dose: 200 mls/hr Documented By: SHEREE Sodium Chloride (Normal Saline 0.9%) 1,000 mls @ 1,000 mls/hr IV BOLUS ONE Stop: 11/26/23 13:59 Last Infusion: 11/26/23 15:16 Dose: Infused Documented By: Admin: 11/26/23 13:27 Dose: 1,000 mls/hr Documented By: SHEREE Sodium Chloride (Normal Saline 0.9%) 1,000 mls @ 100 mls/hr IV CONT JUSTIN Last Admin: 11/27/23 11:21 Dose: 100 mls/hr Documented By: Infusion: 11/27/23 01:58 Dose: Infused Documented By: Admin: 11/26/23 15:58 Dose: 100 mls/hr Documented By: PILAR Ceftriaxone Sodium 1,000 mg/ (Sodium Chloride) 100 mls @ 200 mls/hr IV Q24H [facility] Last Admin: 11/29/23 13:37 Dose: 200 mls/hr Documented By: Infusion: 11/28/23 14:35 Dose: Infused Documented By: Admin: 11/28/23 13:59 Dose: 200 mls/hr Documented By: Infusion: 11/27/23 12:33 Dose: Infused Documented By: Admin: 11/27/23 12:03 Dose: 200 mls/hr Documented By: PILAR Magnesium Sulfate (Magnesium Sulfate) 2 gm in 50 mls @ 25 mls/hr IV NOW ONE Stop: 11/27/23 15:27 Last Admin: 11/27/23 13:39 Dose: 25 mls/hr Documented By: PILAR Co-signed By: REBEL Dextrose (D10w) 100 mls @ 1,200 mls/hr IV PRN PRN PRN Reason: Hypoglycemia Meropenem 1 gm/ Sodium (Chloride) 100 mls @ 200 mls/hr IV Q12H [facility] Last Admin: 11/30/23 04:34 Dose: 200 mls/hr Documented By: Infusion: 11/29/23 21:01 Dose: Infused Documented By: Admin: 11/29/23 16:31 Dose: 200 mls/hr Documented By: DALLAS Insulin Glargine (Insulin Glargine 100 Unit/Ml 3ml Pen) 8 unit SUBCUT DAILY [facility] Last Admin: 12/01/23 08:10 Dose: 8 unit Documented By: PILAR Co-signed By: PITO Admin: 11/30/23 08:31 Dose: 8 unit Documented By: DALLAS Co-signed By: KATY Admin: 11/29/23 09:30 Dose: 8 unit Documented By: DALLAS Co-signed By: LISA Admin: 11/28/23 11:25 Dose: 8 unit Documented By: DALLAS Co-signed By: KATY Insulin Human Lispro (Insulin Lispro 100 Unit/Ml 3ml Vial) 0 unit SUBCUT ACHS [facility]; Protocol Last Admin: 12/01/23 08:10 Dose: 1 unit Documented By: PILAR Co-signed By: PITO Admin: 11/30/23 21:11 Dose: Not Given Documented By: Admin: 11/30/23 16:57 Dose: 1 unit Documented By: DALLAS Co-signed By: KATY Admin: 11/30/23 11:41 Dose: 1 unit Documented By: DALLAS Co-signed By: KATY Admin: 11/30/23 08:30 Dose: Not Given Documented By: Admin: 11/29/23 20:59 Dose: Not Given Documented By: Admin: 11/29/23 16:45 Dose: 1 unit Documented By: DALLAS Co-signed By: LISA Admin: 11/29/23 12:00 Dose: 1 unit Documented By: DALLAS Co-signed By: LISA Admin: 11/29/23 07:41 Dose: Not Given Documented By: DALLAS Levothyroxine Sodium (Levothyroxine 50 Mcg Tablet) 50 mcg PO DAILY@0600 [facility] Last Admin: 12/01/23 06:10 Dose: 50 mcg Documented By: Admin: 11/30/23 05:39 Dose: 50 mcg Documented By: Admin: 11/29/23 05:52 Dose: 50 mcg Documented By: JEF Loperamide HCl (Loperamide 2 Mg Capsule) 2 mg PO QID PRN PRN Reason: loose stool Losartan Potassium (Losartan 25 Mg Tablet) 25 mg PO QPM [facility] Last Admin: 11/30/23 16:57 Dose: 25 mg Documented By: Admin: 11/29/23 16:51 Dose: 25 mg Documented By: Admin: 11/28/23 16:56 Dose: 25 mg Documented By: DALLAS Magnesium Chloride (Magnesium Chloride 64 Mg Tablet) 128 mg PO NOW ONE Stop: 11/30/23 10:54 Last Admin: 11/30/23 11:28 Dose: 128 mg Documented By: DALLAS Magnesium Chloride (Magnesium Chloride 64 Mg Tablet) 128 mg PO NOW ONE Stop: 12/01/23 10:46 Last Admin: 12/01/23 10:44 Dose: 128 mg Documented By: PILAR Memantine (Memantine Hcl 5 Mg Tablet) 5 mg PO BEDTIME [facility] Last Admin: 11/30/23 20:47 Dose: 5 mg Documented By: Admin: 11/29/23 21:01 Dose: 5 mg Documented By: Admin: 11/28/23 21:04 Dose: 5 mg Documented By: JEF Metformin HCl (Metformin Hcl 500 Mg Tablet) 1,000 mg PO BID [facility] Last Admin: 11/30/23 08:31 Dose: 1,000 mg Documented By: Admin: 11/29/23 21:01 Dose: 1,000 mg Documented By: Admin: 11/29/23 09:29 Dose: 1,000 mg Documented By: Admin: 11/28/23 21:05 Dose: 1,000 mg Documented By: Admin: 11/28/23 11:26 Dose: 1,000 mg Documented By: DALLAS Metformin HCl (Metformin Hcl 500 Mg Tablet) 1,000 mg PO BIDWM [facility] Last Admin: 12/01/23 08:31 Dose: 1,000 mg Documented By: Admin: 11/30/23 16:57 Dose: 1,000 mg Documented By: DALLAS Naloxone HCl (Naloxone 0.4 Mg/Ml Vial) 0.2 mg IV Q2MIN PRN PRN Reason: Opiate Reversal Non-Formulary Medication (Blood Sugar Diagnostic [Glucocard Expression]) 0 strip .ROUTE .COMPLEX [facility] Non-Formulary Medication (Cranberry Extract) 9 cap PO DAILY [facility] Last Admin: 11/28/23 11:47 Dose: Not Given Documented By: DALLAS Ondansetron HCl (Ondansetron 4 Mg/2 Ml Inj) 4 mg IV Q8HR PRN PRN Reason: Nausea And Vomiting Quetiapine Fumarate (Quetiapine 25 Mg Tablet) 25 mg PO BEDTIME [facility] Last Admin: 11/28/23 21:05 Dose: 25 mg Documented By: MM Vital Signs Vital signs: Vital Signs - 8 hr 11/26/23 11:21 11/26/23 11:22 11/26/23 11:30 Temperature 98.6 F Pulse Rate 73 73 75 Respiratory Rate 16 Blood Pressure 131/62 Pulse Oximetry 94 98 94 Oxygen Delivery Method Room Air 11/26/23 11:30 11/26/23 12:00 11/26/23 12:00 Temperature Pulse Rate 67 Respiratory Rate Blood Pressure 140/66 116/55 L Pulse Oximetry 94 Oxygen Delivery Method 11/26/23 12:30 11/26/23 12:30 11/26/23 13:00 Temperature Pulse Rate 66 67 Respiratory Rate Blood Pressure 102/54 L Pulse Oximetry 92 94 Oxygen Delivery Method Room Air Room Air 11/26/23 13:00 11/26/23 13:30 11/26/23 13:30 Temperature Pulse Rate 65 Respiratory Rate Blood Pressure 121/61 103/57 L Pulse Oximetry 94 Oxygen Delivery Method Room Air MDM - Altered Mental Status Lab Data 12/01/23 05:40 12/01/23 05:40 Labs: Lab Results 11/26/23 11/26/23 11/26/23 Range/Units 11:30 12:10 12:10 WBC 8.6 (4.5-11.0) X10^3/uL RBC 4.32 (4.0-5.2) X10^6/uL Hgb 12.6 (12.0-16.0) g/dL Hct 38.6 (36-46) % MCV 89.4 (80-100) fL MCH 29.0 (26-34) PG MCHC 32.5 (30-36) % RDW 15.0 H (11.6-14.8) % Plt Count 260 (150-400) X10^3/uL Neut % (Auto) 61.0 (50-75) % Lymph % (Auto) 24.4 L (25-40) % Lane % (Auto) 9.6 (3-14) % Eos % (Auto) 4.2 H (2-4) % Baso % (Auto) 0.8 (0-2) % Neut # (Auto) 5200 (3115-2382) /uL Lymph # (Auto) 2100 (3871-2394) /uL Lane # (Auto) 800 (0-900) /uL Eos # (Auto) 400 (0-450) /uL Baso # (Auto) 100 (0-100) /uL Sodium 136 L (137-145) mmol/L Potassium 4.1 (3.4-5.1) mmol/L Chloride 105 (98-107) mmol/L Carbon Dioxide 26 (22-32) mmol/L BUN 28 H (7-17) mg/dL Creatinine 1.26 H (0.52-1.04) mg/dL Estimated GFR 42 L (>60) mL/min BUN/Creatinine Ratio 22.2 H (6-22) Glucose 108 (80-110) mg/dL Calcium 10.4 H (8.4-10.2) mg/dL Total Bilirubin 0.4 (0.2-1.3) mg/dL AST 20 (14-36) IU/L ALT 12 (<35) IU/L Alkaline Phosphatase 62 (38-126) U/L Ammonia < 9 L (9-30) umol/L Total Protein 6.4 (6.3-8.2) g/dL Albumin 3.5 (3.5-5.0) g/dL Globulin 2.9 (1.7-4.1) g/dL Albumin/Globulin Ratio 1.2 (1.0-2.8) Urine Color Yellow Urine Appearance Clear Urine pH 6.0 Normal (4.5-8.0) Ur Specific [place] <=1.005 (1.000-1.035) Urine Protein Negative (Negative) Urine Glucose (UA) Negative (Negative) g/dL Urine Ketones Negative (NEGATIVE) Urine Occult Blood Negative (Negative) Urine Nitrate Negative (Negative) Urine Bilirubin Negative (NEGATIVE) Urine Urobilinogen 0.2 (0.2) E.U./dL Ur Leukocyte Esterase 3+ H (NEGATIVE) Urine RBC None seen (0-5/HPF) Urine WBC 5-10/hpf H (0-5/HPF) Ur Squamous Epith Cells 10-30 /hpf H (0-5/HPF) Urine Bacteria Many (>30) H (None) Ur Culture Indicated? Cult not indicated Vol Urine Centrifuged 10ml (spun) U Opiates 300ng/mL cut Negative (Negative) Ur Oxycodone Screen Negative (Negative) Urine Methadone Screen Negative (Negative) Ur Barbiturates Screen Negative (Negative) U Tricyclic Antidepress Negative (Negative) Ur Phencyclidine Scrn Negative (Negative) Ur Amphetamines Screen Negative (Negative) U Methamphetamines Scrn Negative (Negative) Ur MDMA Scrn (Ecstasy) Negative (Negative) U Benzodiazepines Scrn Negative (Negative) Urine Cocaine Screen Negative (Negative) U Marijuana (THC) Screen Negative (Negative) Urine Specific [place] Normal (Normal) Ur Creatinine Normal (Normal) Point of Care Testing Glucose POC 170 Imaging Data Chest x-ray: Radiologist's Impression: [address] [address] XRay Report Signed Patient: Isabella Lucero MR#: [id number] : 1935 Acct:[id number] Age/Sex: 88 / F Date of Service: 11/26/23 Loc: ED Accession Number: [id number] Procedure: XR chest 1V Ordering Provider: Donaldo Major MD PROCEDURE: XR CHEST 1V INDICATIONS: altered mental status TECHNIQUE: One view of the chest was acquired. COMPARISON: [facility], [place], XR CHEST 1V, 10/17/2023, 14:28. FINDINGS: Surgical changes and devices: None. Lungs and pleura: Lungs are clear. No pleural effusions or pneumothorax. Mediastinum: Mediastinal contours appear normal. Heart size is top-normal. Bones and chest wall: No suspicious bony lesions. Overlying soft tissues appear unremarkable. IMPRESSION: No evidence acute pulmonary process. Dictated by: Olu Garcia M.D. on 11/26/2023 at 12:44 Approved by: Olu Garcia M.D. on 11/26/2023 at 12:44 [facility] Narrative Medical decision making narrative: Patient is DNR with selective treatments. Daughters are at bedside. Do not want any CAT scan imaging. Patient has had visual hallucinations in the past couple of days and saw primary care and family was concerned for UTI but no workup was done. Last night went to bed around 1:00 a.m... Patient has been eating and drinking. However this morning patient was not interacting talking like she usually does. This is typical of UTI according to family. She does have strong odor of urine. No injury from any falls. Family would only like blood work fluids and antibiotics. After history and exam CBC CMP urinalysis EKG chest x-ray [facility] Medical records reviewed: No recent visit for this complaint Differential considered: Includes but not limited to Lab Test results independently reviewed as above. Pertinent findings: Urinalysis positive leuk esterase/WBC, WBC 8.6 hemoglobin 12.6 sodium 136 potassium 4.1 BUN 28 creatinine 1.26 GFR 42 glucose 108 ammonia less than 9 drug screen negative Independently reviewed EKG sinus rhythm rate [address] elevation or depression Imaging studies independently reviewed: Chest x-ray no acute finding Consultations: 1:43 p.m.. Spoke with hospitalist Dr. Pompa, who will admit patient Treatments: Rocephin normal saline Re-evaluations: 1:00 p.m.. Updated patient and family results. They do agree for admission. Discussion: Appropriate for admission, patient not at baseline. IV antibiotics will be beneficial as well as IV fluids. Patient and family agree for admission Diagnosis: Acute UTI altered mental status Discharge Plan Departure Patient Disposition: Admitted As Inpatient Clinical Impression: UTI (urinary tract infection) Qualifiers: Urinary tract infection type: site unspecified Hematuria presence: without hematuria Qualified Code(s): N39.0 - Urinary tract infection, site not specified Altered mental status Qualifiers: Altered mental status type: unspecified Qualified Code(s): R41.82 - Altered mental status, unspecified Admit Date/Time: 11/26/23 13:42 Admit Provider: Evan Pompa
[2023-11-26] MEDS: SODIUM CHLORIDE 0.9% 1,000 ML 1000 ML IV (13:27)
[2023-11-26] MEDS: cefTRIAXone 2,000 MG in SODIUM CHLORIDE 0.9% 100 ML 200 MG IV (13:28)
[2023-11-26] MEDS: SODIUM CHLORIDE 0.9% 1,000 ML 100 ML IV (15:58)
--- NOTE | 2023-11-26 16:12 | PC.NURSE ---
Day shift: In room from ED at approx 1530. Alert to self. Bed saturated with urine and Pt cleaned w/ new brief placed. PurWik placed by PCT Felix. Pt asleep with no complaints. Awakens to touch. VS ok. IV fluids per MAY.
--- NOTE | 2023-11-26 19:13 | P.HP_ITS ---
History of Present Illness History of Present Illness Date Patient Seen: 11/26/23 Time Patient Seen: 18:20 Chief complaint: Altered mental status Narrative: This is an 88 year old feamle with PMH of Alzheimer dementia, Obesity, DONOVAN, hyperparathyroidism, prior CVA, DM, HTN who presented with profound lethargy today in the setting of recent hallucinations a couple of days ago. Patient has incomplete empytying of her bladder, frequent UTIs. Was admitted previously due to sepsis due to UTI with similar presentation. No recent abdominal pain, nausea, vomiting per ER report but daughter did report foul smelling urine. Patient is more alert upon my evaluation, denied recent symptoms including dysuria or urinary frequency. In the ER vitals were okay, WBC was 8.6, Cr mildly elevated at 1.26, calcium 10.4 (around her baseline),. UA had many bacteria, minimal WBC and was contaminated with squamous cells. She was given ceftriaxone, urine culture did not reflex but was separately ordered, and admitted to medicine for further management of presumed sepsis due to acute cystitis. [facility] Medical History Incomplete emptying of bladder Alzheimer disease Atrophic vaginitis Cognitive dysfunction Urge incontinence Secondhand smoke exposure Recurrent urinary tract infection History of asthma Lower extremity edema Hyperparathyroidism Swelling of left hand Obesity (BMI 30-39.9) Infection of fingernail of left hand Laceration of hand Shortness of breath Hypoxemia UTI (urinary tract infection) CVA, old, alterations of sensations Nocturnal hypoxemia Obstructive sleep apnea of adult (~08/2018) Excessive daytime sleepiness CVA (cerebral vascular accident) Fractures (~1962) Foot pain (~1962) Eczema (~2013) Hepatitis C (~1948) Cataract (~2014) Diabetes mellitus (~1996) Contusion of rib on right side Contusion of right shoulder Cellulitis Surgical History History of knee replacement Anesthesia Personal history of spine surgery (~2005) Personal history of spine surgery (~2003) Family History Brother No problems noted. Father No problems noted. Mother No problems noted. Daughter Diabetes mellitus Hypertension Thyroid condition Son Diabetes mellitus Social History household members: family Smoking Status: Never smoker alcohol intake: never caffeine: Yes Meds Home Medications and Allergies Home Medications Medication Instructions Recorded Confirmed Type insulin syringe,safetyneedle 0.5 #500 ea 04/13/18 11/26/23 Rx mL 29 gauge x 1/2 (Assure ID Insulin Safety) miscellaneous medical supply #1 ea 03/02/19 11/26/23 Rx disabled [address] permit #1 ea 02/09/20 11/26/23 Rx blood sugar diagnostic (Glucocard See Rx Instructions .Route 12/23/20 11/25/23 Rx Expression strips) .COMPLEX #100 ea pen needle, diabetic 31 gauge x See Rx Instructions .Route 11/21/21 11/25/23 Rx 5/16 (TRUEplus Pen Needle) .COMPLEX #100 ea blood-glucose meter,continuous #1 ea 02/13/22 11/26/23 Rx (Dexcom G6 Food Service Helper) blood-glucose sensor (Dexcom G6 #3 ea 02/13/22 11/26/23 Rx Sensor device) blood-glucose transmitter (Dexcom #1 ea 02/13/22 11/26/23 Rx G6 Transmitter device) cranberry extract 9 cap PO DAILY 06/22/23 11/25/23 History amlodipine 10 mg tablet 10 mg PO DAILY 10/17/23 11/25/23 History citalopram 10 mg tablet 10 mg PO BEDTIME 10/17/23 11/25/23 History estradiol 1 mg tablet 1 mg PO DAILY 10/17/23 11/25/23 History furosemide 20 mg tablet 20 mg PO DAILY 10/17/23 11/25/23 History levothyroxine 50 mcg tablet 50 mcg PO DAILY@0600 10/17/23 11/25/23 History losartan 25 mg tablet 25 mg PO QPM 10/17/23 11/25/23 History lovastatin 20 mg tablet 5 mg PO DAILY 10/17/23 11/25/23 History memantine 5 mg tablet 5 mg PO BEDTIME 10/17/23 11/25/23 History metformin 1,000 mg tablet 1,000 mg PO BID 10/17/23 11/25/23 History guaifenesin 600 mg tablet, 600 mg PO DAILY 10/18/23 11/25/23 History extended release 12 hr (Mucinex) loperamide 2 mg capsule (Imodium 2 mg PO QID PRN loose stool #60 08/02/24 08/29/24 Rx A-D) caps quetiapine 25 mg tablet (Seroquel) 25 mg PO BEDTIME #90 tabs 10/29/23 11/25/23 Rx insulin glargine 100 unit/mL (3 6 unit SUBCUT QPM 11/12/23 11/25/23 History mL) subcutaneous pen (Lantus Solostar U-100 Insulin) cephalexin 500 mg capsule 500 mg PO QID #20 caps 11/26/23 Rx Allergies Allergy/AdvReac Type Severity Reaction Status Date / Time penicillin G [PENICILLIN G] Allergy Intermediate Hives Verified 11/25/23 11:09 Review of Systems Review of Systems Narrative: All other systems reviewed with the patient and are negative unless otherwise stated. Exam Vital Signs (past 8 hours): - 11/26/23 11:21 11/26/23 11:22 11/26/23 11:30 Temperature 98.6 F Pulse Rate 73 73 75 Respiratory Rate 16 Blood Pressure 131/62 Pulse Oximetry 94 98 94 Oxygen Delivery Method Room Air 11/26/23 11:30 11/26/23 12:00 11/26/23 12:00 Temperature Pulse Rate 67 Respiratory Rate Blood Pressure 140/66 116/55 L Pulse Oximetry 94 Oxygen Delivery Method 11/26/23 12:30 11/26/23 12:30 11/26/23 13:00 Temperature Pulse Rate 66 67 Respiratory Rate Blood Pressure 102/54 L Pulse Oximetry 92 94 Oxygen Delivery Method Room Air Room Air 11/26/23 13:00 11/26/23 13:30 11/26/23 13:30 Temperature Pulse Rate 65 Respiratory Rate Blood Pressure 121/61 103/57 L Pulse Oximetry 94 Oxygen Delivery Method Room Air 11/26/23 14:00 11/26/23 14:01 11/26/23 14:01 Temperature Pulse Rate 69 73 Respiratory Rate Blood Pressure 124/58 L Pulse Oximetry 95 85 L Oxygen Delivery Method Room Air 11/26/23 14:30 11/26/23 14:30 11/26/23 15:00 Temperature Pulse Rate 63 Respiratory Rate Blood Pressure 124/60 123/61 Pulse Oximetry 94 Oxygen Delivery Method 11/26/23 15:00 11/26/23 16:03 11/26/23 16:16 Temperature 98.3 F Pulse Rate 64 58 L Respiratory Rate 17 Blood Pressure 135/78 Pulse Oximetry 95 98 98 Oxygen Delivery Method Room Air Room Air Oxygen Delivery Method Room Air Narrative Exam Narrative: General:? Obese female, no acute distress, asleep but arousable HEENT:? Normocephalic, atraumatic, extraocular muscles intact, oral pharynx is clear and mucous membranes are moist. Neck: supple and symmetric, trachea is midline, no cervical adenopathy. Chest:? Normal AP diameter and contour without kyphoscoliosis, no tachypnea, equal chest rise bilaterally. Lungs:? CTA b/l no wheezing rhonchi or rales. Cardio:?RRR no m/r/g. Abdomen: S NT ND. Musculoskeletal:? Muscle strength and tone are equal within normal limits, no deformity. Extremities: no edema Skin:? Pale,? Warm to touch,dry and intact without rashes, ulcerations or petechiae.? Neuro:?alert and oriented to name, hospital, month but not year. No focal deficits. Objective ECG Impression: NSR with 1st degree AV block, no acute ischemia as interpreted by me. Labs 11/26/23 11:30 11/26/23 11:30 Labs: Laboratory Results - last 24 hr 11/26/23 11/26/23 11/26/23 11:30 12:10 12:10 WBC 8.6 RBC 4.32 Hgb 12.6 Hct 38.6 MCV 89.4 MCH 29.0 MCHC 32.5 RDW 15.0 H Plt Count 260 Neut % (Auto) 61.0 Lymph % (Auto) 24.4 L [place] % (Auto) 9.6 Eos % (Auto) 4.2 H Baso % (Auto) 0.8 Neut # (Auto) 5200 Lymph # (Auto) 2100 [place] # (Auto) 800 Eos # (Auto) 400 Baso # (Auto) 100 Sodium 136 L Potassium 4.1 Chloride 105 Carbon Dioxide 26 BUN 28 H Creatinine 1.26 H Estimated GFR 42 L BUN/Creatinine Ratio 22.2 H Glucose 108 Calcium 10.4 H Total Bilirubin 0.4 AST 20 ALT 12 Alkaline Phosphatase 62 Ammonia < 9 L Total Protein 6.4 Albumin 3.5 Globulin 2.9 Albumin/Globulin Ratio 1.2 Urine Color Yellow Urine Appearance Clear Urine pH 6.0 Normal Ur Specific [place] <=1.005 Urine Protein Negative Urine Glucose (UA) Negative Urine Ketones Negative Urine Occult Blood Negative Urine Nitrate Negative Urine Bilirubin Negative Urine Urobilinogen 0.2 Ur Leukocyte Esterase 3+ H Urine RBC None seen Urine WBC 5-10/hpf H Ur Squamous Epith Cells 10-30 /hpf H Urine Bacteria Many (>30) H Ur Culture Indicated? Cult not indicated Vol Urine Centrifuged 10ml (spun) U Opiates 300ng/mL cut Negative Ur Oxycodone Screen Negative Urine Methadone Screen Negative Ur Barbiturates Screen Negative U Tricyclic Antidepress Negative Ur Phencyclidine Scrn Negative Ur Amphetamines Screen Negative U Methamphetamines Scrn Negative Ur MDMA Scrn (Ecstasy) Negative U Benzodiazepines Scrn Negative Urine Cocaine Screen Negative U Marijuana (THC) Screen Negative Urine Specific [place] Normal Ur Creatinine Normal Assessment & Plan Assessment & Plan narrative: 1. Sepsis secondary to acute cystitis with acute metabolic encephalopathy, elevated creatinine - patient was GCS 13 on ER evaluation, but is more responsive now after initial therapies - continue IV fluids, okay for diet. - continue ceftriaxone 1g q24 hours for presumed acute cystitis - follow up urine and blood cultures, initial UA not reflexed but ordered urine culture given presentation. - ammonia <9. 2. HTN - hold home antihypertensive in setting of above sepsis for now 3. Alzheimer's dementia - Consider PT / OT once more alert, continue home memantine when able. - daughters are able to care for patient at home during previous admission, normally patient is able to do most of her ADLs but requires some assistance. 4. Hyperparathyroidism - Calcium stable at 10.4, continue to follow with BMP. 5. DONOVAN - patient non-compliant with CPAP, will hold on Cpap therapy. Code: DNR/ DNI, okay with fluids, antibiotics and labs, surrogate is patient's daughter Malu (PODevorah, other daughter is Talia) DVT: Lovenox daily I have utilized all available immediate resources to obtain, update, or review the patient's current medications. Dispo: patient admitted under inpatient status. Unclear if will be able to discharge home or possible SNF, consider PT/OT depending on progress vs discharge home if encephalopathy resolves Additional history obtained via discussions with the ER provider. These discussions contributed to the creation of the above assessment and plan. I have reviewed patient's presenting documentation, labs, and imaging personally. Time-Based Coding :: [TOTAL MINUTES] spent with patient and on the chart (including review of chart, obtaining history, exam, reviewing outside data, placing orders, documenting exam and treatment plan, and counseling patient) on [DATE]. Quality VTE Deep Vein Thrombosis/Pulmonary Embolism Present on Admission: No
[2023-11-27] VITALS (10 sets, daily range): BP systolic 123–149; BP diastolic 65–85; PULSE 63–73; RESP 16–18; TEMP 36.4–37.2; O2SAT 95–100
--- NOTE | 2023-11-27 07:35 | PM.PN.1 ---
Subjective Subjective Interval history: She is smiling despite being disoriented and unable to fully engage. Her daughters at bedside are answering questions for her and are very supportive. She lives with both of them. They mentioned that she was here previously in September for a similar infection. Exam Vital Signs (past 8 hours): - 11/27/23 00:00 11/27/23 04:00 11/27/23 04:00 Temperature 97.5 F L Pulse Rate 68 Respiratory Rate 18 Blood Pressure 123/74 Pulse Oximetry 100 100 100 Oxygen Delivery Method Nasal Cannula Nasal Cannula Oxygen Flow Rate 4 4 Oxygen Delivery Method Nasal Cannula Oxygen Flow Rate 4 Narrative Exam Narrative: She is alert and oriented to her name. No apparent distress. Heart is regular rate and rhythm without murmur. Lungs are clear to auscultation bilaterally. Abdomen is obese, no organomegaly, nontender, soft, bowel sounds active. Extremities have no ankle edema. Objective Labs 11/27/23 10:35 11/27/23 10:35 Labs: Laboratory Results - last 24 hr 11/26/23 11/26/23 11/26/23 11:30 12:10 12:10 WBC 8.6 RBC 4.32 Hgb 12.6 Hct 38.6 MCV 89.4 MCH 29.0 MCHC 32.5 RDW 15.0 H Plt Count 260 Neut % (Auto) 61.0 Lymph % (Auto) 24.4 L [place] % (Auto) 9.6 Eos % (Auto) 4.2 H Baso % (Auto) 0.8 Neut # (Auto) 5200 Lymph # (Auto) 2100 [place] # (Auto) 800 Eos # (Auto) 400 Baso # (Auto) 100 Sodium 136 L Potassium 4.1 Chloride 105 Carbon Dioxide 26 BUN 28 H Creatinine 1.26 H Estimated GFR 42 L BUN/Creatinine Ratio 22.2 H Glucose 108 Calcium 10.4 H Total Bilirubin 0.4 AST 20 ALT 12 Alkaline Phosphatase 62 Ammonia < 9 L Total Protein 6.4 Albumin 3.5 Globulin 2.9 Albumin/Globulin Ratio 1.2 Urine Color Yellow Urine Appearance Clear Urine pH 6.0 Normal Ur Specific [place] <=1.005 Urine Protein Negative Urine Glucose (UA) Negative Urine Ketones Negative Urine Occult Blood Negative Urine Nitrate Negative Urine Bilirubin Negative Urine Urobilinogen 0.2 Ur Leukocyte Esterase 3+ H Urine RBC None seen Urine WBC 5-10/hpf H Ur Squamous Epith Cells 10-30 /hpf H Urine Bacteria Many (>30) H Ur Culture Indicated? Cult not indicated Vol Urine Centrifuged 10ml (spun) U Opiates 300ng/mL cut Negative Ur Oxycodone Screen Negative Urine Methadone Screen Negative Ur Barbiturates Screen Negative U Tricyclic Antidepress Negative Ur Phencyclidine Scrn Negative Ur Amphetamines Screen Negative U Methamphetamines Scrn Negative Ur MDMA Scrn (Ecstasy) Negative U Benzodiazepines Scrn Negative Urine Cocaine Screen Negative U Marijuana (THC) Screen Negative Urine Specific [place] Normal Ur Creatinine Normal PFSH Medical History Incomplete emptying of bladder Alzheimer disease Atrophic vaginitis Cognitive dysfunction Urge incontinence Secondhand smoke exposure Recurrent urinary tract infection History of asthma Lower extremity edema Hyperparathyroidism Swelling of left hand Obesity (BMI 30-39.9) Infection of fingernail of left hand Laceration of hand Shortness of breath Hypoxemia UTI (urinary tract infection) CVA, old, alterations of sensations Nocturnal hypoxemia Obstructive sleep apnea of adult (~08/2018) Excessive daytime sleepiness CVA (cerebral vascular accident) Fractures (~1962) Foot pain (~1962) Eczema (~2013) Hepatitis C (~1948) Cataract (~2014) Diabetes mellitus (~1996) Contusion of rib on right side Contusion of right shoulder Cellulitis Surgical History History of knee replacement Anesthesia Personal history of spine surgery (~2005) Personal history of spine surgery (~2003) Family History Brother No problems noted. Father No problems noted. Mother No problems noted. Daughter Diabetes mellitus Hypertension Thyroid condition Son Diabetes mellitus Social History household members: family Smoking Status: Never smoker alcohol intake: never caffeine: Yes Assessment & Plan Assessment & Plan narrative: 1. Sepsis secondary to acute cystitis with acute metabolic encephalopathy, elevated creatinine - patient was GCS 13 on ER evaluation, but is more responsive now after initial therapies - continue IV fluids, okay for diet. - continue ceftriaxone 1g q24 hours for presumed acute cystitis - follow up urine and blood cultures, initial UA not reflexed but ordered urine culture given presentation. - ammonia <9. 2. HTN - hold home antihypertensive for now. 3. Alzheimer's dementia - Consider PT / OT once more alert, continue home memantine when able. - daughters are able to care for patient at home during previous admission, normally patient is able to do most of her ADLs but requires some assistance. 4. Hyperparathyroidism - Calcium stable at 10.4, continue to follow with BMP. 5. DONOVAN - patient non-compliant with CPAP, will hold on Cpap therapy. Code: DNR/ DNI, okay with fluids, antibiotics and labs, surrogate is patient's daughter Malu (POA, other daughter is Talia) DVT: Lovenox daily I have utilized all available immediate resources to obtain, update, or review the patient's current medications. Dispo: patient admitted under inpatient status. Unclear if will be able to discharge home or possible SNF, consider PT/OT depending on progress vs discharge home if encephalopathy resolves Time-Based Coding :: [TOTAL MINUTES] spent with patient and on the chart (including review of chart, obtaining history, exam, reviewing outside data, placing orders, documenting exam and treatment plan, and counseling patient) on [DATE]. Quality VTE Deep Vein Thrombosis/Pulmonary Embolism Present on Admission: No
[2023-11-27] MEDS: ENOXAPARIN 40 MG/0.4 ML SYRINGE SUBCUT (09:03)
[2023-11-27 10:53] LABS: Add Manual Diff / Slide Review NO; Basophils Absolute Auto 100 /uL (0-100); Basophils Percent Auto 0.9 % (0-2); Eosinophils Absolute Auto 300 /uL (0-450); Eosinophils Percent Auto 4.7 % (2-4); Hematocrit 32.6 % (36-46); Hemoglobin 10.7 g/dL (12.0-16.0); Lymphocytes Absolute Auto 1200 /uL (1100-4500); Lymphocytes Percent Auto 16.7 % (25-40); Mean Corpuscular HGB Conc 32.9 % (30-36); Mean Corpuscular Hemoglobin 29.6 PG (26-34); Monocytes Absolute Auto 600 /uL (0-900); Monocytes Percent Auto 8.7 % (3-14); Neutrophils Absolute Auto 5000 /uL (1500-7000); Platelet Count 175 X10^3/uL (150-400); Red Blood Cell Count 3.62 X10^6/uL (4.0-5.2); Red Cell Distribution Width 15.3 % (11.6-14.8); White Blood Cell Count 7.2 X10^3/uL (4.5-11.0)
[2023-11-27 11:05] LABS: Alanine Aminotransferase 12 IU/L (<35); Albumin 2.5 g/dL (3.5-5.0); Alkaline Phosphatase 41 U/L (38-126); Aspartate Aminotransferase 26 IU/L (14-36); BUN Creatinine Ratio 18.4 (6-22); Bilirubin Total 0.4 mg/dL (0.2-1.3); Blood Urea Nitrogen 16 mg/dL (7-17); Calcium 8.6 mg/dL (8.4-10.2); Carbon Dioxide 23 mmol/L (22-32); Chloride 111 mmol/L (98-107); Estimated Glomerular Filt Rate > 60 mL/min (>60); Globulin 2.5 g/dL (1.7-4.1); Glucose 147 mg/dL (80-110); HEMOLYSIS 34 (0-50); Magnesium 1.5 mg/dL (1.6-2.3); Potassium 3.9 mmol/L (3.4-5.1); Sodium 137 mmol/L (137-145)
[2023-11-27] MEDS: SODIUM CHLORIDE 0.9% 1,000 ML 100 ML IV (11:21)
[2023-11-27] MEDS: cefTRIAXone 1,000 MG in SODIUM CHLORIDE 0.9% 100 ML 200 MG IV (12:03)
--- NOTE | 2023-11-27 12:49 | CM.DANOTE ---
Initial DCP Assessment Note Pt is an 88 yo female, resident of [place], PMH includes Alz dementia, arrives with acute encephalopathy, admitted for management of UTI with acute cystitis PCP: Keenan Stout Payer: [employer] Reviewed chart, patient lives with daughter Malu who provides all care, Talia visits often and can assist patient when Malu needs to leave the house. Patient is never left alone, sleeps most of the day according to family. Daughters anticipate patient will return home with them upon discharge and ask for a resumption of [facility] services for RN/PT. No barriers identified at this time to patient's safe discharge home w/family to assist; [facility] services. CM team will plan to follow clinical course closely and will call [facility] to discuss resumption of services. ARIES Pelayo Discharge Planning/Care Management CM Discharge Assessment Start: 11/27/23 12:46 Freq: Status: Active Protocol: Document 11/27/23 12:46 PAULINA (Rec: 11/27/23 12:49 PAULINA [id number]) Discharge Planning Assessment Assigned Ic Engineer ARIES Quinn DPOA/Assigned Designee Name pritesh Patel Contact Information [phone] Advance Directives? Yes Advance Directives on File No History Provided By Family Member,Medical Record Has Patient been admitted in last 30 Yes days? Comment Just about. Here [id number] Prior Living Arrangements House Household Members family Type of transporation used prior to Relies on Others admit Independent with ADL's No Is patient alert and oriented? No: Alz Dementia Needs Assistance With Grooming,Meal Prep,Toileting, Managing Medications,Home Chores / Shopping Comment Does not always use her walker Patient/Family Preference Home with Home Health Comment Home w/family to assist, [facility] Discharge Plan Home with Home Health Transportation Arrangement Daughter Referrals Initiated Home Health Additional Comment Family requests resumption of [facility]
[2023-11-27] MEDS: MAGNESIUM SULFATE 2 GM/50 ML PIGGYBACK IV (13:39)
[2023-11-28] VITALS (8 sets, daily range): BP systolic 126–155; BP diastolic 63–86; PULSE 66–81; RESP 16–18; TEMP 36.9–38.3; O2SAT 94–97
[2023-11-28 06:06] LABS: Alanine Aminotransferase 12 IU/L (<35); Albumin 2.9 g/dL (3.5-5.0); Albumin Globulin Ratio 1.1 (1.0-2.8); Alkaline Phosphatase 55 U/L (38-126); Aspartate Aminotransferase 17 IU/L (14-36); BUN Creatinine Ratio 16.7 (6-22); Bilirubin Total 0.3 mg/dL (0.2-1.3); Blood Urea Nitrogen 16 mg/dL (7-17); Calcium 9.7 mg/dL (8.4-10.2); Carbon Dioxide 25 mmol/L (22-32); Chloride 108 mmol/L (98-107); Estimated Glomerular Filt Rate 58 mL/min (>60); Globulin 2.7 g/dL (1.7-4.1); Glucose 129 mg/dL (80-110); HEMOLYSIS < 15 (0-50); Magnesium 2.1 mg/dL (1.6-2.3); Potassium 4.1 mmol/L (3.4-5.1); Sodium 136 mmol/L (137-145); Total Protein 5.6 g/dL (6.3-8.2)
[2023-11-28 06:15] LABS: Add Manual Diff / Slide Review NO; Basophils Absolute Auto 0 /uL (0-100); Basophils Percent Auto 0.5 % (0-2); Eosinophils Absolute Auto 400 /uL (0-450); Eosinophils Percent Auto 4.3 % (2-4); Hematocrit 36.3 % (36-46); Hemoglobin 11.8 g/dL (12.0-16.0); Lymphocytes Absolute Auto 1500 /uL (1100-4500); Lymphocytes Percent Auto 18.6 % (25-40); Mean Corpuscular HGB Conc 32.5 % (30-36); Mean Corpuscular Hemoglobin 29.2 PG (26-34); Mean Corpuscular Volume 89.9 fL (80-100); Monocytes Absolute Auto 800 /uL (0-900); Monocytes Percent Auto 9.4 % (3-14); Neutrophils Absolute Auto 5500 /uL (1500-7000); Neutrophils Percent Auto 67.2 % (50-75); Platelet Count 237 X10^3/uL (150-400); Red Blood Cell Count 4.03 X10^6/uL (4.0-5.2); Red Cell Distribution Width 14.9 % (11.6-14.8); White Blood Cell Count 8.2 X10^3/uL (4.5-11.0)
--- NOTE | 2023-11-28 07:51 | P.PN_ITS ---
Subjective Subjective Interval history: She says that she is feeling better. She looks quite good today. Her home medications will be ordered. She is definitely a cheerful person when she is feeling well. Her urine culture results are still pending. Her CBC and BMP are normal. Exam Vital Signs (past 8 hours): - 11/28/23 03:00 Temperature 99 F Pulse Rate 66 Respiratory Rate 18 Blood Pressure 126/71 Pulse Oximetry 97 Oxygen Flow Rate 0 Oxygen Delivery Method Room Air Oxygen Flow Rate 0 Narrative Exam Narrative: Alert and oriented to her name. No apparent distress. Heart is regular rate and rhythm without murmur Lungs are clear to auscultation bilaterally Extremities have no ankle edema. Abdomen is soft, bowel sounds positive, nontender, no organomegaly. Objective Labs 11/28/23 05:20 11/28/23 05:20 Labs: Laboratory Results - last 24 hr 11/27/23 11/28/23 10:35 05:20 WBC 7.2 8.2 RBC 3.62 L 4.03 Hgb 10.7 L 11.8 L Hct 32.6 L 36.3 MCV 90.0 89.9 MCH 29.6 29.2 MCHC 32.9 32.5 RDW 15.3 H 14.9 H Plt Count 175 237 Neut % (Auto) 69.0 67.2 Lymph % (Auto) 16.7 L 18.6 L [place] % (Auto) 8.7 9.4 Eos % (Auto) 4.7 H 4.3 H Baso % (Auto) 0.9 0.5 Neut # (Auto) 5000 5500 Lymph # (Auto) 1200 1500 [place] # (Auto) 600 800 Eos # (Auto) 300 400 Baso # (Auto) 100 0 Sodium 137 136 L Potassium 3.9 4.1 Chloride 111 H 108 H Carbon Dioxide 23 25 BUN 16 16 Creatinine 0.87 0.96 Estimated GFR > 60 58 L BUN/Creatinine Ratio 18.4 16.7 Glucose 147 H 129 H Calcium 8.6 9.7 Magnesium 1.5 L 2.1 Total Bilirubin 0.4 0.3 AST 26 17 ALT 12 12 Alkaline Phosphatase 41 55 Total Protein 5.0 L 5.6 L Albumin 2.5 L 2.9 L Globulin 2.5 2.7 Albumin/Globulin Ratio 1.0 1.1 [facility] Medical History Incomplete emptying of bladder Alzheimer disease Atrophic vaginitis Cognitive dysfunction Urge incontinence Secondhand smoke exposure Recurrent urinary tract infection History of asthma Lower extremity edema Hyperparathyroidism Swelling of left hand Obesity (BMI 30-39.9) Infection of fingernail of left hand Laceration of hand Shortness of breath Hypoxemia UTI (urinary tract infection) CVA, old, alterations of sensations Nocturnal hypoxemia Obstructive sleep apnea of adult (~08/2018) Excessive daytime sleepiness CVA (cerebral vascular accident) Fractures (~1962) Foot pain (~1962) Eczema (~2013) Hepatitis C (~1948) Cataract (~2014) Diabetes mellitus (~1996) Contusion of rib on right side Contusion of right shoulder Cellulitis Surgical History History of knee replacement Anesthesia Personal history of spine surgery (~2005) Personal history of spine surgery (~2003) Family History Brother No problems noted. Father No problems noted. Mother No problems noted. Daughter Diabetes mellitus Hypertension Thyroid condition Son Diabetes mellitus Social History household members: family Smoking Status: Never smoker alcohol intake: never caffeine: Yes Assessment & Plan Assessment & Plan narrative: 1. Sepsis secondary to acute cystitis with acute metabolic encephalopathy, elevated creatinine - MS now resolved to baseline - stop IV fluids, okay for diet. - continue ceftriaxone 1g q24 hours for presumed acute cystitis - follow up urine and blood cultures, initial UA not reflexed but ordered urine culture given presentation. - no urine culture report as of 11/28/2023. - ammonia <9. 2. HTN -resumed amlodipine and losartan. 3. Alzheimer's dementia - Consider PT / OT once more alert, continue home memantine. - daughters are able to care for patient at home during previous admission, normally patient is able to do most of her ADLs but requires some assistance. 4. Hyperparathyroidism - Calcium stable at 10.4, continue to follow with BMP. 5. DONOVAN - patient non-compliant with CPAP, will hold on Cpap therapy. Code: DNR/ DNI, okay with fluids, antibiotics and labs, surrogate is patient's daughter Malu (POA, other daughter is Talia) DVT: Lovenox daily Time-Based Coding :: [TOTAL MINUTES] spent with patient and on the chart (including review of chart, obtaining history, exam, reviewing outside data, placing orders, documenting exam and treatment plan, and counseling patient) on [DATE]. Quality VTE Deep Vein Thrombosis/Pulmonary Embolism Present on Admission: No
[2023-11-28] MEDS: ENOXAPARIN 40 MG/0.4 ML SYRINGE SUBCUT (09:58)
[2023-11-28] MEDS: INSULIN GLARGINE 100 UNIT/ML 3ML PEN 8 UNIT SUBCUT (11:25)
[2023-11-28] MEDS: estradioL 1 MG TABLET PO (11:26)
[2023-11-28] MEDS: METFORMIN HCL 500 MG TABLET 1000 MG PO ×2 (11:26→21:05)
[2023-11-28] MEDS: AMLODIPINE 5 MG TABLET 10 MG PO (11:26)
[2023-11-28] MEDS: cefTRIAXone 1,000 MG in SODIUM CHLORIDE 0.9% 100 ML 200 MG IV (13:59)
--- NOTE | 2023-11-28 14:26 | CM.DPNOTE ---
DCP Cont Placed call to [facility], spoke with Solange who explained she would need an updated F2F and resumption of services order for patient's resumption of care once home. Faxed completed F2F and resumption order with face sheet and H+P to [facility] at F [phone]. Updated Solange that patient is expected to be discharged home with family tomorrow. Plan: Discharge likely home with daughters over the next 24-48 hrs, family to transport, resumption of [facility] RN (wound care)/ PT/OT. JW
[2023-11-28] MEDS: LOSARTAN 25 MG TABLET PO (16:56)
[2023-11-28] MEDS: MEMANTINE HCL 5 MG TABLET PO (21:04)
[2023-11-28] MEDS: CITALOPRAM 10 MG TABLET PO (21:04)
[2023-11-28] MEDS: QUETIAPINE 25 MG TABLET PO (21:05)
[2023-11-29] VITALS (10 sets, daily range): BP systolic 118–143; BP diastolic 56–75; PULSE 56–71; RESP 14–18; TEMP 36.7–37.5; O2SAT 94–98
[2023-11-29] MEDS: LEVOTHYROXINE 50 MCG TABLET PO (05:52)
[2023-11-29 06:56] LABS: Add Manual Diff / Slide Review NO; Basophils Absolute Auto 0 /uL (0-100); Basophils Percent Auto 0.5 % (0-2); Eosinophils Absolute Auto 400 /uL (0-450); Eosinophils Percent Auto 4.5 % (2-4); Hematocrit 35.6 % (36-46); Hemoglobin 11.7 g/dL (12.0-16.0); Lymphocytes Absolute Auto 2500 /uL (1100-4500); Lymphocytes Percent Auto 30.3 % (25-40); Mean Corpuscular HGB Conc 32.8 % (30-36); Mean Corpuscular Hemoglobin 29.3 PG (26-34); Mean Corpuscular Volume 89.3 fL (80-100); Monocytes Absolute Auto 800 /uL (0-900); Monocytes Percent Auto 9.7 % (3-14); Neutrophils Absolute Auto 4600 /uL (1500-7000); Platelet Count 218 X10^3/uL (150-400); Red Blood Cell Count 3.99 X10^6/uL (4.0-5.2); Red Cell Distribution Width 15.1 % (11.6-14.8); White Blood Cell Count 8.3 X10^3/uL (4.5-11.0)
[2023-11-29 07:05] LABS: Alanine Aminotransferase 13 IU/L (<35); Albumin 2.9 g/dL (3.5-5.0); Albumin Globulin Ratio 1.2 (1.0-2.8); Alkaline Phosphatase 50 U/L (38-126); Aspartate Aminotransferase 15 IU/L (14-36); BUN Creatinine Ratio 18.5 (6-22); Bilirubin Total 0.3 mg/dL (0.2-1.3); Blood Urea Nitrogen 22 mg/dL (7-17); Carbon Dioxide 23 mmol/L (22-32); Chloride 110 mmol/L (98-107); Estimated Glomerular Filt Rate 45 mL/min (>60); Globulin 2.5 g/dL (1.7-4.1); Glucose 112 mg/dL (80-110); HEMOLYSIS < 15 (0-50); Magnesium 1.8 mg/dL (1.6-2.3); Potassium 4.3 mmol/L (3.4-5.1); Sodium 136 mmol/L (137-145); Total Protein 5.4 g/dL (6.3-8.2)
[2023-11-29] MEDS: AMLODIPINE 5 MG TABLET 10 MG PO (09:29)
[2023-11-29] MEDS: FUROSEMIDE 20 MG TABLET PO (09:29)
[2023-11-29] MEDS: estradioL 1 MG TABLET PO (09:29)
[2023-11-29] MEDS: ENOXAPARIN 40 MG/0.4 ML SYRINGE SUBCUT (09:29)
[2023-11-29] MEDS: ATORVASTATIN 20 MG TABLET 5 MG PO (09:29)
[2023-11-29] MEDS: METFORMIN HCL 500 MG TABLET 1000 MG PO ×2 (09:29→21:01)
[2023-11-29] MEDS: INSULIN GLARGINE 100 UNIT/ML 3ML PEN 8 UNIT SUBCUT (09:30)
[2023-11-29] MEDS: guaiFENesin ER 600 MG TAB PO (09:30)
--- NOTE | 2023-11-29 11:53 | PT.IIE ---
Current Diagnoses Sepsis, unspecified organism (11/26/23) Surgical History (Last Reviewed 11/26/23 @ 19:13 by Evan Pompa DO) Anesthesia History of knee replacement Personal history of spine surgery (~2003) Personal history of spine surgery (~2005) Medical History (Last Reviewed 11/26/23 @ 19:13 by Evan Pompa DO) Alzheimer disease Atrophic vaginitis Cataract (~2014) Cellulitis Cognitive dysfunction Contusion of rib on right side Contusion of right shoulder CVA (cerebral vascular accident) CVA, old, alterations of sensations Diabetes mellitus (~1996) Eczema (~2013) Excessive daytime sleepiness Foot pain (~1962) Fractures (~1962) Hepatitis C (~1948) History of asthma Hyperparathyroidism Hypoxemia Incomplete emptying of bladder Infection of fingernail of left hand Laceration of hand Lower extremity edema Nocturnal hypoxemia Obesity (BMI 30-39.9) Obstructive sleep apnea of adult (~08/2018) Recurrent urinary tract infection Secondhand smoke exposure Shortness of breath Swelling of left hand Urge incontinence UTI (urinary tract infection) Physical Therapy Inpatient Evaluation/Re-Eval M1 PT/OT-IP Prior Functional Status Start: 11/29/23 08:48 Freq: NEEDED Status: Active Protocol: Document 11/29/23 11:23 MB (Rec: 11/29/23 11:53 MB [id number]) Medical Review Prior Functional Status Medical History Reviewed Yes Communication Unsure baseline diet or communication Mobility and Gait Unclear, pt mostly answers yes and no questions and does answer some other one word questions. She states she doesn't walk but then she states she walks to the BR. It appears that pt lives with at least one daughter and has daughter assistance per chart and pt agrees with this when asked. Activities of Daily Living and IADL's Assistance from daughter Social History Household Members family Living Arrangements House Number of Floors (Floors) One Floor Number of Stairs To Enter/Railing? 3 steps with B rail to enter home Home Environment Walk in Shower Home Equipment Front Wheel Walker Employment Status Retired Additional Social History Comment When asked if she sleeps in a regular bed, pt agrees. PT lists several equipment and she does not respond about having them or not M2 PT-IP Current Condition Start: 11/29/23 08:48 Freq: NEEDED Status: Active Protocol: Document 11/29/23 11:23 MB (Rec: 11/29/23 11:53 MB [id number]) Physical Therapy Current Condition Current Condition Evaluation Date 11/29/23 Treatment Diagnosis AMS M3 PT-IP Subjective Start: 11/29/23 08:48 Freq: NEEDED Status: Active Protocol: Document 11/29/23 11:23 MB (Rec: 11/29/23 11:53 MB [id number]) Subjective Physical Therapy Visit Type Type Initial Evaluation Visit Start Time 11:23 Visit Stop Time 11:40 Number of CYCLING INSTRUCTOR Visits 0 Physical Therapy Visit Comments Patient Comments Pt with no spontaneous conversation, is pleasant and smiling throughout treatment. Therapy Pain Assessment Pain When Pain Assessed At Rest Pain Present Pain Present Denied Pain M4 PT-IP Mobility and Gait Start: 11/29/23 08:48 Freq: NEEDED Status: Active Protocol: Document 11/29/23 11:23 MB (Rec: 11/29/23 11:53 MB [id number]) PT-Bed Mobility Assessment Rolling Type of Rolling Roll to Left Level of Assist Contact Guard Assistance,1 Person Assistance Supine to Sit Supine to Sit Contact Guard Assistance,1 Person Assistance,Head of Bed Elevated,Bedrails Scooting Scooting to Edge of Bed Contact Guard Assistance PT-Transfer Assessment Sit to and From Stand Sit to and from Stand Maximum Assistance,1 Person Assistance,Use of Upper Extremities Equipment Transfer Assistive Device Gait Belt,Front Wheeled Walker Orthotic/Prosthetic Devices or Brace: No Transfers Transfer Destination Chair Transfer Technique Stand Step Pivot Transfer Ability Level of Assist Maximum Assistance,1 Person Assistance,Use of Upper Extremities Comments Mobility Comments Increased time and ongoing cues to con't with bed mobility. Pt requires dependent assistance to don socks and she appears to have some changes in left ankle. HOB increased and use of head of bed rails and foot of bed small bed rail to scoot out to EOB. Max A to stand and then mod A to take a few steps to the left to the chair with RW and cues, PT assist to move walker. Gait Assessment Gait Gait Assistance Required: Moderate Assistance Distance (Feet) 1 Able to Maintain Weight Bearing Status No During Gait Assistive Devices Assistive Device Gait Belt,Front Wheeled Walker Orthotic/Prosthetic Devices or Brace: No Gait Deviations General Gait Pattern Decreased Stride Length, Decreased Feet Clearance, Flexed Trunk,Step-to Gait,Wide Based Gait Factors Limiting Gait Function Factors Limiting Gait Function Decreased Activity Tolerance, Difficulty Following Directions,Incoordination, Limited Range of Motion,Poor Balance,Poor Safety Awareness Comments Gait Comments Decreased foot clearance with some changes noted in left ankle PT-Balance Assessment Sitting Balance and Reactions Static Sitting Balance Ability Fair Dynamic Sitting Balance Ability Fair Standing Balance and Reactions Static Standing Balance Ability Poor Dynamic Standing Balance Ability Poor Device Used RW M5 PT-IP Objective Assessments Start: 11/29/23 08:48 Freq: NEEDED Status: Active Protocol: Document 11/29/23 11:23 MB (Rec: 11/29/23 11:53 MB [id number]) Orientation Orientation/Cognition Level of Alertness Confusional State Orientation Name,Birthday,Month Language Function Ability Hard of Hearing Safety Awareness Decreased Safety Awareness Memory Description Short Term Impaired,Intermediate Impaired Comments Minimal verbalizations Gross Range of Motion Upper Extremity ROM Impairments Defer to OT Lower Extremity ROM Impairments Pt does not follow ROM or MMT commands, appears to have some changes in left ankle with attempted ROM Strength Comments Strength Comments Pt does not follow MMT commands and she has functional weakness in her legs Coordination Assessment Gross Coordination Gross Coordination Impaired Sensation Assessment Comments Sensation Comments Pt does not follow sensory commands Muscle Tone Muscle Tone WNL Yes M6 PT-IP Treatment Start: 11/29/23 08:48 Freq: NEEDED Status: Active Protocol: Document 11/29/23 11:23 MB (Rec: 11/29/23 11:53 MB [id number]) Physical Therapy Treatment Exercises Exercises Ankle Pumps Education Education Provided Safety M7 PT-IP Assessment and Plan Start: 11/29/23 08:48 Freq: NEEDED Status: Active Protocol: Document 11/29/23 11:23 MB (Rec: 11/29/23 11:53 MB [id number]) PT Summary Assessment and Plan Potential Rehabilitation Potential Fair Status of Condition at Evaluation Evolving Summary Impairments ROM,Strength,Balance, Coordination,Cognition,Bed Mobility,Transfers,Gait, Activity Tolerance Progress Towards Goals Slow Progress - Other Assessment Summary Pt is an 88 y/o female presenting with decreased verbalizations and command following. Andry requires constant cueing and HOB increased and use of rails for supine to sit to EOB. She is max A for STS today and mod A to step to chair. Pt has daughter assistance at baseline and unsure how much manual assistance she required . She will require 24 hour assistance at d/c and recommend PT consult at d/c. Goals Bed Mobility Goal Standby Assistance Transfer Goal Contact Guard Assistance,Four Wheeled Walker Gait Goal Contact Guard Assistance,Four Wheel Walker Gait Distance 50 Other Goals Pt states there are 3 steps and two rails to enter home. If this is true and there is no flat entrance, will need to ascend and descend 3 steps with two rails and no more than CGA to allow safe home entrance. Days to Meet Goals 5 Frequency of Treatment Frequency Of Treatment Once a Day Treatment Plan Physical Therapy Treatment Plan Bed Mobility Training,Transfer Training,Gait Training, Therapeutic Exercise,Balance Retraining,Discharge Planning, Hot or Cold Pack,Neuromuscular Re-ed,Coordination Retraining ,Manual Therapy Weight Bearing Status Weight Bearing Status Weight Bear as Tolerated Recommendations To Nursing Amount of Assist Needed 2 Person Assist Discharge Recommendations Other Discharge Recommendations Likely home with 24 hour assistance and HHPT consult. Transportation Needs at Discharge Private Vehicle,Wheelchair/ Cabulance
[2023-11-29] MEDS: INSULIN LISPRO 100 UNIT/ML 3ML VIAL SUBCUT ×2 (12:00→16:45)
--- NOTE | 2023-11-29 12:12 | CM.DPC ---
DCP Cont. Reviewed EMR and team rounds for status updates. Per Hospitalist, pt is working at advancing her diet today. Will monitor for progress and final d/c needs/recommendations.
[2023-11-29] MEDS: cefTRIAXone 1,000 MG in SODIUM CHLORIDE 0.9% 100 ML 200 MG IV (13:37)
[2023-11-29 13:59] LABS: Appearance Urine UA CLEAR; Bilirubin Urine UA NEGATIVE (NEGATIVE); Color Urine UA YELLOW; Glucose Urine UA NEGATIVE (Negative); Ketones Urine UA NEGATIVE (NEGATIVE); Leukocyte Esterase Urine UA 3+ (NEGATIVE); Nitrite Urine UA NEGATIVE (Negative); Occult Blood Urine UA NEGATIVE (Negative); Protein Urine UA NEGATIVE (Negative); Urobilinogen Urine UA 0.2 E.U./dL (0.2)
[2023-11-29 14:01] LABS: pH Urine UA 6.5 (4.5-8.0)
[2023-11-29 14:09] LABS: Bacteria Urine Moderate (10-30); Culture Indicated Urine Specimen Cultured; RBC Urine 0-1/HPF (0-5/HPF); Squamous Epithelial Cell Urine 10-30 /HPF (0-5/HPF); Urine Volume 10mL (spun); WBC Urine 10-30/HPF (0-5/HPF)
--- NOTE | 2023-11-29 14:32 | OT.IP.EVAL ---
Current Diagnoses Sepsis, unspecified organism (11/26/23) Past Medical History (Last Reviewed 11/26/23 @ 19:13 by Evan Pompa DO) Alzheimer disease Atrophic vaginitis Cataract (~2014) Cellulitis Cognitive dysfunction Contusion of rib on right side Contusion of right shoulder CVA (cerebral vascular accident) CVA, old, alterations of sensations Diabetes mellitus (~1996) Eczema (~2013) Excessive daytime sleepiness Foot pain (~1962) Fractures (~1962) Hepatitis C (~1948) History of asthma Hyperparathyroidism Hypoxemia Incomplete emptying of bladder Infection of fingernail of left hand Laceration of hand Lower extremity edema Nocturnal hypoxemia Obesity (BMI 30-39.9) Obstructive sleep apnea of adult (~08/2018) Recurrent urinary tract infection Secondhand smoke exposure Shortness of breath Swelling of left hand Urge incontinence UTI (urinary tract infection) Surgical History (Last Reviewed 11/26/23 @ 19:13 by Evan Pompa DO) Anesthesia History of knee replacement Personal history of spine surgery (~2003) Personal history of spine surgery (~2005) Occupational Therapy Inpatient Evaluation/Re-Eval M1 PT/OT-IP Prior Functional Status Start: 11/29/23 08:48 Freq: NEEDED Status: Active Protocol: Document 11/29/23 14:35 [facility] (Rec: 11/29/23 14:47 [facility] [id number]) Medical Review Prior Functional Status Medical History Reviewed Yes Communication Unsure baseline diet or communication Mobility and Gait Pt states uses a walker to walk. Activities of Daily Living and IADL's Assistance from daughter for all needs. Pt's daughter states pt can use the bathroom , but usually has to assist for completeness. Social History Household Members family Living Arrangements House Number of Floors (Floors) One Floor Number of Stairs To Enter/Railing? 3 steps with B rail to enter home Home Equipment Four Wheel Walker Employment Status Retired Additional Social History Comment When asked if she sleeps in a regular bed, pt agrees. PT lists several equipment and she does not respond about having them or not Pt has a walk in tub. M2 OT-IP Current Condition Start: 11/29/23 14:31 Freq: Status: Active Protocol: Document 11/29/23 14:35 [facility] (Rec: 11/29/23 14:47 [facility] [id number]) Occupational Therapy Current Condition Current Condition Evaluation Date 11/29/23 Treatment Diagnosis Sepsis due to acute cystitis with AMS Diagnosis Onset Date 11/26/23 M3 OT- IP Subjective and Pain Start: 11/29/23 14:31 Freq: Status: Active Protocol: Document 11/29/23 14:35 [facility] (Rec: 11/29/23 14:47 [facility] [id number]) OT- Subjective Occupational Therapy Visit Type Type Initial Evaluation Visit Start Time 14:00 Visit Stop Time 14:32 Occupational Therapy Visit Comments Patient Comments Pt agreed to get back to bed. Patient/Caregiver Goals To go home. OT Pain Assessment Pain When Pain Assessed At Rest Pain Present Pain Present Denied Pain M4 OT- IP ADL's Start: 11/29/23 14:31 Freq: Status: Active Protocol: Document 11/29/23 14:35 [facility] (Rec: 11/29/23 14:47 [facility] [id number]) OT [id number] Comments OT Self-Feeding Comments Not at meal time. OT ADL-Grooming Comments OT Grooming Comments NOt performed. OT ADL-Oral Care Comments Oral Care Comments Not performed. OT ADL-Dressing General Eval Lower Body Dressing Ability Maximum Assistance Areas Needing Assistance Socks OT ADL-Toileting Comments OT Toileting Comments Pt use of purewick. OT ADL-Bathing Comments OT Bathing Comments Pt has a walk in tub that her daughter assist her at home. M5 OT- IP IADL's Start: 11/29/23 14:31 Freq: Status: Active Protocol: Document 11/29/23 14:35 [facility] (Rec: 11/29/23 14:47 [facility] [id number]) OT-Instrumental Activities of Daily Living Deficits IADL Deficits Identified Deficits Home Safety Awareness Awareness of Need for Assistance at Home Decreased Awareness Ability to Problem Solve Emergency Unable to Problem Solve Situations Home Safety Comments Pt has Alzheimer's dementia and that her daughter assists with all her needs. Medication Management Medication Management Caregiver Administers Money Management Money Management Caregiver Provides Assistance Meal Preparation Meal Preparation Caregiver Provides Assist Computer Engineer Computer Engineer Caregiver Provides Assist Driving Driving Caregiver Provides Assist M6 OT- IP Functional Cognition Start: 11/29/23 14:31 Freq: Status: Active Protocol: Document 11/29/23 14:35 [facility] (Rec: 11/29/23 14:47 [facility] [id number]) Cognitive Factors Limiting Selfcare Function Cognitive Ability Level of Alertness Alert Patient Orientation Name,Birthday,Place,Situation Attention Span Ability Capable of Focused Attention, Capable of Sustained Attention Ability to Follow Commands Able to Follow One Step Commands with Increased Time, Able to Follow One Step Commands with Repetition Memory Description Short Term Impaired,Snf Impaired,Working Impaired Cognitive Comments Cognitive Assessment Comments Pt able to follow simple commands to assist her to get back to bed. M7 OT- IP Mobility and Balance Start: 11/29/23 14:31 Freq: Status: Active Protocol: Document 11/29/23 14:35 [facility] (Rec: 11/29/23 14:47 [facility] [id number]) OT- Bed Mobility Assessment Sit to Supine Sit to Supine Assist Moderate Assistance OT-Transfer Assessment Sit to and From Stand Sit to and from Stand Moderate Assistance Transfers Transfer Ability Moderate Assistance Technique Transfer Destination Bed,Chair Transfer Technique Stand Step Pivot Devices Transfer Assistive Devices Gait Belt,Front Wheeled Walker Comments Mobility Comments Pt MODA to stand and MODa to transfer back to the bed with the FWW and assist to help get her legs back into bed. OT- Balance Assessment Sitting Balance and Reactions Static Sitting Balance Ability Good Dynamic Sitting Balance Ability Fair Standing Balance and Reactions Static Standing Balance Ability Fair Dynamic Standing Balance Ability Poor M8 OT- IP Objective Assessments Start: 11/29/23 14:31 Freq: Status: Active Protocol: Document 11/29/23 14:35 [facility] (Rec: 11/29/23 14:47 [facility] [id number]) OT Gross Range of Motion Upper Extremity Range of Motion ROM Impairments Grossly WFL for age and lifestyle. OT Strength Comments Strength Comments 4/5 BUE throughout OT- Coordination Assessment Comments Coordination Comments Pt able to follow finger to thumb opposition. M9 OT- IP Assessment and Plan Start: 11/29/23 14:31 Freq: Status: Active Protocol: Document 11/29/23 14:35 [facility] (Rec: 11/29/23 14:47 [facility] [id number]) OT Summary Assessment and Plan Potential Rehabilitation Potential Good Analytic Complexity at Evaluation Moderate Summary OT Impairments Strength,Balance,Functional Mobility,Grooming,Dressing, Toileting,Bathing,Toilet Transfers,Shower Transfers, Activity Tolerance Progress Towards Goals Slow Progress due to Medical Issues,Slow Progress due to Activity Tolerance Assessment Summary Pt MOD complexity and main barriers are decreased balance , activity tolerance and will need more assist for ADL and mobility needs at home. Pt has 24/ assist at home and will benefit from home health. Goals Toileting Goal Minimal Assistance Bathing Goal Moderate Assistance Toilet Transfer Goal Contact Guard Assistance Shower Transfer Goal Minimal Assistance Days to Meet Goals 3 Frequency of Treatment Frequency Of Treatment Once a Day Treatment Plan OT Treatment Plan ADL Training,Functional Mobility,Patient/Family Education,Discharge Planning Discharge Recommendations OT Discharge Recommendations Home with 24/ Assist Available,Home Health Home Equipment Needs Pt may need FWW. Transportation Needs at Discharge Private Vehicle
--- NOTE | 2023-11-29 15:34 | PM.PN.1 ---
Subjective Subjective Interval history: Patient is again somnolent this morning, arousable but falls asleep very easily. Worsened compared to yesterday. Repeated UA which is again positive. Will broaden to meropenem for possible resistant infection. Urine cultures sent today. Exam Vital Signs (past 8 hours): - 11/29/23 08:00 11/29/23 09:00 11/29/23 12:00 Temperature 98.1 F 99 F Pulse Rate 69 71 Respiratory Rate 14 16 Blood Pressure 143/75 H 123/67 Pulse Oximetry 96 96 97 Oxygen Delivery Method Room Air 11/29/23 13:00 Temperature Pulse Rate Respiratory Rate Blood Pressure Pulse Oximetry 97 Oxygen Delivery Method Room Air Oxygen Delivery Method Room Air Oxygen Flow Rate 0 Narrative Exam Narrative: Alert but falls asleep easily. Slight facial asymmetry but clears when awake. Heart is regular rate and rhythm without murmur Lungs are clear to auscultation bilaterally Extremities have no ankle edema. Abdomen is soft, bowel sounds positive, nontender, no organomegaly. Objective Labs 11/29/23 06:30 11/29/23 06:30 Labs: Laboratory Results - last 24 hr 11/29/23 11/29/23 06:30 13:42 WBC 8.3 RBC 3.99 L Hgb 11.7 L Hct 35.6 L MCV 89.3 MCH 29.3 MCHC 32.8 RDW 15.1 H Plt Count 218 Neut % (Auto) 55.0 Lymph % (Auto) 30.3 [place] % (Auto) 9.7 Eos % (Auto) 4.5 H Baso % (Auto) 0.5 Neut # (Auto) 4600 Lymph # (Auto) 2500 [place] # (Auto) 800 Eos # (Auto) 400 Baso # (Auto) 0 Sodium 136 L Potassium 4.3 Chloride 110 H Carbon Dioxide 23 BUN 22 H Creatinine 1.19 H Estimated GFR 45 L BUN/Creatinine Ratio 18.5 Glucose 112 H Calcium 10.0 Magnesium 1.8 Total Bilirubin 0.3 AST 15 ALT 13 Alkaline Phosphatase 50 Total Protein 5.4 L Albumin 2.9 L Globulin 2.5 Albumin/Globulin Ratio 1.2 Urine Color Yellow Urine Appearance Clear Urine pH 6.5 Ur Specific [place] 1.010 Urine Protein Negative Urine Glucose (UA) Negative Urine Ketones Negative Urine Occult Blood Negative Urine Nitrate Negative Urine Bilirubin Negative Urine Urobilinogen 0.2 Ur Leukocyte Esterase 3+ H Urine RBC 0-1/hpf Urine WBC 10-30/hpf H Ur Squamous Epith Cells 10-30 /hpf H Urine Bacteria Moderate (10-30) H Ur Culture Indicated? Specimen cultured Vol Urine Centrifuged 10ml (spun) PFSH Medical History Incomplete emptying of bladder Alzheimer disease Atrophic vaginitis Cognitive dysfunction Urge incontinence Secondhand smoke exposure Recurrent urinary tract infection History of asthma Lower extremity edema Hyperparathyroidism Swelling of left hand Obesity (BMI 30-39.9) Infection of fingernail of left hand Laceration of hand Shortness of breath Hypoxemia UTI (urinary tract infection) CVA, old, alterations of sensations Nocturnal hypoxemia Obstructive sleep apnea of adult (~08/2018) Excessive daytime sleepiness CVA (cerebral vascular accident) Fractures (~1962) Foot pain (~1962) Eczema (~2013) Hepatitis C (~1948) Cataract (~2014) Diabetes mellitus (~1996) Contusion of rib on right side Contusion of right shoulder Cellulitis Surgical History History of knee replacement Anesthesia Personal history of spine surgery (~2005) Personal history of spine surgery (~2003) Family History Brother No problems noted. Father No problems noted. Mother No problems noted. Daughter Diabetes mellitus Hypertension Thyroid condition Son Diabetes mellitus Social History household members: family Smoking Status: Never smoker alcohol intake: never caffeine: Yes Assessment & Plan Assessment & Plan narrative: 1. Sepsis secondary to acute cystitis with acute metabolic encephalopathy, DOUGLAS - had improved but worsened mentation / encephalopathy again today. UA positive again, slightly worse with more WBC. No leukocytosis on labs, electrolytes stable. Cr worsening the last few days as well. - continue diet - continue ceftriaxone 1g q24 hours for presumed acute cystitis, but repeat UA today still positive. Broaden to meropenem for possible resistant organism. Cultures sent today. - follow up repeat urine cultures - ammonia <9. 2. HTN -resumed amlodipine and losartan. 3. Alzheimer's dementia - Consider PT / OT once more alert, continue home memantine. - daughters are able to care for patient at home during previous admission, normally patient is able to do most of her ADLs but requires some assistance. 4. Hyperparathyroidism - Calcium stable at 10.0 today, continue to follow with BMP. 5. DONOVAN - patient non-compliant with CPAP, will hold on Cpap therapy. Code: DNR/ DNI, okay with fluids, antibiotics and labs, surrogate is patient's daughter Malu (POA, other daughter is Talia) DVT: Lovenox daily Additional history obtained via discussions with bedside RN, patient's daughters, previous hospitalist on duty, case management and pharmacist. These discussions contributed to the creation of the above assessment and plan. I have reviewed patient's presenting documentation, labs, and imaging personally. Time-Based Coding :: [TOTAL MINUTES] spent with patient and on the chart (including review of chart, obtaining history, exam, reviewing outside data, placing orders, documenting exam and treatment plan, and counseling patient) on [DATE]. Quality VTE Deep Vein Thrombosis/Pulmonary Embolism Present on Admission: No
[2023-11-29] MEDS: MEROPENEM 1 GM in SODIUM CHLORIDE 0.9% 100 ML IV (16:31)
[2023-11-29] MEDS: LOSARTAN 25 MG TABLET PO (16:51)
[2023-11-29] MEDS: MEMANTINE HCL 5 MG TABLET PO (21:01)
[2023-11-29] MEDS: CITALOPRAM 10 MG TABLET PO (21:01)
[2023-11-30] VITALS (10 sets, daily range): BP systolic 126–143; BP diastolic 58–83; PULSE 60–68; RESP 14–18; TEMP 36.6–37.1; O2SAT 96–98
[2023-11-30] MEDS: MEROPENEM 1 GM in SODIUM CHLORIDE 0.9% 100 ML IV (04:34)
[2023-11-30] MEDS: LEVOTHYROXINE 50 MCG TABLET PO (05:39)
[2023-11-30 06:17] LABS: Add Manual Diff / Slide Review NO; Basophils Absolute Auto 100 /uL (0-100); Basophils Percent Auto 0.6 % (0-2); Eosinophils Absolute Auto 500 /uL (0-450); Eosinophils Percent Auto 5.7 % (2-4); Hematocrit 37.1 % (36-46); Hemoglobin 12.1 g/dL (12.0-16.0); Lymphocytes Absolute Auto 2000 /uL (1100-4500); Lymphocytes Percent Auto 23.4 % (25-40); Mean Corpuscular HGB Conc 32.6 % (30-36); Mean Corpuscular Hemoglobin 28.9 PG (26-34); Mean Corpuscular Volume 88.6 fL (80-100); Monocytes Absolute Auto 800 /uL (0-900); Monocytes Percent Auto 8.9 % (3-14); Neutrophils Absolute Auto 5300 /uL (1500-7000); Neutrophils Percent Auto 61.4 % (50-75); Platelet Count 225 X10^3/uL (150-400); Red Blood Cell Count 4.19 X10^6/uL (4.0-5.2); Red Cell Distribution Width 15.3 % (11.6-14.8); White Blood Cell Count 8.6 X10^3/uL (4.5-11.0)
[2023-11-30 06:28] LABS: BUN Creatinine Ratio 21.2 (6-22); Blood Urea Nitrogen 24 mg/dL (7-17); Calcium 9.9 mg/dL (8.4-10.2); Carbon Dioxide 25 mmol/L (22-32); Chloride 106 mmol/L (98-107); Estimated Glomerular Filt Rate 47 mL/min (>60); Glucose 106 mg/dL (80-110); HEMOLYSIS < 15 (0-50); Magnesium 1.6 mg/dL (1.6-2.3); Potassium 4.7 mmol/L (3.4-5.1); Sodium 135 mmol/L (137-145)
[2023-11-30] MEDS: FUROSEMIDE 20 MG TABLET PO (08:31)
[2023-11-30] MEDS: ENOXAPARIN 40 MG/0.4 ML SYRINGE SUBCUT (08:31)
[2023-11-30] MEDS: INSULIN GLARGINE 100 UNIT/ML 3ML PEN 8 UNIT SUBCUT (08:31)
[2023-11-30] MEDS: estradioL 1 MG TABLET PO (08:31)
[2023-11-30] MEDS: AMLODIPINE 5 MG TABLET 10 MG PO (08:31)
[2023-11-30] MEDS: guaiFENesin ER 600 MG TAB PO (08:31)
[2023-11-30] MEDS: METFORMIN HCL 500 MG TABLET 1000 MG PO ×2 (08:31→16:57)
[2023-11-30] MEDS: ATORVASTATIN 20 MG TABLET 5 MG PO (08:31)
--- NOTE | 2023-11-30 11:00 | PT.IPTN ---
Current Diagnoses Sepsis, unspecified organism (11/26/23) Physical Therapy Treatment Note M2 PT-IP Current Condition Start: 11/29/23 08:48 Freq: NEEDED Status: Active Protocol: Document 11/29/23 11:23 MB (Rec: 11/29/23 11:53 MB [id number]) Physical Therapy Current Condition Current Condition Evaluation Date 11/29/23 Treatment Diagnosis AMS M3 PT-IP Subjective Start: 11/29/23 08:48 Freq: NEEDED Status: Active Protocol: Document 11/30/23 12:11 TS (Rec: 11/30/23 12:19 TS [id number]) Subjective Physical Therapy Visit Type Type Treatment Note Visit Start Time 11:00 Visit Stop Time 11:23 Number of BOOTH CASHIER Visits 1 Physical Therapy Visit Comments Patient Comments Pt found resting in the chair, daughters in the room, she is agreeable to PT. M4 PT-IP Mobility and Gait Start: 11/29/23 08:48 Freq: NEEDED Status: Active Protocol: Document 11/30/23 12:11 TS (Rec: 11/30/23 12:19 TS [id number]) PT-Transfer Assessment Sit to and From Stand Sit to and from Stand Minimal Assistance,1 Person Assistance Equipment Transfer Assistive Device Gait Belt,Front Wheeled Walker Orthotic/Prosthetic Devices or Brace: No Comments Mobility Comments STS with FWW Petr with cues for pushing from arms of the chair. She ambulated to the restroom ~10'CGA, required cues for safely getting on toilet. STS from toilet x2 Petr with FWW. She ambulated anotehr ~10' in the rom. She performs stairs x3 Petr with use of counter support and FARM RANCHER . Pt requested to use toilet again. Pt was left on the toilet, RN notified. Gait Assessment Gait Gait Assistance Required: Contact Guard Assist Distance (Feet) 20 Able to Maintain Weight Bearing Status No During Gait Assistive Devices Assistive Device Gait Belt,Front Wheeled Walker Orthotic/Prosthetic Devices or Brace: No Gait Deviations General Gait Pattern Decreased Stride Length, Decreased Feet Clearance, Flexed Trunk,Step-to Gait,Wide Based Gait Factors Limiting Gait Function Factors Limiting Gait Function Decreased Activity Tolerance, Difficulty Following Directions,Incoordination, Limited Range of Motion,Poor Balance,Poor Safety Awareness PT-Balance Assessment Sitting Balance and Reactions Static Sitting Balance Ability Good Dynamic Sitting Balance Ability Good Standing Balance and Reactions Static Standing Balance Ability Fair Dynamic Standing Balance Ability Fair Device Used FWW M5 PT-IP Objective Assessments Start: 11/29/23 08:48 Freq: NEEDED Status: Active Protocol: Document 11/29/23 11:23 MB (Rec: 11/29/23 11:53 MB [id number]) Orientation Orientation/Cognition Level of Alertness Confusional State Orientation Name,Birthday,Month Language Function Ability Hard of Hearing Safety Awareness Decreased Safety Awareness Memory Description Short Term Impaired,Liability Claims Representative Impaired Comments Minimal verbalizations Gross Range of Motion Upper Extremity ROM Impairments Defer to OT Lower Extremity ROM Impairments Pt does not follow ROM or MMT commands, appears to have some changes in left ankle with attempted ROM Strength Comments Strength Comments Pt does not follow MMT commands and she has functional weakness in her legs Coordination Assessment Gross Coordination Gross Coordination Impaired Sensation Assessment Comments Sensation Comments Pt does not follow sensory commands Muscle Tone Muscle Tone WNL Yes M6 PT-IP Treatment Start: 11/29/23 08:48 Freq: NEEDED Status: Active Protocol: Document 11/30/23 12:11 TS (Rec: 11/30/23 12:19 TS [id number]) Physical Therapy Treatment Education Education Provided Safety M7 PT-IP Assessment and Plan Start: 11/29/23 08:48 Freq: NEEDED Status: Active Protocol: Document 11/30/23 12:11 TS (Rec: 11/30/23 12:19 TS [id number]) PT Summary Assessment and Plan Potential Rehabilitation Potential Fair Summary Impairments ROM,Strength,Balance, Coordination,Cognition,Bed Mobility,Transfers,Gait, Activity Tolerance Progress Towards Goals Progressing Toward Goals Assessment Summary Isabella is making progress with her mobility. She is Petr for STS x3 with use of FWW. She ambulated ~20' in the room CGA with FWW. She performed stairs x3 Petr with FARM RANCHER and counter support. She has decreased safety awareness and some confusion. PT is recommending Home with 19/10 care and HHPT. Goals Bed Mobility Goal Standby Assistance Transfer Goal Contact Guard Assistance,Four Wheeled Walker Gait Goal Contact Guard Assistance,Four Wheel Walker Gait Distance 50 Other Goals Pt states there are 3 steps and two rails to enter home. If this is true and there is no flat entrance, will need to ascend and descend 3 steps with two rails and no more than CGA to allow safe home entrance. Days to Meet Goals 5 Frequency of Treatment Frequency Of Treatment Once a Day Treatment Plan Physical Therapy Treatment Plan Bed Mobility Training,Transfer Training,Gait Training, Therapeutic Exercise,Balance Retraining,Discharge Planning, Hot or Cold Pack,Neuromuscular Re-ed,Coordination Retraining ,Manual Therapy Weight Bearing Status Weight Bearing Status Weight Bear as Tolerated Recommendations To Nursing Amount of Assist Needed 1 Person Assist Discharge Recommendations PT Discharge Recommendations Home with 19/10 Assist Available,Home Health Transportation Needs at Discharge Private Vehicle
[2023-11-30] MEDS: MAGNESIUM CHLORIDE 64 MG TABLET 128 MG PO (11:28)
[2023-11-30] MEDS: INSULIN LISPRO 100 UNIT/ML 3ML VIAL SUBCUT ×2 (11:41→16:57)
--- NOTE | 2023-11-30 13:20 | CM.DPC ---
DCP Cont. Reviewed EMR and team rounds for status updates. Pt is being changed to a more broadcast antibiotic, urine cultures are pending for final antibiotic decision. Monitoring for any evolving d/c needs.
[2023-11-30] MEDS: LOSARTAN 25 MG TABLET PO (16:57)
--- NOTE | 2023-11-30 18:20 | PM.PN.1 ---
Subjective Subjective Interval history: Much more alert today. Repeat urine cultures without growth. Had switched to meropenem but has pulled out 4 IVs. Change to PO ciprofloxacin today. Exam Vital Signs (past 8 hours): - 11/30/23 13:00 11/30/23 16:00 11/30/23 16:57 Temperature 98.5 F Pulse Rate 66 Respiratory Rate 18 Blood Pressure 132/74 132/74 Pulse Oximetry 98 96 11/30/23 17:00 Temperature Pulse Rate Respiratory Rate Blood Pressure Pulse Oximetry 96 Oxygen Delivery Method Room Air Oxygen Flow Rate 0 Narrative Exam Narrative: Alert and oriented to her name. No apparent distress. Heart is regular rate and rhythm without murmur Lungs are clear to auscultation bilaterally Extremities have no ankle edema. Abdomen is soft, bowel sounds positive, nontender, no organomegaly. Objective Labs 11/30/23 05:40 11/30/23 05:40 Labs: Laboratory Results - last 24 hr 11/30/23 05:40 WBC 8.6 RBC 4.19 Hgb 12.1 Hct 37.1 MCV 88.6 MCH 28.9 MCHC 32.6 RDW 15.3 H Plt Count 225 Neut % (Auto) 61.4 Lymph % (Auto) 23.4 L [place] % (Auto) 8.9 Eos % (Auto) 5.7 H Baso % (Auto) 0.6 Neut # (Auto) 5300 Lymph # (Auto) 2000 [place] # (Auto) 800 Eos # (Auto) 500 H Baso # (Auto) 100 Sodium 135 L Potassium 4.7 Chloride 106 Carbon Dioxide 25 BUN 24 H Creatinine 1.13 H Estimated GFR 47 L BUN/Creatinine Ratio 21.2 Glucose 106 Calcium 9.9 Magnesium 1.6 PFSH Medical History Incomplete emptying of bladder Alzheimer disease Atrophic vaginitis Cognitive dysfunction Urge incontinence Secondhand smoke exposure Recurrent urinary tract infection History of asthma Lower extremity edema Hyperparathyroidism Swelling of left hand Obesity (BMI 30-39.9) Infection of fingernail of left hand Laceration of hand Shortness of breath Hypoxemia UTI (urinary tract infection) CVA, old, alterations of sensations Nocturnal hypoxemia Obstructive sleep apnea of adult (~08/2018) Excessive daytime sleepiness CVA (cerebral vascular accident) Fractures (~1962) Foot pain (~1962) Eczema (~2014) Hepatitis C (~1949) Cataract (~2014) Diabetes mellitus (~1996) Contusion of rib on right side Contusion of right shoulder Cellulitis Surgical History History of knee replacement Anesthesia Personal history of spine surgery (~2005) Personal history of spine surgery (~2003) Family History Brother No problems noted. Father No problems noted. Mother No problems noted. Daughter Diabetes mellitus Hypertension Thyroid condition Son Diabetes mellitus Social History household members: family Smoking Status: Never smoker alcohol intake: never caffeine: Yes Assessment & Plan Assessment & Plan narrative: 1. Sepsis secondary to acute cystitis with acute metabolic encephalopathy, DOUGLAS - had improved but worsened mentation / encephalopathy on 11/28 now improved again. UA positive again, slightly worse with more WBC. No leukocytosis on labs, electrolytes stable. Cr worsening the last few days as well but slightly better today as well. - continue diet - continue ceftriaxone 1g q24 hours for presumed acute cystitis, but repeat UA still positive. Broadened to meropenem for possible resistant organism but repeat cultures negative. Given difficulty of keeping IV, no definitive ESBL organism, will de-escalated to oral ciprofloxacin instead today. - follow up repeat urine cultures - ammonia <9. 2. HTN -resumed amlodipine and losartan. 3. Alzheimer's dementia - Consider PT / OT once more alert, continue home memantine. - daughters are able to care for patient at home during previous admission, normally patient is able to do most of her ADLs but requires some assistance. 4. Hyperparathyroidism - Calcium stable at 10.0 today, continue to follow with BMP. 5. DONOVAN - patient non-compliant with CPAP, will hold on Cpap therapy. Code: DNR/ DNI, okay with fluids, antibiotics and labs, surrogate is patient's daughter Malu (MARKO, other daughter is Talia) DVT: Lovenox daily Additional history obtained via discussions with bedside RN, patient's daughters, case management and pharmacist. These discussions contributed to the creation of the above assessment and plan. I have reviewed patient's presenting documentation, labs, and imaging personally. Dispo: If mentation remains improved, cultures negative, can discharge home tomorrow on oral cipro. Time-Based Coding :: [TOTAL MINUTES] spent with patient and on the chart (including review of chart, obtaining history, exam, reviewing outside data, placing orders, documenting exam and treatment plan, and counseling patient) on [DATE]. Quality VTE Deep Vein Thrombosis/Pulmonary Embolism Present on Admission: No
[2023-11-30] MEDS: MEMANTINE HCL 5 MG TABLET PO (20:47)
[2023-11-30] MEDS: CITALOPRAM 10 MG TABLET PO (20:47)
[2023-11-30] MEDS: CIPROFLOXACIN 250 MG TABLET 500 MG PO (21:01)
[2023-12-01 01:00] VITALS: BP 128/62; PULSE 67; RESP 18; O2SAT 96
[2023-12-01 05:00] VITALS: O2SAT 96
[2023-12-01] MEDS: LEVOTHYROXINE 50 MCG TABLET PO (06:10)
[2023-12-01 06:23] LABS: Add Manual Diff / Slide Review NO; Basophils Absolute Auto 0 /uL (0-100); Basophils Percent Auto 0.5 % (0-2); Eosinophils Absolute Auto 400 /uL (0-450); Eosinophils Percent Auto 4.9 % (2-4); Hemoglobin 12.3 g/dL (12.0-16.0); Lymphocytes Absolute Auto 2400 /uL (1100-4500); Lymphocytes Percent Auto 28.3 % (25-40); Mean Corpuscular HGB Conc 33.2 % (30-36); Mean Corpuscular Hemoglobin 29.3 PG (26-34); Mean Corpuscular Volume 88.3 fL (80-100); Monocytes Absolute Auto 600 /uL (0-900); Monocytes Percent Auto 7.2 % (3-14); Neutrophils Absolute Auto 5000 /uL (1500-7000); Neutrophils Percent Auto 59.1 % (50-75); Platelet Count 230 X10^3/uL (150-400); Red Blood Cell Count 4.19 X10^6/uL (4.0-5.2); Red Cell Distribution Width 14.5 % (11.6-14.8); White Blood Cell Count 8.4 X10^3/uL (4.5-11.0)
[2023-12-01 06:24] LABS: BUN Creatinine Ratio 23.5 (6-22); Blood Urea Nitrogen 27 mg/dL (7-17); Calcium 10.1 mg/dL (8.4-10.2); Carbon Dioxide 27 mmol/L (22-32); Chloride 103 mmol/L (98-107); Estimated Glomerular Filt Rate 46 mL/min (>60); Glucose 119 mg/dL (80-110); HEMOLYSIS < 15 (0-50); Magnesium 1.5 mg/dL (1.6-2.3); Potassium 4.3 mmol/L (3.4-5.1); Sodium 131 mmol/L (137-145)
[2023-12-01] MEDS: CIPROFLOXACIN 250 MG TABLET 500 MG PO (06:28)
[2023-12-01 08:00] VITALS: BP 147/78; PULSE 67; RESP 14; TEMP 37.2; O2SAT 97
[2023-12-01] MEDS: INSULIN GLARGINE 100 UNIT/ML 3ML PEN 8 UNIT SUBCUT (08:10)
[2023-12-01] MEDS: INSULIN LISPRO 100 UNIT/ML 3ML VIAL SUBCUT (08:10)
[2023-12-01 08:30] VITALS: O2SAT 97
[2023-12-01] MEDS: estradioL 1 MG TABLET PO (08:31)
[2023-12-01] MEDS: ATORVASTATIN 20 MG TABLET 5 MG PO (08:31)
[2023-12-01] MEDS: METFORMIN HCL 500 MG TABLET 1000 MG PO (08:31)
[2023-12-01] MEDS: AMLODIPINE 5 MG TABLET 10 MG PO (08:31)
[2023-12-01] MEDS: guaiFENesin ER 600 MG TAB PO (08:31)
[2023-12-01] MEDS: ENOXAPARIN 40 MG/0.4 ML SYRINGE SUBCUT (08:32)
[2023-12-01] MEDS: FUROSEMIDE 20 MG TABLET PO (08:32)
--- NOTE | 2023-12-01 10:11 | PT.IPTN ---
Current Diagnoses Sepsis, unspecified organism (11/26/23) Physical Therapy Treatment Note M2 PT-IP Current Condition Start: 11/29/23 08:48 Freq: NEEDED Status: Active Protocol: Document 11/29/23 11:23 MB (Rec: 11/29/23 11:53 MB [id number]) Physical Therapy Current Condition Current Condition Evaluation Date 11/29/23 Treatment Diagnosis AMS M3 PT-IP Subjective Start: 11/29/23 08:48 Freq: NEEDED Status: Active Protocol: Document 12/01/23 10:40 TS (Rec: 12/01/23 10:55 TS [id number]) Subjective Physical Therapy Visit Type Type Treatment Note Visit Start Time 10:11 Visit Stop Time 10:38 Number of GRAPHIC DESIGN PROFESSOR Visits 2 Physical Therapy Visit Comments Patient Comments Pt found resting in bed, pt has some confusion, she is agreeable to PT. M4 PT-IP Mobility and Gait Start: 11/29/23 08:48 Freq: NEEDED Status: Active Protocol: Document 12/01/23 10:40 TS (Rec: 12/01/23 10:55 TS [id number]) PT-Bed Mobility Assessment Supine to Sit Supine to Sit Standby Assistance,Contact Guard Assistance,Head of Bed Elevated,Bedrails Scooting Scooting to Edge of Bed Standby Assistance,Contact Guard Assistance PT-Transfer Assessment Sit to and From Stand Sit to and from Stand Moderate Assistance,1 Person Assistance Equipment Transfer Assistive Device Gait Belt,Front Wheeled Walker Orthotic/Prosthetic Devices or Brace: No Comments Mobility Comments Supine to sit SBA/CGA with HOB elevated, pt requires cues for use of handrails. She scoots to EOB SBA/CGA, requires extra time to complete task. STS with FWW ModA, pt has a posterior lean and requires cues for weight forward. She ambulated ~30'CGA /Petr with FWW, pt is unsteady . She sat in chair for rest break. STS from chair ModA with FWW. She ambulated ~20' CGA with FWW, continues to be unsteady. Pt was left in the chair, all needs met. Gait Assessment Gait Gait Assistance Required: Contact Guard Assist,Minimum Assistance Distance (Feet) 50 Able to Maintain Weight Bearing Status No During Gait Assistive Devices Assistive Device Gait Belt,Front Wheeled Walker Orthotic/Prosthetic Devices or Brace: No Gait Deviations General Gait Pattern Decreased Stride Length, Decreased Feet Clearance, Flexed Trunk,Step-to Gait,Wide Based Gait Factors Limiting Gait Function Factors Limiting Gait Function Decreased Activity Tolerance, Difficulty Following Directions,Incoordination, Limited Range of Motion,Poor Balance,Poor Safety Awareness Comments Gait Comments See mobility comments PT-Balance Assessment Sitting Balance and Reactions Static Sitting Balance Ability Good Dynamic Sitting Balance Ability Good Standing Balance and Reactions Static Standing Balance Ability Fair Dynamic Standing Balance Ability Fair Device Used FWW M5 PT-IP Objective Assessments Start: 11/29/23 08:48 Freq: NEEDED Status: Active Protocol: Document 11/29/23 11:23 MB (Rec: 11/29/23 11:53 MB [id number]) Orientation Orientation/Cognition Level of Alertness Confusional State Orientation Name,Birthday,Month Language Function Ability Hard of Hearing Safety Awareness Decreased Safety Awareness Memory Description Short Term Impaired,Senior Care Impaired Comments Minimal verbalizations Gross Range of Motion Upper Extremity ROM Impairments Defer to OT Lower Extremity ROM Impairments Pt does not follow ROM or MMT commands, appears to have some changes in left ankle with attempted ROM Strength Comments Strength Comments Pt does not follow MMT commands and she has functional weakness in her legs Coordination Assessment Gross Coordination Gross Coordination Impaired Sensation Assessment Comments Sensation Comments Pt does not follow sensory commands Muscle Tone Muscle Tone WNL Yes M6 PT-IP Treatment Start: 11/29/23 08:48 Freq: NEEDED Status: Active Protocol: Document 12/01/23 10:40 TS (Rec: 12/01/23 10:55 [id number]) Physical Therapy Treatment Education Education Provided Safety M7 PT-IP Assessment and Plan Start: 11/29/23 08:48 Freq: NEEDED Status: Active Protocol: Document 12/01/23 10:40 TS (Rec: 12/01/23 10:55 [id number]) PT Summary Assessment and Plan Potential Rehabilitation Potential Fair Summary Impairments ROM,Strength,Balance, Coordination,Cognition,Bed Mobility,Transfers,Gait, Activity Tolerance Progress Towards Goals Progressing Toward Goals Assessment Summary Isabella continues to make some progress with her mobility. She is SBA/CGA for bed mobility. She progressed her gait to ~50'CGA/Petr with FWW. She is unsteady with gait and requires some assistance for balance. PT is recommending home with 19/10 assist and HHPT . Goals Bed Mobility Goal Standby Assistance Transfer Goal Contact Guard Assistance,Four Wheeled Walker Gait Goal Contact Guard Assistance,Four Wheel Walker Gait Distance 50 Other Goals Pt states there are 3 steps and two rails to enter home. If this is true and there is no flat entrance, will need to ascend and descend 3 steps with two rails and no more than CGA to allow safe home entrance. Days to Meet Goals 5 Frequency of Treatment Frequency Of Treatment Once a Day Treatment Plan Physical Therapy Treatment Plan Bed Mobility Training,Transfer Training,Gait Training, Therapeutic Exercise,Balance Retraining,Discharge Planning, Hot or Cold Pack,Neuromuscular Re-ed,Coordination Retraining ,Manual Therapy Other Recommendations and Next Treatment ambulation using 4WW, stair Focus climbing Weight Bearing Status Weight Bearing Status Weight Bear as Tolerated Recommendations To Nursing Amount of Assist Needed 1 Person Assist Discharge Recommendations PT Discharge Recommendations Home with 19/10 Assist Available,Home Health Transportation Needs at Discharge Private Vehicle
--- NOTE | 2023-12-01 10:36 | P.HP_ITS ---
History of Present Illness History of Present Illness Date Patient Seen: 12/01/23 Time Patient Seen: 10:37 Chief complaint: Altered mental status Narrative: This is an 88 year old feamle with PMH of Alzheimer dementia, Obesity, DONOVAN, hyperparathyroidism, prior CVA, DM, HTN who presented with profound lethargy today in the setting of recent hallucinations a couple of days ago. Patient has incomplete empytying of her bladder, frequent UTIs. Was admitted previously due to sepsis due to UTI with similar presentation. No recent abdominal pain, nausea, vomiting per ER report but daughter did report foul smelling urine. Patient is more alert upon my evaluation, denied recent symptoms including dysuria or urinary frequency. In the ER vitals were okay, WBC was 8.6, Cr mildly elevated at 1.26, calcium 10.4 (around her baseline),. UA had many bacteria, minimal WBC and was contaminated with squamous cells. She was given ceftriaxone, urine culture did not reflex but was separately ordered, and admitted to medicine for further management of presumed sepsis due to acute cystitis. [facility] Medical History Incomplete emptying of bladder Alzheimer disease Atrophic vaginitis Cognitive dysfunction Urge incontinence Secondhand smoke exposure Recurrent urinary tract infection History of asthma Lower extremity edema Hyperparathyroidism Swelling of left hand Obesity (BMI 30-39.9) Infection of fingernail of left hand Laceration of hand Shortness of breath Hypoxemia UTI (urinary tract infection) CVA, old, alterations of sensations Nocturnal hypoxemia Obstructive sleep apnea of adult (~08/2018) Excessive daytime sleepiness CVA (cerebral vascular accident) Fractures (~1962) Foot pain (~1962) Eczema (~2013) Hepatitis C (~1948) Cataract (~2014) Diabetes mellitus (~1996) Contusion of rib on right side Contusion of right shoulder Cellulitis Surgical History History of knee replacement Anesthesia Personal history of spine surgery (~2005) Personal history of spine surgery (~2003) Family History Brother No problems noted. Father No problems noted. Mother No problems noted. Daughter Diabetes mellitus Hypertension Thyroid condition Son Diabetes mellitus Social History household members: family Smoking Status: Never smoker alcohol intake: never caffeine: Yes Meds Home Medications and Allergies Home Medications Medication Instructions Recorded Confirmed Type insulin syringe,safety needle 0.5 #500 ea 04/13/18 11/26/23 Rx mL 29 gauge x 1/2 (Assure ID Insulin Safety) miscellaneous medical supply #1 ea 03/02/19 11/26/23 Rx disabled parking permit #1 ea 02/09/20 11/26/23 Rx blood sugar diagnostic (Glucocard See Rx Instructions .Route 12/23/20 11/28/23 Rx Expression strips) .COMPLEX #100 ea pen needle, diabetic 31 gauge x See Rx Instructions .Route 11/21/21 11/28/23 Rx 5/16 (TRUEplus Pen Needle) .COMPLEX #100 ea blood-glucose meter,continuous #1 ea 02/13/22 11/26/23 Rx (Dexcom G6 Conference Services Director) blood-glucose sensor (Dexcom G6 #3 ea 02/13/22 11/26/23 Rx Sensor device) blood-glucose transmitter (Dexcom #1 ea 02/13/22 11/26/23 Rx G6 Transmitter device) cranberry extract 9 cap PO DAILY 06/22/23 11/28/23 History amlodipine 10 mg tablet 10 mg PO DAILY 10/17/23 11/28/23 History citalopram 10 mg tablet 10 mg PO BEDTIME 10/17/23 11/28/23 History estradiol 1 mg tablet 1 mg PO DAILY 10/17/23 11/28/23 History furosemide 20 mg tablet 20 mg PO DAILY 10/17/23 11/28/23 History levothyroxine 50 mcg tablet 50 mcg PO DAILY@0600 10/17/23 11/28/23 History losartan 25 mg tablet 25 mg PO QPM 10/17/23 11/28/23 History lovastatin 20 mg tablet 5 mg PO DAILY 10/17/23 11/28/23 History memantine 5 mg tablet 5 mg PO BEDTIME 10/17/23 11/28/23 History metformin 1,000 mg tablet 1,000 mg PO BID 10/17/23 11/28/23 History guaifenesin 600 mg tablet, 600 mg PO DAILY 10/18/23 11/28/23 History extended release 12 hr (Mucinex) loperamide 2 mg capsule (Imodium 2 mg PO QID PRN loose stool #60 10/29/23 11/28/23 Rx A-D) caps quetiapine 25 mg tablet (Seroquel) 25 mg PO BEDTIME #90 tabs 10/29/23 11/28/23 Rx insulin glargine 100 unit/mL (3 8 unit SUBCUT QAM 11/12/23 11/28/23 History mL) subcutaneous pen (Lantus Solostar U-100 Insulin) tirzepatide 5 mg/0.5 mL 5 mg SUBCUT QWEEK 11/28/23 11/28/23 History subcutaneous pen injector (Mounjaro) ciprofloxacin HCl 500 mg tablet 500 mg PO BID 5 days #10 tabs 12/01/23 Rx Allergies Allergy/AdvReac Type Severity Reaction Status Date / Time penicillin G [PENICILLIN G] Allergy Intermediate Hives Verified 11/25/23 11:09 Exam Vital Signs (past 8 hours): - 12/01/23 05:00 12/01/23 08:00 12/01/23 08:30 Temperature 98.9 F Pulse Rate 67 Respiratory Rate 14 Blood Pressure 147/78 H Pulse Oximetry 96 97 97 Oxygen Delivery Method Room Air Room Air Oxygen Delivery Method Room Air Oxygen Flow Rate 0 Objective Labs 12/01/23 05:40 12/01/23 05:40 Labs: Laboratory Results - last 24 hr 12/01/23 05:40 WBC 8.4 RBC 4.19 Hgb 12.3 Hct 37.0 MCV 88.3 MCH 29.3 MCHC 33.2 RDW 14.5 Plt Count 230 Neut % (Auto) 59.1 Lymph % (Auto) 28.3 [place] % (Auto) 7.2 Eos % (Auto) 4.9 H Baso % (Auto) 0.5 Neut # (Auto) 5000 Lymph # (Auto) 2400 [place] # (Auto) 600 Eos # (Auto) 400 Baso # (Auto) 0 Sodium 131 L Potassium 4.3 Chloride 103 Carbon Dioxide 27 BUN 27 H Creatinine 1.15 H Estimated GFR 46 L BUN/Creatinine Ratio 23.5 H Glucose 119 H Calcium 10.1 Magnesium 1.5 L Assessment & Plan Time-Based Coding :: [TOTAL MINUTES] spent with patient and on the chart (including review of chart, obtaining history, exam, reviewing outside data, placing orders, documenting exam and treatment plan, and counseling patient) on [DATE]. Quality VTE Deep Vein Thrombosis/Pulmonary Embolism Present on Admission: No
[2023-12-01] MEDS: MAGNESIUM CHLORIDE 64 MG TABLET 128 MG PO (10:44)
--- NOTE | 2023-12-01 10:49 | CM.DPC ---
DCP Cont. Reviewed EMR and team rounds for status updates. Pt has been medicallty cleared for d/c today. CM updated [facility] of d/c, will send d/c summary once available. Family will transport her home. No further DCP needs identified at this time.
--- NOTE | 2023-12-01 11:38 | PC.NURSE ---
Patient teaching done with patient and daughter. All questions and concerns addressed. Patient is aware of new antibx sent to pharm and directions on taking said medication. Patient is free of IV's and tele.
--- NOTE | 2023-12-01 12:01 | PC.NURSE ---
Day shift: Paperwork done by Mp Santos RN. Paperwork is signed and all questions answered. Left unit via WC at approx 1200. Family member is driving her home. She has no complaints today and is back to baseline. Worked with PT as well. Pt has all personal belongings.
--- NOTE | 2023-12-01 12:32 | PM.DS.1 ---
History of Present Illness History of Present Illness Date Patient Seen: 12/01/23 Time Patient Seen: 09:30 Chief complaint: Altered mental status Narrative: This is an 88 year old feamle with PMH of Alzheimer dementia, Obesity, DONOVAN, hyperparathyroidism, prior CVA, DM, HTN who presented with profound lethargy today in the setting of recent hallucinations a couple of days ago. Patient has incomplete empytying of her bladder, frequent UTIs. Was admitted previously due to sepsis due to UTI with similar presentation. No recent abdominal pain, nausea, vomiting per ER report but daughter did report foul smelling urine. Patient is more alert upon my evaluation, denied recent symptoms including dysuria or urinary frequency. In the ER vitals were okay, WBC was 8.6, Cr mildly elevated at 1.26, calcium 10.4 (around her baseline),. UA had many bacteria, minimal WBC and was contaminated with squamous cells. She was given ceftriaxone, urine culture did not reflex but was separately ordered, and admitted to medicine for further management of presumed sepsis due to acute cystitis. Discharge Providers Provider Date of admission: 11/26/23 13:42 Discharge Date: 12/01/23 Primary care physician: Keenan Stout MD Consults: 11/28/23 14:23 Consult to Home Health Routine Comment: Reason For Exam: Resumption of [facility] upon discharge 11/28/23 18:16 Consult to Occupational Therapy Evaluate & Treat Comment: Physician Instructions: Evaluate and treat Consult to Physical Therapy Evaluate & Treat Comment: Physician Instructions: Evaluate and Treat Discharge provider: Evan Pompa DO Summary Hospital Course Discharge Diagnosis: 1. Sepsis secondary to acute cystitis with acute metabolic encephalopathy, DOUGLAS 2. HTN 3. Alzheimer's dementia 4. Hyperparathyroidism 5. DONOVAN Hospital Course: This is an 88 year old female admitted with sepsis secondary to acute cystitis with acute metabolic encephalopathy and DOUGLAS on presentation. She initially improved with ceftriaxone, however a few days of ceftriaxone her creatinine worsened slightly and she became lethargic again. Antibiotics were broadened to a carbapenem and urine culture was repeated. UA was positive and urine culture did not grow any organisms unfortunately. She lost her IV on the day prior discharge. Given no growth on repeat urine culture, she was changed to ciprofloxacin with continued improvement after. She had returned to her baseline and was discharged home. She was discharged home with another ciprofloxacin for 5 days to complete treatment for complicated acute cystitis. No other changes to her home medications were recommended on discharge. Time Spent with Patient Time spent: Greater than 30 minutes Exam Vital Signs (past 8 hours): - 12/01/23 05:00 12/01/23 08:00 12/01/23 08:30 Temperature 98.9 F Pulse Rate 67 Respiratory Rate 14 Blood Pressure 147/78 H Pulse Oximetry 96 97 97 Oxygen Delivery Method Room Air Room Air Oxygen Delivery Method Room Air Oxygen Flow Rate 0 Narrative Exam Narrative: Alert and oriented to her name. No apparent distress. Heart is regular rate and rhythm without murmur Lungs are clear to auscultation bilaterally Extremities have no ankle edema. Abdomen is soft, bowel sounds positive, nontender, no organomegaly. Objective Labs 12/01/23 05:40 12/01/23 05:40 Labs: Laboratory Results - last 24 hr 12/01/23 05:40 WBC 8.4 RBC 4.19 Hgb 12.3 Hct 37.0 MCV 88.3 MCH 29.3 MCHC 33.2 RDW 14.5 Plt Count 230 Neut % (Auto) 59.1 Lymph % (Auto) 28.3 Mitchell % (Auto) 7.2 Eos % (Auto) 4.9 H Baso % (Auto) 0.5 Neut # (Auto) 5000 Lymph # (Auto) 2400 Mitchell # (Auto) 600 Eos # (Auto) 400 Baso # (Auto) 0 Sodium 131 L Potassium 4.3 Chloride 103 Carbon Dioxide 27 BUN 27 H Creatinine 1.15 H Estimated GFR 46 L BUN/Creatinine Ratio 23.5 H Glucose 119 H Calcium 10.1 Magnesium 1.5 L PFSH Medical History Incomplete emptying of bladder Alzheimer disease Atrophic vaginitis Cognitive dysfunction Urge incontinence Secondhand smoke exposure Recurrent urinary tract infection History of asthma Lower extremity edema Hyperparathyroidism Swelling of left hand Obesity (BMI 30-39.9) Infection of fingernail of left hand Laceration of hand Shortness of breath Hypoxemia UTI (urinary tract infection) CVA, old, alterations of sensations Nocturnal hypoxemia Obstructive sleep apnea of adult (~08/2018) Excessive daytime sleepiness CVA (cerebral vascular accident) Fractures (~1962) Foot pain (~1962) Eczema (~2013) Hepatitis C (~194) Cataract (~2014) Diabetes mellitus (~1996) Contusion of rib on right side Contusion of right shoulder Cellulitis Surgical History History of knee replacement Anesthesia Personal history of spine surgery (~2005) Personal history of spine surgery (~2003) Family History Brother No problems noted. Father No problems noted. Mother No problems noted. Daughter Diabetes mellitus Hypertension Thyroid condition Son Diabetes mellitus Social History household members: family Smoking Status: Never smoker alcohol intake: never caffeine: Yes Discharge Plan Discharge Plan Patient Disposition: Home Provider Discharge Comment: You were admitted to the hospital with a UTI and confusion. Improved with change of antibiotics. No other medication changes recommended on discharge, please complete full course of new antibiotic. Discharge orders & Medications Prescriptions: New ciprofloxacin HCl 500 mg tablet 500 mg PO BID 5 Days Qty: 10 0RF Continued (DME) miscellaneous medical supply Misc See Dose Instructions .Route .MEDSUPPLY Qty: 1 0RF Dose Instruction: Disabled Parking Permit Rx Instructions: Disabled Parking Permit Glucocard Expression Strip See Rx Instructions .ROUTE .COMPLEX Qty: 100 2RF Dose Instruction: USE TO CHECK BLOOD SUGAR FROM FINGER TWICE DAILY Rx Instructions: USE TO CHECK BLOOD SUGAR FROM FINGER TWICE DAILY pen needle, diabetic [TRUEplus Pen Needle] 31 gauge x 5/16 needle See Rx Instructions .ROUTE .COMPLEX Qty: 100 3RF Dose Instruction: USE FOR INSULIN INJECTIONS Rx Instructions: USE FOR INSULIN INJECTIONS (DME) Dexcom G6 And Drying Supervisor Cooking Casing Misc See Rx Instructions .Route Qty: 1 0RF Rx Instructions: As directed (DME) Dexcom G6 Transmitter Device See Rx Instructions .Route Qty: 1 0RF Rx Instructions: As directed (DME) Dexcom G6 Sensor Device See Rx Instructions .Route Qty: 3 0RF Rx Instructions: As directed loperamide [Imodium A-D] 2 mg capsule 2 mg PO QID PRN (Reason: loose stool) Qty: 60 1RF (DME) insulin syringe,safety needle [Assure ID Insulin Safety] 0.5 mL 29 gauge x 1/2 syringe See Dose Instructions .ROUTE .MEDSUPPLY Qty: 500 0RF Dose Instruction: As directed Rx Instructions: As directed (DME) disabled parking permit See Rx Instructions .ROUTE .MEDSUPPLY Qty: 1 0RF Rx Instructions: As directed. patient qualifies for disabled parking as per attached form. cranberry extract 9 cap PO DAILY quetiapine [Seroquel] 25 mg tablet 25 mg PO BEDTIME Qty: 90 3RF citalopram 10 mg tablet 10 mg PO BEDTIME estradiol 1 mg tablet 1 mg PO DAILY amlodipine 10 mg tablet 10 mg PO DAILY levothyroxine 50 mcg tablet 50 mcg PO DAILY@0600 losartan 25 mg tablet 25 mg PO QPM furosemide 20 mg tablet 20 mg PO DAILY lovastatin 20 mg tablet 5 mg PO DAILY memantine 5 mg tablet 5 mg PO BEDTIME metformin 1,000 mg tablet 1,000 mg PO BID guaifenesin [Mucinex] 600 mg Tablet Extended Release 12hr 600 mg PO DAILY insulin glargine [Lantus Solostar U-100 Insulin] 100 unit/mL (3 mL) insulin pen 8 unit SUBCUT QAM Mounjaro 5 mg/0.5 mL pen injector 5 mg SUBCUT QWEEK Follow up/Referrals: Keenan Stout MD [Primary Care Provider] - Diet/Activity/Treatments Diet: Diet as Tolerated, Regular and Carb-consistent/Diabetic Activity: As tolerated, no restrictions. Skin/Wound/Dressing Care Report to your healthcare provider any signs of infection, such as:: chills, fever Visit Report/Discharge Packet Instructions: DI for Urinary Tract Infection (UTI), How to Prevent Falls, DI for Acute Cystitis, DI for Muscle Weakness Stand Alone Forms: Patient Portal/API, Stroke Signs & Symptoms Discharge Data Primary Care Provider: Keenan Stout Quality VTE Deep Vein Thrombosis/Pulmonary Embolism Present on Admission: No
== END 2023-12-01 12:03 | disposition home health service (06) | DRG 871 ==
LOC: ED 13:13 → AC 13:43
PROVIDERS: Admitting Provider Internal Medicine; Emergency Provider Emergency Medicine; PCP Family Medicine; Referring Provider Emergency Medicine; Visit Provider Internal Medicine
DX: A41.9 Sepsis, unspecified organism (principal); G93.41 Metabolic encephalopathy; N30.00 Acute cystitis without hematuria; R39.0 Extravasation of urine; I10 Essential (primary) hypertension; G30.9 Alzheimer's disease, unspecified; F02.80 Dementia in other diseases classified elsewhere, unspecified severity, without behavioral disturbance, psychotic disturbance, mood disturbance, and anxiety; E21.3 Hyperparathyroidism, unspecified; G47.33 Obstructive sleep apnea (adult) (pediatric); E11.9 Type 2 diabetes mellitus without complications; E66.9 Obesity, unspecified; Z68.34 Body mass index [BMI] 34.0-34.9, adult; Z66 Do not resuscitate; Z79.4 Long term (current) use of insulin; Z79.84 Long term (current) use of oral hypoglycemic drugs; Z79.85 Long-term (current) use of injectable non-insulin antidiabetic drugs; Z86.73 Personal history of transient ischemic attack (TIA), and cerebral infarction without residual deficits
CPT/HCPCS: 36415; 71045; 80048; 80053; 80305; 81001; 82140; 82962; 83735; 85025; 87086; 93005; 96365; 96366; 97116; 97161; 97166; 97530; 97535; 99284; J0696; J1650; J1815; J2185; J3475

== ENCOUNTER → 2023-12-07 11:58 | Outpatient (CLI) | payer MEDICARE, SELFPAY ==
[2023-11-26 16:27] VITALS: BMI 34.7
[2023-12-07 15:19] LABS: Appearance Urine UA CLEAR; Bilirubin Urine UA NEGATIVE (NEGATIVE); Color Urine UA YELLOW; Glucose Urine UA NEGATIVE (Negative); Ketones Urine UA NEGATIVE (NEGATIVE); Leukocyte Esterase Urine UA NEGATIVE (NEGATIVE); Nitrite Urine UA NEGATIVE (Negative); Occult Blood Urine UA NEGATIVE (Negative); Protein Urine UA NEGATIVE (Negative); Specific Gravity Urine UA 1.015 (1.000-1.035); Urobilinogen Urine UA 0.2 E.U./dL (0.2)
[2023-12-07 15:59] LABS: pH Urine UA 5.5 (4.5-8.0)
[2023-12-07 16:00] LABS: Bacteria Urine None Seen; Culture Indicated Urine Cult Not Indicated; RBC Urine None Seen (0-5/HPF); Squamous Epithelial Cell Urine 0-1 /HPF (0-5/HPF); Urine Volume Low Vol <10mL (spun); WBC Urine None Seen (0-5/HPF)
== END ==
PROVIDERS: PCP Family Medicine; Visit Provider Urology
DX: N39.0 Urinary tract infection, site not specified (principal); R33.9 Retention of urine, unspecified; R41.82 Altered mental status, unspecified
CPT/HCPCS: 81001; 87086

== ENCOUNTER → 2023-12-23 10:38 | Outpatient (CLI) | payer MEDICARE, SELFPAY ==
[2023-11-26 16:27] VITALS: BMI 34.7
== END ==
PROVIDERS: PCP Family Medicine; Visit Provider Urology
DX: N39.0 Urinary tract infection, site not specified (principal); R33.9 Retention of urine, unspecified; Z87.440 Personal history of urinary (tract) infections; Z77.22 Contact with and (suspected) exposure to environmental tobacco smoke (acute) (chronic)
CPT/HCPCS: 51798; 81002; 87077; 87086; 87147; 99213

== ENCOUNTER → 2023-12-29 10:02 | Outpatient (CLI) | payer MEDICARE, SELFPAY ==
[2023-11-26 16:27] VITALS: BMI 34.7
== END ==
PROVIDERS: PCP Family Medicine; Visit Provider Urology
DX: Z87.440 Personal history of urinary (tract) infections (principal)
CPT/HCPCS: 87086

== ENCOUNTER → 2024-02-03 10:22 | Outpatient (CLI) | payer MEDICARE, SELFPAY ==
[2023-11-26 16:27] VITALS: BMI 34.7
[2024-02-03 11:40] LABS: Add Manual Diff / Slide Review NO; Basophils Absolute Auto 0 /uL (0-100); Basophils Percent Auto 0.5 % (0-2); Eosinophils Absolute Auto 400 /uL (0-450); Eosinophils Percent Auto 3.7 % (2-4); Hematocrit 43.5 % (36-46); Hemoglobin 14.1 g/dL (12.0-16.0); Lymphocytes Absolute Auto 2000 /uL (1100-4500); Lymphocytes Percent Auto 20.9 % (25-40); Mean Corpuscular HGB Conc 32.4 % (30-36); Mean Corpuscular Volume 89.3 fL (80-100); Monocytes Absolute Auto 800 /uL (0-900); Neutrophils Absolute Auto 6300 /uL (1500-7000); Neutrophils Percent Auto 66.9 % (50-75); Platelet Count 241 X10^3/uL (150-400); Red Blood Cell Count 4.87 X10^6/uL (4.0-5.2); Red Cell Distribution Width 15.6 % (11.6-14.8); White Blood Cell Count 9.5 X10^3/uL (4.5-11.0)
[2024-02-03 11:53] LABS: Hemoglobin A1C% w Est Avg Glu 7.2 % (4.0-6.0)
[2024-02-03 11:59] LABS: Alanine Aminotransferase 13 IU/L (<35); Albumin 4.2 g/dL (3.5-5.0); Albumin Globulin Ratio 1.5 (1.0-2.8); Alkaline Phosphatase 74 U/L (38-126); Aspartate Aminotransferase 16 IU/L (14-36); BUN Creatinine Ratio 25.7 (6-22); Bilirubin Total 0.5 mg/dL (0.2-1.3); Blood Urea Nitrogen 36 mg/dL (7-17); Carbon Dioxide 26 mmol/L (22-32); Chloride 100 mmol/L (98-107); Estimated Glomerular Filt Rate 37 mL/min (>60); Globulin 2.8 g/dL (1.7-4.1); Glucose 130 mg/dL (80-110); HEMOLYSIS < 15 (0-50); Potassium 4.5 mmol/L (3.4-5.1); Sodium 135 mmol/L (137-145)
[2024-02-03 12:32] LABS: TSH w/ Reflex to FT4 3.19 uIU/mL (0.47-4.68)
[2024-02-04 07:11] LABS: Calcium 10.8 mg/dL (8.7-10.3); Parathyroid Hormone, Intact 144 pg/mL (15-65)
== END ==
PROVIDERS: PCP Family Medicine; Referring Provider Family Medicine; Visit Provider Family Medicine
DX: E21.3 Hyperparathyroidism, unspecified (principal); E11.9 Type 2 diabetes mellitus without complications; I10 Essential (primary) hypertension; E78.2 Mixed hyperlipidemia; G47.33 Obstructive sleep apnea (adult) (pediatric); Z87.440 Personal history of urinary (tract) infections; G30.9 Alzheimer's disease, unspecified; F02.80 Dementia in other diseases classified elsewhere, unspecified severity, without behavioral disturbance, psychotic disturbance, mood disturbance, and anxiety
CPT/HCPCS: 36415; 80053; 82310; 83036; 83970; 84443; 85025

== ENCOUNTER → 2024-03-16 11:43 | Outpatient (CLI) | payer MEDICARE, SELFPAY ==
[2023-11-26 16:27] VITALS: BMI 34.7
== END ==
PROVIDERS: PCP Family Medicine; Visit Provider Urology
DX: R33.9 Retention of urine, unspecified (principal); Z87.440 Personal history of urinary (tract) infections
CPT/HCPCS: 87077; 87086; 87186

== ENCOUNTER → 2024-04-27 09:17 | Outpatient (CLI) | payer OTHER, SELFPAY ==
[2023-11-26 16:27] VITALS: BMI 34.7
[2024-04-27 10:22] LABS: Alanine Aminotransferase 20 IU/L (<35); Albumin 3.8 g/dL (3.5-5.0); Albumin Globulin Ratio 1.5 (1.0-2.8); Alkaline Phosphatase 71 U/L (38-126); Aspartate Aminotransferase 21 IU/L (14-36); BUN Creatinine Ratio 24.5 (6-22); Bilirubin Total 0.5 mg/dL (0.2-1.3); Blood Urea Nitrogen 35 mg/dL (7-17); Calcium 9.8 mg/dL (8.4-10.2); Carbon Dioxide 26 mmol/L (22-32); Chloride 105 mmol/L (98-107); Estimated Glomerular Filt Rate 36 mL/min (>60); Globulin 2.5 g/dL (1.7-4.1); Glucose 238 mg/dL (80-110); HEMOLYSIS < 15 (0-50); Potassium 4.8 mmol/L (3.4-5.1); Sodium 139 mmol/L (137-145); Total Protein 6.3 g/dL (6.3-8.2)
[2024-04-27 10:25] LABS: Hemoglobin A1C% w Est Avg Glu 6.9 % (4.0-6.0)
[2024-04-28 14:39] LABS: Calcium 9.9 mg/dL (8.7-10.3); Parathyroid Hormone, Intact 102 pg/mL (15-65)
== END ==
PROVIDERS: PCP Family Medicine; Referring Provider Family Medicine; Visit Provider Family Medicine
DX: E11.9 Type 2 diabetes mellitus without complications (principal); E78.2 Mixed hyperlipidemia; I10 Essential (primary) hypertension; G30.9 Alzheimer's disease, unspecified; F02.80 Dementia in other diseases classified elsewhere, unspecified severity, without behavioral disturbance, psychotic disturbance, mood disturbance, and anxiety
CPT/HCPCS: 36415; 80053; 82310; 83036; 83970

== ENCOUNTER → 2024-05-05 13:55 | Outpatient (CLI) | payer OTHER, SELFPAY ==
[2023-11-26 16:27] VITALS: BMI 34.7
[2024-05-05 14:14] LABS: Appearance Urine UA SL CLOUDY; Bilirubin Urine UA NEGATIVE (NEGATIVE); Color Urine UA YELLOW; Glucose Urine UA NEGATIVE (Negative); Ketones Urine UA NEGATIVE (NEGATIVE); Leukocyte Esterase Urine UA NEGATIVE (NEGATIVE); Nitrite Urine UA NEGATIVE (Negative); Occult Blood Urine UA NEGATIVE (Negative); Protein Urine UA NEGATIVE (Negative); Specific Gravity Urine UA 1.015 (1.000-1.035); Urobilinogen Urine UA 0.2 E.U./dL (0.2)
[2024-05-05 14:23] LABS: pH Urine UA 6.5 (4.5-8.0)
[2024-05-05 14:36] LABS: Creatinine Urine Random 52.24 mg/dL
[2024-05-05 14:37] LABS: Bacteria Urine Many (>30); RBC Urine None Seen (0-5/HPF); Squamous Epithelial Cell Urine 1-5 /HPF (0-5/HPF); Urine Volume 10mL (spun); WBC Urine 1-5/HPF (0-5/HPF)
[2024-05-05 14:38] LABS: Culture Indicated Urine Cult Not Indicated
[2024-05-05 14:47] LABS: Microalbumin Urine Random < 0.6 mg/dL (0-1.6)
== END ==
PROVIDERS: PCP Family Medicine; Referring Provider Family Medicine; Visit Provider Family Medicine
DX: R41.82 Altered mental status, unspecified (principal); E11.9 Type 2 diabetes mellitus without complications; Z87.440 Personal history of urinary (tract) infections
CPT/HCPCS: 81001; 82043; 82570

== ENCOUNTER 2024-05-08 13:57 | Emergency (ER) | payer OTHER, SELFPAY ==
[2023-11-26 16:27] VITALS: BMI 34.7
[2024-05-08 14:49] VITALS: BP 132/65; PULSE 98; RESP 20; TEMP 36.8; O2SAT 97; BMI 28.3
[2024-05-08 18:27] LABS: Appearance Urine UA CLOUDY; Bilirubin Urine UA NEGATIVE (NEGATIVE); Color Urine UA YELLOW; Glucose Urine UA NEGATIVE (Negative); Ketones Urine UA NEGATIVE (NEGATIVE); Leukocyte Esterase Urine UA TRACE (NEGATIVE); Nitrite Urine UA POSITIVE (Negative); Occult Blood Urine UA NEGATIVE (Negative); Protein Urine UA NEGATIVE (Negative); Urobilinogen Urine UA 0.2 E.U./dL (0.2)
[2024-05-08 18:35] VITALS: RESP 16
[2024-05-08 18:47] LABS: Bacteria Urine Many (>30); Culture Indicated Urine Specimen Cultured; RBC Urine 0-1/HPF (0-5/HPF); Squamous Epithelial Cell Urine 0-1 /HPF (0-5/HPF); Urine Volume 10mL (spun); WBC Urine 5-10/HPF (0-5/HPF)
--- NOTE | 2024-05-08 19:28 | ED.FEMALEGU ---
HPI - Female Genitourinary <Alice Mckinley PA-C - Last Filed: 05/09/24 19:45> General Chief complaint: Urogenital-Female Stated complaint: needs cath, urinating issues Time Seen by Provider: 05/08/24 18:25 Source: patient and family Mode of arrival: Ambulatory History of Present Illness HPI Narrative: 88-year-old female with past medical history Alzheimer disease, frequent UTIs, hyperlipidemia, hypertension, type 2 diabetes brought into the ED by her daughter for some mental status changes. According to daughter, patient seems more disoriented and confused. Patient's daughter states that this is always accompanied by a UTI. Patient usually does not have other UTI symptoms such as dysuria. No fever, chills, nausea, vomiting, abdominal pain. Patient is followed by urologist Dr. Pereira. Related Data Home Medications Medication Instructions Recorded Confirmed cranberry extract 9 cap PO DAILY 06/22/23 05/06/24 memantine 5 mg tablet 5 mg PO BEDTIME 10/17/23 05/06/24 guaifenesin 600 mg tablet, 600 mg PO BID 12/02/23 05/06/24 extended release 12 hr (Mucinex) cinacalcet 30 mg tablet mg PO DAILY 05/06/24 05/06/24 Previous Rx's Medication Instructions Recorded insulin syringe,safety needle 0.5 #500 ea 04/13/18 mL 29 gauge x 1/2 (Assure ID Insulin Safety) miscellaneous medical supply #1 ea 03/02/19 disabled parking permit #1 ea 02/09/20 blood sugar diagnostic (Glucocard See Rx Instructions .Route 12/23/20 Expression strips) .COMPLEX #100 ea pen needle, diabetic 31 gauge x See Rx Instructions .Route 11/21/2108/11 (TRUEplus Pen Needle) .COMPLEX #100 ea blood-glucose meter,continuous #1 ea 02/13/22 (Dexcom G6 Orthotic And Prosthetic Technician) blood-glucose sensor (Dexcom G6 #3 ea 02/13/22 Sensor device) blood-glucose transmitter (Dexcom #1 ea 02/13/22 G6 Transmitter device) nitrofurantoin macrocrystal 50 mg 50 mg PO BEDTIME #90 caps 12/09/23 capsule metformin 1,000 mg tablet 1,000 mg PO BID #180 tabs 02/03/24 loperamide 2 mg capsule (Imodium 2 mg PO QID PRN loose stool #60 03/01/24 A-D) caps furosemide 20 mg tablet 20 mg PO DAILY PRN edema #90 tabs 04/20/24 levothyroxine 50 mcg tablet 50 mcg PO DAILY #90 tabs 04/27/24 losartan 50 mg tablet 50 mg PO DAILY #90 tabs 04/28/24 tirzepatide 7.5 mg/0.5 mL 7.5 mg (0.5 mL) SUBCUT QWEEK #2 mL 04/28/24 subcutaneous pen injector (Chica) cefdinir 300 mg capsule 300 mg PO Q12H 10 days #20 caps 05/08/24 Allergies Allergy/AdvReac Type Severity Reaction Status Date / Time penicillin G [PENICILLIN G] Allergy Intermediate Hives Verified 05/06/24 12:43 Review of Systems <Alice Mckinley PA-C - Last Filed: 05/09/24 19:45> Review of Systems Narrative: ROS pwe HPI, obtained from patient's daughter due to patient's dementia and confusion ROS Unobtainable: Unobtainable due to mental condition Patient History <Alice Mckinley PA-C - Last Filed: 05/09/24 19:45> Medical History History of urinary tract infection Incomplete emptying of bladder Alzheimer disease Atrophic vaginitis Cognitive dysfunction Urge incontinence Secondhand smoke exposure Recurrent urinary tract infection History of asthma Lower extremity edema Hyperparathyroidism Swelling of left hand Obesity (BMI 30-39.9) Infection of fingernail of left hand Laceration of hand Shortness of breath Hypoxemia UTI (urinary tract infection) CVA, old, alterations of sensations Nocturnal hypoxemia Obstructive sleep apnea of adult (~08/2018) Excessive daytime sleepiness CVA (cerebral vascular accident) Fractures (~1962) Foot pain (~1962) Eczema (~2013) Hepatitis C (~1948) Cataract (~2014) Diabetes mellitus (~1996) Contusion of rib on right side Contusion of right shoulder Cellulitis Surgical History History of knee replacement Anesthesia Personal history of spine surgery (~2005) Personal history of spine surgery (~2003) Family History Brother No problems noted. Father No problems noted. Mother No problems noted. Daughter Diabetes mellitus Hypertension Thyroid condition Son Diabetes mellitus Exam <Alice Mckinley PA-C - Last Filed: 05/09/24 19:45> Narrative Exam Narrative: Const General:?cooperative, healthy appearing and comfortable [facility] Head:?normal to inspection Ears:?hearing grossly normal bilaterally Nose:?external nose normal Face and sinus:?normal facial exam and sinuses nontender Mouth:?oral mucosae normal Throat:?posterior oropharynx normal Eyes General:?appearance normal, both eyes and all related structures Neck Neck:?normal visual inspection and no lymphadenopathy noted Resp Effort & Inspection:?normal respiratory effort Auscultation:?clear to auscultation bilaterally Cardio Rate:?regular rate Rhythm:?regular rhythm Neuro General:?patient alert, patient awake and patient oriented x3 Initial Vital Signs Initial Vital Signs: Vital Signs Temperature 98.2 F 05/08/24 14:49 Pulse Rate 98 H 05/08/24 14:49 Respiratory Rate 20 05/08/24 14:49 Blood Pressure 132/65 05/08/24 14:49 Pulse Oximetry 97 05/08/24 14:49 Oxygen Delivery Method Room Air 05/08/24 14:49 <DO Robbie Naqvi Last Filed: 05/09/24 21:48> Initial Vital Signs Initial Vital Signs: Vital Signs Temperature 98.2 F 05/08/24 14:49 Pulse Rate 98 H 05/08/24 14:49 Respiratory Rate 20 05/08/24 14:49 Blood Pressure 132/65 05/08/24 14:49 Pulse Oximetry 97 05/08/24 14:49 Oxygen Delivery Method Room Air 05/08/24 14:49 Course <Alice Mckinley PA-C - Last Filed: 05/09/24 19:45> Orders Ordered: Discontinued Medications Cefdinir (Cefdinir 300 Mg Capsule) 300 mg PO NOW ONE Stop: 05/08/24 19:30 Last Admin: 05/08/24 19:35 Dose: 300 mg Documented By: JOSEFA Vital Signs Vital signs: Vital Signs - 8 hr 05/08/24 14:49 05/08/24 18:35 Temperature 98.2 F Pulse Rate 98 H Respiratory Rate 20 16 Blood Pressure 132/65 Pulse Oximetry 97 Oxygen Delivery Method Room Air <DO Robbie Naqvi Filed: 05/09/24 21:48> Orders Ordered: Discontinued Medications Cefdinir (Cefdinir 300 Mg Capsule) 300 mg PO NOW ONE Stop: 05/08/24 19:30 Last Admin: 05/08/24 19:35 Dose: 300 mg Documented By: JOSEFA Vital Signs Vital signs: Vital Signs - 8 hr 05/08/24 14:49 05/08/24 18:35 Temperature 98.2 F Pulse Rate 98 H Respiratory Rate 20 16 Blood Pressure 132/65 Pulse Oximetry 97 Oxygen Delivery Method Room Air MDM - Female Genitourinary <Alice Mckinley PA-C - Last Filed: 05/09/24 19:45> Lab Data Labs: Lab Results 05/08/24 Range/Units 18:12 Urine Color Yellow Urine Appearance Cloudy Urine pH 6.0 (4.5-8.0) Ur Specific [place] 1.010 (1.000-1.035) Urine Protein Negative (Negative) Urine Glucose (UA) Negative (Negative) g/dL Urine Ketones Negative (NEGATIVE) Urine Occult Blood Negative (Negative) Urine Nitrate Positive H (Negative) Urine Bilirubin Negative (NEGATIVE) Urine Urobilinogen 0.2 (0.2) E.U./dL Ur Leukocyte Esterase Trace H (NEGATIVE) Urine RBC 0-1/hpf (0-5/HPF) Urine WBC 5-10/hpf H (0-5/HPF) Ur Squamous Epith Cells 0-1 /hpf (0-5/HPF) Urine Bacteria Many (>30) H (None) Ur Culture Indicated? Specimen cultured Vol Urine Centrifuged 10ml (spun) MDM Narrative Medical decision making narrative: 88-year-old female with past medical history Alzheimer disease, frequent UTIs, hyperlipidemia, hypertension, type 2 diabetes brought into the ED by her daughter for some mental status changes. Urine positive for nitrates, leukocyte esterase, WBC. Prior culture shows E coli resistant to most p.o. medications. Patient is also allergic to several medications. Will trial cefdinir. Urine will be sent out for culture as well. ED return precautions were discussed with patient and patient's daughter. They verbalized understanding. Medical records reviewed: Yes <Aminata Kebede DO - Last Filed: 05/09/24 21:48> Lab Data Labs: Lab Results 05/08/24 Range/Units 18:12 Urine Color Yellow Urine Appearance Cloudy Urine pH 6.0 (4.5-8.0) Ur Specific [place] 1.010 (1.000-1.035) Urine Protein Negative (Negative) Urine Glucose (UA) Negative (Negative) g/dL Urine Ketones Negative (NEGATIVE) Urine Occult Blood Negative (Negative) Urine Nitrate Positive H (Negative) Urine Bilirubin Negative (NEGATIVE) Urine Urobilinogen 0.2 (0.2) E.U./dL Ur Leukocyte Esterase Trace H (NEGATIVE) Urine RBC 0-1/hpf (0-5/HPF) Urine WBC 5-10/hpf H (0-5/HPF) Ur Squamous Epith Cells 0-1 /hpf (0-5/HPF) Urine Bacteria Many (>30) H (None) Ur Culture Indicated? Specimen cultured Vol Urine Centrifuged 10ml (spun) Discharge Plan Departure Patient Disposition: Home Clinical Impression: UTI (urinary tract infection) Qualifiers: Urinary tract infection type: acute cystitis Hematuria presence: without hematuria Qualified Code(s): N30.00 - Acute cystitis without hematuria Instructions: DI for Urinary Tract Infection (UTI) Activity Restrictions/Additional Instructions: You were evaluated in the ED today for symptoms of a urinary tract infection. Your urine does show a urinary tract infection for which you are being prescribed antibiotics. Please take the antibiotics as prescribed. We will send the sample for culture and let you know if a change of antibiotics is needed. Please follow-up with your PCP/urology as soon as possible. Return to the ED if you have worsening symptoms. Prescriptions: New cefdinir 300 mg capsule 300 mg PO Q12H 10 Days Qty: 20 0RF No Action cinacalcet 30 mg tablet PO DAILY (DME) miscellaneous medical supply Misc See Dose Instructions .Route .MEDSUPPLY Qty: 1 0RF Dose Instruction: Disabled Parking Permit Rx Instructions: Disabled Parking Permit Glucocard Expression Strip See Rx Instructions .ROUTE .COMPLEX Qty: 100 2RF Dose Instruction: USE TO CHECK BLOOD SUGAR FROM FINGER TWICE DAILY Rx Instructions: USE TO CHECK BLOOD SUGAR FROM FINGER TWICE DAILY pen needle, diabetic [TRUEplus Pen Needle] 31 gauge x 5/16 needle See Rx Instructions .ROUTE .COMPLEX Qty: 100 3RF Dose Instruction: USE FOR INSULIN INJECTIONS Rx Instructions: USE FOR INSULIN INJECTIONS (DME) Dexcom G6 Orthotic And Prosthetic Technician Misc See Rx Instructions .Route Qty: 1 0RF Rx Instructions: As directed (DME) Dexcom G6 Transmitter Device See Rx Instructions .Route Qty: 1 0RF Rx Instructions: As directed (DME) Dexcom G6 Sensor Device See Rx Instructions .Route Qty: 3 0RF Rx Instructions: As directed guaifenesin [Mucinex] 600 mg tablet extended release 12hr 600 mg PO BID loperamide [Imodium A-D] 2 mg capsule 2 mg PO QID PRN (Reason: loose stool) Qty: 60 1RF furosemide 20 mg tablet 20 mg PO DAILY PRN (Reason: edema) Qty: 90 1RF Mounjaro 7.5 mg/0.5 mL pen injector 7.5 mg SUBCUT QWEEK Qty: 2 3RF losartan 50 mg tablet 50 mg PO DAILY Qty: 90 2RF (DME) insulin syringe,safety needle [Assure ID Insulin Safety] 0.5 mL 29 gauge x 1/2 syringe See Dose Instructions .ROUTE .MEDSUPPLY Qty: 500 0RF Dose Instruction: As directed Rx Instructions: As directed nitrofurantoin macrocrystal 50 mg capsule 50 mg PO BEDTIME Qty: 90 3RF Rx Instructions: must administer with a meal/food metformin 1,000 mg tablet 1,000 mg PO BID Qty: 180 3RF levothyroxine 50 mcg tablet 50 mcg PO DAILY Qty: 90 3RF (DME) disabled parking permit See Rx Instructions .ROUTE .MEDSUPPLY Qty: 1 0RF Rx Instructions: As directed. patient qualifies for disabled parking as per attached form. cranberry extract 9 cap PO DAILY memantine 5 mg tablet 5 mg PO BEDTIME Referrals: Keenan Stout MD [Primary Care Provider] - Stand Alone Forms: Patient Portal/API/Survey ED Sign-out <Aminata Kebede DO - Last Filed: 05/09/24 21:48> Cosign ED Attending Cosignature Attestation: I was available for consultation.
[2024-05-08 19:35] VITALS: BP 160/74; PULSE 94; RESP 20; O2SAT 97
[2024-05-08] MEDS: CEFDINIR 300 MG CAPSULE PO (19:35)
== END 2024-05-08 19:44 | disposition home or self-care (01) ==
PROVIDERS: Emergency Provider Student in an Organized Health Care Education/Training Program; PCP Family Medicine
DX: N30.00 Acute cystitis without hematuria (principal); B96.1 Klebsiella pneumoniae [K. pneumoniae] as the cause of diseases classified elsewhere; G30.9 Alzheimer's disease, unspecified; F02.80 Dementia in other diseases classified elsewhere, unspecified severity, without behavioral disturbance, psychotic disturbance, mood disturbance, and anxiety; E11.9 Type 2 diabetes mellitus without complications; I10 Essential (primary) hypertension; E78.5 Hyperlipidemia, unspecified; Z79.85 Long-term (current) use of injectable non-insulin antidiabetic drugs; Z87.440 Personal history of urinary (tract) infections
CPT/HCPCS: 51701; 81001; 87077; 87086; 87186; 99283

== ENCOUNTER → 2024-05-12 07:49 | Outpatient (CLI) | payer OTHER, SELFPAY ==
[2023-11-26 16:27] VITALS: BMI 34.7
[2024-05-12 08:47] LABS: Add Manual Diff / Slide Review NO; Basophils Absolute Auto 100 /uL (0-100); Basophils Percent Auto 0.7 % (0-2); Eosinophils Absolute Auto 300 /uL (0-450); Eosinophils Percent Auto 3.3 % (2-4); Hematocrit 42.5 % (36-46); Hemoglobin 13.9 g/dL (12.0-16.0); Lymphocytes Absolute Auto 2100 /uL (1100-4500); Lymphocytes Percent Auto 21.6 % (25-40); Mean Corpuscular HGB Conc 32.7 % (30-36); Mean Corpuscular Hemoglobin 29.5 PG (26-34); Mean Corpuscular Volume 90.1 fL (80-100); Monocytes Absolute Auto 900 /uL (0-900); Monocytes Percent Auto 9.2 % (3-14); Neutrophils Absolute Auto 6400 /uL (1500-7000); Neutrophils Percent Auto 65.2 % (50-75); Platelet Count 290 X10^3/uL (150-400); Red Blood Cell Count 4.72 X10^6/uL (4.0-5.2); Red Cell Distribution Width 15.3 % (11.6-14.8); White Blood Cell Count 9.8 X10^3/uL (4.5-11.0)
[2024-05-12 09:06] LABS: Alanine Aminotransferase 16 IU/L (<35); Albumin 3.9 g/dL (3.5-5.0); Albumin Globulin Ratio 1.5 (1.0-2.8); Alkaline Phosphatase 79 U/L (38-126); Aspartate Aminotransferase 21 IU/L (14-36); BUN Creatinine Ratio 24.2 (6-22); Bilirubin Total 0.3 mg/dL (0.2-1.3); Blood Urea Nitrogen 31 mg/dL (7-17); Calcium 9.7 mg/dL (8.4-10.2); Carbon Dioxide 25 mmol/L (22-32); Chloride 101 mmol/L (98-107); Estimated Glomerular Filt Rate 41 mL/min (>60); Globulin 2.6 g/dL (1.7-4.1); Glucose 178 mg/dL (80-110); HEMOLYSIS 18 (0-50); Potassium 4.9 mmol/L (3.4-5.1); Sodium 135 mmol/L (137-145); Total Protein 6.5 g/dL (6.3-8.2)
== END ==
PROVIDERS: PCP Family Medicine; Referring Provider Family Medicine; Visit Provider Family Medicine
DX: N30.00 Acute cystitis without hematuria (principal); R41.82 Altered mental status, unspecified
CPT/HCPCS: 36415; 80053; 85025

== ENCOUNTER → 2024-05-18 07:49 | Outpatient (CLI) | payer OTHER, SELFPAY ==
[2023-11-26 16:27] VITALS: BMI 34.7
[2024-05-18 08:18] LABS: Appearance Urine UA CLEAR; Bilirubin Urine UA NEGATIVE (NEGATIVE); Color Urine UA YELLOW; Glucose Urine UA NEGATIVE (Negative); Ketones Urine UA NEGATIVE (NEGATIVE); Leukocyte Esterase Urine UA NEGATIVE (NEGATIVE); Nitrite Urine UA NEGATIVE (Negative); Occult Blood Urine UA NEGATIVE (Negative); Protein Urine UA NEGATIVE (Negative); Specific Gravity Urine UA 1.015 (1.000-1.035); Urobilinogen Urine UA 0.2 E.U./dL (0.2)
[2024-05-18 08:20] LABS: Urine Volume 10mL (spun); pH Urine UA 5.5 (4.5-8.0)
[2024-05-18 08:27] LABS: Bacteria Urine None Seen; Culture Indicated Urine Cult Not Indicated; RBC Urine None Seen (0-5/HPF); Squamous Epithelial Cell Urine None Seen (0-5/HPF); WBC Urine None Seen (0-5/HPF)
== END ==
PROVIDERS: PCP Family Medicine; Referring Provider Family Medicine; Visit Provider Family Medicine
DX: N39.0 Urinary tract infection, site not specified (principal)
CPT/HCPCS: 81001

== ENCOUNTER → 2024-05-30 10:18 | Outpatient (CLI) | payer OTHER, SELFPAY ==
[2023-11-26 16:27] VITALS: BMI 34.7
[2024-05-30 11:32] LABS: Appearance Urine UA SL CLOUDY; Bilirubin Urine UA NEGATIVE (NEGATIVE); Color Urine UA YELLOW; Glucose Urine UA NEGATIVE (Negative); Ketones Urine UA NEGATIVE (NEGATIVE); Leukocyte Esterase Urine UA 3+ (NEGATIVE); Nitrite Urine UA POSITIVE (Negative); Occult Blood Urine UA TRACE-INTACT (Negative); Protein Urine UA NEGATIVE (Negative); Urobilinogen Urine UA 0.2 E.U./dL (0.2); pH Urine UA 7.5 (4.5-8.0)
[2024-05-30 11:41] LABS: Amorphous Sediment Urine 1+; Bacteria Urine Many (>30); Culture Indicated Urine Specimen Cultured; RBC Urine None Seen (0-5/HPF); Squamous Epithelial Cell Urine 5-10 /HPF (0-5/HPF); Urine Volume 10mL (spun); WBC Urine 30-100/HPF (0-5/HPF)
== END ==
PROVIDERS: PCP Family Medicine; Referring Provider Family Medicine; Visit Provider Family Medicine
DX: Z87.440 Personal history of urinary (tract) infections (principal); R41.82 Altered mental status, unspecified
CPT/HCPCS: 81001; 87077; 87086; 87186

== ENCOUNTER → 2024-06-06 10:34 | Outpatient (CLI) | payer OTHER, SELFPAY ==
[2023-11-26 16:27] VITALS: BMI 34.7
== END ==
PROVIDERS: PCP Family Medicine; Visit Provider Registered Nurse Diabetes Educator
DX: N39.0 Urinary tract infection, site not specified (principal)
CPT/HCPCS: 87077; 87086

== ENCOUNTER 2024-07-08 18:12 | Emergency (ER) | payer OTHER, SELFPAY ==
[2023-11-26 16:27] VITALS: BMI 34.7
[2024-07-08] VITALS (13 sets, daily range): BP systolic 93–125; BP diastolic 50–62; PULSE 76–95; RESP 14–21; TEMP 36.1; O2SAT 94–99; BMI 34.7
--- NOTE | 2024-07-08 18:18 | ED_ITS ---
HPI - General Adult General Chief complaint: Neuro Symptoms/Deficit Stated complaint: AMS Time Seen by Provider: 07/08/24 18:18 History of Present Illness HPI narrative: 88-year-old woman who lives with her daughter at home, Alzheimer disease, recurrent urinary tract infection that have caused acute mental status changes previously, diabetes, prior stroke he is seeing signs more confused with a bit less energy today. Her daughter was concerned with the change and 911 was called to bring her in for further evaluation. Patient has no immediate complaints, she is aware that she is in the hospital isn't quite sure why she is here. Related Data Home Medications Medication Instructions Recorded Confirmed cranberry extract 9 cap PO DAILY 06/22/23 06/27/24 guaifenesin 600 mg tablet, 600 mg PO BID 12/02/23 06/27/24 extended release 12 hr (Mucinex) cinacalcet 30 mg tablet mg PO DAILY 05/06/24 06/27/24 Previous Rx's Medication Instructions Recorded disabled parking permit #1 ea 02/09/20 blood sugar diagnostic (Glucocard See Rx Instructions .Route 12/23/20 Expression strips) .COMPLEX #100 ea blood-glucose meter,continuous #1 ea 02/13/22 (Dexcom G6 Inspector Bicycle) blood-glucose sensor (Dexcom G6 #3 ea 02/13/22 Sensor device) blood-glucose transmitter (Dexcom #1 ea 02/13/22 G6 Transmitter device) metformin 1,000 mg tablet 1,000 mg PO BID #180 tabs 02/03/24 loperamide 2 mg capsule (Imodium 2 mg PO QID PRN loose stool #60 03/01/24 A-D) caps furosemide 20 mg tablet 20 mg PO DAILY PRN edema #90 tabs 04/20/24 levothyroxine 50 mcg tablet 50 mcg PO DAILY #90 tabs 04/27/24 losartan 50 mg tablet 50 mg PO DAILY #90 tabs 04/28/24 tirzepatide 7.5 mg/0.5 mL 7.5 mg (0.5 mL) SUBCUT QWEEK #2 mL 04/28/24 subcutaneous pen injector (Chica) memantine 10 mg tablet 20 mg (2 x 10 mg) PO QPM #180 tabs 05/16/24 levofloxacin 500 mg tablet 500 mg PO DAILY #7 tabs 07/08/24 Allergies Allergy/AdvReac Type Severity Reaction Status Date / Time penicillin G [PENICILLIN G] Allergy Intermediate Hives Verified 07/08/24 18:19 Review of Systems Review of Systems ROS Unobtainable: Unobtainable due to mental condition Patient History Medical History (Updated 07/08/24 @ 20:27 by Mariangel Erickson MD) Acute metabolic encephalopathy History of urinary tract infection Incomplete emptying of bladder Alzheimer disease Atrophic vaginitis Cognitive dysfunction Urge incontinence Secondhand smoke exposure Recurrent urinary tract infection History of asthma Lower extremity edema Hyperparathyroidism Swelling of left hand Obesity (BMI 30-39.9) Infection of fingernail of left hand Laceration of hand Shortness of breath Hypoxemia UTI (urinary tract infection) CVA, old, alterations of sensations Nocturnal hypoxemia Obstructive sleep apnea of adult (~08/2018) Excessive daytime sleepiness CVA (cerebral vascular accident) Fractures (~1962) Foot pain (~1962) Eczema (~2013) Hepatitis C (~1948) Cataract (~2014) Diabetes mellitus (~1996) Contusion of rib on right side Contusion of right shoulder Cellulitis Surgical History History of knee replacement Anesthesia Personal history of spine surgery (~2005) Personal history of spine surgery (~2003) Family History Brother No problems noted. Father No problems noted. Mother No problems noted. Daughter Diabetes mellitus Hypertension Thyroid condition Son Diabetes mellitus Social History household members: family alcohol intake: never caffeine: Yes alcohol intake frequency: 0-2 drinks per day Exam Initial Vital Signs Initial Vital Signs: Vital Signs Pulse Rate 84 07/08/24 18:15 Pulse Oximetry 98 07/08/24 18:15 General: Older appearing but in no acute distress. HEENT: Moist mucous membranes, normal sclera with reactive pupils, Respiratory: Lungs are clear to auscultation, no wheezing no rales no rhonchi. Full and symmetrical air movement Cardiac: Regular rate and rhythm no murmurs Abdomen: Soft, nontender, no rebound or guarding, no flank pain Skin: Warm and dry, well-perfused Neurologic: She is moving all extremities Extremities: No trauma, 1+ bilateral edema Psych: Cooperative, short-term memory loss Course Orders Ordered: ED Orders 07/08/24 18:18 XR chest 1V Stat EKG-12 Lead Stat 07/08/24 18:30 Ammonia (NH3) Stat Complete Blood Count AUTO DIFF Stat Comprehensive Metabolic Panel Stat Ethanol (ETOH) Stat Lactate (Lactic Acid) Stat Lipase Stat Magnesium Stat NT-proBNP (BNP-Adult 18+) Stat Procalcitonin Stat Troponin I Stat 07/08/24 19:00 Blood Culture Stat 07/08/24 19:49 Urinalysis and Microscopic Stat Urine Culture Stat Urine Drug Screen, Rapid Stat Discontinued Medications Sodium Chloride (Normal Saline 0.9%) 1,000 mls @ 1,000 mls/hr IV BOLUS ONE Stop: 07/08/24 19:20 Last Infusion: 07/08/24 20:01 Dose: Infused Documented By: Admin: 07/08/24 18:45 Dose: 1,000 mls/hr Documented By: VENANCIO Levofloxacin (Levofloxacin 250 Mg Tablet) 500 mg PO NOW ONE Stop: 07/08/24 20:30 Last Admin: 07/08/24 20:33 Dose: 500 mg Documented By: LS Vital Signs Vital signs: Vital Signs - 8 hr 07/08/24 18:15 07/08/24 18:18 07/08/24 18:18 Temperature Pulse Rate 84 95 H Respiratory Rate Blood Pressure 106/55 L Pulse Oximetry 98 98 Oxygen Delivery Method 07/08/24 18:19 07/08/24 18:30 07/08/24 18:30 Temperature 97.0 F L Pulse Rate 93 H 91 H Respiratory Rate 14 21 Blood Pressure 106/55 L 93/50 L Pulse Oximetry 97 96 Oxygen Delivery Method Room Air 07/08/24 18:33 07/08/24 18:33 07/08/24 19:00 Temperature Pulse Rate 82 85 Respiratory Rate 20 14 Blood Pressure 114/59 L Pulse Oximetry 96 97 Oxygen Delivery Method 07/08/24 19:03 07/08/24 19:03 07/08/24 19:23 Temperature Pulse Rate 87 80 Respiratory Rate 17 18 Blood Pressure 105/62 Pulse Oximetry 95 99 Oxygen Delivery Method 07/08/24 19:23 07/08/24 19:30 07/08/24 19:30 Temperature Pulse Rate 76 Respiratory Rate Blood Pressure 101/59 L 123/57 L Pulse Oximetry 94 Oxygen Delivery Method 07/08/24 20:00 07/08/24 20:30 07/08/24 20:48 Temperature Pulse Rate 78 80 79 Respiratory Rate 16 14 Blood Pressure Pulse Oximetry 95 94 Oxygen Delivery Method 07/08/24 20:49 Temperature Pulse Rate Respiratory Rate Blood Pressure 125/60 Pulse Oximetry Oxygen Delivery Method Medical Decision Making Lab Data 07/08/24 18:30 07/08/24 18:30 Labs: Lab Results 07/08/24 07/08/24 07/08/24 Range/Units 18:30 19:49 19:49 WBC 9.6 (4.5-11.0) X10^3/uL RBC 4.75 (4.0-5.2) X10^6/uL Hgb 13.8 (12.0-16.0) g/dL Hct 42.7 (36-46) % MCV 89.7 (80-100) fL MCH 29.0 (26-34) PG MCHC 32.3 (30-36) % RDW 14.8 (11.6-14.8) % Plt Count 268 (150-400) X10^3/uL Neut % (Auto) 68.5 (50-75) % Lymph % (Auto) 19.6 L (25-40) % [place] % (Auto) 6.8 (3-14) % Eos % (Auto) 4.6 H (2-4) % Baso % (Auto) 0.5 (0-2) % Neut # (Auto) 6600 (3518-8806) /uL Lymph # (Auto) 1900 (0672-9317) /uL [place] # (Auto) 700 (0-900) /uL Eos # (Auto) 400 (0-450) /uL Baso # (Auto) 0 (0-100) /uL Sodium 138 (137-145) mmol/L Potassium 5.2 H (3.4-5.1) mmol/L Chloride 105 (98-107) mmol/L Carbon Dioxide 26 (22-32) mmol/L BUN 28 H (7-17) mg/dL Creatinine 1.40 H (0.52-1.04) mg/dL Estimated GFR 37 L (>60) mL/min BUN/Creatinine Ratio 20.0 (6-22) Glucose 122 H (80-110) mg/dL Lactate 1.6 (0.7-2.1) mmol/L Calcium 9.4 (8.4-10.2) mg/dL Magnesium 1.4 L (1.6-2.3) mg/dL Total Bilirubin 0.6 (0.2-1.3) mg/dL AST 24 (14-36) IU/L ALT 28 (<35) IU/L Alkaline Phosphatase 75 (38-126) U/L Ammonia < 9 L (9-30) umol/L Troponin I < 0.012 (0.01-0.034) ng/mL NT-Pro-B Natriuret Pep 157 (<450) pg/mL Total Protein 6.3 (6.3-8.2) g/dL Albumin 3.6 (3.5-5.0) g/dL Globulin 2.7 (1.7-4.1) g/dL Albumin/Globulin Ratio 1.3 (1.0-2.8) Lipase 29 (23-300) U/L Procalcitonin 0.046 (<0.5) ng/mL Urine Color Yellow Urine Appearance Sl cloudy Urine pH 6.0 Normal (4.5-8.0) Ur Specific [place] 1.015 (1.000-1.035) Urine Protein Negative (Negative) Urine Glucose (UA) Negative (Negative) g/dL Urine Ketones Trace H (NEGATIVE) Urine Occult Blood Negative (Negative) Urine Nitrate Positive H (Negative) Urine Bilirubin Negative (NEGATIVE) Urine Urobilinogen 0.2 (0.2) E.U./dL Ur Leukocyte Esterase 1+ H (NEGATIVE) Urine RBC 0-1/hpf (0-5/HPF) Urine WBC 1-5/hpf (0-5/HPF) Ur Squamous Epith Cells 0-1 /hpf (0-5/HPF) Urine Bacteria Many (>30) H (None) Ur Culture Indicated? Specimen cultured Vol Urine Centrifuged 10ml (spun) U Opiates 300ng/mL cut Negative (Negative) Ur Oxycodone Screen Negative (Negative) Urine Methadone Screen Negative (Negative) Ur Barbiturates Screen Negative (Negative) U Tricyclic Antidepress Negative (Negative) Ur Phencyclidine Scrn Negative (Negative) Ur Amphetamines Screen Negative (Negative) U Methamphetamines Scrn Negative (Negative) Ur MDMA Scrn (Ecstasy) Negative (Negative) U Benzodiazepines Scrn Negative (Negative) Urine Cocaine Screen Negative (Negative) U Marijuana (THC) Screen Negative (Negative) Urine Specific [place] Normal (Normal) Ethyl Alcohol < 10 ( - 10) mg/dL Ur Creatinine Normal (Normal) Urine Dip Bedside Urine Glucose Negative Bedside Urine Bilirubin - Negative Bedside Urine Ketone - Negative Urine Specific [place] 1.015 Bedside Urine Occult Blood - Negative Bedside Urine pH 6.0 Bedside Urine Protein - Negative Bedside Urine Urobilinogen - Negative Bedside Urine Nitrite + Positive Bedside Urine Leukocytes ++ 125 Esterase Point of care testing: Urine Dip Bedside Urine Glucose Negative Bedside Urine Bilirubin - Negative Bedside Urine Ketone - Negative Urine Specific [place] 1.015 Bedside Urine Occult Blood - Negative Bedside Urine pH 6.0 Bedside Urine Protein - Negative Bedside Urine Urobilinogen - Negative Bedside Urine Nitrite + Positive Bedside Urine Leukocytes ++ 125 Esterase MDM Narrative Medical decision making narrative: CC: Altered mental status Complicating co-morbidities: Alzheimer's disease, diabetes, congestive heart failure, hypothyroidism, hypertension Data collected from: patient, medics Medical records reviewed: Family practice notes from June 27 are reviewed Differential considered: Sepsis, metabolic encephalopathy, no clinical evidence for stroke, no history of falls to suggest intracranial hemorrhage, significant electrolyte abnormality, urinary tract infection Exam documented above, pertinent findings include: Patient is quite pleasant somewhat confused no acute distress exam is entirely benign Lab Test results independently reviewed as above. Pertinent findings: CBC is unremarkable Chemistries show potassium slightly elevated at 5.2, minor bump in creatinine at 1.4 with a GFR of 37 which is actually close to her baseline, magnesium low at 1.4 Ammonia levels undetectable Troponin level is undetectable BNP is unremarkable Lipase is low Cath urine was obtained, and does appear to be infected. Most recent UTI was June 06 showing Morganella with only oral antibiotic sensitivity to levofloxacin and ciprofloxacin Independently reviewed EKG: EKG shows sinus rhythm with a first-degree AV block no ischemic Imaging studies independently reviewed: Chest x-ray is unremarkable Treatments: 1 L of normal saline. Truly, oral Levaquin Discussion: 88-year-old woman with slightly altered mental status today, urinalysis suggests urinary tract infection and she has had similar symptoms with urinary tract infections. Based on urine culture from June 06 we will treat her with levofloxacin for 7 days and adjust medications if needed when cultures return. She was given a L of fluid. At this point there was no evidence of sepsis, severe electrolyte abnormalities, significant weakness that would preclude discharge home. She is given her 1st dose of levofloxacin in the emergency department, we will give her 500 mg daily due to her impaired renal function. We will contact her daughter with results and recommendations for discharge. Discharge Plan Departure Patient Disposition: Home Clinical Impression: Memory impairment, Acute alteration in mental status Urinary tract infection Qualifiers: Urinary tract infection type: acute cystitis Hematuria presence: without hematuria Qualified Code(s): N30.00 - Acute cystitis without hematuria Instructions: DI for Urinary Tract Infection (UTI) Activity Restrictions/Additional Instructions: Thank you for coming in today It looks like you have a bladder infection starting. There was no sign of sepsis or overwhelming infection that would require hospitalization today. There was no evidence of heart attack, significant electrolyte abnormalities, kidney difficulties or liver problems. I have given you your 1st dose of antibiotics, levofloxacin. This antibiotic is almost as good orally as it is IV. It is once a day and I am going to recommend 7 additional days. My antibiotic choices based on the urine sample with infection seen on June 06. This prescription was electronically transmitted to [facility] in [place] If you find that you are getting worse or develop any new symptoms, please feel free to return to the emergency department for further evaluation. Prescriptions: New levofloxacin 500 mg tablet 500 mg PO DAILY Qty: 7 0RF No Action cinacalcet 30 mg tablet PO DAILY Glucocard Expression Strip See Rx Instructions .ROUTE .COMPLEX Qty: 100 2RF Dose Instruction: USE TO CHECK BLOOD SUGAR FROM FINGER TWICE DAILY Rx Instructions: USE TO CHECK BLOOD SUGAR FROM FINGER TWICE DAILY (DME) Dexcom G6 Inspector Bicycle Misc See Rx Instructions .Route Qty: 1 0RF Rx Instructions: As directed (DME) Dexcom G6 Transmitter Device See Rx Instructions .Route Qty: 1 0RF Rx Instructions: As directed (DME) Dexcom G6 Sensor Device See Rx Instructions .Route Qty: 3 0RF Rx Instructions: As directed guaifenesin [Mucinex] 600 mg tablet extended release 12hr 600 mg PO BID loperamide [Imodium A-D] 2 mg capsule 2 mg PO QID PRN (Reason: loose stool) Qty: 60 1RF furosemide 20 mg tablet 20 mg PO DAILY PRN (Reason: edema) Qty: 90 1RF Mounjaro 7.5 mg/0.5 mL pen injector 7.5 mg SUBCUT QWEEK Qty: 2 3RF losartan 50 mg tablet 50 mg PO DAILY Qty: 90 2RF metformin 1,000 mg tablet 1,000 mg PO BID Qty: 180 3RF levothyroxine 50 mcg tablet 50 mcg PO DAILY Qty: 90 3RF memantine 10 mg tablet 20 mg PO QPM Qty: 180 3RF Rx Instructions: Start after titrating up to 20mg with 5 mg pill (DME) disabled parking permit See Rx Instructions .ROUTE .MEDSUPPLY Qty: 1 0RF Rx Instructions: As directed. patient qualifies for disabled parking as per attached form. cranberry extract 9 cap PO DAILY Referrals: Keenan Stout MD [Primary Care Provider] - Stand Alone Forms: Patient Portal/API/Survey
--- NOTE | 2024-07-08 18:18 | DI.RAD.S_ITS ---
PROCEDURE: XR CHEST 1V INDICATIONS: altered mental status TECHNIQUE: One view of the chest was acquired. COMPARISON: [facility], CR, XR CHEST 1V, 11/26/2023, 11:29. FINDINGS: Surgical changes and devices: None. Lungs and pleura: Lungs are clear. No pleural effusions or pneumothorax. Mediastinum: Mediastinal contours appear normal. Heart size is normal. Bones and chest wall: No suspicious bony lesions. Overlying soft tissues appear unremarkable. IMPRESSION: No acute cardiopulmonary pathology. Dictated by: Brent Fay M.D. on 07/08/2024 at 18:59 Approved by: Brent Fay M.D. on 07/08/2024 at 18:59
--- NOTE | 2024-07-08 18:22 | EKG_ITS ---
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
[2024-07-08 18:41] LABS: Add Manual Diff / Slide Review NO; Basophils Absolute Auto 0 /uL (0-100); Basophils Percent Auto 0.5 % (0-2); Eosinophils Absolute Auto 400 /uL (0-450); Eosinophils Percent Auto 4.6 % (2-4); Hematocrit 42.7 % (36-46); Hemoglobin 13.8 g/dL (12.0-16.0); Lymphocytes Absolute Auto 1900 /uL (1100-4500); Lymphocytes Percent Auto 19.6 % (25-40); Mean Corpuscular HGB Conc 32.3 % (30-36); Mean Corpuscular Volume 89.7 fL (80-100); Monocytes Absolute Auto 700 /uL (0-900); Monocytes Percent Auto 6.8 % (3-14); Neutrophils Absolute Auto 6600 /uL (1500-7000); Neutrophils Percent Auto 68.5 % (50-75); Platelet Count 268 X10^3/uL (150-400); Red Blood Cell Count 4.75 X10^6/uL (4.0-5.2); Red Cell Distribution Width 14.8 % (11.6-14.8); White Blood Cell Count 9.6 X10^3/uL (4.5-11.0)
[2024-07-08] MEDS: SODIUM CHLORIDE 0.9% 1,000 ML 1000 ML IV (18:45)
[2024-07-08 18:53] LABS: Alanine Aminotransferase 28 IU/L (<35); Albumin 3.6 g/dL (3.5-5.0); Albumin Globulin Ratio 1.3 (1.0-2.8); Alkaline Phosphatase 75 U/L (38-126); Ammonia (NH3) < 9 umol/L (9-30); Aspartate Aminotransferase 24 IU/L (14-36); Bilirubin Total 0.6 mg/dL (0.2-1.3); Blood Urea Nitrogen 28 mg/dL (7-17); Calcium 9.4 mg/dL (8.4-10.2); Carbon Dioxide 26 mmol/L (22-32); Chloride 105 mmol/L (98-107); Estimated Glomerular Filt Rate 37 mL/min (>60); Ethanol (ETOH) < 10 mg/dL; Globulin 2.7 g/dL (1.7-4.1); Glucose 122 mg/dL (80-110); HEMOLYSIS < 15 (0-50); Lactate (Lactic Acid) 1.6 mmol/L (0.7-2.1); Lipase 29 U/L (23-300); Magnesium 1.4 mg/dL (1.6-2.3); Potassium 5.2 mmol/L (3.4-5.1); Sodium 138 mmol/L (137-145); Total Protein 6.3 g/dL (6.3-8.2)
[2024-07-08 19:04] LABS: NT-proBNP (BNP-Adult 18+) 157 pg/mL (<450); Troponin I < 0.012 ng/mL (0.01-0.034)
[2024-07-08 19:09] LABS: Procalcitonin 0.046 ng/mL (<0.5)
[2024-07-08 19:58] LABS: Appearance Urine UA SL CLOUDY; Bilirubin Urine UA NEGATIVE (NEGATIVE); Color Urine UA YELLOW; Glucose Urine UA NEGATIVE (Negative); Ketones Urine UA TRACE (NEGATIVE); Leukocyte Esterase Urine UA 1+ (NEGATIVE); Nitrite Urine UA POSITIVE (Negative); Occult Blood Urine UA NEGATIVE (Negative); Protein Urine UA NEGATIVE (Negative); Specific Gravity Urine UA 1.015 (1.000-1.035); Urobilinogen Urine UA 0.2 E.U./dL (0.2)
[2024-07-08 20:01] LABS: UR Morphine/Opiate cutoff 300 Negative (Negative); Ur Creatinine Normal (Normal); Ur Specific Gravity Normal (Normal); Urine Amphetamines Negative (Negative); Urine Barbiturates Negative (Negative); Urine Benzodiazepines Negative (Negative); Urine Cocaine Negative (Negative); Urine MDMA Negative (Negative); Urine Methadone Negative (Negative); Urine Methamphetamines Negative (Negative); Urine Oxycodone Negative (Negative); Urine Phencyclidine Negative (Negative); Urine Tetrahydrocannabinol Negative (Negative); Urine Tricyclic Antidepressant Negative (Negative); Urine pH Normal (Normal)
[2024-07-08 20:04] LABS: Bacteria Urine Many (>30); Culture Indicated Urine Specimen Cultured; RBC Urine 0-1/HPF (0-5/HPF); Squamous Epithelial Cell Urine 0-1 /HPF (0-5/HPF); Urine Volume 10mL (spun); WBC Urine 1-5/HPF (0-5/HPF)
[2024-07-08] MEDS: levoFLOXacin 250 MG TABLET 500 MG PO (20:33)
== END 2024-07-08 20:58 | disposition home or self-care (01) ==
PROVIDERS: Emergency Provider Emergency Medicine; PCP Family Medicine
DX: R41.82 Altered mental status, unspecified (principal); N30.00 Acute cystitis without hematuria; I44.0 Atrioventricular block, first degree; R41.3 Other amnesia
CPT/HCPCS: 36415; 71045; 80053; 80305; 80320; 81001; 81003; 82140; 83605; 83690; 83735; 83880; 84145; 84484; 85025; 87040; 87077; 87086; 87186; 93005; 96360; 99284

== ENCOUNTER 2024-07-25 12:35 | Emergency (ER) | payer OTHER, SELFPAY ==
[2023-11-26 16:27] VITALS: BMI 34.7
[2024-07-25] VITALS (8 sets, daily range): BP systolic 106–133; BP diastolic 58–67; PULSE 77–91; RESP 10–28; TEMP 36.6; O2SAT 93–99; BMI 28.6
--- NOTE | 2024-07-25 12:50 | EKG_ITS ---
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
--- NOTE | 2024-07-25 13:00 | ED_ITS ---
HPI - Recheck/Abnormal Lab/Rx General Chief Complaint: Recheck/Abnormal Lab/Rx Stated Complaint: low potassium sent from her Diabetic DR Time Seen by Provider: 07/25/24 12:54 Source: patient and family Mode of arrival: Wheelchair History of Present Illness HPI narrative: 88-year-old female history of dementia diabetes presents for evaluation of potassium being high at 6.5. Patient is pleasantly demented the rest of the information is taken from family at bedside by she is currently asymptomatic with no complaints head to toe. Patient denies chest pain, shortness of breath, fever, chills, nausea, vomiting, diarrhea. Other than what is stated 14 point review of system is negative. Related Data Home Medications Medication Instructions Recorded Confirmed cranberry extract 9 cap PO DAILY 06/22/23 07/18/24 guaifenesin 600 mg tablet, 600 mg PO BID 12/02/23 07/18/24 extended release 12 hr (Mucinex) cinacalcet 30 mg tablet mg PO DAILY 05/06/24 07/18/24 Previous Rx's Medication Instructions Recorded disabled parking permit #1 ea 02/09/20 blood sugar diagnostic (Glucocard See Rx Instructions .Route 12/23/20 Expression strips) .COMPLEX #100 ea blood-glucose sensor (Dexcom G6 #3 ea 02/13/22 Sensor device) blood-glucose transmitter (Dexcom #1 ea 02/13/22 G6 Transmitter device) blood-glucose,personal care worker,cont #1 ea 02/13/22 (Dexcom G6 Senior Packaging Engineer) metformin 1,000 mg tablet 1,000 mg PO BID #180 tabs 02/03/24 furosemide 20 mg tablet 20 mg PO DAILY PRN edema #90 tabs 04/20/24 levothyroxine 50 mcg tablet 50 mcg PO DAILY #90 tabs 04/27/24 tirzepatide 7.5 mg/0.5 mL 7.5 mg (0.5 mL) SUBCUT QWEEK #2 mL 04/28/24 subcutaneous pen injector (Chica) memantine 10 mg tablet 20 mg (2 x 10 mg) PO QPM #180 tabs 05/16/24 nitrofurantoin 100 mg PO Q12H #20 caps 07/11/24 monohydrate/macrocrystals 100 mg capsule (Macrobid) loperamide 2 mg capsule (Imodium 2 mg PO QID PRN loose stool #60 07/18/24 A-D) caps Allergies Allergy/AdvReac Type Severity Reaction Status Date / Time penicillin G [PENICILLIN G] Allergy Intermediate Hives Verified 07/18/24 10:58 Review of Systems Review of Systems ROS Unobtainable: All systems reviewed & are unremarkable except as noted in HPI and below Patient History Medical History (Updated 07/25/24 @ 14:36 by Alber Courtney DO) Acute metabolic encephalopathy History of urinary tract infection Incomplete emptying of bladder Alzheimer disease Atrophic vaginitis Cognitive dysfunction Urge incontinence Secondhand smoke exposure Recurrent urinary tract infection History of asthma Lower extremity edema Hyperparathyroidism Swelling of left hand Obesity (BMI 30-39.9) Infection of fingernail of left hand Laceration of hand Shortness of breath Hypoxemia UTI (urinary tract infection) CVA, old, alterations of sensations Nocturnal hypoxemia Obstructive sleep apnea of adult (~08/2018) Excessive daytime sleepiness CVA (cerebral vascular accident) Fractures (~1962) Foot pain (~1962) Eczema (~2013) Hepatitis C (~1948) Cataract (~2014) Diabetes mellitus (~1996) Contusion of rib on right side Contusion of right shoulder Cellulitis Surgical History History of knee replacement Anesthesia Personal history of spine surgery (~2005) Personal history of spine surgery (~2003) Family History Brother No problems noted. Father No problems noted. Mother No problems noted. Daughter Diabetes mellitus Hypertension Thyroid condition Son Diabetes mellitus Social History household members: family Smoking Status: Never smoker alcohol intake: never caffeine: Yes Smoking Status: Never smoker alcohol intake frequency: 0-2 drinks per day Exam Narrative Exam Narrative: GENERAL: [88] year old patient appears stated age. Well-developed patient, in mild distress. HEAD: Atraumatic. Normocephalic. EYES: Pupils equal round and reactive. Extraocular motions intact. No scleral icterus. No injection or drainage. ENT: Nose without bleeding, purulent drainage. Throat without erythema, tonsillar hypertrophy or exudate. Airway patent. NECK: Trachea midline. Non tender CARDIOVASCULAR: Regular rate and rhythm without murmurs, gallops, or rubs. RESPIRATORY: Clear to auscultation. Breath sounds equal bilaterally. No wheezes, rales, or rhonchi. GASTROINTESTINAL: Abdomen soft, non-tender, nondistended. EXTREMITIES: No edema or joint tenderness. BACK: Nontender without deformity or crepitance. No flank tenderness. NEURO: AOx1 nonfocal neuro exam. Moving all extremities spontaneously SKIN: No rash or erythema of visible areas Initial Vital Signs Initial Vital Signs: Vital Signs Temperature 97.8 F 07/25/24 12:38 Pulse Rate 86 07/25/24 12:38 Respiratory Rate 18 07/25/24 12:38 Blood Pressure 114/59 L 07/25/24 12:38 Pulse Oximetry 98 07/25/24 12:38 Oxygen Delivery Method Room Air 07/25/24 12:38 Course Orders Ordered: ED Orders 07/25/24 12:43 EKG-12 Lead Stat 07/25/24 12:55 CMP [Comprehensive Metabolic Panel] Stat Complete Blood Count AUTO DIFF Stat Vital Signs Vital signs: Vital Signs - 8 hr 07/25/24 12:38 07/25/24 12:49 07/25/24 12:49 Temperature 97.8 F Pulse Rate 86 81 Respiratory Rate 18 Blood Pressure 114/59 L 133/67 Pulse Oximetry 98 94 Oxygen Delivery Method Room Air 07/25/24 13:00 07/25/24 13:01 07/25/24 13:01 Temperature Pulse Rate 79 80 Respiratory Rate 17 15 Blood Pressure 116/58 L Pulse Oximetry 99 99 Oxygen Delivery Method 07/25/24 13:30 07/25/24 13:48 07/25/24 13:48 Temperature Pulse Rate 82 78 Respiratory Rate 28 H 20 Blood Pressure 131/63 Pulse Oximetry 98 98 Oxygen Delivery Method 07/25/24 14:00 07/25/24 14:00 Temperature Pulse Rate 91 H Respiratory Rate 10 L Blood Pressure 106/63 Pulse Oximetry 93 Oxygen Delivery Method MDM - Recheck/Abnormal Lab/Rx Lab Data 07/25/24 12:55 07/25/24 12:55 Labs: Lab Results 07/25/24 Range/Units 12:55 WBC 11.8 H (4.5-11.0) X10^3/uL RBC 4.89 (4.0-5.2) X10^6/uL Hgb 14.5 (12.0-16.0) g/dL Hct 43.9 (36-46) % MCV 89.7 (80-100) fL MCH 29.7 (26-34) PG MCHC 33.2 (30-36) % RDW 15.1 H (11.6-14.8) % Plt Count 227 (150-400) X10^3/uL Neut % (Auto) 77.2 H (50-75) % Lymph % (Auto) 13.7 L (25-40) % [place] % (Auto) 6.5 (3-14) % Eos % (Auto) 2.3 (2-4) % Baso % (Auto) 0.3 (0-2) % Neut # (Auto) 9100 H (4842-6375) /uL Lymph # (Auto) 1600 (4253-0135) /uL [place] # (Auto) 800 (0-900) /uL Eos # (Auto) 300 (0-450) /uL Baso # (Auto) 0 (0-100) /uL Sodium 137 (137-145) mmol/L Potassium 5.1 (3.4-5.1) mmol/L Chloride 100 (98-107) mmol/L Carbon Dioxide 24 (22-32) mmol/L BUN 32 H (7-17) mg/dL Creatinine 1.40 H (0.52-1.04) mg/dL Estimated GFR 37 L (>60) mL/min BUN/Creatinine Ratio 22.9 H (6-22) Glucose 172 H (70-99) mg/dL Calcium 9.4 (8.4-10.2) mg/dL Total Bilirubin 0.5 (0.2-1.3) mg/dL AST 27 (14-36) IU/L ALT 23 (<35) IU/L Alkaline Phosphatase 72 (38-126) U/L Total Protein 7.0 (6.3-8.2) g/dL Albumin 4.2 (3.5-5.0) g/dL Globulin 2.8 (1.7-4.1) g/dL Albumin/Globulin Ratio 1.5 (1.0-2.8) Imaging Data Chest x-ray: Radiologist's Impression: [address] [address] XRay Report Signed Patient: Isabella Lucero MR#: [id number] : 1935 Acct:[id number] Age/Sex: 88 / F Date of Service: 07/08/24 Loc: ED Accession Number: [id number] Procedure: XR chest 1V Ordering Provider: Mariangel Erickson MD PROCEDURE: XR CHEST 1V INDICATIONS: altered mental status TECHNIQUE: One view of the chest was acquired. COMPARISON: [facility], CR, XR CHEST 1V, 11/26/2023, 11:29. FINDINGS: Surgical changes and devices: None. Lungs and pleura: Lungs are clear. No pleural effusions or pneumothorax. Mediastinum: Mediastinal contours appear normal. Heart size is normal. Bones and chest wall: No suspicious bony lesions. Overlying soft tissues appear unremarkable. IMPRESSION: No acute cardiopulmonary pathology. Dictated by: Brent Fay M.D. on 07/08/2024 at 18:59 Approved by: Brent Fay M.D. on 07/08/2024 at 18:59 ECG Data Interpretation: SR HR 80 IA 388 QRS [address]-t wave change Unchange from 07/08/24 MDM Narrative Medical decision making narrative: All lab work, vital signs, nurse triage note, medication list, previous ER visits all reviewed. Potassium here today is 5.1 not 6.5 from labs drawn from the office. Differential diagnosis includes hyper or hypokalemia hemolyzed sample and lab error. Return with new or worsening symptoms. Discharge Plan Departure Patient Disposition: Home Clinical Impression: At high risk for hyperkalemia Activity Restrictions/Additional Instructions: Return with new or worsening symptoms. Follow up with PCP and specialists at your next appointment. Prescriptions: No Action cinacalcet 30 mg tablet PO DAILY Glucocard Expression Strip See Rx Instructions .ROUTE .COMPLEX Qty: 100 2RF Dose Instruction: USE TO CHECK BLOOD SUGAR FROM FINGER TWICE DAILY Rx Instructions: USE TO CHECK BLOOD SUGAR FROM FINGER TWICE DAILY (DME) Dexcom G6 Senior Packaging Engineer Misc See Rx Instructions .Route Qty: 1 0RF Rx Instructions: As directed (DME) Dexcom G6 Transmitter Device See Rx Instructions .Route Qty: 1 0RF Rx Instructions: As directed (DME) Dexcom G6 Sensor Device See Rx Instructions .Route Qty: 3 0RF Rx Instructions: As directed guaifenesin [Mucinex] 600 mg tablet extended release 12hr 600 mg PO BID furosemide 20 mg tablet 20 mg PO DAILY PRN (Reason: edema) Qty: 90 1RF Mounjaro 7.5 mg/0.5 mL pen injector 7.5 mg SUBCUT QWEEK Qty: 2 3RF loperamide [Imodium A-D] 2 mg capsule 2 mg PO QID PRN (Reason: loose stool) Qty: 60 1RF metformin 1,000 mg tablet 1,000 mg PO BID Qty: 180 3RF levothyroxine 50 mcg tablet 50 mcg PO DAILY Qty: 90 3RF memantine 10 mg tablet 20 mg PO QPM Qty: 180 3RF Rx Instructions: Start after titrating up to 20mg with 5 mg pill (DME) disabled parking permit See Rx Instructions .ROUTE .MEDSUPPLY Qty: 1 0RF Rx Instructions: As directed. patient qualifies for disabled parking as per attached form. cranberry extract 9 cap PO DAILY nitrofurantoin monohyd/m-cryst [Macrobid] 100 mg capsule 100 mg PO Q12H Qty: 20 0RF Rx Instructions: must administer with a meal/food Referrals: Keenan Stout MD [Primary Care Provider] - Stand Alone Forms: Patient Portal/API/Survey
[2024-07-25 13:02] LABS: Add Manual Diff / Slide Review NO; Basophils Absolute Auto 0 /uL (0-100); Basophils Percent Auto 0.3 % (0-2); Eosinophils Absolute Auto 300 /uL (0-450); Eosinophils Percent Auto 2.3 % (2-4); Hematocrit 43.9 % (36-46); Hemoglobin 14.5 g/dL (12.0-16.0); Lymphocytes Absolute Auto 1600 /uL (1100-4500); Lymphocytes Percent Auto 13.7 % (25-40); Mean Corpuscular HGB Conc 33.2 % (30-36); Mean Corpuscular Hemoglobin 29.7 PG (26-34); Mean Corpuscular Volume 89.7 fL (80-100); Monocytes Absolute Auto 800 /uL (0-900); Monocytes Percent Auto 6.5 % (3-14); Neutrophils Absolute Auto 9100 /uL (1500-7000); Neutrophils Percent Auto 77.2 % (50-75); Platelet Count 227 X10^3/uL (150-400); Red Blood Cell Count 4.89 X10^6/uL (4.0-5.2); Red Cell Distribution Width 15.1 % (11.6-14.8); White Blood Cell Count 11.8 X10^3/uL (4.5-11.0)
[2024-07-25 13:16] LABS: Alanine Aminotransferase 23 IU/L (<35); Albumin 4.2 g/dL (3.5-5.0); Albumin Globulin Ratio 1.5 (1.0-2.8); Alkaline Phosphatase 72 U/L (38-126); Aspartate Aminotransferase 27 IU/L (14-36); BUN Creatinine Ratio 22.9 (6-22); Bilirubin Total 0.5 mg/dL (0.2-1.3); Blood Urea Nitrogen 32 mg/dL (7-17); Calcium 9.4 mg/dL (8.4-10.2); Carbon Dioxide 24 mmol/L (22-32); Chloride 100 mmol/L (98-107); Estimated Glomerular Filt Rate 37 mL/min (>60); Globulin 2.8 g/dL (1.7-4.1); Glucose 172 mg/dL (70-99); HEMOLYSIS < 15 (0-50); Potassium 5.1 mmol/L (3.4-5.1); Sodium 137 mmol/L (137-145)
== END 2024-07-25 14:59 | disposition home or self-care (01) ==
PROVIDERS: Emergency Provider Family Medicine; PCP Family Medicine
DX: Z91.89 Other specified personal risk factors, not elsewhere classified (principal); R41.82 Altered mental status, unspecified; E11.9 Type 2 diabetes mellitus without complications
CPT/HCPCS: 80053; 85025; 93005; 99281; 99283

== ENCOUNTER → 2024-07-27 13:29 | Outpatient (CLI) | payer OTHER, SELFPAY ==
[2023-11-26 16:27] VITALS: BMI 34.7
[2024-07-27 14:22] LABS: Appearance Urine UA CLEAR; Bilirubin Urine UA NEGATIVE (NEGATIVE); Color Urine UA YELLOW; Glucose Urine UA NEGATIVE (Negative); Ketones Urine UA TRACE (NEGATIVE); Leukocyte Esterase Urine UA TRACE (NEGATIVE); Nitrite Urine UA POSITIVE (Negative); Occult Blood Urine UA NEGATIVE (Negative); Protein Urine UA NEGATIVE (Negative); Urobilinogen Urine UA 0.2 E.U./dL (0.2)
[2024-07-27 14:42] LABS: Bacteria Urine Many (>30); Culture Indicated Urine Specimen Cultured; RBC Urine 0-1/HPF (0-5/HPF); Squamous Epithelial Cell Urine 1-5 /HPF (0-5/HPF); Urine Volume Low Vol <10mL (spun); WBC Urine 1-5/HPF (0-5/HPF)
== END ==
PROVIDERS: PCP Family Medicine; Referring Provider Family Medicine; Visit Provider Family Medicine
DX: R82.90 Unspecified abnormal findings in urine (principal); G47.19 Other hypersomnia
CPT/HCPCS: 81001; 87077; 87086

== ENCOUNTER → 2024-08-20 10:30 | Outpatient (CLI) | payer MEDICARE, SELFPAY ==
[2023-11-26 16:27] VITALS: BMI 34.7
== END ==
PROVIDERS: PCP Family Medicine; Visit Provider Registered Nurse
DX: N39.0 Urinary tract infection, site not specified (principal); N39.41 Urge incontinence
CPT/HCPCS: 87077; 87086; 87186

== ENCOUNTER → 2024-09-07 13:48 | Outpatient (CLI) | payer OTHER, SELFPAY ==
[2023-11-26 16:27] VITALS: BMI 34.7
[2024-09-07 14:02] LABS: Appearance Urine UA CLEAR; Bilirubin Urine UA NEGATIVE (NEGATIVE); Color Urine UA YELLOW; Glucose Urine UA NEGATIVE (Negative); Ketones Urine UA NEGATIVE (NEGATIVE); Leukocyte Esterase Urine UA TRACE (NEGATIVE); Nitrite Urine UA NEGATIVE (Negative); Occult Blood Urine UA NEGATIVE (Negative); Protein Urine UA NEGATIVE (Negative); Specific Gravity Urine UA 1.015 (1.000-1.035); Urobilinogen Urine UA 0.2 E.U./dL (0.2)
[2024-09-07 14:16] LABS: pH Urine UA 7.5 (4.5-8.0)
[2024-09-07 14:28] LABS: Bacteria Urine None Seen; RBC Urine None Seen (0-5/HPF); Squamous Epithelial Cell Urine 0-1 /HPF (0-5/HPF); Urine Volume 10mL (spun)
[2024-09-07 14:29] LABS: Amorphous Sediment Urine 1+; Culture Indicated Urine Cult Not Indicated; WBC Urine 1-5/HPF (0-5/HPF)
== END ==
PROVIDERS: PCP Family Medicine; Referring Provider Family Medicine; Visit Provider Family Medicine
DX: N39.0 Urinary tract infection, site not specified (principal)
CPT/HCPCS: 81001

== ENCOUNTER 2024-10-07 06:36 | Emergency (ER) | payer OTHER, SELFPAY ==
[2023-11-26 16:27] VITALS: BMI 34.7
[2024-10-07] VITALS (12 sets, daily range): BP systolic 127–144; BP diastolic 61–73; PULSE 87–102; RESP 17–35; TEMP 36.4–37; O2SAT 91–100; BMI 23.0
[2024-10-07] MEDS: ALBUTEROL/IPRATROPIUM 3 ML AMPUL INH (07:04)
[2024-10-07] MEDS: ALBUTEROL 2.5 MG/3 ML NEB (ADULT) INH (07:04)
--- NOTE | 2024-10-07 07:17 | DI.RAD.S_ITS ---
PROCEDURE: XR CHEST 1V INDICATIONS: cough TECHNIQUE: One view of the chest was acquired. COMPARISON: [facility], CR, XR CHEST 1V, 07/08/2024, 18:26. FINDINGS: Surgical changes and devices: None. Lungs and pleura: Mild patchy bibasilar atelectasis. No pleural effusions or pneumothorax. Mediastinum: Mediastinal contours appear normal. Heart size is mildly enlarged. Bones and chest wall: No suspicious bony lesions. Overlying soft tissues appear unremarkable. IMPRESSION: Mild patchy bibasilar atelectasis Dictated by: Olu Garcia M.D. on 10/07/2024 at 7:58 Approved by: Olu Garcia M.D. on 10/07/2024 at 7:59
[2024-10-07 07:35] LABS: Add Manual Diff / Slide Review NO; Hematocrit 40.1 % (36-46); Hemoglobin 13.3 g/dL (12.0-16.0); Lymphocytes Absolute Auto 600 /uL (1100-4500); Mean Corpuscular HGB Conc 33.1 % (30-36); Mean Corpuscular Hemoglobin 29.9 PG (26-34); Mean Corpuscular Volume 90.2 fL (80-100); Platelet Count 256 X10^3/uL (150-400)
[2024-10-07 07:40] LABS: INR 1.1 (0.9-1.3); Prothrombin Time 12.2 SECONDS (9.4-12.5)
[2024-10-07 07:43] LABS: Lactate (Lactic Acid) 1.8 mmol/L (0.7-2.1)
[2024-10-07 07:44] LABS: Alanine Aminotransferase 26 IU/L (<35); Albumin 3.8 g/dL (3.5-5.0); Albumin Globulin Ratio 1.2 (1.0-2.8); Alkaline Phosphatase 83 U/L (38-126); Blood Urea Nitrogen 12 mg/dL (7-17); Calcium 8.8 mg/dL (8.4-10.2); Carbon Dioxide 22 mmol/L (22-32); Chloride 103 mmol/L (98-107); Creatine Kinase 34 U/L (30-135); Estimated Glomerular Filt Rate 59 mL/min (>60); Globulin 3.1 g/dL (1.7-4.1); Glucose 243 mg/dL (70-99); Potassium 5.0 mmol/L (3.4-5.1); Sodium 133 mmol/L (137-145); Total Protein 6.9 g/dL (6.3-8.2)
[2024-10-07 07:49] LABS: PTT Partial Thromboplastin Tim 29 SECONDS (25.1-36.5)
[2024-10-07 07:56] LABS: Troponin I 0.044 ng/mL (0.01-0.034)
--- NOTE | 2024-10-07 07:58 | EKG_ITS ---
[place] [id number] [place] [id number] Test Date: 2024-10-07 Pat Name: Isabella Lucero Department: [facility] Room: Gender: Female Regrader: : 1935 Requested By: Order Number: [id number] Reading MD: Alber Laughlin MD Measurements Intervals [place] Rate: 96 P: 46 [place]: 152 QRS: 56 QRSD: 80 T: 192 QT: 408 QTc: 515 Interpretive Statements Normal sinus rhythm Low voltage QRS Cannot rule out Anterior infarct , age undetermined T wave abnormality, consider inferolateral ischemia Prolonged QT Electronically Signed On 10-07-2024 8:41:50 PDT by Alber Laughlin MD
[2024-10-07 08:01] LABS: Procalcitonin 0.083 ng/mL (<0.5)
[2024-10-07 08:10] LABS: HEMOLYSIS 45 (0-50); NT-proBNP (BNP-Adult 18+) 40100 pg/mL (<450)
[2024-10-07 08:21] LABS: Coronavirus NL 63 Not Detected (Not Detect); SARS- CoV-2 Not Detected (Not Detecte)
--- NOTE | 2024-10-07 08:39 | DI.CT.S_ITS ---
PROCEDURE: CT ANGIO CHEST PE PROTOCOL INDICATIONS: dimer TECHNIQUE: After the administration of intravenous contrast, 2 mm thick sections acquired from the pulmonary apices to the posterior costophrenic angles. 3-dimensional maximum intensity projection (MIP) coronal and sagittal reformats were then acquired through the thorax. For radiation dose reduction, the following was used: automated exposure control, adjustment of mA and/or kV according to patient size. COMPARISON: [facility], CT, CT ABDOMEN PELVIS WO/W CON, 05/07/2022, 10:50. [facility], CR, XR CHEST 1V, 10/07/2024, 7:23. [facility], CR, XR CHEST 1V, 07/08/2024, 18:26. FINDINGS: Image quality: Diagnostic. Pulmonary arteries: Pulmonary arteries are normal in size, and demonstrate no intraluminal filling defects to suggest central pulmonary embolism. Lower Neck: No enlarged lymph nodes. Thyroid: No thyroid nodules which require sonographic follow up, per consensus guidelines. Subcentimeter left thyroid nodule. Axillae: No enlarged lymph nodes. Chest Wall: Unremarkable. Bones: No suspicious osseous lesion. Lungs and Pleura: Mild opacity in the right lung. There are areas of bronchial wall thickening and distal mucus airway plugging. Moderate right and small left pleural effusions. Heart: Heart size is normal. Small pericardial effusion. Thoracic Vessels: No aortic aneurysm. Mediastinum and [place]: No enlarged lymph nodes. Esophagus: No wall thickening. No hiatal hernia. Upper Abdomen: A few hepatic cysts. IMPRESSION: 1. No pulmonary embolism. 2. Moderate right and small left pleural effusions. Small pericardial effusion. 3. Bronchial wall thickening and distal mucus airway plugging. Findings suggesting bronchitis. Additional right lung airspace opacity. This could represent infectious/inflammatory etiology. Dictated by: Primo Ba M.D. on 10/07/2024 at 8:37 Approved by: Primo Ba M.D. on 10/07/2024 at 8:44
[2024-10-07] MEDS: FUROSEMIDE 40 MG/4 ML VIAL IV (09:08)
[2024-10-07 10:36] LABS: Troponin I 0.042 ng/mL (0.01-0.034)
[2024-10-07 10:39] LABS: Appearance Urine UA CLEAR; Bilirubin Urine UA NEGATIVE (NEGATIVE); Color Urine UA YELLOW; Glucose Urine UA NEGATIVE (Negative); Ketones Urine UA NEGATIVE (NEGATIVE); Leukocyte Esterase Urine UA NEGATIVE (NEGATIVE); Nitrite Urine UA NEGATIVE (Negative); Occult Blood Urine UA 2+ (Negative); Protein Urine UA NEGATIVE (Negative); Specific Gravity Urine UA 1.010 (1.000-1.035); Urobilinogen Urine UA 0.2 E.U./dL (0.2)
[2024-10-07 10:40] LABS: pH Urine UA 5.5 (4.5-8.0)
[2024-10-07 10:43] LABS: Culture Indicated Urine Cult Not Indicated
--- NOTE | 2024-10-07 10:44 | ED.SOB ---
HPI - SOB/Dyspnea General Chief Complaint: Shortness of Breath/Dyspnea Stated Complaint: SOB, Chest Congestion Time Seen by Provider: 10/07/24 06:39 Source: patient and family Mode of arrival: Wheelchair Limitations: no limitations History of Present Illness HPI Narrative: Pleasant 89-year-old woman with a known history of asthma comes to the ER because of shortness of breath which began this morning. She states that she tried her albuterol inhaler at home without significant improvement. She denies any productive cough, fever, chills, sweats. She admits to significant wheezing and a dry cough. She denies any known environmental irritants that may have set this off but she admits to her grandson being sick with a URI around her recently. She denies any chest pain, palpitations, diaphoresis, nausea, vomiting, abdominal pain. The patient has no other concerns or complaints at this time. 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 Related Data Home Medications ?Medication ?Instructions ?Recorded ?Confirmed cranberry extract 9 cap PO DAILY 06/22/23 08/20/24 cinacalcet 30 mg tablet mg PO DAILY 05/06/24 08/20/24 Previous Rx's ?Medication ?Instructions ?Recorded disabled parking permit #1 ea 02/09/20 blood sugar diagnostic (Glucocard See Rx Instructions .Route 12/23/20 Expression strips) .COMPLEX #100 ea blood-glucose sensor (Dexcom G6 #3 ea 02/13/22 Sensor device) blood-glucose transmitter (Dexcom #1 ea 02/13/22 G6 Transmitter device) blood-glucose,tile setter,cont #1 ea 02/13/22 (Dexcom G6 Skin Care Therapist) metformin 1,000 mg tablet 1,000 mg PO BID #180 tabs 02/03/24 furosemide 20 mg tablet 20 mg PO DAILY PRN edema #90 tabs 04/20/24 Held on 08/07/24. Instructions: Home Medication placed on hold at Doctor's office levothyroxine 50 mcg tablet 50 mcg PO DAILY #90 tabs 04/27/24 memantine 10 mg tablet 20 mg (2 x 10 mg) PO QPM #180 tabs 05/16/24 loperamide 2 mg capsule (Imodium 2 mg PO QID PRN loose stool #60 07/18/24 A-D) caps tirzepatide 7.5 mg/0.5 mL 7.5 mg (0.5 mL) SUBCUT QWEEK #2 mL 08/07/24 subcutaneous pen injector (Herminiounterriro) albuterol sulfate 90 mcg/actuation 2 puff inhalation Q4-6H PRN 10/07/24 aerosol inhaler shortness of breath or wheezing #8.5 grams doxycycline hyclate 100 mg tablet 100 mg PO BID #14 tabs 10/07/24 prednisone 50 mg tablet 50 mg PO DAILY #5 tabs 10/07/24 Allergies Allergy/AdvReac Type Severity Reaction Status Date / Time penicillin G (PENICILLIN G) Allergy Intermediate Hives Verified 10/07/24 06:53 Patient History Medical History Acute metabolic encephalopathy History of urinary tract infection Incomplete emptying of bladder Alzheimer disease Atrophic vaginitis Cognitive dysfunction Urge incontinence Secondhand smoke exposure Recurrent urinary tract infection History of asthma Lower extremity edema Hyperparathyroidism Swelling of left hand Obesity (BMI 30-39.9) Infection of fingernail of left hand Laceration of hand Shortness of breath Hypoxemia UTI (urinary tract infection) CVA, old, alterations of sensations Nocturnal hypoxemia Obstructive sleep apnea of adult (~08/2018) Excessive daytime sleepiness CVA (cerebral vascular accident) Fractures (~1962) Foot pain (~1962) Eczema (~2013) Hepatitis C (~1948) Cataract (~2014) Diabetes mellitus (~1996) Contusion of rib on right side Contusion of right shoulder Cellulitis Surgical History History of knee replacement Anesthesia Personal history of spine surgery (~2005) Personal history of spine surgery (~2003) Family History Brother No problems noted. Father No problems noted. Mother No problems noted. Daughter Diabetes mellitus Hypertension Thyroid condition Son Diabetes mellitus Social History household members: family Smoking Status: Never smoker alcohol intake: never caffeine: Yes Smoking Status: Never smoker alcohol intake frequency: 0-2 drinks per day Exam Initial Vital Signs Initial Vital Signs: Vital Signs Temperature 97.6 F 10/07/24 06:52 Pulse Rate 94 H 10/07/24 06:52 Respiratory Rate 26 H 10/07/24 06:52 Blood Pressure 144/73 H 10/07/24 06:52 Pulse Oximetry 94 10/07/24 06:52 Oxygen Delivery Method Room Air 10/07/24 06:52 Const General: cooperative and acute distress [facility] Head: normal to inspection and normocephalic Ears: hearing grossly normal bilaterally Eyes General: Yes appearance normal, both eyes and all related structures Neck Neck: normal visual inspection and No lymphadenopathy Chest Chest: normal inspection of the chest Resp Effort & Inspection: audible wheezes, respiratory distress, no stridor, tachypneic, uses accessory muscles, prolonged expiratory phase and symmetric chest movement Auscultation: bronchial breath sounds, bronchovesicular breath sounds and wheezes Cardio Rate: regular rate Rhythm: regular rhythm Heart Sounds: S1 normal and S2 normal GI Palpation: soft and No tender Auscultation: normal bowel sounds Course Course Course Narrative: Pleasant 89-year-old woman seen and examined upon arrival in the ER. She had initially wheezing that was audible throughout the room. This did not improve significantly with the DuoNeb she was even on presentation. However, after she was given Solu-Medrol her breathing improved significantly and the wheezing was no longer audible. She never required supplemental O2 during this ER visit. She was also positive for parainfluenza virus which likely explains the source of her asthma exacerbation. She did have an elevated D-dimer so CTA of the chest was done and this just showed some pleural effusions and a small pericardial effusion. This is consistent with her CHF. Fortunately, the patient was not requiring any supplemental oxygen, therefore I advised her to follow up with her PCP as soon as possible and get a new echo as soon as possible. The patient was prescribed 4 more days of oral steroids along with doxycycline to prevent pneumonia. Advised her to follow up in the ER for any change or worsening in her condition especially fever, chills, sweats, worsening shortness of breath or any other concerns. The patient did have a mild elevation of her troponin but this was downtrending at the time of discharge and she has had demand ischemia elevations of her troponin at our hospital in the past as well. She also never had any chest pain. Orders Ordered: ED Orders 10/07/24 07:17 XR chest 1V Stat EKG-12 Lead Stat 10/07/24 07:20 Blood Culture Stat Complete Blood Count AUTO DIFF Stat Comprehensive Metabolic Panel Stat D Dimer Stat Lactate (Lactic Acid) Stat NT-proBNP (BNP-Adult 18+) Stat PTT Partial Thromboplastin Jerod Stat Procalcitonin Stat Prothrombin Time INR Stat Respiratory Panel (Film Array) Stat Troponin & CK Cardiac Panel Stat 10/07/24 08:00 Troponin I Stat 10/07/24 08:39 CT angio chest PE protocol Stat 10/07/24 10:29 Urinalysis and Microscopic Stat Discontinued Medications Albuterol (Albuterol 2.5 Mg/3 Ml Neb (Adult)) 2.5 mg INH NOW ONE Stop: 10/07/24 07:00 Last Admin: 10/07/24 07:04 Dose: 2.5 mg Documented By: ALEAXNDER Albuterol/Ipratropium (Albuterol/Ipratropium 3 Ml Ampul) 3 ml INH NOW ONE Stop: 10/07/24 07:03 Last Admin: 10/07/24 07:04 Dose: 3 ml Documented By: ALEXANDER Furosemide (Furosemide 40 Mg/4 Ml Vial) 40 mg IV NOW ONE Stop: 10/07/24 08:40 Last Admin: 10/07/24 09:08 Dose: 40 mg Documented By: ALBA Methylprednisolone (Methylprednisolone 125 Mg/2 Ml Vial) 125 mg IV NOW ONE Stop: 10/07/24 07:24 Last Admin: 10/07/24 07:37 Dose: 125 mg Documented By: ALBA Vital Signs Vital signs: Vital Signs - 8 hr 10/07/24 06:52 10/07/24 07:04 10/07/24 07:12 Temperature 97.6 F Pulse Rate 94 H 94 H 93 H Respiratory Rate 26 H 22 Blood Pressure 144/73 H Pulse Oximetry 94 100 100 Oxygen Delivery Method Room Air Room Air Oxygen Flow Rate 0 Fraction of Inspired Oxygen 21 10/07/24 07:24 10/07/24 07:24 10/07/24 07:30 Temperature Pulse Rate 96 H Respiratory Rate Blood Pressure 144/65 H 127/61 Pulse Oximetry 93 Oxygen Delivery Method Oxygen Flow Rate Fraction of Inspired Oxygen 10/07/24 07:30 Temperature Pulse Rate 96 H Respiratory Rate 35 H Blood Pressure Pulse Oximetry 91 Oxygen Delivery Method Oxygen Flow Rate Fraction of Inspired Oxygen MDM - SOB/Dyspnea Differential Diagnosis Differential diagnosis: Likely acute exacerbation of chronic obstructive airways disease, congestive heart failure, community acquired pneumonia, asthma with exacerbation and pulmonary embolism Lab Data 10/07/24 07:20 10/07/24 07:20 Labs: Lab Results 10/07/24 10/07/24 10/07/24 Range/Units 07:20 08:00 10:29 WBC 10.8 (4.5-11.0) X10^3/uL RBC 4.44 (4.0-5.2) X10^6/uL Hgb 13.3 (12.0-16.0) g/dL Hct 40.1 (36-46) % MCV 90.2 (80-100) fL MCH 29.9 (26-34) PG MCHC 33.1 (30-36) % RDW 15.5 H (11.6-14.8) % Plt Count 256 (150-400) X10^3/uL Neut % (Auto) 87.7 H (50-75) % Lymph % (Auto) 5.1 L (25-40) % [place] % (Auto) 5.4 (3-14) % Eos % (Auto) 1.0 L (2-4) % Baso % (Auto) 0.8 (0-2) % Neut # (Auto) 9500 H (5733-3200) /uL Lymph # (Auto) 600 L (9179-9474) /uL [place] # (Auto) 600 (0-900) /uL Eos # (Auto) 100 (0-450) /uL Baso # (Auto) 100 (0-100) /uL PT 12.2 (9.4-12.5) SECONDS INR 1.1 (0.9-1.3) APTT 29 (25.1-36.5) SECONDS D-Dimer 1543 H (<500) ng/ml Sodium 133 L (137-145) mmol/L Potassium 5.0 (3.4-5.1) mmol/L Chloride 103 (98-107) mmol/L Carbon Dioxide 22 (22-32) mmol/L BUN 12 (7-17) mg/dL Creatinine 0.94 (0.52-1.04) mg/dL Estimated GFR 59 L (>60) mL/min BUN/Creatinine Ratio 12.8 (6-22) Glucose 243 H (70-99) mg/dL Lactate 1.8 (0.7-2.1) mmol/L Calcium 8.8 (8.4-10.2) mg/dL Total Bilirubin 0.6 (0.2-1.3) mg/dL AST 30 (14-36) IU/L ALT 26 (<35) IU/L Alkaline Phosphatase 83 (38-126) U/L Total Creatine Kinase 34 (30-135) U/L Troponin I 0.044 H 0.042 H (0.01-0.034) ng/mL NT-Pro-B Natriuret Pep 88606 H (<450) pg/mL Total Protein 6.9 (6.3-8.2) g/dL Albumin 3.8 (3.5-5.0) g/dL Globulin 3.1 (1.7-4.1) g/dL Albumin/Globulin Ratio 1.2 (1.0-2.8) Procalcitonin 0.083 (<0.5) ng/mL Urine Color Yellow Urine Appearance Clear Urine pH 5.5 (4.5-8.0) Ur Specific [place] 1.010 (1.000-1.035) Urine Protein Negative (Negative) Urine Glucose (UA) Negative (Negative) g/dL Urine Ketones Negative (NEGATIVE) Urine Occult Blood 2+ H (Negative) Urine Nitrate Negative (Negative) Urine Bilirubin Negative (NEGATIVE) Urine Urobilinogen 0.2 (0.2) E.U./dL Ur Leukocyte Esterase Negative (NEGATIVE) Urine RBC 1-5/hpf (0-5/HPF) Urine WBC None seen (0-5/HPF) Ur Squamous Epith Cells 1-5 /hpf (0-5/HPF) Urine Bacteria None seen (None) Ur Culture Indicated? Cult not indicated Vol Urine Centrifuged 10ml (spun) Chlamy pneumoniae PCR Not detected (Not Detect) Adenovirus (PCR) Not detected (Not Detect) B. pertussis DNA (PCR) Not detected (Not Detect) B.parapertussis DNA PCR Not detected (Not Detecte) Coronavirus OC43 (PCR) Not detected (Not Detect) Coronavirus HKU1 (PCR) Not detected (Not Detect) Coronavirus 229E (PCR) Not detected (Not Detect) SARS-CoV-2 (PCR) Not detected (Not Detecte) Coronavirus NL63 (PCR) Not detected (Not Detect) Human Metapneumovir PCR Not detected (Not Detect) Influenza Type A (PCR) Not detected (Not Detect) Influenza Type B (PCR) Not detected (Not Detect) M. pneumoniae (PCR) Not detected (Not Detect) Parainfluenza 1 (PCR) Not detected (Not Detect) Parainfluenza 2 (PCR) Not detected (Not Detect) Parainfluenza 3 (PCR) Detected H (Not Detect) Parainfluenza 4 (PCR) Not detected (Not Detect) RSV (PCR) Not detected (Not Detect) Entero/Rhino (PCR) Not detected (Not Detect) Urine Dip Bedside Urine Glucose Negative Bedside Urine Bilirubin - Negative Bedside Urine Ketone - Negative Urine Specific [place] 1.010 Bedside Urine Occult Blood ++ Bedside Urine pH 6.0 Bedside Urine Protein - Negative Bedside Urine Urobilinogen - Negative Bedside Urine Nitrite - Negative Bedside Urine Leukocytes - Negative Esterase Discharge Plan Departure Patient Disposition: Home Clinical Impression: Asthma with exacerbation Qualifiers: Asthma severity: unspecified severity Asthma persistence: unspecified Qualified Code(s): J45.901 - Unspecified asthma with (acute) exacerbation Instructions: DI for Asthma -- Adult Activity Restrictions/Additional Instructions: If there is any change or worsening in her condition such as fevers or increased shortness of breath and please return to the ER right away for further evaluation. Otherwise, please follow-up with your PCP as soon as possible. Your PCP should be ordering you a new echocardiogram as soon as possible to re-evaluate the state of your congestive heart failure, as it seems to be worsening. Prescriptions: New prednisone 50 mg tablet 50 mg PO DAILY Qty: 5 0RF albuterol sulfate 90 mcg/actuation HFA aerosol inhaler 2 puff inhalation Q4-6H PRN (Reason: shortness of breath or wheezing) Qty: 8.5 0RF doxycycline hyclate 100 mg tablet 100 mg PO BID Qty: 14 0RF No Action cinacalcet 30 mg tablet PO DAILY Glucocard Expression Strip See Rx Instructions .ROUTE .COMPLEX Qty: 100 2RF Dose Instruction: USE TO CHECK BLOOD SUGAR FROM FINGER TWICE DAILY Rx Instructions: USE TO CHECK BLOOD SUGAR FROM FINGER TWICE DAILY (DME) Dexcom G6 Skin Care Therapist Misc See Rx Instructions .Route Qty: 1 0RF Rx Instructions: As directed (DME) Dexcom G6 Transmitter Device See Rx Instructions .Route Qty: 1 0RF Rx Instructions: As directed (DME) Dexcom G6 Sensor Device See Rx Instructions .Route Qty: 3 0RF Rx Instructions: As directed furosemide 20 mg tablet 20 mg PO DAILY PRN (Reason: edema) Qty: 90 1RF loperamide [Imodium A-D] 2 mg capsule 2 mg PO QID PRN (Reason: loose stool) Qty: 60 1RF metformin 1,000 mg tablet 1,000 mg PO BID Qty: 180 3RF levothyroxine 50 mcg tablet 50 mcg PO DAILY Qty: 90 3RF Mounjaro 7.5 mg/0.5 mL pen injector 7.5 mg SUBCUT QWEEK Qty: 2 3RF memantine 10 mg tablet 20 mg PO QPM Qty: 180 3RF Rx Instructions: Start after titrating up to 20mg with 5 mg pill (DME) disabled parking permit See Rx Instructions .ROUTE .MEDSUPPLY Qty: 1 0RF Rx Instructions: As directed. patient qualifies for disabled parking as per attached form. cranberry extract 9 cap PO DAILY Referrals: Keenan Stout MD [Primary Care Provider, Family Practice] Stand Alone Forms: Patient Portal/API
== END 2024-10-07 11:10 | disposition home or self-care (01) ==
PROVIDERS: Emergency Provider Emergency Medicine; PCP Family Medicine
DX: J45.901 Unspecified asthma with (acute) exacerbation (principal); I50.9 Heart failure, unspecified; Z79.01 Long term (current) use of anticoagulants
CPT/HCPCS: 71045; 71275; 80053; 81001; 81003; 82550; 83605; 83880; 84145; 84484; 85025; 85379; 85610; 85730; 87040; 87633; 93005; 93010; 94640; 96374; 96375; 99284; J1938; J2919; J7613; Q9967

== ENCOUNTER → 2024-10-20 09:47 | Outpatient (CLI) | payer OTHER, SELFPAY ==
[2023-11-26 16:27] VITALS: BMI 34.7
[2024-10-20 10:14] LABS: Add Manual Diff / Slide Review NO; Hematocrit 44.9 % (36-46); Hemoglobin 14.9 g/dL (12.0-16.0); Lymphocytes Absolute Auto 2000 /uL (1100-4500); Mean Corpuscular HGB Conc 33.1 % (30-36); Mean Corpuscular Hemoglobin 29.4 PG (26-34); Mean Corpuscular Volume 88.6 fL (80-100); Platelet Count 234 X10^3/uL (150-400)
[2024-10-20 10:21] LABS: Hemoglobin A1C% w Est Avg Glu 7.5 % (4.0-6.0)
[2024-10-20 10:41] LABS: Alanine Aminotransferase 17 IU/L (<35); Albumin 3.5 g/dL (3.5-5.0); Albumin Globulin Ratio 1.3 (1.0-2.8); Alkaline Phosphatase 88 U/L (38-126); Blood Urea Nitrogen 16 mg/dL (7-17); Calcium 8.8 mg/dL (8.4-10.2); Carbon Dioxide 28 mmol/L (22-32); Chloride 98 mmol/L (98-107); Estimated Glomerular Filt Rate 50 mL/min (>60); Globulin 2.8 g/dL (1.7-4.1); Glucose 223 mg/dL (70-99); HEMOLYSIS 19 (0-50); Potassium 4.8 mmol/L (3.4-5.1); Sodium 135 mmol/L (137-145); Total Protein 6.3 g/dL (6.3-8.2)
== END ==
PROVIDERS: PCP Family Medicine; Referring Provider Family Medicine; Visit Provider Family Medicine
DX: E78.2 Mixed hyperlipidemia (principal); E11.9 Type 2 diabetes mellitus without complications; I10 Essential (primary) hypertension; E21.3 Hyperparathyroidism, unspecified; G30.9 Alzheimer's disease, unspecified; N39.0 Urinary tract infection, site not specified; F02.80 Dementia in other diseases classified elsewhere, unspecified severity, without behavioral disturbance, psychotic disturbance, mood disturbance, and anxiety
CPT/HCPCS: 36415; 80053; 83036; 85025

== ENCOUNTER → 2024-10-24 13:32 | Outpatient (CLI) | payer OTHER, SELFPAY ==
[2023-11-26 16:27] VITALS: BMI 34.7
--- NOTE | 2024-10-24 13:33 | DI.ECHO.S_ITS ---
[facility]---------+ [facility] : : [address] : : [place] : : [id number] : : Phone: [phone] Echocardiogram Report + + :Name: GATITO ZARAGOZA Study Date: 10/24/2024 Height: 62 in : :Hospital ReadingLocation: Weight: 130 lb: : Gender: Female BSA: 1.6 m2 : :: 1935 Age: 89 yrs : :Reason For Study: WORSENING CONGESTIVE HEART FAILURE : :Ordering Physician: CALEB, : :YOBANI Performed By: Alivia Rivera : :Referring: YOBANI ELLIS : + + Interpretation Summary Mostly regular narrow QRS tachycardia, rate 99-108 BPM. Possible atrial tachycardia. Intermittent PVCs. The left ventricular cavity is small. Left ventricular ejection fraction is estimated to be 50 +/- 5%. Previous LVEF 70 to 75%. The right ventricle is normal size. Right ventricular systolic function is at the lower limits of normal. Overall no significant valvular pathology seen. The IVC is of normal diameter and collapses greater than 50% with a sniff. This suggests a low right atrial pressure of 3 mm Hg. Procedure: A two-dimensional transthoracic echocardiogram with color flow and Doppler was performed. The study quality was technically difficult. Comparison is made with the echocardiogram of 06/11/2018. Patient scanned supine and seated in wheelchair. Mostly regular narrow QRS tachycardia, rate 99-108 BPM. Possible atrial tachycardia. Intermittent PVCs. Left Ventricle: The left ventricular cavity is small. There is normal left ventricular wall thickness. There is no thrombus. A false chord is noted (normal variant). Left ventricular ejection fraction is estimated to be 50 +/- 5%. There is basal inferior wall hypokinesis. Diastolic function could not be accurately assessed due to tachycardia. Right Ventricle: The right ventricle is normal size. Right ventricular systolic function is at the lower limits of normal. Atria: The left atrium grossly appears normal in size. The right atrium is mildly dilated. There is no Doppler evidence for an interatrial shunt. The atrial septum is aneurysmal. Mitral Valve: There is mild to moderate mitral annular calcification. The mitral valve leaflets are mildly calcified. No significant mitral valve stenosis. There is trace mitral regurgitation. Aortic Valve: The aortic valve is not well visualized. The aortic valve is slightly calcified. There is no aortic valve stenosis. No aortic regurgitation is present. Tricuspid Valve: The tricuspid valve leaflets are thin and pliable. There is trace tricuspid regurgitation. Pulmonary artery pressures cannot be estimated because of the lack of a measurable TR jet velocity but the IVC suggests a CVP of around 3 mmHg. Pulmonic Valve: The pulmonic valve is not well visualized. There is no pulmonic valvular regurgitation. Great Vessels: The aortic root is normal size. The dimensions of the ascending aorta are normal. The IVC is of normal diameter and collapses greater than 50% with a sniff. This suggests a low right atrial pressure of 3 mm Hg. Pericardium/ Pleura There is a trivial pericardial effusion noted. There is no pleural effusion. MMode/2D Measurements & Calculations LVIDd: 4.4 cm LVOT diam: 2.1 cm LVIDs: 3.4 cm Ao root diam: 3.0 cm FS: 24.3 % asc Aorta Diam: 3.0 cm IVSd: 0.91 cm LVPWd: 1.0 cm LV diamond. diameter/BSA (cm/m^2): 2.8 LV sys. diameter/BSA (cm/m^2): 2.1 LA A2 area: 19.2 cm2 RA long axis: 4.5 cm LA A4 area: 15.0 cm2 RA area: 13.5 cm2 LA length (vol): 4.7 cm RA vol: 34.7 ml LA vol: 51.7 ml RA : 21.8 ml/m2 LA vol index: 32.5 ml/m2 IVC diam: 1.3 cm RVD1 (basal): 3.1 cm RVD2 (mid): 2.3 cm Doppler Measurements & Calculations Ao V2 max: 111.9 cm/sec LVOT Max Messi: 81.8 cm/sec Ao V2 mean: 82.5 cm/sec LV V1 max P.7 mmHg Ao max P.0 mmHg LV V1 VTI: 11.2 cm Ao mean P.9 mmHg DINORA(I,D): 2.5 cm2 Ao V2 VTI: 15.7 cm DINORA(V,D): 2.6 cm2 sev ratio: 0.71 DINORA indexed to BSA (cm^2/m^2): 1.6 MV E max messi: 96.5 cm/sec PA V2 max: 70.0 cm/sec Med Peak E' Messi: 11.5 cm/sec PA V2 mean: 46.6 cm/sec E/E' med: 8.4 PA mean P.0 mmHg Lat Peak E' Messi: 6.3 cm/sec PA pr(Accel): 37.0 mmHg E/E' lat: 15.3 E/e' average: 11.8 MV dec time: 0.11 sec MV P1/2t: 34.6 msec MV P1/2t max messi: 93.5 cm/sec SV(LVOT): 39.2 ml MVA(2t): 6.4 cm2 Reading Physician:05:25 PM
== END ==
LOC: ECHO 13:32
PROVIDERS: PCP Family Medicine; Referring Provider Family Medicine; Visit Provider Family Medicine
DX: I34.81 Nonrheumatic mitral (valve) annulus calcification (principal); I31.39 Other pericardial effusion (noninflammatory); I50.9 Heart failure, unspecified
CPT/HCPCS: 93306

== ENCOUNTER 2024-12-06 12:35 | Emergency (ER) | payer OTHER, SELFPAY ==
[2023-11-26 16:27] VITALS: BMI 34.7
[2024-12-06] VITALS (10 sets, daily range): BP systolic 101–138; BP diastolic 57–73; PULSE 83–113; RESP 18–20; TEMP 36.2; O2SAT 83–95; BMI 25.2
[2024-12-06 13:22] LABS: Add Manual Diff / Slide Review NO; Hematocrit 39.6 % (36-46); Hemoglobin 12.5 g/dL (12.0-16.0); Lymphocytes Absolute Auto 1300 /uL (1100-4500); Mean Corpuscular HGB Conc 31.5 % (30-36); Mean Corpuscular Hemoglobin 27.3 PG (26-34); Mean Corpuscular Volume 86.4 fL (80-100); Platelet Count 296 X10^3/uL (150-400)
[2024-12-06 13:27] LABS: Base Excess VBG 2.4 mmol/L (0-4); HCO3 VBG 27 mmol/L (24-28); Oxygen Saturation VBG 90 % (70-75); PCO2 VBG 42.3 mmHg (45-50); PO2 VBG 57 mmHg (35-45); Total CO2 VBG 26 mmol/L (24-29); pH VBG 7.42 (7.33-7.43)
[2024-12-06 13:43] LABS: Alanine Aminotransferase 14 IU/L (<35); Albumin 3.6 g/dL (3.5-5.0); Albumin Globulin Ratio 1.0 (1.0-2.8); Alkaline Phosphatase 128 U/L (38-126); Blood Urea Nitrogen 23 mg/dL (7-17); Calcium 9.5 mg/dL (8.4-10.2); Carbon Dioxide 22 mmol/L (22-32); Chloride 103 mmol/L (98-107); Estimated Glomerular Filt Rate 50 mL/min (>60); Globulin 3.5 g/dL (1.7-4.1); Glucose 203 mg/dL (70-99); HEMOLYSIS < 15 (0-50); Potassium 5.3 mmol/L (3.4-5.1); Sodium 137 mmol/L (137-145); Total Protein 7.1 g/dL (6.3-8.2)
[2024-12-06 16:13] LABS: Culture Indicated Urine Specimen Cultured
[2024-12-06] MEDS: POTASSIUM CHLORIDE 20 MEQ/15 ML UDC 40 MEQ PO (18:55)
[2024-12-06] MEDS: SODIUM CHLORIDE 0.9% 1,000 ML 1000 ML IV ×2 (18:56→22:55)
[2024-12-06] MEDS: CIPROFLOXACIN 250 MG TABLET 500 MG PO (18:56)
[2024-12-06 19:33] LABS: Lactate (Lactic Acid) 1.3 mmol/L (0.7-2.1)
--- NOTE | 2024-12-06 20:31 | ED.GENADULT ---
HPI - General Adult General Chief complaint: Urogenital-Female Stated complaint: Dementia, UTI Time Seen by Provider: 12/06/24 18:23 Source: patient and EMS Mode of arrival: EMS History of Present Illness HPI narrative: 89-year-old female with history of dementia, confusion noted by family earlier today, she has had urinary tract infections in the past, they are concerned that she might have urinary tract infection again. No known recent cough, or shortness of breath, denies chest pain. Also denies pain and head, neck, face, abdomen and pelvis, back. No extremity redness or swelling problems. No injury or trauma new activities. No focal weakness to face arm or leg. No focal numbness to face arm or leg. Related Data Home Medications ?Medication ?Instructions ?Recorded ?Confirmed cranberry extract 9 cap PO DAILY 06/22/23 11/16/24 cinacalcet 30 mg tablet mg PO DAILY 05/06/24 11/16/24 Previous Rx's ?Medication ?Instructions ?Recorded disabled parking permit #1 ea 02/09/20 blood sugar diagnostic (Glucocard See Rx Instructions .Route 12/23/20 Expression strips) .COMPLEX #100 ea blood-glucose sensor (Dexcom G6 #3 ea 02/13/22 Sensor device) blood-glucose transmitter (Dexcom #1 ea 02/13/22 G6 Transmitter device) blood-glucose,internal controls consultant,cont #1 ea 02/13/22 (Dexcom G6 Railroad [employer] Builder) metformin 1,000 mg tablet 1,000 mg PO BID #180 tabs 02/03/24 furosemide 20 mg tablet 20 mg PO DAILY PRN edema #90 tabs 04/20/24 Held on 08/07/24. Instructions: Home Medication placed on hold at Doctor's office levothyroxine 50 mcg tablet 50 mcg PO DAILY #90 tabs 04/27/24 memantine 10 mg tablet 20 mg (2 x 10 mg) PO QPM #180 tabs 05/16/24 albuterol sulfate 90 mcg/actuation 2 puff inhalation Q4-6H PRN 10/07/24 aerosol inhaler shortness of breath or wheezing #8.5 grams conjugated estrogens 0.625 mg/gram 0.625 mg vaginal DAILY #30 grams 10/18/24 vaginal cream tirzepatide 10 mg/0.5 mL 10 mg (0.5 mL) SUBCUT QWEEK #2 mL 10/20/24 subcutaneous pen injector (Herminiounterriro) loperamide 2 mg capsule (Imodium 2 mg PO QID PRN loose stool #60 10/27/24 A-D) caps ciprofloxacin HCl 500 mg tablet 500 mg PO BID 7 days #14 tabs 12/06/24 (Cipro) Allergies Allergy/AdvReac Type Severity Reaction Status Date / Time penicillin G (PENICILLIN G) Allergy Intermediate Hives Verified 12/06/24 13:10 Patient History Medical History Acute metabolic encephalopathy History of urinary tract infection Incomplete emptying of bladder Alzheimer disease Atrophic vaginitis Cognitive dysfunction Urge incontinence Secondhand smoke exposure Recurrent urinary tract infection History of asthma Lower extremity edema Hyperparathyroidism Swelling of left hand Obesity (BMI 30-39.9) Infection of fingernail of left hand Laceration of hand Shortness of breath Hypoxemia UTI (urinary tract infection) CVA, old, alterations of sensations Nocturnal hypoxemia Obstructive sleep apnea of adult (~08/2018) Excessive daytime sleepiness CVA (cerebral vascular accident) Fractures (~1962) Foot pain (~1962) Eczema (~2013) Hepatitis C (~1948) Cataract (~2014) Diabetes mellitus (~1996) Contusion of rib on right side Contusion of right shoulder Cellulitis Surgical History History of knee replacement Anesthesia Personal history of spine surgery (~2005) Personal history of spine surgery (~2003) Family History Brother No problems noted. Father No problems noted. Mother No problems noted. Daughter Diabetes mellitus Hypertension Thyroid condition Son Diabetes mellitus Social History household members: family Smoking Status: Never smoker alcohol intake: never caffeine: Yes Smoking Status: Never smoker alcohol intake frequency: 0-2 drinks per day Exam Narrative Exam Narrative: GENERAL: Well-developed patient, in mild distress. HEAD: Atraumatic. Normocephalic. EYES: Pupils equal round and reactive. Extraocular motions intact. No scleral icterus. No injection or drainage. ENT: Nose without bleeding, purulent drainage. Throat without erythema, tonsillar hypertrophy or exudate. Airway patent. NECK: Trachea midline. Non tender CARDIOVASCULAR: Regular rate and rhythm without murmurs, gallops, or rubs. RESPIRATORY: Clear to auscultation. Breath sounds equal bilaterally. No wheezes, rales, or rhonchi. GASTROINTESTINAL: Abdomen soft, non-tender, nondistended. EXTREMITIES: No edema or joint tenderness. BACK: Nontender without deformity or crepitance. No flank tenderness. NEURO: AOx3. Motor functions grossly nonfocal. SKIN: No rash or erythema of visible areas Initial Vital Signs Initial Vital Signs: Vital Signs Temperature 97.2 F L 12/06/24 13:10 Pulse Rate 102 H 12/06/24 13:10 Respiratory Rate 20 12/06/24 13:10 Blood Pressure 116/65 12/06/24 13:10 Pulse Oximetry 94 12/06/24 13:10 Oxygen Delivery Method Room Air 12/06/24 13:10 Course Orders Ordered: Discontinued Medications Albuterol (Albuterol 2.5 Mg/3 Ml Neb (Adult)) 2.5 mg INH NOW ONE Stop: 12/07/24 01:43 Last Admin: 12/07/24 02:12 Dose: 2.5 mg Documented By: JULIO Ciprofloxacin (Ciprofloxacin 250 Mg Tablet) 500 mg PO NOW ONE Stop: 12/06/24 18:24 Last Admin: 12/06/24 18:56 Dose: 500 mg Documented By: Dextrose (Dextrose 50 % In Water 25 Gm/50 Ml Syringe) 25 gm IV NOW ONE Stop: 12/07/24 01:43 Last Admin: 12/07/24 02:05 Dose: 25 gm Documented By: JULIO Sodium Chloride (Normal Saline 0.9%) 1,000 mls @ 1,000 mls/hr IV BOLUS ONE Stop: 12/06/24 19:23 Last Infusion: 12/06/24 21:14 Dose: Infused Documented By: Admin: 12/06/24 18:56 Dose: 1,000 mls/hr Documented By: Sodium Chloride (Normal Saline 0.9%) 1,000 mls @ 1,000 mls/hr IV BOLUS ONE Stop: 12/06/24 23:40 Last Infusion: 12/06/24 23:46 Dose: Infused Documented By: Admin: 12/06/24 22:55 Dose: 1,000 mls/hr Documented By: JULIO Sodium Chloride (Normal Saline 0.9%) 1,000 mls @ 1,000 mls/hr IV BOLUS ONE Stop: 12/07/24 07:53 Last Infusion: 12/07/24 07:36 Dose: Infused Documented By: Admin: 12/07/24 06:30 Dose: 1,000 mls/hr Documented By: JULIO Insulin Human Regular (Insulin Regular 100 Unit/Ml 3 Ml Vial) 5 unit IV NOW ONE Stop: 12/07/24 01:43 Last Admin: 12/07/24 02:26 Dose: 5 unit Documented By: JULIO Co-signed By: Ondansetron HCl (Ondansetron 4 Mg/2 Ml Inj) 4 mg IV NOW PRN PRN Reason: Nausea And Vomiting Ondansetron HCl (Ondansetron 4 Mg Odt) 4 mg PO NOW PRN PRN Reason: Nausea And Vomiting Potassium Chloride (Potassium Chloride 20 Meq/15 Ml Udc) 40 meq PO NOW ONE Stop: 12/06/24 18:25 Last Admin: 12/06/24 18:55 Dose: 40 meq Documented By: Sodium Bicarbonate (Sodium Bicarb 8.4% Syringe) 65 meq 1 meq/kg (65 meq) IV NOW ONE Stop: 12/07/24 01:43 Last Admin: 12/07/24 02:39 Dose: Not Given Documented By: JULIO Sodium Bicarbonate (Sodium Bicarb 8.4% Syringe) 50 meq IV NOW ONE Stop: 12/07/24 02:07 Last Admin: 12/07/24 02:09 Dose: 50 meq Documented By: JULIO Sodium Zirconium Cyclosilicate (Sodium Zirconium Cyclosilicate 10 Gm Powd.Pack) 10 gm PO NOW ONE Stop: 12/07/24 01:43 Last Admin: 12/07/24 02:06 Dose: 10 gm Documented By: JULIO Vital Signs Vital signs: Vital Signs - 8 hr 12/07/24 08:08 Temperature 98.8 F Pulse Rate 99 H Respiratory Rate 16 Blood Pressure 115/60 Pulse Oximetry 99 Oxygen Delivery Method Room Air Medical Decision Making Lab Data Lab results reviewed: Yes I reviewed the patient's lab results. Lab results narrative: White blood cell count 52665, hemoglobin 12.5, platelets adequate. Glucose 203. BUN 23 with creatinine 1.07, serum CO2 22. Potassium 5.3 slight elevation, sodium 137 normal. VBG shows pH 7.42 normal range. Liver functions show slight elevation alkaline phosphatase otherwise normal. Urinalysis shows presence of bacteria, urine culture triggered. 12/06/24 13:11 12/07/24 05:47 Labs: Lab Results 12/06/24 12/06/24 12/06/24 Range/Units 13:11 13:23 15:40 WBC 13.8 H (4.5-11.0) X10^3/uL RBC 4.58 (4.0-5.2) X10^6/uL Hgb 12.5 (12.0-16.0) g/dL Hct 39.6 (36-46) % MCV 86.4 (80-100) fL MCH 27.3 (26-34) PG MCHC 31.5 (30-36) % RDW 17.0 H (11.6-14.8) % Plt Count 296 (150-400) X10^3/uL Neut % (Auto) 81.7 H (50-75) % Lymph % (Auto) 9.4 L (25-40) % [place] % (Auto) 6.2 (3-14) % Eos % (Auto) 2.0 (2-4) % Baso % (Auto) 0.7 (0-2) % Neut # (Auto) 54409 H (5936-1694) /uL Lymph # (Auto) 1300 (1327-6876) /uL [place] # (Auto) 900 (0-900) /uL Eos # (Auto) 300 (0-450) /uL Baso # (Auto) 100 (0-100) /uL VBG pH 7.42 (7.33-7.43) VBG pCO2 42.3 L (45-50) mmHg VBG pO2 57 H (35-45) mmHg VBG HCO3 27 (24-28) mmol/L VBG Total CO2 26 (24-29) mmol/L VBG O2 Saturation 90 H (70-75) % VBG Base Excess 2.4 (0-4) mmol/L Sodium 137 (137-145) mmol/L Potassium 5.3 H (3.4-5.1) mmol/L Chloride 103 (98-107) mmol/L Carbon Dioxide 22 (22-32) mmol/L BUN 23 H (7-17) mg/dL Creatinine 1.07 H (0.52-1.04) mg/dL Estimated GFR 50 L (>60) mL/min BUN/Creatinine Ratio 21.5 (6-22) Glucose 203 H (70-99) mg/dL POC Whole Bld Glucose 209 H (70-99) mg/dL Lactate (0.7-2.1) mmol/L Calcium 9.5 (8.4-10.2) mg/dL Total Bilirubin 1.1 (0.2-1.3) mg/dL AST 18 (14-36) IU/L ALT 14 (<35) IU/L Alkaline Phosphatase 128 H (38-126) U/L Total Protein 7.1 (6.3-8.2) g/dL Albumin 3.6 (3.5-5.0) g/dL Globulin 3.5 (1.7-4.1) g/dL Albumin/Globulin Ratio 1.0 (1.0-2.8) Urine RBC None seen (0-5/HPF) Urine WBC 5-10/hpf H (0-5/HPF) Ur Squamous Epith Cells 0-1 /hpf (0-5/HPF) Triple Phos Crystals Moderate Urine Bacteria Many (>30) H (None) Ur Culture Indicated? Specimen cultured Vol Urine Centrifuged 10ml (spun) 12/06/24 12/07/24 12/07/24 Range/Units 19:12 01:00 05:47 WBC (4.5-11.0) X10^3/uL RBC (4.0-5.2) X10^6/uL Hgb (12.0-16.0) g/dL Hct (36-46) % MCV (80-100) fL MCH (26-34) PG MCHC (30-36) % RDW (11.6-14.8) % Plt Count (150-400) X10^3/uL Neut % (Auto) (50-75) % Lymph % (Auto) (25-40) % [place] % (Auto) (3-14) % Eos % (Auto) (2-4) % Baso % (Auto) (0-2) % Neut # (Auto) (1194-4713) /uL Lymph # (Auto) (3951-6478) /uL [place] # (Auto) (0-900) /uL Eos # (Auto) (0-450) /uL Baso # (Auto) (0-100) /uL VBG pH (7.33-7.43) VBG pCO2 (45-50) mmHg VBG pO2 (35-45) mmHg VBG HCO3 (24-28) mmol/L VBG Total CO2 (24-29) mmol/L VBG O2 Saturation (70-75) % VBG Base Excess (0-4) mmol/L Sodium 135 L 137 (137-145) mmol/L Potassium 5.7 H 4.9 (3.4-5.1) mmol/L Chloride 109 H 107 (98-107) mmol/L Carbon Dioxide 21 L 20 L (22-32) mmol/L BUN 24 H 24 H (7-17) mg/dL Creatinine 1.00 1.01 (0.52-1.04) mg/dL Estimated GFR 55 L 54 L (>60) mL/min BUN/Creatinine Ratio 24.0 H 23.8 H (6-22) Glucose 200 H 210 H (70-99) mg/dL POC Whole Bld Glucose (70-99) mg/dL Lactate 1.3 (0.7-2.1) mmol/L Calcium 8.8 9.0 (8.4-10.2) mg/dL Total Bilirubin (0.2-1.3) mg/dL AST (14-36) IU/L ALT (<35) IU/L Alkaline Phosphatase (38-126) U/L Total Protein (6.3-8.2) g/dL Albumin (3.5-5.0) g/dL Globulin (1.7-4.1) g/dL Albumin/Globulin Ratio (1.0-2.8) Urine RBC (0-5/HPF) Urine WBC (0-5/HPF) Ur Squamous Epith Cells (0-5/HPF) Triple Phos Crystals Urine Bacteria (None) Ur Culture Indicated? Vol Urine Centrifuged MDM Narrative Medical decision making narrative: 89yo F with history dementia seems confused worse than baseline per famiy, history of UTI, family concern about another UTI. Afebrile, SIRS screen negative. Nonfocal neuro exam. Labs pending. Lab data: White blood cell count 61199, hemoglobin 12.5, platelets adequate. Glucose 203. BUN 23 with creatinine 1.07, serum CO2 22. Potassium 5.3 slight elevation, sodium 137 normal. VBG shows pH 7.42 normal range. Liver functions show slight elevation alkaline phosphatase otherwise normal. Urinalysis shows presence of bacteria, urine culture triggered. Lab review, most recent urine culture microbiology results: 09/2024 no growth x2 different dates. 07/2024 urine culture showed Pseudomonas species, quinolone-sensitive including ciprofloxacin. History of penicillin allergy. Oral ciprofloxacin for UTI coverage. Prescription for further oral ciprofloxacin sent to her pharmacy. Oral potassium given, was to be ordered on a different patient, but was mistakenly ordered/given to this patient, we will repeat BMP. Repeat potassium 5.7 elevated. Patient was given oral potassium with initial potassium 5.3, med error, ordered on the wrong patient. We will give IV fluids, dextrose, insulin, albuterol, bicarbonate. Recheck BMP 0600. 0600, repeat BMP sent, results pending. BNP results show improved potassium, renal function normal. 0630, heart rate 105-106 sinus tachycardia on monitor, patient has received 2 L of fluids. Consider admission, patient equivocal about whether or not she wants to be admitted, history of dementia. No family present at this time to help make disposition decisions. We will give an additional L of fluids for now. Possible admission, versus home with family. Contact family later this morning, hopefully can be discharged home on oral antibiotics if there is resolution of her mild tachycardia. 0700, repeat heart rate 90s, normotensive. Discharged with oral antibiotics for UTI as planned. Discharge Plan Departure Patient Disposition: Home Clinical Impression: Urinary tract infection Instructions: DI for Urinary Tract Infection (UTI) Activity Restrictions/Additional Instructions: History of dementia, confusion, hallucinations, that sometimes happens with infections. History of prior urinary tract infection. Urinalysis did in fact look infected today. IV fluids given. Symptoms seemed to be improved. Possible potential component of dehydration. Oral antibiotics ciprofloxacin given in the emergency department for urinary tract infection treatment, prescription sent for further course of antibiotics to pharmacy. Take antibiotics as directed. Recheck symptoms advised in the your regular doctor in the next couple of days. Continue taking chronic medications as prescribed. Return to this/nearest emergency department for any change worsening symptoms or any concerns prior. Prescriptions: New ciprofloxacin HCl [Cipro] 500 mg tablet 500 mg PO BID 7 Days Qty: 14 0RF No Action cinacalcet 30 mg tablet PO DAILY Glucocard Expression Strip See Rx Instructions .ROUTE .COMPLEX Qty: 100 2RF Dose Instruction: USE TO CHECK BLOOD SUGAR FROM FINGER TWICE DAILY Rx Instructions: USE TO CHECK BLOOD SUGAR FROM FINGER TWICE DAILY (DME) Dexcom G6 [employer] Misc See Rx Instructions .Route Qty: 1 0RF Rx Instructions: As directed (DME) Dexcom G6 Transmitter Device See Rx Instructions .Route Qty: 1 0RF Rx Instructions: As directed (DME) Dexcom G6 Sensor Device See Rx Instructions .Route Qty: 3 0RF Rx Instructions: As directed furosemide 20 mg tablet 20 mg PO DAILY PRN (Reason: edema) Qty: 90 1RF loperamide [Imodium A-D] 2 mg capsule 2 mg PO QID PRN (Reason: loose stool) Qty: 60 1RF metformin 1,000 mg tablet 1,000 mg PO BID Qty: 180 3RF levothyroxine 50 mcg tablet 50 mcg PO DAILY Qty: 90 3RF memantine 10 mg tablet 20 mg PO QPM Qty: 180 3RF Rx Instructions: Start after titrating up to 20mg with 5 mg pill (DME) disabled parking permit See Rx Instructions .ROUTE .MEDSUPPLY Qty: 1 0RF Rx Instructions: As directed. patient qualifies for disabled parking as per attached form. cranberry extract 9 cap PO DAILY Mounjaro 10 mg/0.5 mL pen injector 10 mg SUBCUT QWEEK Qty: 2 3RF albuterol sulfate 90 mcg/actuation HFA aerosol inhaler 2 puff inhalation Q4-6H PRN (Reason: shortness of breath or wheezing) Qty: 8.5 0RF conjugated estrogens 0.625 mg/gram cream 0.625 mg vaginal DAILY Qty: 30 11RF Rx Instructions: use once daily for two weeks then decrease to twice weekly Referrals: Keenan Stout MD [Primary Care Provider, Family Practice]
[2024-12-07] VITALS (7 sets, daily range): BP systolic 112–143; BP diastolic 57–66; PULSE 97–108; RESP 16; TEMP 37.1; O2SAT 83–99
[2024-12-07 01:37] LABS: Blood Urea Nitrogen 24 mg/dL (7-17); Calcium 8.8 mg/dL (8.4-10.2); Carbon Dioxide 21 mmol/L (22-32); Chloride 109 mmol/L (98-107); Estimated Glomerular Filt Rate 55 mL/min (>60); Glucose 200 mg/dL (70-99); HEMOLYSIS < 15 (0-50); Sodium 135 mmol/L (137-145)
[2024-12-07 01:38] LABS: Potassium 5.7 mmol/L (3.4-5.1)
[2024-12-07] MEDS: DEXTROSE 50 % IN WATER 25 GM/50 ML SYRINGE IV (02:05)
[2024-12-07] MEDS: SODIUM ZIRCONIUM CYCLOSILICATE 10 GM POWD.PACK PO (02:06)
[2024-12-07] MEDS: SODIUM BICARB 8.4% SYRINGE 50 MEQ IV (02:09)
[2024-12-07] MEDS: ALBUTEROL 2.5 MG/3 ML NEB (ADULT) INH (02:12)
[2024-12-07] MEDS: INSULIN REGULAR 100 UNIT/ML 3 ML VIAL IV (02:26)
--- NOTE | 2024-12-07 06:00 | PC.NURSE ---
pt repositioned on stretcher and lights dimmed
[2024-12-07 06:05] LABS: Blood Urea Nitrogen 24 mg/dL (7-17); Calcium 9.0 mg/dL (8.4-10.2); Carbon Dioxide 20 mmol/L (22-32); Chloride 107 mmol/L (98-107); Estimated Glomerular Filt Rate 54 mL/min (>60); Glucose 210 mg/dL (70-99); HEMOLYSIS 18 (0-50); Potassium 4.9 mmol/L (3.4-5.1); Sodium 137 mmol/L (137-145)
[2024-12-07] MEDS: SODIUM CHLORIDE 0.9% 1,000 ML 1000 ML IV (06:30)
== END 2024-12-07 08:11 | disposition home or self-care (01) ==
PROVIDERS: Emergency Medicine; Emergency Provider Emergency Medicine; PCP Family Medicine
DX: N39.0 Urinary tract infection, site not specified (principal)
CPT/HCPCS: 36415; 51798; 80048; 80053; 81015; 82805; 82962; 83605; 85025; 87077; 87086; 87186; 96361; 96374; 96375; 99284; J7613

== ENCOUNTER → 2024-12-08 15:23 | Outpatient (CLI) | payer OTHER, SELFPAY ==
[2023-11-26 16:27] VITALS: BMI 34.7
--- NOTE | 2024-12-08 15:25 | DIAB.MNTFU ---
Follow-up Diabetes Medical Nutrition Therapy Assessment Name: Isabella Lucero Date: 12/08/24 Time: 225-235p Dx: Type II Diabetes Isabella presents for DM visit virtually via [facility], accompanied by her children, Sarwat and Malu. PMH is significant for Alzheimer disease. T2DM dx at least x25 years. Sarwat and Malu help with caregiving for their mother. Isabella recently dx with UTI. Though she is present she is not able to stay awake during our visit. Malu reports they have increased Isabella's Mounjaro to the rx of 10mg per week. No changes to appetite reported, though at baseline her appetite has been limited. Sometimes only eating 2x per day. Has changed to a leakproof water bottle, which has reduced water spills and made water more available to her, though Malu reports she still is not drinking adequately. Diet Recall: 6-7a: banana and ensure 8-9a: Nothing OR 1/2 ear of corn OR apple 530-630p: imitation crab and ensure water Anthropometrics: Ht: 5'3 Wt: 167.6# 09/2024 Weight history: Physical Activity: Not discussed Self-Monitoring Blood Glucose: Jakob CGM with excessive time >250mg/dl, but in time range pretty good >60%. TIR: 6% very high 30% high 64% in range 0% low or very low avmg/dl GMI: 7.4% variance: 28.5% Last TIR: 7% very high 24% high 69% in range 0% low or very low avmg/dl GMI: 7.3% variance: 28.7% Diabetes Medications: 1000mg Metformin BID 10mg Mounjaro Pertinent Labs: HgA1c: 7.5% 09/2024 GFR: 50 L Cr: 1.08 H 11/2024 GFR: 54 L Cr: 1.01 Past Medical History: (Last Reviewed 10/18/24 @ 09:23 by Adin Farah DO) Acute metabolic encephalopathy Alzheimer disease Atrophic vaginitis Cataract (~2014) Cellulitis Cognitive dysfunction Contusion of rib on right side Contusion of right shoulder CVA (cerebral vascular accident) CVA, old, alterations of sensations Diabetes mellitus (~1996) Eczema (~2013) Excessive daytime sleepiness Foot pain (~1962) Fractures (~1963) Hepatitis C (~1949) History of asthma History of urinary tract infection Hyperparathyroidism Hypoxemia Incomplete emptying of bladder Significantly improvedInfection of fingernail of left hand Laceration of hand Lower extremity edema Nocturnal hypoxemia Obesity (BMI 30-39.9) Obstructive sleep apnea of adult (~08/2018) Recurrent urinary tract infection Secondhand smoke exposure Shortness of breath Swelling of left hand Urge incontinence UTI (urinary tract infection) Nutrition Rx: Carbohydrates: Meal:30-45gSnack:15-30g Nutrition Diagnosis: - Inconsistent protein intake r/t limited appetite aeb diet recall and reported- improved - Predicted inadequate fluid intake r/t limited ability to manage water bottle use aeb daughter report of spilling water bottle, limited ability to open bottle, and dark urine- improved/in progress - Inconsistent energy intake r/t limited appetite and food acceptance aeb daughter's report- new Intervention: This participant was very receptive. Provided appropriate educational handouts. Discussed the following topics: Encouraged eating TID Encouraged smoothies or small ice cream portions if her appetite is limited Encouraged hydration for reduced UTI risk and for overall kidney health Encouraged plant based proteins given GFR Created SMART goals for patient self-care and success. Goals: Try ONS BID- met Try leakproof water bottle- met Try smoothies with PB at lunch if limited appetite- new OR can try 1c or less of ice cream at lunch for kcals/hydration- new Follow-up: TEQUILA HAUSER follow-up in 4-5 weeks Ayla Dubon RDN, ANALISA Certified Diabetes Care and [employer] Car Cleaning Supervisor P: [phone] Thank you for this referral
== END ==
LOC: DIET 15:24
PROVIDERS: PCP Family Medicine; Referring Provider Family Medicine
DX: E11.9 Type 2 diabetes mellitus without complications (principal); G30.9 Alzheimer's disease, unspecified; F02.80 Dementia in other diseases classified elsewhere, unspecified severity, without behavioral disturbance, psychotic disturbance, mood disturbance, and anxiety; Z79.85 Long-term (current) use of injectable non-insulin antidiabetic drugs; Z79.84 Long term (current) use of oral hypoglycemic drugs
CPT/HCPCS: 97803

== ENCOUNTER → 2024-12-15 10:25 | Outpatient (CLI) | payer OTHER, SELFPAY ==
[2023-11-26 16:27] VITALS: BMI 34.7
== END ==
LOC: LAB 10:26
PROVIDERS: PCP Family Medicine; Visit Provider Family Medicine
DX: R30.0 Dysuria (principal)
CPT/HCPCS: 87086

== ENCOUNTER → 2024-12-15 14:35 | Outpatient (CLI) | payer OTHER, SELFPAY ==
[2023-11-26 16:27] VITALS: BMI 34.7
--- NOTE | 2024-12-15 14:36 | DI.CT.S_ITS ---
PROCEDURE: CT HEAD/BRAIN WO CON INDICATIONS: difficulty swallowing, difficulty speaking TECHNIQUE: Noncontrast 4.5 mm thick angled axial sections acquired from the foramen magnum to the vertex, with coronal and sagittal reformats. For radiation dose reduction, the following was used: automated exposure control, adjustment of mA and/or kV according to patient size. COMPARISON: [facility], MR, MR HEAD/BRAIN WO CON, 03/31/2019, 19:30. [facility], CT, CT HEAD/BRAIN WO CON, 11/05/2023, 2:07. [facility], CT, CT HEAD/BRAIN WO CON, 10/17/2023, 14:22. [facility], CT, CT HEAD/BRAIN WO CON, 03/31/2019, 19:00. FINDINGS: Image quality: Diagnostic. CSF spaces: Basal cisterns are patent. No extra-axial fluid collections. The ventricles are symmetric in size and shape. Brain: No intracranial bleeds or mass effect. There is cerebral volume loss, with resultant ventricular and sulcal prominence. There are periventricular and deep white matter chronic small vessel ischemic changes. There is intracranial internal carotid artery atherosclerosis. Symmetric calcification can be seen involving the basal ganglia, which is considered to be normal for age. Skull and face: There is a mild scalp hematoma seen superiorly and on the left, as on series 4, image 23. No associated calvarial fracture can be seen. Calvarium and visualized facial bones appear intact, without suspicious lesions. Sinuses: Visualized sinuses and mastoids are clear. IMPRESSION: No imaging explanation is found for this patient's presenting symptoms. Mild scalp hematoma seen superiorly and on the left. No displaced calvarial fracture can be seen. No acute intracranial hemorrhage is seen. No acute intracranial process is seen. If there is strong clinical suspicion for an acute stroke, please consider a brain MRI for further evaluation, as it is more sensitive (assuming that there is no contraindication to MRI). Dictated by: Jose A Johns M.D. on 12/15/2024 at 13:49 Approved by: Jose A Johns M.D. on 12/15/2024 at 13:51
== END ==
PROVIDERS: PCP Family Medicine; Referring Provider Family Medicine; Visit Provider Family Medicine
DX: S00.03XA Contusion of scalp, initial encounter (principal); F09 Unspecified mental disorder due to known physiological condition; R13.10 Dysphagia, unspecified; G30.9 Alzheimer's disease, unspecified; F02.80 Dementia in other diseases classified elsewhere, unspecified severity, without behavioral disturbance, psychotic disturbance, mood disturbance, and anxiety; R30.0 Dysuria
CPT/HCPCS: 70450; 87086